=== PATIENT | female | born 1950 | race Caucasian/White ===

== ENCOUNTER 2016-12-04 11:53 | Emergency (ER) | payer MEDICARE ==
[2016-12-04 12:03] VITALS: TEMP 98.2; O2SAT 100
--- NOTE | 2016-12-04 12:20 | C.PDOC ---
History Of Present Illness 66 y/o female presents to Emergency Department for evaluation of area of swelling at dorsum of left wrist for the past month. Patient denies any pain, fall, injury, rash, or fever. Patient states that she has Hx of HTN, but has not taken her BP medications for the past 6 months. Patient states that she stopped taking the BP medications because her PMD, told her about the side effects of the medication is "stroke". Otherwise, patient denies chest pain, palpitations, shortness of breath, headache, dizziness, fever. Time Seen by Provider: 12/04/16 12:06 Chief Complaint (Nursing): Finger,Hand,&Wrist History Per: Patient History/Exam Limitations: no limitations Onset/Duration Of Symptoms: Days (1 month) Current Symptoms Are (Timing): Still Present Severity: Mild Pain Scale Rating Of: 0 Additional History Per: Patient Past Medical History Reviewed: Historical Data, Nursing Documentation, Vital Signs Vital Signs: Last Vital Signs Temp 98.2 F 12/04/16 11:59 Pulse 71 12/04/16 12:37 Resp 16 12/04/16 12:37 BP 240/127 H 12/04/16 12:37 Pulse Ox 100 12/04/16 13:42 - Medical History PMH: HTN Surgical History: No Surg Hx Family History: States: No Known Family Hx - Social History Hx Alcohol Use: No Hx Substance Use: No - Immunization History Hx Tetanus Toxoid Vaccination: No Hx Influenza Vaccination: No Hx Pneumococcal Vaccination: No Review Of Systems Except As Marked, All Systems Reviewed And Found Negative. Constitutional: Negative for: Fever, Chills Cardiovascular: Negative for: Chest Pain, Palpitations Respiratory: Negative for: Cough, Shortness of Breath Gastrointestinal: Negative for: Nausea, Vomiting Musculoskeletal: Negative for: Hand Pain Skin: Positive for: Other (swelling to left wrist) Neurological: Negative for: Weakness, Numbness, Headache, Dizziness Physical Exam - Physical Exam Appears: Well, Non-toxic, No Acute Distress, Other (mildly anxious) Skin: Warm, Dry, No Rash, Other (1cm palpable mild ganglion cyst at the dorsal aspect of left wrist, no erythema, non-tender) Head: Normacephalic Eye(s): bilateral: Normal Inspection Oral Mucosa: Moist Neck: Supple Cardiovascular: Rhythm Regular Respiratory: Normal Breath Sounds, No Rales, No Rhonchi, No Wheezing Extremity: Normal ROM (FROM of left wrist and digits), No Tenderness, Capillary Refill (< 2 seconds all digits), No Deformity, No Swelling Pulses: Left Radial: Normal, Right Radial: Normal Neurological/Psych: Oriented x3, Normal Motor, Normal Sensation ED Course And Treatment O2 Sat by Pulse Oximetry: 100 (on RA) Pulse Ox Interpretation: Normal Progress Note: Patient does not know what HTN meds she is supposed to be taking. Called [facility] pharmacy, patient was previously taking Lisinopril 40mg and amlodipine 10mg daily. Will give 1 dose in ED and Rxs for same. Patient instructed to follow up with PMD Dr. Brady in 1-2 days. Follow up info for hand surgery also given. Patient is well appearing, asymptomatic and comfortable being dfischarged home. She understands she should return to ED if symptoms worsen. Reevaluation Time: 12:30 Reassessment Condition: Improved Disposition Counseled Patient/Family Regarding: Studies Performed, Diagnosis, Need For Followup, Rx Given - Disposition Referrals: Libia Brady MD [Medical Doctor] - Gil Porter MD [Staff Provider] - Disposition: HOME/ ROUTINE Disposition Time: 12:30 Condition: STABLE Additional Instructions: FOLLOW UP WITH YOUR DOCTOR IN 1-2 DAYS IF GANGLION CYST GETS LARGER OR CAUSES YOU PAIN, FOLLOW UP WITH HAND SURGEON YOU NEED TO TAKE YOUR BLOOD PRESSURE MEDICATIONS EVERY DAY!!! RETURN TO ER IF YOU HAVE ANY CONCERNING SYMPTOMS Prescriptions: amLODIPine [Norvasc] 10 mg PO DAILY #30 tab Lisinopril [Zestril] 40 mg PO DAILY #30 tab Instructions: Ganglion Cysts (ED), Hypertension (ED) Forms: [employer] (Bulgarian) Print Language: MALIAN - POA Present On Arrival: None - Clinical Impression Clinical Impression: Ganglion cyst, Uncontrolled hypertension, Noncompliance with medication regimen - Scribe Statement The provider has reviewed the documentation as recorded by the Scribcollin Willis All medical record entries made by the Scribe were at my direction and personally dictated by me. I have reviewed the chart and agree that the record accurately reflects my personal performance of the history, physical exam, medical decision making, and the department course for this patient. I have also personally directed, reviewed, and agree with the discharge instructions and disposition.
[2016-12-04 12:57] VITALS: BP 240/127; PULSE 71; RESP 16
== END 2016-12-04 12:38 | disposition home or self-care (01) ==
LOC: C.ER 11:53
DX: M67.432 Ganglion, left wrist (principal); I10 Essential (primary) hypertension; Z91.19 Patient's noncompliance with other medical treatment and regimen

== ENCOUNTER 2018-03-25 20:46 | Inpatient (IN) | payer MEDICARE ==
--- NOTE | 2018-03-25 20:49 | C.PDOC ---
History Of Present Illness patient was brought in in acute respiratory distress. Unable to talk, just nods appropriately to questions. Pulse ox 85 on room air. Patient was placed on bipap. Saturation increasing to 94 Time Seen by Provider: 03/25/18 20:48 Past Medical History Reviewed: Historical Data, Nursing Documentation, Vital Signs - Medical History PMH: HTN Family History: States: No Known Family Hx - Social History Hx Alcohol Use: No Hx Substance Use: No - Immunization History Hx Tetanus Toxoid Vaccination: No Hx Influenza Vaccination: No Hx Pneumococcal Vaccination: No Review Of Systems Review Of Systems: ROS cannot be obtained secondary to pt's inabilty to answer questions. Physical Exam - Physical Exam Appears: In Acute Distress Skin: Dry, Pale Head: Normacephalic Eye(s): bilateral: Normal Inspection Nose: Flaring Oral Mucosa: Dry Teeth: Other (poor dentition) Neck: Supple Chest: Symmetrical Cardiovascular: Rhythm Regular Respiratory: Decreased Breath Sounds, Rales, Rhonchi, No Wheezing Gastrointestinal/Abdominal: Soft, No Tenderness, No Distention Back: No CVA Tenderness Extremity: Normal ROM Extremity: Bilateral: Atraumatic, Normal Color And Temperature, Normal ROM Pulses: Left Dorsalis Pedis: Normal, Right Dorsalis Pedis: Normal Neurological/Psych: Oriented x3 Gait: Unable To Assess ED Course And Treatment - Laboratory Results Result Diagrams: 03/25/18 21:03 03/25/18 21:03 ECG: Interpreted By Me, Viewed By Me ECG Rhythm: Sinus Tachycardia (126), R BBB, Nonspecific Changes Pulse Ox Interpretation: Abnormal (placed on bipap) - Radiology CXR: Interpreted by Me, Viewed By Me CXR Interpretation: Yes: COPD, Cardiomegaly, Other (mild vasc congestion). No: Infiltrates, Fracture Progress Note: 9:42 pm much improved. decreased oxygen to 50 % Critical Care Time - Critical Care Note Total Time (in mins): 30 Documented critical care: time excludes all time spent performing seperately billable procedures. Disposition Discussed With : Libia Brady Comment: accepted the pt on her service and took over the care at 9:48 PM Doctor Will See Patient In The: Hospital Counseled Patient/Family Regarding: Studies Performed, Diagnosis - Disposition Disposition: HOSPITALIZED Disposition Time: 20:49 Condition: FAIR - POA Present On Arrival: Poor Glycemic Control - Clinical Impression Clinical Impression: Dyspnea, Respiratory distress, acute Decision To Admit - Pt Status Changed To: Hospital Disposition Of: Inpatient - Admit Certification Admit to Inpatient:: After my assessment, the patient will require hospitalization for at least two midnights. This is because of the severity of symptoms shown, intensity of services needed, and/or the medical risk in this patient being treated as an outpatient. - InPatient: Physician Admission Certification: I certify that this patient requires 2 or more midnights of care for the following reason:: After my assessment, the patient will require hospitalization for at least two midnights. This is because of the severity of symptoms shown, intensity of services needed, and/or the medical risk in this patient being treated as an outpatient. - . Bed Request Type: Telemetry Admitting Physician: Libia Brady Patient Diagnosis: Dyspnea, Respiratory distress, acute
[2018-03-25 20:54] VITALS: BMI 19.4
[2018-03-25 21:08] LABS: BASO # 0.1 K/uL (0.0-0.2); BASO % 0.7 % (0.0-2.0); EOS # 0.9 K/uL (0.0-0.7); EOS % 7.2 % (0.0-4.0); HEMOGLOBIN 12.4 g/dL (11.0-16.0); LYMPH # 3.1 K/uL (1.0-4.3); LYMPH % 25.5 % (20.0-40.0); MEAN CELL VOLUME 95.4 fL (81.0-99.0); MEAN CORPUSCULAR HEMOGLOBIN 29.7 pg (27.0-31.0); MEAN CORPUSCULAR HGB CONC 31.1 g/dL (33.0-37.0); MEAN PLATELET VOLUME 7.7 fL (7.2-11.7); MONO # 1.2 K/uL (0.0-0.8); MONO % 9.6 % (0.0-10.0); NEUT # 6.9 K/uL (1.8-7.0); NRBC % 0.2 % (0.0-2.0); RBC 4.16 Mil/uL (3.80-5.20); WHITE BLOOD COUNT 12.1 K/uL (4.8-10.8)
[2018-03-25 21:17] LABS: PROTHROMBIN TIME 10.8 SECONDS (9.7-12.2)
[2018-03-25 21:19] LABS: ABG ALLEN TEST POS; ARTERIAL BLOOD GAS HCO3 23.4 mmol/L (21-28); ARTERIAL BLOOD GAS O2 SAT 99.2 % (95-98); ARTERIAL BLOOD GAS PCO2 40 mm/Hg (35-45); ARTERIAL BLOOD GAS PH 7.37 (7.35-7.45); ARTERIAL BLOOD GAS PO2 323 mm/Hg (80-100); ARTERIAL BLOOD GAS TCO2 24.3 mmol/L (22-28)
[2018-03-25 21:24] LABS: ALBUMIN 4.7 g/dL (3.5-5.0); AST/SGOT 23 U/L (14-36); BLOOD UREA NITROGEN 19 mg/dL (7-17); GFR NON-AFRICAN AMERICAN > 60
[2018-03-25] MEDS ORDERED: Albuterol-Ipratrop 3 mg / 0.5 (3 ml) UD ONE (21:26)
[2018-03-25 21:28] LABS: ALT/SGPT < 6 U/L (9-52)
[2018-03-25 21:36] LABS: B-TYPE NATRIURETIC PEPTIDE 178 pg/mL (0-900)
[2018-03-25] MEDS: Albuterol-Ipratrop 3 mg / 0.5 (3 ml) UD IH SCH (21:39)
[2018-03-25] MEDS ORDERED: Enoxaparin 40 mg Syringe SC STA (21:46)
[2018-03-25] MEDS ORDERED: Piperacillin/Tazobact 3.375 gm 100 ML IVPB STA (21:46)
[2018-03-25] MEDS ORDERED: Piperacillin/Tazobact 3.375 gm 100 ML IVPB ONE (22:24)
[2018-03-25] MEDS ORDERED: Enoxaparin 40 mg Syringe ONE (22:24)
[2018-03-25] MEDS: Piperacillin/Tazobact 3.375 GM in Sodium Chloride 100 ML IVPB SCH (22:38)
[2018-03-25] MEDS: Albuterol-Ipratrop 3 mg / 0.5 (3 ml) UD INH SCH (23:42)
--- NOTE | 2018-03-26 00:05 | CP.PCM.HP ---
History of Present Illness - History of Present Illness History of Present Illness: 67 y.o lady with PMH of Hypertension and Anxiety came to ER due difficulty breathing, Initially, patient had URI a week ago, with body aches and nasal symptoms,, patient then developw=ed cough that worsens, today, patient had difficulty breathing with wheezig hence ER Parient denies fever, syncope, chest pain, vomtinig diarhea, Patient was placed on Bipap, CXR showed hyperaeration . BP was uncontrolled, diastolic of more than 100. patient was admitted subsequently for further evaluation and mangement PMH as above Hypertension with white collar hypertension due to anxiety General anxiety Cholesterol Surgery denies Allergy NKDA Present on Admission - Present on Admission Any Indicators Present on Admission: No History of DVT/PE: No History of Uncontrolled Diabetes: No Urinary Catheter: No Decubitus Ulcer Present: No Review of Systems - Constitutional Constitutional: absent: Fever - EENT Eyes: absent: Other Visual Disturbances Ears: Decreased Hearing. absent: Dizziness Nose/Mouth/Throat: absent: Epistaxis, Nasal Congestion, Change in Voice, Dysphagia - Breasts Breasts: absent: Pain - Cardiovascular Cardiovascular: absent: Chest Pain, Diaphoresis, Dyspnea, Dyspnea on Exertion, Palpitations, Syncope - Respiratory Respiratory: Cough, Wheezing - Gastrointestinal Gastrointestinal: absent: Abdominal Pain, Cramping, Diarrhea, Vomiting - Genitourinary Genitourinary: absent: Dysuria - Reproductive: Female Reproductive:Female: Post Menopausal - Musculoskeletal Musculoskeletal: absent: Abnormal Gait, Deformity, Joint Swelling - Integumentary Integumentary: absent: Rash, Jaundice - Neurological Neurological: Abnormal Hearing. absent: Abnormal Gait, Abnormal Movements, Abnormal Speech, Behavioral Changes, Memory Loss, Sensory Deficit - Psychiatric Psychiatric: absent: Behavioral Changes, Confusion, Depression - Endocrine Endocrine: absent: Polydipsia, Polyphagia - Hematologic/Lymphatic Hematologic: absent: Easy Bleeding Past Patient History - Infectious Disease Hx of Infectious Diseases: None - Past Social History Smoking Status: Never Smoked - CARDIAC Hx Hypertension: Yes - PSYCHIATRIC Hx Substance Use: No - SURGICAL HISTORY Hx Surgeries: No - ANESTHESIA Hx Anesthesia: No Meds Allergies/Adverse Reactions: Allergies Allergy/AdvReac Type Severity Reaction Status Date / Time No Known Allergies Allergy Verified 03/25/18 20:59 Physical Exam - Constitutional Appears: Other (on BIPAP, comfortable now, conversant , ) - Head Exam Head Exam: ATRAUMATIC, NORMOCEPHALIC - Eye Exam Eye Exam: Normal appearance - ENT Exam ENT Exam: Mucous Membranes Moist - Respiratory Exam Respiratory Exam: Decreased Breath Sounds (but good air entry , ), NORMAL BREATHING PATTERN. absent: Wheezes (post treatment ) - Cardiovascular Exam Cardiovascular Exam: REGULAR RHYTHM - GI/Abdominal Exam GI & Abdominal Exam: Normal Bowel Sounds, Soft. absent: Distended, Tenderness - Back Exam Back exam: absent: rash noted - Neurological Exam Neurological exam: Alert, Normal Gait, Oriented x3 - Psychiatric Exam Psychiatric exam: Normal Affect, Normal Mood - Skin Skin Exam: Intact, Normal Color Results - Vital Signs Recent Vital Signs: Last Vital Signs Temp 97.7 F 03/25/18 22:50 Pulse 118 H 03/25/18 23:43 Resp 16 03/25/18 22:50 BP 147/105 H 03/25/18 22:50 Pulse Ox 100 03/25/18 22:50 - Labs Result Diagrams: 03/25/18 21:03 03/25/18 21:03 Labs: Laboratory Results - last 24 hr 03/25/18 03/25/18 03/25/18 21:03 21:03 21:03 WBC 12.1 H RBC 4.16 Hgb 12.4 Hct 39.7 MCV 95.4 MCH 29.7 MCHC 31.1 L RDW 13.0 Plt Count 386 MPV 7.7 Neut % (Auto) 57.0 Lymph % (Auto) 25.5 [place] % (Auto) 9.6 Eos % (Auto) 7.2 H Baso % (Auto) 0.7 Neut # (Auto) 6.9 Lymph # (Auto) 3.1 [place] # (Auto) 1.2 H Eos # (Auto) 0.9 H Baso # (Auto) 0.1 PT 10.8 INR 1.0 APTT 30 Puncture Site pCO2 pO2 HCO3 ABG pH ABG Total CO2 ABG O2 Saturation ABG Base Excess Caesar Test ABG Potassium A-a O2 Difference Respiratory Index Glucose Lactate FiO2 Inspiratory BiPAP Expiratory BiPAP Sodium 140 Potassium 3.5 L Chloride 100 Carbon Dioxide 29 Anion Gap 15 BUN 19 H Creatinine 0.8 Est GFR ( Amer) > 60 Est GFR (Non-Af Amer) > 60 Random Glucose 118 H Calcium 10.0 Magnesium 2.0 Total Bilirubin 0.6 AST 23 ALT < 6 L Alkaline Phosphatase 107 Troponin I < 0.0120 NT-Pro-B Natriuret Pep 178 Total Protein 9.4 H Albumin 4.7 Globulin 4.6 H Albumin/Globulin Ratio 1.0 Arterial Blood Potassium Influenza Typ A,B (EIA) 03/25/18 03/25/18 21:13 21:25 WBC RBC Hgb Hct MCV MCH MCHC RDW Plt Count MPV Neut % (Auto) Lymph % (Auto) [place] % (Auto) Eos % (Auto) Baso % (Auto) Neut # (Auto) Lymph # (Auto) [place] # (Auto) Eos # (Auto) Baso # (Auto) PT INR APTT Puncture Site Rb pCO2 40 pO2 323 H HCO3 23.4 ABG pH 7.37 ABG Total CO2 24.3 ABG O2 Saturation 99.2 H ABG Base Excess -2.0 Caesar Test Pos ABG Potassium 2.8 L A-a O2 Difference 340.0 Respiratory Index 1.1 Glucose 125 H Lactate 2.0 FiO2 100.0 Inspiratory BiPAP 12 Expiratory BiPAP 7 Sodium 140.0 Potassium Chloride 108.0 H Carbon Dioxide Anion Gap BUN Creatinine Est GFR ( Amer) Est GFR (Non-Af Amer) Random Glucose Calcium Magnesium Total Bilirubin AST ALT Alkaline Phosphatase Troponin I NT-Pro-B Natriuret Pep Total Protein Albumin Globulin Albumin/Globulin Ratio Arterial Blood Potassium 2.8 L Influenza Typ A,B (EIA) Negative for flu a/b Assessment & Plan - Assessment and Plan (Free Text) Assessment: Patient with PMH -Hypertension , General anxiety, Cholesterol, admitted for Respiratory Distress- Post URI a week ago, r/o Pneumonia, XCR -hyperarated- possible COPD -in exacerbation Respiratory Treatment, Inhalers Antibiotic Cultures. Pulmonary consult Telemetry GI prophylaxis DVT prophylaxis - Date & Time Date: 03/25/18 Time: 10:00
[2018-03-26] MEDS: Albuterol-Ipratrop 3 mg / 0.5 (3 ml) UD INH SCH ×5 (04:03→19:50)
[2018-03-26] MEDS: Piperacillin/Tazobact 3.375 GM in Sodium Chloride 100 ML IVPB SCH ×4 (05:00→22:11)
[2018-03-26] MEDS: Potassium Chloride 10 mEq ER Tab PO SCH (08:37)
--- NOTE | 2018-03-26 09:40 | RAD ---
Date of service: 03/25/2018 PROCEDURE: CHEST RADIOGRAPH, 1 VIEW HISTORY: SOB COMPARISON: None available. FINDINGS: LUNGS: Clear. Hyperinflated compatible with COPD/emphysema PLEURA: No pneumothorax or pleural fluid seen. CARDIOVASCULAR: No aortic atherosclerotic calcification present. Mild ectasia of the thoracic aorta. Mild cardiomegaly. OSSEOUS STRUCTURES: Thoracic spondylosis. Bilateral shoulder arthrosis. Benign-appearing sclerotic rimmed cystic foci projecting of the left humeral head either within the humerus and/or extrinsic loose bodies. VISUALIZED UPPER ABDOMEN: Normal. OTHER FINDINGS: Is tubing projecting over the right medial upper thorax correlate clinically. IMPRESSION: COPD. No consolidative infiltrate seen. No pneumothorax pleural effusion are gross CHF appreciated Other findings as above.
--- NOTE | 2018-03-26 10:13 | CP.PCM.PN ---
Subjective - Date & Time of Evaluation Date of Evaluation: 03/26/18 Time of Evaluation: 11:06 - Subjective Subjective: Chart Review BP- noted improving no Unusual events overnight CXR-noted COPD Emphysema no pneumonia patient seen in bed , off BIPAP- had solumedrol, respiratory treatment breathing better patient has no clear cut for smoking /second hand smoking Discussed CXR-COPD , no pneumonia and surprised with CXR finding Objective - Vital Signs/Intake and Output Vital Signs (last 24 hours): Temp Pulse Resp BP Pulse Ox 98.7 F 95 H 20 117/87 100 03/26/18 07:54 03/26/18 09:12 03/26/18 07:54 03/26/18 07:54 03/26/18 07:54 Intake and Output: 03/26/18 03/26/18 06:59 18:59 Intake Total 250 Output Total 300 Balance -50 - Medications Medications: Current Medications Albuterol/Ipratropium (Duoneb 3 Mg/0.5 Mg (3 Ml) Ud) 3 ml INH RQ4 [facility] Last Admin: 03/26/18 08:00 Dose: 3 ml Enoxaparin Sodium (Lovenox) 30 mg SC DAILY [facility] Piperacillin Sod/Tazobactam (Sod 3.375 gm/ Sodium Chloride) 100 mls @ 200 mls/hr IVPB Q6H [facility]; Protocol Last Admin: 03/26/18 05:00 Dose: 200 mls/hr Influenza Virus Vaccine (Flucelvax Quad 3700-4799 Syr) 60 mcg IM .ONCE ONE Stop: 03/27/18 10:01 Losartan Potassium (Cozaar) 100 mg PO DAILY [facility] Methylprednisolone (Solu-Medrol) 60 mg IV Q6 RODRIGO Last Admin: 03/26/18 05:09 Dose: 60 mg Pantoprazole Sodium (Protonix Ec Tab) 40 mg PO DAILY [facility] Pneumococcal Polyvalent Vaccine (Pneumovax 23 Vaccine) 0.5 ml IM .ONCE ONE Stop: 03/27/18 10:01 Potassium Chloride (Klor-Con 10) 10 meq PO BRK RODRIGO Stop: 03/28/18 23:59 Rosuvastatin Calcium (Crestor) 5 mg PO HS RODRIGO - Labs Labs: 03/25/18 21:03 03/25/18 21:03 PT 10.8 SECONDS (9.7-12.2) 03/25/18 21:03 INR 1.0 03/25/18 21:03 APTT 30 SECONDS (21-34) 03/25/18 21:03 - Constitutional Appears: Non-toxic, No Acute Distress - Head Exam Head Exam: ATRAUMATIC, NORMOCEPHALIC - Eye Exam Eye Exam: Normal appearance - ENT Exam ENT Exam: Mucous Membranes Moist - Neck Exam Neck Exam: Full ROM. absent: Tenderness - Respiratory Exam Respiratory Exam: Decreased Breath Sounds (with slight congestion), NORMAL BREATHING PATTERN. absent: Wheezes - Cardiovascular Exam Cardiovascular Exam: REGULAR RHYTHM - GI/Abdominal Exam GI & Abdominal Exam: Soft, Normal Bowel Sounds. absent: Tenderness - Extremities Exam Extremities Exam: Full ROM. absent: Joint Swelling, Pedal Edema, Tenderness - Back Exam Back Exam: Full ROM. absent: rash noted - Neurological Exam Neurological Exam: Alert, Awake, Normal Gait, Oriented x3 - Psychiatric Exam Psychiatric exam: Normal Affect, Normal Mood (but easiy gets excited ) - Skin Skin Exam: Intact, Normal Color Assessment and Plan - Assessment and Plan (Free Text) Assessment: Patient with history of Hypertension- improving, non smoker admitted for COPD in exacerbation- initially in respiratory distress- was on BIPap , placed on antibiotic, steroid, respiratory treatments currently with improvement , off BIPAP CXR no pneumonia will continue current treatments GI and DVT prophylaxis
[2018-03-26] MEDS: Enoxaparin 30 mg Syringe SC SCH (10:16)
[2018-03-26] MEDS: Pantoprazole 40 mg EC Tab PO SCH (10:16)
--- NOTE | 2018-03-26 11:14 | CARD ---
APPROVED REPORT Date of service: 03/25/2018 EKG Measurement Heart [id number] <Conclusion> sinus tach, Anteroseptal infarct, age undetermined ST & T wave abnormality,non specific.baseline artifacts. Abnormal ECG please repeat
[2018-03-26 16:19] LABS: SQUAMOUS EPITHIAL 2 /hpf (0-5); URINE BACTERIA RARE (<OCC); URINE BILIRUBIN NEGATIVE (NEGATIVE); URINE BLOOD NEGATIVE (NEGATIVE); URINE CLARITY Hazy (Clear); URINE COLOR Yellow (YELLOW); URINE GLUCOSE (UA) 3+ mg/dL (Normal); URINE LEUKOCYTE ESTERASE NEG Leu/uL (Negative); URINE PROTEIN 1+ mg/dL (NEGATIVE); URINE URIC ACID CRYSTALS OCC /hpf (<OCC); URINE UROBILINOGEN NORMAL mg/dL (0.2-1.0)
--- NOTE | 2018-03-26 17:46 | CP.PCM.CON ---
History of Present Illness - History of Present Illness History of Present Illness: Patient is a 67 year old female with hx of htn and anxiety who came to the hospital for worsening SOB. Patient had a viral URI a week ago and also had some trouble breathing with associated wheezes. CXR done suggested COPD so pulmonolo gy was consulted. Patient noted improvement in SOB with duonebs and BiPAP. She denies fever, syncope, chest pain, vomiting, or diarrhea. PMHx: Uncontrolled HTN and Anxiety PSHx: Denies Medications: amlodipine and lisinopril Social: nonsmoker Review of Systems - Review of Systems All systems: reviewed and no additional remarkable complaints except (Shortness of breath) Past Patient History - Infectious Disease Hx of Infectious Diseases: None - Past Medical History & Family History Past Medical History?: Yes - Past Social History Smoking Status: Never Smoked - CARDIAC Hx Hypertension: Yes - PULMONARY Hx Respiratory Disorders: No - NEUROLOGICAL Hx Neurological Disorder: No - HEENT Hx HEENT Problems: No - RENAL Hx Chronic Kidney Disease: No - ENDOCRINE/METABOLIC Hx Endocrine Disorders: No - HEMATOLOGICAL/ONCOLOGICAL Hx Blood Disorders: No - INTEGUMENTARY Hx Dermatological Problems: No - MUSCULOSKELETAL/RHEUMATOLOGICAL Hx Musculoskeletal Disorders: No Hx Falls: No - GASTROINTESTINAL Hx Gastrointestinal Disorders: No - GENITOURINARY/GYNECOLOGICAL Hx Genitourinary Disorders: No - PSYCHIATRIC Hx Substance Use: No - SURGICAL HISTORY Hx Surgeries: No - ANESTHESIA Hx Anesthesia: No Meds Allergies/Adverse Reactions: Allergies Allergy/AdvReac Type Severity Reaction Status Date / Time No Known Allergies Allergy Verified 03/25/18 20:59 - Medications Medications: Current Medications Albuterol/Ipratropium (Duoneb 3 Mg/0.5 Mg (3 Ml) Ud) 3 ml INH RQ4 [facility] Last Admin: 03/26/18 13:55 Dose: 3 ml Enoxaparin Sodium (Lovenox) 30 mg SC DAILY [facility] Last Admin: 03/26/18 10:16 Dose: 30 mg Piperacillin Sod/Tazobactam (Sod 3.375 gm/ Sodium Chloride) 100 mls @ 200 mls/hr IVPB Q6H [facility]; Protocol Last Admin: 03/26/18 10:16 Dose: 200 mls/hr Influenza Virus Vaccine (Flucelvax Quad [id number] Syr) 60 mcg IM .ONCE ONE Stop: 03/27/18 10:01 Losartan Potassium (Cozaar) 100 mg PO DAILY [facility] Last Admin: 03/26/18 10:15 Dose: 100 mg Methylprednisolone (Solu-Medrol) 60 mg IV Q6 [facility] Last Admin: 03/26/18 12:43 Dose: 60 mg Pantoprazole Sodium (Protonix Ec Tab) 40 mg PO DAILY [facility] Last Admin: 03/26/18 10:16 Dose: 40 mg Pneumococcal Polyvalent Vaccine (Pneumovax 23 Vaccine) 0.5 ml IM .ONCE ONE Stop: 03/27/18 10:01 Potassium Chloride (Klor-Con 10) 10 meq PO BRK [facility] Stop: 03/28/18 23:59 Last Admin: 03/26/18 08:37 Dose: 10 meq Rosuvastatin Calcium (Crestor) 5 mg PO [facility] Physical Exam - Head Exam Head Exam: ATRAUMATIC, NORMOCEPHALIC - ENT Exam ENT Exam: Mucous Membranes Moist - Neck Exam Neck exam: Positive for: Normal Inspection - Respiratory Exam Respiratory Exam: Rhonchi, Wheezes - Cardiovascular Exam Cardiovascular Exam: REGULAR RHYTHM - GI/Abdominal Exam GI & Abdominal Exam: Normal Bowel Sounds, Soft - Extremities Exam Extremities exam: Positive for: normal inspection - Neurological Exam Neurological exam: Alert, Oriented x3 Results - Vital Signs Recent Vital Signs: Last Vital Signs Temp 97.6 F 03/26/18 15:00 Pulse 105 H 03/26/18 15:00 Resp 18 03/26/18 15:00 BP 143/91 H 03/26/18 15:00 Pulse Ox 100 03/26/18 15:00 - Labs Result Diagrams: 03/25/18 21:03 03/25/18 21:03 Labs: Laboratory Results - last 24 hr 03/25/18 03/25/18 03/25/18 21:03 21:03 21:03 WBC 12.1 H RBC 4.16 Hgb 12.4 Hct 39.7 MCV 95.4 MCH 29.7 MCHC 31.1 L RDW 13.0 Plt Count 386 MPV 7.7 Neut % (Auto) 57.0 Lymph % (Auto) 25.5 [place] % (Auto) 9.6 Eos % (Auto) 7.2 H Baso % (Auto) 0.7 Neut # (Auto) 6.9 Lymph # (Auto) 3.1 [place] # (Auto) 1.2 H Eos # (Auto) 0.9 H Baso # (Auto) 0.1 PT 10.8 INR 1.0 APTT 30 Puncture Site pCO2 pO2 HCO3 ABG pH ABG Total CO2 ABG O2 Saturation ABG Base Excess Caesar Test ABG Potassium A-a O2 Difference Respiratory Index Glucose Lactate FiO2 Inspiratory BiPAP Expiratory BiPAP Sodium 140 Potassium 3.5 L Chloride 100 Carbon Dioxide 29 Anion Gap 15 BUN 19 H Creatinine 0.8 Est GFR ( Amer) > 60 Est GFR (Non-Af Amer) > 60 Random Glucose 118 H Calcium 10.0 Magnesium 2.0 Total Bilirubin 0.6 AST 23 ALT < 6 L Alkaline Phosphatase 107 Troponin I < 0.0120 NT-Pro-B Natriuret Pep 178 Total Protein 9.4 H Albumin 4.7 Globulin 4.6 H Albumin/Globulin Ratio 1.0 Arterial Blood Potassium Urine Color Urine Clarity Urine pH Ur Specific [place] Urine Protein Urine Glucose (UA) Urine Ketones Urine Blood Urine Nitrate Urine Bilirubin Urine Urobilinogen Ur Leukocyte Esterase Urine WBC (Auto) Urine RBC (Auto) Ur Squamous Epith Cells Uric Acid Crystals Urine Bacteria Influenza Typ A,B (EIA) 03/25/18 03/25/18 03/26/18 21:13 21:25 16:00 WBC RBC Hgb Hct MCV MCH MCHC RDW Plt Count MPV Neut % (Auto) Lymph % (Auto) [place] % (Auto) Eos % (Auto) Baso % (Auto) Neut # (Auto) Lymph # (Auto) [place] # (Auto) Eos # (Auto) Baso # (Auto) PT INR APTT Puncture Site Rb pCO2 40 pO2 323 H HCO3 23.4 ABG pH 7.37 ABG Total CO2 24.3 ABG O2 Saturation 99.2 H ABG Base Excess -2.0 Caesar Test Pos ABG Potassium 2.8 L A-a O2 Difference 340.0 Respiratory Index 1.1 Glucose 125 H Lactate 2.0 FiO2 100.0 Inspiratory BiPAP 12 Expiratory BiPAP 7 Sodium 140.0 Potassium Chloride 108.0 H Carbon Dioxide Anion Gap BUN Creatinine Est GFR ( Amer) Est GFR (Non-Af Amer) Random Glucose Calcium Magnesium Total Bilirubin AST ALT Alkaline Phosphatase Troponin I NT-Pro-B Natriuret Pep Total Protein Albumin Globulin Albumin/Globulin Ratio Arterial Blood Potassium 2.8 L Urine Color Yellow Urine Clarity Hazy Urine pH 5.0 Ur Specific [place] 1.024 Urine Protein 1+ H Urine Glucose (UA) 3+ H Urine Ketones Negative Urine Blood Negative Urine Nitrate Negative Urine Bilirubin Negative Urine Urobilinogen Normal Ur Leukocyte Esterase Neg Urine WBC (Auto) 1 Urine RBC (Auto) 1 Ur Squamous Epith Cells 2 Uric Acid Crystals Occ H Urine Bacteria Rare Influenza Typ A,B (EIA) Negative for flu a/b Assessment & Plan (1) COPD exacerbation Status: Acute Comment: continue IV steroids and nebulizer. IV antibiotics. Pulmonary function test as outpatient. Consider CAT scan of chest (2) Respiratory distress, acute Status: Acute
[2018-03-27] MEDS: Albuterol-Ipratrop 3 mg / 0.5 (3 ml) UD INH SCH ×6 (01:13→19:39)
[2018-03-27] MEDS: Piperacillin/Tazobact 3.375 GM in Sodium Chloride 100 ML IVPB SCH ×2 (04:04→10:25)
[2018-03-27] MEDS: Potassium Chloride 10 mEq ER Tab PO SCH (09:20)
[2018-03-27 09:30] LABS: HEMOGLOBIN 11.7 g/dL (11.0-16.0); MEAN CELL VOLUME 93.7 fL (81.0-99.0); MEAN CORPUSCULAR HEMOGLOBIN 31.1 pg (27.0-31.0); MEAN CORPUSCULAR HGB CONC 33.1 g/dL (33.0-37.0); MEAN PLATELET VOLUME 8.2 fL (7.2-11.7); RBC 3.76 Mil/uL (3.80-5.20); RED CELL DISTRIBUTION WIDTH 13.4 % (11.5-14.5)
[2018-03-27 09:39] LABS: WHITE BLOOD COUNT 19.8 K/uL (4.8-10.8)
[2018-03-27 09:49] LABS: ALB/GLOB RATIO 1.2 (1.0-2.1); ALBUMIN 4.3 g/dL (3.5-5.0); ALT/SGPT 7 U/L (9-52); AST/SGOT 33 U/L (14-36); BLOOD UREA NITROGEN 26 mg/dL (7-17); CALCIUM 9.8 mg/dl (8.6-10.4); GFR NON-AFRICAN AMERICAN 55
[2018-03-27] MEDS ORDERED: Influenza Vaccine 60 mcg/0.5 mL SYR (4YR UP) IM ONE (10:00)
[2018-03-27] MEDS ORDERED: Pneumococcal 23-Valent Vaccine IM ONE (10:00)
[2018-03-27] MEDS: Pantoprazole 40 mg EC Tab PO SCH (10:25)
[2018-03-27] MEDS: Enoxaparin 30 mg Syringe SC SCH (10:25)
--- NOTE | 2018-03-27 11:23 | CP.PCM.PN ---
<Rober Yañez - Last Filed: 03/27/18 11:20> Subjective - Date & Time of Evaluation Date of Evaluation: 03/27/18 Time of Evaluation: 11:20 - Subjective Subjective: call or contact centre operator resident documentation I was contacted regarding new EKG changes and positive troponins. Upon evaluating the patient she is resting comfortably without chest pain or any symptoms. However with T wave inversions in multiple contiguous precordial leads on EKG and elevated troponins, patient has NSTEMI. I spoke with Dr. Eldridge who recommended patient for ICU consult and also heparin bolus --> drip, ASA and Plavix STAT, O2 therapy which have been initiated. Spoke with Dr. Prasad who will have patient taken to ICU once a bed opens up, which should be soon as patients in ICU are being downgraded. Objective - Vital Signs/Intake and Output Vital Signs (last 24 hours): Temp Pulse Resp BP Pulse Ox 98.1 F 84 20 123/70 98 03/27/18 07:39 03/27/18 07:39 03/27/18 07:39 03/27/18 07:39 03/27/18 07:39 Intake and Output: 03/27/18 03/27/18 06:59 18:59 Intake Total 450 Balance 450 - Medications Medications: Current Medications Albuterol/Ipratropium (Duoneb 3 Mg/0.5 Mg (3 Ml) Ud) 3 ml INH RQ4 [facility] Last Admin: 03/27/18 07:25 Dose: Not Given Aspirin (Aspirin) 325 mg PO STAT [facility] Stop: 03/27/18 11:15 Clopidogrel Bisulfate (Plavix) 75 mg PO STAT [facility] Stop: 03/27/18 11:15 Piperacillin Sod/Tazobactam (Sod 3.375 gm/ Sodium Chloride) 100 mls @ 200 mls/hr IVPB Q6H [facility]; Protocol Last Admin: 03/27/18 04:04 Dose: 200 mls/hr Heparin Sodium/Sodium Chloride (Heparin 91219 Units/250ml 1/2 Normal Saline) 25,000 units in 250 mls @ 0 mls/hr IV .Q0M PRN; Protocol PRN Reason: PROTOCOL Losartan Potassium (Cozaar) 100 mg PO DAILY [facility] Last Admin: 03/27/18 10:26 Dose: 100 mg Methylprednisolone (Solu-Medrol) 60 mg IV Q6 [facility] Last Admin: 03/27/18 05:59 Dose: 60 mg Pantoprazole Sodium (Protonix Ec Tab) 40 mg PO DAILY [facility] Last Admin: 03/27/18 10:25 Dose: 40 mg Potassium Chloride (Klor-Con 10) 10 meq PO BRK [facility] Stop: 03/28/18 23:59 Last Admin: 03/27/18 09:20 Dose: 10 meq Rosuvastatin Calcium (Crestor) 5 mg PO HS [facility] Last Admin: 03/26/18 22:11 Dose: 5 mg - Labs Labs: 03/27/18 09:21 03/27/18 09:21 PT 10.8 SECONDS (9.7-12.2) 03/25/18 21:03 INR 1.0 03/25/18 21:03 APTT 30 SECONDS (21-34) 03/25/18 21:03 <Taiwo Willis - Last Filed: 04/02/18 08:58> Objective - Vital Signs/Intake and Output Vital Signs (last 24 hours): Temp Pulse Resp BP Pulse Ox 97.9 F 70 20 134/71 100 04/02/18 07:00 04/02/18 07:39 04/02/18 07:00 04/02/18 07:00 04/02/18 07:00 Intake and Output: 04/02/18 04/02/18 06:59 18:59 Intake Total 950 Output Total 900 Balance 50 - Medications Medications: Current Medications Albuterol/Ipratropium (Duoneb 3 Mg/0.5 Mg (3 Ml) Ud) 3 ml INH RQ4 [facility] Last Admin: 04/02/18 03:15 Dose: Not Given Amlodipine Besylate (Norvasc) 10 mg PO DAILY [facility] Last Admin: 04/01/18 10:48 Dose: 10 mg Aspirin (Ecotrin) 81 mg PO DAILY [facility] Last Admin: 04/01/18 10:48 Dose: 81 mg Clopidogrel Bisulfate (Plavix) 75 mg PO DAILY [facility] Last Admin: 04/01/18 10:48 Dose: 75 mg Furosemide (Lasix) 20 mg PO DAILY [facility] Last Admin: 04/01/18 10:48 Dose: 20 mg Guaifenesin (Robitussin) 200 mg PO Q4H PRN PRN Reason: Cough and congestion Last Admin: 04/01/18 13:08 Dose: 200 mg Guaifenesin (Mucinex La) 600 mg PO BID [facility] Last Admin: 04/01/18 17:34 Dose: 600 mg Heparin Sodium (Porcine) (Heparin) 5,000 units SC BID [facility] Last Admin: 04/01/18 17:34 Dose: 5,000 units Piperacillin Sod/Tazobactam Sod (Zosyn 2.25 Gm Iv Premix) 2.25 gm in 50 mls @ 100 mls/hr IVPB Q6H [facility]; Protocol Last Admin: 04/02/18 06:26 Dose: 100 mls/hr Influenza Virus Vaccine (Flucelvax Quad [id number] Syr) 60 mcg IM .ONCE ONE Stop: 04/02/18 10:01 Levothyroxine Sodium (Synthroid) 75 mcg PO DAILY@0630 [facility] Last Admin: 04/02/18 06:26 Dose: 75 mcg Losartan Potassium (Cozaar) 100 mg PO DAILY [facility] Last Admin: 04/01/18 10:48 Dose: 100 mg Methylprednisolone (Solu-Medrol) 40 mg IVP Q6 [facility] Last Admin: 04/02/18 06:26 Dose: 40 mg Metoprolol Tartrate (Lopressor) 12.5 mg PO BID [facility] Last Admin: 04/01/18 17:34 Dose: 12.5 mg Pantoprazole Sodium (Protonix Ec Tab) 40 mg PO DAILY [facility] Last Admin: 04/01/18 10:48 Dose: 40 mg Pneumococcal Polyvalent Vaccine (Pneumovax 23 Vaccine) 0.5 ml IM .ONCE ONE Stop: 04/02/18 10:01 Potassium Chloride (K-Dur 20 Meq Er Tab) 20 meq PO DAILY [facility] Stop: 04/02/18 10:46 Last Admin: 04/01/18 10:48 Dose: 20 meq Rosuvastatin Calcium (Crestor) 5 mg PO HS [facility] Last Admin: 04/01/18 21:34 Dose: 5 mg - Labs Labs: 03/31/18 08:28 04/01/18 11:34 PT 10.4 SECONDS (9.7-12.2) 03/31/18 08:28 INR 1.0 03/31/18 08:28 APTT 26 SECONDS (21-34) 03/31/18 08:28 Attending/Attestation - Attestation I have personally seen and examined this patient.: Yes I have fully participated in the care of the patient.: Yes I have reviewed all pertinent clinical information, including history, physical exam and plan: Yes Notes (Text): 04/02/18 08:58 This is a late entry. Care of this patient was discussed with resident Dr. Yañez. Taiwo Willis D.O.
--- NOTE | 2018-03-27 11:23 | CARD ---
APPROVED REPORT Date of service: 03/25/2018 EKG Measurement Heart [id number] <Conclusion> Sinus tachycardia with occasional premature ventricular complexes Septal infarct, age undetermined Abnormal ECG
[2018-03-27] MEDS ORDERED: Heparin25000 units/250ml 1/2NS 25,000 UNITS/250 ML BAG IV PRN (11:28)
[2018-03-27 12:37] LABS: PROTHROMBIN TIME 10.5 SECONDS (9.7-12.2)
[2018-03-27] MEDS: Heparin25000 units/250ml 1/2NS 25,000 UNITS/250 ML BAG IV PRN (12:44)
--- NOTE | 2018-03-27 14:33 | CP.PCM.CON ---
<Dionisio Zaragoza - Last Filed: 03/27/18 14:59> History of Present Illness - History of Present Illness History of Present Illness: PGY-1 ICU consult note for Dr Prasad Patient is a 67 year old female with pmhx of anxiety and HTN that was admitted on 03/26 for shortness of breath, difficulty breathing. Patient reported wheezing, and not being able to talk due to sobl. denies fever, chest pain, n/v/d/c, patient O2 in ED was 85, placed on bipap at that time, improved O2 to 94, with high blood pressure. Patient admitted for COPD exarcerbation. Patient's EKG showed T wave inversions in multiple precordial leads and elevated troponins, with no chest pain or symptoms this morning. As per Dr Chente vogt, patient started on heparin bolus, Plavix x 1 stat. Patient transferred to ICU for monitoring and possible cath. Patient denies chest pain, sob or any other complaints at this time. PMD: Ely Brady PMHX: HTN, anxiety, cholesterol Shx: denies All: NKDA sochx: denies smoking, alcohol or drug use Fhx: denies Review of Systems - Review of Systems All systems: reviewed and no additional remarkable complaints except Review of Systems: as per HPI Past Patient History - Infectious Disease Hx of Infectious Diseases: None - Past Medical History & Family History Past Medical History?: Yes - Past Social History Smoking Status: Never Smoked - CARDIAC Hx Hypertension: Yes - PULMONARY Hx Respiratory Disorders: No - NEUROLOGICAL Hx Neurological Disorder: No - HEENT Hx HEENT Problems: No - RENAL Hx Chronic Kidney Disease: No - ENDOCRINE/METABOLIC Hx Endocrine Disorders: No - HEMATOLOGICAL/ONCOLOGICAL Hx Blood Disorders: No - INTEGUMENTARY Hx Dermatological Problems: No - MUSCULOSKELETAL/RHEUMATOLOGICAL Hx Musculoskeletal Disorders: No Hx Falls: No - GASTROINTESTINAL Hx Gastrointestinal Disorders: No - GENITOURINARY/GYNECOLOGICAL Hx Genitourinary Disorders: No - PSYCHIATRIC Hx Substance Use: No - SURGICAL HISTORY Hx Surgeries: No - ANESTHESIA Hx Anesthesia: No Meds Allergies/Adverse Reactions: Allergies Allergy/AdvReac Type Severity Reaction Status Date / Time No Known Allergies Allergy Verified 03/25/18 20:59 - Medications Medications: Current Medications Albuterol/Ipratropium (Duoneb 3 Mg/0.5 Mg (3 Ml) Ud) 3 ml INH RQ4 [facility] Last Admin: 03/27/18 11:50 Dose: 3 ml Heparin Sodium/Sodium Chloride (Heparin 88124 Units/250ml 1/2 Normal Saline) 25,000 units in 250 mls @ 5.013 mls/hr IV .Q24H PRN; Protocol PRN Reason: PROTOCOL Last Admin: 03/27/18 12:44 Dose: 12 units/kg/hr, 5.013 mls/hr Piperacillin Sod/Tazobactam (Sod 3.375 gm/ Sodium Chloride) 100 mls @ 200 mls/hr IVPB Q6H [facility]; Protocol Influenza Virus Vaccine (Flucelvax Quad [id number] Syr) 60 mcg IM .ONCE ONE Stop: 03/30/18 10:01 Losartan Potassium (Cozaar) 100 mg PO DAILY [facility] Last Admin: 03/27/18 10:26 Dose: 100 mg Methylprednisolone (Solu-Medrol) 60 mg IV Q6 [facility] Last Admin: 03/27/18 05:59 Dose: 60 mg Pantoprazole Sodium (Protonix Ec Tab) 40 mg PO DAILY [facility] Last Admin: 03/27/18 10:25 Dose: 40 mg Pneumococcal Polyvalent Vaccine (Pneumovax 23 Vaccine) 0.5 ml IM .ONCE ONE Stop: 03/30/18 10:01 Potassium Chloride (Klor-Con 10) 10 meq PO BRK [facility] Stop: 03/28/18 23:59 Last Admin: 03/27/18 09:20 Dose: 10 meq Rosuvastatin Calcium (Crestor) 5 mg PO HS [facility] Last Admin: 03/26/18 22:11 Dose: 5 mg Physical Exam - Constitutional Appears: Non-toxic, No Acute Distress - Head Exam Head Exam: ATRAUMATIC, NORMAL INSPECTION, NORMOCEPHALIC - Eye Exam Eye Exam: EOMI, Normal appearance - ENT Exam ENT Exam: Mucous Membranes Moist, Normal Exam - Neck Exam Neck exam: Positive for: Normal Inspection - Respiratory Exam Respiratory Exam: Clear to Auscultation Bilateral, NORMAL BREATHING PATTERN. absent: Rales, Rhonchi, Wheezes - Cardiovascular Exam Cardiovascular Exam: Tachycardia, REGULAR RHYTHM, +S1, +S2 - GI/Abdominal Exam GI & Abdominal Exam: Normal Bowel Sounds, Soft. absent: Distended, Tenderness - Extremities Exam Extremities exam: Positive for: normal inspection - Back Exam Back exam: NORMAL INSPECTION - Neurological Exam Neurological exam: Alert, CN II-XII Intact, Oriented x3 - Psychiatric Exam Psychiatric exam: Normal Affect, Normal Mood - Skin Skin Exam: Dry, Intact, Normal Color, Warm Results - Vital Signs Recent Vital Signs: Last Vital Signs Temp 98.1 F 03/27/18 07:39 Pulse 84 03/27/18 07:39 Resp 20 03/27/18 07:39 BP 123/70 03/27/18 07:39 Pulse Ox 98 03/27/18 07:39 - Labs Result Diagrams: 03/27/18 09:21 03/27/18 09:21 Labs: Laboratory Results - last 24 hr 03/26/18 03/27/18 03/27/18 16:00 09:21 09:21 WBC 19.8 H D RBC 3.76 L Hgb 11.7 Hct 35.2 MCV 93.7 MCH 31.1 H MCHC 33.1 RDW 13.4 Plt Count 372 MPV 8.2 PT INR APTT Sodium 140 Potassium 3.5 L Chloride 105 Carbon Dioxide 27 Anion Gap 12 BUN 26 H Creatinine 1.0 Est GFR ( Amer) > 60 Est GFR (Non-Af Amer) 55 Random Glucose 151 H D Calcium 9.8 Phosphorus 3.3 Magnesium 2.2 Total Bilirubin 1.3 AST 33 ALT 7 L Alkaline Phosphatase 95 Troponin I 0.8660 H* Total Protein 7.8 Albumin 4.3 Globulin 3.5 Albumin/Globulin Ratio 1.2 Urine Color Yellow Urine Clarity Hazy Urine pH 5.0 Ur Specific [place] 1.024 Urine Protein 1+ H Urine Glucose (UA) 3+ H Urine Ketones Negative Urine Blood Negative Urine Nitrate Negative Urine Bilirubin Negative Urine Urobilinogen Normal Ur Leukocyte Esterase Neg Urine WBC (Auto) 1 Urine RBC (Auto) 1 Ur Squamous Epith Cells 2 Uric Acid Crystals Occ H Urine Bacteria Rare 03/27/18 12:26 WBC RBC Hgb Hct MCV MCH MCHC RDW Plt Count MPV PT 10.5 INR 1.0 APTT 36 H D Sodium Potassium Chloride Carbon Dioxide Anion Gap BUN Creatinine Est GFR ( Amer) Est GFR (Non-Af Amer) Random Glucose Calcium Phosphorus Magnesium Total Bilirubin AST ALT Alkaline Phosphatase Troponin I Total Protein Albumin Globulin Albumin/Globulin Ratio Urine Color Urine Clarity Urine pH Ur Specific [place] Urine Protein Urine Glucose (UA) Urine Ketones Urine Blood Urine Nitrate Urine Bilirubin Urine Urobilinogen Ur Leukocyte Esterase Urine WBC (Auto) Urine RBC (Auto) Ur Squamous Epith Cells Uric Acid Crystals Urine Bacteria Assessment & Plan - Assessment and Plan (Free Text) Plan: Patient is a 67 year old female with pmhx of HTN and anxiety admitted to hospital 01/24 for COPD exarcerbation, was found to have new EKG changes this morning and elevated toponin indicated STEMI diagnosis. Cardiology on case, Dr Eldridge, started on heparin drip, gave one dose of plavix and ASA, transferred to ICU for monitoring, possible cath Neuro no acute issues AAO x 3 Cardio am EKG shows t wave inversion precordial leads 1st troponin negative, second trops positive 0.88 NSTEMI Heparin ggt plavix x 1 dose ASA coozar Statin continue to monitor patient Pulm COPD exarcerbation continue duonebs solumedrool 60mg IV Zosyn GI Advise for NPO until knowing if cath today resume HHD if not procedure to be done today protonix Renal no acute issues ID Blood cultures Zosyn for possible resp infection PPX DVT - heparin drip GI - protonix Plan discussed with Dr Osmar Zaragoza, PGY-1 - Date & Time Date: 03/27/18 Time: 14:33 <Yong Prasad - Last Filed: 03/27/18 16:01> Meds - Medications Medications: Current Medications Albuterol/Ipratropium (Duoneb 3 Mg/0.5 Mg (3 Ml) Ud) 3 ml INH RQ4 [facility] Last Admin: 03/27/18 11:50 Dose: 3 ml Heparin Sodium/Sodium Chloride (Heparin 86307 Units/250ml 1/2 Normal Saline) 25,000 units in 250 mls @ 5.013 mls/hr IV .Q24H PRN; Protocol PRN Reason: PROTOCOL Last Admin: 03/27/18 12:44 Dose: 12 units/kg/hr, 5.013 mls/hr Piperacillin Sod/Tazobactam (Sod 3.375 gm/ Sodium Chloride) 100 mls @ 200 mls/hr IVPB Q6H [facility]; Protocol Influenza Virus Vaccine (Flucelvax Quad [id number] Syr) 60 mcg IM .ONCE ONE Stop: 03/30/18 10:01 Losartan Potassium (Cozaar) 100 mg PO DAILY [facility] Last Admin: 03/27/18 10:26 Dose: 100 mg Methylprednisolone (Solu-Medrol) 60 mg IV Q6 [facility] Last Admin: 03/27/18 05:59 Dose: 60 mg Pantoprazole Sodium (Protonix Ec Tab) 40 mg PO DAILY [facility] Last Admin: 03/27/18 10:25 Dose: 40 mg Pneumococcal Polyvalent Vaccine (Pneumovax 23 Vaccine) 0.5 ml IM .ONCE ONE Stop: 03/30/18 10:01 Potassium Chloride (Klor-Con 10) 10 meq PO BRK [facility] Stop: 03/28/18 23:59 Last Admin: 03/27/18 09:20 Dose: 10 meq Rosuvastatin Calcium (Crestor) 5 mg PO HS [facility] Last Admin: 03/26/18 22:11 Dose: 5 mg Results - Vital Signs Recent Vital Signs: Last Vital Signs Temp 98.1 F 03/27/18 07:39 Pulse 102 H 03/27/18 15:00 Resp 17 03/27/18 15:00 BP 144/90 03/27/18 14:10 Pulse Ox 100 03/27/18 15:00 - Labs Result Diagrams: 03/27/18 09:21 03/27/18 09:21 Labs: Laboratory Results - last 24 hr 03/26/18 03/27/18 03/27/18 16:00 09:21 09:21 WBC 19.8 H D RBC 3.76 L Hgb 11.7 Hct 35.2 MCV 93.7 MCH 31.1 H MCHC 33.1 RDW 13.4 Plt Count 372 MPV 8.2 PT INR APTT Sodium 140 Potassium 3.5 L Chloride 105 Carbon Dioxide 27 Anion Gap 12 BUN 26 H Creatinine 1.0 Est GFR ( Amer) > 60 Est GFR (Non-Af Amer) 55 Random Glucose 151 H D Calcium 9.8 Phosphorus 3.3 Magnesium 2.2 Total Bilirubin 1.3 AST 33 ALT 7 L Alkaline Phosphatase 95 Troponin I 0.8660 H* Total Protein 7.8 Albumin 4.3 Globulin 3.5 Albumin/Globulin Ratio 1.2 Urine Color Yellow Urine Clarity Hazy Urine pH 5.0 Ur Specific [place] 1.024 Urine Protein 1+ H Urine Glucose (UA) 3+ H Urine Ketones Negative Urine Blood Negative Urine Nitrate Negative Urine Bilirubin Negative Urine Urobilinogen Normal Ur Leukocyte Esterase Neg Urine WBC (Auto) 1 Urine RBC (Auto) 1 Ur Squamous Epith Cells 2 Uric Acid Crystals Occ H Urine Bacteria Rare 03/27/18 12:26 WBC RBC Hgb Hct MCV MCH MCHC RDW Plt Count MPV PT 10.5 INR 1.0 APTT 36 H D Sodium Potassium Chloride Carbon Dioxide Anion Gap BUN Creatinine Est GFR ( Amer) Est GFR (Non-Af Amer) Random Glucose Calcium Phosphorus Magnesium Total Bilirubin AST ALT Alkaline Phosphatase Troponin I Total Protein Albumin Globulin Albumin/Globulin Ratio Urine Color Urine Clarity Urine pH Ur Specific [place] Urine Protein Urine Glucose (UA) Urine Ketones Urine Blood Urine Nitrate Urine Bilirubin Urine Urobilinogen Ur Leukocyte Esterase Urine WBC (Auto) Urine RBC (Auto) Ur Squamous Epith Cells Uric Acid Crystals Urine Bacteria Attending/Attestation - Attestation I have personally seen and examined this patient.: Yes I have fully participated in the care of the patient.: Yes I have reviewed all pertinent clinical information: Yes Notes (Text): 03/27/18 15:56 I have seen and examined the patient. Medical records, lab studies, and imaging were reviewed by me and a management plan was formulated on multidisciplinary rounds with resident Dr. Zaragoza. I agree with their documented assessment and plan. Presents with NSTEMI with postive Troponins, EKG changes and SOB. She was started on heparin drip, ASA. Plan for eventual PCI. Critical Care Time 35 minutes. Multi-disciplinary rounds were performed with house staff, nursing, speech therapy, respiratory therapy, pharmacy and nutrition with integrated input from the primary team/attending and other consulting services. The documented time is cumulative and includes review of patient data/exams/labs/chart review and examination of the patient on rounds and throughout the day; time is exclusive of any procedures or teaching time.
--- NOTE | 2018-03-27 14:52 | CP.PCM.PN ---
Subjective - Date & Time of Evaluation Date of Evaluation: 03/27/18 Time of Evaluation: 09:00 - Subjective Subjective: patient seen and examined this morning lying comfortably in no distress Patient states shortness of breath much better Later patient transferred to intensive care unit for elevated troponins started on IV heparin Objective - Vital Signs/Intake and Output Vital Signs (last 24 hours): Temp Pulse Resp BP Pulse Ox 98.1 F 59 L 20 123/70 98 03/27/18 07:39 03/27/18 08:11 03/27/18 07:39 03/27/18 07:39 03/27/18 07:39 Intake and Output: 03/27/18 03/27/18 06:59 18:59 Intake Total 450 Balance 450 - Medications Medications: Current Medications Albuterol/Ipratropium (Duoneb 3 Mg/0.5 Mg (3 Ml) Ud) 3 ml INH RQ4 [facility] Last Admin: 03/27/18 11:50 Dose: 3 ml Heparin Sodium/Sodium Chloride (Heparin 49607 Units/250ml 1/2 Normal Saline) 25,000 units in 250 mls @ 5.013 mls/hr IV .Q24H PRN; Protocol PRN Reason: PROTOCOL Last Admin: 03/27/18 12:44 Dose: 12 units/kg/hr, 5.013 mls/hr Piperacillin Sod/Tazobactam (Sod 3.375 gm/ Sodium Chloride) 100 mls @ 200 mls/hr IVPB Q6H [facility]; Protocol Influenza Virus Vaccine (Flucelvax Quad 3181-4367 Syr) 60 mcg IM .ONCE ONE Stop: 03/30/18 10:01 Losartan Potassium (Cozaar) 100 mg PO DAILY [facility] Last Admin: 03/27/18 10:26 Dose: 100 mg Methylprednisolone (Solu-Medrol) 60 mg IV Q6 [facility] Last Admin: 03/27/18 05:59 Dose: 60 mg Pantoprazole Sodium (Protonix Ec Tab) 40 mg PO DAILY [facility] Last Admin: 03/27/18 10:25 Dose: 40 mg Pneumococcal Polyvalent Vaccine (Pneumovax 23 Vaccine) 0.5 ml IM .ONCE ONE Stop: 03/30/18 10:01 Potassium Chloride (Klor-Con 10) 10 meq PO BRK [facility] Stop: 03/28/18 23:59 Last Admin: 03/27/18 09:20 Dose: 10 meq Rosuvastatin Calcium (Crestor) 5 mg PO HS [facility] Last Admin: 03/26/18 22:11 Dose: 5 mg - Labs Labs: 03/27/18 09:21 03/27/18 09:21 PT 10.5 SECONDS (9.7-12.2) 03/27/18 12:26 INR 1.0 03/27/18 12:26 APTT 36 SECONDS (21-34) H D 03/27/18 12:26 - Head Exam Head Exam: ATRAUMATIC, NORMOCEPHALIC - ENT Exam ENT Exam: Mucous Membranes Moist - Neck Exam Neck Exam: Normal Inspection - Respiratory Exam Respiratory Exam: Clear to Ausculation Bilateral - Cardiovascular Exam Cardiovascular Exam: REGULAR RHYTHM - GI/Abdominal Exam GI & Abdominal Exam: Soft, Normal Bowel Sounds Assessment and Plan (1) COPD exacerbation Assessment & Plan: continue nebulizer treatment and steroids possible cardiac catheter tomorrow Status: Acute (2) Respiratory distress, acute Status: Acute
[2018-03-27 17:21] LABS: CK-MB 3.61 ng/mL (0.0-3.38); TROPONIN I 1.14 ng/mL (0.00-0.120)
--- NOTE | 2018-03-27 18:24 | CP.PCM.PN ---
Subjective - Date & Time of Evaluation Date of Evaluation: 03/27/18 Time of Evaluation: 09:00 - Subjective Subjective: patient seen- up in bed- eating , has no complaint, breathing good, EKG repprt with T wave inversion,stat EJ and cardio ordered patient denies chest pain, dyspnea wishes to go home , new condition discussed Objective - Vital Signs/Intake and Output Vital Signs (last 24 hours): Temp Pulse Resp BP Pulse Ox 98.2 F 88 21 133/81 99 03/27/18 15:00 03/27/18 16:10 03/27/18 16:10 03/27/18 16:10 03/27/18 16:10 Intake and Output: 03/27/18 03/27/18 06:59 18:59 Intake Total 450 240 Balance 450 240 - Medications Medications: Current Medications Albuterol/Ipratropium (Duoneb 3 Mg/0.5 Mg (3 Ml) Ud) 3 ml INH RQ4 [facility] Last Admin: 03/27/18 11:50 Dose: 3 ml Heparin Sodium/Sodium Chloride (Heparin 20447 Units/250ml 1/2 Normal Saline) 25,000 units in 250 mls @ 5.013 mls/hr IV .Q24H PRN; Protocol PRN Reason: PROTOCOL Last Admin: 03/27/18 12:44 Dose: 12 units/kg/hr, 5.013 mls/hr Piperacillin Sod/Tazobactam Sod (Zosyn 2.25 Gm Iv Premix) 2.25 gm in 50 mls @ 100 mls/hr IVPB Q6H [facility]; Protocol Influenza Virus Vaccine (Flucelvax Quad 2126-2725 Syr) 60 mcg IM .ONCE ONE Stop: 03/30/18 10:01 Losartan Potassium (Cozaar) 100 mg PO DAILY [facility] Last Admin: 03/27/18 10:26 Dose: 100 mg Methylprednisolone (Solu-Medrol) 60 mg IV Q12 [facility] Pantoprazole Sodium (Protonix Ec Tab) 40 mg PO DAILY [facility] Last Admin: 03/27/18 10:25 Dose: 40 mg Pneumococcal Polyvalent Vaccine (Pneumovax 23 Vaccine) 0.5 ml IM .ONCE ONE Stop: 03/30/18 10:01 Potassium Chloride (Klor-Con 10) 10 meq PO BRK [facility] Stop: 03/28/18 23:59 Last Admin: 03/27/18 09:20 Dose: 10 meq Rosuvastatin Calcium (Crestor) 5 mg PO HS [facility] Last Admin: 03/26/18 22:11 Dose: 5 mg - Labs Labs: 03/27/18 09:21 03/27/18 09:21 PT 10.5 SECONDS (9.7-12.2) 03/27/18 12:26 INR 1.0 03/27/18 12:26 APTT 36 SECONDS (21-34) H D 03/27/18 12:26 - Constitutional Appears: Non-toxic - Head Exam Head Exam: ATRAUMATIC, NORMOCEPHALIC - Eye Exam Eye Exam: Normal appearance. absent: Nystagmus - ENT Exam ENT Exam: Mucous Membranes Moist - Neck Exam Neck Exam: Full ROM. absent: Tenderness - Respiratory Exam Respiratory Exam: Decreased Breath Sounds, Clear to Ausculation Bilateral, NORMAL BREATHING PATTERN - Cardiovascular Exam Cardiovascular Exam: REGULAR RHYTHM - GI/Abdominal Exam GI & Abdominal Exam: Soft. absent: Tenderness - Extremities Exam Extremities Exam: Full ROM. absent: Calf Tenderness, Pedal Edema - Neurological Exam Neurological Exam: Alert, Awake, Normal Gait, Oriented x3 - Psychiatric Exam Psychiatric exam: Normal Affect, Normal Mood - Skin Skin Exam: Intact, Normal Color Assessment and Plan - Assessment and Plan (Free Text) Assessment: Patient admitted for COPD exacerbation , with good sign of improvement, EKG changes noted and and EJ turned postive-although asymptomatic patient aware-as discussed cardio management undergoing patient transferred to ICU for further management Hyertension- controlled f urther management
[2018-03-27] MEDS: Piperacill/Tazo 2.25gm in Dex 2.25 GM/50 ML BAG IVPB SCH (19:32)
--- NOTE | 2018-03-27 23:48 | CP.PCM.CON ---
History of Present Illness - History of Present Illness History of Present Illness: Patient seen and evaluated Non STEMI ECHO: EF 40-45%, anterior ischemia suggestive of LAD disease For Cath Friday Patient is a 67 year old female with pmhx of anxiety and HTN that was admitted on 03/26 for shortness of breath, difficulty breathing. Patient reported wheezing, and not being able to talk due to sobl. denies fever, chest pain, n/v/d/c, patient O2 in ED was 85, placed on bipap at that time, improved O2 to 94, with high blood pressure. Patient admitted for COPD exarcerbation. Patient's EKG showed T wave inversions in multiple precordial leads and elevated troponins, with no chest pain or symptoms this morning. As per Dr Chente vogt, patient started on heparin bolus, Plavix x 1 stat. Patient transferred to ICU for monitoring and possible cath. Patient denies chest pain, sob or any other complaints at this time. PMD: Ely Brady PMHX: HTN, anxiety, cholesterol Shx: denies All: NKDA sochx: denies smoking, alcohol or drug use Fhx: denies Review of Systems - Review of Systems All systems: reviewed and no additional remarkable complaints except Review of Systems: as per HPI Physical Exam - Constitutional Appears: Non-toxic, No Acute Distress - Head Exam Head Exam: ATRAUMATIC, NORMAL INSPECTION, NORMOCEPHALIC - Eye Exam Eye Exam: EOMI, Normal appearance - ENT Exam ENT Exam: Mucous Membranes Moist, Normal Exam - Neck Exam Neck exam: Positive for: Normal Inspection - Respiratory Exam Respiratory Exam: Clear to Auscultation Bilateral, NORMAL BREATHING PATTERN. absent: Rales, Rhonchi, Wheezes - Cardiovascular Exam Cardiovascular Exam: Tachycardia, REGULAR RHYTHM, +S1, +S2 - GI/Abdominal Exam GI & Abdominal Exam: Normal Bowel Sounds, Soft. absent: Distended, Tenderness - Extremities Exam Extremities exam: Positive for: normal inspection - Back Exam Back exam: NORMAL INSPECTION - Neurological Exam Neurological exam: Alert, CN II-XII Intact, Oriented x3 - Psychiatric Exam Psychiatric exam: Normal Affect, Normal Mood - Skin Skin Exam: Dry, Intact, Normal Color, Warm Past Patient History - Infectious Disease Hx of Infectious Diseases: None - Past Medical History & Family History Past Medical History?: Yes - Past Social History Smoking Status: Never Smoked - CARDIAC Hx Hypertension: Yes - PULMONARY Hx Respiratory Disorders: No - NEUROLOGICAL Hx Neurological Disorder: No - HEENT Hx HEENT Problems: No - RENAL Hx Chronic Kidney Disease: No - ENDOCRINE/METABOLIC Hx Endocrine Disorders: No - HEMATOLOGICAL/ONCOLOGICAL Hx Blood Disorders: No - INTEGUMENTARY Hx Dermatological Problems: No - MUSCULOSKELETAL/RHEUMATOLOGICAL Hx Musculoskeletal Disorders: No Hx Falls: No - GASTROINTESTINAL Hx Gastrointestinal Disorders: No - GENITOURINARY/GYNECOLOGICAL Hx Genitourinary Disorders: No - PSYCHIATRIC Hx Substance Use: No - SURGICAL HISTORY Hx Surgeries: No - ANESTHESIA Hx Anesthesia: No Meds Allergies/Adverse Reactions: Allergies Allergy/AdvReac Type Severity Reaction Status Date / Time No Known Allergies Allergy Verified 03/25/18 20:59 - Medications Medications: Current Medications Albuterol/Ipratropium (Duoneb 3 Mg/0.5 Mg (3 Ml) Ud) 3 ml INH RQ4 [facility] Last Admin: 03/27/18 19:39 Dose: 3 ml Heparin Sodium/Sodium Chloride (Heparin 59209 Units/250ml 1/2 Normal Saline) 25,000 units in 250 mls @ 5.013 mls/hr IV .Q24H PRN; Protocol PRN Reason: PROTOCOL Last Admin: 03/27/18 12:44 Dose: 12 units/kg/hr, 5.013 mls/hr Piperacillin Sod/Tazobactam Sod (Zosyn 2.25 Gm Iv Premix) 2.25 gm in 50 mls @ 100 mls/hr IVPB Q6H [facility]; Protocol Last Admin: 03/27/18 19:32 Dose: 100 mls/hr Influenza Virus Vaccine (Flucelvax Quad 0425-7518 Syr) 60 mcg IM .ONCE ONE Stop: 03/30/18 10:01 Losartan Potassium (Cozaar) 100 mg PO DAILY [facility] Last Admin: 03/27/18 10:26 Dose: 100 mg Methylprednisolone (Solu-Medrol) 60 mg IVP Q12H [facility] Pantoprazole Sodium (Protonix Ec Tab) 40 mg PO DAILY [facility] Last Admin: 03/27/18 10:25 Dose: 40 mg Pneumococcal Polyvalent Vaccine (Pneumovax 23 Vaccine) 0.5 ml IM .ONCE ONE Stop: 03/30/18 10:01 Potassium Chloride (Klor-Con 10) 10 meq PO BRK [facility] Stop: 03/28/18 23:59 Last Admin: 03/27/18 09:20 Dose: 10 meq Rosuvastatin Calcium (Crestor) 5 mg PO HS [facility] Last Admin: 03/27/18 23:06 Dose: 5 mg Results - Vital Signs Recent Vital Signs: Last Vital Signs Temp 98.2 F 03/27/18 19:00 Pulse 79 03/27/18 19:10 Resp 15 03/27/18 19:10 BP 144/90 03/27/18 19:10 Pulse Ox 100 03/27/18 19:10 - Labs Result Diagrams: 03/28/18 04:03 03/28/18 04:03 Labs: Laboratory Results - last 24 hr 03/27/18 03/27/18 03/27/18 09:21 09:21 12:26 WBC 19.8 H D RBC 3.76 L Hgb 11.7 Hct 35.2 MCV 93.7 MCH 31.1 H MCHC 33.1 RDW 13.4 Plt Count 372 MPV 8.2 PT 10.5 INR 1.0 APTT 36 H D Sodium 140 Potassium 3.5 L Chloride 105 Carbon Dioxide 27 Anion Gap 12 BUN 26 H Creatinine 1.0 Est GFR ( Amer) > 60 Est GFR (Non-Af Amer) 55 Random Glucose 151 H D Calcium 9.8 Phosphorus 3.3 Magnesium 2.2 Total Bilirubin 1.3 AST 33 ALT 7 L Alkaline Phosphatase 95 Total Creatine Kinase CK-MB (Mass) Troponin I 0.8660 H* Total Protein 7.8 Albumin 4.3 Globulin 3.5 Albumin/Globulin Ratio 1.2 03/27/18 03/27/18 16:46 19:17 WBC RBC Hgb Hct MCV MCH MCHC RDW Plt Count MPV PT INR APTT 51 H D Sodium Potassium Chloride Carbon Dioxide Anion Gap BUN Creatinine Est GFR ( Amer) Est GFR (Non-Af Amer) Random Glucose Calcium Phosphorus Magnesium Total Bilirubin AST ALT Alkaline Phosphatase Total Creatine Kinase 75 CK-MB (Mass) 3.61 H Troponin I 1.1400 H* Total Protein Albumin Globulin Albumin/Globulin Ratio Assessment & Plan - Assessment and Plan (Free Text) Assessment: Non STEMI ECHO: EF 40-45%, anterior ischemia suggestive of LAD disease For Cath Friday
[2018-03-28] MEDS: Albuterol-Ipratrop 3 mg / 0.5 (3 ml) UD INH SCH ×7 (00:32→23:35)
[2018-03-28] MEDS: Piperacill/Tazo 2.25gm in Dex 2.25 GM/50 ML BAG IVPB SCH ×4 (01:15→19:45)
[2018-03-28 04:08] LABS: BASO # 0.1 K/uL (0.0-0.2); BASO % 0.3 % (0.0-2.0); EOS # 0.1 K/uL (0.0-0.7); EOS % 0.5 % (0.0-4.0); HEMOGLOBIN 11.4 g/dL (11.0-16.0); LYMPH # 0.3 K/uL (1.0-4.3); LYMPH % 1.4 % (20.0-40.0); MEAN CELL VOLUME 96.1 fL (81.0-99.0); MEAN CORPUSCULAR HEMOGLOBIN 30.1 pg (27.0-31.0); MEAN CORPUSCULAR HGB CONC 31.3 g/dL (33.0-37.0); MEAN PLATELET VOLUME 8.7 fL (7.2-11.7); MONO # 0.9 K/uL (0.0-0.8); MONO % 4.7 % (0.0-10.0); NEUT # 18.5 K/uL (1.8-7.0); NEUT % 93.1 % (50.0-75.0); NRBC % 0.1 % (0.0-2.0); PLATELET COUNT 304 K/uL (130-400); RBC 3.78 Mil/uL (3.80-5.20); RED CELL DISTRIBUTION WIDTH 13.6 % (11.5-14.5); WHITE BLOOD COUNT 19.9 K/uL (4.8-10.8)
[2018-03-28 04:37] LABS: ALB/GLOB RATIO 1.1 (1.0-2.1); ALBUMIN 3.5 g/dL (3.5-5.0); ALT/SGPT 8 U/L (9-52); AST/SGOT 37 U/L (14-36); BLOOD UREA NITROGEN 32 mg/dL (7-17); CALCIUM 9.5 mg/dl (8.6-10.4); CK-MB 2.94 ng/mL (0.0-3.38); GFR NON-AFRICAN AMERICAN > 60; TROPONIN I 0.509 ng/mL (0.00-0.120)
[2018-03-28 07:15] LABS: BANDS 2 % (0-2); LYMPHOCYTE 3 % (20-40); MONOCYTE 3 % (0-10); NEUTROPHIL 92 % (50-75); PLATELET ESTIMATE NORMAL (NORMAL); TOTAL CELLS COUNTED 100
--- NOTE | 2018-03-28 13:17 | CARD ---
APPROVED REPORT Date of service: 03/27/2018 EXAM: Two-dimensional and M-mode echocardiogram with Doppler and color Doppler. INDICATION Dyspnea Syncope COPD RISK FACTORS Hypertension 2D DIMENSIONS IVSd1.0 (0.7-1.1cm)LVDd4.6 (3.9-5.9cm) PWd1.0 (0.7-1.1cm)LA Hgibtx05 (18-58mL) LVDs3.2 (2.5-4.0cm)FS (%) 32.0 % LVEF (%)60.2 (>50%)LVEF (Parada's)54.71 % M-Mode DIMENSIONS Left Atrium (MM)2.98 (2.5-4.0cm)IVSd0.76 (0.7-1.1cm) Aortic Root3.15 (2.2-3.7cm)LVDd5.22 (4.0-5.6cm) Aortic Cusp Exc.2.15 (1.5-2.0cm)PWd0.87 (0.7-1.1cm) FS (%) 38 %LVDs3.22 (2.0-3.8cm) LVEF (%)68 (>50%) Mitral Valve MV E Xlxlagtx903.1cm/sE/A ratio0.0 TDI Lateral E' Peak V7.38cm/sMedial E' Peak V8.93cm/sE/Lateral E'14.0 E/Medial E'11.5 Tricuspid Valve TR Peak Njuywwne729lx/sTR Peak Gr.[id number] LEFT VENTRICLE The left ventricle is normal size. There is normal left ventricular wall thickness. Left ventricle systolic function is normal. The Ejection Fraction is 65-70%. There is normal LV segmental wall motion. The left ventricular diastolic function is normal. RIGHT VENTRICLE The right ventricle is normal size. There is normal right ventricular wall thickness. The right ventricular systolic function is normal. ATRIA The left atrium size is normal. The right atrium size is normal. The interatrial septum is intact with no evidence for an atrial septal defect. AORTIC VALVE The aortic valve is normal in structure. No aortic regurgitation is present. There is no aortic valvular stenosis. There is no aortic valvular vegetation. MITRAL VALVE The mitral valve is normal in structure. There is no evidence of mitral valve prolapse. There is no mitral valve stenosis. Mitral regurgitation is mild. TRICUSPID VALVE The tricuspid valve is normal in structure. There is mild tricuspid regurgitation. Right ventricular systolic pressure is estimated at 30-40 mmHg. There is mild pulmonary hypertension. PULMONIC VALVE The pulmonic valve is not well visualized. There is no pulmonic valvular regurgitation. GREAT VESSELS The aortic root is normal in size. PERICARDIAL EFFUSION There is no sigificant pericardial effusion. <Conclusion> Left ventricle systolic function is normal. The Ejection Fraction is 65-70%. No aortic regurgitation is present. Mitral regurgitation is mild. There is mild tricuspid regurgitation. There is mild pulmonary hypertension. There is no pulmonic valvular regurgitation.
[2018-03-28] MEDS: MethylPREDNISolone 40 mg Vial IVP SCH (13:25)
[2018-03-28] MEDS: Potassium Chloride 10 mEq ER Tab PO SCH (13:26)
[2018-03-28] MEDS: Pantoprazole 40 mg EC Tab PO SCH (13:26)
--- NOTE | 2018-03-28 14:31 | CP.PCM.PN ---
Subjective - Date & Time of Evaluation Date of Evaluation: 03/28/18 Time of Evaluation: 09:00 - Subjective Subjective: chart review Vitals controlled afebrile in ICU EJ noted on anti platelets patient seen feeding self, no chest pain no other complaints episodically becomes panicky, supportive discussion EJ and further cardio evaluation discussed Breathing much better steroid tapering Objective - Vital Signs/Intake and Output Vital Signs (last 24 hours): Temp Pulse Resp BP Pulse Ox 98.3 F 94 H 18 157/98 H 100 03/28/18 12:00 03/28/18 13:10 03/28/18 12:10 03/28/18 13:10 03/28/18 13:10 Intake and Output: 03/28/18 03/28/18 06:59 18:59 Intake Total 55 1466.9 Output Total 400 1200 Balance -345 266.9 - Medications Medications: Current Medications Albuterol/Ipratropium (Duoneb 3 Mg/0.5 Mg (3 Ml) Ud) 3 ml INH RQ4 [facility] Last Admin: 03/28/18 12:17 Dose: 3 ml Heparin Sodium/Sodium Chloride (Heparin 88346 Units/250ml 1/2 Normal Saline) 25,000 units in 250 mls @ 5.013 mls/hr IV .Q24H PRN; Protocol PRN Reason: PROTOCOL Last Titration: 03/28/18 07:00 Dose: 16 units/kg/hr, 6.684 mls/hr Piperacillin Sod/Tazobactam Sod (Zosyn 2.25 Gm Iv Premix) 2.25 gm in 50 mls @ 1 00 mls/hr IVPB Q6H [facility]; Protocol Last Admin: 03/28/18 13:00 Dose: 100 mls/hr Influenza Virus Vaccine (Flucelvax Quad 0055-0175 Syr) 60 mcg IM .ONCE ONE Stop: 03/30/18 10:01 Losartan Potassium (Cozaar) 100 mg PO DAILY [facility] Last Admin: 03/28/18 13:26 Dose: 100 mg Methylprednisolone (Solu-Medrol) 40 mg IVP Q12H [facility] Last Admin: 03/28/18 13:25 Dose: 40 mg Pantoprazole Sodium (Protonix Ec Tab) 40 mg PO DAILY [facility] Last Admin: 03/28/18 13:26 Dose: 40 mg Pneumococcal Polyvalent Vaccine (Pneumovax 23 Vaccine) 0.5 ml IM .ONCE ONE Stop: 03/30/18 10:01 Potassium Chloride (Klor-Con 10) 10 meq PO BRK [facility] Stop: 03/28/18 23:59 Last Admin: 03/28/18 13:26 Dose: 10 meq Rosuvastatin Calcium (Crestor) 5 mg PO HS [facility] Last Admin: 03/27/18 23:06 Dose: 5 mg - Labs Labs: 03/28/18 04:03 03/28/18 04:03 PT 10.5 SECONDS (9.7-12.2) 03/27/18 12:26 INR 1.0 03/27/18 12:26 APTT 29 SECONDS (21-34) D 03/28/18 06:16 - Constitutional Appears: Non-toxic, No Acute Distress - Head Exam Head Exam: ATRAUMATIC, NORMOCEPHALIC - Eye Exam Eye Exam: Normal appearance. absent: Nystagmus - ENT Exam ENT Exam: Mucous Membranes Moist - Neck Exam Neck Exam: Full ROM. absent: Tenderness - Respiratory Exam Respiratory Exam: Decreased Breath Sounds, Clear to Ausculation Bilateral, NORMAL BREATHING PATTERN - Cardiovascular Exam Cardiovascular Exam: REGULAR RHYTHM - GI/Abdominal Exam GI & Abdominal Exam: Soft, Normal Bowel Sounds. absent: Tenderness - Extremities Exam Extremities Exam: Full ROM. absent: Pedal Edema - Neurological Exam Neurological Exam: Alert, Awake, Normal Gait, Oriented x3 - Psychiatric Exam Psychiatric exam: Normal Affect, Normal Mood - Skin Skin Exam: Intact, Normal Color Assessment and Plan - Assessment and Plan (Free Text) Assessment: Patient with History of hypertension and anxiety admitted for COPD exacerbation- improving steroid to taper on antibiotic respiratory treatments with NSTEMI -currently n ICU heparin drip/ antiplatelets, for further cardiac evaluation discussion with patient GI prophylaxis Debilty- for PT
--- NOTE | 2018-03-28 16:35 | CP.PCM.PN ---
Subjective - Date & Time of Evaluation Date of Evaluation: 03/28/18 Time of Evaluation: 15:00 - Subjective Subjective: Patient seen and examined Lying comfortably in no distress On IV heparin Denies any chest pain Breathing better Objective - Vital Signs/Intake and Output Vital Signs (last 24 hours): Temp Pulse Resp BP Pulse Ox 98.3 F 94 H 18 157/98 H 100 03/28/18 12:00 03/28/18 13:10 03/28/18 12:10 03/28/18 13:10 03/28/18 13:10 Intake and Output: 03/28/18 03/28/18 06:59 18:59 Intake Total 55 1466.9 Output Total 400 1200 Balance -345 266.9 - Medications Medications: Current Medications Albuterol/Ipratropium (Duoneb 3 Mg/0.5 Mg (3 Ml) Ud) 3 ml INH RQ4 [facility] Last Admin: 03/28/18 16:11 Dose: 3 ml Heparin Sodium/Sodium Chloride (Heparin 79652 Units/250ml 1/2 Normal Saline) 25,000 units in 250 mls @ 5.013 mls/hr IV .Q24H PRN; Protocol PRN Reason: PROTOCOL Last Titration: 03/28/18 07:00 Dose: 16 units/kg/hr, 6.684 mls/hr Piperacillin Sod/Tazobactam Sod (Zosyn 2.25 Gm Iv Premix) 2.25 gm in 50 mls @ 100 mls/hr IVPB Q6H [facility]; Protocol Last Admin: 03/28/18 13:00 Dose: 100 mls/hr Influenza Virus Vaccine (Flucelvax Quad 3647-2862 Syr) 60 mcg IM .ONCE ONE Stop: 03/30/18 10:01 Losartan Potassium (Cozaar) 100 mg PO DAILY [facility] Last Admin: 03/28/18 13:26 Dose: 100 mg Methylprednisolone (Solu-Medrol) 40 mg IVP Q12H [facility] Last Admin: 03/28/18 13:25 Dose: 40 mg Pantoprazole Sodium (Protonix Ec Tab) 40 mg PO DAILY [facility] Last Admin: 03/28/18 13:26 Dose: 40 mg Pneumococcal Polyvalent Vaccine (Pneumovax 23 Vaccine) 0.5 ml IM .ONCE ONE Stop: 03/30/18 10:01 Potassium Chloride (Klor-Con 10) 10 meq PO BRK [facility] Stop: 03/28/18 23:59 Last Admin: 03/28/18 13:26 Dose: 10 meq Rosuvastatin Calcium (Crestor) 5 mg PO HS [facility] Last Admin: 03/27/18 23:06 Dose: 5 mg - Labs Labs: 03/28/18 04:03 03/28/18 04:03 PT 10.5 SECONDS (9.7-12.2) 03/27/18 12:26 INR 1.0 03/27/18 12:26 APTT 29 SECONDS (21-34) D 03/28/18 06:16 - Head Exam Head Exam: ATRAUMATIC, NORMOCEPHALIC - ENT Exam ENT Exam: Mucous Membranes Moist - Neck Exam Neck Exam: Normal Inspection - Respiratory Exam Respiratory Exam: Decreased Breath Sounds - Cardiovascular Exam Cardiovascular Exam: REGULAR RHYTHM - GI/Abdominal Exam GI & Abdominal Exam: Soft, Normal Bowel Sounds Assessment and Plan (1) COPD exacerbation Assessment & Plan: Continue present treatment Continue antibiotics Cardiac cath on Friday Continue heparin Echocardiogram Status: Acute (2) Respiratory distress, acute Status: Acute
[2018-03-29] MEDS: Piperacill/Tazo 2.25gm in Dex 2.25 GM/50 ML BAG IVPB SCH ×4 (00:54→18:14)
[2018-03-29] MEDS: MethylPREDNISolone 40 mg Vial IVP SCH ×2 (00:57→12:37)
[2018-03-29] MEDS: Albuterol-Ipratrop 3 mg / 0.5 (3 ml) UD INH SCH ×6 (03:08→23:45)
[2018-03-29 05:58] LABS: BASO % 0.2 % (0.0-2.0); EOS % 0.1 % (0.0-4.0); HEMOGLOBIN 13.2 g/dL (11.0-16.0); LYMPH # 0.4 K/uL (1.0-4.3); LYMPH % 2.7 % (20.0-40.0); MEAN CELL VOLUME 94.4 fL (81.0-99.0); MEAN CORPUSCULAR HEMOGLOBIN 30.6 pg (27.0-31.0); MEAN CORPUSCULAR HGB CONC 32.4 g/dL (33.0-37.0); MEAN PLATELET VOLUME 8.6 fL (7.2-11.7); MONO # 0.4 K/uL (0.0-0.8); MONO % 3.1 % (0.0-10.0); NEUT # 13.2 K/uL (1.8-7.0); NEUT % 93.9 % (50.0-75.0); PLATELET COUNT 358 K/uL (130-400); RED CELL DISTRIBUTION WIDTH 13.5 % (11.5-14.5)
[2018-03-29 06:15] LABS: ALB/GLOB RATIO 1.1 (1.0-2.1); ALBUMIN 4.1 g/dL (3.5-5.0); ALT/SGPT 14 U/L (9-52); AST/SGOT 25 U/L (14-36); BLOOD UREA NITROGEN 24 mg/dL (7-17); CALCIUM 9.4 mg/dl (8.6-10.4); GFR NON-AFRICAN AMERICAN > 60
[2018-03-29] MEDS: Heparin25000 units/250ml 1/2NS 25,000 UNITS/250 ML BAG IV PRN ×2 (06:26→06:30)
[2018-03-29 09:23] LABS: BANDS 7 % (0-2); LYMPHOCYTE 3 % (20-40); MONOCYTE 4 % (0-10); NEUTROPHIL 86 % (50-75); PLATELET ESTIMATE NORMAL (NORMAL); TOTAL CELLS COUNTED 100
[2018-03-29 09:24] LABS: ANISOCYTOSIS SLIGHT
[2018-03-29 09:25] LABS: HYPOCHROMIC SLIGHT; LARGE PLATELETS PRESENT; POLYCHROMIC SLIGHT
[2018-03-29] MEDS: Pantoprazole 40 mg EC Tab PO SCH (10:18)
--- NOTE | 2018-03-29 11:07 | CP.PCM.PN ---
Subjective - Date & Time of Evaluation Date of Evaluation: 03/29/18 Time of Evaluation: 10:59 - Subjective Subjective: Pulmonary Follow up, Covering Dr Colon The Patient was seen and examined at the bedside, Medical records reviewed, and management issues were discussed and formulated with the house staff. Events reviewed Mrs Gonzalez is a 67 year old female with PMHx of HTN and anxiety Who presented to the ER on 03/25 with worsening SOB associated with wheezes. In the ER she was In Acute Distress, and CXR done suggested COPD Admitted with Pneumonia COPD exacerbation Patient noted improvement in SOB with, Antibiotics duonebs and BiPAP. Today she is resting comfortably in chair, in no apparent distress. Breathing comfortably Less SOB Denies fever/chills, cough, chest pain, palpitations, N/vomiting, or hemoptysis. Afebrile. Adequate saturations 100-96% on RA Objective - Vital Signs/Intake and Output Vital Signs (last 24 hours): Temp Pulse Resp BP Pulse Ox 98.3 F 98 H 14 154/103 H 100 03/29/18 08:00 03/29/18 08:04 03/29/18 08:04 03/29/18 08:04 03/29/18 08:04 Intake and Output: 03/29/18 03/29/18 06:59 18:59 Intake Total 810.4 13.4 Output Total 800 Balance 10.4 13.4 - Medications Medications: Current Medications Albuterol/Ipratropium (Duoneb 3 Mg/0.5 Mg (3 Ml) Ud) 3 ml INH RQ4 [facility] Last Admin: 03/29/18 07:55 Dose: 3 ml Amlodipine Besylate (Norvasc) 5 mg PO DAILY [facility] Aspirin (Ecotrin) 81 mg PO DAILY [facility] Last Admin: 03/29/18 10:18 Dose: 81 mg Clopidogrel Bisulfate (Plavix) 75 mg PO DAILY [facility] Last Admin: 03/29/18 10:18 Dose: 75 mg Heparin Sodium/Sodium Chloride (Heparin 40242 Units/250ml 1/2 Normal Saline) 25,000 units in 250 mls @ 5.013 mls/hr IV .Q24H PRN; Protocol PRN Reason: PROTOCOL Last Admin: 03/29/18 06:30 Dose: 16 units/kg/hr, 6.684 mls/hr Piperacillin Sod/Tazobactam Sod (Zosyn 2.25 Gm Iv Premix) 2.25 gm in 50 mls @ 100 mls/hr IVPB Q6H [facility]; Protocol Last Admin: 03/29/18 06:22 Dose: 100 mls/hr Influenza Virus Vaccine (Flucelvax Quad 2051-3133 Syr) 60 mcg IM .ONCE ONE Stop: 03/30/18 10:01 Losartan Potassium (Cozaar) 100 mg PO DAILY [facility] Last Admin: 03/29/18 10:18 Dose: 100 mg Methylprednisolone (Solu-Medrol) 40 mg IVP Q12H [facility] Last Admin: 03/29/18 00:57 Dose: 40 mg Pantoprazole Sodium (Protonix Ec Tab) 40 mg PO DAILY [facility] Last Admin: 03/29/18 10:18 Dose: 40 mg Pneumococcal Polyvalent Vaccine (Pneumovax 23 Vaccine) 0.5 ml IM .ONCE ONE Stop: 03/30/18 10:01 Rosuvastatin Calcium (Crestor) 5 mg PO HS [facility] Last Admin: 03/28/18 21:57 Dose: 5 mg - Labs Labs: 03/29/18 05:50 03/29/18 05:50 PT 10.5 SECONDS (9.7-12.2) 03/27/18 12:26 INR 1.0 03/27/18 12:26 APTT 56 SECONDS (21-34) H 03/29/18 10:27 - Constitutional Appears: Well, Non-toxic - Head Exam Head Exam: ATRAUMATIC, NORMAL INSPECTION - Eye Exam Eye Exam: absent: Conjunctival injection - Neck Exam Neck Exam: Full ROM - Respiratory Exam Respiratory Exam: Decreased Breath Sounds, Prolonged Expiratory Phase. absent: Accessory Muscle Use, Chest Wall Tenderness, Clear to Ausculation Bilateral, Rales, Rhonchi, Wheezes, Respiratory Distress - Cardiovascular Exam Cardiovascular Exam: REGULAR RHYTHM, RRR, +S1, +S2. absent: Bradycardia, Tachycardia, JVD - Back Exam Back Exam: absent: CVA tenderness (L), CVA tenderness (R) - Neurological Exam Neurological Exam: Alert, Awake, CN II-XII Intact, Normal Gait, Oriented x3. absent: Motor Sensory Deficit Assessment and Plan (1) COPD exacerbation Status: Acute (2) Dyspnea Status: Acute (3) Respiratory distress, acute Status: Acute - Assessment and Plan (Free Text) Plan: Continue present treatment Continue antibiotics x7 days Nebulizer treatments Continue steroid to taper, Currently on Solu-Medrol 40 mg IVP Q12H Cardiac cath on Friday Continue heparin OOB to chair BIPAP as needed
--- NOTE | 2018-03-29 14:43 | CP.PCM.PN ---
Subjective - Date & Time of Evaluation Date of Evaluation: 03/29/18 Time of Evaluation: 10:30 - Subjective Subjective: chart review Vitals =BP noted on the high side patient is in iCU on heparin drip no unusual event Patient seen out of bed, happy conversant , discussion of condition and plan denies any complaints discussion with nurse in charge Objective - Vital Signs/Intake and Output Vital Signs (last 24 hours): Temp Pulse Resp BP Pulse Ox 98 F 92 H 20 157/88 H 99 03/29/18 14:06 03/29/18 14:06 03/29/18 14:06 03/29/18 14:06 03/29/18 14:06 Intake and Output: 03/29/18 03/29/18 06:59 18:59 Intake Total 810.4 256.9 Output Total 800 210 Balance 10.4 46.9 - Medications Medications: Current Medications Albuterol/Ipratropium (Duoneb 3 Mg/0.5 Mg (3 Ml) Ud) 3 ml INH RQ4 [facility] Last Admin: 03/29/18 13:08 Dose: 3 ml Amlodipine Besylate (Norvasc) 5 mg PO DAILY [facility] Last Admin: 03/29/18 11:09 Dose: 5 mg Aspirin (Ecotrin) 81 mg PO DAILY [facility] Last Admin: 03/29/18 10:18 Dose: 81 mg Clopidogrel Bisulfate (Plavix) 75 mg PO DAILY [facility] Last Admin: 03/29/18 10:18 Dose: 75 mg Heparin Sodium/Sodium Chloride (Heparin 80449 Units/250ml 1/2 Normal Saline) 25,000 units in 250 mls @ 5.013 mls/hr IV .Q24H PRN; Protocol PRN Reason: PROTOCOL Last Admin: 03/29/18 06:30 Dose: 16 units/kg/hr, 6.684 mls/hr Piperacillin Sod/Tazobactam Sod (Zosyn 2.25 Gm Iv Premix) 2.25 gm in 50 mls @ 100 mls/hr IVPB Q6H [facility]; Protocol Last Admin: 03/29/18 12:37 Dose: 100 mls/hr Influenza Virus Vaccine (Flucelvax Quad 9131-8828 Syr) 60 mcg IM .ONCE ONE Stop: 03/30/18 10:01 Losartan Potassium (Cozaar) 100 mg PO DAILY [facility] Last Admin: 03/29/18 10:18 Dose: 100 mg Methylprednisolone (Solu-Medrol) 40 mg IVP Q12H [facility] Last Admin: 03/29/18 12:37 Dose: 40 mg Pantoprazole Sodium (Protonix Ec Tab) 40 mg PO DAILY [facility] Last Admin: 03/29/18 10:18 Dose: 40 mg Pneumococcal Polyvalent Vaccine (Pneumovax 23 Vaccine) 0.5 ml IM .ONCE ONE Stop: 03/30/18 10:01 Rosuvastatin Calcium (Crestor) 5 mg PO HS [facility] Last Admin: 03/28/18 21:57 Dose: 5 mg - Labs Labs: 03/29/18 05:50 03/29/18 05:50 PT 10.5 SECONDS (9.7-12.2) 03/27/18 12:26 INR 1.0 03/27/18 12:26 APTT 56 SECONDS (21-34) H 03/29/18 10:27 - Constitutional Appears: Non-toxic, No Acute Distress - Head Exam Head Exam: ATRAUMATIC, NORMOCEPHALIC - Eye Exam Eye Exam: Normal appearance - ENT Exam ENT Exam: Mucous Membranes Moist - Neck Exam Neck Exam: Full ROM. absent: Tenderness - Respiratory Exam Respiratory Exam: Decreased Breath Sounds (with slight congestion), NORMAL BREATHING PATTERN - Cardiovascular Exam Cardiovascular Exam: REGULAR RHYTHM - GI/Abdominal Exam GI & Abdominal Exam: Soft, Normal Bowel Sounds. absent: Tenderness - Extremities Exam Extremities Exam: Full ROM. absent: Pedal Edema - Neurological Exam Neurological Exam: Alert, Awake, Normal Gait, Oriented x3 - Psychiatric Exam Psychiatric exam: Normal Affect, Normal Mood - Skin Skin Exam: Intact, Normal Color Assessment and Plan - Assessment and Plan (Free Text) Assessment: Patient admitted for cOPD- improving- on tapering steroid Hypertension- uncontrolled, need to adjust meds /dosages NSTEMI- for cardiac cath tomorrow,is asymptomatic GI prophyaxis Patient aware of condition and further cardiac plan
--- NOTE | 2018-03-29 23:19 | CP.PCM.PN ---
Subjective - Date & Time of Evaluation Date of Evaluation: 03/29/18 Time of Evaluation: 08:15 - Subjective Subjective: Patient seen and evaluated Denies chest pain dyspnea For Cath in am PMHX: HTN, anxiety, cholesterol Shx: denies All: NKDA sochx: denies smoking, alcohol or drug use Fhx: denies Review of Systems - Review of Systems All systems: reviewed and no additional remarkable complaints except Review of Systems: as per HPI Physical Exam - Constitutional Appears: Non-toxic, No Acute Distress - Head Exam Head Exam: ATRAUMATIC, NORMAL INSPECTION, NORMOCEPHALIC - Eye Exam Eye Exam: EOMI, Normal appearance - ENT Exam ENT Exam: Mucous Membranes Moist, Normal Exam - Neck Exam Neck exam: Positive for: Normal Inspection - Respiratory Exam Respiratory Exam: Clear to Auscultation Bilateral, NORMAL BREATHING PATTERN. absent: Rales, Rhonchi, Wheezes - Cardiovascular Exam Cardiovascular Exam: Tachycardia, REGULAR RHYTHM, +S1, +S2 - GI/Abdominal Exam GI & Abdominal Exam: Normal Bowel Sounds, Soft. absent: Distended, Tenderness - Extremities Exam Extremities exam: Positive for: normal inspection - Back Exam Back exam: NORMAL INSPECTION - Neurological Exam Neurological exam: Alert, CN II-XII Intact, Oriented x3 - Psychiatric Exam Psychiatric exam: Normal Affect, Normal Mood - Skin Skin Exam: Dry, Intact, Normal Color, Warm Assessment and Plan Non STEMI For Cath in am Objective - Vital Signs/Intake and Output Vital Signs (last 24 hours): Temp Pulse Resp BP Pulse Ox 97.9 F 76 18 153/88 H 100 03/29/18 15:00 03/29/18 22:22 03/29/18 15:00 03/29/18 22:05 03/29/18 15:00 Intake and Output: 03/29/18 03/30/18 18:59 06:59 Intake Total 256.9 Output Total 210 Balance 46.9 - Medications Medications: Current Medications Albuterol/Ipratropium (Duoneb 3 Mg/0.5 Mg (3 Ml) Ud) 3 ml INH RQ4 [facility] Last Admin: 03/29/18 19:18 Dose: 3 ml Amlodipine Besylate (Norvasc) 5 mg PO DAILY [facility] Last Admin: 03/29/18 11:09 Dose: 5 mg Aspirin (Ecotrin) 81 mg PO DAILY [facility] Last Admin: 03/29/18 10:18 Dose: 81 mg Clopidogrel Bisulfate (Plavix) 75 mg PO DAILY [facility] Last Admin: 03/29/18 10:18 Dose: 75 mg Heparin Sodium/Sodium Chloride (Heparin 94884 Units/250ml 1/2 Normal Saline) 25,000 units in 250 mls @ 5.013 mls/hr IV .Q24H PRN; Protocol PRN Reason: PROTOCOL Last Admin: 03/29/18 06:30 Dose: 16 units/kg/hr, 6.684 mls/hr Piperacillin Sod/Tazobactam Sod (Zosyn 2.25 Gm Iv Premix) 2.25 gm in 50 mls @ 100 mls/hr IVPB Q6H [facility]; Protocol Last Admin: 03/29/18 18:14 Dose: 100 mls/hr Influenza Virus Vaccine (Flucelvax Quad 2175-0700 Syr) 60 mcg IM .ONCE ONE Stop: 03/30/18 10:01 Losartan Potassium (Cozaar) 100 mg PO DAILY [facility] Last Admin: 03/29/18 10:18 Dose: 100 mg Methylprednisolone (Solu-Medrol) 40 mg IVP Q12H [facility] Last Admin: 03/29/18 12:37 Dose: 40 mg Pantoprazole Sodium (Protonix Ec Tab) 40 mg PO DAILY [facility] Last Admin: 03/29/18 10:18 Dose: 40 mg Pneumococcal Polyvalent Vaccine (Pneumovax 23 Vaccine) 0.5 ml IM .ONCE ONE Stop: 03/30/18 10:01 Rosuvastatin Calcium (Crestor) 5 mg PO HS [facility] Last Admin: 03/29/18 21:05 Dose: 5 mg - Labs Labs: 03/29/18 05:50 03/29/18 05:50 PT 10.5 SECONDS (9.7-12.2) 03/27/18 12:26 INR 1.0 03/27/18 12:26 APTT 56 SECONDS (21-34) H 03/29/18 10:27
[2018-03-30] MEDS: MethylPREDNISolone 40 mg Vial IVP SCH ×2 (00:30→11:45)
[2018-03-30] MEDS: Piperacill/Tazo 2.25gm in Dex 2.25 GM/50 ML BAG IVPB SCH ×4 (01:05→18:00)
[2018-03-30] MEDS: Albuterol-Ipratrop 3 mg / 0.5 (3 ml) UD INH SCH ×5 (03:20→19:40)
[2018-03-30 07:33] LABS: BASO % 0.1 % (0.0-2.0); EOS # 0.1 K/uL (0.0-0.7); EOS % 0.6 % (0.0-4.0); HEMOGLOBIN 11.6 g/dL (11.0-16.0); LYMPH # 0.4 K/uL (1.0-4.3); LYMPH % 2.9 % (20.0-40.0); MEAN CELL VOLUME 94.3 fL (81.0-99.0); MEAN CORPUSCULAR HEMOGLOBIN 30.7 pg (27.0-31.0); MEAN CORPUSCULAR HGB CONC 32.5 g/dL (33.0-37.0); MEAN PLATELET VOLUME 8.8 fL (7.2-11.7); MONO # 0.3 K/uL (0.0-0.8); MONO % 2.7 % (0.0-10.0); NEUT # 11.8 K/uL (1.8-7.0); NEUT % 93.7 % (50.0-75.0); NRBC % 0.1 % (0.0-2.0); PLATELET COUNT 343 K/uL (130-400); RBC 3.78 Mil/uL (3.80-5.20); RED CELL DISTRIBUTION WIDTH 13.1 % (11.5-14.5); WHITE BLOOD COUNT 12.6 K/uL (4.8-10.8)
[2018-03-30 07:46] LABS: PROTHROMBIN TIME 10.5 SECONDS (9.7-12.2)
[2018-03-30 07:58] LABS: ALB/GLOB RATIO 1.2 (1.0-2.1); ALBUMIN 3.9 g/dL (3.5-5.0); ALT/SGPT 24 U/L (9-52); AST/SGOT 26 U/L (14-36); BLOOD UREA NITROGEN 22 mg/dL (7-17); CALCIUM 9.1 mg/dl (8.6-10.4); GFR NON-AFRICAN AMERICAN > 60
[2018-03-30] MEDS ORDERED: Iodixanol 320 MG/ML 100 ML BOTTLE IV ONE (08:49)
--- NOTE | 2018-03-30 08:54 | CP.PCM.PN ---
Subjective - Date & Time of Evaluation Date of Evaluation: 03/30/18 Time of Evaluation: 11:50 - Subjective Subjective: chart review BP- still on high side no unusual events overnight transferred to floor in cardiac Cath this AM Patient seen after the cardiac cath in bed , no complaint, hsband by bedside already aware of cath result and plan of PCI in [place] tomorrow no other complaints Objective - Vital Signs/Intake and Output Vital Signs (last 24 hours): Temp Pulse Resp BP Pulse Ox 98.4 F 73 20 160/88 H 100 03/30/18 06:30 03/30/18 06:30 03/30/18 06:30 03/30/18 06:30 03/30/18 00:55 - Medications Medications: Current Medications Albuterol/Ipratropium (Duoneb 3 Mg/0.5 Mg (3 Ml) Ud) 3 ml INH RQ4 [facility] Last Admin: 03/30/18 03:20 Dose: Not Given Amlodipine Besylate (Norvasc) 10 mg PO DAILY [facility] Aspirin (Ecotrin) 81 mg PO DAILY [facility] Last Admin: 03/29/18 10:18 Dose: 81 mg Clopidogrel Bisulfate (Plavix) 75 mg PO DAILY [facility] Last Admin: 03/29/18 10:18 Dose: 75 mg Piperacillin Sod/Tazobactam Sod (Zosyn 2.25 Gm Iv Premix) 2.25 gm in 50 mls @ 100 mls/hr IVPB Q6H [facility]; Protocol Last Admin: 03/30/18 06:30 Dose: 100 mls/hr Influenza Virus Vaccine (Flucelvax Quad 5792-8431 Syr) 60 mcg IM .ONCE ONE Stop: 03/30/18 10:01 Losartan Potassium (Cozaar) 100 mg PO DAILY [facility] Last Admin: 03/29/18 10:18 Dose: 100 mg Methylprednisolone (Solu-Medrol) 40 mg IVP Q12H [facility] Last Admin: 03/30/18 00:30 Dose: 40 mg Pantoprazole Sodium (Protonix Ec Tab) 40 mg PO DAILY [facility] Last Admin: 03/29/18 10:18 Dose: 40 mg Pneumococcal Polyvalent Vaccine (Pneumovax 23 Vaccine) 0.5 ml IM .ONCE ONE Stop: 03/30/18 10:01 Rosuvastatin Calcium (Crestor) 5 mg PO [facility] Last Admin: 03/29/18 21:05 Dose: 5 mg - Labs Labs: 03/30/18 07:12 03/30/18 07:12 PT 10.5 SECONDS (9.7-12.2) 03/30/18 07:12 INR 1.0 03/30/18 07:12 APTT 26 SECONDS (21-34) D 03/30/18 07:12 - Constitutional Appears: Non-toxic, No Acute Distress - Head Exam Head Exam: ATRAUMATIC, NORMOCEPHALIC - Eye Exam Eye Exam: Normal appearance - ENT Exam ENT Exam: Mucous Membranes Moist - Neck Exam Neck Exam: Full ROM - Respiratory Exam Respiratory Exam: Clear to Ausculation Bilateral, NORMAL BREATHING PATTERN - Cardiovascular Exam Cardiovascular Exam: REGULAR RHYTHM - GI/Abdominal Exam GI & Abdominal Exam: Soft, Normal Bowel Sounds. absent: Tenderness (post cath inguinal bandaged ) - Extremities Exam Extremities Exam: Full ROM, Normal Inspection. absent: Pedal Edema - Back Exam Back Exam: absent: Full ROM - Neurological Exam Neurological Exam: Alert, Awake, Normal Gait, Oriented x3 - Psychiatric Exam Psychiatric exam: Normal Affect, Normal Mood - Skin Skin Exam: Intact, Normal Color Assessment and Plan - Assessment and Plan (Free Text) Assessment: Patiient with CAD_ post cardiac cath today- further cardiac plan for PCI as per cardio notes on statin on Plavix Hypokalemia- resolved COPD Exacerbation- improving tapering steroid Hypertension- not on goal with adjusting BP meds continue GI prophylaxis High WBC , secondary to steroid- - improving with steroid tapering patient aware of further plan
[2018-03-30] MEDS ORDERED: Midazolam 2 MG/2 ML VIAL ONE (09:08)
[2018-03-30 09:18] LABS: ANISOCYTOSIS SLIGHT; BANDS 1 % (0-2); GIANT PLATELETS PRESENT; HYPOCHROMIC SLIGHT; LYMPHOCYTE 3 % (20-40); MONOCYTE 3 % (0-10); NEUTROPHIL 93 % (50-75); PLATELET ESTIMATE NORMAL (NORMAL); POIKILOCYTOSIS SLIGHT; TARGET CELLS SLIGHT; TOTAL CELLS COUNTED 100
[2018-03-30] MEDS ORDERED: Influenza Vaccine 60 mcg/0.5 mL SYR (4YR UP) IM ONE (10:00)
[2018-03-30] MEDS ORDERED: Pneumococcal 23-Valent Vaccine IM ONE (10:00)
--- NOTE | 2018-03-30 10:13 | CP.PCM.PN ---
Subjective - Date & Time of Evaluation Date of Evaluation: 03/30/18 Time of Evaluation: 10:11 - Subjective Subjective: Patient s/p Cardiac cath 1. L Main: patent 2. LAD/Diags: Calcific artery, Distal 40% non obstructive lesion 3. L Cx/OM: Proximal l Cx 30% stenosis 4. RCA: Dominant and proximal 80% stenosis 5. LV: Anterior and apical hypokinesis, EF 30% For PCI of RCA in [place] tomorrow Objective - Vital Signs/Intake and Output Vital Signs (last 24 hours): Temp Pulse Resp BP Pulse Ox 98.4 F 73 20 160/88 H 100 03/30/18 06:30 03/30/18 06:30 03/30/18 06:30 03/30/18 06:30 03/30/18 00:55 - Medications Medications: Current Medications Albuterol/Ipratropium (Duoneb 3 Mg/0.5 Mg (3 Ml) Ud) 3 ml INH RQ4 [facility] Last Admin: 03/30/18 07:25 Dose: Not Given Amlodipine Besylate (Norvasc) 10 mg PO DAILY [facility] Aspirin (Ecotrin) 81 mg PO DAILY [facility] Last Admin: 03/29/18 10:18 Dose: 81 mg Clopidogrel Bisulfate (Plavix) 75 mg PO DAILY [facility] Last Admin: 03/29/18 10:18 Dose: 75 mg Heparin Sodium (Porcine) (Heparin) 5,000 units SC BID [facility] Piperacillin Sod/Tazobactam Sod (Zosyn 2.25 Gm Iv Premix) 2.25 gm in 50 mls @ 100 mls/hr IVPB Q6H [facility]; Protocol Last Admin: 03/30/18 06:30 Dose: 100 mls/hr Losartan Potassium (Cozaar) 100 mg PO DAILY [facility] Last Admin: 03/29/18 10:18 Dose: 100 mg Methylprednisolone (Solu-Medrol) 40 mg IVP Q12H [facility] Last Admin: 03/30/18 00:30 Dose: 40 mg Pantoprazole Sodium (Protonix Ec Tab) 40 mg PO DAILY [facility] Last Admin: 03/29/18 10:18 Dose: 40 mg Rosuvastatin Calcium (Crestor) 5 mg PO HS [facility] Last Admin: 03/29/18 21:05 Dose: 5 mg - Labs Labs: 03/30/18 07:12 03/30/18 07:12 PT 10.5 SECONDS (9.7-12.2) 03/30/18 07:12 INR 1.0 03/30/18 07:12 APTT 26 SECONDS (21-34) D 03/30/18 07:12
[2018-03-30] MEDS: Pantoprazole 40 mg EC Tab PO SCH (11:40)
--- NOTE | 2018-03-30 12:08 | CARD ---
APPROVED REPORT Date of service: 03/27/2018 EKG Measurement Heart [id number] <Conclusion> Normal sinus rhythm Septal infarct, age undetermined ST & T wave abnormality, consider inferior ischemia ST & T wave abnormality, consider anterolateral ischemia Prolonged QT Abnormal ECG
--- NOTE | 2018-03-30 17:23 | CP.PCM.PN ---
Subjective - Date & Time of Evaluation Date of Evaluation: 03/30/18 Time of Evaluation: 10:00 - Subjective Subjective: Patient seen and examined at bedside. Is s/p cardiac cath with Dr. Eldridge. Tolerated procedure well and has no complaints. Tolerating steroid taper. Denies and chest pain, SOB, dizziness, lightheadedness. Exam: General: No acute distress Heart: RRR, S1, S2 Lungs: CTA b/l Abdomen: soft nontender nondistended A&P 1) CAD: 80% RCA occlusion found on diagnostic heart cath. Likely etiology of patient's episodic SOB. Plan is for PCI of RCA tomorrow at [place]. Will reevaluate s/p procedure. Objective - Vital Signs/Intake and Output Vital Signs (last 24 hours): Temp Pulse Resp BP Pulse Ox 98.2 F 70 20 143/71 98 03/30/18 16:52 03/30/18 16:52 03/30/18 16:52 03/30/18 16:52 03/30/18 11:46 - Medications Medications: Current Medications Albuterol/Ipratropium (Duoneb 3 Mg/0.5 Mg (3 Ml) Ud) 3 ml INH RQ4 [facility] Last Admin: 03/30/18 15:16 Dose: Not Given Amlodipine Besylate (Norvasc) 10 mg PO DAILY [facility] Last Admin: 03/30/18 11:40 Dose: 10 mg Aspirin (Ecotrin) 81 mg PO DAILY [facility] Last Admin: 03/30/18 11:41 Dose: 81 mg Clopidogrel Bisulfate (Plavix) 75 mg PO DAILY [facility] Last Admin: 03/30/18 11:41 Dose: 75 mg Heparin Sodium (Porcine) (Heparin) 5,000 units SC BID [facility] Piperacillin Sod/Tazobactam Sod (Zosyn 2.25 Gm Iv Premix) 2.25 gm in 50 mls @ 100 mls/hr IVPB Q6H [facility]; Protocol Last Admin: 03/30/18 13:06 Dose: 100 mls/hr Influenza Virus Vaccine (Flucelvax Quad 0171-7602 Syr) 60 mcg IM .ONCE ONE Stop: 04/02/18 10:01 Losartan Potassium (Cozaar) 100 mg PO DAILY [facility] Last Admin: 03/30/18 11:41 Dose: 100 mg Pantoprazole Sodium (Protonix Ec Tab) 40 mg PO DAILY [facility] Last Admin: 03/30/18 11:40 Dose: 40 mg Pneumococcal Polyvalent Vaccine (Pneumovax 23 Vaccine) 0.5 ml IM .ONCE ONE Stop: 04/02/18 10:01 Prednisone (Prednisone Tab) 10 mg PO DAILY [facility] Stop: 04/01/18 23:59 Rosuvastatin Calcium (Crestor) 5 mg PO HS [facility] Last Admin: 03/29/18 21:05 Dose: 5 mg - Labs Labs: 03/30/18 07:12 03/30/18 07:12 PT 10.5 SECONDS (9.7-12.2) 03/30/18 07:12 INR 1.0 03/30/18 07:12 APTT 26 SECONDS (21-34) D 03/30/18 07:12 Assessment and Plan (1) COPD exacerbation Status: Acute (2) Respiratory distress, acute Status: Acute
[2018-03-31] MEDS: Albuterol-Ipratrop 3 mg / 0.5 (3 ml) UD INH SCH ×2 (00:56→22:56)
[2018-03-31] MEDS: Piperacill/Tazo 2.25gm in Dex 2.25 GM/50 ML BAG IVPB SCH ×4 (05:52→19:22)
[2018-03-31 08:36] LABS: EOS # 1.3 K/uL (0.0-0.7); EOS % 8.3 % (0.0-4.0); HEMOGLOBIN 12.1 g/dL (11.0-16.0); LYMPH # 1.6 K/uL (1.0-4.3); LYMPH % 9.7 % (20.0-40.0); MEAN CELL VOLUME 94.4 fL (81.0-99.0); MEAN CORPUSCULAR HEMOGLOBIN 30.6 pg (27.0-31.0); MEAN CORPUSCULAR HGB CONC 32.4 g/dL (33.0-37.0); MEAN PLATELET VOLUME 8.9 fL (7.2-11.7); MONO # 1.6 K/uL (0.0-0.8); MONO % 9.9 % (0.0-10.0); NEUT # 11.6 K/uL (1.8-7.0); NEUT % 72.1 % (50.0-75.0); PLATELET COUNT 335 K/uL (130-400); RBC 3.97 Mil/uL (3.80-5.20); RED CELL DISTRIBUTION WIDTH 13.5 % (11.5-14.5)
[2018-03-31 08:53] LABS: PROTHROMBIN TIME 10.4 SECONDS (9.7-12.2)
[2018-03-31 09:00] LABS: ALB/GLOB RATIO 1.2 (1.0-2.1); ALBUMIN 3.7 g/dL (3.5-5.0); CALCIUM 9.3 mg/dl (8.6-10.4)
[2018-03-31] MEDS: Pantoprazole 40 mg EC Tab PO SCH (09:10)
[2018-03-31 09:26] LABS: BANDS 1 % (0-2); EOSINOPHIL 8 % (0-4); LYMPHOCYTE 10 % (20-40); MONOCYTE 6 % (0-10); NEUTROPHIL 75 % (50-75); PLATELET ESTIMATE NORMAL (NORMAL); TOTAL CELLS COUNTED 100
--- NOTE | 2018-03-31 10:13 | CP.PCM.PN ---
Subjective - Date & Time of Evaluation Date of Evaluation: 03/31/18 Time of Evaluation: 22:17 - Subjective Subjective: chart review Vitals= BP- good level Plan of PCI this morning as per notes Labs-low potassium no unusual event overnight patient seen , in bed , came back from [place] had cardiac stent patient was calm and again- became excited but is somewhat disoriented she is pointing to her heart , no coughing Objective - Vital Signs/Intake and Output Vital Signs (last 24 hours): Temp Pulse Resp BP Pulse Ox 97.7 F 72 20 116/74 98 03/30/18 23:15 03/31/18 08:21 03/30/18 23:15 03/30/18 23:15 03/30/18 23:15 Intake and Output: 03/31/18 03/31/18 06:59 18:59 Intake Total 450 Balance 450 - Medications Medications: Current Medications Amlodipine Besylate (Norvasc) 10 mg PO DAILY [facility] Last Admin: 03/31/18 09:10 Dose: Not Given Aspirin (Ecotrin) 81 mg PO DAILY [facility] Last Admin: 03/31/18 09:06 Dose: 81 mg Clopidogrel Bisulfate (Plavix) 75 mg PO DAILY [facility] Last Admin: 03/31/18 09:06 Dose: 75 mg Heparin Sodium (Porcine) (Heparin) 5,000 units SC BID [facility]S [facility] Last Admin: 03/31/18 09:10 Dose: Not Given Piperacillin Sod/Tazobactam Sod (Zosyn 2.25 Gm Iv Premix) 2.25 gm in 50 mls @ 100 mls/hr IVPB Q6H [facility]; Protocol Last Admin: 03/31/18 09:54 Dose: 100 mls/hr Influenza Virus Vaccine (Flucelvax Quad 7158-2726 Syr) 60 mcg IM .ONCE ONE Stop: 04/02/18 10:01 Losartan Potassium (Cozaar) 100 mg PO DAILY [facility] Last Admin: 03/31/18 09:09 Dose: Not Given Pantoprazole Sodium (Protonix Ec Tab) 40 mg PO DAILY [facility] Last Admin: 03/31/18 09:10 Dose: Not Given Pneumococcal Polyvalent Vaccine (Pneumovax 23 Vaccine) 0.5 ml IM .ONCE ONE Stop: 04/02/18 10:01 Prednisone (Prednisone Tab) 10 mg PO DAILY [facility] B[facility]S [facility] Stop: 01/30/19 23:59 Last Admin: 03/31/18 09:10 Dose: Not Given Rosuvastatin Calcium (Crestor) 5 mg PO HS [facility] Last Admin: 03/30/18 21:25 Dose: Not Given - Labs Labs: 03/31/18 08:28 03/31/18 08:28 PT 10.4 SECONDS (9.7-12.2) 03/31/18 08:28 INR 1.0 03/31/18 08:28 APTT 26 SECONDS (21-34) 03/31/18 08:28 - Constitutional Appears: Non-toxic, No Acute Distress - Head Exam Head Exam: ATRAUMATIC, NORMOCEPHALIC - Eye Exam Eye Exam: Normal appearance - ENT Exam ENT Exam: Mucous Membranes Moist - Neck Exam Neck Exam: Full ROM - Respiratory Exam Respiratory Exam: NORMAL BREATHING PATTERN ( but sounds congested, no wheezing ) - Cardiovascular Exam Cardiovascular Exam: REGULAR RHYTHM - GI/Abdominal Exam GI & Abdominal Exam: Soft, Normal Bowel Sounds. absent: Tenderness - Extremities Exam Extremities Exam: absent: Pedal Edema, Tenderness - Back Exam Back Exam: absent: CVA tenderness (R) - Neurological Exam Neurological Exam: Alert, Awake, Oriented x3 (in bed ) - Psychiatric Exam Psychiatric exam: Normal Affect, Normal Mood - Skin Skin Exam: Intact, Normal Color Assessment and Plan - Assessment and Plan (Free Text) Assessment: Patient with Multivessel disease, s/p stent in [place] today, with COPD exacerbation- that has improved with tapering steroid Lungs now congested - will call for stat nebulizer, lasix and CXR and monitor Discussed with cardio and staff Hypertension- currently controlled Hypokalemia- supplementation GI prophylaxis
[2018-03-31] MEDS: Potassium Chloride 20 mEq ER Tab PO SCH (11:20)
--- NOTE | 2018-03-31 17:02 | CP.PCM.PN ---
Subjective - Date & Time of Evaluation Date of Evaluation: 03/31/18 - Subjective Subjective: Patient seen and examined at bedside. Is s/p PCI of the RCA. Patient tolerated procedure well and has no complaints at this time. States that SOB feels mildly improved. Denies any chest pain, dizziness, or palpitations. Exam: General: No acute distress Heart: RRR, S1, S2 Lungs: CTA b/l Abdomen: soft, nontender, nondistended A&P: Dyspnea: likely related to CAD. Patient stable in terms of pulmonary status. Continue current management. Objective - Vital Signs/Intake and Output Vital Signs (last 24 hours): Temp Pulse Resp BP Pulse Ox 98.1 F 76 18 137/84 98 03/31/18 07:00 03/31/18 11:37 03/31/18 07:00 03/31/18 07:00 03/31/18 11:37 Intake and Output: 03/31/18 03/31/18 06:59 18:59 Intake Total 450 Balance 450 - Medications Medications: Current Medications Amlodipine Besylate (Norvasc) 10 mg PO DAILY [facility] Last Admin: 03/31/18 09:10 Dose: Not Given Aspirin (Ecotrin) 81 mg PO DAILY [facility] Last Admin: 03/31/18 09:06 Dose: 81 mg Clopidogrel Bisulfate (Plavix) 75 mg PO DAILY [facility] Last Admin: 03/31/18 09:06 Dose: 75 mg Heparin Sodium (Porcine) (Heparin) 5,000 units SC BID [facility] Last Admin: 03/31/18 09:10 Dose: Not Given Piperacillin Sod/Tazobactam Sod (Zosyn 2.25 Gm Iv Premix) 2.25 gm in 50 mls @ 100 mls/hr IVPB Q6H [facility]; Protocol Last Admin: 03/31/18 13:36 Dose: Not Given Influenza Virus Vaccine (Flucelvax Quad 9877-8996 Syr) 60 mcg IM .ONCE ONE Stop: 04/02/18 10:01 Losartan Potassium (Cozaar) 100 mg PO DAILY [facility] Last Admin: 03/31/18 09:09 Dose: Not Given Pantoprazole Sodium (Protonix Ec Tab) 40 mg PO DAILY [facility] Last Admin: 03/31/18 09:10 Dose: Not Given Pneumococcal Polyvalent Vaccine (Pneumovax 23 Vaccine) 0.5 ml IM .ONCE ONE Stop: 04/02/18 10:01 Potassium Chloride (K-Dur 20 Meq Er Tab) 20 meq PO DAILY [facility] Stop: 04/02/18 10:46 Last Admin: 03/31/18 11:20 Dose: 20 meq Prednisone (Prednisone Tab) 10 mg PO DAILY [facility] Stop: 04/01/18 23:59 Last Admin: 03/31/18 09:10 Dose: Not Given Rosuvastatin Calcium (Crestor) 5 mg PO HS [facility] Last Admin: 03/30/18 21:25 Dose: Not Given - Labs Labs: 03/31/18 08:28 03/31/18 08:28 PT 10.4 SECONDS (9.7-12.2) 03/31/18 08:28 INR 1.0 03/31/18 08:28 APTT 26 SECONDS (21-34) 03/31/18 08:28 Assessment and Plan (1) COPD exacerbation Status: Acute (2) Respiratory distress, acute Status: Acute
[2018-04-01] MEDS: Piperacill/Tazo 2.25gm in Dex 2.25 GM/50 ML BAG IVPB SCH ×4 (02:00→19:30)
[2018-04-01] MEDS: Albuterol-Ipratrop 3 mg / 0.5 (3 ml) UD INH SCH ×5 (08:14→23:43)
--- NOTE | 2018-04-01 09:37 | CP.PCM.PN ---
Subjective - Date & Time of Evaluation Date of Evaluation: 04/01/18 Time of Evaluation: 11:00 - Subjective Subjective: chart review afebrile vitals stable had stent in [place] came back lastnight -patient got disoriented is on one on one Neuro work up ordered labs pending patient seen awake, alert conversant , oriented x3 nurse by bedside condition discussed no cough no breathing problem Objective - Vital Signs/Intake and Output Vital Signs (last 24 hours): Temp Pulse Resp BP Pulse Ox 97.7 F 84 20 115/77 96 04/01/18 00:00 04/01/18 08:00 04/01/18 00:00 04/01/18 00:00 04/01/18 00:00 Intake and Output: 04/01/18 04/01/18 06:59 18:59 Output Total 750 Balance -750 - Medications Medications: Current Medications Albuterol/Ipratropium (Duoneb 3 Mg/0.5 Mg (3 Ml) Ud) 3 ml INH RQ4 [facility] Last Admin: 04/01/18 08:14 Dose: 3 ml Amlodipine Besylate (Norvasc) 10 mg PO DAILY [facility] Last Admin: 03/31/18 09:10 Dose: Not Given Aspirin (Ecotrin) 81 mg PO DAILY [facility] Last Admin: 03/31/18 09:06 Dose: 81 mg Clopidogrel Bisulfate (Plavix) 75 mg PO DAILY [facility] Last Admin: 03/31/18 09:06 Dose: 75 mg Furosemide (Lasix) 20 mg PO DAILY [facility] Heparin Sodium (Porcine) (Heparin) 5,000 units SC BID [facility] Last Admin: 03/31/18 18:40 Dose: Not Given Piperacillin Sod/Tazobactam Sod (Zosyn 2.25 Gm Iv Premix) 2.25 gm in 50 mls @ 100 mls/hr IVPB Q6H [facility]; Protocol Last Admin: 04/01/18 06:00 Dose: 100 mls/hr Influenza Virus Vaccine (Flucelvax Quad 4211-5606 Syr) 60 mcg IM .ONCE ONE Stop: 04/02/18 10:01 Losartan Potassium (Cozaar) 100 mg PO DAILY [facility] Last Admin: 03/31/18 09:09 Dose: Not Given Metoprolol Tartrate (Lopressor) 12.5 mg PO BID [facility] Last Admin: 03/31/18 18:40 Dose: Not Given Pantoprazole Sodium (Protonix Ec Tab) 40 mg PO DAILY [facility] Last Admin: 03/31/18 09:10 Dose: Not Given Pneumococcal Polyvalent Vaccine (Pneumovax 23 Vaccine) 0.5 ml IM .ONCE ONE Stop: 04/02/18 10:01 Potassium Chloride (K-Dur 20 Meq Er Tab) 20 meq PO DAILY [facility] Stop: 04/02/18 10:46 Last Admin: 03/31/18 11:20 Dose: 20 meq Prednisone (Prednisone Tab) 10 mg PO DAILY [facility] Stop: 04/01/18 23:59 Last Admin: 03/31/18 09:10 Dose: Not Given Rosuvastatin Calcium (Crestor) 5 mg PO HS [facility] Last Admin: 03/31/18 22:58 Dose: 5 mg - Labs Labs: 03/31/18 08:28 03/31/18 08:28 PT 10.4 SECONDS (9.7-12.2) 03/31/18 08:28 INR 1.0 03/31/18 08:28 APTT 26 SECONDS (21-34) 03/31/18 08:28 - Constitutional Appears: Non-toxic, No Acute Distress - Head Exam Head Exam: ATRAUMATIC, NORMOCEPHALIC - Eye Exam Eye Exam: Normal appearance. absent: Nystagmus - ENT Exam ENT Exam: Mucous Membranes Moist - Neck Exam Neck Exam: Full ROM. absent: Tenderness - Respiratory Exam Respiratory Exam: absent: Wheezes (but congested) - Cardiovascular Exam Cardiovascular Exam: REGULAR RHYTHM - GI/Abdominal Exam GI & Abdominal Exam: Soft, Normal Bowel Sounds. absent: Tenderness - Extremities Exam Extremities Exam: Full ROM, Normal Capillary Refill, Normal Inspection. absent: Pedal Edema - Neurological Exam Neurological Exam: Alert, Awake, Normal Gait, Oriented x3 - Psychiatric Exam Psychiatric exam: Normal Affect, Normal Mood - Skin Skin Exam: Intact, Normal Color Assessment and Plan - Assessment and Plan (Free Text) Assessment: Patient with multivessel disease post Stent in [place] day i episode of Disorientation post surgery and post transfer- resolved increasing Pulmonary congestion-/COPD = CXR- lasix, respiratory treatment- will resume IV solumedrol Hypertension- stable Hypokalemia- on supplementation follow up labs pending Debility- for PT case discussion
[2018-04-01] MEDS: Potassium Chloride 20 mEq ER Tab PO SCH (10:48)
[2018-04-01] MEDS: Pantoprazole 40 mg EC Tab PO SCH (10:48)
[2018-04-01] MEDS ORDERED: guaiFENesin 200 mg/10 ml Syrup UD PO PRN (11:00)
--- NOTE | 2018-04-01 11:03 | CT ---
Date of service: 04/01/2018 PROCEDURE: CT HEAD WITHOUT CONTRAST. HISTORY: confusion COMPARISON: History TECHNIQUE: Axial computed tomography images were obtained through the head/brain without intravenous contrast. Radiation dose: Total exam DLP = 964.68 mGy-cm. This CT exam was performed using one or more of the following dose reduction techniques: Automated exposure control, adjustment of the mA and/or kV according to patient size, and/or use of iterative reconstruction technique. FINDINGS: HEMORRHAGE: No intracranial hemorrhage. BRAIN: No mass effect or edema. Minimal age-appropriate atrophy. There is mild patchy and confluent periventricular and deep/subcortical white matter lucency consistent with microvascular white matter ischemic change. No evidence of acute infarct. There is a nini small white matter lacune in the right frontal deep white matter. Incidentally noted is flattening of the pituitary along the floor of the sella turcica. VENTRICLES: Unremarkable. No hydrocephalus. CALVARIUM: Unremarkable. PARANASAL SINUSES: Unremarkable as visualized. No significant inflammatory changes. MASTOID AIR CELLS: Unremarkable as visualized. No inflammatory changes. OTHER FINDINGS: None. IMPRESSION: No intracranial mass, hemorrhage or evidence of acute infarct. Mild chronic white matter ischemic change. Minimal age-appropriate atrophy. No other significant abnormality.
[2018-04-01 11:58] LABS: ALB/GLOB RATIO 1.3 (1.0-2.1); ALT/SGPT 55 U/L (9-52); AST/SGOT 42 U/L (14-36); BLOOD UREA NITROGEN 31 mg/dL (7-17); CALCIUM 9.8 mg/dl (8.6-10.4); GFR NON-AFRICAN AMERICAN 55
[2018-04-01 12:10] LABS: FREE T4 0.57 ng/dL (0.78-2.19)
[2018-04-01] MEDS ORDERED: Potassium Chloride 20 mEq ER Tab PO SCH (12:45)
[2018-04-01 13:00] LABS: FOLATE 16.9 ng/mL
[2018-04-01] MEDS: guaiFENesin 600 mg ER Tab PO SCH ×2 (13:08→17:34)
--- NOTE | 2018-04-01 15:28 | CP.PCM.PN ---
Subjective - Date & Time of Evaluation Date of Evaluation: 04/01/18 Time of Evaluation: 14:30 - Subjective Subjective: Patient seen and examined at bedside. At this time has no complaints and is resting comfortably. Per primary patient has an episode of acute shortness of breath last night, but feels better now. She denies any chest pain, dizziness, nausea, vomiting, or shortness of breath at this time. Physical exam General: no acute distress. Heart: regular rate and rhythm, S1, S2. Lungs: CTA bilaterally. Abdomen: soft, nontender, nondistended Assessment and plan. 1. Dyspnea: patient experienced an acute episode of dyspnea last night per prima ry team. At this time, vital signs are normal. Will continue to monitor for any additional episodes for the time being. Objective - Vital Signs/Intake and Output Vital Signs (last 24 hours): Temp Pulse Resp BP Pulse Ox 97 F L 102 H 18 147/79 99 04/01/18 08:00 04/01/18 08:00 04/01/18 08:00 04/01/18 10:48 04/01/18 08:00 Intake and Output: 04/01/18 04/01/18 06:59 18:59 Output Total 750 Balance -750 - Medications Medications: Current Medications Albuterol/Ipratropium (Duoneb 3 Mg/0.5 Mg (3 Ml) Ud) 3 ml INH RQ4 [facility] Last Admin: 04/01/18 11:08 Dose: 3 ml Amlodipine Besylate (Norvasc) 10 mg PO DAILY [facility] Last Admin: 04/01/18 10:48 Dose: 10 mg Aspirin (Ecotrin) 81 mg PO DAILY [facility] Last Admin: 04/01/18 10:48 Dose: 81 mg Clopidogrel Bisulfate (Plavix) 75 mg PO DAILY [facility] Last Admin: 04/01/18 10:48 Dose: 75 mg Furosemide (Lasix) 20 mg PO DAILY [facility] Last Admin: 04/01/18 10:48 Dose: 20 mg Guaifenesin (Robitussin) 200 mg PO Q4H PRN PRN Reason: Cough and congestion Last Admin: 04/01/18 13:08 Dose: 200 mg Guaifenesin (Mucinex La) 600 mg PO BID [facility] Last Admin: 04/01/18 13:08 Dose: 600 mg Heparin Sodium (Porcine) (Heparin) 5,000 units SC BID [facility] Last Admin: 04/01/18 13:26 Dose: 5,000 units Piperacillin Sod/Tazobactam Sod (Zosyn 2.25 Gm Iv Premix) 2.25 gm in 50 mls @ 100 mls/hr IVPB Q6H [facility]; Protocol Last Admin: 04/01/18 13:10 Dose: 100 mls/hr Influenza Virus Vaccine (Flucelvax Quad 6399-8100 Syr) 60 mcg IM .ONCE ONE Stop: 04/02/18 10:01 Losartan Potassium (Cozaar) 100 mg PO DAILY [facility] Last Admin: 04/01/18 10:48 Dose: 100 mg Methylprednisolone (Solu-Medrol) 40 mg IVP Q6 [facility] Metoprolol Tartrate (Lopressor) 12.5 mg PO BID [facility] Last Admin: 04/01/18 10:48 Dose: 12.5 mg Pantoprazole Sodium (Protonix Ec Tab) 40 mg PO DAILY [facility] Last Admin: 04/01/18 10:48 Dose: 40 mg Pneumococcal Polyvalent Vaccine (Pneumovax 23 Vaccine) 0.5 ml IM .ONCE ONE Stop: 04/02/18 10:01 Potassium Chloride (K-Dur 20 Meq Er Tab) 20 meq PO DAILY [facility] Stop: 04/02/18 10:46 Last Admin: 04/01/18 10:48 Dose: 20 meq Rosuvastatin Calcium (Crestor) 5 mg PO HS [facility] Last Admin: 03/31/18 22:58 Dose: 5 mg - Labs Labs: 03/31/18 08:28 04/01/18 11:34 PT 10.4 SECONDS (9.7-12.2) 03/31/18 08:28 INR 1.0 03/31/18 08:28 APTT 26 SECONDS (21-34) 03/31/18 08:28 Assessment and Plan (1) COPD exacerbation Status: Acute (2) Respiratory distress, acute Status: Acute
--- NOTE | 2018-04-01 16:26 | RAD ---
Date of service: 03/31/2018 HISTORY: congestion COMPARISON: 03/25/2018 FINDINGS: LUNGS: Confluent infiltrates, perihilar and upper lobe distribution, acute findings. PLEURA: No significant pleural effusion identified, no pneumothorax apparent. CARDIOVASCULAR: No atherosclerotic calcification present Normal. OSSEOUS STRUCTURES: No significant abnormalities. VISUALIZED UPPER ABDOMEN: Normal. OTHER FINDINGS: None. IMPRESSION: Acute, atypical infiltrates including reticular nodular changes with a perihilar and upper lobe distribution.
[2018-04-01] MEDS: MethylPREDNISolone 40 mg Vial IVP SCH (17:35)
[2018-04-01 18:20] LABS: PROLACTIN 15.6 ng/mL (3.0-18.9)
--- NOTE | 2018-04-01 23:13 | CP.PCM.PN ---
Subjective - Date & Time of Evaluation Date of Evaluation: 04/01/18 Time of Evaluation: 14:10 - Subjective Subjective: Patient seen and evaluated Denies chest pain dyspnea S/P RCA stent PMHX: HTN, anxiety, cholesterol Shx: denies All: NKDA sochx: denies smoking, alcohol or drug use Fhx: denies Review of Systems - Review of Systems All systems: reviewed and no additional remarkable complaints except Review of Systems: as per HPI Physical Exam - Constitutional Appears: Non-toxic, No Acute Distress - Head Exam Head Exam: ATRAUMATIC, NORMAL INSPECTION, NORMOCEPHALIC - Eye Exam Eye Exam: EOMI, Normal appearance - ENT Exam ENT Exam: Mucous Membranes Moist, Normal Exam - Neck Exam Neck exam: Positive for: Normal Inspection - Respiratory Exam Respiratory Exam: Clear to Auscultation Bilateral, NORMAL BREATHING PATTERN. absent: Rales, Rhonchi, Wheezes - Cardiovascular Exam Cardiovascular Exam: Tachycardia, REGULAR RHYTHM, +S1, +S2 - GI/Abdominal Exam GI & Abdominal Exam: Normal Bowel Sounds, Soft. absent: Distended, Tenderness - Extremities Exam Extremities exam: Positive for: normal inspection - Back Exam Back exam: NORMAL INSPECTION - Neurological Exam Neurological exam: Alert, CN II-XII Intact, Oriented x3 - Psychiatric Exam Psychiatric exam: Normal Affect, Normal Mood - Skin Skin Exam: Dry, Intact, Normal Color, Warm Assessment and Plan Non STEMI S/P RCA stent Cardiac point of view cleared for discharge Objective - Vital Signs/Intake and Output Vital Signs (last 24 hours): Temp Pulse Resp BP Pulse Ox 98.0 F 57 L 18 111/70 98 04/01/18 17:14 04/01/18 19:45 04/01/18 17:14 04/01/18 17:14 04/01/18 17:14 Intake and Output: 04/01/18 04/02/18 18:59 06:59 Intake Total 20 650 Output Total 250 400 Balance -230 250 - Medications Medications: Current Medications Albuterol/Ipratropium (Duoneb 3 Mg/0.5 Mg (3 Ml) Ud) 3 ml INH RQ4 [facility] Last Admin: 04/01/18 15:46 Dose: Not Given Amlodipine Besylate (Norvasc) 10 mg PO DAILY [facility] Last Admin: 04/01/18 10:48 Dose: 10 mg Aspirin (Ecotrin) 81 mg PO DAILY [facility] Last Admin: 04/01/18 10:48 Dose: 81 mg Clopidogrel Bisulfate (Plavix) 75 mg PO DAILY [facility] Last Admin: 04/01/18 10:48 Dose: 75 mg Furosemide (Lasix) 20 mg PO DAILY [facility] Last Admin: 04/01/18 10:48 Dose: 20 mg Guaifenesin (Robitussin) 200 mg PO Q4H PRN PRN Reason: Cough and congestion Last Admin: 04/01/18 13:08 Dose: 200 mg Guaifenesin (Mucinex La) 600 mg PO BID [facility] Last Admin: 04/01/18 17:34 Dose: 600 mg Heparin Sodium (Porcine) (Heparin) 5,000 units SC BID [facility] Last Admin: 04/01/18 17:34 Dose: 5,000 units Piperacillin Sod/Tazobactam Sod (Zosyn 2.25 Gm Iv Premix) 2.25 gm in 50 mls @ 100 mls/hr IVPB Q6H [facility]; Protocol Last Admin: 04/01/18 19:30 Dose: 100 mls/hr Influenza Virus Vaccine (Flucelvax Quad 5138-5821 Syr) 60 mcg IM .ONCE ONE Stop: 04/02/18 10:01 Levothyroxine Sodium (Synthroid) 75 mcg PO DAILY@0630 [facility] Losartan Potassium (Cozaar) 100 mg PO DAILY [facility] Last Admin: 04/01/18 10:48 Dose: 100 mg Methylprednisolone (Solu-Medrol) 40 mg IVP Q6 [facility] Last Admin: 04/01/18 17:35 Dose: 40 mg Metoprolol Tartrate (Lopressor) 12.5 mg PO BID [facility] Last Admin: 04/01/18 17:34 Dose: 12.5 mg Pantoprazole Sodium (Protonix Ec Tab) 40 mg PO DAILY [facility] Last Admin: 04/01/18 10:48 Dose: 40 mg Pneumococcal Polyvalent Vaccine (Pneumovax 23 Vaccine) 0.5 ml IM .ONCE ONE Stop: 04/02/18 10:01 Potassium Chloride (K-Dur 20 Meq Er Tab) 20 meq PO DAILY [facility] Stop: 04/02/18 10:46 Last Admin: 04/01/18 10:48 Dose: 20 meq Rosuvastatin Calcium (Crestor) 5 mg PO HS [facility] Last Admin: 04/01/18 21:34 Dose: 5 mg - Labs Labs: 03/31/18 08:28 04/01/18 11:34 PT 10.4 SECONDS (9.7-12.2) 03/31/18 08:28 INR 1.0 03/31/18 08:28 APTT 26 SECONDS (21-34) 03/31/18 08:28
[2018-04-02] MEDS: Piperacill/Tazo 2.25gm in Dex 2.25 GM/50 ML BAG IVPB SCH ×4 (00:32→19:49)
[2018-04-02] MEDS: MethylPREDNISolone 40 mg Vial IVP SCH ×4 (00:32→21:32)
[2018-04-02] MEDS: Albuterol-Ipratrop 3 mg / 0.5 (3 ml) UD INH SCH ×6 (03:15→23:43)
[2018-04-02] MEDS: Levothyroxine 75 MCG TAB PO SCH (06:26)
--- NOTE | 2018-04-02 07:07 | CP.PCM.CON ---
History of Present Illness - History of Present Illness History of Present Illness: CONSULTATION DICTATED METABOLIC ENCEPHALOPATHY RIGHT HEMIPARESIS NEW Vs OLD CONTINUE STROKE PROPHYLAXIS OOB PT THYROID SUPPLEMENTS OTHER WORK UP ON PROGRESS Past Patient History - Infectious Disease Hx of Infectious Diseases: None - Past Medical History & Family History Past Medical History?: Yes - Past Social History Smoking Status: Never Smoked - CARDIAC Hx Hypertension: Yes - PULMONARY Hx Respiratory Disorders: No - NEUROLOGICAL Hx Neurological Disorder: No - HEENT Hx HEENT Problems: No - RENAL Hx Chronic Kidney Disease: No - ENDOCRINE/METABOLIC Hx Endocrine Disorders: No - HEMATOLOGICAL/ONCOLOGICAL Hx Blood Disorders: No - INTEGUMENTARY Hx Dermatological Problems: No - MUSCULOSKELETAL/RHEUMATOLOGICAL Hx Musculoskeletal Disorders: No Hx Falls: No - GASTROINTESTINAL Hx Gastrointestinal Disorders: No - GENITOURINARY/GYNECOLOGICAL Hx Genitourinary Disorders: No - PSYCHIATRIC Hx Substance Use: No - SURGICAL HISTORY Hx Surgeries: No - ANESTHESIA Hx Anesthesia: No Meds Allergies/Adverse Reactions: Allergies Allergy/AdvReac Type Severity Reaction Status Date / Time No Known Allergies Allergy Verified 03/25/18 20:59 - Medications Medications: Current Medications Albuterol/Ipratropium (Duoneb 3 Mg/0.5 Mg (3 Ml) Ud) 3 ml INH RQ4 [facility] Last Admin: 04/02/18 03:15 Dose: Not Given Amlodipine Besylate (Norvasc) 10 mg PO DAILY [facility] Last Admin: 04/01/18 10:48 Dose: 10 mg Aspirin (Ecotrin) 81 mg PO DAILY [facility] Last Admin: 04/01/18 10:48 Dose: 81 mg Clopidogrel Bisulfate (Plavix) 75 mg PO DAILY [facility] Last Admin: 04/01/18 10:48 Dose: 75 mg Furosemide (Lasix) 20 mg PO DAILY [facility] Last Admin: 04/01/18 10:48 Dose: 20 mg Guaifenesin (Robitussin) 200 mg PO Q4H PRN PRN Reason: Cough and congestion Last Admin: 04/01/18 13:08 Dose: 200 mg Guaifenesin (Mucinex La) 600 mg PO BID [facility] Last Admin: 04/01/18 17:34 Dose: 600 mg Heparin Sodium (Porcine) (Heparin) 5,000 units SC BID [facility] Last Admin: 04/01/18 17:34 Dose: 5,000 units Piperacillin Sod/Tazobactam Sod (Zosyn 2.25 Gm Iv Premix) 2.25 gm in 50 mls @ 100 mls/hr IVPB Q6H [facility]; Protocol Last Admin: 04/02/18 06:26 Dose: 100 mls/hr Influenza Virus Vaccine (Flucelvax Quad 3289-7531 Syr) 60 mcg IM .ONCE ONE Stop: 04/02/18 10:01 Levothyroxine Sodium (Synthroid) 75 mcg PO DAILY@0630 [facility] Last Admin: 04/02/18 06:26 Dose: 75 mcg Losartan Potassium (Cozaar) 100 mg PO DAILY [facility] Last Admin: 04/01/18 10:48 Dose: 100 mg Methylprednisolone (Solu-Medrol) 40 mg IVP Q6 [facility] Last Admin: 04/02/18 06:26 Dose: 40 mg Metoprolol Tartrate (Lopressor) 12.5 mg PO BID [facility] Last Admin: 04/01/18 17:34 Dose: 12.5 mg Pantoprazole Sodium (Protonix Ec Tab) 40 mg PO DAILY [facility] Last Admin: 04/01/18 10:48 Dose: 40 mg Pneumococcal Polyvalent Vaccine (Pneumovax 23 Vaccine) 0.5 ml IM .ONCE ONE Stop: 04/02/18 10:01 Potassium Chloride (K-Dur 20 Meq Er Tab) 20 meq PO DAILY [facility] Stop: 04/02/18 10:46 Last Admin: 04/01/18 10:48 Dose: 20 meq Rosuvastatin Calcium (Crestor) 5 mg PO HS [facility] Last Admin: 04/01/18 21:34 Dose: 5 mg Results - Vital Signs Recent Vital Signs: Last Vital Signs Temp 97.7 F 04/01/18 23:40 Pulse 54 L 04/02/18 00:00 Resp 20 04/01/18 23:40 BP 127/77 04/01/18 23:40 Pulse Ox 100 04/01/18 23:40 - Labs Result Diagrams: 03/31/18 08:28 04/01/18 11:34 Labs: Laboratory Results - last 24 hr 04/01/18 04/01/18 04/01/18 11:34 11:34 11:34 Sodium 136 Potassium 3.4 L Chloride 97 L Carbon Dioxide 32 H Anion Gap 10 BUN 31 H Creatinine 1.0 Est GFR ( Amer) > 60 Est GFR (Non-Af Amer) 55 Random Glucose 105 Calcium 9.8 Total Bilirubin 0.6 AST 42 H D ALT 55 H D Alkaline Phosphatase 88 Total Protein 7.1 Albumin 4.0 Globulin 3.1 Albumin/Globulin Ratio 1.3 Vitamin B12 920 Folate 16.9 Free T4 0.57 L TSH 3rd Generation 29.40 H Prolactin 15.6
[2018-04-02] MEDS: Pantoprazole 40 mg EC Tab PO SCH (09:38)
[2018-04-02] MEDS: guaiFENesin 600 mg ER Tab PO SCH ×2 (09:38→18:19)
[2018-04-02] MEDS: Potassium Chloride 20 mEq ER Tab PO SCH (09:38)
[2018-04-02] MEDS ORDERED: Influenza Vaccine 60 mcg/0.5 mL SYR (4YR UP) IM ONE (10:00)
[2018-04-02] MEDS ORDERED: Pneumococcal 23-Valent Vaccine IM ONE (10:00)
--- NOTE | 2018-04-02 10:17 | CP.PCM.PN ---
Subjective - Date & Time of Evaluation Date of Evaluation: 04/02/18 Time of Evaluation: 00:45 - Subjective Subjective: chart review CXR result noted- infiltrates Vitas stable afebrile repeat potassium still low Medications reviewed started on synthorid for hypothyroidism post stent on Plavix patient seen in bed patient alert, move all extremetes. Oriented x3 follows command the same baseline-apnicky- anxios excoited- then cannot utter words, when calmed down- will speak normally, this time, noted speech problem came discussed condition undergoing Stroke evaluation on Plavix Objective - Vital Signs/Intake and Output Vital Signs (last 24 hours): Temp Pulse Resp BP Pulse Ox 97.9 F 70 20 132/68 100 04/02/18 07:00 04/02/18 07:39 04/02/18 07:00 04/02/18 09:40 04/02/18 07:00 Intake and Output: 04/02/18 04/02/18 06:59 18:59 Intake Total 950 Output Total 900 Balance 50 - Medications Medications: Current Medications Albuterol/Ipratropium (Duoneb 3 Mg/0.5 Mg (3 Ml) Ud) 3 ml INH RQ4 [facility] Last Admin: 04/02/18 09:25 Dose: 3 ml Amlodipine Besylate (Norvasc) 10 mg PO DAILY [facility] Last Admin: 04/02/18 09:38 Dose: 10 mg Aspirin (Ecotrin) 81 mg PO DAILY [facility] Last Admin: 04/02/18 09:38 Dose: 81 mg Azithromycin (Zithromax) 250 mg PO DAILY [facility]; Protocol Stop: 04/07/18 10:01 Clopidogrel Bisulfate (Plavix) 75 mg PO DAILY [facility] Last Admin: 04/02/18 09:38 Dose: 75 mg Furosemide (Lasix) 20 mg PO DAILY [facility] Last Admin: 04/02/18 09:40 Dose: 20 mg Guaifenesin (Robitussin) 200 mg PO Q4H PRN PRN Reason: Cough and congestion Last Admin: 04/01/18 13:08 Dose: 200 mg Guaifenesin (Mucinex La) 600 mg PO BID [facility] Last Admin: 04/02/18 09:38 Dose: 600 mg Heparin Sodium (Porcine) (Heparin) 5,000 units SC BID [facility] Last Admin: 04/02/18 09:38 Dose: 5,000 units Piperacillin Sod/Tazobactam Sod (Zosyn 2.25 Gm Iv Premix) 2.25 gm in 50 mls @ 100 mls/hr IVPB Q6H [facility]; Protocol Last Admin: 04/02/18 06:26 Dose: 100 mls/hr Azithromycin 500 mg/ Sodium (Chloride) 250 mls @ 250 mls/hr IVPB ONCE [facility]; Protocol Stop: 04/02/18 11:59 Levothyroxine Sodium (Synthroid) 75 mcg PO DAILY@0630 [facility] Last Admin: 04/02/18 06:26 Dose: 75 mcg Losartan Potassium (Cozaar) 100 mg PO DAILY [facility] Last Admin: 04/02/18 09:37 Dose: 100 mg Methylprednisolone (Solu-Medrol) 40 mg IVP Q6 [facility] Last Admin: 04/02/18 06:26 Dose: 40 mg Metoprolol Tartrate (Lopressor) 12.5 mg PO BID [facility] Last Admin: 04/02/18 09:38 Dose: 12.5 mg Pantoprazole Sodium (Protonix Ec Tab) 40 mg PO DAILY [facility] Last Admin: 04/02/18 09:38 Dose: 40 mg Potassium Chloride (K-Dur 20 Meq Er Tab) 20 meq PO DAILY [facility] Stop: 04/02/18 10:46 Last Admin: 04/02/18 09:38 Dose: 20 meq Rosuvastatin Calcium (Crestor) 5 mg PO HS [facility] Last Admin: 04/01/18 21:34 Dose: 5 mg - Labs Labs: 03/31/18 08:28 04/01/18 11:34 PT 10.4 SECONDS (9.7-12.2) 03/31/18 08:28 INR 1.0 03/31/18 08:28 APTT 26 SECONDS (21-34) 03/31/18 08:28 - Constitutional Appears: Non-toxic, No Acute Distress - Head Exam Head Exam: ATRAUMATIC, NORMOCEPHALIC - Eye Exam Eye Exam: Normal appearance. absent: Nystagmus - ENT Exam ENT Exam: Mucous Membranes Moist - Neck Exam Neck Exam: Full ROM. absent: Tenderness - Respiratory Exam Respiratory Exam: Decreased Breath Sounds (but better- less congestion ), NORMAL BREATHING PATTERN. absent: Wheezes - Cardiovascular Exam Cardiovascular Exam: REGULAR RHYTHM - GI/Abdominal Exam GI & Abdominal Exam: Soft, Normal Bowel Sounds. absent: Tenderness - Extremities Exam Extremities Exam: Full ROM. absent: Joint Swelling, Pedal Edema - Neurological Exam Neurological Exam: Alert, Awake, Oriented x3 (baseline- ambulatory- she moves all extremeties ) - Skin Skin Exam: Intact, Normal Color. absent: Rash Assessment and Plan - Assessment and Plan (Free Text) Assessment: Patient with COPD-improved Pneumonia- possibly hospital acquired-r/o aspiration- adjust antibiotic, continue respiratory treatment CVA- for swallow speech eval, and therapy , ongoing evlauation MRI pending Debility- for PT - CAD -post stent on plavis=x and aspirin placed on Lasix with improvement - will continue for now Hypokalemia- on supplementation Hypothyroidism-started meds Hypertension- controlled continue meds High WBC- secondary to sterods High sugar -secondary to steroids- will do sliding scale for now
--- NOTE | 2018-04-02 10:22 | CON ---
DATE: 04/02/2018 NEUROLOGICAL PROBLEM: Change in mental status. CHIEF COMPLAINT: The patient was admitted on 03/25/2018 with history of respiratory distress. Patient was found to have a coronary artery disease status post stent at [facility]. Following this, the patient was found to be in change in mental status. From neurologic point of view, I was called in to evaluate her for further management. HISTORY OF PRESENT ILLNESS: Ms. Gricel Gonzalez is a 67-year-old thinly built, cachectic a right-handed female admitted with respiratory distress with coronary artery disease status post stent, found to be in change in mental status. No history of fall. No history of trauma. No history of involuntary movements during this hospitalization. No history of bowel or bladder incontinence or bitten tongue. The patient's baseline mental status is not known at present. PAST MEDICAL HISTORY: Hypertension, dyslipidemia, COPD. PERSONAL HISTORY: Denies smoking or alcohol use. ALLERGIES: NO KNOWN ALLERGIES. REVIEW OF SYSTEMS: 12-point system being reviewed from neuro, change in mental status. MEDICATIONS: Cozaar, Crestor, DuoNeb, Ecotrin, heparin subcu, potassium supplement, Lasix, Lopressor, Mucinex, Norvasc, Plavix, Robitussin, Synthroid. OBJECTIVE: VITAL SIGNS: Blood pressure 127/77, mean artery pressure of 93, respiratory rate 18, temperature 97.7 with a pulse rate 54. NECK: Supple. No carotid bruits. HEART: Sounds regular. EXTREMITIES: Distal as well as proximal muscle atrophy noted. NEUROLOGICAL: The patient's mental status examination, she is awake. She is in the hospital and she knows the year. She can able to do simple calculations. Significant right and left confusion. She could not able to follow three-step commands. She cannot cross the midline. She could not able to stabilize the position, could not able to keep her arms straight. Mild upper extremity pronator drift noted. Cranial nerve examination, responds to visual threat. Pupils reactive to light. Extraocular movement markedly decreased in all direction. No facial sensory deficit. Facial asymmetry manifesting with right nasolabial fold flattening. Tongue is moist. Good gag. Motor examination, on outstretched hand with eyes closed, slightly drift noted on the right side. Deep tendon reflexes right upper extremity is 3+, left upper extremity is 1+, left knee 3+, right knee 1+. Both ankles are absent. Plantars are upgoing on the right side, left side was downgoing. Sensory examination, responds to pain symmetrically on both sides. No cortical sensory loss. Coordination, she could try to reach the target and nose back and forth with mild discomfort. Gait is deferred at this time. CONCLUSION: As per my neurological examination and on reviewing her history, Ms. Monsalve Lisa being presenting with metabolic encephalopathy superimposed with right hemiparesis, probably secondary to her left subcortical dysfunction. This is probably new following stent placement procedure. However, it could be old which cannot be identifiable at present. The patient also presenting with bilateral distal symmetric sensory motor neuropathy. At workup CT of the head being reviewed, has bilateral periventricular ischemic changes, no acute process of ischemic process noted. Blood workup, WBC 16, hemoglobin 12.1, hematocrit 37.5, platelet 335. PT 10.4, INR 1, PTT 26. Sodium 136, potassium 3.4, chloride 97, bicarbonate 32, BUN 31, creatinine 1 with GFR more than 60. AST 42, ALT 55, TSH 29.40. Prolactin 15.6. B12 is 930. EKG normal sinus rhythm with lolis. RECOMMENDATIONS: 1. When medically stable, the patient should have MRI of the brain. 2. Carotid Doppler to assess the stenosis. 3. Cardiology followup of her cardiac status to rule out any thromboembolic phenomenon. 4. Continue antiplatelets with statin and angiotensin receptor blockers. 4. Agree with the thyroid supplements. 5. Electroencephalogram is recommended to rule out any paroxysmal activities. 6. The patient also to be checked for ammonia level to rule out any hepatic pathology. The patient should be kept fall precaution and physical therapy should be instituted as early as possible. Andrew Castro MD
[2018-04-02] MEDS ORDERED: Azithromycin 500 MG in Sodium Chloride 0.9% 250 ML IVPB ONE (11:00)
[2018-04-02] MEDS: (Novolog) Insulin Aspart, Recombinant 100 u/ml 10 ml vial SC SCH ×2 (17:10→21:31)
--- NOTE | 2018-04-02 23:43 | CP.PCM.PN ---
Subjective - Date & Time of Evaluation Date of Evaluation: 04/02/18 Time of Evaluation: 17:20 - Subjective Subjective: Patient with altered mental status Neuro eval in progress Patient seen and evaluated Patient is confused S/P RCA stent PMHX: HTN, anxiety, cholesterol Shx: denies All: NKDA sochx: denies smoking, alcohol or drug use Fhx: denies Review of Systems - Review of Systems All systems: reviewed and no additional remarkable complaints except Review of Systems: as per HPI Physical Exam - Constitutional Appears: Non-toxic, No Acute Distress - Head Exam Head Exam: ATRAUMATIC, NORMAL INSPECTION, NORMOCEPHALIC - Eye Exam Eye Exam: EOMI, Normal appearance - ENT Exam ENT Exam: Mucous Membranes Moist, Normal Exam - Neck Exam Neck exam: Positive for: Normal Inspection - Respiratory Exam Respiratory Exam: Clear to Auscultation Bilateral, NORMAL BREATHING PATTERN. absent: Rales, Rhonchi, Wheezes - Cardiovascular Exam Cardiovascular Exam: Tachycardia, REGULAR RHYTHM, +S1, +S2 - GI/Abdominal Exam GI & Abdominal Exam: Normal Bowel Sounds, Soft. absent: Distended, Tenderness - Extremities Exam Extremities exam: Positive for: normal inspection - Back Exam Back exam: NORMAL INSPECTION - Neurological Exam Neurological exam: Alert, CN II-XII Intact, Oriented x3 - Psychiatric Exam Psychiatric exam: Normal Affect, Normal Mood - Skin Skin Exam: Dry, Intact, Normal Color, Warm Assessment and Plan Non STEMI S/P RCA stent Altered mental status Objective - Vital Signs/Intake and Output Vital Signs (last 24 hours): Temp Pulse Resp BP Pulse Ox 98 F 86 20 145/90 99 04/02/18 15:00 04/02/18 16:44 04/02/18 15:00 04/02/18 15:00 04/02/18 15:00 Intake and Output: 04/02/18 04/03/18 18:59 06:59 Intake Total 1100 500 Output Total 400 250 Balance 700 250 - Medications Medications: Current Medications Albuterol/Ipratropium (Duoneb 3 Mg/0.5 Mg (3 Ml) Ud) 3 ml INH RQ4 [facility] Last Admin: 04/02/18 19:17 Dose: 3 ml Amlodipine Besylate (Norvasc) 10 mg PO DAILY [facility] Last Admin: 04/02/18 09:38 Dose: 10 mg Aspirin (Ecotrin) 81 mg PO DAILY [facility] Last Admin: 04/02/18 09:38 Dose: 81 mg Azithromycin (Zithromax) 250 mg PO DAILY [facility]; Protocol Stop: 04/07/18 10:01 Clopidogrel Bisulfate (Plavix) 75 mg PO DAILY [facility] Last Admin: 04/02/18 09:38 Dose: 75 mg Furosemide (Lasix) 20 mg PO DAILY [facility] Last Admin: 04/02/18 09:40 Dose: 20 mg Guaifenesin (Robitussin) 200 mg PO Q4H PRN PRN Reason: Cough and congestion Last Admin: 04/01/18 13:08 Dose: 200 mg Guaifenesin (Mucinex La) 600 mg PO BID [facility] Last Admin: 04/02/18 18:19 Dose: 600 mg Heparin Sodium (Porcine) (Heparin) 5,000 units SC BID [facility] Last Admin: 04/02/18 18:06 Dose: 5,000 units Piperacillin Sod/Tazobactam Sod (Zosyn 2.25 Gm Iv Premix) 2.25 gm in 50 mls @ 100 mls/hr IVPB Q6H [facility]; Protocol Last Admin: 04/02/18 19:49 Dose: 100 mls/hr Insulin Aspart (Novolog) 0 unit SC ACHS [facility]; Protocol Last Admin: 04/02/18 21:31 Dose: Not Given Levothyroxine Sodium (Synthroid) 75 mcg PO DAILY@0630 [facility] Last Admin: 04/02/18 06:26 Dose: 75 mcg Losartan Potassium (Cozaar) 100 mg PO DAILY [facility] Last Admin: 04/02/18 09:37 Dose: 100 mg Methylprednisolone (Solu-Medrol) 40 mg IVP Q8 [facility] Last Admin: 04/02/18 21:32 Dose: 40 mg Metoprolol Tartrate (Lopressor) 12.5 mg PO BID [facility] Last Admin: 04/02/18 18:06 Dose: 12.5 mg Pantoprazole Sodium (Protonix Ec Tab) 40 mg PO DAILY [facility] Last Admin: 04/02/18 09:38 Dose: 40 mg Potassium Chloride (K-Dur 20 Meq Er Tab) 20 meq PO DAILY [facility] Rosuvastatin Calcium (Crestor) 5 mg PO HS [facility] Last Admin: 04/02/18 21:31 Dose: 5 mg - Labs Labs: 03/31/18 08:28 04/01/18 11:34 PT 10.4 SECONDS (9.7-12.2) 03/31/18 08:28 INR 1.0 03/31/18 08:28 APTT 26 SECONDS (21-34) 03/31/18 08:28
[2018-04-03] MEDS: Piperacill/Tazo 2.25gm in Dex 2.25 GM/50 ML BAG IVPB SCH ×4 (01:02→18:34)
[2018-04-03] MEDS: Albuterol-Ipratrop 3 mg / 0.5 (3 ml) UD INH SCH ×5 (03:15→20:43)
[2018-04-03] MEDS: MethylPREDNISolone 40 mg Vial IVP SCH ×2 (06:12→22:13)
[2018-04-03] MEDS: Levothyroxine 75 MCG TAB PO SCH (06:12)
[2018-04-03 07:21] LABS: BASO # 0.1 K/uL (0.0-0.2); BASO % 0.4 % (0.0-2.0); EOS % 0.1 % (0.0-4.0); HEMOGLOBIN 10.6 g/dL (11.0-16.0); LYMPH # 0.4 K/uL (1.0-4.3); LYMPH % 2.3 % (20.0-40.0); MEAN CORPUSCULAR HEMOGLOBIN 31.4 pg (27.0-31.0); MEAN CORPUSCULAR HGB CONC 33.4 g/dL (33.0-37.0); MEAN PLATELET VOLUME 8.8 fL (7.2-11.7); MONO # 0.8 K/uL (0.0-0.8); MONO % 4.6 % (0.0-10.0); NEUT # 16.8 K/uL (1.8-7.0); NEUT % 92.6 % (50.0-75.0); PLATELET COUNT 362 K/uL (130-400); RBC 3.37 Mil/uL (3.80-5.20); RED CELL DISTRIBUTION WIDTH 13.6 % (11.5-14.5); WHITE BLOOD COUNT 18.1 K/uL (4.8-10.8)
[2018-04-03] MEDS: (Novolog) Insulin Aspart, Recombinant 100 u/ml 10 ml vial SC SCH ×6 (07:40→21:50)
[2018-04-03 07:49] LABS: ALB/GLOB RATIO 1.3 (1.0-2.1); ALBUMIN 3.6 g/dL (3.5-5.0); ALT/SGPT 57 U/L (9-52); AST/SGOT 38 U/L (14-36); BLOOD UREA NITROGEN 43 mg/dL (7-17); CALCIUM 9.6 mg/dl (8.6-10.4); GFR NON-AFRICAN AMERICAN 55
[2018-04-03 08:50] LABS: LYMPHOCYTE 2 % (20-40); MONOCYTE 4 % (0-10); NEUTROPHIL 94 % (50-75); TOTAL CELLS COUNTED 100
[2018-04-03 08:51] LABS: PLATELET ESTIMATE NORMAL (NORMAL)
--- NOTE | 2018-04-03 09:17 | PN ---
DATE: 04/03/2018 TIME OF EVALUATION: 07:05 a.m. NEUROLOGICAL PROBLEM: Right hemiparesis, status post stent placement. PHYSICAL EXAMINATION: VITAL SIGNS: Blood pressure 144/74, mean artery pressure of 97, respiratory rate 18, temperature 97.8, and pulse rate is 61. GENERAL: The patient is more awake, alert, more comprehended today. Moves all four extremities. However, some uncontrollable movement, could not able to position her arm, both arms left more than her right side. Mild hemiparesis is still noted. NEURO: Deep tendon reflexes are unchanged. Plantars are upgoing. The patient's condition has been discussed with the home office claims examiner that the stent what she got can be MRI compatible. It had been discussed with nurse. The patient is going to have MRI of the brain which is supposed to have it done yesterday. Probably, it will be done today for further localizing her [employer] N[employer]SE insult. Continue antiplatelets, statin, and angiotensin receptor blockers as she has been getting. The patient should be get out of the bed and physical therapy should be initiated. Andrew Castro MD [facility]
[2018-04-03] MEDS ORDERED: Potassium Chloride 20 mEq ER Tab PO SCH (10:00)
[2018-04-03] MEDS: guaiFENesin 600 mg ER Tab PO SCH ×2 (10:29→18:31)
[2018-04-03] MEDS: Pantoprazole 40 mg EC Tab PO SCH (10:29)
--- NOTE | 2018-04-03 10:40 | MRI ---
Date of service: 04/03/2018 PROCEDURE: MRI BRAIN WITHOUT CONTRAST HISTORY: CONFUSION COMPARISON: None available. TECHNIQUE: Multiplanar, multisequence MR images of the brain were obtained without intravenous contrast enhancement. FINDINGS: HEMORRHAGE: None DWI: The study demonstrate diffusion restriction in body of corpus callosum extending slightly to the splenium with corresponding hypointense signal in the ADC map. Findings suspicious for acute/subacute infarction. This focal diffusion restriction demonstrate hyperintense T2 FLAIR signal. BRAIN PARENCHYMA: No mass effect or edema. [id number] atrophy and moderate chronic microvascular white matter ischemic disease are noted. VENTRICLES: Unremarkable. No hydrocephalus. CRANIUM: Unremarkable. ORBITS: Grossly unremarkable. PARANASAL SINUSES/MASTOIDS: Mild mucosal thickening seen in the sinuses. VASCULAR SYSTEM: Skull base flow voids intact. OTHER FINDINGS: None. IMPRESSION: Focal diffusion restriction in the body of the corpus callosum with corresponding hypointense signal in the ADC map suggestive of acute/subacute infarct. Moderate atrophy and moderate chronic microvascular white matter ischemic disease.
[2018-04-03] MEDS ORDERED: Potassium Chloride 20 mEq/15 ml LIQ UD PO ONE (11:00)
--- NOTE | 2018-04-03 13:11 | CP.PCM.PN ---
Subjective - Date & Time of Evaluation Date of Evaluation: 04/03/18 Time of Evaluation: 07:20 - Subjective Subjective: Patient seen and examined Shortness of breath and cough much improved For MRI of head Status post RCA stent placement Afebrile Objective - Vital Signs/Intake and Output Vital Signs (last 24 hours): Temp Pulse Resp BP Pulse Ox 97.8 F 69 18 135/77 99 04/03/18 08:03 04/03/18 12:00 04/03/18 08:03 04/03/18 10:30 04/03/18 08:03 Intake and Output: 04/03/18 04/03/18 06:59 18:59 Intake Total 500 Output Total 250 Balance 250 - Medications Medications: Current Medications Albuterol/Ipratropium (Duoneb 3 Mg/0.5 Mg (3 Ml) Ud) 3 ml INH RQ4 [facility] Last Admin: 04/03/18 12:07 Dose: 3 ml Amlodipine Besylate (Norvasc) 10 mg PO DAILY [facility] Last Admin: 04/03/18 10:33 Dose: 10 mg Aspirin (Ecotrin) 81 mg PO DAILY [facility] Last Admin: 04/03/18 10:29 Dose: 81 mg Azithromycin (Zithromax) 250 mg PO DAILY [facility]; Protocol Stop: 04/07/18 10:01 Last Admin: 04/03/18 10:29 Dose: 250 mg Clopidogrel Bisulfate (Plavix) 75 mg PO DAILY [facility] Last Admin: 04/03/18 10:30 Dose: 75 mg Furosemide (Lasix) 20 mg PO DAILY [facility] Last Admin: 04/03/18 10:30 Dose: 20 mg Guaifenesin (Robitussin) 200 mg PO Q4H PRN PRN Reason: Cough and congestion Last Admin: 04/01/18 13:08 Dose: 200 mg Guaifenesin (Mucinex La) 600 mg PO BID [facility] Last Admin: 04/03/18 10:29 Dose: 600 mg Heparin Sodium (Porcine) (Heparin) 5,000 units SC BID [facility] Last Admin: 04/03/18 10:30 Dose: 5,000 units Piperacillin Sod/Tazobactam Sod (Zosyn 2.25 Gm Iv Premix) 2.25 gm in 50 mls @ 100 mls/hr IVPB Q6H [facility]; Protocol Last Admin: 04/03/18 07:58 Dose: 100 mls/hr Insulin Aspart (Novolog) 0 unit SC ACHS [facility]; Protocol Last Admin: 04/03/18 07:40 Dose: Not Given Levothyroxine Sodium (Synthroid) 75 mcg PO DAILY@0630 [facility] Last Admin: 04/03/18 06:12 Dose: 75 mcg Losartan Potassium (Cozaar) 100 mg PO DAILY [facility] Last Admin: 04/03/18 10:29 Dose: 100 mg Methylprednisolone (Solu-Medrol) 40 mg IVP Q8 [facility] Last Admin: 04/03/18 06:12 Dose: 40 mg Metoprolol Tartrate (Lopressor) 12.5 mg PO BID [facility] Last Admin: 04/03/18 10:29 Dose: 12.5 mg Pantoprazole Sodium (Protonix Ec Tab) 40 mg PO DAILY [facility] Last Admin: 04/03/18 10:29 Dose: 40 mg Rosuvastatin Calcium (Crestor) 5 mg PO HS [facility] Last Admin: 04/02/18 21:31 Dose: 5 mg - Labs Labs: 04/03/18 07:04 04/03/18 07:04 PT 10.4 SECONDS (9.7-12.2) 03/31/18 08:28 INR 1.0 03/31/18 08:28 APTT 26 SECONDS (21-34) 03/31/18 08:28 - Head Exam Head Exam: ATRAUMATIC, NORMOCEPHALIC - ENT Exam ENT Exam: Mucous Membranes Moist - Neck Exam Neck Exam: Normal Inspection - Respiratory Exam Respiratory Exam: Clear to Ausculation Bilateral - Cardiovascular Exam Cardiovascular Exam: REGULAR RHYTHM - GI/Abdominal Exam GI & Abdominal Exam: Soft, Normal Bowel Sounds - Extremities Exam Extremities Exam: Full ROM Assessment and Plan (1) COPD exacerbation Assessment & Plan: Discontinue IV antibiotics Switch to p.o. prednisone Continue nebulizer treatment Neurology workup Status: Acute (2) Respiratory distress, acute Status: Acute
--- NOTE | 2018-04-03 13:35 | VASCLAB ---
Date of service: 04/03/2018 PROCEDURE: Carotid Duplex Exam. HISTORY: stroke COMPARISON: None available. TECHNIQUE: Grayscale and duplex Doppler evaluation of the cervical carotid and vertebral arteries were performed. The common carotid, carotid bifurcations and cervical Internal Carotid Artery (ICA) and proximal External Carotid Artery (ECA) were evaluated. The vertebral arteries were evaluated for gross patency and flow direction. Report prepared by Rangel Jimenez, BS, RVT FINDINGS: RIGHT CAROTID ARTERIES: 1. Common Carotid Artery: No significant focal plaque formation of the right common carotid artery. Maximum Peak Systolic velocity: 52 cm/sec: End-diastolic velocity 14 cm/sec. 2. Carotid Bifurcation: plaque formation. Maximum Peak Systolic velocity: 61 cm/sec: End-diastolic velocity 14 cm/sec. 3. Internal Carotid Artery: Plaque description: 3.1. Proximal Segment: Peak systolic velocity 67 cm/sec: End-diastolic velocity 18 cm/sec - % stenosis 0-15% 3.2. Middle Segment: Peak systolic velocity 84 cm/sec: End-diastolic velocity 21 cm/sec - % stenosis 0-15% 3.3. Distal Segment: Peak systolic velocity 60 cm/sec: End-diastolic velocity 17 cm/sec - % stenosis 0-15% 4. External Carotid Artery: No significant focal plaque formation. Peak systolic velocity 103 cm/sec 5. ICA/CCA Ratio: 1.6 LEFT CAROTID ARTERIES: 1. Common Carotid Artery: No significant focal plaque formation of the left common carotid artery. Maximum Peak Systolic velocity: 43 cm/sec: End-diastolic velocity 11 cm/sec. 2. Carotid Bifurcation: plaque formation. Maximum Peak Systolic velocity: 40 cm/sec: End-diastolic velocity 8 cm/sec. 3. Internal Carotid Artery: Plaque description: 3.1. Proximal Segment: Peak systolic velocity 75 cm/sec: End-diastolic velocity 27 cm/sec - % stenosis 0-15% 3.2. Middle Segment: Peak systolic velocity 85 cm/sec: End-diastolic velocity 25 cm/sec - % stenosis 0-15% 3.3. Distal Segment: Peak systolic velocity 91 cm/sec: End-diastolic velocity 28 cm/sec - % stenosis 0-15% 4. External Carotid Artery: No significant focal plaque formation. Peak systolic velocity 73 cm/sec 5. ICA/CCA Ratio: 2.1 VERTEBRAL ARTERIES: 1. Right Vertebral Artery: The right vertebral artery flow direction is antegrade. 2. Left Vertebral Artery: The left vertebral artery flow direction is antegrade. OTHER FINDINGS: 1. Right Brachial Blood pressure: mmHg. 2. Left Brachial Blood pressure: mmHg. 3. No atherosclerotic calcification present IMPRESSION: RIGHT: Duplex scan does not suggest hemodynamically significant stenosis of the right extracranial carotid arteries. LEFT: Duplex scan does not suggest hemodynamically significant stenosis of the left extracranial carotid arteries.
--- NOTE | 2018-04-03 16:43 | CP.PCM.PN ---
Subjective - Date & Time of Evaluation Date of Evaluation: 04/03/18 Time of Evaluation: 08:45 - Subjective Subjective: chart review-afebrile no unusual event labs reviewed patient seen in bed- explanined to staff baseline of patient explained that her speech has changed, un clear words spoken presley reports no problem inswallowing no choking she remains oriented Objective - Vital Signs/Intake and Output Vital Signs (last 24 hours): Temp Pulse Resp BP Pulse Ox 97.8 F 69 18 135/77 99 04/03/18 08:03 04/03/18 12:00 04/03/18 08:03 04/03/18 10:30 04/03/18 08:03 Intake and Output: 04/03/18 04/03/18 06:59 18:59 Intake Total 500 Output Total 250 Balance 250 - Medications Medications: Current Medications Albuterol/Ipratropium (Duoneb 3 Mg/0.5 Mg (3 Ml) Ud) 3 ml INH RQ4 [facility] Last Admin: 04/03/18 15:51 Dose: 3 ml Amlodipine Besylate (Norvasc) 10 mg PO DAILY [facility] Last Admin: 04/03/18 10:33 Dose: 10 mg Aspirin (Ecotrin) 81 mg PO DAILY [facility] Last Admin: 04/03/18 10:29 Dose: 81 mg Azithromycin (Zithromax) 250 mg PO DAILY [facility]; Protocol Stop: 04/07/18 10:01 Last Admin: 04/03/18 10:29 Dose: 250 mg Clopidogrel Bisulfate (Plavix) 75 mg PO DAILY [facility] Last Admin: 04/03/18 10:30 Dose: 75 mg Furosemide (Lasix) 20 mg PO DAILY [facility] Last Admin: 04/03/18 10:30 Dose: 20 mg Guaifenesin (Robitussin) 200 mg PO Q4H PRN PRN Reason: Cough and congestion Last Admin: 04/01/18 13:08 Dose: 200 mg Guaifenesin (Mucinex La) 600 mg PO BID [facility] Last Admin: 04/03/18 10:29 Dose: 600 mg Heparin Sodium (Porcine) (Heparin) 5,000 units SC BID [facility] Last Admin: 04/03/18 10:30 Dose: 5,000 units Piperacillin Sod/Tazobactam Sod (Zosyn 2.25 Gm Iv Premix) 2.25 gm in 50 mls @ 100 mls/hr IVPB Q6H [facility]; Protocol Last Admin: 04/03/18 13:19 Dose: 100 mls/hr Insulin Aspart (Novolog) 0 unit SC ACHS [facility]; Protocol Last Admin: 04/03/18 12:45 Dose: 3 unit Levothyroxine Sodium (Synthroid) 75 mcg PO DAILY@0630 [facility] Last Admin: 04/03/18 06:12 Dose: 75 mcg Losartan Potassium (Cozaar) 100 mg PO DAILY [facility] Last Admin: 04/03/18 10:29 Dose: 100 mg Metoprolol Tartrate (Lopressor) 12.5 mg PO BID [facility] Last Admin: 04/03/18 10:29 Dose: 12.5 mg Pantoprazole Sodium (Protonix Ec Tab) 40 mg PO DAILY [facility] Last Admin: 04/03/18 10:29 Dose: 40 mg Rosuvastatin Calcium (Crestor) 5 mg PO HS [facility] Last Admin: 04/02/18 21:31 Dose: 5 mg - Labs Labs: 04/03/18 07:04 04/03/18 07:04 PT 10.4 SECONDS (9.7-12.2) 03/31/18 08:28 INR 1.0 03/31/18 08:28 APTT 26 SECONDS (21-34) 03/31/18 08:28 - Constitutional Appears: Non-toxic, No Acute Distress - Head Exam Head Exam: ATRAUMATIC, NORMOCEPHALIC (right side abgle of mouth slightly weak ) - Eye Exam Eye Exam: Normal appearance - ENT Exam ENT Exam: Mucous Membranes Moist - Respiratory Exam Respiratory Exam: Decreased Breath Sounds (congestion improving ), NORMAL BREATHING PATTERN - Cardiovascular Exam Cardiovascular Exam: REGULAR RHYTHM - GI/Abdominal Exam GI & Abdominal Exam: Soft, Normal Bowel Sounds. absent: Tenderness - Back Exam Back Exam: Full ROM. absent: rash noted - Neurological Exam Neurological Exam: Alert, Awake, Oriented x3 - Psychiatric Exam Psychiatric exam: Normal Affect, Normal Mood - Skin Skin Exam: Intact, Normal Color Assessment and Plan - Assessment and Plan (Free Text) Assessment: Patient with Pneumonia- improving - on antibiotic COPD- tapering steroid high sugar high WBC- from steroid remained afebrile CAD -post stent - asymptomatic Infarction/CVA- currently on Plavix, aspirin Swallow eval speech therapy, PT Subacute eval hypokalemia-improved
[2018-04-04] MEDS: Piperacill/Tazo 2.25gm in Dex 2.25 GM/50 ML BAG IVPB SCH ×4 (00:30→18:26)
[2018-04-04] MEDS: Levothyroxine 75 MCG TAB PO SCH (06:20)
[2018-04-04] MEDS: (Novolog) Insulin Aspart, Recombinant 100 u/ml 10 ml vial SC SCH ×4 (07:14→22:04)
[2018-04-04] MEDS: Albuterol-Ipratrop 3 mg / 0.5 (3 ml) UD INH SCH ×4 (08:11→19:20)
--- NOTE | 2018-04-04 08:20 | CP.PCM.PN ---
Subjective - Date & Time of Evaluation Date of Evaluation: 04/04/18 Time of Evaluation: 08:40 - Subjective Subjective: chart review Vitals noted BP- afebrile notes noted-no unusual event labs yesterday- potassium better, mild anemia no bleeding patient seenmostly in bed , =cannot without support seen by PT discussed subacute currently no chestpain no cough on tapering steroid no fever BP noted to be on high side Objective - Vital Signs/Intake and Output Vital Signs (last 24 hours): Temp Pulse Resp BP Pulse Ox 97.5 F L 58 L 20 151/66 H 100 04/03/18 21:15 04/03/18 21:15 04/03/18 21:15 04/03/18 21:15 04/03/18 21:15 Intake and Output: 04/04/18 04/04/18 06:59 18:59 Intake Total 550 Output Total 700 Balance -150 - Medications Medications: Current Medications Albuterol/Ipratropium (Duoneb 3 Mg/0.5 Mg (3 Ml) Ud) 3 ml INH RQ4 [facility] Last Admin: 04/04/18 08:11 Dose: 3 ml Amlodipine Besylate (Norvasc) 10 mg PO DAILY [facility] Last Admin: 04/03/18 10:33 Dose: 10 mg Aspirin (Ecotrin) 81 mg PO DAILY [facility] Last Admin: 04/03/18 10:29 Dose: 81 mg Azithromycin (Zithromax) 250 mg PO DAILY [facility]; Protocol Stop: 04/07/18 10:01 Last Admin: 04/03/18 10:29 Dose: 250 mg Clopidogrel Bisulfate (Plavix) 75 mg PO DAILY [facility] Last Admin: 04/03/18 10:30 Dose: 75 mg Furosemide (Lasix) 20 mg PO DAILY [facility] Last Admin: 04/03/18 10:30 Dose: 20 mg Guaifenesin (Robitussin) 200 mg PO Q4H PRN PRN Reason: Cough and congestion Last Admin: 04/01/18 13:08 Dose: 200 mg Guaifenesin (Mucinex La) 600 mg PO BID [facility] Last Admin: 04/03/18 18:31 Dose: 600 mg Heparin Sodium (Porcine) (Heparin) 5,000 units SC BID [facility] Last Admin: 04/03/18 18:25 Dose: 5,000 units Piperacillin Sod/Tazobactam Sod (Zosyn 2.25 Gm Iv Premix) 2.25 gm in 50 mls @ 100 mls/hr IVPB Q6H [facility]; Protocol Last Admin: 04/04/18 06:20 Dose: 100 mls/hr Insulin Aspart (Novolog) 0 unit SC ACHS [facility]; Protocol Last Admin: 04/04/18 07:14 Dose: Not Given Levothyroxine Sodium (Synthroid) 75 mcg PO DAILY@0630 [facility] Last Admin: 04/04/18 06:20 Dose: 75 mcg Losartan Potassium (Cozaar) 100 mg PO DAILY [facility] Last Admin: 04/03/18 10:29 Dose: 100 mg Methylprednisolone (Solu-Medrol) 40 mg IVP Q12 [facility] Last Admin: 04/03/18 22:13 Dose: 40 mg Metoprolol Tartrate (Lopressor) 12.5 mg PO BID [facility] Last Admin: 04/03/18 18:31 Dose: 12.5 mg Pantoprazole Sodium (Protonix Ec Tab) 40 mg PO DAILY [facility] Last Admin: 04/03/18 10:29 Dose: 40 mg Potassium Chloride (Klor-Con 10) 10 meq PO BRK [facility] Rosuvastatin Calcium (Crestor) 5 mg PO HS [facility] Last Admin: 04/03/18 22:16 Dose: 5 mg - Labs Labs: 04/03/18 07:04 04/03/18 07:04 PT 10.4 SECONDS (9.7-12.2) 03/31/18 08:28 INR 1.0 03/31/18 08:28 APTT 26 SECONDS (21-34) 03/31/18 08:28 - Constitutional Appears: Well, Non-toxic, No Acute Distress - Head Exam Head Exam: ATRAUMATIC, NORMOCEPHALIC - Eye Exam Eye Exam: Normal appearance - ENT Exam ENT Exam: Mucous Membranes Moist - Respiratory Exam Respiratory Exam: Decreased Breath Sounds (some congestion but better ), NORMAL BREATHING PATTERN - Cardiovascular Exam Cardiovascular Exam: REGULAR RHYTHM - GI/Abdominal Exam GI & Abdominal Exam: Soft, Normal Bowel Sounds. absent: Tenderness - Extremities Exam Extremities Exam: Full ROM, Joint Swelling. absent: Pedal Edema, Tenderness (with spontaneous movement of all extremeitis ) - Neurological Exam Neurological Exam: Alert, Awake, Oriented x3 (gait assessment by PT ) - Psychiatric Exam Psychiatric exam: Normal Affect, Normal Mood - Skin Skin Exam: Intact, Normal Color Assessment and Plan - Assessment and Plan (Free Text) Assessment: Patient with CVA- with right sided weakness slurred speech on PT- subacute discussion CAD post stent with congestion- Lasix added Pneumonia/COPD- on antibiotic, respiratory treatment, tapering steroid Hypokalemia- resolved but will continue, patient is on lasix high sugar high WBC from steroid , will monitor
[2018-04-04] MEDS: Potassium Chloride 10 mEq ER Tab PO SCH (09:22)
[2018-04-04] MEDS: guaiFENesin 600 mg ER Tab PO SCH ×2 (10:06→18:24)
[2018-04-04] MEDS: Pantoprazole 40 mg EC Tab PO SCH (10:06)
[2018-04-04] MEDS: MethylPREDNISolone 40 mg Vial IVP SCH (10:07)
--- NOTE | 2018-04-04 12:20 | CP.PCM.PN ---
Subjective - Date & Time of Evaluation Date of Evaluation: 04/04/18 Time of Evaluation: 10:40 - Subjective Subjective: Patient seen and examined Denies cough, denies fever chills, denies chest pain Lying comfortably in no distress Good appetite Objective - Vital Signs/Intake and Output Vital Signs (last 24 hours): Temp Pulse Resp BP Pulse Ox 97.9 F 75 18 166/70 H 95 04/04/18 09:00 04/04/18 09:00 04/04/18 09:00 04/04/18 10:28 04/04/18 09:00 Intake and Output: 04/04/18 04/04/18 06:59 18:59 Intake Total 550 Output Total 700 Balance -150 - Medications Medications: Current Medications Albuterol/Ipratropium (Duoneb 3 Mg/0.5 Mg (3 Ml) Ud) 3 ml INH RQ4 [facility] Last Admin: 04/04/18 11:50 Dose: 3 ml Amlodipine Besylate (Norvasc) 10 mg PO DAILY [facility] Last Admin: 04/04/18 10:06 Dose: 10 mg Aspirin (Ecotrin) 81 mg PO DAILY [facility] Last Admin: 04/04/18 10:06 Dose: 81 mg Azithromycin (Zithromax) 250 mg PO DAILY [facility]; Protocol Stop: 04/07/18 10:01 Last Admin: 04/04/18 10:06 Dose: 250 mg Clopidogrel Bisulfate (Plavix) 75 mg PO DAILY [facility] Last Admin: 04/04/18 10:06 Dose: 75 mg Enoxaparin Sodium (Lovenox) 30 mg SC DAILY [facility] Furosemide (Lasix) 20 mg PO DAILY [facility] Last Admin: 04/04/18 10:28 Dose: 20 mg Guaifenesin (Robitussin) 200 mg PO Q4H PRN PRN Reason: Cough and congestion Last Admin: 04/01/18 13:08 Dose: 200 mg Guaifenesin (Mucinex La) 600 mg PO BID [facility] Last Admin: 04/04/18 10:06 Dose: 600 mg Piperacillin Sod/Tazobactam Sod (Zosyn 2.25 Gm Iv Premix) 2.25 gm in 50 mls @ 100 mls/hr IVPB Q6H [facility]; Protocol Last Admin: 04/04/18 06:20 Dose: 100 mls/hr Insulin Aspart (Novolog) 0 unit SC ACHS [facility]; Protocol Last Admin: 04/04/18 07:14 Dose: Not Given Levothyroxine Sodium (Synthroid) 75 mcg PO DAILY@0630 [facility] Last Admin: 04/04/18 06:20 Dose: 75 mcg Losartan Potassium (Cozaar) 100 mg PO DAILY [facility] Last Admin: 04/04/18 10:06 Dose: 100 mg Methylprednisolone (Solu-Medrol) 40 mg IVP Q12 [facility] Last Admin: 04/04/18 10:07 Dose: 40 mg Metoprolol Tartrate (Lopressor) 12.5 mg PO BID [facility] Last Admin: 04/04/18 10:21 Dose: 12.5 mg Pantoprazole Sodium (Protonix Ec Tab) 40 mg PO DAILY [facility] Last Admin: 04/04/18 10:06 Dose: 40 mg Potassium Chloride (Klor-Con 10) 10 meq PO BRK [facility] Last Admin: 04/04/18 09:22 Dose: 10 meq Rosuvastatin Calcium (Crestor) 5 mg PO HS [facility] Last Admin: 04/03/18 22:16 Dose: 5 mg - Labs Labs: 04/03/18 07:04 04/03/18 07:04 PT 10.4 SECONDS (9.7-12.2) 03/31/18 08:28 INR 1.0 03/31/18 08:28 APTT 26 SECONDS (21-34) 03/31/18 08:28 - Head Exam Head Exam: ATRAUMATIC, NORMOCEPHALIC - ENT Exam ENT Exam: Mucous Membranes Moist - Neck Exam Neck Exam: Normal Inspection - Respiratory Exam Respiratory Exam: Clear to Ausculation Bilateral - Cardiovascular Exam Cardiovascular Exam: REGULAR RHYTHM - GI/Abdominal Exam GI & Abdominal Exam: Soft, Normal Bowel Sounds Assessment and Plan (1) COPD exacerbation Assessment & Plan: Continue nebulizer treatment Start tapering steroids Elevated white count secondary to steroids Switch to p.o. antibiotics for now Follow-up chest x-ray Pro-calcitonin level Status: Acute (2) Respiratory distress, acute Status: Acute
--- NOTE | 2018-04-04 15:34 | CP.PCM.PN ---
Subjective - Date & Time of Evaluation Date of Evaluation: 04/03/18 Time of Evaluation: 15:10 - Subjective Subjective: Patient seen and evaluated Patient is confused S/P RCA stent PMHX: HTN, anxiety, cholesterol Shx: denies All: NKDA sochx: denies smoking, alcohol or drug use Fhx: denies Review of Systems - Review of Systems All systems: reviewed and no additional remarkable complaints except Review of Systems: as per HPI Physical Exam - Constitutional Appears: Non-toxic, No Acute Distress - Head Exam Head Exam: ATRAUMATIC, NORMAL INSPECTION, NORMOCEPHALIC - Eye Exam Eye Exam: EOMI, Normal appearance - ENT Exam ENT Exam: Mucous Membranes Moist, Normal Exam - Neck Exam Neck exam: Positive for: Normal Inspection - Respiratory Exam Respiratory Exam: Clear to Auscultation Bilateral, NORMAL BREATHING PATTERN. absent: Rales, Rhonchi, Wheezes - Cardiovascular Exam Cardiovascular Exam: Tachycardia, REGULAR RHYTHM, +S1, +S2 - GI/Abdominal Exam GI & Abdominal Exam: Normal Bowel Sounds, Soft. absent: Distended, Tenderness - Extremities Exam Extremities exam: Positive for: normal inspection - Back Exam Back exam: NORMAL INSPECTION - Neurological Exam Neurological exam: Alert, CN II-XII Intact, Oriented x3 - Psychiatric Exam Psychiatric exam: Normal Affect, Normal Mood - Skin Skin Exam: Dry, Intact, Normal Color, Warm Assessment and Plan Non STEMI S/P RCA stent Altered mental status Objective - Vital Signs/Intake and Output Vital Signs (last 24 hours): Temp Pulse Resp BP Pulse Ox 97.9 F 75 18 166/70 H 95 04/04/18 09:00 04/04/18 09:00 04/04/18 09:00 04/04/18 10:28 04/04/18 09:00 Intake and Output: 04/04/18 04/04/18 06:59 18:59 Intake Total 550 530 Output Total 700 600 Balance -150 -70 - Medications Medications: Current Medications Albuterol/Ipratropium (Duoneb 3 Mg/0.5 Mg (3 Ml) Ud) 3 ml INH RQ4 [facility] Last Admin: 04/04/18 11:50 Dose: 3 ml Amlodipine Besylate (Norvasc) 10 mg PO DAILY [facility] Last Admin: 04/04/18 10:06 Dose: 10 mg Aspirin (Ecotrin) 81 mg PO DAILY [facility] Last Admin: 04/04/18 10:06 Dose: 81 mg Azithromycin (Zithromax) 250 mg PO DAILY [facility]; Protocol Stop: 04/07/18 10:01 Last Admin: 04/04/18 10:06 Dose: 250 mg Clopidogrel Bisulfate (Plavix) 75 mg PO DAILY [facility] Last Admin: 04/04/18 10:06 Dose: 75 mg Enoxaparin Sodium (Lovenox) 30 mg SC DAILY [facility] Furosemide (Lasix) 20 mg PO DAILY [facility] Last Admin: 04/04/18 10:28 Dose: 20 mg Guaifenesin (Robitussin) 200 mg PO Q4H PRN PRN Reason: Cough and congestion Last Admin: 04/01/18 13:08 Dose: 200 mg Guaifenesin (Mucinex La) 600 mg PO BID [facility] Last Admin: 04/04/18 10:06 Dose: 600 mg Piperacillin Sod/Tazobactam Sod (Zosyn 2.25 Gm Iv Premix) 2.25 gm in 50 mls @ 100 mls/hr IVPB Q6H [facility]; Protocol Last Admin: 04/04/18 13:15 Dose: 100 mls/hr Insulin Aspart (Novolog) 0 unit SC ACHS [facility]; Protocol Last Admin: 04/04/18 13:14 Dose: 3 unit Levothyroxine Sodium (Synthroid) 75 mcg PO DAILY@0630 [facility] Last Admin: 04/04/18 06:20 Dose: 75 mcg Losartan Potassium (Cozaar) 100 mg PO DAILY [facility] Last Admin: 04/04/18 10:06 Dose: 100 mg Methylprednisolone (Solu-Medrol) 40 mg IVP DAILY [facility] Metoprolol Tartrate (Lopressor) 12.5 mg PO BID [facility] Last Admin: 04/04/18 10:21 Dose: 12.5 mg Pantoprazole Sodium (Protonix Ec Tab) 40 mg PO DAILY [facility] Last Admin: 04/04/18 10:06 Dose: 40 mg Potassium Chloride (Klor-Con 10) 10 meq PO BRK [facility] Last Admin: 04/04/18 09:22 Dose: 10 meq Rosuvastatin Calcium (Crestor) 5 mg PO HS [facility] Last Admin: 04/03/18 22:16 Dose: 5 mg - Labs Labs: 04/03/18 07:04 04/03/18 07:04 PT 10.4 SECONDS (9.7-12.2) 03/31/18 08:28 INR 1.0 03/31/18 08:28 APTT 26 SECONDS (21-34) 03/31/18 08:28
[2018-04-05] MEDS: Albuterol-Ipratrop 3 mg / 0.5 (3 ml) UD INH SCH
[2018-04-05] MEDS: Piperacill/Tazo 2.25gm in Dex 2.25 GM/50 ML BAG IVPB SCH ×2 (00:08→06:09)
[2018-04-05 01:33] VITALS: RESP 20
[2018-04-05] MEDS: Levothyroxine 75 MCG TAB PO SCH (06:09)
[2018-04-05] MEDS: (Novolog) Insulin Aspart, Recombinant 100 u/ml 10 ml vial SC SCH ×3 (08:57→20:06)
[2018-04-05] MEDS: Potassium Chloride 10 mEq ER Tab PO SCH (09:21)
[2018-04-05] MEDS: guaiFENesin 600 mg ER Tab PO SCH ×2 (09:21→20:06)
[2018-04-05] MEDS: Pantoprazole 40 mg EC Tab PO SCH (09:21)
[2018-04-05] MEDS ORDERED: Enoxaparin 30 mg Syringe SC SCH (10:00)
[2018-04-05] MEDS ORDERED: MethylPREDNISolone 40 mg Vial IVP SCH (10:00)
--- NOTE | 2018-04-05 10:09 | CP.PCM.PN ---
Subjective - Date & Time of Evaluation Date of Evaluation: 04/05/18 Time of Evaluation: 10:00 - Subjective Subjective: chart review BP om high side no new labs yet no unusual event patient accepted to subacute Patient seen calm, seated on chair, daughter with her no chest pain no cough oriented awake unsteady gait still with slurred speech no other complaints discussed plan of discharge daughter aware Objective - Vital Signs/Intake and Output Vital Signs (last 24 hours): Temp Pulse Resp BP Pulse Ox 97.4 F L 76 20 170/84 H 98 04/05/18 08:06 04/05/18 08:14 04/05/18 08:06 04/05/18 08:06 04/05/18 08:06 - Medications Medications: Current Medications Amlodipine Besylate (Norvasc) [address] [facility] Last Admin: 04/05/18 09:21 Dose: 10 mg Aspirin (Ecotrin) [address] [facility] Last Admin: 04/05/18 09:21 Dose: 81 mg Azithromycin (Zithromax) [address] [facility]; Protocol Stop: 04/07/18 10:01 Last Admin: 04/05/18 09:20 Dose: 250 mg Clopidogrel Bisulfate (Plavix) [address] [facility] Last Admin: 04/05/18 09:21 Dose: 75 mg Enoxaparin Sodium (Lovenox) [address] [facility] Last Admin: 04/05/18 09:21 Dose: 30 mg Furosemide (Lasix) [address] [facility] Last Admin: 04/04/18 10:28 Dose: 20 mg Guaifenesin (Robitussin) 200 mg PO Q4H PRN PRN Reason: Cough and congestion Last Admin: 04/01/18 13:08 Dose: 200 mg Guaifenesin (Mucinex La) [address] [facility] Last Admin: 04/05/18 09:21 Dose: 600 mg Piperacillin Sod/Tazobactam Sod (Zosyn 2.25 Gm Iv Premix) 2.25 gm in 50 mls @ 100 mls/hr IVPB Q6H [facility]; Protocol Last Admin: 04/05/18 06:09 Dose: 100 mls/hr Insulin Aspart (Novolog) [address] [facility]; Protocol Last Admin: 04/05/18 08:57 Dose: Not Given Levothyroxine Sodium (Synthroid) 75 mcg PO DAILY@0630 [facility] Last Admin: 04/05/18 06:09 Dose: 75 mcg Losartan Potassium (Cozaar) [address] [facility] Last Admin: 04/05/18 09:21 Dose: 100 mg Methylprednisolone (Solu-Medrol) [address] [facility] Last Admin: 04/05/18 09:21 Dose: 40 mg Metoprolol Tartrate (Lopressor) 12.[address] [facility] Last Admin: 04/05/18 09:21 Dose: 12.5 mg Pantoprazole Sodium (Protonix Ec Tab) [address] [facility] Last Admin: 04/05/18 09:21 Dose: 40 mg Potassium Chloride (Klor-Con 10) [address] [facility] Last Admin: 04/05/18 09:21 Dose: 10 meq Rosuvastatin Calcium (Crestor) [address] [facility] Last Admin: 04/04/18 22:10 Dose: 5 mg - Labs Labs: 04/03/18 07:04 04/03/18 07:04 PT 10.4 SECONDS (9.7-12.2) 03/31/18 08:28 INR 1.0 03/31/18 08:28 APTT 26 SECONDS (21-34) 03/31/18 08:28 - Constitutional Appears: Non-toxic, No Acute Distress - Head Exam Head Exam: ATRAUMATIC, NORMOCEPHALIC - Eye Exam Eye Exam: Normal appearance - ENT Exam ENT Exam: Mucous Membranes Moist - Respiratory Exam Respiratory Exam: Clear to Ausculation Bilateral, NORMAL BREATHING PATTERN - Cardiovascular Exam Cardiovascular Exam: REGULAR RHYTHM - GI/Abdominal Exam GI & Abdominal Exam: Soft, Normal Bowel Sounds. absent: Tenderness - Extremities Exam Extremities Exam: Full ROM, Normal Capillary Refill. absent: Joint Swelling, Pedal Edema, Tenderness - Neurological Exam Neurological Exam: Alert, Awake, Oriented x3 - Psychiatric Exam Psychiatric exam: Normal Affect, Normal Mood - Skin Skin Exam: Intact, Normal Color Assessment and Plan - Assessment and Plan (Free Text) Assessment: patient with CVA= with right sided weakness for subacute therapy hypertension controll CAD post stent on plavix aspirin Pneumonia- improving to complete antibiotic high sugar high wbc -on steroid taper and stop debility for suba cute
--- NOTE | 2018-04-05 15:00 | CP.PCM.PN ---
Subjective - Date & Time of Evaluation Date of Evaluation: 04/05/18 Time of Evaluation: 13:00 - Subjective Subjective: Patient seen and examined. Lying comfortably in no acute distress Afebrile Denies shortness of breath, denies cough, denies fever chills Stable from pulmonary standpoint Possible transfer to rehab Follow-up chest x-ray Taper steroids Objective - Vital Signs/Intake and Output Vital Signs (last 24 hours): Temp Pulse Resp BP Pulse Ox 97.4 F L 76 20 147/68 98 04/05/18 08:06 04/05/18 08:14 04/05/18 08:06 04/05/18 12:09 04/05/18 08:06 - Medications Medications: Current Medications Amlodipine Besylate (Norvasc) 10 mg PO DAILY [facility] Last Admin: 04/05/18 09:21 Dose: 10 mg Aspirin (Ecotrin) 81 mg PO DAILY [facility] Last Admin: 04/05/18 09:21 Dose: 81 mg Azithromycin (Zithromax) 250 mg PO DAILY [facility]; Protocol Stop: 04/07/18 10:01 Last Admin: 04/05/18 09:20 Dose: 250 mg Clopidogrel Bisulfate (Plavix) 75 mg PO DAILY [facility] Last Admin: 04/05/18 09:21 Dose: 75 mg Enoxaparin Sodium (Lovenox) 30 mg SC DAILY [facility] Last Admin: 04/05/18 09:21 Dose: 30 mg Furosemide (Lasix) 20 mg PO DAILY [facility] Last Admin: 04/05/18 10:49 Dose: 20 mg Guaifenesin (Robitussin) 200 mg PO Q4H PRN PRN Reason: Cough and congestion Last Admin: 04/01/18 13:08 Dose: 200 mg Guaifenesin (Mucinex La) 600 mg PO BID [facility] Last Admin: 04/05/18 09:21 Dose: 600 mg Insulin Aspart (Novolog) 0 unit SC [facility]; Protocol Last Admin: 04/05/18 12:32 Dose: Not Given Levothyroxine Sodium (Synthroid) 75 mcg PO DAILY@0630 [facility] Last Admin: 04/05/18 06:09 Dose: 75 mcg Losartan Potassium (Cozaar) 100 mg PO DAILY [facility] Last Admin: 04/05/18 09:21 Dose: 100 mg Metoprolol Tartrate (Lopressor) 12.5 mg PO BID [facility] Last Admin: 04/05/18 09:21 Dose: 12.5 mg Pantoprazole Sodium (Protonix Ec Tab) 40 mg PO DAILY [facility] Last Admin: 04/05/18 09:21 Dose: 40 mg Potassium Chloride (Klor-Con 10) 10 meq PO BRK [facility] Last Admin: 04/05/18 09:21 Dose: 10 meq Rosuvastatin Calcium (Crestor) 5 mg PO HS [facility] Last Admin: 04/04/18 22:10 Dose: 5 mg - Labs Labs: 04/03/18 07:04 04/03/18 07:04 PT 10.4 SECONDS (9.7-12.2) 03/31/18 08:28 INR 1.0 03/31/18 08:28 APTT 26 SECONDS (21-34) 03/31/18 08:28 Assessment and Plan (1) COPD exacerbation Status: Acute (2) Respiratory distress, acute Status: Acute
[2018-04-05 18:11] VITALS: BP 132/77; PULSE 68; TEMP 98.2; O2SAT 97
--- NOTE | 2018-04-05 22:21 | CARDCATH ---
PROCEDURE DATE: 03/30/2018 PROCEDURES: 1. Left heart catheterization. 2. Coronary angiogram. REFERRING PHYSICIAN: . PERFORMING PHYSICIAN: Cristobal Eldridge MD CLINICAL INDICATIONS: 1. Chest pain. 2. Non-ST elevation myocardial infarction. 3. Hypertension. 4. Coronary artery disease. 5. Hyperlipidemia. DESCRIPTION OF PROCEDURE: After informed consent, the patient was prepped and draped in the usual sterile fashion. A 2% lidocaine was given in the right groin for local anesthesia. Using micropuncture technique, 6-Angolan sheath was introduced into right common femoral artery. A JR4 6-Angolan diagnostic catheter was inserted into the left ventricle across the aortic valve. LV end-diastolic pressure measured. Contrast was injected and LV angiogram was done. Then, the catheter was pulled back across the aortic valve. The gradient across the aortic valve was measured. Then, the catheter was engaged into the right coronary artery. Contrast was injected and right coronary angiogram was done. Then, the catheter was exchanged to 6-Angolan [place] catheter. [place] catheter was engaged into left main coronary artery. Contrast injected and left coronary angiogram was done. The patient tolerated the procedure very well. Postprocedure radiological supervision and radiological interpretation of the coronary imaging was done. FINDINGS: 1. Left main coronary artery is patent. 2. Proximal LAD and mid LAD are patent. Distal LAD has a 50% nonobstructive stenosis. Diagonal branches are patent. 3. Left circumflex has proximal 40% stenosis. Obtuse marginal branches are patent. 4. Right coronary artery is dominant. Right coronary artery has a proximal 85% long stenosis. Mid and distal right coronary artery and PDA are patent. 5. LV ejection fractions are approximately 30%. Anterior and apical wall hypokinesis. EDP is 17. No gradient across the aortic valve. IMPRESSION: 1. Significant right coronary artery disease as described above. 2. Decreased left ventricular function with ejection fraction of 30%. RECOMMENDATIONS: Recommend coronary intervention of the right coronary artery. Cristobal Eldridge MD
--- NOTE | 2018-04-05 23:20 | CP.PCM.PN ---
Subjective - Date & Time of Evaluation Date of Evaluation: 04/05/18 Time of Evaluation: 14:05 - Subjective Subjective: Patient seen and evaluated Patient is confused S/P RCA stent PMHX: HTN, anxiety, cholesterol Shx: denies All: NKDA sochx: denies smoking, alcohol or drug use Fhx: denies Review of Systems - Review of Systems All systems: reviewed and no additional remarkable complaints except Review of Systems: as per HPI Physical Exam - Constitutional Appears: Non-toxic, No Acute Distress - Head Exam Head Exam: ATRAUMATIC, NORMAL INSPECTION, NORMOCEPHALIC - Eye Exam Eye Exam: EOMI, Normal appearance - ENT Exam ENT Exam: Mucous Membranes Moist, Normal Exam - Neck Exam Neck exam: Positive for: Normal Inspection - Respiratory Exam Respiratory Exam: Clear to Auscultation Bilateral, NORMAL BREATHING PATTERN. absent: Rales, Rhonchi, Wheezes - Cardiovascular Exam Cardiovascular Exam: Tachycardia, REGULAR RHYTHM, +S1, +S2 - GI/Abdominal Exam GI & Abdominal Exam: Normal Bowel Sounds, Soft. absent: Distended, Tenderness - Extremities Exam Extremities exam: Positive for: normal inspection - Back Exam Back exam: NORMAL INSPECTION - Neurological Exam Neurological exam: Alert, CN II-XII Intact, Oriented x3 - Psychiatric Exam Psychiatric exam: Normal Affect, Normal Mood - Skin Skin Exam: Dry, Intact, Normal Color, Warm Assessment and Plan Non STEMI S/P RCA stent Altered mental status Objective - Vital Signs/Intake and Output Vital Signs (last 24 hours): Temp Pulse Resp BP Pulse Ox 98.2 F 68 20 132/77 97 04/05/18 16:00 04/05/18 16:00 04/05/18 16:00 04/05/18 16:00 04/05/18 16:00 - Labs Labs: 04/03/18 07:04 04/03/18 07:04 PT 10.4 SECONDS (9.7-12.2) 03/31/18 08:28 INR 1.0 03/31/18 08:28 APTT 26 SECONDS (21-34) 03/31/18 08:28
--- NOTE | 2018-04-06 13:10 | CP.PCM.DIS ---
Provider - Provider Date of Admission: 03/25/18 21:47 Attending physician: Libia Brady MD Consults: 03/25/18 22:01 Pulmonology Consult Routine Comment: Consulting Provider: Jeffrey Colon Consulting Physician: Jeffrey Colon Reason for Consult: copd 03/26/18 08:00 Inpatient [employer] Referral Routine Comment: has exertional dyspnea Physician Instructions: Reason For Exam: Dx. acute respiratory distress 03/27/18 08:58 Cardiology Consult Routine Comment: inverted t wave Consulting Provider: Cristobal Eldridge Consulting Physician: Cristobal Eldridge Reason for Consult: inverted t wave 03/27/18 11:17 Critical Care Consult Stat Comment: Consulting Provider: Yong Prasad Consulting Physician: Yong Prasad Reason for Consult: NSTEMI, per Dr. 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 Spent in preparation of Discharge (in minutes): 30 Hospital Course - Lab Results Lab Results: Micro Results 03/25/18 21:31 Blood Blood Culture - Final NO GROWTH AFTER 5 DAYS 03/25/18 21:31 Blood Gram Stain - Final TEST NOT PERFORMED 03/25/18 21:19 Blood Blood Culture - Final NO GROWTH AFTER 5 DAYS 03/25/18 21:19 Blood Gram Stain - Final TEST NOT PERFORMED 03/29/18 16:55 Naris MRSA Culture - Final MRSA NOT DETECTED 03/26/18 06:07 Nose MRSA Culture - Final MRSA NOT DETECTED 03/26/18 05:31 Naris MRSA Culture (Admit) - Final MRSA NOT DETECTED Most Recent Lab Values WBC 18.1 K/uL (4.8-10.8) H 04/03/18 07:04 RBC 3.37 Mil/uL (3.80-5.20) L 04/03/18 07:04 Hgb 10.6 g/dL (11.0-16.0) L 04/03/18 07:04 Hct 31.6 % (34.0-47.0) L 04/03/18 07:04 MCV 94.0 fL (81.0-99.0) 04/03/18 07:04 MCH 31.4 pg (27.0-31.0) H 04/03/18 07:04 MCHC 33.4 g/dL (33.0-37.0) 04/03/18 07:04 RDW 13.6 % (11.5-14.5) 04/03/18 07:04 Plt Count 362 K/uL (130-400) 04/03/18 07:04 MPV 8.8 fL (7.2-11.7) 04/03/18 07:04 Neut % (Auto) 92.6 % (50.0-75.0) H 04/03/18 07:04 Lymph % (Auto) 2.3 % (20.0-40.0) L 04/03/18 07:04 Amelia % (Auto) 4.6 % (0.0-10.0) 04/03/18 07:04 Eos % (Auto) 0.1 % (0.0-4.0) 04/03/18 07:04 Baso % (Auto) 0.4 % (0.0-2.0) 04/03/18 07:04 Neut # (Auto) 16.8 K/uL (1.8-7.0) H 04/03/18 07:04 Lymph # (Auto) 0.4 K/uL (1.0-4.3) L 04/03/18 07:04 Amelia # (Auto) 0.8 K/uL (0.0-0.8) 04/03/18 07:04 Eos # (Auto) 0.0 K/uL (0.0-0.7) 04/03/18 07:04 Baso # (Auto) 0.1 K/uL (0.0-0.2) 04/03/18 07:04 Neutrophils % (Manual) 94 % (50-75) H 04/03/18 07:04 Band Neutrophils % 1 % (0-2) 03/31/18 08:28 Lymphocytes % (Manual) 2 % (20-40) L 04/03/18 07:04 Monocytes % (Manual) 4 % (0-10) 04/03/18 07:04 Eosinophils % (Manual) 8 % (0-4) H 03/31/18 08:28 Platelet Estimate Normal (NORMAL) 04/03/18 07:04 Large Platelets Present 03/29/18 05:50 Giant Platelets Present 03/30/18 07:12 RBC Morphology Normal 04/03/18 07:04 Polychromasia Slight 03/29/18 05:50 Hypochromasia (manual) Slight 03/30/18 07:12 Poikilocytosis (manual Slight 03/30/18 07:12 Anisocytosis (manual) Slight 03/30/18 07:12 Target Cells Slight 03/30/18 07:12 PT 10.4 SECONDS (9.7-12.2) 03/31/18 08:28 INR 1.0 03/31/18 08:28 APTT 26 SECONDS (21-34) 03/31/18 08:28 Puncture Site Rb 03/25/18 21:13 pCO2 40 mm/Hg (35-45) 03/25/18 21:13 pO2 323 mm/Hg (80-100) H 03/25/18 21:13 HCO3 23.4 mmol/L (21-28) 03/25/18 21:13 ABG pH 7.37 (7.35-7.45) 03/25/18 21:13 ABG Total CO2 24.3 mmol/L (22-28) 03/25/18 21:13 ABG O2 Saturation 99.2 % (95-98) H 03/25/18 21:13 ABG Base Excess -2.0 mmol/L (-2.0-3.0) 03/25/18 21:13 Caesar Test Pos 03/25/18 21:13 ABG Potassium 2.8 mmol/L (3.6-5.2) L 03/25/18 21:13 A-a O2 Difference 340.0 mm/Hg 03/25/18 21:13 Respiratory Index 1.1 03/25/18 21:13 Sodium 140.0 mmol/l (132-148) 03/25/18 21:13 Chloride 108.0 mmol/L (98-107) H 03/25/18 21:13 Glucose 125 mg/dl (65-105) H 03/25/18 21:13 Lactate 2.0 mmol/L (0.7-2.1) 03/25/18 21:13 FiO2 100.0 % 03/25/18 21:13 Inspiratory BiPAP 12 03/25/18 21:13 Expiratory BiPAP 7 03/25/18 21:13 Sodium 140 mmol/L (132-148) 04/03/18 07:04 Potassium 3.6 mmol/L (3.6-5.2) 04/03/18 07:04 Chloride 106 mmol/L (98-107) 04/03/18 07:04 Carbon Dioxide 28 mmol/L (22-30) 04/03/18 07:04 Anion Gap 10 (10-20) 04/03/18 07:04 BUN 43 mg/dL (7-17) H 04/03/18 07:04 Creatinine 1.0 mg/dL (0.7-1.2) 04/03/18 07:04 Est GFR ( Amer) > 60 04/03/18 07:04 Est GFR (Non-Af Amer) 55 04/03/18 07:04 POC Glucose (mg/dL) 114 mg/dL (65-110) H 04/05/18 21:43 Random Glucose 155 mg/dL (65-105) H D 04/03/18 07:04 Hemoglobin A1c 5.4 % (4.2-6.5) 04/03/18 07:04 Calcium 9.6 mg/dl (8.6-10.4) 04/03/18 07:04 Phosphorus 3.5 mg/dL (2.5-4.5) 03/31/18 08:28 Magnesium 2.3 mg/dL (1.6-2.3) 04/03/18 07:04 Total Bilirubin 0.7 mg/dL (0.2-1.3) 04/03/18 07:04 AST 38 U/L (14-36) H 04/03/18 07:04 ALT 57 U/L (9-52) H 04/03/18 07:04 Alkaline Phosphatase 71 U/L (38-126) 04/03/18 07:04 Total Creatine Kinase 53 U/L (30-135) 03/28/18 04:03 CK-MB (Mass) 2.94 ng/mL (0.0-3.38) 03/28/18 04:03 Troponin I 0.5090 ng/mL (0.00-0.120) H* 03/28/18 04:03 NT-Pro-B Natriuret Pep 178 pg/mL (0-900) 03/25/18 21:03 Total Protein 6.3 g/dL (6.3-8.3) 04/03/18 07:04 Albumin 3.6 g/dL (3.5-5.0) 04/03/18 07:04 Globulin 2.8 gm/dL (2.2-3.9) 04/03/18 07:04 Albumin/Globulin Ratio 1.3 (1.0-2.1) 04/03/18 07:04 Vitamin B12 920 pg/mL (239-931) 04/01/18 11:34 Folate 16.9 ng/mL 04/01/18 11:34 Free T4 0.57 ng/dL (0.78-2.19) L 04/01/18 11:34 TSH 3rd Generation 29.40 mIU/L (0.46-4.68) H 04/01/18 11:34 Prolactin 15.6 ng/mL (3.0-18.9) 04/01/18 11:34 Arterial Blood Potassium 2.8 mmol/L (3.6-5.2) L 03/25/18 21:13 Urine Color Yellow (YELLOW) 03/26/18 16:00 Urine Clarity Hazy (Clear) 03/26/18 16:00 Urine pH 5.0 (5.0-8.0) 03/26/18 16:00 Ur Specific Street[place] 1.024 (1.003-1.030) 03/26/18 16:00 Urine Protein 1+ mg/dL (NEGATIVE) H 03/26/18 16:00 Urine Glucose (UA) 3+ mg/dL (Normal) H 03/26/18 16:00 Urine Ketones Negative mg/dL (NEGATIVE) 03/26/18 16:00 Urine Blood Negative (NEGATIVE) 03/26/18 16:00 Urine Nitrate Negative (NEGATIVE) 03/26/18 16:00 Urine Bilirubin Negative (NEGATIVE) 03/26/18 16:00 Urine Urobilinogen Normal mg/dL (0.2-1.0) 03/26/18 16:00 Ur Leukocyte Esterase Neg Haley/uL (Negative) 03/26/18 16:00 Urine WBC (Auto) 1 /hpf (0-5) 03/26/18 16:00 Urine RBC (Auto) 1 /hpf (0-3) 03/26/18 16:00 Ur Squamous Epith Cells 2 /hpf (0-5) 03/26/18 16:00 Uric Acid Crystals Occ /hpf (<OCC) H 03/26/18 16:00 Urine Bacteria Rare (<OCC) 03/26/18 16:00 Influenza Typ A,B (EIA) Negative for flu a/b (NEGATIVE) 03/25/18 21:25 - Hospital Course Hospital Course: admitted for respiratory distress CXR -emphysema- treated for copd exacerbation- with antibiotic, respiratory treatment, steroid - got better, found to have NSTEMI-had stent , plavix and aspirin, and then had CVA- with right sided weaknessa and slurring of speech, had pneumonia , treated and improved- discharged to subacute Discharge Exam - Head Exam Head Exam: ATRAUMATIC, NORMOCEPHALIC - Eye Exam Eye Exam: Normal appearance - ENT Exam ENT Exam: Mucous Membranes Moist - Respiratory Exam Respiratory Exam: Clear to PA & Lateral, NORMAL BREATHING PATTERN - Cardiovascular Exam Cardiovascular Exam: REGULAR RHYTHM - GI/Abdominal Exam GI & Abdominal Exam: Normal Bowel Sounds, Soft. absent: Tenderness - Extremities Exam Extremities exam: full ROM - Neurological Exam Neurological exam: Alert, Oriented x3, Reflexes Normal (with mild weakness right face , with slurring of speech ) Discharge Plan - Follow Up Plan Condition: FAIR Disposition: REHAB FACILITY/REHAB UNIT Instructions: Exacerbation of COPD (DC), Medicines for Chronic Obstructive Pulmonary Disease (COPD) Referrals: Jeffrey Colon MD [Staff Provider] - Cristobal Eldridge MD [Staff Provider] - Libia Brady MD [Medical Doctor] - Andrew Castro MD [Staff Provider] -
--- NOTE | 2018-04-07 08:40 | EEG ---
DATE: ELECTROENCEPHALOGRAM REPORT This is a 16-channel electroencephalogram of awake and confused adult. During the study, photic stimulation was performed. Hyperventilation was not performed. The resting electroencephalogram consists of 20 to 30 microvolt diffuse theta mixed with low alpha activity seen at parietal and occipital leads. Anterior fast activities are composed with a 2 to 3 Hz delta activity seen at frontal and central leads. Intermittent movement artifact contaminated the background rhythm. The photic stimulation did not evoke driving response noted at 2 to 20 Hz. IMPRESSION: This is a normal electroencephalogram for awake and drowsy adult. During the study, neither electroencephalographic paroxysmal activities nor focal slowing noted. Andrew Castro MD
== END 2018-04-05 22:26 | DRG 981 ==
LOC: C.ER 20:46 → C.9E 21:47 → C.9I 22:32 → C.5S 03-26 06:51 → C.9I 03-27 12:56 → C.5S 03-29 13:31
PROVIDERS: ADMIT Internal Medicine; ATTEND Internal Medicine
PROC: 4A023N7 Measurement of Cardiac Sampling and Pressure, Left Heart, Percutaneous Approach (ICD-10-PCS; principal; 2018-03-30)
PROC: B2151ZZ Fluoroscopy of Left Heart using Low Osmolar Contrast (ICD-10-PCS; 2018-03-30)
PROC: B2111ZZ Fluoroscopy of Multiple Coronary Arteries using Low Osmolar Contrast (ICD-10-PCS; 2018-03-30)
PROC: 027044Z Dilation of Coronary Artery, One Artery with Drug-eluting Intraluminal Device, Percutaneous Endoscopic Approach (ICD-10-PCS; 2018-03-31)
DX: J44.1 Chronic obstructive pulmonary disease with (acute) exacerbation (principal); I21.4 Non-ST elevation (NSTEMI) myocardial infarction; I63.9 Cerebral infarction, unspecified; J18.9 Pneumonia, unspecified organism; I50.21 Acute systolic (congestive) heart failure; R64 Cachexia; Z68.1 Body mass index [BMI] 19.9 or less, adult; G81.91 Hemiplegia, unspecified affecting right dominant side; E78.5 Hyperlipidemia, unspecified; E87.6 Hypokalemia; F41.1 Generalized anxiety disorder; D64.9 Anemia, unspecified; I25.10 Atherosclerotic heart disease of native coronary artery without angina pectoris; I69.328 Other speech and language deficits following cerebral infarction; T38.0X5A Adverse effect of glucocorticoids and synthetic analogues, initial encounter; I11.0 Hypertensive heart disease with heart failure

== ENCOUNTER 2018-04-09 18:54 | Inpatient (IN) | payer MEDICARE ==
[2018-04-09 18:55] VITALS: BMI 19.4
[2018-04-09] MEDS ORDERED: Iodixanol 320 MG/ML 100 ML BOTTLE IV ONE (19:08)
[2018-04-09 19:09] LABS: BASO # 0.1 K/uL (0.0-0.2); EOS # 0.7 K/uL (0.0-0.7)
[2018-04-09 19:12] LABS: BASO % 0.6 % (0.0-2.0); EOS % 4.4 % (0.0-4.0); HEMOGLOBIN 9.7 g/dL (11.0-16.0); LYMPH % 5.8 % (20.0-40.0); MEAN CORPUSCULAR HEMOGLOBIN 31.3 pg (27.0-31.0); MEAN CORPUSCULAR HGB CONC 32.1 g/dL (33.0-37.0); MEAN PLATELET VOLUME 7.9 fL (7.2-11.7); MONO # 0.8 K/uL (0.0-0.8); NEUT # 14.2 K/uL (1.8-7.0); NEUT % 84.2 % (50.0-75.0); RBC 3.11 Mil/uL (3.80-5.20); RED CELL DISTRIBUTION WIDTH 14.1 % (11.5-14.5); WHITE BLOOD COUNT 16.9 K/uL (4.8-10.8)
[2018-04-09 19:13] LABS: MEAN CELL VOLUME 97.3 fL (81.0-99.0); PLATELET COUNT 260 K/uL (130-400)
[2018-04-09 19:19] LABS: INR 1.1; PROTHROMBIN TIME 12.2 SECONDS (9.7-12.2)
[2018-04-09 19:30] LABS: ALB/GLOB RATIO 1.1 (1.0-2.1); ALBUMIN 2.8 g/dL (3.5-5.0); ALT/SGPT 31 U/L (9-52); AST/SGOT 38 U/L (14-36); BLOOD UREA NITROGEN 24 mg/dL (7-17); CALCIUM 8.3 mg/dl (8.6-10.4); GFR NON-AFRICAN AMERICAN > 60; HDL CHOLESTEROL 63 mg/dL (30-70)
[2018-04-09 19:33] LABS: LDL CHOLESTEROL 86 mg/dL (0-129)
--- NOTE | 2018-04-09 19:34 | C.PDOC ---
History Of Present Illness 67 year old female sent from [facility] and recently admitted for minor CVA with slurred speech. Patient suffered acute change of mental status and respiratory arrest. She was sitting normally with her family, stated that she felt hot, and then lost consciousness. Patient was intubated in the field and had an initial CO2 of 70. From April 01 to April 06 she admitted for respiratory distress and COPD exasperation. Patient had a non-STEMI elevation PR , had a stent placed, and was started on plavex and aspirin. Patient than had a CVA with right side weakness and had pneumonia that was treated with antibiotics. Time Seen by Provider: 04/09/18 19:01 Chief Complaint (Nursing): Respiratory Distress History Per: EMS, Family History/Exam Limitations: clinical condition (acute change in mental status) Onset/Duration Of Symptoms: Hrs Current Symptoms Are (Timing): Still Present Reports Recently: Hospitalized (for CVA and pneumonia) Additional History Per: EMS, Family, Prior Records Past Medical History Reviewed: Historical Data, Nursing Documentation, Vital Signs Vital Signs: Last Vital Signs Temp Pulse 108 H 04/09/18 18:58 Resp BP 141/102 H 04/09/18 18:58 Pulse Ox 100 04/09/18 18:58 - Medical History PMH: HTN Denies: Chronic Kidney Disease Surgical History: Coronary Stent - [facility] Procedures DILATE OF 1 COR ART WITH DRUG-ELUT INTRA, PERC ENDO APPROACH (03/25/18) FLUOROSCOPY OF LEFT HEART USING LOW OSMOLAR CONTRAST (03/25/18) FLUOROSCOPY OF MULT COR ART USING L OSM CONTRAST (03/25/18) MEASURE OF CARDIAC SAMPL & PRESSURE, L HEART, PERC APPROACH (03/25/18) Family History: States: Unknown Family Hx - Social History Hx Alcohol Use: No Hx Substance Use: No - Immunization History Hx Tetanus Toxoid Vaccination: No Hx Influenza Vaccination: No Hx Pneumococcal Vaccination: No Review Of Systems Review Of Systems: ROS cannot be obtained secondary to pt's inabilty to answer questions. Physical Exam - Physical Exam Appears: Other (unresponsive, flaccid) Skin: Normal Color, Warm, Dry Head: Atraumatic, Normacephalic Eye(s): bilateral: Other (mid-sized pupils, fixed, unresponsive) Chest: Symmetrical, No Deformity Respiratory: Other (Intubated with 7.5 ET tube 22cm to the lip, good air entry bilaterally) Gastrointestinal/Abdominal: Soft, No Tenderness Extremity: Other (lower extremities with c/c/e) Neurological/Psych: Other (unresponsive, flaccid) ED Course And Treatment - Laboratory Results Result Diagrams: 04/09/18 19:06 04/09/18 19:06 Lab Results: PT 12.2 SECONDS (9.7-12.2) 04/09/18 19:06 INR 1.1 04/09/18 19:06 APTT 36 SECONDS (21-34) H 04/09/18 19:06 Lab Interpretation: Abnormal ECG: Interpreted By Me ECG Rhythm: Sinus Tachycardia ECG Interpretation: Abnormal Rate From EC (lateral lead depressions c/w strain) O2 Sat by Pulse Oximetry: 100 Pulse Ox Interpretation: Normal - Radiology CXR: Interpreted by Me CXR Interpretation: Yes: Infiltrates, Other (+ diffuse patchy infiltrates vs metastesis) Progress Note: Labs ordered with UA for pateint. CTA of head and neck, Head CT, EKG, and chest portable ordered for patient. Reevaluation Time: 20:47 Reassessment Condition: Unchanged (remains unconscious, unresponsive pupils, flacid) - Physician Consult Information Outcome Of Conversation: 1854: Arrived ED- [facility] called. 1929: CT (non- contrast) no acute stroke. 2029: CTA shows no acute stroke. 2044: d/w Dr. Leo Willis- ICU, ok to icu. 2049: d/w Dr Fuentes- Neuro [employer]- NIHSS Stroke Scale 2 - Date/Time Evaluation Performed Date Performed: 04/09/18 When Was NIHSS Performed: Code Stroke - How Severe is the Stroke Level of Consciousness: 3=Unresponsive LOC to Questions: 2=Neither correct LOC to commands: 2=Neither correct Best Gaze: 0=Normal Visual: 0=No visual loss Facial: 0=Normal Motor Arm - Left: NA - Amputation, joint fusion Motor Arm - Right: NA - Amputation, joint fusion Motor Leg - Left: NA - Amputation, joint fusion Motor Leg - Right: NA - Amputation, joint fusion Limb Ataxia: 0=Absent Sensory: 0=Normal Best Language: 3=Mute Dysarthia: 0=Normal articulation Extinction & Inattention (Neglect): 0=Normal, no object Score: 10 rTPA Inclusion/Exclusion - Refusal of Treatment Patient Refused Treatment: No - Inclusion Criteria for Altepase Patient is 18 years or Older: Yes The Clinical Diagnosis of Ischemic Stroke That is Causing a Potentially Disabling Neurological Deficit: Yes Time of Onset is Well Established to be Less Than 270 Minute Before Treatment Would Begin: No Risk/Benefit Discussed With Patient/Family Member Present: No - Exclusion Criteria for Altepase Uncontrolled Hypertension at Time of Treatment (Systolic BP above 185 or Diastolic BP above 110 mmHg): Yes Less Than 3 Months Had a Recent: Stroke Active Internal Bleeding: No Known Bleeding Diathesis Including but Not Limited to: Platelets Below 100,000/mm,PTT Above 40 sec After Heparin Use, Current Use of Oral Anitcoagulant With INR Greater Than 1.7 or PT Greater Than 15 secs: No Evidence of an Intracranial Hemorrhage: No Evidence of Major Acute Infarct With Signs Greater Than 1/3 MCA Territory: Yes Suspicion of Subarachnoid Hemorrhage on Pretreatment Evaluation Even if CT Head Negative For Hemorrhage: No - Warning to TPA With Conditions Condition: Stroke Severity Too Severe (NIHSS greater than 22) Additional Condition (For 3-4.5 Hour Window): Any anticoagulant use prior to admission (Even if INR less than 1.7) (on plavix due to recent cardiac stent ) Medical Decision Making Medical Decision Making: Adm from 04/01-04/06 copd exacerbation, pna, CVA with subacute MRI findings and mild L body weakness and slurred speech residual, now acute loss of mental status, Code Stroke Head CT/CTA without acute findings besides lytic lesion L temporal/occipital area progressed from last week, and Mass in neck and upper chest CT suggesting metastatic dz. 2100: improved status- moving arms and legs, more reactive pupils, ? related to paralytics for intubation. Disposition Doctor Will See Patient In The: Hospital Counseled Patient/Family Regarding: Studies Performed, Diagnosis - Disposition Disposition: HOSPITALIZED Disposition Time: 20:54 Condition: GOOD Forms: [employer] (Pashto) - POA Core Measure Indicators: Code Stroke - Clinical Impression Clinical Impression: Change in mental status, Metastatic cancer - Scribe Statement The provider has reviewed the documentation as recorded by the Scribe (Aleena Pate) All medical record entries made by the Scribe were at my direction and personally dictated by me. I have reviewed the chart and agree that the record accurately reflects my personal performance of the history, physical exam, medical decision making, and the department course for this patient. I have also personally directed, reviewed, and agree with the discharge instructions and disposition.
[2018-04-09 19:49] LABS: ABG ALLEN TEST POS; ARTERIAL BLOOD GAS HCO3 24.3 mmol/L (21-28); ARTERIAL BLOOD GAS HEMOGLOBIN 9.3 g/dL (11.7-17.4); ARTERIAL BLOOD GAS O2 SAT 99.8 % (95-98); ARTERIAL BLOOD GAS PCO2 58 mm/Hg (35-45); ARTERIAL BLOOD GAS PH 7.27 (7.35-7.45); ARTERIAL BLOOD GAS PO2 319 mm/Hg (80-100); ARTERIAL BLOOD GAS TCO2 28.4 mmol/L (22-28)
[2018-04-09 19:53] LABS: BANDS 6 % (0-2); BASOPHIL 1 % (0-2); EOSINOPHIL 4 % (0-4); LYMPHOCYTE 11 % (20-40); MONOCYTE 2 % (0-10); NEUTROPHIL 76 % (50-75); PLATELET ESTIMATE NORMAL (NORMAL); TOTAL CELLS COUNTED 100
[2018-04-09] MEDS ORDERED: Labetalol 25mg/5ml Syringe IV STA (19:55)
[2018-04-09] MEDS ORDERED: Labetalol 300 MG in Dextrose 5% In Water 240 ML IV SCH (20:00)
[2018-04-09] MEDS ORDERED: Labetalol 5mg/ml (4ml) ONE (20:14)
[2018-04-09 20:42] LABS: BARBITURATES, UR NEGATIVE (NEGATIVE); BENZODIAZEPINES, UR NEGATIVE (NEGATIVE); OPIATES, UR NEGATIVE (NEGATIVE); PHENCYCLIDINE, UR NEGATIVE (NEGATIVE)
[2018-04-09] MEDS: Sodium Chloride 0.9% 1,000 ML IV SCH (20:45)
--- NOTE | 2018-04-09 21:10 | CP.PCM.CON ---
History of Present Illness - History of Present Illness History of Present Illness: 67 y/o female intubated by EMS. PAtient recently discharged from [facility]. ROS not avaialble as patient is intubated. per daughter, patient was doing well in rehab. While patient was eating, she was noted to have a hot flash like feeling and then difficulty breathing. NUrsing brought oxygen and called EMS. Patient was intuabted by EMS using paralytic. -Since patient was flacid, ER worked up for stroke. -Patient recevied labetalol for SBP near 150s -ICU consulted for evaluation. -neuro exam limited as patient still under the influence of paralytic -CT head reviewed Review of Systems - Review of Systems Systems not reviewed;Unavailable: Intubated Past Patient History - Infectious Disease Hx of Infectious Diseases: None - Past Medical History & Family History Past Medical History?: Yes - Past Social History Smoking Status: Never Smoked - CARDIAC Hx Hypertension: Yes - PULMONARY Hx Respiratory Disorders: No - NEUROLOGICAL Hx Neurological Disorder: No - HEENT Hx HEENT Problems: No - RENAL Hx Chronic Kidney Disease: No - ENDOCRINE/METABOLIC Hx Endocrine Disorders: No - HEMATOLOGICAL/ONCOLOGICAL Hx Blood Disorders: No - INTEGUMENTARY Hx Dermatological Problems: No - MUSCULOSKELETAL/RHEUMATOLOGICAL Hx Musculoskeletal Disorders: No Hx Falls: No - GASTROINTESTINAL Hx Gastrointestinal Disorders: No - GENITOURINARY/GYNECOLOGICAL Hx Genitourinary Disorders: No - PSYCHIATRIC Hx Substance Use: No - SURGICAL HISTORY Hx Coronary Stent: Yes - ANESTHESIA Hx Anesthesia: No Meds Allergies/Adverse Reactions: Allergies Allergy/AdvReac Type Severity Reaction Status Date / Time No Known Allergies Allergy Verified 03/25/18 20:59 - Medications Medications: Current Medications Labetalol HCl 300 mg/ Dextrose 300 mls @ 120 mls/hr IV .Q2H30M [facility]; Protocol Sodium Chloride (Sodium Chloride 0.9%) 1,000 mls @ 75 mls/hr IV .[id number] [facility] Physical Exam - Head Exam Head Exam: ATRAUMATIC - Eye Exam Pupil Exam: PERRL - ENT Exam ENT Exam: Mucous Membranes Moist - Neck Exam Neck exam: Negative for: Tenderness - Respiratory Exam Respiratory Exam: Clear to Auscultation Bilateral, NORMAL BREATHING PATTERN - Cardiovascular Exam Cardiovascular Exam: REGULAR RHYTHM, +S1, +S2, Systolic Murmur - GI/Abdominal Exam GI & Abdominal Exam: Normal Bowel Sounds, Soft. absent: Tenderness - Extremities Exam Extremities exam: Positive for: normal inspection. Negative for: pedal edema - Neurological Exam Neurological exam: Altered Results - Vital Signs Recent Vital Signs: Last Vital Signs Temp 98.0 F 04/09/18 19:35 Pulse 72 04/09/18 20:40 Resp 20 04/09/18 20:40 BP 136/85 04/09/18 20:40 Pulse Ox 100 04/09/18 20:57 - Labs Result Diagrams: 04/09/18 19:06 04/09/18 19:06 Labs: Laboratory Results - last 24 hr 04/09/18 04/09/18 04/09/18 18:58 19:06 19:06 WBC 16.9 H RBC 3.11 L Hgb 9.7 L Hct 30.3 L MCV 97.3 D MCH 31.3 H MCHC 32.1 L RDW 14.1 Plt Count 260 D MPV 7.9 Neut % (Auto) 84.2 H Lymph % (Auto) 5.8 L Darke % (Auto) 5.0 Eos % (Auto) 4.4 H Baso % (Auto) 0.6 Neut # (Auto) 14.2 H Lymph # (Auto) 1.0 Darke # (Auto) 0.8 Eos # (Auto) 0.7 Baso # (Auto) 0.1 Neutrophils % (Manual) 76 H Band Neutrophils % 6 H Lymphocytes % (Manual) 11 L Monocytes % (Manual) 2 Eosinophils % (Manual) 4 Basophils % (Manual) 1 Platelet Estimate Normal PT 12.2 INR 1.1 APTT 36 H Puncture Site pCO2 pO2 HCO3 ABG pH ABG Total CO2 ABG O2 Saturation ABG Base Excess ABG Hemoglobin ABG Carboxyhemoglobin POC ABG HHb (Measured) ABG Methemoglobin Caesar Test A-a O2 Difference Respiratory Index Hgb O2 Saturation Vent Mode Mechanical Rate FiO2 Tidal Volume PEEP Sodium Potassium Chloride Carbon Dioxide Anion Gap BUN Creatinine Est GFR ( Amer) Est GFR (Non-Af Amer) POC Glucose (mg/dL) 242 H Random Glucose Hemoglobin A1c Calcium Total Bilirubin AST ALT Alkaline Phosphatase Troponin I Total Protein Albumin Globulin Albumin/Globulin Ratio Triglycerides Cholesterol LDL Cholesterol Direct HDL Cholesterol Urine Opiates Screen Urine Methadone Screen Ur Barbiturates Screen Ur Phencyclidine Scrn Ur Amphetamines Screen U Benzodiazepines Scrn U Oth Cocaine Metabols U Cannabinoids Screen Blood Type Antibody Screen 04/09/18 04/09/18 04/09/18 19:06 19:06 19:06 WBC RBC Hgb Hct MCV MCH MCHC RDW Plt Count MPV Neut % (Auto) Lymph % (Auto) Darke % (Auto) Eos % (Auto) Baso % (Auto) Neut # (Auto) Lymph # (Auto) Darke # (Auto) Eos # (Auto) Baso # (Auto) Neutrophils % (Manual) Band Neutrophils % Lymphocytes % (Manual) Monocytes % (Manual) Eosinophils % (Manual) Basophils % (Manual) Platelet Estimate PT INR APTT Puncture Site pCO2 pO2 HCO3 ABG pH ABG Total CO2 ABG O2 Saturation ABG Base Excess ABG Hemoglobin ABG Carboxyhemoglobin POC ABG HHb (Measured) ABG Methemoglobin Caesar Test A-a O2 Difference Respiratory Index Hgb O2 Saturation Vent Mode Mechanical Rate FiO2 Tidal Volume PEEP Sodium 140 Potassium 3.5 L Chloride 108 H Carbon Dioxide 24 Anion Gap 12 BUN 24 H Creatinine 0.9 Est GFR ( Amer) > 60 Est GFR (Non-Af Amer) > 60 POC Glucose (mg/dL) Random Glucose 222 H D Hemoglobin A1c 5.4 Calcium 8.3 L Total Bilirubin 0.3 AST 38 H ALT 31 Alkaline Phosphatase 75 Troponin I 0.0880 Total Protein 5.4 L Albumin 2.8 L D Globulin 2.6 Albumin/Globulin Ratio 1.1 Triglycerides 75 Cholesterol 164 LDL Cholesterol Direct 86 HDL Cholesterol 63 Urine Opiates Screen Urine Methadone Screen Ur Barbiturates Screen Ur Phencyclidine Scrn Ur Amphetamines Screen U Benzodiazepines Scrn U Oth Cocaine Metabols U Cannabinoids Screen Blood Type O POSITIVE Antibody Screen Negative 04/09/18 04/09/18 19:45 20:02 WBC RBC Hgb Hct MCV MCH MCHC RDW Plt Count MPV Neut % (Auto) Lymph % (Auto) Darke % (Auto) Eos % (Auto) Baso % (Auto) Neut # (Auto) Lymph # (Auto) Darke # (Auto) Eos # (Auto) Baso # (Auto) Neutrophils % (Manual) Band Neutrophils % Lymphocytes % (Manual) Monocytes % (Manual) Eosinophils % (Manual) Basophils % (Manual) Platelet Estimate PT INR APTT Puncture Site Rba pCO2 58 H pO2 319 H HCO3 24.3 ABG pH 7.27 L ABG Total CO2 28.4 H ABG O2 Saturation 99.8 H ABG Base Excess -0.8 ABG Hemoglobin 9.3 L ABG Carboxyhemoglobin 2.1 H POC ABG HHb (Measured) 0.2 ABG Methemoglobin 1.6 Caesar Test Pos A-a O2 Difference 250.0 Respiratory Index 0.8 Hgb O2 Saturation 96.1 Vent Mode Prvc Mechanical Rate 16 FiO2 90.0 Tidal Volume 450 PEEP 5 Sodium Potassium Chloride Carbon Dioxide Anion Gap BUN Creatinine Est GFR ( Amer) Est GFR (Non-Af Amer) POC Glucose (mg/dL) Random Glucose Hemoglobin A1c Calcium Total Bilirubin AST ALT Alkaline Phosphatase Troponin I Total Protein Albumin Globulin Albumin/Globulin Ratio Triglycerides Cholesterol LDL Cholesterol Direct HDL Cholesterol Urine Opiates Screen Negative Urine Methadone Screen Negative Ur Barbiturates Screen Negative Ur Phencyclidine Scrn Negative Ur Amphetamines Screen Negative U Benzodiazepines Scrn Negative U Oth Cocaine Metabols Negative U Cannabinoids Screen Negative Blood Type Antibody Screen Assessment & Plan - Assessment and Plan (Free Text) Assessment: AMS: suspect 2nd paralytic, obtain MRI brain, obtain neurology input, CT head non-diagnostic -acute hypoxic respiratory failure([facility] check d-dimer, obtain CT chest, cannot rule out PE/DVT, continue ventilation to keep spo2 >92 and pH b/w 7.35-7.45, continue bronchodilaotrs and solumedrol -aspiration PNA: canseco cultuer, serial lactic, empiricial abx -lytic lesions on CT neck: obtain CT chest, suspect metastatic cancer, origination unknown, heme/onc consult -place NG tube -BGM q6hrs, ISS lispro -dvt ppx heparin SQ -PUD ppx pepcid There are multiple confounding variables affecting the diagnosis. -f/u pending CT chest, d-dimer, TSH - Date & Time Date: 04/09/18 Time: 21:16
[2018-04-09] MEDS ORDERED: Propofol 10 mg/ml 1,000 MG/100 ML VIAL IV PRN (22:13)
--- NOTE | 2018-04-09 23:19 | CP.PCM.HP ---
History of Present Illness - History of Present Illness History of Present Illness: 67.y.o. female with PMH Hypertension Anxiety CVA with mild weakness left side and slurred speech COPD with exacerbation admission last 2 weeks CAD with Stent last 2 weeks was discharged last week to subacute reports patient was doing good, ambulation and speech improving -no cough no fever no diarrhea no vomiting no chest pain - then suddenly patient had difficulty breathing , / respiratory distress and was intubated in the field. In ER - CXR CT head MRI doneshowed= labs showed high wbc with 6 bands Patient is subsequently admitted for further mangement PMH as above Surgery cardiac Stent last admission 2 weeks ago Present on Admission - Present on Admission Any Indicators Present on Admission: Yes History of DVT/PE: No History of Uncontrolled Diabetes: No Urinary Catheter: No Decubitus Ulcer Present: No - Notes: Notes:: CVA with right sided weakness and slurred speech, CAD Review of Systems - Review of Systems Systems not reviewed;Unavailable: Respiratory Distress (intubated sedated) - Constitutional Constitutional: Other (as per no fever, no chills no falls, no headache , no cough no chest pain, no abdominal pain /diarrhe, no other complaints, other than she is in subacute for rehab ) - EENT Eyes: Other (baseline no visual disturbances) Nose/Mouth/Throat: Other (as per , no colds no cough no sore throat no neck pain ) - Cardiovascular Cardiovascular: Other (as per - patient was not complaining of anything ) Past Patient History - Infectious Disease Hx of Infectious Diseases: None - Past Medical History & Family History Past Medical History?: Yes - Past Social History Smoking Status: Never Smoked Chewing Tobacco Use: No Cigar Use: No Alcohol: None Home Situation {Lives}: With Family - CARDIAC Hx Cardiac Disorders: Yes (CAD post stent 2 weeks ago) Hx Hypertension: Yes - PULMONARY Hx Respiratory Disorders: No Hx Chronic Obstructive Pulmonary Disease (COPD): Yes Hx Emphysema: Yes - NEUROLOGICAL Hx Neurological Disorder: No HX Cerebrovascular Accident: Yes - HEENT Hx HEENT Problems: No - RENAL Hx Chronic Kidney Disease: No - ENDOCRINE/METABOLIC Hx Endocrine Disorders: No - HEMATOLOGICAL/ONCOLOGICAL Hx Blood Disorders: No - INTEGUMENTARY Hx Dermatological Problems: No - MUSCULOSKELETAL/RHEUMATOLOGICAL Hx Musculoskeletal Disorders: No Hx Falls: No - GASTROINTESTINAL Hx Gastrointestinal Disorders: No - GENITOURINARY/GYNECOLOGICAL Hx Genitourinary Disorders: No - PSYCHIATRIC Hx Substance Use: No - SURGICAL HISTORY Hx Coronary Stent: Yes - ANESTHESIA Hx Anesthesia: No Meds Allergies/Adverse Reactions: Allergies Allergy/AdvReac Type Severity Reaction Status Date / Time No Known Allergies Allergy Verified 03/25/18 20:59 Physical Exam - Constitutional Appears: Other (patient is sedated intubated- , reports that sedation seems going away, patient is trying to move all her extremeties , with eye movements, ) - Head Exam Head Exam: ATRAUMATIC, NORMOCEPHALIC - GI/Abdominal Exam GI & Abdominal Exam: absent: Distended - Extremities Exam Extremities exam: Negative for: joint swelling, pedal edema - Back Exam Back exam: absent: rash noted - Skin Skin Exam: Normal Color Results - Vital Signs Recent Vital Signs: Last Vital Signs Temp 97.9 F 04/09/18 21:15 Pulse 76 04/09/18 22:20 Resp 19 04/09/18 22:20 BP 146/88 04/09/18 22:20 Pulse Ox 100 04/09/18 22:20 - Labs Result Diagrams: 04/10/18 06:11 04/10/18 06:11 Labs: Laboratory Results - last 24 hr 04/09/18 04/09/18 04/09/18 18:58 19:06 19:06 WBC 16.9 H RBC 3.11 L Hgb 9.7 L Hct 30.3 L MCV 97.3 D MCH 31.3 H MCHC 32.1 L RDW 14.1 Plt Count 260 D MPV 7.9 Neut % (Auto) 84.2 H Lymph % (Auto) 5.8 L Garrett % (Auto) 5.0 Eos % (Auto) 4.4 H Baso % (Auto) 0.6 Neut # (Auto) 14.2 H Lymph # (Auto) 1.0 Garrett # (Auto) 0.8 Eos # (Auto) 0.7 Baso # (Auto) 0.1 Neutrophils % (Manual) 76 H Band Neutrophils % 6 H Lymphocytes % (Manual) 11 L Monocytes % (Manual) 2 Eosinophils % (Manual) 4 Basophils % (Manual) 1 Platelet Estimate Normal PT 12.2 INR 1.1 APTT 36 H Puncture Site pCO2 pO2 HCO3 ABG pH ABG Total CO2 ABG O2 Saturation ABG Base Excess ABG Hemoglobin ABG Carboxyhemoglobin POC ABG HHb (Measured) ABG Methemoglobin Caesar Test A-a O2 Difference Respiratory Index Hgb O2 Saturation Vent Mode Mechanical Rate FiO2 Tidal Volume PEEP Sodium Potassium Chloride Carbon Dioxide Anion Gap BUN Creatinine Est GFR ( Amer) Est GFR (Non-Af Amer) POC Glucose (mg/dL) 242 H Random Glucose Hemoglobin A1c Calcium Total Bilirubin AST ALT Alkaline Phosphatase Troponin I Total Protein Albumin Globulin Albumin/Globulin Ratio Triglycerides Cholesterol LDL Cholesterol Direct HDL Cholesterol Urine Opiates Screen Urine Methadone Screen Ur Barbiturates Screen Ur Phencyclidine Scrn Ur Amphetamines Screen U Benzodiazepines Scrn U Oth Cocaine Metabols U Cannabinoids Screen Blood Type Antibody Screen 04/09/18 04/09/18 04/09/18 19:06 19:06 19:06 WBC RBC Hgb Hct MCV MCH MCHC RDW Plt Count MPV Neut % (Auto) Lymph % (Auto) Garrett % (Auto) Eos % (Auto) Baso % (Auto) Neut # (Auto) Lymph # (Auto) Garrett # (Auto) Eos # (Auto) Baso # (Auto) Neutrophils % (Manual) Band Neutrophils % Lymphocytes % (Manual) Monocytes % (Manual) Eosinophils % (Manual) Basophils % (Manual) Platelet Estimate PT INR APTT Puncture Site pCO2 pO2 HCO3 ABG pH ABG Total CO2 ABG O2 Saturation ABG Base Excess ABG Hemoglobin ABG Carboxyhemoglobin POC ABG HHb (Measured) ABG Methemoglobin Caesar Test A-a O2 Difference Respiratory Index Hgb O2 Saturation Vent Mode Mechanical Rate FiO2 Tidal Volume PEEP Sodium 140 Potassium 3.5 L Chloride 108 H Carbon Dioxide 24 Anion Gap 12 BUN 24 H Creatinine 0.9 Est GFR ( Amer) > 60 Est GFR (Non-Af Amer) > 60 POC Glucose (mg/dL) Random Glucose 222 H D Hemoglobin A1c 5.4 Calcium 8.3 L Total Bilirubin 0.3 AST 38 H ALT 31 Alkaline Phosphatase 75 Troponin I 0.0880 Total Protein 5.4 L Albumin 2.8 L D Globulin 2.6 Albumin/Globulin Ratio 1.1 Triglycerides 75 Cholesterol 164 LDL Cholesterol Direct 86 HDL Cholesterol 63 Urine Opiates Screen Urine Methadone Screen Ur Barbiturates Screen Ur Phencyclidine Scrn Ur Amphetamines Screen U Benzodiazepines Scrn U Oth Cocaine Metabols U Cannabinoids Screen Blood Type O POSITIVE Antibody Screen Negative 04/09/18 04/09/18 19:45 20:02 WBC RBC Hgb Hct MCV MCH MCHC RDW Plt Count MPV Neut % (Auto) Lymph % (Auto) Garrett % (Auto) Eos % (Auto) Baso % (Auto) Neut # (Auto) Lymph # (Auto) Garrett # (Auto) Eos # (Auto) Baso # (Auto) Neutrophils % (Manual) Band Neutrophils % Lymphocytes % (Manual) Monocytes % (Manual) Eosinophils % (Manual) Basophils % (Manual) Platelet Estimate PT INR APTT Puncture Site Rba pCO2 58 H pO2 319 H HCO3 24.3 ABG pH 7.27 L ABG Total CO2 28.4 H ABG O2 Saturation 99.8 H ABG Base Excess -0.8 ABG Hemoglobin 9.3 L ABG Carboxyhemoglobin 2.1 H POC ABG HHb (Measured) 0.2 ABG Methemoglobin 1.6 Caesar Test Pos A-a O2 Difference 250.0 Respiratory Index 0.8 Hgb O2 Saturation 96.1 Vent Mode Prvc Mechanical Rate 16 FiO2 90.0 Tidal Volume 450 PEEP 5 Sodium Potassium Chloride Carbon Dioxide Anion Gap BUN Creatinine Est GFR ( Amer) Est GFR (Non-Af Amer) POC Glucose (mg/dL) Random Glucose Hemoglobin A1c Calcium Total Bilirubin AST ALT Alkaline Phosphatase Troponin I Total Protein Albumin Globulin Albumin/Globulin Ratio Triglycerides Cholesterol LDL Cholesterol Direct HDL Cholesterol Urine Opiates Screen Negative Urine Methadone Screen Negative Ur Barbiturates Screen Negative Ur Phencyclidine Scrn Negative Ur Amphetamines Screen Negative U Benzodiazepines Scrn Negative U Oth Cocaine Metabols Negative U Cannabinoids Screen Negative Blood Type Antibody Screen Assessment & Plan - Assessment and Plan (Free Text) Assessment: Patient with CAD CVA COPD admitted for acute Respiratory distress, intubated admitted to ICU with elevated White count CXRay-congestion , possible pneumonia Antibiotics closer monitoring history -CVA with right sided weakness, slurring of speech CAD plavix aspirin Hypertension -monitoring- on meds Incidental finding =thyroid mass- further evaluation when stable discussion with family - Date & Time Date: 04/09/18 Time: 10:00
[2018-04-09] MEDS ORDERED: Dextrose 50% SYRINGE Inj (50 ml) IV PRN (23:39)
[2018-04-09] MEDS ORDERED: Glucagon Recombinant 1 mg Inj IM PRN (23:39)
[2018-04-10] MEDS: MethylPREDNISolone 40 mg Vial IVP SCH ×5 (01:10→22:30)
[2018-04-10] MEDS: Piperacillin/Tazobact 3.375 GM in Sodium Chloride 100 ML IVPB SCH ×5 (01:15→23:46)
[2018-04-10] MEDS: (Novolog) Insulin Aspart, Recombinant 100 u/ml 10 ml vial SC SCH ×4 (01:40→18:12)
[2018-04-10] MEDS: Albuterol-Ipratrop 3 mg / 0.5 (3 ml) UD INH SCH ×4 (02:01→19:18)
[2018-04-10 05:12] LABS: SQUAMOUS EPITHIAL < 1 /hpf (0-5); URINE BILIRUBIN NEGATIVE (NEGATIVE); URINE BLOOD 1+ (NEGATIVE); URINE CLARITY Hazy (Clear); URINE COLOR Yellow (YELLOW); URINE GLUCOSE (UA) 1+ mg/dL (Normal); URINE LEUKOCYTE ESTERASE TRACE Leu/uL (Negative); URINE PROTEIN NEGATIVE (NEGATIVE); URINE UROBILINOGEN NORMAL mg/dL (0.2-1.0)
[2018-04-10 05:38] LABS: ARTERIAL BLOOD GAS HCO3 26.3 mmol/L (21-28); ARTERIAL BLOOD GAS HEMOGLOBIN 9.3 g/dL (11.7-17.4); ARTERIAL BLOOD GAS O2 SAT 99.1 % (95-98); ARTERIAL BLOOD GAS PCO2 36 mm/Hg (35-45); ARTERIAL BLOOD GAS PH 7.46 (7.35-7.45); ARTERIAL BLOOD GAS PO2 167 mm/Hg (80-100); ARTERIAL BLOOD GAS TCO2 26.7 mmol/L (22-28)
[2018-04-10 06:23] LABS: BASO # 0.2 K/uL (0.0-0.2); LYMPH # 0.2 K/uL (1.0-4.3); LYMPH % 1.2 % (20.0-40.0); MEAN CELL VOLUME 94.4 fL (81.0-99.0); MEAN CORPUSCULAR HEMOGLOBIN 37.3 pg (27.0-31.0); MEAN PLATELET VOLUME 8.4 fL (7.2-11.7); MONO # 0.6 K/uL (0.0-0.8); NEUT % 94.8 % (50.0-75.0); PLATELET COUNT 185 K/uL (130-400); RBC 2.46 Mil/uL (3.80-5.20); RED CELL DISTRIBUTION WIDTH 14.5 % (11.5-14.5); WHITE BLOOD COUNT 20.1 K/uL (4.8-10.8)
[2018-04-10 06:37] LABS: ALB/GLOB RATIO 1.1 (1.0-2.1); ALT/SGPT 32 U/L (9-52); AST/SGOT 24 U/L (14-36); BLOOD UREA NITROGEN 22 mg/dL (7-17); GFR NON-AFRICAN AMERICAN > 60
--- NOTE | 2018-04-10 07:20 | CP.PCM.CON ---
History of Present Illness - History of Present Illness History of Present Illness: CONSULTATION DICTATED NEW SLURRED SPEECH /RF RIGHT HEMIPARESIS - OLD ? NEW LEFT HEMIPARESIS REPEAT CAT CONTINUE STROKE PROPHYLAXIS FOLLOWING EXTUBATION -NEEDS MRI EEG Past Patient History - Infectious Disease Hx of Infectious Diseases: None - Past Medical History & Family History Past Medical History?: Yes - Past Social History Smoking Status: Never Smoked Chewing Tobacco Use: No Cigar Use: No Alcohol: None Home Situation {Lives}: With Family - CARDIAC Hx Cardiac Disorders: Yes (CAD post stent 2 weeks ago) Hx Hypertension: Yes - PULMONARY Hx Respiratory Disorders: No Hx Chronic Obstructive Pulmonary Disease (COPD): Yes Hx Emphysema: Yes - NEUROLOGICAL Hx Neurological Disorder: No HX Cerebrovascular Accident: Yes - HEENT Hx HEENT Problems: No - RENAL Hx Chronic Kidney Disease: No - ENDOCRINE/METABOLIC Hx Endocrine Disorders: No - HEMATOLOGICAL/ONCOLOGICAL Hx Blood Disorders: No - INTEGUMENTARY Hx Dermatological Problems: No - MUSCULOSKELETAL/RHEUMATOLOGICAL Hx Musculoskeletal Disorders: No Hx Falls: No - GASTROINTESTINAL Hx Gastrointestinal Disorders: No - GENITOURINARY/GYNECOLOGICAL Hx Genitourinary Disorders: No - PSYCHIATRIC Hx Substance Use: No - SURGICAL HISTORY Hx Coronary Stent: Yes - ANESTHESIA Hx Anesthesia: No Meds Allergies/Adverse Reactions: Allergies Allergy/AdvReac Type Severity Reaction Status Date / Time No Known Allergies Allergy Verified 03/25/18 20:59 - Medications Medications: Current Medications Albuterol/Ipratropium (Duoneb 3 Mg/0.5 Mg (3 Ml) Ud) 3 ml INH RQ6 [facility] Last Admin: 04/10/18 02:01 Dose: 3 ml Dextrose (Dextrose 50% Inj) 0 ml IV STAT PRN; Protocol PRN Reason: Hypoglycemia Protocol Dextrose (Glutose 15) 0 gm PO ONCE PRN; Protocol PRN Reason: Hypoglycemia Protocol Glucagon (Glucagen Diagnostic Kit) 0 mg IM STAT PRN; Protocol PRN Reason: Hypoglycemia Protocol Heparin Sodium (Porcine) (Heparin) 5,000 units SC Q8 [facility] Last Admin: 04/10/18 05:29 Dose: 5,000 units Sodium Chloride (Sodium Chloride 0.9%) 1,000 mls @ 75 mls/hr IV .[id number] [facility] Last Admin: 04/09/18 20:45 Dose: 75 mls/hr Propofol (Diprivan) 1,000 mg in 100 mls @ 1.769 mls/hr IV .Q24H PRN; Protocol PRN Reason: TITRATE PER MD ORDER Last Titration: 04/10/18 01:40 Dose: 20 mcg/kg/min, 7.076 mls/hr Piperacillin Sod/Tazobactam (Sod 3.375 gm/ Sodium Chloride) 100 mls @ 200 mls/hr IVPB Q6H [facility]; Protocol Last Admin: 04/10/18 05:53 Dose: 200 mls/hr Vancomycin HCl 1 gm/ Sodium (Chloride) 250 mls @ 166.7 mls/hr IVPB Q24H [facility]; Protocol Last Admin: 04/10/18 01:55 Dose: 166.7 mls/hr Dextrose (Dextrose 5% In Water 1000 Ml) 1,000 mls @ 0 mls/hr IV .Q0M PRN; Protocol PRN Reason: Hypoglycemia Protocol Insulin Aspart (Novolog) 0 unit SC Q6H [facility]; Protocol Last Admin: 04/10/18 05:56 Dose: Not Given Methylprednisolone (Solu-Medrol) 40 mg IVP Q8H [facility] Last Admin: 04/10/18 01:10 Dose: 40 mg Pantoprazole Sodium (Protonix Inj) 40 mg IVP DAILY [facility] Results - Vital Signs Recent Vital Signs: Last Vital Signs Temp 98 F 04/10/18 04:00 Pulse 61 04/10/18 06:03 Resp 20 04/10/18 06:03 BP 100/60 04/10/18 06:03 Pulse Ox 100 04/10/18 06:03 - Labs Result Diagrams: 04/10/18 06:11 04/10/18 06:11 Labs: Laboratory Results - last 24 hr 04/09/18 04/09/18 04/09/18 18:58 19:06 19:06 WBC 16.9 H RBC 3.11 L Hgb 9.7 L Hct 30.3 L MCV 97.3 D MCH 31.3 H MCHC 32.1 L RDW 14.1 Plt Count 260 D MPV 7.9 Neut % (Auto) 84.2 H Lymph % (Auto) 5.8 L Randolph % (Auto) 5.0 Eos % (Auto) 4.4 H Baso % (Auto) 0.6 Neut # (Auto) 14.2 H Lymph # (Auto) 1.0 Randolph # (Auto) 0.8 Eos # (Auto) 0.7 Baso # (Auto) 0.1 Neutrophils % (Manual) 76 H Band Neutrophils % 6 H Lymphocytes % (Manual) 11 L Monocytes % (Manual) 2 Eosinophils % (Manual) 4 Basophils % (Manual) 1 Platelet Estimate Normal PT 12.2 INR 1.1 APTT 36 H Puncture Site pCO2 pO2 HCO3 ABG pH ABG Total CO2 ABG O2 Saturation ABG Base Excess ABG Hemoglobin ABG Carboxyhemoglobin POC ABG HHb (Measured) ABG Methemoglobin Caesar Test A-a O2 Difference Respiratory Index Hgb O2 Saturation Vent Mode Mechanical Rate FiO2 Tidal Volume PEEP Sodium Potassium Chloride Carbon Dioxide Anion Gap BUN Creatinine Est GFR ( Amer) Est GFR (Non-Af Amer) POC Glucose (mg/dL) 242 H Random Glucose Hemoglobin A1c Lactic Acid Calcium Phosphorus Magnesium Total Bilirubin AST ALT Alkaline Phosphatase Troponin I Total Protein Albumin Globulin Albumin/Globulin Ratio Triglycerides Cholesterol LDL Cholesterol Direct HDL Cholesterol Urine Color Urine Clarity Urine pH Ur Specific Shelby Urine Protein Urine Glucose (UA) Urine Ketones Urine Blood Urine Nitrate Urine Bilirubin Urine Urobilinogen Ur Leukocyte Esterase Urine WBC (Auto) Urine RBC (Auto) Ur Squamous Epith Cells Urine Yeast (Budding) Urine Opiates Screen Urine Methadone Screen Ur Barbiturates Screen Ur Phencyclidine Scrn Ur Amphetamines Screen U Benzodiazepines Scrn U Oth Cocaine Metabols U Cannabinoids Screen Blood Type Antibody Screen 04/09/18 04/09/18 04/09/18 19:06 19:06 19:06 WBC RBC Hgb Hct MCV MCH MCHC RDW Plt Count MPV Neut % (Auto) Lymph % (Auto) Randolph % (Auto) Eos % (Auto) Baso % (Auto) Neut # (Auto) Lymph # (Auto) Randolph # (Auto) Eos # (Auto) Baso # (Auto) Neutrophils % (Manual) Band Neutrophils % Lymphocytes % (Manual) Monocytes % (Manual) Eosinophils % (Manual) Basophils % (Manual) Platelet Estimate PT INR APTT Puncture Site pCO2 pO2 HCO3 ABG pH ABG Total CO2 ABG O2 Saturation ABG Base Excess ABG Hemoglobin ABG Carboxyhemoglobin POC ABG HHb (Measured) ABG Methemoglobin Caesar Test A-a O2 Difference Respiratory Index Hgb O2 Saturation Vent Mode Mechanical Rate FiO2 Tidal Volume PEEP Sodium 140 Potassium 3.5 L Chloride 108 H Carbon Dioxide 24 Anion Gap 12 BUN 24 H Creatinine 0.9 Est GFR ( Amer) > 60 Est GFR (Non-Af Amer) > 60 POC Glucose (mg/dL) Random Glucose 222 H D Hemoglobin A1c 5.4 Lactic Acid Calcium 8.3 L Phosphorus Magnesium Total Bilirubin 0.3 AST 38 H ALT 31 Alkaline Phosphatase 75 Troponin I 0.0880 Total Protein 5.4 L Albumin 2.8 L D Globulin 2.6 Albumin/Globulin Ratio 1.1 Triglycerides 75 Cholesterol 164 LDL Cholesterol Direct 86 HDL Cholesterol 63 Urine Color Urine Clarity Urine pH Ur Specific Shelby Urine Protein Urine Glucose (UA) Urine Ketones Urine Blood Urine Nitrate Urine Bilirubin Urine Urobilinogen Ur Leukocyte Esterase Urine WBC (Auto) Urine RBC (Auto) Ur Squamous Epith Cells Urine Yeast (Budding) Urine Opiates Screen Urine Methadone Screen Ur Barbiturates Screen Ur Phencyclidine Scrn Ur Amphetamines Screen U Benzodiazepines Scrn U Oth Cocaine Metabols U Cannabinoids Screen Blood Type O POSITIVE Antibody Screen Negative 04/09/18 04/09/18 04/10/18 19:45 20:02 01:06 WBC RBC Hgb Hct MCV MCH MCHC RDW Plt Count MPV Neut % (Auto) Lymph % (Auto) Randolph % (Auto) Eos % (Auto) Baso % (Auto) Neut # (Auto) Lymph # (Auto) Randolph # (Auto) Eos # (Auto) Baso # (Auto) Neutrophils % (Manual) Band Neutrophils % Lymphocytes % (Manual) Monocytes % (Manual) Eosinophils % (Manual) Basophils % (Manual) Platelet Estimate PT INR APTT Puncture Site Rba pCO2 58 H pO2 319 H HCO3 24.3 ABG pH 7.27 L ABG Total CO2 28.4 H ABG O2 Saturation 99.8 H ABG Base Excess -0.8 ABG Hemoglobin 9.3 L ABG Carboxyhemoglobin 2.1 H POC ABG HHb (Measured) 0.2 ABG Methemoglobin 1.6 Caesar Test Pos A-a O2 Difference 250.0 Respiratory Index 0.8 Hgb O2 Saturation 96.1 Vent Mode Prvc Mechanical Rate 16 FiO2 90.0 Tidal Volume 450 PEEP 5 Sodium Potassium Chloride Carbon Dioxide Anion Gap BUN Creatinine Est GFR ( Amer) Est GFR (Non-Af Amer) POC Glucose (mg/dL) 170 H Random Glucose Hemoglobin A1c Lactic Acid Calcium Phosphorus Magnesium Total Bilirubin AST ALT Alkaline Phosphatase Troponin I Total Protein Albumin Globulin Albumin/Globulin Ratio Triglycerides Cholesterol LDL Cholesterol Direct HDL Cholesterol Urine Color Urine Clarity Urine pH Ur Specific Shelby Urine Protein Urine Glucose (UA) Urine Ketones Urine Blood Urine Nitrate Urine Bilirubin Urine Urobilinogen Ur Leukocyte Esterase Urine WBC (Auto) Urine RBC (Auto) Ur Squamous Epith Cells Urine Yeast (Budding) Urine Opiates Screen Negative Urine Methadone Screen Negative Ur Barbiturates Screen Negative Ur Phencyclidine Scrn Negative Ur Amphetamines Screen Negative U Benzodiazepines Scrn Negative U Oth Cocaine Metabols Negative U Cannabinoids Screen Negative Blood Type Antibody Screen 04/10/18 04/10/18 04/10/18 01:23 01:27 05:02 WBC RBC Hgb Hct MCV MCH MCHC RDW Plt Count MPV Neut % (Auto) Lymph % (Auto) Randolph % (Auto) Eos % (Auto) Baso % (Auto) Neut # (Auto) Lymph # (Auto) Randolph # (Auto) Eos # (Auto) Baso # (Auto) Neutrophils % (Manual) Band Neutrophils % Lymphocytes % (Manual) Monocytes % (Manual) Eosinophils % (Manual) Basophils % (Manual) Platelet Estimate PT INR APTT 28 D Puncture Site pCO2 pO2 HCO3 ABG pH ABG Total CO2 ABG O2 Saturation ABG Base Excess ABG Hemoglobin ABG Carboxyhemoglobin POC ABG HHb (Measured) ABG Methemoglobin Caesar Test A-a O2 Difference Respiratory Index Hgb O2 Saturation Vent Mode Mechanical Rate FiO2 Tidal Volume PEEP Sodium Potassium Chloride Carbon Dioxide Anion Gap BUN Creatinine Est GFR ( Amer) Est GFR (Non-Af Amer) POC Glucose (mg/dL) Random Glucose Hemoglobin A1c Lactic Acid 1.6 Calcium Phosphorus Magnesium Total Bilirubin AST ALT Alkaline Phosphatase Troponin I Total Protein Albumin Globulin Albumin/Globulin Ratio Triglycerides Cholesterol LDL Cholesterol Direct HDL Cholesterol Urine Color Yellow Urine Clarity Hazy Urine pH 7.0 Ur Specific Shelby 1.018 Urine Protein Negative Urine Glucose (UA) 1+ Urine Ketones Negative Urine Blood 1+ H Urine Nitrate Negative Urine Bilirubin Negative Urine Urobilinogen Normal Ur Leukocyte Esterase Trace Urine WBC (Auto) 6 H Urine RBC (Auto) 6 H Ur Squamous Epith Cells < 1 Urine Yeast (Budding) Mod H Urine Opiates Screen Urine Methadone Screen Ur Barbiturates Screen Ur Phencyclidine Scrn Ur Amphetamines Screen U Benzodiazepines Scrn U Oth Cocaine Metabols U Cannabinoids Screen Blood Type Antibody Screen 04/10/18 04/10/18 04/10/18 05:13 05:38 06:11 WBC 20.1 H RBC 2.46 L Hgb 9.1 L Hct 23.2 L MCV 94.4 D MCH 37.3 H MCHC 39.5 H RDW 14.5 Plt Count 185 MPV 8.4 Neut % (Auto) 94.8 H Lymph % (Auto) 1.2 L Randolph % (Auto) 3.0 Eos % (Auto) 0.0 Baso % (Auto) 1.0 Neut # (Auto) 19.0 H Lymph # (Auto) 0.2 L Randolph # (Auto) 0.6 Eos # (Auto) 0.0 Baso # (Auto) 0.2 Neutrophils % (Manual) Band Neutrophils % Lymphocytes % (Manual) Monocytes % (Manual) Eosinophils % (Manual) Basophils % (Manual) Platelet Estimate PT INR APTT Puncture Site Rb pCO2 36 pO2 167 H HCO3 26.3 ABG pH 7.46 H ABG Total CO2 26.7 ABG O2 Saturation 99.1 H ABG Base Excess 1.8 ABG Hemoglobin 9.3 L ABG Carboxyhemoglobin 1.3 POC ABG HHb (Measured) 0.9 ABG Methemoglobin 1.0 Caesar Test Na A-a O2 Difference 73.0 Respiratory Index 0.4 Hgb O2 Saturation 96.7 Vent Mode Prvc Mechanical Rate 20 FiO2 40.0 Tidal Volume 450 PEEP 5 Sodium Potassium Chloride Carbon Dioxide Anion Gap BUN Creatinine Est GFR ( Amer) Est GFR (Non-Af Amer) POC Glucose (mg/dL) 153 H Random Glucose Hemoglobin A1c Lactic Acid Calcium Phosphorus Magnesium Total Bilirubin AST ALT Alkaline Phosphatase Troponin I Total Protein Albumin Globulin Albumin/Globulin Ratio Triglycerides Cholesterol LDL Cholesterol Direct HDL Cholesterol Urine Color Urine Clarity Urine pH Ur Specific Shelby Urine Protein Urine Glucose (UA) Urine Ketones Urine Blood Urine Nitrate Urine Bilirubin Urine Urobilinogen Ur Leukocyte Esterase Urine WBC (Auto) Urine RBC (Auto) Ur Squamous Epith Cells Urine Yeast (Budding) Urine Opiates Screen Urine Methadone Screen Ur Barbiturates Screen Ur Phencyclidine Scrn Ur Amphetamines Screen U Benzodiazepines Scrn U Oth Cocaine Metabols U Cannabinoids Screen Blood Type Antibody Screen 04/10/18 06:11 WBC RBC Hgb Hct MCV MCH MCHC RDW Plt Count MPV Neut % (Auto) Lymph % (Auto) Randolph % (Auto) Eos % (Auto) Baso % (Auto) Neut # (Auto) Lymph # (Auto) Randolph # (Auto) Eos # (Auto) Baso # (Auto) Neutrophils % (Manual) Band Neutrophils % Lymphocytes % (Manual) Monocytes % (Manual) Eosinophils % (Manual) Basophils % (Manual) Platelet Estimate PT INR APTT Puncture Site pCO2 pO2 HCO3 ABG pH ABG Total CO2 ABG O2 Saturation ABG Base Excess ABG Hemoglobin ABG Carboxyhemoglobin POC ABG HHb (Measured) ABG Methemoglobin Caesar Test A-a O2 Difference Respiratory Index Hgb O2 Saturation Vent Mode Mechanical Rate FiO2 Tidal Volume PEEP Sodium 140 Potassium 3.5 L Chloride 108 H Carbon Dioxide 24 Anion Gap 12 BUN 22 H Creatinine 0.7 Est GFR ( Amer) > 60 Est GFR (Non-Af Amer) > 60 POC Glucose (mg/dL) Random Glucose 153 H D Hemoglobin A1c Lactic Acid Calcium 9.0 Phosphorus 3.5 Magnesium 1.9 Total Bilirubin 0.7 AST 24 ALT 32 Alkaline Phosphatase 87 Troponin I Total Protein 5.6 L Albumin 3.0 L Globulin 2.6 Albumin/Globulin Ratio 1.1 Triglycerides Cholesterol LDL Cholesterol Direct HDL Cholesterol Urine Color Urine Clarity Urine pH Ur Specific [place] Urine Protein Urine Glucose (UA) Urine Ketones Urine Blood Urine Nitrate Urine Bilirubin Urine Urobilinogen Ur Leukocyte Esterase Urine WBC (Auto) Urine RBC (Auto) Ur Squamous Epith Cells Urine Yeast (Budding) Urine Opiates Screen Urine Methadone Screen Ur Barbiturates Screen Ur Phencyclidine Scrn Ur Amphetamines Screen U Benzodiazepines Scrn U Oth Cocaine Metabols U Cannabinoids Screen Blood Type Antibody Screen
[2018-04-10 07:22] LABS: HEMOGLOBIN 9.2 g/dL (11.0-16.0); MEAN CORPUSCULAR HGB CONC 32.7 g/dL (33.0-37.0)
--- NOTE | 2018-04-10 08:00 | CON ---
DATE: 04/10/2018 ATTENDING PHYSICIAN: LOCATION: The patient's room number is ICU 14, bed A. REASON FOR THE CONSULTATION: New slurred speech and respiratory arrest. CHIEF COMPLAINT: The patient was brought in from jail with a history of new slurred speech and respiratory arrest with loss of consciousness. From neurological point of view, I was called in to evaluate her for further management. HISTORY OF PRESENT ILLNESS: Ms. Doreen Gonzalez is a 67-year-old right-handed [place] female who was known to me from her previous hospitalization, who was seen for her change in mental status, had been presenting with right-sided weakness which was worked up, found that she did have a left [employer]IST[employer] territory ischemic process. The patient did undergo a stent placement during her previous hospitalization as well. The patient was discharged following her workup, had been on aspirin and Plavix. She did have a witnessed shortness of breath, slurred speech, change in mental status, probable loss of consciousness, all happened in front of the nursing attendees. No witnessed tonic-clonic activities or bowel and bladder incontinence during the scene. The patient was intubated, and she was hospitalized for further workup. PAST MEDICAL HISTORY: Coronary artery disease, hypertension, stroke. PERSONAL HISTORY: Denies smoking or alcohol use. ALLERGIES: NO KNOWN ALLERGIES. REVIEW OF SYSTEMS: Twelve-point system being reviewed. From neuro, new change in mental status, loss of consciousness, and weakness. MEDICATIONS: Diprivan drip, DuoNeb, NovoLog, piperacillin, methylprednisolone, and vancomycin. PHYSICAL EXAMINATION: VITAL SIGNS: Blood pressure 100/60, mean artery pressure of 74, respiratory rate 18, temperature afebrile, pulse rate is 61 and regular. GENERAL: The patient is on vent, awake. The patient is examined in the presence of the family members. HEART: Heart sounds regular with systolic murmur. EXTREMITIES: Left leg externally rotated. NEUROLOGIC EXAMINATION: Mental status examination: Seems to be awake, alert, following commands. No right and left confusion. Cranial nerve examination: Respond to visual threat. Pupils reactive to light. Facial asymmetry again noted. Motor examination: Right-sided hemiparesis noted. Left side, left leg is externally rotated which is new. She has some spontaneous movements noted only on the left than the right side. Deep tendon reflexes: Biceps, brachialis, triceps 3+ on both sides. Both knees are 3+. Both ankles are 2+. Plantars are upgoing on both sides. Coordination: [id number] dysmetria noted on both sides. CONCLUSION: As per neurological examination, Ms. Doreen Gonzalez is presenting with status post slurred speech, respiratory distress, loss of consciousness, all raised the possibility of brainstem ischemic process. The current examination shows a new left-sided weakness which is probably secondary to right cerebral dysfunction versus brainstem dysfunction. Because of loss of consciousness, other possible causes such as nonconvulsive seizures should be ruled out. LABORATORY DATA: Her workup, a CT of the head is being reviewed, no acute pathology is noted. CT of the chest is being reported as metastatic lesion. Blood workup: WBC 20.1, hemoglobin 9.2, hematocrit 28.1, platelet 185. PT 12.2, INR 1.1, PTT 28. Sodium 140, potassium 3.5, chloride 108, bicarbonate is 24, BUN 22, creatinine 0.7, GFR more than 60, and glucose 153. RECOMMENDATIONS: 1. Repeat CT of the head to follow up stroke process. 2. EEG to rule out any paroxysmal activities. 3. The patient should be on NG tube placed. Continue aspirin and Plavix for stroke prophylaxis. DVT prophylaxis should be continued. The patient should be followed up with Pulmonary as well as Cardiology for her existing problem and a new metastatic process. The patient will be followed closely with you. Andrew Castro MD
[2018-04-10] MEDS ORDERED: Potassium Chloride 20 mEq/15 ml LIQ UD PO ONE ×3 (08:30→11:00)
--- NOTE | 2018-04-10 08:32 | CT ---
Date of service: 04/09/2018 PROCEDURE: CT HEAD WITHOUT CONTRAST. HISTORY: Code Stroke COMPARISON: 04/01/2018. TECHNIQUE: Axial computed tomography images were obtained through the head/brain without intravenous contrast. Radiation dose: Total exam DLP = 948.93 mGy-cm. This CT exam was performed using one or more of the following dose reduction techniques: Automated exposure control, adjustment of the mA and/or kV according to patient size, and/or use of iterative reconstruction technique. FINDINGS: HEMORRHAGE: No intracranial hemorrhage. BRAIN: There are moderate chronic microangiopathic changes. There is no mass, mass effect or abnormal extra-axial fluid collection. There is no territorial infarction. The midline sagittal structures are normal. VENTRICLES: There is mild age-related global parenchymal volume loss and proportionate enlargement of the ventricles and cortical sulci. CALVARIUM: There is a well-circumscribed ovoid osteolytic lesion in the left parietal calvarium. PARANASAL SINUSES: Predominantly clear. MASTOID AIR CELLS: Predominantly clear. OTHER FINDINGS: None. IMPRESSION: 1. No acute intracranial abnormality. If there is a persistent focal neurologic deficit and an ongoing clinical concern for acute infarction, an MRI of the brain without intravenous contrast would be a more sensitive modality for evaluation of hyperacute/acute ischemic infarction. 2. Moderate chronic microangiopathic changes and mild age-related global parenchymal volume loss. 3. Well-circumscribed ovoid osteolytic lesion in the left parietal calvarium nonspecific, the differential considerations include benign and malignant etiologies. Correlation with MRI brain with intravenous contrast and radionuclide bone scan may be helpful for further characterization. A preliminary report was provided by [facility].
[2018-04-10 09:01] LABS: B-TYPE NATRIURETIC PEPTIDE 6150 pg/mL (0-900)
--- NOTE | 2018-04-10 09:03 | RAD ---
Date of service: 04/10/2018 HISTORY: pt intubated COMPARISON: 04/09/2018 FINDINGS: Endotracheal tube is high in position and terminates in the proximal trachea. The nasogastric tube terminates in the stomach. LUNGS: There is multifocal patchy airspace disease in both lungs. PLEURA: No pleural effusions or pneumothorax. CARDIOVASCULAR: Mild cardiomegaly. No aortic atherosclerotic calcifications present. OSSEOUS STRUCTURES: Within normal limits for the patient's age. VISUALIZED UPPER ABDOMEN: Normal. OTHER FINDINGS: None. IMPRESSION: Multifocal pneumonia. Endotracheal tube terminates in the proximal trachea.
[2018-04-10 09:04] LABS: ANISOCYTOSIS SLIGHT; BANDS 6 % (0-2); HYPOCHROMIC SLIGHT; LYMPHOCYTE 2 % (20-40); MONOCYTE 2 % (0-10); NEUTROPHIL 90 % (50-75); PLATELET ESTIMATE NORMAL (NORMAL); POIKILOCYTOSIS SLIGHT; TOTAL CELLS COUNTED 100
[2018-04-10 09:05] LABS: TARGET CELLS SLIGHT
--- NOTE | 2018-04-10 09:24 | RAD ---
Date of service: 04/09/2018 HISTORY: Code Stroke COMPARISON: 03/25/2018. FINDINGS: Endotracheal tube is high in position and terminates in the proximal trachea. LUNGS: The lungs are well inflated. There is diffuse patchy nodular airspace disease in both lungs. PLEURA: No pleural effusions or pneumothorax. CARDIOVASCULAR: The heart is normal in size. No aortic atherosclerotic calcifications present. OSSEOUS STRUCTURES: Within normal limits for the patient's age. VISUALIZED UPPER ABDOMEN: Normal. OTHER FINDINGS: None. IMPRESSION: Patchy nodular multifocal pneumonia. Endotracheal tube is high in position and terminates in the proximal trachea. Repositioning is recommended.
[2018-04-10] MEDS: Sodium Chloride 0.9% 1,000 ML IV SCH (10:50)
--- NOTE | 2018-04-10 12:06 | CT ---
Date of service: 04/09/2018 PROCEDURE: CTA HEAD AND NECK WITH CONTRAST HISTORY: Stroke COMPARISON: None available. TECHNIQUE: Initial noncontrast head CT was performed. Subsequently, CT angiogram of the head and neck were performed after the intravenous administration of 80 mL of Omnipaque 350. Contiguous 1.5mm thick images were obtained in the axial plane of the neck. 2-D coronal and sagittal MPR images were obtained. Imaging postprocessing was performed with 3-D images also obtained. A delayed contrast head CT was also obtained. This CT exam was performed using one or more of the following dose reduction techniques: Automated exposure control, adjustment of the mA and/or kV according to patient size, and/or use of iterative reconstruction technique. Contrast dose: 100 mL Visipaque 320 Radiation dose: Total exam DLP = 428.06 mGy-cm. FINDINGS: HEAD: Right: The intracranial internal carotid artery, and anterior and middle cerebral arteries are widely patent. Left: The intracranial internal carotid artery, and anterior and middle cerebral arteries are widely patent. Posterior circulation: The visualized intracranial vertebral arteries, basilar artery and posterior cerebral arteries are widely patent. There is origin of the right posterior cerebral artery, an anatomic variant. There is no endoluminal filling defect to suggest thrombus. There is no intracranial saccular aneurysm. NECK: There is a three vessel aortic arch. There is no stenosis at the origins of the great vessels at the level of the aortic arch. There is mild coarse atherosclerotic calcification in the right proximal internal carotid artery. Right Carotid: On the right, the common carotid, internal carotid and external carotid arteries are widely patent. There is no hemodynamically significant stenosis in the internal carotid artery by NASCET criteria. Left Carotid: On the left, the common carotid, internal carotid and external carotid arteries are widely patent. There is no hemodynamically significant stenosis in the internal carotid artery by NASCET criteria. The vertebral arteries are widely patent. 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 Endotracheal tube is seen in the proximal trachea. Multifocal nodular lesions in the visualized lungs. There are multiple osteolytic lesions in the C5, C6, C7, T1 and T2 vertebral bodies, C2 spinous process with pathological fracture in the C7 vertebral body. There also large osteolytic lesion in the manubrium of the sternum. IMPRESSION: 1. No evidence of endoluminal thrombus,occlusion or definite significant stenosis in the intracranial arteries. 2. No evidence of hemodynamically significant stenosis in the internal carotid arteries. 3. Patent bilateral vertebral arteries. 4. 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 5. 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 Dedicated thyroid ultrasound is recommended for further evaluation. 6. Multifocal pneumonia versus metastasis in the visualized lungs. A preliminary report was provided by [employer].
--- NOTE | 2018-04-10 12:24 | CT ---
Date of service: 04/09/2018 PROCEDURE: CT Chest without contrast HISTORY: Evaluate lungs COMPARISON: Comparison made with chest radiograph 04/09/18 at 19:45 hours. TECHNIQUE: Contiguous axial images were obtained through the chest without intravenous contrast enhancement. Sagittal and coronal reconstructions were performed. Radiation dose: Total exam DLP = 149.13 mGy-cm. This CT exam was performed using one or more of the following dose reduction techniques: Automated exposure control, adjustment of the mA and/or kV according to patient size, and/or use of iterative reconstruction technique. FINDINGS: There is an in situ endotracheal tube, the tip of which lies approximately 5.9 cm above gomez.. LUNGS: Multifocal patchy nodular interstitial and alveolar opacities seen in the upper and lower lobes with more confluent changes seen in the superior margins of both lower lobes. MEDIASTINUM: Unremarkable thoracic aorta. No aneurysm. Ascending thoracic aorta measures approximately 3.65 cm and descending thoracic aorta measures approximately 2.7 cm. Mild partially calcified atherosclerotic plaque seen along the aortic arch. Pulmonary trunk measures approximately 2.8 cm. Large amount of air seen within the anterior aspect of the pulmonary trunk. There is also small amount of air seen within the right jugular vein and probably the right subclavian vein as well. Findings likely due to recent intravenous injection Heart is enlarged. No significant pericardial effusion. There is a mass lesion which appears to involve the right lobe of the thyroid gland. Associated the eggshell like calcifications and possibly hypodense central nodules are present in the superior aspect of the right lobe of the thyroid gland. Thyroid ultrasound follow-up recommended to exclude malignancy. Small calcifications seen in the left parasagittal thyroid isthmus. This lesion does exert mass effect with compression and anterolateral displacement of the right brachiocephalic vein and right proximal subclavian vein. There also appears to be anterolateral compression of the proximal aspect right common carotid artery as well.. There is compression and mild left lateral displacement of the upper trachea. Debris is also felt to be present within the right posterolateral of lumen of the trachea just below the level of the endotracheal tube. Air is present throughout most of the esophagus. There is a small hiatal hernia with wall thickening of the distal esophagus likely due to protrusion of gastric mucosa. Possibility of esophagitis not excluded. No significant mediastinal adenopathy. Evaluation for hilar adenopathy is limited due to the lack of circulating intravenous contrast material.. PLEURA: There appear to be small bilateral effusions and mild bibasilar atelectasis left greater than right. No evidence of pneumothorax. BONES: Destructive changes of the sternum and manubrium.. There are also destructive changes seen involving the C7, T1 and T2 vertebral body segments.. Findings are consistent with metastatic disease note that there appears to be a mottled appearance of many of the remaining thoracic segments which could be due to diffuse osteopenia however early metastatic deposits should be excluded. . There is also a sclerotic lesion seen within the right posterolateral margin of the T2 segment extending into the pedicle. Sclerotic lesion also present in the T2 spinous process. UPPER ABDOMEN: Enlarged left adrenal gland. Rule out on metastatic deposit. OTHER FINDINGS: None. IMPRESSION: There is a large mass which appears to arise from the right lobe of the thyroid gland which exerts surrounding mass effect and results in compression of the trachea as well as the right brachiocephalic artery, subclavian and common carotid arteries.. This lesion is suspicious for a thyroid malignancy. Thyroid biopsy recommended for further evaluation. Destructive changes of the sternum and manubrium.. There are also destructive changes seen involving the C7, T1 and T2 vertebral body segments.. Findings are consistent with metastatic disease note that there appears to be a mottled appearance of many of the remaining thoracic segments which could be due to diffuse osteopenia however early metastatic deposits should be excluded. . There is also a sclerotic lesion seen within the right posterolateral margin of the T2 segment extending into the pedicle. Sclerotic lesion also present in the T2 spinous process. Bilateral multifocal patchy interstitial and nodular opacities most confluent in the upper lobes bilaterally. Air is present within the anterior aspect of the pulmonary trunk and probably within the right subclavian vein likely due to recent intravenous injection.
--- NOTE | 2018-04-10 13:18 | CP.PCM.CON ---
History of Present Illness - History of Present Illness History of Present Illness: Reason for consultation: Respiratory failure on ventilatory support 67-year-old female who was recently admitted at [facility] status post cardiac cath and RCA drug eluting stent placement, [facility] after she lost consciousness and was intubated in the field. In the emergency room patient was found to have elevated PCO2. Now patient on ventilatory support and is awake and tolerating CPAP. 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 CAT scan of the head and neck No secretions from the ET tube. And patient is afebrile Review of Systems - Review of Systems Systems not reviewed;Unavailable: Intubated Past Patient History - Infectious Disease Hx of Infectious Diseases: None - Past Medical History & Family History Past Medical History?: Yes - Past Social History Smoking Status: Never Smoked Chewing Tobacco Use: No Cigar Use: No Alcohol: None Home Situation {Lives}: With Family - CARDIAC Hx Cardiac Disorders: Yes (CAD post stent 2 weeks ago) Hx Hypertension: Yes - PULMONARY Hx Respiratory Disorders: No Hx Chronic Obstructive Pulmonary Disease (COPD): Yes Hx Emphysema: Yes - NEUROLOGICAL Hx Neurological Disorder: No HX Cerebrovascular Accident: Yes - HEENT Hx HEENT Problems: No - RENAL Hx Chronic Kidney Disease: No - ENDOCRINE/METABOLIC Hx Endocrine Disorders: No - HEMATOLOGICAL/ONCOLOGICAL Hx Blood Disorders: No - INTEGUMENTARY Hx Dermatological Problems: No - MUSCULOSKELETAL/RHEUMATOLOGICAL Hx Musculoskeletal Disorders: No Hx Falls: No - GASTROINTESTINAL Hx Gastrointestinal Disorders: No - GENITOURINARY/GYNECOLOGICAL Hx Genitourinary Disorders: No - PSYCHIATRIC Hx Substance Use: No - SURGICAL HISTORY Hx Coronary Stent: Yes - ANESTHESIA Hx Anesthesia: No Meds Allergies/Adverse Reactions: Allergies Allergy/AdvReac Type Severity Reaction Status Date / Time No Known Allergies Allergy Verified 03/25/18 20:59 - Medications Medications: Current Medications Albuterol/Ipratropium (Duoneb 3 Mg/0.5 Mg (3 Ml) Ud) 3 ml INH RQ6 [facility] Last Admin: 04/10/18 07:40 Dose: 3 ml Amlodipine Besylate (Norvasc) 10 mg PO DAILY [facility] Aspirin (Aspirin Chewable) 81 mg PO DAILY [facility] Clopidogrel Bisulfate (Plavix) 75 mg PO DAILY [facility] Dextrose (Dextrose 50% Inj) 0 ml IV STAT PRN; Protocol PRN Reason: Hypoglycemia Protocol Dextrose (Glutose 15) 0 gm PO ONCE PRN; Protocol PRN Reason: Hypoglycemia Protocol Enoxaparin Sodium (Lovenox) 30 mg SC DAILY [facility] Furosemide (Lasix) 40 mg IVP DAILY [facility] Last Admin: 04/10/18 09:48 Dose: 40 mg Glucagon (Glucagen Diagnostic Kit) 0 mg IM STAT PRN; Protocol PRN Reason: Hypoglycemia Protocol Heparin Sodium (Porcine) (Heparin) 5,000 units SC Q8 [facility] Last Admin: 04/10/18 05:29 Dose: 5,000 units Piperacillin Sod/Tazobactam (Sod 3.375 gm/ Sodium Chloride) 100 mls @ 200 mls/hr IVPB Q6H [facility]; Protocol Last Admin: 04/10/18 11:34 Dose: 200 mls/hr Vancomycin HCl 1 gm/ Sodium (Chloride) 250 mls @ 166.7 mls/hr IVPB Q24H [facility]; Protocol Last Admin: 04/10/18 01:55 Dose: 166.7 mls/hr Dextrose (Dextrose 5% In Water 1000 Ml) 1,000 mls @ 0 mls/hr IV .Q0M PRN; Protocol PRN Reason: Hypoglycemia Protocol Insulin Aspart (Novolog) 0 unit SC Q6H [facility]; Protocol Last Admin: 04/10/18 11:37 Dose: Not Given Lisinopril (Zestril) 40 mg PO DAILY [facility] Methylprednisolone (Solu-Medrol) 40 mg IVP Q12H [facility] Last Admin: 04/10/18 10:52 Dose: Not Given Pantoprazole Sodium (Protonix Inj) 40 mg IVP DAILY [facility] Last Admin: 04/10/18 11:00 Dose: 40 mg Potassium Chloride (K-Dur 20 Meq Er Tab) 20 meq PO DAILY [facility] Rosuvastatin Calcium (Crestor) 5 mg PO HS [facility] Physical Exam - Head Exam Head Exam: ATRAUMATIC, NORMOCEPHALIC - Eye Exam Eye Exam: Normal appearance - ENT Exam ENT Exam: Mucous Membranes Moist - Neck Exam Neck exam: Positive for: Normal Inspection - Respiratory Exam Respiratory Exam: Rales, Rhonchi - Cardiovascular Exam Cardiovascular Exam: REGULAR RHYTHM - GI/Abdominal Exam GI & Abdominal Exam: Normal Bowel Sounds - Extremities Exam Extremities exam: Positive for: normal inspection Results - Vital Signs Recent Vital Signs: Last Vital Signs Temp 98 F 04/10/18 04:00 Pulse 59 L 04/10/18 07:03 Resp 19 04/10/18 07:03 BP 104/77 04/10/18 09:48 Pulse Ox 100 04/10/18 07:03 - Labs Result Diagrams: 04/10/18 06:11 04/10/18 06:11 Labs: Laboratory Results - last 24 hr 04/09/18 04/09/18 04/09/18 18:58 19:06 19:06 WBC 16.9 H RBC 3.11 L Hgb 9.7 L Hct 30.3 L MCV 97.3 D MCH 31.3 H MCHC 32.1 L RDW 14.1 Plt Count 260 D MPV 7.9 Neut % (Auto) 84.2 H Lymph % (Auto) 5.8 L [place] % (Auto) 5.0 Eos % (Auto) 4.4 H Baso % (Auto) 0.6 Neut # (Auto) 14.2 H Lymph # (Auto) 1.0 [place] # (Auto) 0.8 Eos # (Auto) 0.7 Baso # (Auto) 0.1 Neutrophils % (Manual) 76 H Band Neutrophils % 6 H Lymphocytes % (Manual) 11 L Monocytes % (Manual) 2 Eosinophils % (Manual) 4 Basophils % (Manual) 1 Platelet Estimate Normal Hypochromasia (manual) Poikilocytosis (manual Anisocytosis (manual) Target Cells PT 12.2 INR 1.1 APTT 36 H Puncture Site pCO2 pO2 HCO3 ABG pH ABG Total CO2 ABG O2 Saturation ABG Base Excess ABG Hemoglobin ABG Carboxyhemoglobin POC ABG HHb (Measured) ABG Methemoglobin Caesar Test A-a O2 Difference Respiratory Index Hgb O2 Saturation Vent Mode Mechanical Rate FiO2 Tidal Volume PEEP Sodium Potassium Chloride Carbon Dioxide Anion Gap BUN Creatinine Est GFR ( Amer) Est GFR (Non-Af Amer) POC Glucose (mg/dL) 242 H Random Glucose Hemoglobin A1c Lactic Acid Calcium Phosphorus Magnesium Total Bilirubin AST ALT Alkaline Phosphatase Troponin I NT-Pro-B Natriuret Pep Total Protein Albumin Globulin Albumin/Globulin Ratio Triglycerides Cholesterol LDL Cholesterol Direct HDL Cholesterol Urine Color Urine Clarity Urine pH Ur Specific [place] Urine Protein Urine Glucose (UA) Urine Ketones Urine Blood Urine Nitrate Urine Bilirubin Urine Urobilinogen Ur Leukocyte Esterase Urine WBC (Auto) Urine RBC (Auto) Ur Squamous Epith Cells Urine Yeast (Budding) Urine Opiates Screen Urine Methadone Screen Ur Barbiturates Screen Ur Phencyclidine Scrn Ur Amphetamines Screen U Benzodiazepines Scrn U Oth Cocaine Metabols U Cannabinoids Screen Blood Type Antibody Screen 04/09/18 04/09/18 04/09/18 19:06 19:06 19:06 WBC RBC Hgb Hct MCV MCH MCHC RDW Plt Count MPV Neut % (Auto) Lymph % (Auto) [place] % (Auto) Eos % (Auto) Baso % (Auto) Neut # (Auto) Lymph # (Auto) [place] # (Auto) Eos # (Auto) Baso # (Auto) Neutrophils % (Manual) Band Neutrophils % Lymphocytes % (Manual) Monocytes % (Manual) Eosinophils % (Manual) Basophils % (Manual) Platelet Estimate Hypochromasia (manual) Poikilocytosis (manual Anisocytosis (manual) Target Cells PT INR APTT Puncture Site pCO2 pO2 HCO3 ABG pH ABG Total CO2 ABG O2 Saturation ABG Base Excess ABG Hemoglobin ABG Carboxyhemoglobin POC ABG HHb (Measured) ABG Methemoglobin Caesar Test A-a O2 Difference Respiratory Index Hgb O2 Saturation Vent Mode Mechanical Rate FiO2 Tidal Volume PEEP Sodium 140 Potassium 3.5 L Chloride 108 H Carbon Dioxide 24 Anion Gap 12 BUN 24 H Creatinine 0.9 Est GFR ( Amer) > 60 Est GFR (Non-Af Amer) > 60 POC Glucose (mg/dL) Random Glucose 222 H D Hemoglobin A1c 5.4 Lactic Acid Calcium 8.3 L Phosphorus Magnesium Total Bilirubin 0.3 AST 38 H ALT 31 Alkaline Phosphatase 75 Troponin I 0.0880 NT-Pro-B Natriuret Pep Total Protein 5.4 L Albumin 2.8 L D Globulin 2.6 Albumin/Globulin Ratio 1.1 Triglycerides 75 Cholesterol 164 LDL Cholesterol Direct 86 HDL Cholesterol 63 Urine Color Urine Clarity Urine pH Ur Specific [place] Urine Protein Urine Glucose (UA) Urine Ketones Urine Blood Urine Nitrate Urine Bilirubin Urine Urobilinogen Ur Leukocyte Esterase Urine WBC (Auto) Urine RBC (Auto) Ur Squamous Epith Cells Urine Yeast (Budding) Urine Opiates Screen Urine Methadone Screen Ur Barbiturates Screen Ur Phencyclidine Scrn Ur Amphetamines Screen U Benzodiazepines Scrn U Oth Cocaine Metabols U Cannabinoids Screen Blood Type O POSITIVE Antibody Screen Negative 04/09/18 04/09/18 04/10/18 19:45 20:02 01:06 WBC RBC Hgb Hct MCV MCH MCHC RDW Plt Count MPV Neut % (Auto) Lymph % (Auto) [place] % (Auto) Eos % (Auto) Baso % (Auto) Neut # (Auto) Lymph # (Auto) [place] # (Auto) Eos # (Auto) Baso # (Auto) Neutrophils % (Manual) Band Neutrophils % Lymphocytes % (Manual) Monocytes % (Manual) Eosinophils % (Manual) Basophils % (Manual) Platelet Estimate Hypochromasia (manual) Poikilocytosis (manual Anisocytosis (manual) Target Cells PT INR APTT Puncture Site Rba pCO2 58 H pO2 319 H HCO3 24.3 ABG pH 7.27 L ABG Total CO2 28.4 H ABG O2 Saturation 99.8 H ABG Base Excess -0.8 ABG Hemoglobin 9.3 L ABG Carboxyhemoglobin 2.1 H POC ABG HHb (Measured) 0.2 ABG Methemoglobin 1.6 Caesar Test Pos A-a O2 Difference 250.0 Respiratory Index 0.8 Hgb O2 Saturation 96.1 Vent Mode Prvc Mechanical Rate 16 FiO2 90.0 Tidal Volume 450 PEEP 5 Sodium Potassium Chloride Carbon Dioxide Anion Gap BUN Creatinine Est GFR ( Amer) Est GFR (Non-Af Amer) POC Glucose (mg/dL) 170 H Random Glucose Hemoglobin A1c Lactic Acid Calcium Phosphorus Magnesium Total Bilirubin AST ALT Alkaline Phosphatase Troponin I NT-Pro-B Natriuret Pep Total Protein Albumin Globulin Albumin/Globulin Ratio Triglycerides Cholesterol LDL Cholesterol Direct HDL Cholesterol Urine Color Urine Clarity Urine pH Ur Specific [place] Urine Protein Urine Glucose (UA) Urine Ketones Urine Blood Urine Nitrate Urine Bilirubin Urine Urobilinogen Ur Leukocyte Esterase Urine WBC (Auto) Urine RBC (Auto) Ur Squamous Epith Cells Urine Yeast (Budding) Urine Opiates Screen Negative Urine Methadone Screen Negative Ur Barbiturates Screen Negative Ur Phencyclidine Scrn Negative Ur Amphetamines Screen Negative U Benzodiazepines Scrn Negative U Oth Cocaine Metabols Negative U Cannabinoids Screen Negative Blood Type Antibody Screen 04/10/18 04/10/18 04/10/18 01:23 01:27 05:02 WBC RBC Hgb Hct MCV MCH MCHC RDW Plt Count MPV Neut % (Auto) Lymph % (Auto) [place] % (Auto) Eos % (Auto) Baso % (Auto) Neut # (Auto) Lymph # (Auto) [place] # (Auto) Eos # (Auto) Baso # (Auto) Neutrophils % (Manual) Band Neutrophils % Lymphocytes % (Manual) Monocytes % (Manual) Eosinophils % (Manual) Basophils % (Manual) Platelet Estimate Hypochromasia (manual) Poikilocytosis (manual Anisocytosis (manual) Target Cells PT INR APTT 28 D Puncture Site pCO2 pO2 HCO3 ABG pH ABG Total CO2 ABG O2 Saturation ABG Base Excess ABG Hemoglobin ABG Carboxyhemoglobin POC ABG HHb (Measured) ABG Methemoglobin Caesar Test A-a O2 Difference Respiratory Index Hgb O2 Saturation Vent Mode Mechanical Rate FiO2 Tidal Volume PEEP Sodium Potassium Chloride Carbon Dioxide Anion Gap BUN Creatinine Est GFR ( Amer) Est GFR (Non-Af Amer) POC Glucose (mg/dL) Random Glucose Hemoglobin A1c Lactic Acid 1.6 Calcium Phosphorus Magnesium Total Bilirubin AST ALT Alkaline Phosphatase Troponin I NT-Pro-B Natriuret Pep Total Protein Albumin Globulin Albumin/Globulin Ratio Triglycerides Cholesterol LDL Cholesterol Direct HDL Cholesterol Urine Color Yellow Urine Clarity Hazy Urine pH 7.0 Ur Specific [place] 1.018 Urine Protein Negative Urine Glucose (UA) 1+ Urine Ketones Negative Urine Blood 1+ H Urine Nitrate Negative Urine Bilirubin Negative Urine Urobilinogen Normal Ur Leukocyte Esterase Trace Urine WBC (Auto) 6 H Urine RBC (Auto) 6 H Ur Squamous Epith Cells < 1 Urine Yeast (Budding) Mod H Urine Opiates Screen Urine Methadone Screen Ur Barbiturates Screen Ur Phencyclidine Scrn Ur Amphetamines Screen U Benzodiazepines Scrn U Oth Cocaine Metabols U Cannabinoids Screen Blood Type Antibody Screen 04/10/18 04/10/18 04/10/18 05:13 05:38 06:11 WBC 20.1 H RBC 2.46 L Hgb 9.2 L Hct 28.1 L MCV 94.4 D MCH 37.3 H MCHC 32.7 L RDW 14.5 Plt Count 185 MPV 8.4 Neut % (Auto) 94.8 H Lymph % (Auto) 1.2 L [place] % (Auto) 3.0 Eos % (Auto) 0.0 Baso % (Auto) 1.0 Neut # (Auto) 19.0 H Lymph # (Auto) 0.2 L [place] # (Auto) 0.6 Eos # (Auto) 0.0 Baso # (Auto) 0.2 Neutrophils % (Manual) 90 H Band Neutrophils % 6 H Lymphocytes % (Manual) 2 L Monocytes % (Manual) 2 Eosinophils % (Manual) Basophils % (Manual) Platelet Estimate Normal Hypochromasia (manual) Slight Poikilocytosis (manual Slight Anisocytosis (manual) Slight Target Cells Slight PT INR APTT Puncture Site Rb pCO2 36 pO2 167 H HCO3 26.3 ABG pH 7.46 H ABG Total CO2 26.7 ABG O2 Saturation 99.1 H ABG Base Excess 1.8 ABG Hemoglobin 9.3 L ABG Carboxyhemoglobin 1.3 POC ABG HHb (Measured) 0.9 ABG Methemoglobin 1.0 Caesar Test Na A-a O2 Difference 73.0 Respiratory Index 0.4 Hgb O2 Saturation 96.7 Vent Mode Prvc Mechanical Rate 20 FiO2 40.0 Tidal Volume 450 PEEP 5 Sodium Potassium Chloride Carbon Dioxide Anion Gap BUN Creatinine Est GFR ( Amer) Est GFR (Non-Af Amer) POC Glucose (mg/dL) 153 H Random Glucose Hemoglobin A1c Lactic Acid Calcium Phosphorus Magnesium Total Bilirubin AST ALT Alkaline Phosphatase Troponin I NT-Pro-B Natriuret Pep Total Protein Albumin Globulin Albumin/Globulin Ratio Triglycerides Cholesterol LDL Cholesterol Direct HDL Cholesterol Urine Color Urine Clarity Urine pH Ur Specific [place] Urine Protein Urine Glucose (UA) Urine Ketones Urine Blood Urine Nitrate Urine Bilirubin Urine Urobilinogen Ur Leukocyte Esterase Urine WBC (Auto) Urine RBC (Auto) Ur Squamous Epith Cells Urine Yeast (Budding) Urine Opiates Screen Urine Methadone Screen Ur Barbiturates Screen Ur Phencyclidine Scrn Ur Amphetamines Screen U Benzodiazepines Scrn U Oth Cocaine Metabols U Cannabinoids Screen Blood Type Antibody Screen 04/10/18 04/10/18 06:11 11:35 WBC RBC Hgb Hct MCV MCH MCHC RDW Plt Count MPV Neut % (Auto) Lymph % (Auto) [place] % (Auto) Eos % (Auto) Baso % (Auto) Neut # (Auto) Lymph # (Auto) [place] # (Auto) Eos # (Auto) Baso # (Auto) Neutrophils % (Manual) Band Neutrophils % Lymphocytes % (Manual) Monocytes % (Manual) Eosinophils % (Manual) Basophils % (Manual) Platelet Estimate Hypochromasia (manual) Poikilocytosis (manual Anisocytosis (manual) Target Cells PT INR APTT Puncture Site pCO2 pO2 HCO3 ABG pH ABG Total CO2 ABG O2 Saturation ABG Base Excess ABG Hemoglobin ABG Carboxyhemoglobin POC ABG HHb (Measured) ABG Methemoglobin Caesar Test A-a O2 Difference Respiratory Index Hgb O2 Saturation Vent Mode Mechanical Rate FiO2 Tidal Volume PEEP Sodium 140 Potassium 3.5 L Chloride 108 H Carbon Dioxide 24 Anion Gap 12 BUN 22 H Creatinine 0.7 Est GFR ( Amer) > 60 Est GFR (Non-Af Amer) > 60 POC Glucose (mg/dL) 181 H Random Glucose 153 H D Hemoglobin A1c Lactic Acid Calcium 9.0 Phosphorus 3.5 Magnesium 1.9 Total Bilirubin 0.7 AST 24 ALT 32 Alkaline Phosphatase 87 Troponin I NT-Pro-B Natriuret Pep 6150 H Total Protein 5.6 L Albumin 3.0 L Globulin 2.6 Albumin/Globulin Ratio 1.1 Triglycerides Cholesterol LDL Cholesterol Direct HDL Cholesterol Urine Color Urine Clarity Urine pH Ur Specific [place] Urine Protein Urine Glucose (UA) Urine Ketones Urine Blood Urine Nitrate Urine Bilirubin Urine Urobilinogen Ur Leukocyte Esterase Urine WBC (Auto) Urine RBC (Auto) Ur Squamous Epith Cells Urine Yeast (Budding) Urine Opiates Screen Urine Methadone Screen Ur Barbiturates Screen Ur Phencyclidine Scrn Ur Amphetamines Screen U Benzodiazepines Scrn U Oth Cocaine Metabols U Cannabinoids Screen Blood Type Antibody Screen Assessment & Plan (1) Acute respiratory failure with hypoxia and hypercapnia Assessment and Plan: Acute respiratory failure with bilateral infiltrate and elevated white count/pleural BNP. thyroid mass with metastases to the bones and possible lung CHF/pneumonia Start IV Lasix and IV antibiotics Follow-up culture and sensitivity Cardiology follow-up wean as tolerated Status: Acute
--- NOTE | 2018-04-10 13:20 | CP.CCUPN ---
<Dionisio Zaragoza - Last Filed: 04/10/18 17:18> CCU Subjective - Physician Review Subjective (Free Text): ICU PGY-[address] Lafleur service Patient is seen and examined at bedside. Patient is intubated and OGT in place, is awake, requesting tube to be removed. Family at bedside. Patient extubated later in the day, on nonrebreather, toleraring well, able to speak. Chest xray today remarkable for right distal clavicular fracture, not seen on chest xray. Critical Care Time Spent (in minutes): 45 CCU Objective - Vital Signs / Intake & Output Vital Signs (Last 4 hours): Vital Signs BP 04/10/18 09:48 104/77 Intake and Output (Last 8hrs): Intake & Output 04/09/18 04/10/18 04/10/18 22:59 06:59 14:59 Intake Total 75 703.1 252.6 Output Total 350 625 895 Balance -275 78.1 -642.4 Weight 93 lb 1.6 oz 88 lb Intake: IV 32 0 Intake, IV Amount 75 670.1 162.6 Left Antecubital 75 626 150 Right Antecubital 44.1 12.6 TPN/PPN 1 Other 90 Output: Urine 350 625 895 Urethral ([place]) 350 625 895 Other: Voiding Method Indwelling Catheter - Physical Exam Head: Positive for: Atraumatic, Normocephalic Pupils: Positive for: PERRL Extroacular Muscles: Positive for: EOMI Conjunctiva: Positive for: Normal Mouth: Positive for: Moist Mucous Membranes Neck: Positive for: Normal Range of Motion Respiratory/Chest: Positive for: Good Air Exchange, Decreased Breath Sounds Abdomen: Positive for: Normal Bowel Sounds Upper Extremity: Positive for: Other (limited movement left upper extremity) Lower Extremity: Positive for: Edema Skin: Positive for: Warm, Normal Color Psychiatric: Positive for: Alert, Oriented x 3 - Medications Active Medications: Active Medications Generic Name Dose Route Start Last Admin Trade Name Freq PRN Reason Stop Dose Admin Albuterol/Ipratropium 3 ml 04/10/18 02:00 04/10/18 13:17 Duoneb 3 Mg/0.5 Mg (3 Ml) Ud INH 3 ml RQ6 RODRIGO Administration Amlodipine Besylate 10 mg 04/11/18 10:00 Norvasc PO DAILY [facility] Aspirin 81 mg 04/11/18 10:00 Aspirin Chewable PO DAILY [facility] Clopidogrel Bisulfate 75 mg 04/11/18 10:00 Plavix PO DAILY [facility] Dextrose 0 ml 04/09/18 23:39 Dextrose 50% Inj IV STAT PRN Hypoglycemia Protocol Protocol Dextrose 0 gm 04/09/18 23:39 Glutose 15 PO ONCE PRN Hypoglycemia Protocol Protocol Enoxaparin Sodium 30 mg 04/11/18 10:00 Lovenox SC DAILY [facility] Furosemide 40 mg 04/10/18 10:00 04/10/18 09:48 Lasix IVP 40 mg DAILY [facility] Administration Glucagon 0 mg 04/09/18 23:39 Glucagen Diagnostic Kit IM STAT PRN Hypoglycemia Protocol Protocol Heparin Sodium (Porcine) 5,000 units 04/09/18 23:45 04/10/18 05:29 Heparin SC 5,000 units Q8 RODRIGO Administration Piperacillin Sod/Tazobactam 100 mls @ 200 mls/hr 04/09/18 23:45 04/10/18 11:34 Sod 3.375 gm/ Sodium Chloride IVPB 200 mls/hr Q6H RODRIGO Administration Protocol Vancomycin HCl 1 gm/ Sodium 250 mls @ 166.7 mls/hr 04/09/18 23:45 04/10/18 01:55 Chloride IVPB 166.7 mls/hr Q24H RODRIGO Administration Protocol Dextrose 1,000 mls @ 0 mls/hr 04/09/18 23:39 Dextrose 5% In Water 1000 Ml IV .Q0M PRN Hypoglycemia Protocol Protocol Per Protocol Insulin Aspart 0 unit 04/09/18 23:45 04/10/18 11:37 Novolog SC Not Given Q6H [facility] Protocol Lisinopril 40 mg 04/11/18 10:00 Zestril PO DAILY [facility] Methylprednisolone 40 mg 04/10/18 10:31 04/10/18 10:52 Solu-Medrol IVP Not Given Q12H [facility] Pantoprazole Sodium 40 mg 04/10/18 10:00 04/10/18 11:00 Protonix Inj IVP 40 mg DAILY [facility] Administration Potassium Chloride 20 meq 04/11/18 10:00 K-Dur 20 Meq Er Tab PO DAILY [facility] Rosuvastatin Calcium 5 mg 04/10/18 22:00 Crestor PO RODRIGO - Patient Studies Lab Studies: Lab Studies 04/10/18 04/10/18 04/10/18 Range/Units 11:35 06:11 06:11 WBC 20.1 H (4.8-10.8) K/uL RBC 2.46 L (3.80-5.20) Mil/uL Hgb 9.2 L (11.0-16.0) g/dL Hct 28.1 L (34.0-47.0) % MCV 94.4 D (81.0-99.0) fL MCH 37.3 H (27.0-31.0) pg MCHC 32.7 L (33.0-37.0) g/dL RDW 14.5 (11.5-14.5) % Plt Count 185 (130-400) K/uL MPV 8.4 (7.2-11.7) fL Neut % (Auto) 94.8 H (50.0-75.0) % Lymph % (Auto) 1.2 L (20.0-40.0) % [place] % (Auto) 3.0 (0.0-10.0) % Eos % (Auto) 0.0 (0.0-4.0) % Baso % (Auto) 1.0 (0.0-2.0) % Neut # (Auto) 19.0 H (1.8-7.0) K/uL Lymph # (Auto) 0.2 L (1.0-4.3) K/uL [place] # (Auto) 0.6 (0.0-0.8) K/uL Eos # (Auto) 0.0 (0.0-0.7) K/uL Baso # (Auto) 0.2 (0.0-0.2) K/uL Neutrophils % (Manual) 90 H (50-75) % Band Neutrophils % 6 H (0-2) % Lymphocytes % (Manual) 2 L (20-40) % Monocytes % (Manual) 2 (0-10) % Eosinophils % (Manual) (0-4) % Basophils % (Manual) (0-2) % Platelet Estimate Normal (NORMAL) Hypochromasia (manual) Slight Poikilocytosis (manual Slight Anisocytosis (manual) Slight Target Cells Slight PT (9.7-12.2) SECONDS INR APTT (21-34) SECONDS Puncture Site pCO2 (35-45) mm/Hg pO2 (80-100) mm/Hg HCO3 (21-28) mmol/L ABG pH (7.35-7.45) ABG Total CO2 (22-28) mmol/L ABG O2 Saturation (95-98) % ABG Base Excess (-2.0-3.0) mmol/L ABG Hemoglobin (11.7-17.4) g/dL ABG Carboxyhemoglobin (0.5-1.5) % POC ABG HHb (Measured) (0.0-5.0) % ABG Methemoglobin (0.0-3.0) % Caesar Test A-a O2 Difference mm/Hg Respiratory Index Hgb O2 Saturation (95.0-98.0) % Vent Mode Mechanical Rate FiO2 % Tidal Volume PEEP Sodium 140 (132-148) mmol/L Potassium 3.5 L (3.6-5.2) mmol/L Chloride 108 H (98-107) mmol/L Carbon Dioxide 24 (22-30) mmol/L Anion Gap 12 (10-20) BUN 22 H (7-17) mg/dL Creatinine 0.7 (0.7-1.2) mg/dL Est GFR ( Amer) > 60 Est GFR (Non-Af Amer) > 60 POC Glucose (mg/dL) 181 H (65-110) mg/dL Random Glucose 153 H D (65-105) mg/dL Hemoglobin A1c (4.2-6.5) % Lactic Acid (0.7-2.1) mmol/L Calcium 9.0 (8.6-10.4) mg/dl Phosphorus 3.5 (2.5-4.5) mg/dL Magnesium 1.9 (1.6-2.3) mg/dL Total Bilirubin 0.7 (0.2-1.3) mg/dL AST 24 (14-36) U/L ALT 32 (9-52) U/L Alkaline Phosphatase 87 (38-126) U/L Troponin I (0.00-0.120) ng/mL NT-Pro-B Natriuret Pep 6150 H (0-900) pg/mL Total Protein 5.6 L (6.3-8.3) g/dL Albumin 3.0 L (3.5-5.0) g/dL Globulin 2.6 (2.2-3.9) gm/dL Albumin/Globulin Ratio 1.1 (1.0-2.1) Triglycerides (0-149) mg/dL Cholesterol (0-199) mg/dL LDL Cholesterol Direct (0-129) mg/dL HDL Cholesterol (30-70) mg/dL Urine Color (YELLOW) Urine Clarity (Clear) Urine pH (5.0-8.0) Ur Specific [place] (1.003-1.030) Urine Protein (NEGATIVE) mg/dL Urine Glucose (UA) (Normal) mg/dL Urine Ketones (NEGATIVE) mg/dL Urine Blood (NEGATIVE) Urine Nitrate (NEGATIVE) Urine Bilirubin (NEGATIVE) Urine Urobilinogen (0.2-1.0) mg/dL Ur Leukocyte Esterase (Negative) Haley/uL Urine WBC (Auto) (0-5) /hpf Urine RBC (Auto) (0-3) /hpf Ur Squamous Epith Cells (0-5) /hpf Urine Yeast (Budding) (NEGATIVE) /hpf Urine Opiates Screen (NEGATIVE) Urine Methadone Screen (NEGATIVE) Ur Barbiturates Screen (NEGATIVE) Ur Phencyclidine Scrn (NEGATIVE) Ur Amphetamines Screen (NEGATIVE) U Benzodiazepines Scrn (NEGATIVE) U Oth Cocaine Metabols (NEGATIVE) U Cannabinoids Screen (NEGATIVE) Blood Type Antibody Screen 04/10/18 04/10/18 04/10/18 Range/Units 05:38 05:13 05:02 WBC (4.8-10.8) K/uL RBC (3.80-5.20) Mil/uL Hgb (11.0-16.0) g/dL Hct (34.0-47.0) % MCV (81.0-99.0) fL MCH (27.0-31.0) pg MCHC (33.0-37.0) g/dL RDW (11.5-14.5) % Plt Count (130-400) K/uL MPV (7.2-11.7) fL Neut % (Auto) (50.0-75.0) % Lymph % (Auto) (20.0-40.0) % [place] % (Auto) (0.0-10.0) % Eos % (Auto) (0.0-4.0) % Baso % (Auto) (0.0-2.0) % Neut # (Auto) (1.8-7.0) K/uL Lymph # (Auto) (1.0-4.3) K/uL [place] # (Auto) (0.0-0.8) K/uL Eos # (Auto) (0.0-0.7) K/uL Baso # (Auto) (0.0-0.2) K/uL Neutrophils % (Manual) (50-75) % Band Neutrophils % (0-2) % Lymphocytes % (Manual) (20-40) % Monocytes % (Manual) (0-10) % Eosinophils % (Manual) (0-4) % Basophils % (Manual) (0-2) % Platelet Estimate (NORMAL) Hypochromasia (manual) Poikilocytosis (manual Anisocytosis (manual) Target Cells PT (9.7-12.2) SECONDS INR APTT (21-34) SECONDS Puncture Site Rb pCO2 36 (35-45) mm/Hg pO2 167 H (80-100) mm/Hg HCO3 26.3 (21-28) mmol/L ABG pH 7.46 H (7.35-7.45) ABG Total CO2 26.7 (22-28) mmol/L ABG O2 Saturation 99.1 H (95-98) % ABG Base Excess 1.8 (-2.0-3.0) mmol/L ABG Hemoglobin 9.3 L (11.7-17.4) g/dL ABG Carboxyhemoglobin 1.3 (0.5-1.5) % POC ABG HHb (Measured) 0.9 (0.0-5.0) % ABG Methemoglobin 1.0 (0.0-3.0) % Caesar Test Na A-a O2 Difference 73.0 mm/Hg Respiratory Index 0.4 Hgb O2 Saturation 96.7 (95.0-98.0) % Vent Mode Prvc Mechanical Rate 20 FiO2 40.0 % Tidal Volume 450 PEEP 5 Sodium (132-148) mmol/L Potassium (3.6-5.2) mmol/L Chloride (98-107) mmol/L Carbon Dioxide (22-30) mmol/L Anion Gap (10-20) BUN (7-17) mg/dL Creatinine (0.7-1.2) mg/dL Est GFR ( Amer) Est GFR (Non-Af Amer) POC Glucose (mg/dL) 153 H (65-110) mg/dL Random Glucose (65-105) mg/dL Hemoglobin A1c (4.2-6.5) % Lactic Acid (0.7-2.1) mmol/L Calcium (8.6-10.4) mg/dl Phosphorus (2.5-4.5) mg/dL Magnesium (1.6-2.3) mg/dL Total Bilirubin (0.2-1.3) mg/dL AST (14-36) U/L ALT (9-52) U/L Alkaline Phosphatase (38-126) U/L Troponin I (0.00-0.120) ng/mL NT-Pro-B Natriuret Pep (0-900) pg/mL Total Protein (6.3-8.3) g/dL Albumin (3.5-5.0) g/dL Globulin (2.2-3.9) gm/dL Albumin/Globulin Ratio (1.0-2.1) Triglycerides (0-149) mg/dL Cholesterol (0-199) mg/dL LDL Cholesterol Direct (0-129) mg/dL HDL Cholesterol (30-70) mg/dL Urine Color Yellow (YELLOW) Urine Clarity Hazy (Clear) Urine pH 7.0 (5.0-8.0) Ur Specific [place] 1.018 (1.003-1.030) Urine Protein Negative (NEGATIVE) mg/dL Urine Glucose (UA) 1+ (Normal) mg/dL Urine Ketones Negative (NEGATIVE) mg/dL Urine Blood 1+ H (NEGATIVE) Urine Nitrate Negative (NEGATIVE) Urine Bilirubin Negative (NEGATIVE) Urine Urobilinogen Normal (0.2-1.0) mg/dL Ur Leukocyte Esterase Trace (Negative) Haley/uL Urine WBC (Auto) 6 H (0-5) /hpf Urine RBC (Auto) 6 H (0-3) /hpf Ur Squamous Epith Cells < 1 (0-5) /hpf Urine Yeast (Budding) Mod H (NEGATIVE) /hpf Urine Opiates Screen (NEGATIVE) Urine Methadone Screen (NEGATIVE) Ur Barbiturates Screen (NEGATIVE) Ur Phencyclidine Scrn (NEGATIVE) Ur Amphetamines Screen (NEGATIVE) U Benzodiazepines Scrn (NEGATIVE) U Oth Cocaine Metabols (NEGATIVE) U Cannabinoids Screen (NEGATIVE) Blood Type Antibody Screen 04/10/18 04/10/18 04/10/18 Range/Units 01:27 01:23 01:06 WBC (4.8-10.8) K/uL RBC (3.80-5.20) Mil/uL Hgb (11.0-16.0) g/dL Hct (34.0-47.0) % MCV (81.0-99.0) fL MCH (27.0-31.0) pg MCHC (33.0-37.0) g/dL RDW (11.5-14.5) % Plt Count (130-400) K/uL MPV (7.2-11.7) fL Neut % (Auto) (50.0-75.0) % Lymph % (Auto) (20.0-40.0) % [place] % (Auto) (0.0-10.0) % Eos % (Auto) (0.0-4.0) % Baso % (Auto) (0.0-2.0) % Neut # (Auto) (1.8-7.0) K/uL Lymph # (Auto) (1.0-4.3) K/uL [place] # (Auto) (0.0-0.8) K/uL Eos # (Auto) (0.0-0.7) K/uL Baso # (Auto) (0.0-0.2) K/uL Neutrophils % (Manual) (50-75) % Band Neutrophils % (0-2) % Lymphocytes % (Manual) (20-40) % Monocytes % (Manual) (0-10) % Eosinophils % (Manual) (0-4) % Basophils % (Manual) (0-2) % Platelet Estimate (NORMAL) Hypochromasia (manual) Poikilocytosis (manual Anisocytosis (manual) Target Cells PT (9.7-12.2) SECONDS INR APTT 28 D (21-34) SECONDS Puncture Site pCO2 (35-45) mm/Hg pO2 (80-100) mm/Hg HCO3 (21-28) mmol/L ABG pH (7.35-7.45) ABG Total CO2 (22-28) mmol/L ABG O2 Saturation (95-98) % ABG Base Excess (-2.0-3.0) mmol/L ABG Hemoglobin (11.7-17.4) g/dL ABG Carboxyhemoglobin (0.5-1.5) % POC ABG HHb (Measured) (0.0-5.0) % ABG Methemoglobin (0.0-3.0) % Caesar Test A-a O2 Difference mm/Hg Respiratory Index Hgb O2 Saturation (95.0-98.0) % Vent Mode Mechanical Rate FiO2 % Tidal Volume PEEP Sodium (132-148) mmol/L Potassium (3.6-5.2) mmol/L Chloride (98-107) mmol/L Carbon Dioxide (22-30) mmol/L Anion Gap (10-20) BUN (7-17) mg/dL Creatinine (0.7-1.2) mg/dL Est GFR ( Amer) Est GFR (Non-Af Amer) POC Glucose (mg/dL) 170 H (65-110) mg/dL Random Glucose (65-105) mg/dL Hemoglobin A1c (4.2-6.5) % Lactic Acid 1.6 (0.7-2.1) mmol/L Calcium (8.6-10.4) mg/dl Phosphorus (2.5-4.5) mg/dL Magnesium (1.6-2.3) mg/dL Total Bilirubin (0.2-1.3) mg/dL AST (14-36) U/L ALT (9-52) U/L Alkaline Phosphatase (38-126) U/L Troponin I (0.00-0.120) ng/mL NT-Pro-B Natriuret Pep (0-900) pg/mL Total Protein (6.3-8.3) g/dL Albumin (3.5-5.0) g/dL Globulin (2.2-3.9) gm/dL Albumin/Globulin Ratio (1.0-2.1) Triglycerides (0-149) mg/dL Cholesterol (0-199) mg/dL LDL Cholesterol Direct (0-129) mg/dL HDL Cholesterol (30-70) mg/dL Urine Color (YELLOW) Urine Clarity (Clear) Urine pH (5.0-8.0) Ur Specific [place] (1.003-1.030) Urine Protein (NEGATIVE) mg/dL Urine Glucose (UA) (Normal) mg/dL Urine Ketones (NEGATIVE) mg/dL Urine Blood (NEGATIVE) Urine Nitrate (NEGATIVE) Urine Bilirubin (NEGATIVE) Urine Urobilinogen (0.2-1.0) mg/dL Ur Leukocyte Esterase (Negative) Haley/uL Urine WBC (Auto) (0-5) /hpf Urine RBC (Auto) (0-3) /hpf Ur Squamous Epith Cells (0-5) /hpf Urine Yeast (Budding) (NEGATIVE) /hpf Urine Opiates Screen (NEGATIVE) Urine Methadone Screen (NEGATIVE) Ur Barbiturates Screen (NEGATIVE) Ur Phencyclidine Scrn (NEGATIVE) Ur Amphetamines Screen (NEGATIVE) U Benzodiazepines Scrn (NEGATIVE) U Oth Cocaine Metabols (NEGATIVE) U Cannabinoids Screen (NEGATIVE) Blood Type Antibody Screen 04/09/18 04/09/18 04/09/18 Range/Units 20:02 19:45 19:06 WBC (4.8-10.8) K/uL RBC (3.80-5.20) Mil/uL Hgb (11.0-16.0) g/dL Hct (34.0-47.0) % MCV (81.0-99.0) fL MCH (27.0-31.0) pg MCHC (33.0-37.0) g/dL RDW (11.5-14.5) % Plt Count (130-400) K/uL MPV (7.2-11.7) fL Neut % (Auto) (50.0-75.0) % Lymph % (Auto) (20.0-40.0) % [place] % (Auto) (0.0-10.0) % Eos % (Auto) (0.0-4.0) % Baso % (Auto) (0.0-2.0) % Neut # (Auto) (1.8-7.0) K/uL Lymph # (Auto) (1.0-4.3) K/uL [place] # (Auto) (0.0-0.8) K/uL Eos # (Auto) (0.0-0.7) K/uL Baso # (Auto) (0.0-0.2) K/uL Neutrophils % (Manual) (50-75) % Band Neutrophils % (0-2) % Lymphocytes % (Manual) (20-40) % Monocytes % (Manual) (0-10) % Eosinophils % (Manual) (0-4) % Basophils % (Manual) (0-2) % Platelet Estimate (NORMAL) Hypochromasia (manual) Poikilocytosis (manual Anisocytosis (manual) Target Cells PT (9.7-12.2) SECONDS INR APTT (21-34) SECONDS Puncture Site Rba pCO2 58 H (35-45) mm/Hg pO2 319 H (80-100) mm/Hg HCO3 24.3 (21-28) mmol/L ABG pH 7.27 L (7.35-7.45) ABG Total CO2 28.4 H (22-28) mmol/L ABG O2 Saturation 99.8 H (95-98) % ABG Base Excess -0.8 (-2.0-3.0) mmol/L ABG Hemoglobin 9.3 L (11.7-17.4) g/dL ABG Carboxyhemoglobin 2.1 H (0.5-1.5) % POC ABG HHb (Measured) 0.2 (0.0-5.0) % ABG Methemoglobin 1.6 (0.0-3.0) % Caesar Test Pos A-a O2 Difference 250.0 mm/Hg Respiratory Index 0.8 Hgb O2 Saturation 96.1 (95.0-98.0) % Vent Mode Prvc Mechanical Rate 16 FiO2 90.0 % Tidal Volume 450 PEEP 5 Sodium (132-148) mmol/L Potassium (3.6-5.2) mmol/L Chloride (98-107) mmol/L Carbon Dioxide (22-30) mmol/L Anion Gap (10-20) BUN (7-17) mg/dL Creatinine (0.7-1.2) mg/dL Est GFR ( Amer) Est GFR (Non-Af Amer) POC Glucose (mg/dL) (65-110) mg/dL Random Glucose (65-105) mg/dL Hemoglobin A1c (4.2-6.5) % Lactic Acid (0.7-2.1) mmol/L Calcium (8.6-10.4) mg/dl Phosphorus (2.5-4.5) mg/dL Magnesium (1.6-2.3) mg/dL Total Bilirubin (0.2-1.3) mg/dL AST (14-36) U/L ALT (9-52) U/L Alkaline Phosphatase (38-126) U/L Troponin I (0.00-0.120) ng/mL NT-Pro-B Natriuret Pep (0-900) pg/mL Total Protein (6.3-8.3) g/dL Albumin (3.5-5.0) g/dL Globulin (2.2-3.9) gm/dL Albumin/Globulin Ratio (1.0-2.1) Triglycerides (0-149) mg/dL Cholesterol (0-199) mg/dL LDL Cholesterol Direct (0-129) mg/dL HDL Cholesterol (30-70) mg/dL Urine Color (YELLOW) Urine Clarity (Clear) Urine pH (5.0-8.0) Ur Specific [place] (1.003-1.030) Urine Protein (NEGATIVE) mg/dL Urine Glucose (UA) (Normal) mg/dL Urine Ketones (NEGATIVE) mg/dL Urine Blood (NEGATIVE) Urine Nitrate (NEGATIVE) Urine Bilirubin (NEGATIVE) Urine Urobilinogen (0.2-1.0) mg/dL Ur Leukocyte Esterase (Negative) Haley/uL Urine WBC (Auto) (0-5) /hpf Urine RBC (Auto) (0-3) /hpf Ur Squamous Epith Cells (0-5) /hpf Urine Yeast (Budding) (NEGATIVE) /hpf Urine Opiates Screen Negative (NEGATIVE) Urine Methadone Screen Negative (NEGATIVE) Ur Barbiturates Screen Negative (NEGATIVE) Ur Phencyclidine Scrn Negative (NEGATIVE) Ur Amphetamines Screen Negative (NEGATIVE) U Benzodiazepines Scrn Negative (NEGATIVE) U Oth Cocaine Metabols Negative (NEGATIVE) U Cannabinoids Screen Negative (NEGATIVE) Blood Type O POSITIVE Antibody Screen Negative 04/09/18 04/09/18 04/09/18 Range/Units 19:06 19:06 19:06 WBC (4.8-10.8) K/uL RBC (3.80-5.20) Mil/uL Hgb (11.0-16.0) g/dL Hct (34.0-47.0) % MCV (81.0-99.0) fL MCH (27.0-31.0) pg MCHC (33.0-37.0) g/dL RDW (11.5-14.5) % Plt Count (130-400) K/uL MPV (7.2-11.7) fL Neut % (Auto) (50.0-75.0) % Lymph % (Auto) (20.0-40.0) % [place] % (Auto) (0.0-10.0) % Eos % (Auto) (0.0-4.0) % Baso % (Auto) (0.0-2.0) % Neut # (Auto) (1.8-7.0) K/uL Lymph # (Auto) (1.0-4.3) K/uL [place] # (Auto) (0.0-0.8) K/uL Eos # (Auto) (0.0-0.7) K/uL Baso # (Auto) (0.0-0.2) K/uL Neutrophils % (Manual) (50-75) % Band Neutrophils % (0-2) % Lymphocytes % (Manual) (20-40) % Monocytes % (Manual) (0-10) % Eosinophils % (Manual) (0-4) % Basophils % (Manual) (0-2) % Platelet Estimate (NORMAL) Hypochromasia (manual) Poikilocytosis (manual Anisocytosis (manual) Target Cells PT 12.2 (9.7-12.2) SECONDS INR 1.1 APTT 36 H (21-34) SECONDS Puncture Site pCO2 (35-45) mm/Hg pO2 (80-100) mm/Hg HCO3 (21-28) mmol/L ABG pH (7.35-7.45) ABG Total CO2 (22-28) mmol/L ABG O2 Saturation (95-98) % ABG Base Excess (-2.0-3.0) mmol/L ABG Hemoglobin (11.7-17.4) g/dL ABG Carboxyhemoglobin (0.5-1.5) % POC ABG HHb (Measured) (0.0-5.0) % ABG Methemoglobin (0.0-3.0) % Caesar Test A-a O2 Difference mm/Hg Respiratory Index Hgb O2 Saturation (95.0-98.0) % Vent Mode Mechanical Rate FiO2 % Tidal Volume PEEP Sodium 140 (132-148) mmol/L Potassium 3.5 L (3.6-5.2) mmol/L Chloride 108 H (98-107) mmol/L Carbon Dioxide 24 (22-30) mmol/L Anion Gap 12 (10-20) BUN 24 H (7-17) mg/dL Creatinine 0.9 (0.7-1.2) mg/dL Est GFR ( Amer) > 60 Est GFR (Non-Af Amer) > 60 POC Glucose (mg/dL) (65-110) mg/dL Random Glucose 222 H D (65-105) mg/dL Hemoglobin A1c 5.4 (4.2-6.5) % Lactic Acid (0.7-2.1) mmol/L Calcium 8.3 L (8.6-10.4) mg/dl Phosphorus (2.5-4.5) mg/dL Magnesium (1.6-2.3) mg/dL Total Bilirubin 0.3 (0.2-1.3) mg/dL AST 38 H (14-36) U/L ALT 31 (9-52) U/L Alkaline Phosphatase 75 (38-126) U/L Troponin I 0.0880 (0.00-0.120) ng/mL NT-Pro-B Natriuret Pep (0-900) pg/mL Total Protein 5.4 L (6.3-8.3) g/dL Albumin 2.8 L D (3.5-5.0) g/dL Globulin 2.6 (2.2-3.9) gm/dL Albumin/Globulin Ratio 1.1 (1.0-2.1) Triglycerides 75 (0-149) mg/dL Cholesterol 164 (0-199) mg/dL LDL Cholesterol Direct 86 (0-129) mg/dL HDL Cholesterol 63 (30-70) mg/dL Urine Color (YELLOW) Urine Clarity (Clear) Urine pH (5.0-8.0) Ur Specific [place] (1.003-1.030) Urine Protein (NEGATIVE) mg/dL Urine Glucose (UA) (Normal) mg/dL Urine Ketones (NEGATIVE) mg/dL Urine Blood (NEGATIVE) Urine Nitrate (NEGATIVE) Urine Bilirubin (NEGATIVE) Urine Urobilinogen (0.2-1.0) mg/dL Ur Leukocyte Esterase (Negative) Haley/uL Urine WBC (Auto) (0-5) /hpf Urine RBC (Auto) (0-3) /hpf Ur Squamous Epith Cells (0-5) /hpf Urine Yeast (Budding) (NEGATIVE) /hpf Urine Opiates Screen (NEGATIVE) Urine Methadone Screen (NEGATIVE) Ur Barbiturates Screen (NEGATIVE) Ur Phencyclidine Scrn (NEGATIVE) Ur Amphetamines Screen (NEGATIVE) U Benzodiazepines Scrn (NEGATIVE) U Oth Cocaine Metabols (NEGATIVE) U Cannabinoids Screen (NEGATIVE) Blood Type Antibody Screen 04/09/18 04/09/18 Range/Units 19:06 18:58 WBC 16.9 H (4.8-10.8) K/uL RBC 3.11 L (3.80-5.20) Mil/uL Hgb 9.7 L (11.0-16.0) g/dL Hct 30.3 L (34.0-47.0) % MCV 97.3 D (81.0-99.0) fL MCH 31.3 H (27.0-31.0) pg MCHC 32.1 L (33.0-37.0) g/dL RDW 14.1 (11.5-14.5) % Plt Count 260 D (130-400) K/uL MPV 7.9 (7.2-11.7) fL Neut % (Auto) 84.2 H (50.0-75.0) % Lymph % (Auto) 5.8 L (20.0-40.0) % [place] % (Auto) 5.0 (0.0-10.0) % Eos % (Auto) 4.4 H (0.0-4.0) % Baso % (Auto) 0.6 (0.0-2.0) % Neut # (Auto) 14.2 H (1.8-7.0) K/uL Lymph # (Auto) 1.0 (1.0-4.3) K/uL [place] # (Auto) 0.8 (0.0-0.8) K/uL Eos # (Auto) 0.7 (0.0-0.7) K/uL Baso # (Auto) 0.1 (0.0-0.2) K/uL Neutrophils % (Manual) 76 H (50-75) % Band Neutrophils % 6 H (0-2) % Lymphocytes % (Manual) 11 L (20-40) % Monocytes % (Manual) 2 (0-10) % Eosinophils % (Manual) 4 (0-4) % Basophils % (Manual) 1 (0-2) % Platelet Estimate Normal (NORMAL) Hypochromasia (manual) Poikilocytosis (manual Anisocytosis (manual) Target Cells PT (9.7-12.2) SECONDS INR APTT (21-34) SECONDS Puncture Site pCO2 (35-45) mm/Hg pO2 (80-100) mm/Hg HCO3 (21-28) mmol/L ABG pH (7.35-7.45) ABG Total CO2 (22-28) mmol/L ABG O2 Saturation (95-98) % ABG Base Excess (-2.0-3.0) mmol/L ABG Hemoglobin (11.7-17.4) g/dL ABG Carboxyhemoglobin (0.5-1.5) % POC ABG HHb (Measured) (0.0-5.0) % ABG Methemoglobin (0.0-3.0) % Caesar Test A-a O2 Difference mm/Hg Respiratory Index Hgb O2 Saturation (95.0-98.0) % Vent Mode Mechanical Rate FiO2 % Tidal Volume PEEP Sodium (132-148) mmol/L Potassium (3.6-5.2) mmol/L Chloride (98-107) mmol/L Carbon Dioxide (22-30) mmol/L Anion Gap (10-20) BUN (7-17) mg/dL Creatinine (0.7-1.2) mg/dL Est GFR ( Amer) Est GFR (Non-Af Amer) POC Glucose (mg/dL) 242 H (65-110) mg/dL Random Glucose (65-105) mg/dL Hemoglobin A1c (4.2-6.5) % Lactic Acid (0.7-2.1) mmol/L Calcium (8.6-10.4) mg/dl Phosphorus (2.5-4.5) mg/dL Magnesium (1.6-2.3) mg/dL Total Bilirubin (0.2-1.3) mg/dL AST (14-36) U/L ALT (9-52) U/L Alkaline Phosphatase (38-126) U/L Troponin I (0.00-0.120) ng/mL NT-Pro-B Natriuret Pep (0-900) pg/mL Total Protein (6.3-8.3) g/dL Albumin (3.5-5.0) g/dL Globulin (2.2-3.9) gm/dL Albumin/Globulin Ratio (1.0-2.1) Triglycerides (0-149) mg/dL Cholesterol (0-199) mg/dL LDL Cholesterol Direct (0-129) mg/dL HDL Cholesterol (30-70) mg/dL Urine Color (YELLOW) Urine Clarity (Clear) Urine pH (5.0-8.0) Ur Specific [place] (1.003-1.030) Urine Protein (NEGATIVE) mg/dL Urine Glucose (UA) (Normal) mg/dL Urine Ketones (NEGATIVE) mg/dL Urine Blood (NEGATIVE) Urine Nitrate (NEGATIVE) Urine Bilirubin (NEGATIVE) Urine Urobilinogen (0.2-1.0) mg/dL Ur Leukocyte Esterase (Negative) Haley/uL Urine WBC (Auto) (0-5) /hpf Urine RBC (Auto) (0-3) /hpf Ur Squamous Epith Cells (0-5) /hpf Urine Yeast (Budding) (NEGATIVE) /hpf Urine Opiates Screen (NEGATIVE) Urine Methadone Screen (NEGATIVE) Ur Barbiturates Screen (NEGATIVE) Ur Phencyclidine Scrn (NEGATIVE) Ur Amphetamines Screen (NEGATIVE) U Benzodiazepines Scrn (NEGATIVE) U Oth Cocaine Metabols (NEGATIVE) U Cannabinoids Screen (NEGATIVE) Blood Type Antibody Screen Laboratory Results - last 24 hr 04/09/18 04/09/18 04/09/18 18:58 19:06 19:06 WBC 16.9 H RBC 3.11 L Hgb 9.7 L Hct 30.3 L MCV 97.3 D MCH 31.3 H MCHC 32.1 L RDW 14.1 Plt Count 260 D MPV 7.9 Neut % (Auto) 84.2 H Lymph % (Auto) 5.8 L [place] % (Auto) 5.0 Eos % (Auto) 4.4 H Baso % (Auto) 0.6 Neut # (Auto) 14.2 H Lymph # (Auto) 1.0 [place] # (Auto) 0.8 Eos # (Auto) 0.7 Baso # (Auto) 0.1 Neutrophils % (Manual) 76 H Band Neutrophils % 6 H Lymphocytes % (Manual) 11 L Monocytes % (Manual) 2 Eosinophils % (Manual) 4 Basophils % (Manual) 1 Platelet Estimate Normal Hypochromasia (manual) Poikilocytosis (manual Anisocytosis (manual) Target Cells PT 12.2 INR 1.1 APTT 36 H Puncture Site pCO2 pO2 HCO3 ABG pH ABG Total CO2 ABG O2 Saturation ABG Base Excess ABG Hemoglobin ABG Carboxyhemoglobin POC ABG HHb (Measured) ABG Methemoglobin Caesar Test A-a O2 Difference Respiratory Index Hgb O2 Saturation Vent Mode Mechanical Rate FiO2 Tidal Volume PEEP Sodium Potassium Chloride Carbon Dioxide Anion Gap BUN Creatinine Est GFR ( Amer) Est GFR (Non-Af Amer) POC Glucose (mg/dL) 242 H Random Glucose Hemoglobin A1c Lactic Acid Calcium Phosphorus Magnesium Total Bilirubin AST ALT Alkaline Phosphatase Troponin I NT-Pro-B Natriuret Pep Total Protein Albumin Globulin Albumin/Globulin Ratio Triglycerides Cholesterol LDL Cholesterol Direct HDL Cholesterol Urine Color Urine Clarity Urine pH Ur Specific [place] Urine Protein Urine Glucose (UA) Urine Ketones Urine Blood Urine Nitrate Urine Bilirubin Urine Urobilinogen Ur Leukocyte Esterase Urine WBC (Auto) Urine RBC (Auto) Ur Squamous Epith Cells Urine Yeast (Budding) Urine Opiates Screen Urine Methadone Screen Ur Barbiturates Screen Ur Phencyclidine Scrn Ur Amphetamines Screen U Benzodiazepines Scrn U Oth Cocaine Metabols U Cannabinoids Screen Blood Type Antibody Screen 04/09/18 04/09/18 04/09/18 19:06 19:06 19:06 WBC RBC Hgb Hct MCV MCH MCHC RDW Plt Count MPV Neut % (Auto) Lymph % (Auto) [place] % (Auto) Eos % (Auto) Baso % (Auto) Neut # (Auto) Lymph # (Auto) [place] # (Auto) Eos # (Auto) Baso # (Auto) Neutrophils % (Manual) Band Neutrophils % Lymphocytes % (Manual) Monocytes % (Manual) Eosinophils % (Manual) Basophils % (Manual) Platelet Estimate Hypochromasia (manual) Poikilocytosis (manual Anisocytosis (manual) Target Cells PT INR APTT Puncture Site pCO2 pO2 HCO3 ABG pH ABG Total CO2 ABG O2 Saturation ABG Base Excess ABG Hemoglobin ABG Carboxyhemoglobin POC ABG HHb (Measured) ABG Methemoglobin Caesar Test A-a O2 Difference Respiratory Index Hgb O2 Saturation Vent Mode Mechanical Rate FiO2 Tidal Volume PEEP Sodium 140 Potassium 3.5 L Chloride 108 H Carbon Dioxide 24 Anion Gap 12 BUN 24 H Creatinine 0.9 Est GFR ( Amer) > 60 Est GFR (Non-Af Amer) > 60 POC Glucose (mg/dL) Random Glucose 222 H D Hemoglobin A1c 5.4 Lactic Acid Calcium 8.3 L Phosphorus Magnesium Total Bilirubin 0.3 AST 38 H ALT 31 Alkaline Phosphatase 75 Troponin I 0.0880 NT-Pro-B Natriuret Pep Total Protein 5.4 L Albumin 2.8 L D Globulin 2.6 Albumin/Globulin Ratio 1.1 Triglycerides 75 Cholesterol 164 LDL Cholesterol Direct 86 HDL Cholesterol 63 Urine Color Urine Clarity Urine pH Ur Specific [place] Urine Protein Urine Glucose (UA) Urine Ketones Urine Blood Urine Nitrate Urine Bilirubin Urine Urobilinogen Ur Leukocyte Esterase Urine WBC (Auto) Urine RBC (Auto) Ur Squamous Epith Cells Urine Yeast (Budding) Urine Opiates Screen Urine Methadone Screen Ur Barbiturates Screen Ur Phencyclidine Scrn Ur Amphetamines Screen U Benzodiazepines Scrn U Oth Cocaine Metabols U Cannabinoids Screen Blood Type O POSITIVE Antibody Screen Negative 04/09/18 04/09/18 04/10/18 19:45 20:02 01:06 WBC RBC Hgb Hct MCV MCH MCHC RDW Plt Count MPV Neut % (Auto) Lymph % (Auto) [place] % (Auto) Eos % (Auto) Baso % (Auto) Neut # (Auto) Lymph # (Auto) [place] # (Auto) Eos # (Auto) Baso # (Auto) Neutrophils % (Manual) Band Neutrophils % Lymphocytes % (Manual) Monocytes % (Manual) Eosinophils % (Manual) Basophils % (Manual) Platelet Estimate Hypochromasia (manual) Poikilocytosis (manual Anisocytosis (manual) Target Cells PT INR APTT Puncture Site Rba pCO2 58 H pO2 319 H HCO3 24.3 ABG pH 7.27 L ABG Total CO2 28.4 H ABG O2 Saturation 99.8 H ABG Base Excess -0.8 ABG Hemoglobin 9.3 L ABG Carboxyhemoglobin 2.1 H POC ABG HHb (Measured) 0.2 ABG Methemoglobin 1.6 Caesar Test Pos A-a O2 Difference 250.0 Respiratory Index 0.8 Hgb O2 Saturation 96.1 Vent Mode Prvc Mechanical Rate 16 FiO2 90.0 Tidal Volume 450 PEEP 5 Sodium Potassium Chloride Carbon Dioxide Anion Gap BUN Creatinine Est GFR ( Amer) Est GFR (Non-Af Amer) POC Glucose (mg/dL) 170 H Random Glucose Hemoglobin A1c Lactic Acid Calcium Phosphorus Magnesium Total Bilirubin AST ALT Alkaline Phosphatase Troponin I NT-Pro-B Natriuret Pep Total Protein Albumin Globulin Albumin/Globulin Ratio Triglycerides Cholesterol LDL Cholesterol Direct HDL Cholesterol Urine Color Urine Clarity Urine pH Ur Specific [place] Urine Protein Urine Glucose (UA) Urine Ketones Urine Blood Urine Nitrate Urine Bilirubin Urine Urobilinogen Ur Leukocyte Esterase Urine WBC (Auto) Urine RBC (Auto) Ur Squamous Epith Cells Urine Yeast (Budding) Urine Opiates Screen Negative Urine Methadone Screen Negative Ur Barbiturates Screen Negative Ur Phencyclidine Scrn Negative Ur Amphetamines Screen Negative U Benzodiazepines Scrn Negative U Oth Cocaine Metabols Negative U Cannabinoids Screen Negative Blood Type Antibody Screen 04/10/18 04/10/18 04/10/18 01:23 01:27 05:02 WBC RBC Hgb Hct MCV MCH MCHC RDW Plt Count MPV Neut % (Auto) Lymph % (Auto) [place] % (Auto) Eos % (Auto) Baso % (Auto) Neut # (Auto) Lymph # (Auto) [place] # (Auto) Eos # (Auto) Baso # (Auto) Neutrophils % (Manual) Band Neutrophils % Lymphocytes % (Manual) Monocytes % (Manual) Eosinophils % (Manual) Basophils % (Manual) Platelet Estimate Hypochromasia (manual) Poikilocytosis (manual Anisocytosis (manual) Target Cells PT INR APTT 28 D Puncture Site pCO2 pO2 HCO3 ABG pH ABG Total CO2 ABG O2 Saturation ABG Base Excess ABG Hemoglobin ABG Carboxyhemoglobin POC ABG HHb (Measured) ABG Methemoglobin Caesar Test A-a O2 Difference Respiratory Index Hgb O2 Saturation Vent Mode Mechanical Rate FiO2 Tidal Volume PEEP Sodium Potassium Chloride Carbon Dioxide Anion Gap BUN Creatinine Est GFR ( Amer) Est GFR (Non-Af Amer) POC Glucose (mg/dL) Random Glucose Hemoglobin A1c Lactic Acid 1.6 Calcium Phosphorus Magnesium Total Bilirubin AST ALT Alkaline Phosphatase Troponin I NT-Pro-B Natriuret Pep Total Protein Albumin Globulin Albumin/Globulin Ratio Triglycerides Cholesterol LDL Cholesterol Direct HDL Cholesterol Urine Color Yellow Urine Clarity Hazy Urine pH 7.0 Ur Specific [place] 1.018 Urine Protein Negative Urine Glucose (UA) 1+ Urine Ketones Negative Urine Blood 1+ H Urine Nitrate Negative Urine Bilirubin Negative Urine Urobilinogen Normal Ur Leukocyte Esterase Trace Urine WBC (Auto) 6 H Urine RBC (Auto) 6 H Ur Squamous Epith Cells < 1 Urine Yeast (Budding) Mod H Urine Opiates Screen Urine Methadone Screen Ur Barbiturates Screen Ur Phencyclidine Scrn Ur Amphetamines Screen U Benzodiazepines Scrn U Oth Cocaine Metabols U Cannabinoids Screen Blood Type Antibody Screen 04/10/18 04/10/18 04/10/18 05:13 05:38 06:11 WBC 20.1 H RBC 2.46 L Hgb 9.2 L Hct 28.1 L MCV 94.4 D MCH 37.3 H MCHC 32.7 L RDW 14.5 Plt Count 185 MPV 8.4 Neut % (Auto) 94.8 H Lymph % (Auto) 1.2 L [place] % (Auto) 3.0 Eos % (Auto) 0.0 Baso % (Auto) 1.0 Neut # (Auto) 19.0 H Lymph # (Auto) 0.2 L [place] # (Auto) 0.6 Eos # (Auto) 0.0 Baso # (Auto) 0.2 Neutrophils % (Manual) 90 H Band Neutrophils % 6 H Lymphocytes % (Manual) 2 L Monocytes % (Manual) 2 Eosinophils % (Manual) Basophils % (Manual) Platelet Estimate Normal Hypochromasia (manual) Slight Poikilocytosis (manual Slight Anisocytosis (manual) Slight Target Cells Slight PT INR APTT Puncture Site Rb pCO2 36 pO2 167 H HCO3 26.3 ABG pH 7.46 H ABG Total CO2 26.7 ABG O2 Saturation 99.1 H ABG Base Excess 1.8 ABG Hemoglobin 9.3 L ABG Carboxyhemoglobin 1.3 POC ABG HHb (Measured) 0.9 ABG Methemoglobin 1.0 Caesar Test Na A-a O2 Difference 73.0 Respiratory Index 0.4 Hgb O2 Saturation 96.7 Vent Mode Prvc Mechanical Rate 20 FiO2 40.0 Tidal Volume 450 PEEP 5 Sodium Potassium Chloride Carbon Dioxide Anion Gap BUN Creatinine Est GFR ( Amer) Est GFR (Non-Af Amer) POC Glucose (mg/dL) 153 H Random Glucose Hemoglobin A1c Lactic Acid Calcium Phosphorus Magnesium Total Bilirubin AST ALT Alkaline Phosphatase Troponin I NT-Pro-B Natriuret Pep Total Protein Albumin Globulin Albumin/Globulin Ratio Triglycerides Cholesterol LDL Cholesterol Direct HDL Cholesterol Urine Color Urine Clarity Urine pH Ur Specific [place] Urine Protein Urine Glucose (UA) Urine Ketones Urine Blood Urine Nitrate Urine Bilirubin Urine Urobilinogen Ur Leukocyte Esterase Urine WBC (Auto) Urine RBC (Auto) Ur Squamous Epith Cells Urine Yeast (Budding) Urine Opiates Screen Urine Methadone Screen Ur Barbiturates Screen Ur Phencyclidine Scrn Ur Amphetamines Screen U Benzodiazepines Scrn U Oth Cocaine Metabols U Cannabinoids Screen Blood Type Antibody Screen 04/10/18 04/10/18 06:11 11:35 WBC RBC Hgb Hct MCV MCH MCHC RDW Plt Count MPV Neut % (Auto) Lymph % (Auto) [place] % (Auto) Eos % (Auto) Baso % (Auto) Neut # (Auto) Lymph # (Auto) [place] # (Auto) Eos # (Auto) Baso # (Auto) Neutrophils % (Manual) Band Neutrophils % Lymphocytes % (Manual) Monocytes % (Manual) Eosinophils % (Manual) Basophils % (Manual) Platelet Estimate Hypochromasia (manual) Poikilocytosis (manual Anisocytosis (manual) Target Cells PT INR APTT Puncture Site pCO2 pO2 HCO3 ABG pH ABG Total CO2 ABG O2 Saturation ABG Base Excess ABG Hemoglobin ABG Carboxyhemoglobin POC ABG HHb (Measured) ABG Methemoglobin Caesar Test A-a O2 Difference Respiratory Index Hgb O2 Saturation Vent Mode Mechanical Rate FiO2 Tidal Volume PEEP Sodium 140 Potassium 3.5 L Chloride 108 H Carbon Dioxide 24 Anion Gap 12 BUN 22 H Creatinine 0.7 Est GFR ( Amer) > 60 Est GFR (Non-Af Amer) > 60 POC Glucose (mg/dL) 181 H Random Glucose 153 H D Hemoglobin A1c Lactic Acid Calcium 9.0 Phosphorus 3.5 Magnesium 1.9 Total Bilirubin 0.7 AST 24 ALT 32 Alkaline Phosphatase 87 Troponin I NT-Pro-B Natriuret Pep 6150 H Total Protein 5.6 L Albumin 3.0 L Globulin 2.6 Albumin/Globulin Ratio 1.1 Triglycerides Cholesterol LDL Cholesterol Direct HDL Cholesterol Urine Color Urine Clarity Urine pH Ur Specific [place] Urine Protein Urine Glucose (UA) Urine Ketones Urine Blood Urine Nitrate Urine Bilirubin Urine Urobilinogen Ur Leukocyte Esterase Urine WBC (Auto) Urine RBC (Auto) Ur Squamous Epith Cells Urine Yeast (Budding) Urine Opiates Screen Urine Methadone Screen Ur Barbiturates Screen Ur Phencyclidine Scrn Ur Amphetamines Screen U Benzodiazepines Scrn U Oth Cocaine Metabols U Cannabinoids Screen Blood Type Antibody Screen Radiology Impressions: Radiology Impressions Head/Neck CTA 04/09/18 18:58 IMPRESSION: 1. No evidence of endoluminal thrombus,occlusion or definite significant stenosis in the intracranial arteries. 2. No evidence of hemodynamically significant stenosis in the internal carotid arteries. 3. Patent bilateral vertebral arteries. 4. 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 5. 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 Dedicated thyroid ultrasound is recommended for further evaluation. 6. Multifocal pneumonia versus metastasis in the visualized lungs. A preliminary report was provided by [facility]. Chest X-Ray 04/09/18 18:59 IMPRESSION: Patchy nodular multifocal pneumonia. Endotracheal tube is high in position and terminates in the proximal trachea. Repositioning is recommended. Head CT 04/09/18 18:59 IMPRESSION: 1. No acute intracranial abnormality. If there is a persistent focal neurologic deficit and an ongoing clinical concern for acute infarction, an MRI of the brain without intravenous contrast would be a more sensitive modality for evaluation of hyperacute/acute ischemic infarction. 2. Moderate chronic microangiopathic changes and mild age-related global parenchymal volume loss. 3. Well-circumscribed ovoid osteolytic lesion in the left parietal calvarium nonspecific, the differential considerations include benign and malignant etiologies. Correlation with MRI brain with intravenous contrast and radionuclide bone scan may be helpful for further characterization. A preliminary report was provided by [facility]. Chest CT 04/09/18 20:54 IMPRESSION: There is a large mass which appears to arise from the right lobe of the thyroid gland which exerts surrounding mass effect and results in compression of the trachea as well as the right brachiocephalic artery, subclavian and common carotid arteries.. This lesion is suspicious for a thyroid malignancy. Thyroid biopsy recommended for further evaluation. Destructive changes of the sternum and manubrium.. There are also destructive changes seen involving the C7, T1 and T2 vertebral body segments.. Findings are consistent with metastatic disease note that there appears to be a mottled appearance of many of the remaining thoracic segments which could be due to diffuse osteopenia however early metastatic deposits should be excluded. . There is also a sclerotic lesion seen within the right posterolateral margin of the T2 segment extending into the pedicle. Sclerotic lesion also present in the T2 spinous process. Bilateral multifocal patchy interstitial and nodular opacities most confluent in the upper lobes bilaterally. Air is present within the anterior aspect of the pulmonary trunk and probably within the right subclavian vein likely due to recent intravenous injection. Chest X-Ray 04/10/18 07:00 IMPRESSION: Multifocal pneumonia. Endotracheal tube terminates in the proximal trachea. EKG/Cardiology Studies: Cardiology / EKG Studies 04/09/18 18:59 ELECTROCARDIOGRAM Stat Comment: Mode Of Transportation: BED Reason For Exam: stroke Fingerstick Blood Sugar Results: 181 Assessment/Plan - Assessment and Plan (Free Text) Plan: Patient is 67 year old female pmhx of HTN, CAD s/p stent, recent admission for minor CVA, brought to ED from rehab with difficulty breathing, hot flashes, acute mental status change, LOC and resp arrest, intubated in the field. SBP near 150s in ER, given labetalol, CT head for AMS, nondiagnostic. Patient responding and assessed for possible extuubation. Extubated in the afternoon today, doing well. Chest xray new findings of distal right clavicular fracture. Ortho consult placed for further eval. Neuro AMS on admission Alert and awake after extubation No longer AMS CT head -developing infarct left cerebellar hemisphere, probale old median right frontal infart Neuro recs - Dr Castro Cardio hx of CAD s/p stent, CHF home meds restarted Plavix loading dose, and 75 mg PO daily Norvasc, Lisinopril Statin ASA loading dose and 81 PO daily Resp acute hypoxic respiratory failure d- dimer extubated today place on NC - sat well continue to monitor O2 sat continue bronchodilator and solumedrol Lasix Pulm consult - Dr Colon Heme/Onc Thyroid mass - CT chest - Lytic lesions on neck, suspect metastatic disease - CT head- Calvarial lytic lesion - mets disease - consider onc consult GI NG tube swallow eval dietary consult Endo ISS Q6hrs accuchecks TSH Nephro potassium low repleted this am continue to follow am labs ID PNA on abx -Zosyn , Vanco Ortho acute Fracture distal right clavicle seen on todays chest xray Ortho consult- Dr Paulac - recs are appreciated PPX heparin SQ Pepcid PT/OT Plan discussed with Dr Ciarra Zaragoza - Date & Time Date: 04/10/18 Time: 09:00 <Paulo Lafleur M - Last Filed: 04/10/18 18:34> CCU Objective - Vital Signs / Intake & Output Vital Signs (Last 4 hours): Vital Signs Temp Pulse Resp BP Pulse Ox 04/10/18 18:00 85 22 100 04/10/18 17:41 85 21 150/84 100 04/10/18 16:55 82 15 143/81 100 04/10/18 16:00 97.8 F 18 100 04/10/18 15:41 65 21 135/74 100 04/10/18 14:41 74 26 H 130/79 97 Intake and Output (Last 8hrs): Intake & Output 04/10/18 04/10/18 04/10/18 06:59 14:59 22:59 Intake Total 703.1 252.6 Output Total 625 1120 370 Balance 78.1 -867.4 -370 Weight 88 lb Intake: IV 32 0 Intake, IV Amount 670.1 162.6 Left Antecubital 626 150 Right Antecubital 44.1 12.6 TPN/PPN 1 Other 90 Output: Urine 625 1120 370 Urethral (Walsh) 625 1120 370 - Medications Active Medications: Active Medications Generic Name Dose Route Start Last Admin Trade Name Freq PRN Reason Stop Dose Admin Albuterol/Ipratropium 3 ml 04/10/18 02:00 04/10/18 13:17 Duoneb 3 Mg/0.5 Mg (3 Ml) Ud INH 3 ml RQ6 RODRIGO Administration Amlodipine Besylate 10 mg 04/11/18 10:00 Norvasc PO DAILY [facility] Aspirin 81 mg 04/11/18 10:00 Aspirin Chewable PO DAILY [facility] Clopidogrel Bisulfate 75 mg 04/11/18 10:00 Plavix PO DAILY [facility] Dextrose 0 ml 04/09/18 23:39 Dextrose 50% Inj IV STAT PRN Hypoglycemia Protocol Protocol Dextrose 0 gm 04/09/18 23:39 Glutose 15 PO ONCE PRN Hypoglycemia Protocol Protocol Furosemide 40 mg 04/10/18 10:00 04/10/18 09:48 Lasix IVP 40 mg DAILY RODRIGO Administration Glucagon 0 mg 04/09/18 23:39 Glucagen Diagnostic Kit IM STAT PRN Hypoglycemia Protocol Protocol Heparin Sodium (Porcine) 5,000 units 04/09/18 23:45 04/10/18 16:27 Heparin SC 5,000 units Q8 RODRIGO Administration Piperacillin Sod/Tazobactam 100 mls @ 200 mls/hr 04/09/18 23:45 04/10/18 11:34 Sod 3.375 gm/ Sodium Chloride IVPB 200 mls/hr Q6H RODRIGO Administration Protocol Vancomycin HCl 1 gm/ Sodium 250 mls @ 166.7 mls/hr 04/09/18 23:45 04/10/18 01:55 Chloride IVPB 166.7 mls/hr Q24H RODRIGO Administration Protocol Dextrose 1,000 mls @ 0 mls/hr 04/09/18 23:39 Dextrose 5% In Water 1000 Ml IV .Q0M PRN Hypoglycemia Protocol Protocol Per Protocol Insulin Aspart 0 unit 04/09/18 23:45 04/10/18 18:12 Novolog SC Not Given Q6H [facility] Protocol Lisinopril 40 mg 04/11/18 10:00 Zestril PO DAILY [facility] Methylprednisolone 40 mg 04/10/18 10:31 04/10/18 10:52 Solu-Medrol IVP Not Given Q12H [facility] Pantoprazole Sodium 40 mg 04/10/18 10:00 04/10/18 11:00 Protonix Inj IVP 40 mg DAILY [facility] Administration Potassium Chloride 20 meq 04/11/18 10:00 K-Dur 20 Meq Er Tab PO DAILY [facility] Rosuvastatin Calcium 5 mg 04/10/18 22:00 Crestor PO HS [facility] Vitamin A 0.5 ea 04/10/18 14:21 04/10/18 16:28 Vitamin A & D Oint Ud Foilpak TOP 0.5 ea Q4 PRN Administration Dry mouth - Patient Studies Lab Studies: Microbiology Studies 04/10/18 00:59 Gram Stain - Final Trachasp Lab Studies 04/10/18 04/10/18 04/10/18 Range/Units 16:15 11:35 06:11 WBC (4.8-10.8) K/uL RBC (3.80-5.20) Mil/uL Hgb (11.0-16.0) g/dL Hct (34.0-47.0) % MCV (81.0-99.0) fL MCH (27.0-31.0) pg MCHC (33.0-37.0) g/dL RDW (11.5-14.5) % Plt Count (130-400) K/uL MPV (7.2-11.7) fL Neut % (Auto) (50.0-75.0) % Lymph % (Auto) (20.0-40.0) % [place] % (Auto) (0.0-10.0) % Eos % (Auto) (0.0-4.0) % Baso % (Auto) (0.0-2.0) % Neut # (Auto) (1.8-7.0) K/uL Lymph # (Auto) (1.0-4.3) K/uL [place] # (Auto) (0.0-0.8) K/uL Eos # (Auto) (0.0-0.7) K/uL Baso # (Auto) (0.0-0.2) K/uL Neutrophils % (Manual) (50-75) % Band Neutrophils % (0-2) % Lymphocytes % (Manual) (20-40) % Monocytes % (Manual) (0-10) % Eosinophils % (Manual) (0-4) % Basophils % (Manual) (0-2) % Platelet Estimate (NORMAL) Hypochromasia (manual) Poikilocytosis (manual Anisocytosis (manual) Target Cells PT (9.7-12.2) SECONDS INR APTT (21-34) SECONDS Puncture Site pCO2 (35-45) mm/Hg pO2 (80-100) mm/Hg HCO3 (21-28) mmol/L ABG pH (7.35-7.45) ABG Total CO2 (22-28) mmol/L ABG O2 Saturation (95-98) % ABG Base Excess (-2.0-3.0) mmol/L ABG Hemoglobin (11.7-17.4) g/dL ABG Carboxyhemoglobin (0.5-1.5) % POC ABG HHb (Measured) (0.0-5.0) % ABG Methemoglobin (0.0-3.0) % Caesar Test A-a O2 Difference mm/Hg Respiratory Index Hgb O2 Saturation (95.0-98.0) % Vent Mode Mechanical Rate FiO2 % Tidal Volume PEEP Sodium 140 (132-148) mmol/L Potassium 3.5 L (3.6-5.2) mmol/L Chloride 108 H (98-107) mmol/L Carbon Dioxide 24 (22-30) mmol/L Anion Gap 12 (10-20) BUN 22 H (7-17) mg/dL Creatinine 0.7 (0.7-1.2) mg/dL Est GFR ( Amer) > 60 Est GFR (Non-Af Amer) > 60 POC Glucose (mg/dL) 169 H 181 H (65-110) mg/dL Random Glucose 153 H D (65-105) mg/dL Hemoglobin A1c (4.2-6.5) % Lactic Acid (0.7-2.1) mmol/L Calcium 9.0 (8.6-10.4) mg/dl Phosphorus 3.5 (2.5-4.5) mg/dL Magnesium 1.9 (1.6-2.3) mg/dL Total Bilirubin 0.7 (0.2-1.3) mg/dL AST 24 (14-36) U/L ALT 32 (9-52) U/L Alkaline Phosphatase 87 (38-126) U/L Troponin I (0.00-0.120) ng/mL NT-Pro-B Natriuret Pep 6150 H (0-900) pg/mL Total Protein 5.6 L (6.3-8.3) g/dL Albumin 3.0 L (3.5-5.0) g/dL Globulin 2.6 (2.2-3.9) gm/dL Albumin/Globulin Ratio 1.1 (1.0-2.1) Triglycerides (0-149) mg/dL Cholesterol (0-199) mg/dL LDL Cholesterol Direct (0-129) mg/dL HDL Cholesterol (30-70) mg/dL Urine Color (YELLOW) Urine Clarity (Clear) Urine pH (5.0-8.0) Ur Specific [place] (1.003-1.030) Urine Protein (NEGATIVE) mg/dL Urine Glucose (UA) (Normal) mg/dL Urine Ketones (NEGATIVE) mg/dL Urine Blood (NEGATIVE) Urine Nitrate (NEGATIVE) Urine Bilirubin (NEGATIVE) Urine Urobilinogen (0.2-1.0) mg/dL Ur Leukocyte Esterase (Negative) [place]aley/uL Urine WBC (Auto) (0-5) /hpf Urine RBC (Auto) (0-3) /hpf Ur Squamous Epith Cells (0-5) /hpf Urine Yeast (Budding) (NEGATIVE) /hpf Urine Opiates Screen (NEGATIVE) Urine Methadone Screen (NEGATIVE) Ur Barbiturates Screen (NEGATIVE) Ur Phencyclidine Scrn (NEGATIVE) Ur Amphetamines Screen (NEGATIVE) U Benzodiazepines Scrn (NEGATIVE) U Oth Cocaine Metabols (NEGATIVE) U Cannabinoids Screen (NEGATIVE) Blood Type Antibody Screen 04/10/18 04/10/18 04/10/18 Range/Units 06:11 05:38 05:13 WBC 20.1 H (4.8-10.8) K/uL RBC 2.46 L (3.80-5.20) Mil/uL Hgb 9.2 L (11.0-16.0) g/dL Hct 28.1 L (34.0-47.0) % MCV 94.4 D (81.0-99.0) fL MCH 37.3 H (27.0-31.0) pg MCHC 32.7 L (33.0-37.0) g/dL RDW 14.5 (11.5-14.5) % Plt Count 185 (130-400) K/uL MPV 8.4 (7.2-11.7) fL Neut % (Auto) 94.8 H (50.0-75.0) % Lymph % (Auto) 1.2 L (20.0-40.0) % [place] % (Auto) 3.0 (0.0-10.0) % Eos % (Auto) 0.0 (0.0-4.0) % Baso % (Auto) 1.0 (0.0-2.0) % Neut # (Auto) 19.0 H (1.8-7.0) K/uL Lymph # (Auto) 0.2 L (1.0-4.3) K/uL [place] # (Auto) 0.6 (0.0-0.8) K/uL Eos # (Auto) 0.0 (0.0-0.7) K/uL Baso # (Auto) 0.2 (0.0-0.2) K/uL Neutrophils % (Manual) 90 H (50-75) % Band Neutrophils % 6 H (0-2) % Lymphocytes % (Manual) 2 L (20-40) % Monocytes % (Manual) 2 (0-10) % Eosinophils % (Manual) (0-4) % Basophils % (Manual) (0-2) % Platelet Estimate Normal (NORMAL) Hypochromasia (manual) Slight Poikilocytosis (manual Slight Anisocytosis (manual) Slight Target Cells Slight PT (9.7-12.2) SECONDS INR APTT (21-34) SECONDS Puncture Site Rb pCO2 36 (35-45) mm/Hg pO2 167 H (80-100) mm/Hg HCO3 26.3 (21-28) mmol/L ABG pH 7.46 H (7.35-7.45) ABG Total CO2 26.7 (22-28) mmol/L ABG O2 Saturation 99.1 H (95-98) % ABG Base Excess 1.8 (-2.0-3.0) mmol/L ABG Hemoglobin 9.3 L (11.7-17.4) g/dL ABG Carboxyhemoglobin 1.3 (0.5-1.5) % POC ABG HHb (Measured) 0.9 (0.0-5.0) % ABG Methemoglobin 1.0 (0.0-3.0) % Caesar Test Na A-a O2 Difference 73.0 mm/Hg Respiratory Index 0.4 Hgb O2 Saturation 96.7 (95.0-98.0) % Vent Mode Prvc Mechanical Rate 20 FiO2 40.0 % Tidal Volume 450 PEEP 5 Sodium (132-148) mmol/L Potassium (3.6-5.2) mmol/L Chloride (98-107) mmol/L Carbon Dioxide (22-30) mmol/L Anion Gap (10-20) BUN (7-17) mg/dL Creatinine (0.7-1.2) mg/dL Est GFR ( Amer) Est GFR (Non-Af Amer) POC Glucose (mg/dL) 153 H (65-110) mg/dL Random Glucose (65-105) mg/dL Hemoglobin A1c (4.2-6.5) % Lactic Acid (0.7-2.1) mmol/L Calcium (8.6-10.4) mg/dl Phosphorus (2.5-4.5) mg/dL Magnesium (1.6-2.3) mg/dL Total Bilirubin (0.2-1.3) mg/dL AST (14-36) U/L ALT (9-52) U/L Alkaline Phosphatase (38-126) U/L Troponin I (0.00-0.120) ng/mL NT-Pro-B Natriuret Pep (0-900) pg/mL Total Protein (6.3-8.3) g/dL Albumin (3.5-5.0) g/dL Globulin (2.2-3.9) gm/dL Albumin/Globulin Ratio (1.0-2.1) Triglycerides (0-149) mg/dL Cholesterol (0-199) mg/dL LDL Cholesterol Direct (0-129) mg/dL HDL Cholesterol (30-70) mg/dL Urine Color (YELLOW) Urine Clarity (Clear) Urine pH (5.0-8.0) Ur Specific [place] (1.003-1.030) Urine Protein (NEGATIVE) mg/dL Urine Glucose (UA) (Normal) mg/dL Urine Ketones (NEGATIVE) mg/dL Urine Blood (NEGATIVE) Urine Nitrate (NEGATIVE) Urine Bilirubin (NEGATIVE) Urine Urobilinogen (0.2-1.0) mg/dL Ur Leukocyte Esterase (Negative) Haley/uL Urine WBC (Auto) (0-5) /hpf Urine RBC (Auto) (0-3) /hpf Ur Squamous Epith Cells (0-5) /hpf Urine Yeast (Budding) (NEGATIVE) /hpf Urine Opiates Screen (NEGATIVE) Urine Methadone Screen (NEGATIVE) Ur Barbiturates Screen (NEGATIVE) Ur Phencyclidine Scrn (NEGATIVE) Ur Amphetamines Screen (NEGATIVE) U Benzodiazepines Scrn (NEGATIVE) U Oth Cocaine Metabols (NEGATIVE) U Cannabinoids Screen (NEGATIVE) Blood Type Antibody Screen 04/10/18 04/10/18 04/10/18 Range/Units 05:02 01:27 01:23 WBC (4.8-10.8) K/uL RBC (3.80-5.20) Mil/uL Hgb (11.0-16.0) g/dL Hct (34.0-47.0) % MCV (81.0-99.0) fL MCH (27.0-31.0) pg MCHC (33.0-37.0) g/dL RDW (11.5-14.5) % Plt Count (130-400) K/uL MPV (7.2-11.7) fL Neut % (Auto) (50.0-75.0) % Lymph % (Auto) (20.0-40.0) % [place] % (Auto) (0.0-10.0) % Eos % (Auto) (0.0-4.0) % Baso % (Auto) (0.0-2.0) % Neut # (Auto) (1.8-7.0) K/uL Lymph # (Auto) (1.0-4.3) K/uL [place] # (Auto) (0.0-0.8) K/uL Eos # (Auto) (0.0-0.7) K/uL Baso # (Auto) (0.0-0.2) K/uL Neutrophils % (Manual) (50-75) % Band Neutrophils % (0-2) % Lymphocytes % (Manual) (20-40) % Monocytes % (Manual) (0-10) % Eosinophils % (Manual) (0-4) % Basophils % (Manual) (0-2) % Platelet Estimate (NORMAL) Hypochromasia (manual) Poikilocytosis (manual Anisocytosis (manual) Target Cells PT (9.7-12.2) SECONDS INR APTT 28 D (21-34) SECONDS Puncture Site pCO2 (35-45) mm/Hg pO2 (80-100) mm/Hg HCO3 (21-28) mmol/L ABG pH (7.35-7.45) ABG Total CO2 (22-28) mmol/L ABG O2 Saturation (95-98) % ABG Base Excess (-2.0-3.0) mmol/L ABG Hemoglobin (11.7-17.4) g/dL ABG Carboxyhemoglobin (0.5-1.5) % POC ABG HHb (Measured) (0.0-5.0) % ABG Methemoglobin (0.0-3.0) % Caesar Test A-a O2 Difference mm/Hg Respiratory Index Hgb O2 Saturation (95.0-98.0) % Vent Mode Mechanical Rate FiO2 % Tidal Volume PEEP Sodium (132-148) mmol/L Potassium (3.6-5.2) mmol/L Chloride (98-107) mmol/L Carbon Dioxide (22-30) mmol/L Anion Gap (10-20) BUN (7-17) mg/dL Creatinine (0.7-1.2) mg/dL Est GFR ( Amer) Est GFR (Non-Af Amer) POC Glucose (mg/dL) (65-110) mg/dL Random Glucose (65-105) mg/dL Hemoglobin A1c (4.2-6.5) % Lactic Acid 1.6 (0.7-2.1) mmol/L Calcium (8.6-10.4) mg/dl Phosphorus (2.5-4.5) mg/dL Magnesium (1.6-2.3) mg/dL Total Bilirubin (0.2-1.3) mg/dL AST (14-36) U/L ALT (9-52) U/L Alkaline Phosphatase (38-126) U/L Troponin I (0.00-0.120) ng/mL NT-Pro-B Natriuret Pep (0-900) pg/mL Total Protein (6.3-8.3) g/dL Albumin (3.5-5.0) g/dL Globulin (2.2-3.9) gm/dL Albumin/Globulin Ratio (1.0-2.1) Triglycerides (0-149) mg/dL Cholesterol (0-199) mg/dL LDL Cholesterol Direct (0-129) mg/dL HDL Cholesterol (30-70) mg/dL Urine Color Yellow (YELLOW) Urine Clarity Hazy (Clear) Urine pH 7.0 (5.0-8.0) Ur Specific [place] 1.018 (1.003-1.030) Urine Protein Negative (NEGATIVE) mg/dL Urine Glucose (UA) 1+ (Normal) mg/dL Urine Ketones Negative (NEGATIVE) mg/dL Urine Blood 1+ H (NEGATIVE) Urine Nitrate Negative (NEGATIVE) Urine Bilirubin Negative (NEGATIVE) Urine Urobilinogen Normal (0.2-1.0) mg/dL Ur Leukocyte Esterase Trace (Negative) Haley/uL Urine WBC (Auto) 6 H (0-5) /hpf Urine RBC (Auto) 6 H (0-3) /hpf Ur Squamous Epith Cells < 1 (0-5) /hpf Urine Yeast (Budding) Mod H (NEGATIVE) /hpf Urine Opiates Screen (NEGATIVE) Urine Methadone Screen (NEGATIVE) Ur Barbiturates Screen (NEGATIVE) Ur Phencyclidine Scrn (NEGATIVE) Ur Amphetamines Screen (NEGATIVE) U Benzodiazepines Scrn (NEGATIVE) U Oth Cocaine Metabols (NEGATIVE) U Cannabinoids Screen (NEGATIVE) Blood Type Antibody Screen 04/10/18 04/09/18 04/09/18 Range/Units 01:06 20:02 19:45 WBC (4.8-10.8) K/uL RBC (3.80-5.20) Mil/uL Hgb (11.0-16.0) g/dL Hct (34.0-47.0) % MCV (81.0-99.0) fL MCH (27.0-31.0) pg MCHC (33.0-37.0) g/dL RDW (11.5-14.5) % Plt Count (130-400) K/uL MPV (7.2-11.7) fL Neut % (Auto) (50.0-75.0) % Lymph % (Auto) (20.0-40.0) % [place] % (Auto) (0.0-10.0) % Eos % (Auto) (0.0-4.0) % Baso % (Auto) (0.0-2.0) % Neut # (Auto) (1.8-7.0) K/uL Lymph # (Auto) (1.0-4.3) K/uL [place] # (Auto) (0.0-0.8) K/uL Eos # (Auto) (0.0-0.7) K/uL Baso # (Auto) (0.0-0.2) K/uL Neutrophils % (Manual) (50-75) % Band Neutrophils % (0-2) % Lymphocytes % (Manual) (20-40) % Monocytes % (Manual) (0-10) % Eosinophils % (Manual) (0-4) % Basophils % (Manual) (0-2) % Platelet Estimate (NORMAL) Hypochromasia (manual) Poikilocytosis (manual Anisocytosis (manual) Target Cells PT (9.7-12.2) SECONDS INR APTT (21-34) SECONDS Puncture Site Rba pCO2 58 H (35-45) mm/Hg pO2 319 H (80-100) mm/Hg HCO3 24.3 (21-28) mmol/L ABG pH 7.27 L (7.35-7.45) ABG Total CO2 28.4 H (22-28) mmol/L ABG O2 Saturation 99.8 H (95-98) % ABG Base Excess -0.8 (-2.0-3.0) mmol/L ABG Hemoglobin 9.3 L (11.7-17.4) g/dL ABG Carboxyhemoglobin 2.1 H (0.5-1.5) % POC ABG HHb (Measured) 0.2 (0.0-5.0) % ABG Methemoglobin 1.6 (0.0-3.0) % Caesar Test Pos A-a O2 Difference 250.0 mm/Hg Respiratory Index 0.8 Hgb O2 Saturation 96.1 (95.0-98.0) % Vent Mode Prvc Mechanical Rate 16 FiO2 90.0 % Tidal Volume 450 PEEP 5 Sodium (132-148) mmol/L Potassium (3.6-5.2) mmol/L Chloride (98-107) mmol/L Carbon Dioxide (22-30) mmol/L Anion Gap (10-20) BUN (7-17) mg/dL Creatinine (0.7-1.2) mg/dL Est GFR ( Amer) Est GFR (Non-Af Amer) POC Glucose (mg/dL) 170 H (65-110) mg/dL Random Glucose (65-105) mg/dL Hemoglobin A1c (4.2-6.5) % Lactic Acid (0.7-2.1) mmol/L Calcium (8.6-10.4) mg/dl Phosphorus (2.5-4.5) mg/dL Magnesium (1.6-2.3) mg/dL Total Bilirubin (0.2-1.3) mg/dL AST (14-36) U/L ALT (9-52) U/L Alkaline Phosphatase (38-126) U/L Troponin I (0.00-0.120) ng/mL NT-Pro-B Natriuret Pep (0-900) pg/mL Total Protein (6.3-8.3) g/dL Albumin (3.5-5.0) g/dL Globulin (2.2-3.9) gm/dL Albumin/Globulin Ratio (1.0-2.1) Triglycerides (0-149) mg/dL Cholesterol (0-199) mg/dL LDL Cholesterol Direct (0-129) mg/dL HDL Cholesterol (30-70) mg/dL Urine Color (YELLOW) Urine Clarity (Clear) Urine pH (5.0-8.0) Ur Specific [place] (1.003-1.030) Urine Protein (NEGATIVE) mg/dL Urine Glucose (UA) (Normal) mg/dL Urine Ketones (NEGATIVE) mg/dL Urine Blood (NEGATIVE) Urine Nitrate (NEGATIVE) Urine Bilirubin (NEGATIVE) Urine Urobilinogen (0.2-1.0) mg/dL Ur Leukocyte Esterase (Negative) Haley/uL Urine WBC (Auto) (0-5) /hpf Urine RBC (Auto) (0-3) /hpf Ur Squamous Epith Cells (0-5) /hpf Urine Yeast (Budding) (NEGATIVE) /hpf Urine Opiates Screen Negative (NEGATIVE) Urine Methadone Screen Negative (NEGATIVE) Ur Barbiturates Screen Negative (NEGATIVE) Ur Phencyclidine Scrn Negative (NEGATIVE) Ur Amphetamines Screen Negative (NEGATIVE) U Benzodiazepines Scrn Negative (NEGATIVE) U Oth Cocaine Metabols Negative (NEGATIVE) U Cannabinoids Screen Negative (NEGATIVE) Blood Type Antibody Screen 04/09/18 04/09/18 04/09/18 Range/Units 19:06 19:06 19:06 WBC (4.8-10.8) K/uL RBC (3.80-5.20) Mil/uL Hgb (11.0-16.0) g/dL Hct (34.0-47.0) % MCV (81.0-99.0) fL MCH (27.0-31.0) pg MCHC (33.0-37.0) g/dL RDW (11.5-14.5) % Plt Count (130-400) K/uL MPV (7.2-11.7) fL Neut % (Auto) (50.0-75.0) % Lymph % (Auto) (20.0-40.0) % [place] % (Auto) (0.0-10.0) % Eos % (Auto) (0.0-4.0) % Baso % (Auto) (0.0-2.0) % Neut # (Auto) (1.8-7.0) K/uL Lymph # (Auto) (1.0-4.3) K/uL [place] # (Auto) (0.0-0.8) K/uL Eos # (Auto) (0.0-0.7) K/uL Baso # (Auto) (0.0-0.2) K/uL Neutrophils % (Manual) (50-75) % Band Neutrophils % (0-2) % Lymphocytes % (Manual) (20-40) % Monocytes % (Manual) (0-10) % Eosinophils % (Manual) (0-4) % Basophils % (Manual) (0-2) % Platelet Estimate (NORMAL) Hypochromasia (manual) Poikilocytosis (manual Anisocytosis (manual) Target Cells PT (9.7-12.2) SECONDS INR APTT (21-34) SECONDS Puncture Site pCO2 (35-45) mm/Hg pO2 (80-100) mm/Hg HCO3 (21-28) mmol/L ABG pH (7.35-7.45) ABG Total CO2 (22-28) mmol/L ABG O2 Saturation (95-98) % ABG Base Excess (-2.0-3.0) mmol/L ABG Hemoglobin (11.7-17.4) g/dL ABG Carboxyhemoglobin (0.5-1.5) % POC ABG HHb (Measured) (0.0-5.0) % ABG Methemoglobin (0.0-3.0) % Caesar Test A-a O2 Difference mm/Hg Respiratory Index Hgb O2 Saturation (95.0-98.0) % Vent Mode Mechanical Rate FiO2 % Tidal Volume PEEP Sodium 140 (132-148) mmol/L Potassium 3.5 L (3.6-5.2) mmol/L Chloride 108 H (98-107) mmol/L Carbon Dioxide 24 (22-30) mmol/L Anion Gap 12 (10-20) BUN 24 H (7-17) mg/dL Creatinine 0.9 (0.7-1.2) mg/dL Est GFR ( Amer) > 60 Est GFR (Non-Af Amer) > 60 POC Glucose (mg/dL) (65-110) mg/dL Random Glucose 222 H D (65-105) mg/dL Hemoglobin A1c 5.4 (4.2-6.5) % Lactic Acid (0.7-2.1) mmol/L Calcium 8.3 L (8.6-10.4) mg/dl Phosphorus (2.5-4.5) mg/dL Magnesium (1.6-2.3) mg/dL Total Bilirubin 0.3 (0.2-1.3) mg/dL AST 38 H (14-36) U/L ALT 31 (9-52) U/L Alkaline Phosphatase 75 (38-126) U/L Troponin I 0.0880 (0.00-0.120) ng/mL NT-Pro-B Natriuret Pep (0-900) pg/mL Total Protein 5.4 L (6.3-8.3) g/dL Albumin 2.8 L D (3.5-5.0) g/dL Globulin 2.6 (2.2-3.9) gm/dL Albumin/Globulin Ratio 1.1 (1.0-2.1) Triglycerides 75 (0-149) mg/dL Cholesterol 164 (0-199) mg/dL LDL Cholesterol Direct 86 (0-129) mg/dL HDL Cholesterol 63 (30-70) mg/dL Urine Color (YELLOW) Urine Clarity (Clear) Urine pH (5.0-8.0) Ur Specific [place] (1.003-1.030) Urine Protein (NEGATIVE) mg/dL Urine Glucose (UA) (Normal) mg/dL Urine Ketones (NEGATIVE) mg/dL Urine Blood (NEGATIVE) Urine Nitrate (NEGATIVE) Urine Bilirubin (NEGATIVE) Urine Urobilinogen (0.2-1.0) mg/dL Ur Leukocyte Esterase (Negative) Haley/uL Urine WBC (Auto) (0-5) /hpf Urine RBC (Auto) (0-3) /hpf Ur Squamous Epith Cells (0-5) /hpf Urine Yeast (Budding) (NEGATIVE) /hpf Urine Opiates Screen (NEGATIVE) Urine Methadone Screen (NEGATIVE) Ur Barbiturates Screen (NEGATIVE) Ur Phencyclidine Scrn (NEGATIVE) Ur Amphetamines Screen (NEGATIVE) U Benzodiazepines Scrn (NEGATIVE) U Oth Cocaine Metabols (NEGATIVE) U Cannabinoids Screen (NEGATIVE) Blood Type O POSITIVE Antibody Screen Negative 04/09/18 04/09/18 04/09/18 Range/Units 19:06 19:06 18:58 WBC 16.9 H (4.8-10.8) K/uL RBC 3.11 L (3.80-5.20) Mil/uL Hgb 9.7 L (11.0-16.0) g/dL Hct 30.3 L (34.0-47.0) % MCV 97.3 D (81.0-99.0) fL MCH 31.3 H (27.0-31.0) pg MCHC 32.1 L (33.0-37.0) g/dL RDW 14.1 (11.5-14.5) % Plt Count 260 D (130-400) K/uL MPV 7.9 (7.2-11.7) fL Neut % (Auto) 84.2 H (50.0-75.0) % Lymph % (Auto) 5.8 L (20.0-40.0) % [place] % (Auto) 5.0 (0.0-10.0) % Eos % (Auto) 4.4 H (0.0-4.0) % Baso % (Auto) 0.6 (0.0-2.0) % Neut # (Auto) 14.2 H (1.8-7.0) K/uL Lymph # (Auto) 1.0 (1.0-4.3) K/uL [place] # (Auto) 0.8 (0.0-0.8) K/uL Eos # (Auto) 0.7 (0.0-0.7) K/uL Baso # (Auto) 0.1 (0.0-0.2) K/uL Neutrophils % (Manual) 76 H (50-75) % Band Neutrophils % 6 H (0-2) % Lymphocytes % (Manual) 11 L (20-40) % Monocytes % (Manual) 2 (0-10) % Eosinophils % (Manual) 4 (0-4) % Basophils % (Manual) 1 (0-2) % Platelet Estimate Normal (NORMAL) Hypochromasia (manual) Poikilocytosis (manual Anisocytosis (manual) Target Cells PT 12.2 (9.7-12.2) SECONDS INR 1.1 APTT 36 H (21-34) SECONDS Puncture Site pCO2 (35-45) mm/Hg pO2 (80-100) mm/Hg HCO3 (21-28) mmol/L ABG pH (7.35-7.45) ABG Total CO2 (22-28) mmol/L ABG O2 Saturation (95-98) % ABG Base Excess (-2.0-3.0) mmol/L ABG Hemoglobin (11.7-17.4) g/dL ABG Carboxyhemoglobin (0.5-1.5) % POC ABG HHb (Measured) (0.0-5.0) % ABG Methemoglobin (0.0-3.0) % Caesar Test A-a O2 Difference mm/Hg Respiratory Index Hgb O2 Saturation (95.0-98.0) % Vent Mode Mechanical Rate FiO2 % Tidal Volume PEEP Sodium (132-148) mmol/L Potassium (3.6-5.2) mmol/L Chloride (98-107) mmol/L Carbon Dioxide (22-30) mmol/L Anion Gap (10-20) BUN (7-17) mg/dL Creatinine (0.7-1.2) mg/dL Est GFR ( Amer) Est GFR (Non-Af Amer) POC Glucose (mg/dL) 242 H (65-110) mg/dL Random Glucose (65-105) mg/dL Hemoglobin A1c (4.2-6.5) % Lactic Acid (0.7-2.1) mmol/L Calcium (8.6-10.4) mg/dl Phosphorus (2.5-4.5) mg/dL Magnesium (1.6-2.3) mg/dL Total Bilirubin (0.2-1.3) mg/dL AST (14-36) U/L ALT (9-52) U/L Alkaline Phosphatase (38-126) U/L Troponin I (0.00-0.120) ng/mL NT-Pro-B Natriuret Pep (0-900) pg/mL Total Protein (6.3-8.3) g/dL Albumin (3.5-5.0) g/dL Globulin (2.2-3.9) gm/dL Albumin/Globulin Ratio (1.0-2.1) Triglycerides (0-149) mg/dL Cholesterol (0-199) mg/dL LDL Cholesterol Direct (0-129) mg/dL HDL Cholesterol (30-70) mg/dL Urine Color (YELLOW) Urine Clarity (Clear) Urine pH (5.0-8.0) Ur Specific [place] (1.003-1.030) Urine Protein (NEGATIVE) mg/dL Urine Glucose (UA) (Normal) mg/dL Urine Ketones (NEGATIVE) mg/dL Urine Blood (NEGATIVE) Urine Nitrate (NEGATIVE) Urine Bilirubin (NEGATIVE) Urine Urobilinogen (0.2-1.0) mg/dL Ur Leukocyte Esterase (Negative) Haley/uL Urine WBC (Auto) (0-5) /hpf Urine RBC (Auto) (0-3) /hpf Ur Squamous Epith Cells (0-5) /hpf Urine Yeast (Budding) (NEGATIVE) /hpf Urine Opiates Screen (NEGATIVE) Urine Methadone Screen (NEGATIVE) Ur Barbiturates Screen (NEGATIVE) Ur Phencyclidine Scrn (NEGATIVE) Ur Amphetamines Screen (NEGATIVE) U Benzodiazepines Scrn (NEGATIVE) U Oth Cocaine Metabols (NEGATIVE) U Cannabinoids Screen (NEGATIVE) Blood Type Antibody Screen Laboratory Results - last 24 hr 04/09/18 04/09/18 04/09/18 18:58 19:06 19:06 WBC 16.9 H RBC 3.11 L Hgb 9.7 L Hct 30.3 L MCV 97.3 D MCH 31.3 H MCHC 32.1 L RDW 14.1 Plt Count 260 D MPV 7.9 Neut % (Auto) 84.2 H Lymph % (Auto) 5.8 L [place] % (Auto) 5.0 Eos % (Auto) 4.4 H Baso % (Auto) 0.6 Neut # (Auto) 14.2 H Lymph # (Auto) 1.0 [place] # (Auto) 0.8 Eos # (Auto) 0.7 Baso # (Auto) 0.1 Neutrophils % (Manual) 76 H Band Neutrophils % 6 H Lymphocytes % (Manual) 11 L Monocytes % (Manual) 2 Eosinophils % (Manual) 4 Basophils % (Manual) 1 Platelet Estimate Normal Hypochromasia (manual) Poikilocytosis (manual Anisocytosis (manual) Target Cells PT 12.2 INR 1.1 APTT 36 H Puncture Site pCO2 pO2 HCO3 ABG pH ABG Total CO2 ABG O2 Saturation ABG Base Excess ABG Hemoglobin ABG Carboxyhemoglobin POC ABG HHb (Measured) ABG Methemoglobin Caesar Test A-a O2 Difference Respiratory Index Hgb O2 Saturation Vent Mode Mechanical Rate FiO2 Tidal Volume PEEP Sodium Potassium Chloride Carbon Dioxide Anion Gap BUN Creatinine Est GFR ( Amer) Est GFR (Non-Af Amer) POC Glucose (mg/dL) 242 H Random Glucose Hemoglobin A1c Lactic Acid Calcium Phosphorus Magnesium Total Bilirubin AST ALT Alkaline Phosphatase Troponin I NT-Pro-B Natriuret Pep Total Protein Albumin Globulin Albumin/Globulin Ratio Triglycerides Cholesterol LDL Cholesterol Direct HDL Cholesterol Urine Color Urine Clarity Urine pH Ur Specific [place] Urine Protein Urine Glucose (UA) Urine Ketones Urine Blood Urine Nitrate Urine Bilirubin Urine Urobilinogen Ur Leukocyte Esterase Urine WBC (Auto) Urine RBC (Auto) Ur Squamous Epith Cells Urine Yeast (Budding) Urine Opiates Screen Urine Methadone Screen Ur Barbiturates Screen Ur Phencyclidine Scrn Ur Amphetamines Screen U Benzodiazepines Scrn U Oth Cocaine Metabols U Cannabinoids Screen Blood Type Antibody Screen 04/09/18 04/09/18 04/09/18 19:06 19:06 19:06 WBC RBC Hgb Hct MCV MCH MCHC RDW Plt Count MPV Neut % (Auto) Lymph % (Auto) [place] % (Auto) Eos % (Auto) Baso % (Auto) Neut # (Auto) Lymph # (Auto) [place] # (Auto) Eos # (Auto) Baso # (Auto) Neutrophils % (Manual) Band Neutrophils % Lymphocytes % (Manual) Monocytes % (Manual) Eosinophils % (Manual) Basophils % (Manual) Platelet Estimate Hypochromasia (manual) Poikilocytosis (manual Anisocytosis (manual) Target Cells PT INR APTT Puncture Site pCO2 pO2 HCO3 ABG pH ABG Total CO2 ABG O2 Saturation ABG Base Excess ABG Hemoglobin ABG Carboxyhemoglobin POC ABG HHb (Measured) ABG Methemoglobin Caesar Test A-a O2 Difference Respiratory Index Hgb O2 Saturation Vent Mode Mechanical Rate FiO2 Tidal Volume PEEP Sodium 140 Potassium 3.5 L Chloride 108 H Carbon Dioxide 24 Anion Gap 12 BUN 24 H Creatinine 0.9 Est GFR ( Amer) > 60 Est GFR (Non-Af Amer) > 60 POC Glucose (mg/dL) Random Glucose 222 H D Hemoglobin A1c 5.4 Lactic Acid Calcium 8.3 L Phosphorus Magnesium Total Bilirubin 0.3 AST 38 H ALT 31 Alkaline Phosphatase 75 Troponin I 0.0880 NT-Pro-B Natriuret Pep Total Protein 5.4 L Albumin 2.8 L D Globulin 2.6 Albumin/Globulin Ratio 1.1 Triglycerides 75 Cholesterol 164 LDL Cholesterol Direct 86 HDL Cholesterol 63 Urine Color Urine Clarity Urine pH Ur Specific [place] Urine Protein Urine Glucose (UA) Urine Ketones Urine Blood Urine Nitrate Urine Bilirubin Urine Urobilinogen Ur Leukocyte Esterase Urine WBC (Auto) Urine RBC (Auto) Ur Squamous Epith Cells Urine Yeast (Budding) Urine Opiates Screen Urine Methadone Screen Ur Barbiturates Screen Ur Phencyclidine Scrn Ur Amphetamines Screen U Benzodiazepines Scrn U Oth Cocaine Metabols U Cannabinoids Screen Blood Type O POSITIVE Antibody Screen Negative 04/09/18 04/09/18 04/10/18 19:45 20:02 01:06 WBC RBC Hgb Hct MCV MCH MCHC RDW Plt Count MPV Neut % (Auto) Lymph % (Auto) [place] % (Auto) Eos % (Auto) Baso % (Auto) Neut # (Auto) Lymph # (Auto) [place] # (Auto) Eos # (Auto) Baso # (Auto) Neutrophils % (Manual) Band Neutrophils % Lymphocytes % (Manual) Monocytes % (Manual) Eosinophils % (Manual) Basophils % (Manual) Platelet Estimate Hypochromasia (manual) Poikilocytosis (manual Anisocytosis (manual) Target Cells PT INR APTT Puncture Site Rba pCO2 58 H pO2 319 H HCO3 24.3 ABG pH 7.27 L ABG Total CO2 28.4 H ABG O2 Saturation 99.8 H ABG Base Excess -0.8 ABG Hemoglobin 9.3 L ABG Carboxyhemoglobin 2.1 H POC ABG HHb (Measured) 0.2 ABG Methemoglobin 1.6 Caesar Test Pos A-a O2 Difference 250.0 Respiratory Index 0.8 Hgb O2 Saturation 96.1 Vent Mode Prvc Mechanical Rate 16 FiO2 90.0 Tidal Volume 450 PEEP 5 Sodium Potassium Chloride Carbon Dioxide Anion Gap BUN Creatinine Est GFR ( Amer) Est GFR (Non-Af Amer) POC Glucose (mg/dL) 170 H Random Glucose Hemoglobin A1c Lactic Acid Calcium Phosphorus Magnesium Total Bilirubin AST ALT Alkaline Phosphatase Troponin I NT-Pro-B Natriuret Pep Total Protein Albumin Globulin Albumin/Globulin Ratio Triglycerides Cholesterol LDL Cholesterol Direct HDL Cholesterol Urine Color Urine Clarity Urine pH Ur Specific [place] Urine Protein Urine Glucose (UA) Urine Ketones Urine Blood Urine Nitrate Urine Bilirubin Urine Urobilinogen Ur Leukocyte Esterase Urine WBC (Auto) Urine RBC (Auto) Ur Squamous Epith Cells Urine Yeast (Budding) Urine Opiates Screen Negative Urine Methadone Screen Negative Ur Barbiturates Screen Negative Ur Phencyclidine Scrn Negative Ur Amphetamines Screen Negative U Benzodiazepines Scrn Negative U Oth Cocaine Metabols Negative U Cannabinoids Screen Negative Blood Type Antibody Screen 04/10/18 04/10/18 04/10/18 01:23 01:27 05:02 WBC RBC Hgb Hct MCV MCH MCHC RDW Plt Count MPV Neut % (Auto) Lymph % (Auto) [place] % (Auto) Eos % (Auto) Baso % (Auto) Neut # (Auto) Lymph # (Auto) [place] # (Auto) Eos # (Auto) Baso # (Auto) Neutrophils % (Manual) Band Neutrophils % Lymphocytes % (Manual) Monocytes % (Manual) Eosinophils % (Manual) Basophils % (Manual) Platelet Estimate Hypochromasia (manual) Poikilocytosis (manual Anisocytosis (manual) Target Cells PT INR APTT 28 D Puncture Site pCO2 pO2 HCO3 ABG pH ABG Total CO2 ABG O2 Saturation ABG Base Excess ABG Hemoglobin ABG Carboxyhemoglobin POC ABG HHb (Measured) ABG Methemoglobin Caesar Test A-a O2 Difference Respiratory Index Hgb O2 Saturation Vent Mode Mechanical Rate FiO2 Tidal Volume PEEP Sodium Potassium Chloride Carbon Dioxide Anion Gap BUN Creatinine Est GFR ( Amer) Est GFR (Non-Af Amer) POC Glucose (mg/dL) Random Glucose Hemoglobin A1c Lactic Acid 1.6 Calcium Phosphorus Magnesium Total Bilirubin AST ALT Alkaline Phosphatase Troponin I NT-Pro-B Natriuret Pep Total Protein Albumin Globulin Albumin/Globulin Ratio Triglycerides Cholesterol LDL Cholesterol Direct HDL Cholesterol Urine Color Yellow Urine Clarity Hazy Urine pH 7.0 Ur Specific [place] 1.018 Urine Protein Negative Urine Glucose (UA) 1+ Urine Ketones Negative Urine Blood 1+ H Urine Nitrate Negative Urine Bilirubin Negative Urine Urobilinogen Normal Ur Leukocyte Esterase Trace Urine WBC (Auto) 6 H Urine RBC (Auto) 6 H Ur Squamous Epith Cells < 1 Urine Yeast (Budding) Mod H Urine Opiates Screen Urine Methadone Screen Ur Barbiturates Screen Ur Phencyclidine Scrn Ur Amphetamines Screen U Benzodiazepines Scrn U Oth Cocaine Metabols U Cannabinoids Screen Blood Type Antibody Screen 04/10/18 04/10/18 04/10/18 05:13 05:38 06:11 WBC 20.1 H RBC 2.46 L Hgb 9.2 L Hct 28.1 L MCV 94.4 D MCH 37.3 H MCHC 32.7 L RDW 14.5 Plt Count 185 MPV 8.4 Neut % (Auto) 94.8 H Lymph % (Auto) 1.2 L [place] % (Auto) 3.0 Eos % (Auto) 0.0 Baso % (Auto) 1.0 Neut # (Auto) 19.0 H Lymph # (Auto) 0.2 L [place] # (Auto) 0.6 Eos # (Auto) 0.0 Baso # (Auto) 0.2 Neutrophils % (Manual) 90 H Band Neutrophils % 6 H Lymphocytes % (Manual) 2 L Monocytes % (Manual) 2 Eosinophils % (Manual) Basophils % (Manual) Platelet Estimate Normal Hypochromasia (manual) Slight Poikilocytosis (manual Slight Anisocytosis (manual) Slight Target Cells Slight PT INR APTT Puncture Site Rb pCO2 36 pO2 167 H HCO3 26.3 ABG pH 7.46 H ABG Total CO2 26.7 ABG O2 Saturation 99.1 H ABG Base Excess 1.8 ABG Hemoglobin 9.3 L ABG Carboxyhemoglobin 1.3 POC ABG HHb (Measured) 0.9 ABG Methemoglobin 1.0 Caesar Test Na A-a O2 Difference 73.0 Respiratory Index 0.4 Hgb O2 Saturation 96.7 Vent Mode Prvc Mechanical Rate 20 FiO2 40.0 Tidal Volume 450 PEEP 5 Sodium Potassium Chloride Carbon Dioxide Anion Gap BUN Creatinine Est GFR ( Amer) Est GFR (Non-Af Amer) POC Glucose (mg/dL) 153 H Random Glucose Hemoglobin A1c Lactic Acid Calcium Phosphorus Magnesium Total Bilirubin AST ALT Alkaline Phosphatase Troponin I NT-Pro-B Natriuret Pep Total Protein Albumin Globulin Albumin/Globulin Ratio Triglycerides Cholesterol LDL Cholesterol Direct HDL Cholesterol Urine Color Urine Clarity Urine pH Ur Specific [place] Urine Protein Urine Glucose (UA) Urine Ketones Urine Blood Urine Nitrate Urine Bilirubin Urine Urobilinogen Ur Leukocyte Esterase Urine WBC (Auto) Urine RBC (Auto) Ur Squamous Epith Cells Urine Yeast (Budding) Urine Opiates Screen Urine Methadone Screen Ur Barbiturates Screen Ur Phencyclidine Scrn Ur Amphetamines Screen U Benzodiazepines Scrn U Oth Cocaine Metabols U Cannabinoids Screen Blood Type Antibody Screen 04/10/18 04/10/18 04/10/18 06:11 11:35 16:15 WBC RBC Hgb Hct MCV MCH MCHC RDW Plt Count MPV Neut % (Auto) Lymph % (Auto) [place] % (Auto) Eos % (Auto) Baso % (Auto) Neut # (Auto) Lymph # (Auto) [place] # (Auto) Eos # (Auto) Baso # (Auto) Neutrophils % (Manual) Band Neutrophils % Lymphocytes % (Manual) Monocytes % (Manual) Eosinophils % (Manual) Basophils % (Manual) Platelet Estimate Hypochromasia (manual) Poikilocytosis (manual Anisocytosis (manual) Target Cells PT INR APTT Puncture Site pCO2 pO2 HCO3 ABG pH ABG Total CO2 ABG O2 Saturation ABG Base Excess ABG Hemoglobin ABG Carboxyhemoglobin POC ABG HHb (Measured) ABG Methemoglobin Caesar Test A-a O2 Difference Respiratory Index Hgb O2 Saturation Vent Mode Mechanical Rate FiO2 Tidal Volume PEEP Sodium 140 Potassium 3.5 L Chloride 108 H Carbon Dioxide 24 Anion Gap 12 BUN 22 H Creatinine 0.7 Est GFR ( Amer) > 60 Est GFR (Non-Af Amer) > 60 POC Glucose (mg/dL) 181 H 169 H Random Glucose 153 H D Hemoglobin A1c Lactic Acid Calcium 9.0 Phosphorus 3.5 Magnesium 1.9 Total Bilirubin 0.7 AST 24 ALT 32 Alkaline Phosphatase 87 Troponin I NT-Pro-B Natriuret Pep 6150 H Total Protein 5.6 L Albumin 3.0 L Globulin 2.6 Albumin/Globulin Ratio 1.1 Triglycerides Cholesterol LDL Cholesterol Direct HDL Cholesterol Urine Color Urine Clarity Urine pH Ur Specific [place] Urine Protein Urine Glucose (UA) Urine Ketones Urine Blood Urine Nitrate Urine Bilirubin Urine Urobilinogen Ur Leukocyte Esterase Urine WBC (Auto) Urine RBC (Auto) Ur Squamous Epith Cells Urine Yeast (Budding) Urine Opiates Screen Urine Methadone Screen Ur Barbiturates Screen Ur Phencyclidine Scrn Ur Amphetamines Screen U Benzodiazepines Scrn U Oth Cocaine Metabols U Cannabinoids Screen Blood Type Antibody Screen Radiology Impressions: Radiology Impressions Head/Neck CTA 04/09/18 18:58 IMPRESSION: 1. No evidence of endoluminal thrombus,occlusion or definite significant stenosis in the intracranial arteries. 2. No evidence of hemodynamically significant stenosis in the internal carotid arteries. 3. Patent bilateral vertebral arteries. 4. 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 5. 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 Dedicated thyroid ultrasound is recommended for further evaluation. 6. Multifocal pneumonia versus metastasis in the visualized lungs. A preliminary report was provided by [facility]. Chest X-Ray 04/09/18 18:59 IMPRESSION: Patchy nodular multifocal pneumonia. Endotracheal tube is high in position and terminates in the proximal trachea. Repositioning is recommended. Head CT 04/09/18 18:59 IMPRESSION: 1. No acute intracranial abnormality. If there is a persistent focal neurologic deficit and an ongoing clinical concern for acute infarction, an MRI of the brain without intravenous contrast would be a more sensitive modality for evaluation of hyperacute/acute ischemic infarction. 2. Moderate chronic microangiopathic changes and mild age-related global parenchymal volume loss. 3. Well-circumscribed ovoid osteolytic lesion in the left parietal calvarium nonspecific, the differential considerations include benign and malignant etiologies. Correlation with MRI brain with intravenous contrast and radionuclide bone scan may be helpful for further characterization. A preliminary report was provided by [facility]. Chest CT 04/09/18 20:54 IMPRESSION: There is a large mass which appears to arise from the right lobe of the thyroid gland which exerts surrounding mass effect and results in compression of the trachea as well as the right brachiocephalic artery, subclavian and common carotid arteries.. This lesion is suspicious for a thyroid malignancy. Thyroid biopsy recommended for further evaluation. Destructive changes of the sternum and manubrium.. There are also destructive changes seen involving the C7, T1 and T2 vertebral body segments.. Findings are consistent with metastatic disease note that there appears to be a mottled appearance of many of the remaining thoracic segments which could be due to diffuse osteopenia however early metastatic deposits should be excluded. . There is also a sclerotic lesion seen within the right posterolateral margin of the T2 segment extending into the pedicle. Sclerotic lesion also present in the T2 spinous process. Bilateral multifocal patchy interstitial and nodular opacities most confluent in the upper lobes bilaterally. Air is present within the anterior aspect of the pulmonary trunk and probably within the right subclavian vein likely due to recent intravenous injection. Chest X-Ray 04/10/18 07:00 IMPRESSION: Multifocal pneumonia. Endotracheal tube terminates in the proximal trachea. Head CT 04/10/18 07:20 IMPRESSION: Developing infarct left cerebellar hemisphere. Probable old median right frontal infarct. Multiple calvarial lytic lesions suspicious for metastatic disease. EKG/Cardiology Studies: Cardiology / EKG Studies 04/09/18 18:59 ELECTROCARDIOGRAM Stat Comment: Mode Of Transportation: BED Reason For Exam: stroke Attending/Attestation - Attestation I have personally seen and examined this patient.: Yes I have fully participated in the care of the patient.: Yes I have reviewed all pertinent clinical information: Yes Notes (Text): 04/10/18 18:26 Today: March The Patient was seen and examined at the bedside, Medical records reviewed, and management issues were discussed and formulated with the house staff. I have reviewed all the relevant clinical, laboratory, hemodynamic, radiographic data and medications Events reviewed Pain issues, skin care, head of the bed elevation, glycemic control were addressed. Agree with above resident's assessment and treatment plans of care as transcribed in Dr. Zaragoza's note. Patient was admitted with acute respiratory failure from acute pulmonary edema and possible pneumonia this morning taken off sedation and successfully extubated after tolerating CPAP trial for 3 hours she is currently awake and comfortable underwent head CT scan that shows possible stroke neurology consulted and also on her chest x-ray there we found possible right clavicular fracture orthopedic also will be consulted # HOB maintained at 30 degrees. Encouraged use of IS # GI/DVT PPX # Code Status: Full code Total critical care time 42 minutes
--- NOTE | 2018-04-10 13:40 | CP.PCM.PN ---
Subjective - Date & Time of Evaluation Date of Evaluation: 04/10/18 Time of Evaluation: 03:00 - Subjective Subjective: chart review labs WBC rising radiology noted -rib fracture , thyroid finding Patient seen and daughter by bedside patient extubated recognizes me right away smiling Radiology findings discussed Rib fracture discussed-etiology? Objective - Vital Signs/Intake and Output Vital Signs (last 24 hours): Temp Pulse Resp BP Pulse Ox 98 F 59 L 19 104/77 100 04/10/18 04:00 04/10/18 07:03 04/10/18 07:03 04/10/18 09:48 04/10/18 07:03 Intake and Output: 04/10/18 04/10/18 06:59 18:59 Intake Total 778.1 252.6 Output Total 975 895 Balance -196.9 -642.4 - Medications Medications: Current Medications Albuterol/Ipratropium (Duoneb 3 Mg/0.5 Mg (3 Ml) Ud) 3 ml INH RQ6 [facility] Last Admin: 04/10/18 13:17 Dose: 3 ml Amlodipine Besylate (Norvasc) 10 mg PO DAILY [facility] Aspirin (Aspirin Chewable) 81 mg PO DAILY [facility] Clopidogrel Bisulfate (Plavix) 75 mg PO DAILY [facility] Dextrose (Dextrose 50% Inj) 0 ml IV STAT PRN; Protocol PRN Reason: Hypoglycemia Protocol Dextrose (Glutose 15) 0 gm PO ONCE PRN; Protocol PRN Reason: Hypoglycemia Protocol Enoxaparin Sodium (Lovenox) 30 mg SC DAILY [facility] Furosemide (Lasix) 40 mg IVP DAILY [facility] Last Admin: 04/10/18 09:48 Dose: 40 mg Glucagon (Glucagen Diagnostic Kit) 0 mg IM STAT PRN; Protocol PRN Reason: Hypoglycemia Protocol Heparin Sodium (Porcine) (Heparin) 5,000 units SC Q8 [facility] Last Admin: 04/10/18 05:29 Dose: 5,000 units Piperacillin Sod/Tazobactam (Sod 3.375 gm/ Sodium Chloride) 100 mls @ 200 mls/hr IVPB Q6H [facility]; Protocol Last Admin: 04/10/18 11:34 Dose: 200 mls/hr Vancomycin HCl 1 gm/ Sodium (Chloride) 250 mls @ 166.7 mls/hr IVPB Q24H [facility]; Protocol Last Admin: 04/10/18 01:55 Dose: 166.7 mls/hr Dextrose (Dextrose 5% In Water 1000 Ml) 1,000 mls @ 0 mls/hr IV .Q0M PRN; Protocol PRN Reason: Hypoglycemia Protocol Insulin Aspart (Novolog) 0 unit SC Q6H R[facility]; Protocol Last Admin: 04/10/18 11:37 Dose: Not Given Lisinopril (Zestril) 40 mg PO DAILY [facility] Methylprednisolone (Solu-Medrol) 40 mg IVP Q12H [facility] Last Admin: 04/10/18 10:52 Dose: Not Given Pantoprazole Sodium (Protonix Inj) 40 mg IVP DAILY [facility] Last Admin: 04/10/18 11:00 Dose: 40 mg Potassium Chloride (K-Dur 20 Meq Er Tab) 20 meq PO DAILY [facility]ODRIG[facility] Rosuvastatin Calcium (Crestor) 5 mg PO HS RODRIGO - Labs Labs: 04/10/18 06:11 04/10/18 06:11 PT 12.2 SECONDS (9.7-12.2) 04/09/18 19:06 INR 1.1 04/09/18 19:06 APTT 28 SECONDS (21-34) D 04/10/18 01:23 - Constitutional Appears: Other (patient seen, extubated, smiling , conversant with slurred speech, moves LUE, weak right right collarbone higher than left , ) - Head Exam Head Exam: ATRAUMATIC, NORMOCEPHALIC - Eye Exam Eye Exam: Normal appearance - ENT Exam ENT Exam: Mucous Membranes Dry - Neck Exam Neck Exam: Full ROM. absent: Tenderness (no gross mass appreciated) - Respiratory Exam Respiratory Exam: Decreased Breath Sounds (with congestion), NORMAL BREATHING PATTERN - Cardiovascular Exam Cardiovascular Exam: REGULAR RHYTHM - GI/Abdominal Exam GI & Abdominal Exam: Soft, Normal Bowel Sounds. absent: Distended, Tenderness - Extremities Exam Extremities Exam: Pedal Edema (with sponatneous movement , no deformity) - Back Exam Back Exam: absent: tenderness - Neurological Exam Neurological Exam: Alert, Awake, Oriented x3 - Psychiatric Exam Psychiatric exam: Normal Affect, Normal Mood - Skin Skin Exam: Intact, Normal Color Assessment and Plan - Assessment and Plan (Free Text) Assessment: Patient with recent CVA CAD with stent, Hypertension,COPD, readmitted from [place] after an episode of Respiratory Failure, intubated in the field cadmitted to ICU- currently extubated CHF exacebation-diuresis, cardio on case Hypertension- monitoring CVA/Debility-PT COPD- Right Clavicular fracture-etiology?- discussed with patient and family- ICU discussion-ortho referral ongoing Pneumonia-on antibiotic Thyroid mass- further evaluation when stable
[2018-04-10] MEDS: Vitamins A & D Oint UD Foilpak TOP PRN (16:28)
--- NOTE | 2018-04-10 17:26 | CT ---
Date of service: 04/10/2018 PROCEDURE: CT HEAD WITHOUT CONTRAST. HISTORY: NEW RIGHT CEREBRAL ISCHEMIC EVENT COMPARISON: 04/09/2018 TECHNIQUE: Axial computed tomography images were obtained through the head/brain without intravenous contrast. Radiation dose: Total exam DLP = 1064.26 mGy-cm. This CT exam was performed using one or more of the following dose reduction techniques: Automated exposure control, adjustment of the mA and/or kV according to patient size, and/or use of iterative reconstruction technique. FINDINGS: HEMORRHAGE: No intracranial hemorrhage. BRAIN: No intracranial mass. Developing infarct, likely subacute, left cerebellar hemisphere, not appreciated on prior examination. Encephalomalacia left paramedian frontal lobe, above the left lateral ventricle, unchanged from previous likely reflecting old infarct. Several old left basal ganglia lacunar infarcts. Old left thalamic lacunar infarct. VENTRICLES: Unremarkable. No hydrocephalus. CALVARIUM: Lytic lesion left parietal calvarium. Lytic lesion left temporal bone, petrous portion. Lytic lesion right sphenoid wing. Suspect metastatic disease. Correlate with radionuclide bone scan. PARANASAL SINUSES: Unremarkable as visualized. No significant inflammatory changes. MASTOID AIR CELLS: Unremarkable as visualized. No inflammatory changes. OTHER FINDINGS: None. IMPRESSION: Developing infarct left cerebellar hemisphere. Probable old median right frontal infarct. Multiple calvarial lytic lesions suspicious for metastatic disease.
--- NOTE | 2018-04-10 17:39 | CARD ---
APPROVED REPORT Date of service: 04/09/2018 EKG Measurement Heart [id number] <Conclusion> Sinus tachycardia Septal infarct, age undetermined ST & T wave abnormality, consider anterolateral ischemia Prolonged QT Abnormal ECG
--- NOTE | 2018-04-10 19:36 | CP.PCM.CON ---
History of Present Illness - History of Present Illness History of Present Illness: Reason for consultation: CHF 67-year-old female who was recently admitted at [facility] status post cardiac cath and RCA drug eluting stent placement, transferred from custodial after she lost consciousness and was intubated in the field. In the emergency room patient was found to have elevated PCO2. Now patient on ventilatory support and is awake and tolerating CPAP. 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 CAT scan of the head and neck No secretions from the ET tube. And patient is afebrile Review of Systems - Review of Systems Systems not reviewed;Unavailable: Intubated Physical Exam - Head Exam Head Exam: ATRAUMATIC, NORMOCEPHALIC - Eye Exam Eye Exam: Normal appearance - ENT Exam ENT Exam: Mucous Membranes Moist - Neck Exam Neck exam: Positive for: Normal Inspection - Respiratory Exam Respiratory Exam: Rales, Rhonchi - Cardiovascular Exam Cardiovascular Exam: REGULAR RHYTHM - GI/Abdominal Exam GI & Abdominal Exam: Normal Bowel Sounds - Extremities Exam Extremities exam: Positive for: normal inspection Past Patient History - Infectious Disease Hx of Infectious Diseases: None - Past Medical History & Family History Past Medical History?: Yes - Past Social History Smoking Status: Never Smoked Chewing Tobacco Use: No Cigar Use: No Alcohol: None Home Situation {Lives}: With Family - CARDIAC Hx Cardiac Disorders: Yes (CAD post stent 2 weeks ago) Hx Hypertension: Yes - PULMONARY Hx Respiratory Disorders: No Hx Chronic Obstructive Pulmonary Disease (COPD): Yes Hx Emphysema: Yes - NEUROLOGICAL Hx Neurological Disorder: No HX Cerebrovascular Accident: Yes - HEENT Hx HEENT Problems: No - RENAL Hx Chronic Kidney Disease: No - ENDOCRINE/METABOLIC Hx Endocrine Disorders: No - HEMATOLOGICAL/ONCOLOGICAL Hx Blood Disorders: No - INTEGUMENTARY Hx Dermatological Problems: No - MUSCULOSKELETAL/RHEUMATOLOGICAL Hx Musculoskeletal Disorders: No Hx Falls: No - GASTROINTESTINAL Hx Gastrointestinal Disorders: No - GENITOURINARY/GYNECOLOGICAL Hx Genitourinary Disorders: No - PSYCHIATRIC Hx Substance Use: No - SURGICAL HISTORY Hx Coronary Stent: Yes - ANESTHESIA Hx Anesthesia: No Meds Allergies/Adverse Reactions: Allergies Allergy/AdvReac Type Severity Reaction Status Date / Time No Known Allergies Allergy Verified 03/25/18 20:59 - Medications Medications: Current Medications Albuterol/Ipratropium (Duoneb 3 Mg/0.5 Mg (3 Ml) Ud) 3 ml INH RQ6 RODRIGO Last Admin: 04/10/18 19:18 Dose: 3 ml Amlodipine Besylate (Norvasc) 10 mg PO DAILY [facility] Aspirin (Aspirin Chewable) 81 mg PO DAILY [facility] Clopidogrel Bisulfate (Plavix) 75 mg PO DAILY [facility] Dextrose (Dextrose 50% Inj) 0 ml IV STAT PRN; Protocol PRN Reason: Hypoglycemia Protocol Dextrose (Glutose 15) 0 gm PO ONCE PRN; Protocol PRN Reason: Hypoglycemia Protocol Furosemide (Lasix) 40 mg IVP DAILY [facility] Last Admin: 04/10/18 09:48 Dose: 40 mg Glucagon (Glucagen Diagnostic Kit) 0 mg IM STAT PRN; Protocol PRN Reason: Hypoglycemia Protocol Heparin Sodium (Porcine) (Heparin) 5,000 units SC Q8 RODRIGO Last Admin: 04/10/18 16:27 Dose: 5,000 units Piperacillin Sod/Tazobactam (Sod 3.375 gm/ Sodium Chloride) 100 mls @ 200 mls/hr IVPB Q6H RODRIGO; Protocol Last Admin: 04/10/18 19:21 Dose: 200 mls/hr Vancomycin HCl 1 gm/ Sodium (Chloride) 250 mls @ 166.7 mls/hr IVPB Q24H RODRIGO; Protocol Last Admin: 04/10/18 01:55 Dose: 166.7 mls/hr Dextrose (Dextrose 5% In Water 1000 Ml) 1,000 mls @ 0 mls/hr IV .Q0M PRN; Protocol PRN Reason: Hypoglycemia Protocol Insulin Aspart (Novolog) 0 unit SC Q6H RODRIGO; Protocol Last Admin: 04/10/18 18:12 Dose: Not Given Lisinopril (Zestril) 40 mg PO DAILY [facility] Methylprednisolone (Solu-Medrol) 40 mg IVP Q12H [facility] Last Admin: 04/10/18 10:52 Dose: Not Given Pantoprazole Sodium (Protonix Inj) 40 mg IVP DAILY [facility] Last Admin: 04/10/18 11:00 Dose: 40 mg Potassium Chloride (K-Dur 20 Meq Er Tab) 20 meq PO DAILY [facility] Rosuvastatin Calcium (Crestor) 5 mg PO HS [facility] Vitamin A (Vitamin A & D Oint Ud Foilpak) 0.5 ea TOP Q4 PRN PRN Reason: Dry mouth Last Admin: 04/10/18 16:28 Dose: 0.5 ea Results - Vital Signs Recent Vital Signs: Last Vital Signs Temp 97.8 F 04/10/18 16:00 Pulse 85 04/10/18 18:00 Resp 22 04/10/18 18:00 BP 150/84 04/10/18 17:41 Pulse Ox 100 04/10/18 18:00 - Labs Result Diagrams: 04/10/18 06:11 04/10/18 06:11 Labs: Laboratory Results - last 24 hr 04/09/18 04/09/18 04/09/18 18:58 19:06 19:06 WBC RBC Hgb Hct MCV MCH MCHC RDW Plt Count MPV Neut % (Auto) Lymph % (Auto) [place] % (Auto) Eos % (Auto) Baso % (Auto) Neut # (Auto) Lymph # (Auto) [place] # (Auto) Eos # (Auto) Baso # (Auto) Neutrophils % (Manual) 76 H Band Neutrophils % 6 H Lymphocytes % (Manual) 11 L Monocytes % (Manual) 2 Eosinophils % (Manual) 4 Basophils % (Manual) 1 Platelet Estimate Normal Hypochromasia (manual) Poikilocytosis (manual Anisocytosis (manual) Target Cells APTT Puncture Site pCO2 pO2 HCO3 ABG pH ABG Total CO2 ABG O2 Saturation ABG Base Excess ABG Hemoglobin ABG Carboxyhemoglobin POC ABG HHb (Measured) ABG Methemoglobin Caesar Test A-a O2 Difference Respiratory Index Hgb O2 Saturation Vent Mode Mechanical Rate FiO2 Tidal Volume PEEP Sodium Potassium Chloride Carbon Dioxide Anion Gap BUN Creatinine Est GFR ( Amer) Est GFR (Non-Af Amer) POC Glucose (mg/dL) 242 H Random Glucose Lactic Acid Calcium Phosphorus Magnesium Total Bilirubin AST ALT Alkaline Phosphatase NT-Pro-B Natriuret Pep Total Protein Albumin Globulin Albumin/Globulin Ratio Urine Color Urine Clarity Urine pH Ur Specific [place] Urine Protein Urine Glucose (UA) Urine Ketones Urine Blood Urine Nitrate Urine Bilirubin Urine Urobilinogen Ur Leukocyte Esterase Urine WBC (Auto) Urine RBC (Auto) Ur Squamous Epith Cells Urine Yeast (Budding) Urine Opiates Screen Urine Methadone Screen Ur Barbiturates Screen Ur Phencyclidine Scrn Ur Amphetamines Screen U Benzodiazepines Scrn U Oth Cocaine Metabols U Cannabinoids Screen Blood Type O POSITIVE Antibody Screen Negative 04/09/18 04/09/18 04/10/18 19:45 20:02 01:06 WBC RBC Hgb Hct MCV MCH MCHC RDW Plt Count MPV Neut % (Auto) Lymph % (Auto) [place] % (Auto) Eos % (Auto) Baso % (Auto) Neut # (Auto) Lymph # (Auto) [place] # (Auto) Eos # (Auto) Baso # (Auto) Neutrophils % (Manual) Band Neutrophils % Lymphocytes % (Manual) Monocytes % (Manual) Eosinophils % (Manual) Basophils % (Manual) Platelet Estimate Hypochromasia (manual) Poikilocytosis (manual Anisocytosis (manual) Target Cells APTT Puncture Site Rba pCO2 58 H pO2 319 H HCO3 24.3 ABG pH 7.27 L ABG Total CO2 28.4 H ABG O2 Saturation 99.8 H ABG Base Excess -0.8 ABG Hemoglobin 9.3 L ABG Carboxyhemoglobin 2.1 H POC ABG HHb (Measured) 0.2 ABG Methemoglobin 1.6 Caesar Test Pos A-a O2 Difference 250.0 Respiratory Index 0.8 Hgb O2 Saturation 96.1 Vent Mode Prvc Mechanical Rate 16 FiO2 90.0 Tidal Volume 450 PEEP 5 Sodium Potassium Chloride Carbon Dioxide Anion Gap BUN Creatinine Est GFR ( Amer) Est GFR (Non-Af Amer) POC Glucose (mg/dL) 170 H Random Glucose Lactic Acid Calcium Phosphorus Magnesium Total Bilirubin AST ALT Alkaline Phosphatase NT-Pro-B Natriuret Pep Total Protein Albumin Globulin Albumin/Globulin Ratio Urine Color Urine Clarity Urine pH Ur Specific [place] Urine Protein Urine Glucose (UA) Urine Ketones Urine Blood Urine Nitrate Urine Bilirubin Urine Urobilinogen Ur Leukocyte Esterase Urine WBC (Auto) Urine RBC (Auto) Ur Squamous Epith Cells Urine Yeast (Budding) Urine Opiates Screen Negative Urine Methadone Screen Negative Ur Barbiturates Screen Negative Ur Phencyclidine Scrn Negative Ur Amphetamines Screen Negative U Benzodiazepines Scrn Negative U Oth Cocaine Metabols Negative U Cannabinoids Screen Negative Blood Type Antibody Screen 04/10/18 04/10/18 04/10/18 01:23 01:27 05:02 WBC RBC Hgb Hct MCV MCH MCHC RDW Plt Count MPV Neut % (Auto) Lymph % (Auto) [place] % (Auto) Eos % (Auto) Baso % (Auto) Neut # (Auto) Lymph # (Auto) [place] # (Auto) Eos # (Auto) Baso # (Auto) Neutrophils % (Manual) Band Neutrophils % Lymphocytes % (Manual) Monocytes % (Manual) Eosinophils % (Manual) Basophils % (Manual) Platelet Estimate Hypochromasia (manual) Poikilocytosis (manual Anisocytosis (manual) Target Cells APTT 28 D Puncture Site pCO2 pO2 HCO3 ABG pH ABG Total CO2 ABG O2 Saturation ABG Base Excess ABG Hemoglobin ABG Carboxyhemoglobin POC ABG HHb (Measured) ABG Methemoglobin Caesar Test A-a O2 Difference Respiratory Index Hgb O2 Saturation Vent Mode Mechanical Rate FiO2 Tidal Volume PEEP Sodium Potassium Chloride Carbon Dioxide Anion Gap BUN Creatinine Est GFR ( Amer) Est GFR (Non-Af Amer) POC Glucose (mg/dL) Random Glucose Lactic Acid 1.6 Calcium Phosphorus Magnesium Total Bilirubin AST ALT Alkaline Phosphatase NT-Pro-B Natriuret Pep Total Protein Albumin Globulin Albumin/Globulin Ratio Urine Color Yellow Urine Clarity Hazy Urine pH 7.0 Ur Specific [place] 1.018 Urine Protein Negative Urine Glucose (UA) 1+ Urine Ketones Negative Urine Blood 1+ H Urine Nitrate Negative Urine Bilirubin Negative Urine Urobilinogen Normal Ur Leukocyte Esterase Trace Urine WBC (Auto) 6 H Urine RBC (Auto) 6 H Ur Squamous Epith Cells < 1 Urine Yeast (Budding) Mod H Urine Opiates Screen Urine Methadone Screen Ur Barbiturates Screen Ur Phencyclidine Scrn Ur Amphetamines Screen U Benzodiazepines Scrn U Oth Cocaine Metabols U Cannabinoids Screen Blood Type Antibody Screen 04/10/18 04/10/18 04/10/18 05:13 05:38 06:11 WBC 20.1 H RBC 2.46 L Hgb 9.2 L Hct 28.1 L MCV 94.4 D MCH 37.3 H MCHC 32.7 L RDW 14.5 Plt Count 185 MPV 8.4 Neut % (Auto) 94.8 H Lymph % (Auto) 1.2 L [place] % (Auto) 3.0 Eos % (Auto) 0.0 Baso % (Auto) 1.0 Neut # (Auto) 19.0 H Lymph # (Auto) 0.2 L [place] # (Auto) 0.6 Eos # (Auto) 0.0 Baso # (Auto) 0.2 Neutrophils % (Manual) 90 H Band Neutrophils % 6 H Lymphocytes % (Manual) 2 L Monocytes % (Manual) 2 Eosinophils % (Manual) Basophils % (Manual) Platelet Estimate Normal Hypochromasia (manual) Slight Poikilocytosis (manual Slight Anisocytosis (manual) Slight Target Cells Slight APTT Puncture Site Rb pCO2 36 pO2 167 H HCO3 26.3 ABG pH 7.46 H ABG Total CO2 26.7 ABG O2 Saturation 99.1 H ABG Base Excess 1.8 ABG Hemoglobin 9.3 L ABG Carboxyhemoglobin 1.3 POC ABG HHb (Measured) 0.9 ABG Methemoglobin 1.0 Caesar Test Na A-a O2 Difference 73.0 Respiratory Index 0.4 Hgb O2 Saturation 96.7 Vent Mode Prvc Mechanical Rate 20 FiO2 40.0 Tidal Volume 450 PEEP 5 Sodium Potassium Chloride Carbon Dioxide Anion Gap BUN Creatinine Est GFR ( Amer) Est GFR (Non-Af Amer) POC Glucose (mg/dL) 153 H Random Glucose Lactic Acid Calcium Phosphorus Magnesium Total Bilirubin AST ALT Alkaline Phosphatase NT-Pro-B Natriuret Pep Total Protein Albumin Globulin Albumin/Globulin Ratio Urine Color Urine Clarity Urine pH Ur Specific [place] Urine Protein Urine Glucose (UA) Urine Ketones Urine Blood Urine Nitrate Urine Bilirubin Urine Urobilinogen Ur Leukocyte Esterase Urine WBC (Auto) Urine RBC (Auto) Ur Squamous Epith Cells Urine Yeast (Budding) Urine Opiates Screen Urine Methadone Screen Ur Barbiturates Screen Ur Phencyclidine Scrn Ur Amphetamines Screen U Benzodiazepines Scrn U Oth Cocaine Metabols U Cannabinoids Screen Blood Type Antibody Screen 04/10/18 04/10/18 04/10/18 06:11 11:35 16:15 WBC RBC Hgb Hct MCV MCH MCHC RDW Plt Count MPV Neut % (Auto) Lymph % (Auto) [place] % (Auto) Eos % (Auto) Baso % (Auto) Neut # (Auto) Lymph # (Auto) [place] # (Auto) Eos # (Auto) Baso # (Auto) Neutrophils % (Manual) Band Neutrophils % Lymphocytes % (Manual) Monocytes % (Manual) Eosinophils % (Manual) Basophils % (Manual) Platelet Estimate Hypochromasia (manual) Poikilocytosis (manual Anisocytosis (manual) Target Cells APTT Puncture Site pCO2 pO2 HCO3 ABG pH ABG Total CO2 ABG O2 Saturation ABG Base Excess ABG Hemoglobin ABG Carboxyhemoglobin POC ABG HHb (Measured) ABG Methemoglobin Caesar Test A-a O2 Difference Respiratory Index Hgb O2 Saturation Vent Mode Mechanical Rate FiO2 Tidal Volume PEEP Sodium 140 Potassium 3.5 L Chloride 108 H Carbon Dioxide 24 Anion Gap 12 BUN 22 H Creatinine 0.7 Est GFR ( Amer) > 60 Est GFR (Non-Af Amer) > 60 POC Glucose (mg/dL) 181 H 169 H Random Glucose 153 H D Lactic Acid Calcium 9.0 Phosphorus 3.5 Magnesium 1.9 Total Bilirubin 0.7 AST 24 ALT 32 Alkaline Phosphatase 87 NT-Pro-B Natriuret Pep 6150 H Total Protein 5.6 L Albumin 3.0 L Globulin 2.6 Albumin/Globulin Ratio 1.1 Urine Color Urine Clarity Urine pH Ur Specific [place] Urine Protein Urine Glucose (UA) Urine Ketones Urine Blood Urine Nitrate Urine Bilirubin Urine Urobilinogen Ur Leukocyte Esterase Urine WBC (Auto) Urine RBC (Auto) Ur Squamous Epith Cells Urine Yeast (Budding) Urine Opiates Screen Urine Methadone Screen Ur Barbiturates Screen Ur Phencyclidine Scrn Ur Amphetamines Screen U Benzodiazepines Scrn U Oth Cocaine Metabols U Cannabinoids Screen Blood Type Antibody Screen Assessment & Plan - Assessment and Plan (Free Text) Assessment: 1. Acute on Chronic diastolic CHF 2. Resp Failure 3. Sepsis/? UTI-Pneumonia Lasix IV as needed Continue antiplatelets
[2018-04-11] MEDS: (Novolog) Insulin Aspart, Recombinant 100 u/ml 10 ml vial SC SCH ×4 (00:28→19:12)
[2018-04-11] MEDS: Albuterol-Ipratrop 3 mg / 0.5 (3 ml) UD INH SCH ×4 (01:24→19:49)
[2018-04-11] MEDS: Piperacillin/Tazobact 3.375 GM in Sodium Chloride 100 ML IVPB SCH ×4 (05:14→22:45)
[2018-04-11 06:45] LABS: BASO # 0.1 K/uL (0.0-0.2); BASO % 0.5 % (0.0-2.0); EOS % 0.1 % (0.0-4.0); HEMOGLOBIN 10.5 g/dL (11.0-16.0); LYMPH # 0.2 K/uL (1.0-4.3); LYMPH % 1.2 % (20.0-40.0); MEAN CELL VOLUME 95.1 fL (81.0-99.0); MEAN CORPUSCULAR HEMOGLOBIN 30.9 pg (27.0-31.0); MEAN CORPUSCULAR HGB CONC 32.5 g/dL (33.0-37.0); MEAN PLATELET VOLUME 8.7 fL (7.2-11.7); MONO # 0.6 K/uL (0.0-0.8); NEUT # 17.6 K/uL (1.8-7.0); NEUT % 95.2 % (50.0-75.0); PLATELET COUNT 243 K/uL (130-400); RED CELL DISTRIBUTION WIDTH 14.2 % (11.5-14.5); WHITE BLOOD COUNT 18.5 K/uL (4.8-10.8)
[2018-04-11 07:00] LABS: ALB/GLOB RATIO 1.2 (1.0-2.1); ALBUMIN 3.8 g/dL (3.5-5.0); CALCIUM 10.1 mg/dl (8.6-10.4)
--- NOTE | 2018-04-11 08:33 | CP.PCM.PN ---
Subjective - Date & Time of Evaluation Date of Evaluation: 04/11/18 Time of Evaluation: 09:00 - Subjective Subjective: chart review vitals noted BP -going up ortho evaluation pending urine culture positove for yeast patient seen awake alert, conversant with slurred speech wanted to eat- but has pending tests fusther discussion by bedside does not complain of pain Objective - Vital Signs/Intake and Output Vital Signs (last 24 hours): Temp Pulse Resp BP Pulse Ox 98 F 67 16 146/81 100 04/11/18 04:00 04/11/18 07:04 04/11/18 07:04 04/11/18 07:04 04/11/18 07:04 Intake and Output: 04/11/18 04/11/18 06:59 18:59 Intake Total 450 0 Output Total 1550 125 Balance -1100 -125 - Medications Medications: Current Medications Albuterol/Ipratropium (Duoneb 3 Mg/0.5 Mg (3 Ml) Ud) 3 ml INH RQ6 [facility] Last Admin: 04/11/18 07:41 Dose: 3 ml Amlodipine Besylate (Norvasc) 10 mg PO DAILY [facility] Aspirin (Aspirin Chewable) 81 mg PO DAILY [facility] Clopidogrel Bisulfate (Plavix) 75 mg PO DAILY [facility] Dextrose (Dextrose 50% Inj) 0 ml IV STAT PRN; Protocol PRN Reason: Hypoglycemia Protocol Dextrose (Glutose 15) 0 gm PO ONCE PRN; Protocol PRN Reason: Hypoglycemia Protocol Glucagon (Glucagen Diagnostic Kit) 0 mg IM STAT PRN; Protocol PRN Reason: Hypoglycemia Protocol Heparin Sodium (Porcine) (Heparin) 5,000 units SC Q8 [facility] Last Admin: 04/11/18 05:13 Dose: 5,000 units Piperacillin Sod/Tazobactam (Sod 3.375 gm/ Sodium Chloride) 100 mls @ 200 mls/hr IVPB Q6H [facility]; Protocol Last Admin: 04/11/18 05:14 Dose: 200 mls/hr Vancomycin HCl 1 gm/ Sodium (Chloride) 250 mls @ 166.7 mls/hr IVPB Q24H [facility]; Protocol Last Admin: 04/11/18 00:22 Dose: 166.7 mls/hr Dextrose (Dextrose 5% In Water 1000 Ml) 1,000 mls @ 0 mls/hr IV .Q0M PRN; Protocol PRN Reason: Hypoglycemia Protocol Insulin Aspart (Novolog) 0 unit SC Q6H [facility]; Protocol Last Admin: 04/11/18 08:03 Dose: Not Given Lisinopril (Zestril) 40 mg PO DAILY [facility] Methylprednisolone (Solu-Medrol) 40 mg IVP Q12H [facility] Last Admin: 04/10/18 22:30 Dose: Not Given Pantoprazole Sodium (Protonix Inj) 40 mg IVP DAILY [facility] Last Admin: 04/10/18 11:00 Dose: 40 mg Potassium Chloride (K-Dur 20 Meq Er Tab) 20 meq PO DAILY [facility] Rosuvastatin Calcium (Crestor) 5 mg PO HS [facility] Last Admin: 04/10/18 23:37 Dose: Not Given Vitamin A (Vitamin A & D Oint Ud Foilpak) 0.5 ea TOP Q4 PRN PRN Reason: Dry mouth Last Admin: 04/10/18 16:28 Dose: 0.5 ea - Labs Labs: 04/11/18 06:40 04/11/18 06:40 PT 12.2 SECONDS (9.7-12.2) 04/09/18 19:06 INR 1.1 04/09/18 19:06 APTT 28 SECONDS (21-34) D 04/10/18 01:23 - Constitutional Appears: No Acute Distress - Head Exam Head Exam: ATRAUMATIC, NORMOCEPHALIC - ENT Exam ENT Exam: Mucous Membranes Dry - Neck Exam Neck Exam: Full ROM. absent: Tenderness - Respiratory Exam Respiratory Exam: Decreased Breath Sounds (with slight congestion but improving sounds ), NORMAL BREATHING PATTERN - Cardiovascular Exam Cardiovascular Exam: REGULAR RHYTHM - GI/Abdominal Exam GI & Abdominal Exam: Soft, Normal Bowel Sounds. absent: Distended, Tenderness - Back Exam Back Exam: Full ROM - Neurological Exam Neurological Exam: Alert, Awake, Oriented x3 (weak righ side, slurred speech weak right corner mouth,) - Psychiatric Exam Psychiatric exam: Normal Affect, Normal Mood - Skin Skin Exam: Intact, Normal Color Assessment and Plan - Assessment and Plan (Free Text) Assessment: Patient with history of Hypertension with recent CVA-with right sided weakness CAD post stent on plavix aspirin PT Hypertension and Anxiety -adjust meds accordingly COPD/Emphysema admitted for Respiratory failure- with CXR_CHF, intubated in the field right clavicular fracture -follow up ortho extubated newCVA- further Neuro/cardio evaluation ongoing
[2018-04-11 08:51] LABS: ANISOCYTOSIS SLIGHT; BANDS 6 % (0-2); LYMPHOCYTE 1 % (20-40); MONOCYTE 3 % (0-10); NEUTROPHIL 90 % (50-75); PLATELET ESTIMATE NORMAL (NORMAL); TOTAL CELLS COUNTED 100
[2018-04-11 08:52] LABS: HYPOCHROMIC SLIGHT; POLYCHROMIC SLIGHT
[2018-04-11 08:53] LABS: TOXIC GRANULATION PRESENT
[2018-04-11] MEDS ORDERED: Enoxaparin 30 mg Syringe SC SCH (10:00)
--- NOTE | 2018-04-11 11:03 | CP.PCM.PN ---
Subjective - Date & Time of Evaluation Date of Evaluation: 04/11/18 Time of Evaluation: 08:00 - Subjective Subjective: Patient seen and examined Patient is awake and responsive patient extubated and in no respiratory distress Wants to eat and waiting for swallowing evaluation Afebrile Short of breath overnight and received Lasix Objective - Vital Signs/Intake and Output Vital Signs (last 24 hours): Temp Pulse Resp BP Pulse Ox 98 F 67 16 159/102 H 100 04/11/18 04:00 04/11/18 07:04 04/11/18 07:04 04/11/18 10:01 04/11/18 07:04 Intake and Output: 04/11/18 04/11/18 06:59 18:59 Intake Total 450 0 Output Total 1550 125 Balance -1100 -125 - Medications Medications: Current Medications Albuterol/Ipratropium (Duoneb 3 Mg/0.5 Mg (3 Ml) Ud) 3 ml INH RQ6 [facility] Last Admin: 04/11/18 07:41 Dose: 3 ml Amlodipine Besylate (Norvasc) 10 mg PO DAILY [facility] Aspirin (Aspirin Chewable) 81 mg PO DAILY [facility] Clopidogrel Bisulfate (Plavix) 75 mg PO DAILY [facility] Dextrose (Dextrose 50% Inj) 0 ml IV STAT PRN; Protocol PRN Reason: Hypoglycemia Protocol Dextrose (Glutose 15) 0 gm PO ONCE PRN; Protocol PRN Reason: Hypoglycemia Protocol Furosemide (Lasix) 20 mg IVP DAILY [facility] Last Admin: 04/11/18 10:01 Dose: 20 mg Glucagon (Glucagen Diagnostic Kit) 0 mg IM STAT PRN; Protocol PRN Reason: Hypoglycemia Protocol Heparin Sodium (Porcine) (Heparin) 5,000 units SC Q8 [facility] Last Admin: 04/11/18 05:13 Dose: 5,000 units Piperacillin Sod/Tazobactam (Sod 3.375 gm/ Sodium Chloride) 100 mls @ 200 mls/hr IVPB Q6H [facility]; Protocol Last Admin: 04/11/18 05:14 Dose: 200 mls/hr Vancomycin HCl 1 gm/ Sodium (Chloride) 250 mls @ 166.7 mls/hr IVPB Q24H [facility]; Protocol Last Admin: 04/11/18 00:22 Dose: 166.7 mls/hr Dextrose (Dextrose 5% In Water 1000 Ml) 1,000 mls @ 0 mls/hr IV .Q0M PRN; Protocol PRN Reason: Hypoglycemia Protocol Insulin Aspart (Novolog) 0 unit SC Q6H [facility]; Protocol Last Admin: 04/11/18 08:03 Dose: Not Given Lisinopril (Zestril) 40 mg PO DAILY [facility] Methylprednisolone (Solu-Medrol) 40 mg IVP Q12H [facility] Last Admin: 04/10/18 22:30 Dose: Not Given Pantoprazole Sodium (Protonix Inj) 40 mg IVP DAILY [facility] Last Admin: 04/11/18 09:56 Dose: 40 mg Potassium Chloride (K-Dur 20 Meq Er Tab) 20 meq PO DAILY [facility] Rosuvastatin Calcium (Crestor) 5 mg PO HS [facility] Last Admin: 04/10/18 23:37 Dose: Not Given Vitamin A (Vitamin A & D Oint Ud Foilpak) 0.5 ea TOP Q4 PRN PRN Reason: Dry mouth Last Admin: 04/10/18 16:28 Dose: 0.5 ea - Labs Labs: 04/11/18 06:40 04/11/18 06:40 PT 12.2 SECONDS (9.7-12.2) 04/09/18 19:06 INR 1.1 04/09/18 19:06 APTT 28 SECONDS (21-34) D 04/10/18 01:23 - Head Exam Head Exam: ATRAUMATIC, NORMOCEPHALIC - ENT Exam ENT Exam: Mucous Membranes Moist - Neck Exam Neck Exam: Normal Inspection - Respiratory Exam Respiratory Exam: Decreased Breath Sounds - Cardiovascular Exam Cardiovascular Exam: REGULAR RHYTHM - GI/Abdominal Exam GI & Abdominal Exam: Soft, Normal Bowel Sounds Assessment and Plan (1) Acute respiratory failure with hypoxia and hypercapnia Assessment & Plan: Patient extubated yesterday and in no respiratory distress Chest x-ray noted with improving congestion/infiltrate Continue nebulizer treatment, Lasix and antibiotics For MRI of head Status: Acute
--- NOTE | 2018-04-11 11:04 | RAD ---
Date of service: 04/11/2018 HISTORY: pna vs chf COMPARISON: Portable chest 04/10/2018. FINDINGS: LUNGS: Patient appears to been extubated with nasogastric tube also not identified. Left basilar atelectasis favored over infiltrate. Trace scattered patchy density bilaterally again evident, but diminished overall. PLEURA: No significant pleural effusion identified, no pneumothorax apparent. CARDIOVASCULAR: Calcific atherosclerotic changes are seen related to the thoracic aorta. Stable mild cardiomegaly. No pulmonary vascular congestion. OSSEOUS STRUCTURES: No significant abnormalities. VISUALIZED UPPER ABDOMEN: Normal. OTHER FINDINGS: None. IMPRESSION: Interval medial left basilar atelectasis. Diminishing scattered patchy density identified bilaterally. Remaining lung bond clear. Stable cardiomegaly. No pulmonary vascular congestion.
--- NOTE | 2018-04-11 11:32 | CP.CCUPN ---
CCU Subjective - Physician Review Events Since Last Encounter (Free Text): 04/11/18 11:32 Patient is a 67-year-old female admitted with acute respiratory failure intubated, extubated. Patient is currently using nasal cannula. She has a pathological right clavicular fracture. 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 Patient is also having some hoarseness otherwise. CAT scan of the chest showing evidence of right thyroid gland enlargement, and masslike lesion. On examination: Currently vital signs: Afebrile Hoarseness otherwise present. Chest good air entry Regular heart sounds Nontender abdomen 92/min 96% 168/97 Labs reviewed Chest x-ray is clear looking patient is currently on vancomycin, Zosyn and also methylprednisolone. MRI of the brain is pending. But recent MRI was negative for any metastatic disease which was done a week ago Assessment and recommendation: 67-year-old female with a history of hypertension CVA admitted recently, admitted now with acute respiratory failure likely secondary to stridor, possible thyroid mass, pathological clavicular fracture. MRI pending Continue the current treatment. Overall prognosis is poor. DVT and GI prophylaxis. Patient may need biopsy of the thyroid gland, also may need nuclear scan pending and will follow the patient CCU Objective - Vital Signs / Intake & Output Vital Signs (Last 4 hours): Vital Signs BP 04/11/18 10:01 159/102 H Intake and Output (Last 8hrs): Intake & Output 04/10/18 04/11/18 04/11/18 22:59 06:59 14:59 Intake Total 450 0 Output Total 870 1050 125 Balance -870 -600 -125 Weight 85 lb 9.6 oz Intake: Intake, IV Amount 450 Right Antecubital 450 Oral 0 0 Output: Urine 870 1050 125 Urethral (Walsh) 870 1050 125 - Physical Exam Head: Positive for: Atraumatic, Normocephalic Pupils: Positive for: PERRL Extroacular Muscles: Positive for: EOMI Conjunctiva: Positive for: Normal Mouth: Positive for: Moist Mucous Membranes Neck: Positive for: Normal Range of Motion Respiratory/Chest: Positive for: Good Air Exchange, Decreased Breath Sounds Abdomen: Positive for: Normal Bowel Sounds Upper Extremity: Positive for: Other (limited movement left upper extremity) Lower Extremity: Positive for: Edema Skin: Positive for: Warm, Normal Color Psychiatric: Positive for: Alert, Oriented x 3 - Medications Active Medications: Active Medications Generic Name Dose Route Start Last Admin Trade Name Freq PRN Reason Stop Dose Admin Albuterol/Ipratropium 3 ml 04/10/18 02:00 04/11/18 07:41 Duoneb 3 Mg/0.5 Mg (3 Ml) Ud INH 3 ml RQ6 [facility] Administration Amlodipine Besylate 10 mg 04/11/18 10:00 Norvasc PO DAILY [facility] Aspirin 81 mg 04/11/18 10:00 Aspirin Chewable PO DAILY [facility] Clopidogrel Bisulfate 75 mg 04/11/18 10:00 Plavix PO DAILY [facility] Dextrose 0 ml 04/09/18 23:39 Dextrose 50% Inj IV STAT PRN Hypoglycemia Protocol Protocol Dextrose 0 gm 04/09/18 23:39 Glutose 15 PO ONCE PRN Hypoglycemia Protocol Protocol Furosemide 20 mg 04/11/18 10:00 04/11/18 10:01 Lasix IVP 20 mg DAILY [facility] Administration Glucagon 0 mg 04/09/18 23:39 Glucagen Diagnostic Kit IM STAT PRN Hypoglycemia Protocol Protocol Heparin Sodium (Porcine) 5,000 units 04/09/18 23:45 04/11/18 05:13 Heparin SC 5,000 units Q8 [facility] Administration Piperacillin Sod/Tazobactam 100 mls @ 200 mls/hr 04/09/18 23:45 04/11/18 05:14 Sod 3.375 gm/ Sodium Chloride IVPB 200 mls/hr Q6H [facility] Administration Protocol Vancomycin HCl 1 gm/ Sodium 250 mls @ 166.7 mls/hr 04/09/18 23:45 04/11/18 00:22 Chloride IVPB 166.7 mls/hr Q24H [facility] Administration Protocol Dextrose 1,000 mls @ 0 mls/hr 04/09/18 23:39 Dextrose 5% In Water 1000 Ml IV .Q0M PRN Hypoglycemia Protocol Protocol Per Protocol Insulin Aspart 0 unit 04/09/18 23:45 04/11/18 08:03 Novolog SC Not Given Q6H [facility] Protocol Lisinopril 40 mg 04/11/18 10:00 Zestril PO DAILY [facility] Methylprednisolone 40 mg 04/10/18 10:31 04/10/18 22:30 Solu-Medrol IVP Not Given Q12H [facility] Pantoprazole Sodium 40 mg 04/10/18 10:00 04/11/18 09:56 Protonix Inj IVP 40 mg DAILY [facility] Administration Potassium Chloride 20 meq 04/11/18 10:00 K-Dur 20 Meq Er Tab PO DAILY [facility] Rosuvastatin Calcium 5 mg 04/10/18 22:00 04/10/18 23:37 Crestor PO Not Given HS [facility] Vitamin A 0.5 ea 04/10/18 14:21 04/10/18 16:28 Vitamin A & D Oint Ud Foilpak TOP 0.5 ea Q4 PRN Administration Dry mouth - Patient Studies Lab Studies: Microbiology Studies 04/10/18 00:59 MRSA Culture (Admit) - Final Nose MRSA NOT DETECTED 04/10/18 01:31 Blood Culture - Preliminary Blood-Venous NO GROWTH AFTER 24 HOURS 04/10/18 01:31 Blood Culture - Preliminary Blood-Venous NO GROWTH AFTER 24 HOURS 04/10/18 00:59 Gram Stain - Final Trachasp Lab Studies 04/11/18 04/11/18 04/11/18 Range/Units 11:20 06:40 06:40 WBC 18.5 H (4.8-10.8) K/uL RBC 3.40 L (3.80-5.20) Mil/uL Hgb 10.5 L (11.0-16.0) g/dL Hct 32.3 L (34.0-47.0) % MCV 95.1 (81.0-99.0) fL MCH 30.9 (27.0-31.0) pg MCHC 32.5 L (33.0-37.0) g/dL RDW 14.2 (11.5-14.5) % Plt Count 243 (130-400) K/uL MPV 8.7 (7.2-11.7) fL Neut % (Auto) 95.2 H (50.0-75.0) % Lymph % (Auto) 1.2 L (20.0-40.0) % Christian % (Auto) 3.0 (0.0-10.0) % Eos % (Auto) 0.1 (0.0-4.0) % Baso % (Auto) 0.5 (0.0-2.0) % Neut # (Auto) 17.6 H (1.8-7.0) K/uL Lymph # (Auto) 0.2 L (1.0-4.3) K/uL Christian # (Auto) 0.6 (0.0-0.8) K/uL Eos # (Auto) 0.0 (0.0-0.7) K/uL Baso # (Auto) 0.1 (0.0-0.2) K/uL Neutrophils % (Manual) 90 H (50-75) % Band Neutrophils % 6 H (0-2) % Lymphocytes % (Manual) 1 L (20-40) % Monocytes % (Manual) 3 (0-10) % Toxic Granulation Present Platelet Estimate Normal (NORMAL) Polychromasia Slight Hypochromasia (manual) Slight Anisocytosis (manual) Slight Macrocytosis (manual) Slight Sodium 147 (132-148) mmol/L Potassium 3.7 (3.6-5.2) mmol/L Chloride 108 H (98-107) mmol/L Carbon Dioxide 31 H (22-30) mmol/L Anion Gap 11 (10-20) BUN 35 H (7-17) mg/dL Creatinine 1.3 H (0.7-1.2) mg/dL Est GFR ( Amer) 49 Est GFR (Non-Af Amer) 41 POC Glucose (mg/dL) 146 H (65-110) mg/dL Random Glucose 152 H (65-105) mg/dL Calcium 10.1 (8.6-10.4) mg/dl Phosphorus 4.2 (2.5-4.5) mg/dL Magnesium 2.3 (1.6-2.3) mg/dL Total Bilirubin 0.8 (0.2-1.3) mg/dL AST 37 H D (14-36) U/L ALT 25 (9-52) U/L Alkaline Phosphatase 109 (38-126) U/L Total Protein 7.1 (6.3-8.3) g/dL Albumin 3.8 (3.5-5.0) g/dL Globulin 3.3 (2.2-3.9) gm/dL Albumin/Globulin Ratio 1.2 (1.0-2.1) Triglycerides 105 D (0-149) mg/dL Cholesterol 219 H (0-199) mg/dL LDL Cholesterol Direct 115 (0-129) mg/dL HDL Cholesterol 80 H (30-70) mg/dL 04/10/18 04/10/18 04/10/18 Range/Units 21:03 16:15 11:35 WBC (4.8-10.8) K/uL RBC (3.80-5.20) Mil/uL Hgb (11.0-16.0) g/dL Hct (34.0-47.0) % MCV (81.0-99.0) fL MCH (27.0-31.0) pg MCHC (33.0-37.0) g/dL RDW (11.5-14.5) % Plt Count (130-400) K/uL MPV (7.2-11.7) fL Neut % (Auto) (50.0-75.0) % Lymph % (Auto) (20.0-40.0) % Christian % (Auto) (0.0-10.0) % Eos % (Auto) (0.0-4.0) % Baso % (Auto) (0.0-2.0) % Neut # (Auto) (1.8-7.0) K/uL Lymph # (Auto) (1.0-4.3) K/uL Christian # (Auto) (0.0-0.8) K/uL Eos # (Auto) (0.0-0.7) K/uL Baso # (Auto) (0.0-0.2) K/uL Neutrophils % (Manual) (50-75) % Band Neutrophils % (0-2) % Lymphocytes % (Manual) (20-40) % Monocytes % (Manual) (0-10) % Toxic Granulation Platelet Estimate (NORMAL) Polychromasia Hypochromasia (manual) Anisocytosis (manual) Macrocytosis (manual) Sodium (132-148) mmol/L Potassium (3.6-5.2) mmol/L Chloride (98-107) mmol/L Carbon Dioxide (22-30) mmol/L Anion Gap (10-20) BUN (7-17) mg/dL Creatinine (0.7-1.2) mg/dL Est GFR ( Amer) Est GFR (Non-Af Amer) POC Glucose (mg/dL) 164 H 169 H 181 H (65-110) mg/dL Random Glucose (65-105) mg/dL Calcium (8.6-10.4) mg/dl Phosphorus (2.5-4.5) mg/dL Magnesium (1.6-2.3) mg/dL Total Bilirubin (0.2-1.3) mg/dL AST (14-36) U/L ALT (9-52) U/L Alkaline Phosphatase (38-126) U/L Total Protein (6.3-8.3) g/dL Albumin (3.5-5.0) g/dL Globulin (2.2-3.9) gm/dL Albumin/Globulin Ratio (1.0-2.1) Triglycerides (0-149) mg/dL Cholesterol (0-199) mg/dL LDL Cholesterol Direct (0-129) mg/dL HDL Cholesterol (30-70) mg/dL Laboratory Results - last 24 hr 04/10/18 04/10/18 04/10/18 11:35 16:15 21:03 WBC RBC Hgb Hct MCV MCH MCHC RDW Plt Count MPV Neut % (Auto) Lymph % (Auto) Christian % (Auto) Eos % (Auto) Baso % (Auto) Neut # (Auto) Lymph # (Auto) Christian # (Auto) Eos # (Auto) Baso # (Auto) Neutrophils % (Manual) Band Neutrophils % Lymphocytes % (Manual) Monocytes % (Manual) Toxic Granulation Platelet Estimate Polychromasia Hypochromasia (manual) Anisocytosis (manual) Macrocytosis (manual) Sodium Potassium Chloride Carbon Dioxide Anion Gap BUN Creatinine Est GFR ( Amer) Est GFR (Non-Af Amer) POC Glucose (mg/dL) 181 H 169 H 164 H Random Glucose Calcium Phosphorus Magnesium Total Bilirubin AST ALT Alkaline Phosphatase Total Protein Albumin Globulin Albumin/Globulin Ratio Triglycerides Cholesterol LDL Cholesterol Direct HDL Cholesterol 04/11/18 04/11/18 04/11/18 06:40 06:40 11:20 WBC 18.5 H RBC 3.40 L Hgb 10.5 L Hct 32.3 L MCV 95.1 MCH 30.9 MCHC 32.5 L RDW 14.2 Plt Count 243 MPV 8.7 Neut % (Auto) 95.2 H Lymph % (Auto) 1.2 L Christian % (Auto) 3.0 Eos % (Auto) 0.1 Baso % (Auto) 0.5 Neut # (Auto) 17.6 H Lymph # (Auto) 0.2 L Christian # (Auto) 0.6 Eos # (Auto) 0.0 Baso # (Auto) 0.1 Neutrophils % (Manual) 90 H Band Neutrophils % 6 H Lymphocytes % (Manual) 1 L Monocytes % (Manual) 3 Toxic Granulation Present Platelet Estimate Normal Polychromasia Slight Hypochromasia (manual) Slight Anisocytosis (manual) Slight Macrocytosis (manual) Slight Sodium 147 Potassium 3.7 Chloride 108 H Carbon Dioxide 31 H Anion Gap 11 BUN 35 H Creatinine 1.3 H Est GFR ( Amer) 49 Est GFR (Non-Af Amer) 41 POC Glucose (mg/dL) 146 H Random Glucose 152 H Calcium 10.1 Phosphorus 4.2 Magnesium 2.3 Total Bilirubin 0.8 AST 37 H D ALT 25 Alkaline Phosphatase 109 Total Protein 7.1 Albumin 3.8 Globulin 3.3 Albumin/Globulin Ratio 1.2 Triglycerides 105 D Cholesterol 219 H LDL Cholesterol Direct 115 HDL Cholesterol 80 H Radiology Impressions: Radiology Impressions Head/Neck CTA 04/09/18 18:58 IMPRESSION: 1. No evidence of endoluminal thrombus,occlusion or definite significant stenosis in the intracranial arteries. 2. No evidence of hemodynamically significant stenosis in the internal carotid arteries. 3. Patent bilateral vertebral arteries. 4. 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 5. 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 Dedicated thyroid ultrasound is recommended for further evaluation. 6. Multifocal pneumonia versus metastasis in the visualized lungs. A preliminary report was provided by [facility]. Chest CT 04/09/18 20:54 IMPRESSION: There is a large mass which appears to arise from the right lobe of the thyroid gland which exerts surrounding mass effect and results in compression of the trachea as well as the right brachiocephalic artery, subclavian and common carotid arteries.. This lesion is suspicious for a thyroid malignancy. Thyroid biopsy recommended for further evaluation. Destructive changes of the sternum and manubrium.. There are also destructive changes seen involving the C7, T1 and T2 vertebral body segments.. Findings are consistent with metastatic disease note that there appears to be a mottled appearance of many of the remaining thoracic segments which could be due to diffuse osteopenia however early metastatic deposits should be excluded. . There is also a sclerotic lesion seen within the right posterolateral margin of the T2 segment extending into the pedicle. Sclerotic lesion also present in the T2 spinous process. Bilateral multifocal patchy interstitial and nodular opacities most confluent in the upper lobes bilaterally. Air is present within the anterior aspect of the pulmonary trunk and probably within the right subclavian vein likely due to recent intravenous injection. Chest X-Ray 04/10/18 07:00 IMPRESSION: Multifocal pneumonia. Endotracheal tube terminates in the proximal trachea. Head CT 04/10/18 07:20 IMPRESSION: Developing infarct left cerebellar hemisphere. Probable old median right frontal infarct. Multiple calvarial lytic lesions suspicious for metastatic disease. Chest X-Ray 04/11/18 10:23 IMPRESSION: Interval medial left basilar atelectasis. Diminishing scattered patchy density identified bilaterally. Remaining lung bond clear. Stable cardiomegaly. No pulmonary vascular congestion. Fingerstick Blood Sugar Results: 152
[2018-04-11] MEDS: MethylPREDNISolone 40 mg Vial IVP SCH ×2 (12:07→21:36)
[2018-04-11] MEDS: Potassium Chloride 20 mEq ER Tab PO SCH (14:02)
[2018-04-12] MEDS: Albuterol-Ipratrop 3 mg / 0.5 (3 ml) UD INH SCH ×4 (01:32→20:05)
[2018-04-12] MEDS: Piperacillin/Tazobact 3.375 GM in Sodium Chloride 100 ML IVPB SCH ×4 (04:57→22:51)
[2018-04-12] MEDS: (Novolog) Insulin Aspart, Recombinant 100 u/ml 10 ml vial SC SCH ×4 (06:16→17:48)
[2018-04-12 06:40] LABS: BASO # 0.1 K/uL (0.0-0.2); BASO % 0.4 % (0.0-2.0); HEMOGLOBIN 9.4 g/dL (11.0-16.0); LYMPH # 0.3 K/uL (1.0-4.3); LYMPH % 2.3 % (20.0-40.0); MEAN CELL VOLUME 96.3 fL (81.0-99.0); MEAN CORPUSCULAR HEMOGLOBIN 31.2 pg (27.0-31.0); MEAN CORPUSCULAR HGB CONC 32.4 g/dL (33.0-37.0); MEAN PLATELET VOLUME 9.1 fL (7.2-11.7); MONO # 0.3 K/uL (0.0-0.8); MONO % 2.3 % (0.0-10.0); NEUT # 13.9 K/uL (1.8-7.0); PLATELET COUNT 227 K/uL (130-400); RED CELL DISTRIBUTION WIDTH 14.6 % (11.5-14.5); WHITE BLOOD COUNT 14.7 K/uL (4.8-10.8)
[2018-04-12 06:52] LABS: CALCIUM 10.1 mg/dl (8.6-10.4)
[2018-04-12 09:13] LABS: LYMPHOCYTE 3 % (20-40); MONOCYTE 4 % (0-10); NEUTROPHIL 93 % (50-75); TOTAL CELLS COUNTED 100
[2018-04-12 09:14] LABS: PLATELET ESTIMATE NORMAL (NORMAL)
[2018-04-12 09:15] LABS: ANISOCYTOSIS SLIGHT; LARGE PLATELETS PRESENT; TOXIC GRANULATION PRESENT
[2018-04-12 09:16] LABS: POLYCHROMIC SLIGHT
--- NOTE | 2018-04-12 09:39 | CP.PCM.PN ---
Subjective - Date & Time of Evaluation Date of Evaluation: 04/12/18 Time of Evaluation: 09:10 - Subjective Subjective: chart review BP running high afebrile no unusual event still in ICU Patient seen conversant but slurred speech, moves arms trying to communicate with actions daughter by bedsisde further discussion Objective - Vital Signs/Intake and Output Vital Signs (last 24 hours): Temp Pulse Resp BP Pulse Ox 98.5 F 101 H 15 134/80 94 L 04/12/18 08:00 04/12/18 08:02 04/12/18 08:02 04/12/18 08:02 04/12/18 08:02 Intake and Output: 04/12/18 04/12/18 06:59 18:59 Intake Total 460 0 Output Total 525 145 Balance -65 -145 - Medications Medications: Current Medications Albuterol/Ipratropium (Duoneb 3 Mg/0.5 Mg (3 Ml) Ud) 3 ml INH RQ6 [facility] Last Admin: 04/12/18 07:20 Dose: 3 ml Amlodipine Besylate (Norvasc) 10 mg PO DAILY [facility] Last Admin: 04/11/18 14:05 Dose: 10 mg Aspirin (Aspirin Chewable) 81 mg PO DAILY [facility] Last Admin: 04/11/18 14:02 Dose: 81 mg Clopidogrel Bisulfate (Plavix) 75 mg PO DAILY [facility] Last Admin: 04/11/18 14:02 Dose: 75 mg Dextrose (Dextrose 50% Inj) 0 ml IV STAT PRN; Protocol PRN Reason: Hypoglycemia Protocol Dextrose (Glutose 15) 0 gm PO ONCE PRN; Protocol PRN Reason: Hypoglycemia Protocol Fluconazole (Diflucan) 100 mg PO DAILY [facility]; Protocol Stop: 04/18/18 23:59 Furosemide (Lasix) 20 mg IVP DAILY [facility] Last Admin: 04/11/18 10:01 Dose: 20 mg Glucagon (Glucagen Diagnostic Kit) 0 mg IM STAT PRN; Protocol PRN Reason: Hypoglycemia Protocol Heparin Sodium (Porcine) (Heparin) 5,000 units SC Q8 [facility] Last Admin: 04/12/18 05:00 Dose: 5,000 units Piperacillin Sod/Tazobactam (Sod 3.375 gm/ Sodium Chloride) 100 mls @ 200 mls/hr IVPB Q6H [facility]; Protocol Last Admin: 04/12/18 04:57 Dose: 200 mls/hr Vancomycin HCl 1 gm/ Sodium (Chloride) 250 mls @ 166.7 mls/hr IVPB Q24H [facility]; Protocol Last Admin: 04/12/18 00:02 Dose: 166.7 mls/hr Dextrose (Dextrose 5% In Water 1000 Ml) 1,000 mls @ 0 mls/hr IV .Q0M PRN; Protocol PRN Reason: Hypoglycemia Protocol Insulin Aspart (Novolog) 0 unit SC Q6H [facility]; Protocol Last Admin: 04/12/18 06:16 Dose: Not Given Lisinopril (Zestril) 40 mg PO DAILY [facility] Last Admin: 04/11/18 14:05 Dose: 40 mg Methylprednisolone (Solu-Medrol) 40 mg IVP Q12H [facility] Pantoprazole Sodium (Protonix Inj) 40 mg IVP DAILY [facility] Last Admin: 04/11/18 09:56 Dose: 40 mg Potassium Chloride (K-Dur 20 Meq Er Tab) 20 meq PO DAILY [facility] Last Admin: 04/11/18 14:02 Dose: 20 meq Rosuvastatin Calcium (Crestor) 5 mg PO HS [facility] Last Admin: 04/11/18 21:36 Dose: 5 mg Vitamin A (Vitamin A & D Oint Ud Foilpak) 0.5 ea TOP Q4 PRN PRN Reason: Dry mouth Last Admin: 04/10/18 16:28 Dose: 0.5 ea - Labs Labs: 04/12/18 06:25 04/12/18 06:25 PT 12.2 SECONDS (9.7-12.2) 04/09/18 19:06 INR 1.1 04/09/18 19:06 APTT 28 SECONDS (21-34) D 04/10/18 01:23 - Constitutional Appears: No Acute Distress (w) - Head Exam Head Exam: ATRAUMATIC (neck cannot appreciate mass ), NORMOCEPHALIC - Eye Exam Eye Exam: absent: Nystagmus - ENT Exam ENT Exam: Mucous Membranes Dry - Neck Exam Neck Exam: Full ROM. absent: Tenderness - Respiratory Exam Respiratory Exam: Decreased Breath Sounds, NORMAL BREATHING PATTERN - Cardiovascular Exam Cardiovascular Exam: REGULAR RHYTHM - GI/Abdominal Exam GI & Abdominal Exam: Soft, Normal Bowel Sounds. absent: Distended - Neurological Exam Neurological Exam: Alert, Awake, Oriented x3 (bed ridden, extremeties with spontaneous movement , right lower leg weak ) - Psychiatric Exam Psychiatric exam: Normal Affect, Normal Mood - Skin Skin Exam: Intact, Normal Color Assessment and Plan - Assessment and Plan (Free Text) Assessment: Patient with acute multiple medical problems Respiratory distress- post intubation- improving CHF- on meds CAD post stent CVA with right sided weakness Thyroid mass possible malignancy-with metastasis discussed with Onco, family- need further evaluation and treatment condition not stable Hypertension- adjustment in meds Debility-PT Hypokalemia- on supplementation Gi prophylaxis closer monitoring guarded
[2018-04-12] MEDS ORDERED: MethylPREDNISolone 40 mg Vial IVP SCH (10:00)
[2018-04-12] MEDS: Potassium Chloride 20 mEq ER Tab PO SCH (10:02)
--- NOTE | 2018-04-12 12:06 | CP.PCM.PN ---
Subjective - Date & Time of Evaluation Date of Evaluation: 04/12/18 Time of Evaluation: 12:04 - Subjective Subjective: Pulmonary follow up, Covering Dr Colon The Patient was seen and examined at the bedside, Medical records reviewed, and management issues were discussed and formulated with the house staff. Events reviewed Patient sitting comfortable in bed in no apparent distress Successfully extubated He still complaining of shortness of breath but improved No chest pain, cough Afebrile Adequate saturation 98-100% on 2L nasal cannula Objective - Vital Signs/Intake and Output Vital Signs (last 24 hours): Temp Pulse Resp BP Pulse Ox 98.5 F 94 H 23 153/106 H 100 04/12/18 08:00 04/12/18 11:00 04/12/18 11:00 04/12/18 11:00 04/12/18 11:00 Intake and Output: 04/12/18 04/12/18 06:59 18:59 Intake Total 460 160 Output Total 525 665 Balance -65 -505 - Medications Medications: Current Medications Albuterol/Ipratropium (Duoneb 3 Mg/0.5 Mg (3 Ml) Ud) 3 ml INH RQ6 [facility] Last Admin: 04/12/18 07:20 Dose: 3 ml Amlodipine Besylate (Norvasc) 10 mg PO DAILY [facility] Last Admin: 04/12/18 10:06 Dose: 10 mg Aspirin (Aspirin Chewable) 81 mg PO DAILY [facility] Last Admin: 04/12/18 10:02 Dose: 81 mg Clopidogrel Bisulfate (Plavix) 75 mg PO DAILY [facility] Last Admin: 04/12/18 10:03 Dose: 75 mg Dextrose (Dextrose 50% Inj) 0 ml IV STAT PRN; Protocol PRN Reason: Hypoglycemia Protocol Dextrose (Glutose 15) 0 gm PO ONCE PRN; Protocol PRN Reason: Hypoglycemia Protocol Fluconazole (Diflucan) 100 mg PO DAILY [facility]; Protocol Stop: 04/18/18 23:59 Last Admin: 04/12/18 10:02 Dose: 100 mg Furosemide (Lasix) 20 mg IVP DAILY [facility] Last Admin: 04/12/18 10:01 Dose: 20 mg Glucagon (Glucagen Diagnostic Kit) 0 mg IM STAT PRN; Protocol PRN Reason: Hypoglycemia Protocol Heparin Sodium (Porcine) (Heparin) 5,000 units SC Q8 [facility] Last Admin: 04/12/18 05:00 Dose: 5,000 units Piperacillin Sod/Tazobactam (Sod 3.375 gm/ Sodium Chloride) 100 mls @ 200 mls/hr IVPB Q6H [facility]; Protocol Last Admin: 04/12/18 10:57 Dose: 200 mls/hr Vancomycin HCl 1 gm/ Sodium (Chloride) 250 mls @ 166.7 mls/hr IVPB Q24H [facility]; Protocol Last Admin: 04/12/18 00:02 Dose: 166.7 mls/hr Dextrose (Dextrose 5% In Water 1000 Ml) 1,000 mls @ 0 mls/hr IV .Q0M PRN; Protocol PRN Reason: Hypoglycemia Protocol Potassium Chloride 20 meq/ (Sodium Chloride) 1,010 mls @ 60 mls/hr IV .[id number] [facility] Stop: 04/13/18 02:34 Last Admin: 04/12/18 10:18 Dose: 60 mls/hr Insulin Aspart (Novolog) 0 unit SC Q6H [facility]; Protocol Last Admin: 04/12/18 06:16 Dose: Not Given Lisinopril (Zestril) 40 mg PO DAILY [facility] Last Admin: 04/12/18 10:05 Dose: 40 mg Methylprednisolone (Solu-Medrol) 40 mg IVP Q12H [facility] Last Admin: 04/12/18 10:05 Dose: 40 mg Pantoprazole Sodium (Protonix Inj) 40 mg IVP DAILY [facility] Last Admin: 04/12/18 10:01 Dose: 40 mg Potassium Chloride (K-Dur 20 Meq Er Tab) 20 meq PO DAILY [facility] Last Admin: 04/12/18 10:02 Dose: 20 meq Rosuvastatin Calcium (Crestor) 5 mg PO HS [facility] Last Admin: 04/11/18 21:36 Dose: 5 mg Triamterene/HCTZ (Dyazide 25 Mg-37.5 Mg) 1 cap PO DAILY [facility] Vitamin A (Vitamin A & D Oint Ud Foilpak) 0.5 ea TOP Q4 PRN PRN Reason: Dry mouth Last Admin: 04/10/18 16:28 Dose: 0.5 ea - Labs Labs: 04/12/18 06:25 04/12/18 06:25 PT 12.2 SECONDS (9.7-12.2) 04/09/18 19:06 INR 1.1 04/09/18 19:06 APTT 28 SECONDS (21-34) D 04/10/18 01:23
--- NOTE | 2018-04-12 12:53 | CP.CCUPN ---
CCU Subjective - Physician Review Events Since Last Encounter (Free Text): 04/12/18 12:52 Patient is a 67-year-old female admitted with acute respiratory failure intubated, extubated. Patient is currently using nasal cannula. She has a pathological right clavicular fracture. 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 Patient is also having some hoarseness otherwise. CAT scan of the chest showing evidence of right thyroid gland enlargement, and masslike lesion. On examination: Currently vital signs: AFIB WITH RVR NOTED Afebrile Hoarseness otherwise present. Chest good air entry Regular heart sounds Nontender abdomen 115/min 96% 168/97 Labs reviewed Chest x-ray is clear looking patient is currently on vancomycin, Zosyn and also methylprednisolone. But recent MRI was negative for any metastatic disease which was done a week ago ATRIAL FIB NOTED NOW STARTED ON CARDIZEM DRIP Assessment and recommendation: 67-year-old female with a history of hypertension CVA admitted recently, admitted now with acute respiratory failure likely secondary to stridor, possible thyroid mass, pathological clavicular fracture. Continue the current treatment. Overall prognosis is poor. DVT and GI prophylaxis. Patient may need biopsy of the thyroid gland, also may need nuclear scan pending and will follow the patient CONTROL HR WITH RATE CONTROL MEDS MAY NEED ANTICOAGULATION CCU Objective - Vital Signs / Intake & Output Vital Signs (Last 4 hours): Vital Signs Pulse Resp BP Pulse Ox 04/12/18 12:01 131 H 18 138/80 100 04/12/18 12:00 135 H 26 H 100 04/12/18 11:00 94 H 23 153/106 H 100 04/12/18 10:01 101 H 16 152/96 H 95 04/12/18 10:00 102 H 23 94 L 04/12/18 09:00 100 H 17 153/104 H 98 Intake and Output (Last 8hrs): Intake & Output 04/11/18 04/12/18 04/12/18 22:59 06:59 14:59 Intake Total 10 450 220 Output Total 375 350 865 Balance -365 100 -645 Weight 82 lb 1.6 oz Intake: Intake, IV Amount 450 220 Right Antecubital 450 220 Oral 10 0 0 Output: Urine 375 350 865 Urethral (Walsh) 375 350 865 Other: # Bowel Movements 0 - Physical Exam Head: Positive for: Atraumatic, Normocephalic Pupils: Positive for: PERRL Extroacular Muscles: Positive for: EOMI Conjunctiva: Positive for: Normal Mouth: Positive for: Moist Mucous Membranes Neck: Positive for: Normal Range of Motion Respiratory/Chest: Positive for: Good Air Exchange, Decreased Breath Sounds Abdomen: Positive for: Normal Bowel Sounds Upper Extremity: Positive for: Other (limited movement left upper extremity) Lower Extremity: Positive for: Edema Skin: Positive for: Warm, Normal Color Psychiatric: Positive for: Alert, Oriented x 3 - Medications Active Medications: Active Medications Generic Name Dose Route Start Last Admin Trade Name Freq PRN Reason Stop Dose Admin Albuterol/Ipratropium 3 ml 04/10/18 02:00 04/12/18 07:20 Duoneb 3 Mg/0.5 Mg (3 Ml) Ud INH 3 ml RQ6 [facility] Administration Aspirin 81 mg 04/11/18 10:00 04/12/18 10:02 Aspirin Chewable PO 81 mg DAILY [facility] Administration Clopidogrel Bisulfate 75 mg 04/11/18 10:00 04/12/18 10:03 Plavix PO 75 mg DAILY [facility] Administration Fluconazole 100 mg 04/12/18 10:00 04/12/18 10:02 Diflucan PO 04/18/18 23:59 100 mg DAILY [facility] Administration Protocol Furosemide 20 mg 04/12/18 22:00 Lasix IVP Q12H [facility] Heparin Sodium (Porcine) 5,000 units 04/09/18 23:45 04/12/18 05:00 Heparin SC 5,000 units Q8 [facility] Administration Piperacillin Sod/Tazobactam 100 mls @ 200 mls/hr 04/09/18 23:45 04/12/18 10:57 Sod 3.375 gm/ Sodium Chloride IVPB 200 mls/hr Q6H [facility] Administration Protocol Vancomycin HCl 1 gm/ Sodium 250 mls @ 166.7 mls/hr 04/09/18 23:45 04/12/18 00:02 Chloride IVPB 166.7 mls/hr Q24H [facility] Administration Protocol Potassium Chloride 20 meq/ 1,010 mls @ 60 mls/hr 04/12/18 09:45 04/12/18 10:18 Sodium Chloride IV 04/13/18 02:34 60 mls/hr .[id number] [facility] Administration Diltiazem HCl 125 mg/ Dextrose 125 mls @ 5 mls/hr 04/12/18 12:30 04/12/18 12:50 IV 5 mg/hr .Q24H [facility] 5 mls/hr Administration Protocol 5 MG/HR Insulin Aspart 0 unit 04/12/18 06:00 04/12/18 12:26 Novolog SC Not Given Q6H [facility] Protocol Lisinopril 40 mg 04/11/18 10:00 04/12/18 10:05 Zestril PO 40 mg DAILY [facility] Administration Pantoprazole Sodium 40 mg 04/10/18 10:00 04/12/18 10:01 Protonix Inj IVP 40 mg DAILY [facility] Administration Potassium Chloride 20 meq 04/11/18 10:00 04/12/18 10:02 K-Dur 20 Meq Er Tab PO 20 meq DAILY [facility] Administration Rosuvastatin Calcium 5 mg 04/10/18 22:00 04/11/18 21:36 Crestor PO 5 mg HS [facility] Administration Triamterene/HCTZ 1 cap 04/12/18 10:00 Dyazide 25 Mg-37.5 Mg PO DAILY [facility] Vitamin A 0.5 ea 04/10/18 14:21 04/10/18 16:28 Vitamin A & D Oint Ud Foilpak TOP 0.5 ea Q4 PRN Administration Dry mouth - Patient Studies Lab Studies: Microbiology Studies 04/10/18 01:31 Blood Culture - Preliminary Blood-Venous NO GROWTH AFTER 48 HOURS 04/10/18 01:31 Blood Culture - Preliminary Blood-Venous NO GROWTH AFTER 48 HOURS 04/10/18 00:59 Urine Culture - Final Urine,Catheterized Yeast Species 04/10/18 00:59 MRSA Culture (Admit) - Final Nose MRSA NOT DETECTED Lab Studies 04/12/18 04/12/18 04/12/18 Range/Units 12:12 06:25 06:25 WBC 14.7 H (4.8-10.8) K/uL RBC 3.00 L (3.80-5.20) Mil/uL Hgb 9.4 L (11.0-16.0) g/dL Hct 28.9 L (34.0-47.0) % MCV 96.3 (81.0-99.0) fL MCH 31.2 H (27.0-31.0) pg MCHC 32.4 L (33.0-37.0) g/dL RDW 14.6 H (11.5-14.5) % Plt Count 227 (130-400) K/uL MPV 9.1 (7.2-11.7) fL Neut % (Auto) 95.0 H (50.0-75.0) % Lymph % (Auto) 2.3 L (20.0-40.0) % [place] % (Auto) 2.3 (0.0-10.0) % Eos % (Auto) 0.0 (0.0-4.0) % Baso % (Auto) 0.4 (0.0-2.0) % Neut # (Auto) 13.9 H (1.8-7.0) K/uL Lymph # (Auto) 0.3 L (1.0-4.3) K/uL [place] # (Auto) 0.3 (0.0-0.8) K/uL Eos # (Auto) 0.0 (0.0-0.7) K/uL Baso # (Auto) 0.1 (0.0-0.2) K/uL Neutrophils % (Manual) 93 H (50-75) % Lymphocytes % (Manual) 3 L (20-40) % Monocytes % (Manual) 4 (0-10) % Toxic Granulation Present Platelet Estimate Normal (NORMAL) Large Platelets Present Polychromasia Slight Anisocytosis (manual) Slight Sodium 149 H (132-148) mmol/L Potassium 3.2 L (3.6-5.2) mmol/L Chloride 114 H (98-107) mmol/L Carbon Dioxide 29 (22-30) mmol/L Anion Gap 9 L (10-20) BUN 48 H (7-17) mg/dL Creatinine 1.1 (0.7-1.2) mg/dL Est GFR ( Amer) 60 Est GFR (Non-Af Amer) 49 POC Glucose (mg/dL) 167 H (65-110) mg/dL Random Glucose 146 H (65-105) mg/dL Calcium 10.1 (8.6-10.4) mg/dl 04/12/18 04/12/18 04/11/18 Range/Units 05:33 05:29 21:29 WBC (4.8-10.8) K/uL RBC (3.80-5.20) Mil/uL Hgb (11.0-16.0) g/dL Hct (34.0-47.0) % MCV (81.0-99.0) fL MCH (27.0-31.0) pg MCHC (33.0-37.0) g/dL RDW (11.5-14.5) % Plt Count (130-400) K/uL MPV (7.2-11.7) fL Neut % (Auto) (50.0-75.0) % Lymph % (Auto) (20.0-40.0) % [place] % (Auto) (0.0-10.0) % Eos % (Auto) (0.0-4.0) % Baso % (Auto) (0.0-2.0) % Neut # (Auto) (1.8-7.0) K/uL Lymph # (Auto) (1.0-4.3) K/uL [place] # (Auto) (0.0-0.8) K/uL Eos # (Auto) (0.0-0.7) K/uL Baso # (Auto) (0.0-0.2) K/uL Neutrophils % (Manual) (50-75) % Lymphocytes % (Manual) (20-40) % Monocytes % (Manual) (0-10) % Toxic Granulation Platelet Estimate (NORMAL) Large Platelets Polychromasia Anisocytosis (manual) Sodium (132-148) mmol/L Potassium (3.6-5.2) mmol/L Chloride (98-107) mmol/L Carbon Dioxide (22-30) mmol/L Anion Gap (10-20) BUN (7-17) mg/dL Creatinine (0.7-1.2) mg/dL Est GFR ( Amer) Est GFR (Non-Af Amer) POC Glucose (mg/dL) 138 H 29 L* 132 H (65-110) mg/dL Random Glucose (65-105) mg/dL Calcium (8.6-10.4) mg/dl 04/11/18 Range/Units 16:03 WBC (4.8-10.8) K/uL RBC (3.80-5.20) Mil/uL Hgb (11.0-16.0) g/dL Hct (34.0-47.0) % MCV (81.0-99.0) fL MCH (27.0-31.0) pg MCHC (33.0-37.0) g/dL RDW (11.5-14.5) % Plt Count (130-400) K/uL MPV (7.2-11.7) fL Neut % (Auto) (50.0-75.0) % Lymph % (Auto) (20.0-40.0) % [place] % (Auto) (0.0-10.0) % Eos % (Auto) (0.0-4.0) % Baso % (Auto) (0.0-2.0) % Neut # (Auto) (1.8-7.0) K/uL Lymph # (Auto) (1.0-4.3) K/uL [place] # (Auto) (0.0-0.8) K/uL Eos # (Auto) (0.0-0.7) K/uL Baso # (Auto) (0.0-0.2) K/uL Neutrophils % (Manual) (50-75) % Lymphocytes % (Manual) (20-40) % Monocytes % (Manual) (0-10) % Toxic Granulation Platelet Estimate (NORMAL) Large Platelets Polychromasia Anisocytosis (manual) Sodium (132-148) mmol/L Potassium (3.6-5.2) mmol/L Chloride (98-107) mmol/L Carbon Dioxide (22-30) mmol/L Anion Gap (10-20) BUN (7-17) mg/dL Creatinine (0.7-1.2) mg/dL Est GFR ( Amer) Est GFR (Non-Af Amer) POC Glucose (mg/dL) 194 H (65-110) mg/dL Random Glucose (65-105) mg/dL Calcium (8.6-10.4) mg/dl Laboratory Results - last 24 hr 04/11/18 04/11/18 04/12/18 16:03 21:29 05:29 WBC RBC Hgb Hct MCV MCH MCHC RDW Plt Count MPV Neut % (Auto) Lymph % (Auto) [place] % (Auto) Eos % (Auto) Baso % (Auto) Neut # (Auto) Lymph # (Auto) [place] # (Auto) Eos # (Auto) Baso # (Auto) Neutrophils % (Manual) Lymphocytes % (Manual) Monocytes % (Manual) Toxic Granulation Platelet Estimate Large Platelets Polychromasia Anisocytosis (manual) Sodium Potassium Chloride Carbon Dioxide Anion Gap BUN Creatinine Est GFR ( Amer) Est GFR (Non-Af Amer) POC Glucose (mg/dL) 194 H 132 H 29 L* Random Glucose Calcium 04/12/18 04/12/18 04/12/18 05:33 06:25 06:25 WBC 14.7 H RBC 3.00 L Hgb 9.4 L Hct 28.9 L MCV 96.3 MCH 31.2 H MCHC 32.4 L RDW 14.6 H Plt Count 227 MPV 9.1 Neut % (Auto) 95.0 H Lymph % (Auto) 2.3 L [place] % (Auto) 2.3 Eos % (Auto) 0.0 Baso % (Auto) 0.4 Neut # (Auto) 13.9 H Lymph # (Auto) 0.3 L [place] # (Auto) 0.3 Eos # (Auto) 0.0 Baso # (Auto) 0.1 Neutrophils % (Manual) 93 H Lymphocytes % (Manual) 3 L Monocytes % (Manual) 4 Toxic Granulation Present Platelet Estimate Normal Large Platelets Present Polychromasia Slight Anisocytosis (manual) Slight Sodium 149 H Potassium 3.2 L Chloride 114 H Carbon Dioxide 29 Anion Gap 9 L BUN 48 H Creatinine 1.1 Est GFR ( Amer) 60 Est GFR (Non-Af Amer) 49 POC Glucose (mg/dL) 138 H Random Glucose 146 H Calcium 10.1 04/12/18 12:12 WBC RBC Hgb Hct MCV MCH MCHC RDW Plt Count MPV Neut % (Auto) Lymph % (Auto) [place] % (Auto) Eos % (Auto) Baso % (Auto) Neut # (Auto) Lymph # (Auto) [place] # (Auto) Eos # (Auto) Baso # (Auto) Neutrophils % (Manual) Lymphocytes % (Manual) Monocytes % (Manual) Toxic Granulation Platelet Estimate Large Platelets Polychromasia Anisocytosis (manual) Sodium Potassium Chloride Carbon Dioxide Anion Gap BUN Creatinine Est GFR ( Amer) Est GFR (Non-Af Amer) POC Glucose (mg/dL) 167 H Random Glucose Calcium Fingerstick Blood Sugar Results: 138
[2018-04-12] MEDS ORDERED: Magnesium Sulfate 1 gm in D5W 1 GM/100 ML BAG IVPB ONE (12:54)
[2018-04-12] MEDS: hydroCHLOROthiazide-Triamterene 25 mg-37.5 mg Cap UD PO SCH (13:36)
--- NOTE | 2018-04-12 14:56 | CP.PCM.PN ---
Subjective - Date & Time of Evaluation Date of Evaluation: 04/11/18 Time of Evaluation: 20:25 - Subjective Subjective: Patient seen and evaluated Extubated Objective - Vital Signs/Intake and Output Vital Signs (last 24 hours): Temp Pulse Resp BP Pulse Ox 98 F 67 16 146/81 100 04/11/18 04:00 04/11/18 07:04 04/11/18 07:04 04/11/18 07:04 04/11/18 07:04 Intake and Output: 04/11/18 04/11/18 06:59 18:59 Intake Total 450 0 Output Total 1550 125 Balance -1100 -125 - Medications Medications: Current Medications Albuterol/Ipratropium (Duoneb 3 Mg/0.5 Mg (3 Ml) Ud) 3 ml INH RQ6 [facility] Last Admin: 04/11/18 07:41 Dose: 3 ml Amlodipine Besylate (Norvasc) 10 mg PO DAILY [facility] Aspirin (Aspirin Chewable) 81 mg PO DAILY [facility] Clopidogrel Bisulfate (Plavix) 75 mg PO DAILY [facility] Dextrose (Dextrose 50% Inj) 0 ml IV STAT PRN; Protocol PRN Reason: Hypoglycemia Protocol Dextrose (Glutose 15) 0 gm PO ONCE PRN; Protocol PRN Reason: Hypoglycemia Protocol Glucagon (Glucagen Diagnostic Kit) 0 mg IM STAT PRN; Protocol PRN Reason: Hypoglycemia Protocol Heparin Sodium (Porcine) (Heparin) 5,000 units SC Q8 [facility] Last Admin: 04/11/18 05:13 Dose: 5,000 units Piperacillin Sod/Tazobactam (Sod 3.375 gm/ Sodium Chloride) 100 mls @ 200 mls/hr IVPB Q6H [facility]; Protocol Last Admin: 04/11/18 05:14 Dose: 200 mls/hr Vancomycin HCl 1 gm/ Sodium (Chloride) 250 mls @ 166.7 mls/hr IVPB Q24H [facility]; Protocol Last Admin: 04/11/18 00:22 Dose: 166.7 mls/hr Dextrose (Dextrose 5% In Water 1000 Ml) 1,000 mls @ 0 mls/hr IV .Q0M PRN; Protocol PRN Reason: Hypoglycemia Protocol Insulin Aspart (Novolog) 0 unit SC Q6H [facility]; Protocol Last Admin: 04/11/18 08:03 Dose: Not Given Lisinopril (Zestril) 40 mg PO DAILY [facility] Methylprednisolone (Solu-Medrol) 40 mg IVP Q12H [facility] Last Admin: 04/10/18 22:30 Dose: Not Given Pantoprazole Sodium (Protonix Inj) 40 mg IVP DAILY [facility] Last Admin: 04/10/18 11:00 Dose: 40 mg Potassium Chloride (K-Dur 20 Meq Er Tab) 20 meq PO DAILY [facility] Rosuvastatin Calcium (Crestor) 5 mg PO HS [facility] Last Admin: 04/10/18 23:37 Dose: Not Given Vitamin A (Vitamin A & D Oint Ud Foilpak) 0.5 ea TOP Q4 PRN PRN Reason: Dry mouth Last Admin: 04/10/18 16:28 Dose: 0.5 ea - Labs Labs: 04/11/18 06:40 04/11/18 06:40 PT 12.2 SECONDS (9.7-12.2) 04/09/18 19:06 INR 1.1 04/09/18 19:06 APTT 28 SECONDS (21-34) D 04/10/18 01:23 - Constitutional Appears: No Acute Distress - Head Exam Head Exam: ATRAUMATIC, NORMOCEPHALIC - ENT Exam ENT Exam: Mucous Membranes Dry - Neck Exam Neck Exam: Full ROM. absent: Tenderness - Respiratory Exam Respiratory Exam: Decreased Breath Sounds (with slight congestion but improving sounds ), NORMAL BREATHING PATTERN - Cardiovascular Exam Cardiovascular Exam: REGULAR RHYTHM - GI/Abdominal Exam GI & Abdominal Exam: Soft, Normal Bowel Sounds. absent: Distended, Tenderness - Back Exam Back Exam: Full ROM - Neurological Exam Neurological Exam: Alert, Awake, Oriented x3 (weak righ side, slurred speech weak right corner mouth,) - Psychiatric Exam Psychiatric exam: Normal Affect, Normal Mood - Skin Skin Exam: Intact, Normal Color Assessment and Plan - Assessment and Plan (Free Text) Assessment: Patient with history of Hypertension with recent CVA-with right sided weakness CAD post stent on plavix aspirin PT Hypertension and Anxiety -adjust meds accordingly COPD/Emphysema admitted for Respiratory failure- with CXR_CHF, intubated in the field right clavicular fracture -follow up ortho extubated newCVA- further Neuro/cardio evaluation ongoing PETER to evaluate the cause of CVA Objective - Vital Signs/Intake and Output Vital Signs (last 24 hours): Temp Pulse Resp BP Pulse Ox 98.1 F 99 H 25 H 134/91 H 98 04/12/18 12:00 04/12/18 14:01 04/12/18 14:01 04/12/18 14:01 04/12/18 14:01 Intake and Output: 04/12/18 04/12/18 06:59 18:59 Intake Total 460 390 Output Total 525 1765 Balance -65 -1375 - Medications Medications: Current Medications Albuterol/Ipratropium (Duoneb 3 Mg/0.5 Mg (3 Ml) Ud) 3 ml INH RQ6 RODRIGO Last Admin: 04/12/18 13:52 Dose: 3 ml Apixaban (Eliquis) 2.5 mg PO BID RODRIGO Aspirin (Aspirin Chewable) 81 mg PO DAILY RODRIGO Last Admin: 04/12/18 10:02 Dose: 81 mg Fluconazole (Diflucan) 100 mg PO DAILY RODRIGO; Protocol Stop: 04/18/18 23:59 Last Admin: 04/12/18 10:02 Dose: 100 mg Furosemide (Lasix) 20 mg IVP Q12H RODRIGO Piperacillin Sod/Tazobactam (Sod 3.375 gm/ Sodium Chloride) 100 mls @ 200 mls/hr IVPB Q6H RODRIGO; Protocol Last Admin: 04/12/18 10:57 Dose: 200 mls/hr Vancomycin HCl 1 gm/ Sodium (Chloride) 250 mls @ 166.7 mls/hr IVPB Q24H RODRIGO; Protocol Last Admin: 04/12/18 00:02 Dose: 166.7 mls/hr Diltiazem HCl 125 mg/ Dextrose 125 mls @ 5 mls/hr IV .Q24H RODRIGO; Protocol Last Admin: 04/12/18 12:50 Dose: 5 mg/hr, 5 mls/hr Insulin Aspart (Novolog) 0 unit SC Q6H RODRIGO; Protocol Lisinopril (Zestril) 40 mg PO DAILY RODRIGO Last Admin: 04/12/18 10:05 Dose: 40 mg Methylprednisolone (Solu-Medrol) 40 mg IVP DAILY RODRIGO Pantoprazole Sodium (Protonix Inj) 40 mg IVP DAILY [facility] Last Admin: 04/12/18 10:01 Dose: 40 mg Potassium Chloride (K-Dur 20 Meq Er Tab) 20 meq PO DAILY RODRIGO Last Admin: 04/12/18 10:02 Dose: 20 meq Rosuvastatin Calcium (Crestor) 5 mg PO HS [facility] Last Admin: 04/11/18 21:36 Dose: 5 mg Triamterene/HCTZ (Dyazide 25 Mg-37.5 Mg) 1 cap PO DAILY RODRIGO Last Admin: 04/12/18 13:36 Dose: 1 cap Vitamin A (Vitamin A & D Oint Ud Foilpak) 0.5 ea TOP Q4 PRN PRN Reason: Dry mouth Last Admin: 04/10/18 16:28 Dose: 0.5 ea - Labs Labs: 04/12/18 06:25 04/12/18 06:25 PT 12.2 SECONDS (9.7-12.2) 04/09/18 19:06 INR 1.1 04/09/18 19:06 APTT 28 SECONDS (21-34) D 04/10/18 01:23
--- NOTE | 2018-04-12 14:58 | CP.PCM.PN ---
Subjective - Date & Time of Evaluation Date of Evaluation: 04/12/18 Time of Evaluation: 14:56 - Subjective Subjective: Patient seen and evaluated Went into Rapid a Fib Cardizem drip started Physical Examination - Constitutional Appears: No Acute Distress - Head Exam Head Exam: ATRAUMATIC, NORMOCEPHALIC - ENT Exam ENT Exam: Mucous Membranes Dry - Neck Exam Neck Exam: Full ROM. absent: Tenderness - Respiratory Exam Respiratory Exam: Decreased Breath Sounds (with slight congestion but improving sounds ), NORMAL BREATHING PATTERN - Cardiovascular Exam Cardiovascular Exam: REGULAR RHYTHM - GI/Abdominal Exam GI & Abdominal Exam: Soft, Normal Bowel Sounds. absent: Distended, Tenderness - Back Exam Back Exam: Full ROM - Neurological Exam Neurological Exam: Alert, Awake, Oriented x3 (weak righ side, slurred speech weak right corner mouth,) - Psychiatric Exam Psychiatric exam: Normal Affect, Normal Mood - Skin Skin Exam: Intact, Normal Color Assessment and Plan - Assessment and Plan (Free Text) Assessment: Patient with history of Hypertension with recent CVA-with right sided weakness CAD post stent on plavix aspirin PT Hypertension and Anxiety -adjust meds accordingly COPD/Emphysema admitted for Respiratory failure- with CXR_CHF, intubated in the field right clavicular fracture -follow up ortho extubated newCVA- further Neuro/cardio evaluation ongoing Patient with A Fib On cardizem drip Will start Eliquis 2.5 mg po bid Continue ASA 81 daily Stop Plavix Since etiology for CVA found ( A Fib) will cancel the PETER Objective - Vital Signs/Intake and Output Vital Signs (last 24 hours): Temp Pulse Resp BP Pulse Ox 98.1 F 99 H 25 H 134/91 H 98 04/12/18 12:00 04/12/18 14:01 04/12/18 14:01 04/12/18 14:01 04/12/18 14:01 Intake and Output: 04/12/18 04/12/18 06:59 18:59 Intake Total 460 390 Output Total 155 1005 Balance -65 -1375 - Medications Medications: Current Medications Albuterol/Ipratropium (Duoneb 3 Mg/0.5 Mg (3 Ml) Ud) 3 ml INH RQ6 [facility] Last Admin: 04/12/18 13:52 Dose: 3 ml Apixaban (Eliquis) 2.5 mg PO BID [facility] Aspirin (Aspirin Chewable) 81 mg PO DAILY [facility] Last Admin: 04/12/18 10:02 Dose: 81 mg Fluconazole (Diflucan) 100 mg PO DAILY [facility]; Protocol Stop: 04/18/18 23:59 Last Admin: 04/12/18 10:02 Dose: 100 mg Furosemide (Lasix) 20 mg IVP Q12H [facility] Piperacillin Sod/Tazobactam (Sod 3.375 gm/ Sodium Chloride) 100 mls @ 200 mls/hr IVPB Q6H [facility]; Protocol Last Admin: 04/12/18 10:57 Dose: 200 mls/hr Vancomycin HCl 1 gm/ Sodium (Chloride) 250 mls @ 166.7 mls/hr IVPB Q24H [facility]; Protocol Last Admin: 04/12/18 00:02 Dose: 166.7 mls/hr Diltiazem HCl 125 mg/ Dextrose 125 mls @ 5 mls/hr IV .Q24H [facility]; Protocol Last Admin: 04/12/18 12:50 Dose: 5 mg/hr, 5 mls/hr Insulin Aspart (Novolog) 0 unit SC Q6H [facility]; Protocol Lisinopril (Zestril) 40 mg PO DAILY [facility] Last Admin: 04/12/18 10:05 Dose: 40 mg Methylprednisolone (Solu-Medrol) 40 mg IVP DAILY [facility] Pantoprazole Sodium (Protonix Inj) 40 mg IVP DAILY [facility] Last Admin: 04/12/18 10:01 Dose: 40 mg Potassium Chloride (K-Dur 20 Meq Er Tab) 20 meq PO DAILY [facility] Last Admin: 04/12/18 10:02 Dose: 20 meq Rosuvastatin Calcium (Crestor) 5 mg PO HS [facility] Last Admin: 04/11/18 21:36 Dose: 5 mg Triamterene/HCTZ (Dyazide 25 Mg-37.5 Mg) 1 cap PO DAILY [facility] Last Admin: 04/12/18 13:36 Dose: 1 cap Vitamin A (Vitamin A & D Oint Ud Foilpak) 0.5 ea TOP Q4 PRN PRN Reason: Dry mouth Last Admin: 04/10/18 16:28 Dose: 0.5 ea - Labs Labs: 04/12/18 06:25 04/12/18 06:25 PT 12.2 SECONDS (9.7-12.2) 04/09/18 19:06 INR 1.1 04/09/18 19:06 APTT 28 SECONDS (21-34) D 04/10/18 01:23
[2018-04-12] MEDS ORDERED: Potassium Chloride 20 mEq ER Tab PO ONE (16:12)
--- NOTE | 2018-04-12 18:49 | PN ---
DATE: 04/12/2018 TIME OF EVALUATION: 12:10 p.m. The patient is examined in the presence of her daughter. NEUROLOGICAL PROBLEM: Multiple artificial ischemic changes, probably a cardiogenic source. PHYSICAL EXAMINATION: VITAL SIGNS: On monitoring, the patient shows atrial flutter with paroxysmal atrial fibrillation. Blood pressure 115/75, mean artery pressure of 90, respiratory rate 18, temperature afebrile with pulse rate 123. GENERAL: The patient is awake, arousable, follows one-step command. Significant right and left confusion. Right homonymous hemianopsia. Moves her right arm. There is a truncal ataxia with [id number] dysmetria and leg ataxia also noted. Her condition has had a clinical neurological examination consistent with the lower brainstem dysfunction consistent with CT finding of cerebellar infarct. Her artificial ischemic changes are probably related to her cardiac source as well. The patient's condition has been discussed with Dr. Amaya also. PLAN OF TREATMENT: We would like to switch aspirin and Plavix to Eliquis 5 mg twice a day. The patient does not need a transesophageal echocardiogram for now. The patient needed a DVT prophylaxis and continue the present management. Andrew Casrto MD
[2018-04-13] MEDS: Albuterol-Ipratrop 3 mg / 0.5 (3 ml) UD INH SCH ×5 (01:10→19:09)
--- NOTE | 2018-04-13 01:22 | CON ---
DATE: 04/12/2018 ENDOCRINOLOGY CONSULT LOCATION: ICU, room 14A. HISTORY OF PRESENT ILLNESS: This is a 67-year-old female with recent acute CVA, transferred here from the rehab facility because of altered mental status and supervening acute respiratory failure, and also admitted twice here for closer hemodynamic monitoring and is also being referred now for endocrine evaluation of an incidental finding of a thyroid nodule by CAT scan of the chest as noted. PAST MEDICAL HISTORY: History of an acute CVA with residual left hemiparesis and slurred speech, and was transferred to the rehab facility for physical therapy as noted. History of hypertension and dyslipidemia, history of chronic obstructive lung disease with recent exacerbation of the same, history of coronary artery disease with previous coronary stent placement, history of an acute CVA as noted with residual left hemiparesis and slurred speech as noted. FAMILY HISTORY: Positive for hypertension and heart disease. SOCIAL HISTORY: The patient has supportive family. No known substance use. REVIEW OF SYSTEMS: Not possible at this time as the patient has expressive aphasia, but the chart has been reviewed in detail, and the consultants notes are managed and reviewed in detail. No recent visual changes. No any complaints of headaches, but admits to generalized body weakness with easy fatigability and tiredness with sudden onset of some lightheadedness, worse on the day of admission. No chest pains or palpitations. Her oral intake has been variable with nausea and dyspepsia. No recent aspirations of bowel or urinary patterns. She is currently n.p.o. at this time with failed swallowing evaluation. PHYSICAL EXAMINATION: GENERAL: This is an average-built female, in no apparent distress. VITAL SIGNS: Blood pressure of 140/80, pulse of 70 beats per minute and regular, temperature 98, respirations 20. Height is 5 feet 3 inches, weight is 82 pounds. HEENT: Head is normocephalic. Eyes anicteric with pink conjunctivae. Funduscopy not possible at this time. Ears, nose, and throat otherwise normal. NECK: Supple. Thyroid gland is normal in size. No carotid bruits or cervical adenopathy. CARDIOPULMONARY: Some adynamic precordium. S1 and S2 are rapid and regular. LUNGS: Clear to auscultation. ABDOMEN: Flat and soft with positive bowel sounds. EXTREMITIES: No peripheral edema. Pulses are +2 bilaterally. LABORATORY DATA: Chemistry showed a BUN of 48, sodium 149, potassium 3.2, chloride 114, CO2 of 29, glucose 146, and creatinine 1.1. Her A1c is 5.4%. The CAT scan of the chest showed a large mass in the right thyroid lobe with calcifications noted otherwise. There is also evidence of tracheal compression. Moreover, there is also evidence of possible metastatic disease in the brain, and the cervical and thoracic spine as noted. CAT scan of the head showed an infarct in the left cerebellar hemisphere with an old right frontal infarction and multiple calvarial lytic lesions suspicious for metastatic disease. ASSESSMENT: This is a 67-year-old female with acute cerebrovascular disease with expressive aphasia, presenting here with acute respiratory failure and has since been extubated and closely is followed in the intensive care unit for hemodynamic monitoring. She also has an incidental finding of a multinodular goiter with a dominant right thyroid nodule with calcifications as noticed. Thyroid malignancy has to be excluded at this time. PLAN OF MANAGEMENT: We will obtain a thyroid ultrasound to fully delineate the thyroid lobe dimensions and would also highly recommend a fine needle aspiration biopsy of dominant right thyroid nodule as noted. We also obtained a thyroglobulin panel and a thyroid peroxidase antibody to confirm and immunity. A comprehensive thyroid function study has been ordered for tomorrow to ascertain the biochemical thyroid status accordingly. We will follow and advise accordingly. Akiko Erazo MD
--- NOTE | 2018-04-13 04:35 | CON ---
DATE: 04/12/2018 REASON FOR CONSULTATION: Right clavicle fracture. HISTORY OF PRESENT ILLNESS: A 67-year-old female who was admitted to [facility] ICU for altered mental status. The patient had an unwitnessed fall, underwent a chest x-ray which confirmed right clavicle fracture. I was consulted for further recommendations. PHYSICAL EXAMINATION: RIGHT CLAVICLE: There is no skin tenting. Skin is intact. The patient is tender to palpation over the mid shaft clavicle. Right shoulder forward flexion is 90 degrees, reduction 90 degrees, limited due to pain. Neurovascularly intact. Good capillary refills. Good distal pulses. Muscle strength of the biceps, triceps, wrist extensors, wrist flexors, and hamstrings. LEFT SHOULDER: Normal shoulder range of motion. No stability. No bony tenderness. LABORATORY DATA: X-rays of the clavicle were seen and viewed showed minimally displaced midshaft clavicle fracture. ASSESSMENT: Right clavicle fracture. PLAN: I discussed the above findings with the patient and her . I recommended conservative nonoperative treatment with a sling for comfort. I expected clavicle fracture to heal nonoperatively. The patient will follow up and remain in four weeks for re-evaluation and x-rays. Eduardo Vogel MD MTDD
[2018-04-13 06:20] LABS: BASO % 0.2 % (0.0-2.0); HEMOGLOBIN 10.8 g/dL (11.0-16.0); LYMPH # 0.5 K/uL (1.0-4.3); LYMPH % 2.7 % (20.0-40.0); MEAN CORPUSCULAR HEMOGLOBIN 31.5 pg (27.0-31.0); MEAN CORPUSCULAR HGB CONC 32.8 g/dL (33.0-37.0); MEAN PLATELET VOLUME 9.4 fL (7.2-11.7); MONO # 1.1 K/uL (0.0-0.8); MONO % 6.2 % (0.0-10.0); NEUT # 16.1 K/uL (1.8-7.0); NEUT % 90.9 % (50.0-75.0); NRBC % 0.1 % (0.0-2.0); PLATELET COUNT 264 K/uL (130-400); RBC 3.44 Mil/uL (3.80-5.20); RED CELL DISTRIBUTION WIDTH 14.1 % (11.5-14.5); WHITE BLOOD COUNT 17.7 K/uL (4.8-10.8)
[2018-04-13] MEDS: Piperacillin/Tazobact 3.375 GM in Sodium Chloride 100 ML IVPB SCH (06:27)
[2018-04-13] MEDS: (Novolog) Insulin Aspart, Recombinant 100 u/ml 10 ml vial SC SCH ×4 (06:28→17:55)
[2018-04-13 06:36] LABS: CALCIUM 11.1 mg/dl (8.6-10.4)
[2018-04-13 08:17] LABS: BANDS 4 % (0-2); LYMPHOCYTE 4 % (20-40); MONOCYTE 11 % (0-10); NEUTROPHIL 80 % (50-75); REACTIVE LYMPHOCYTES 1 % (0-0); TOTAL CELLS COUNTED 100
[2018-04-13 08:18] LABS: PLATELET ESTIMATE NORMAL (NORMAL)
--- NOTE | 2018-04-13 08:22 | CP.PCM.PN ---
Subjective - Date & Time of Evaluation Date of Evaluation: 04/13/18 Time of Evaluation: 08:15 - Subjective Subjective: chart review notes reviewed- episode of patient's restessnes episode of very high BP placed on cardizem drip new onset Afib laboratory-still low Potassium-on supplementation patient seen, in bed, and nephew by yoel further discussionof condition is going for further test is conversant trying to say something- but incomprehensible currently no complaints Objective - Vital Signs/Intake and Output Vital Signs (last 24 hours): Temp Pulse Resp BP Pulse Ox 98.9 F 95 H 23 120/101 H 98 04/13/18 04:00 04/13/18 08:00 04/13/18 08:00 04/13/18 07:01 04/13/18 07:01 Intake and Output: 04/13/18 04/13/18 06:59 18:59 Intake Total 339 3 Output Total 795 0 Balance -456 3 - Medications Medications: Current Medications Albuterol/Ipratropium (Duoneb 3 Mg/0.5 Mg (3 Ml) Ud) 3 ml INH RQ6 [facility] Last Admin: 04/13/18 07:20 Dose: 3 ml Apixaban (Eliquis) 2.5 mg PO BID [facility] Last Admin: 04/12/18 17:07 Dose: 2.5 mg Aspirin (Aspirin Chewable) 81 mg PO DAILY [facility] Last Admin: 04/12/18 10:02 Dose: 81 mg Fluconazole (Diflucan) 100 mg PO DAILY [facility]; Protocol Stop: 04/18/18 23:59 Last Admin: 04/12/18 10:02 Dose: 100 mg Furosemide (Lasix) 20 mg IVP Q12H [facility] Last Admin: 04/12/18 22:51 Dose: 20 mg Piperacillin Sod/Tazobactam (Sod 3.375 gm/ Sodium Chloride) 100 mls @ 200 mls/hr IVPB Q6H [facility]; Protocol Last Admin: 04/13/18 06:27 Dose: 200 mls/hr Vancomycin HCl 1 gm/ Sodium (Chloride) 250 mls @ 166.7 mls/hr IVPB Q24H [facility]; Protocol Last Admin: 04/13/18 00:09 Dose: 166.7 mls/hr Diltiazem HCl 125 mg/ Dextrose 125 mls @ 5 mls/hr IV .Q24H [facility]; Protocol Last Titration: 04/13/18 05:15 Dose: 3 mg/hr, 3 mls/hr Insulin Aspart (Novolog) 0 unit SC Q6H [facility]; Protocol Last Admin: 04/13/18 06:28 Dose: Not Given Lisinopril (Zestril) 40 mg PO DAILY [facility] Last Admin: 04/12/18 10:05 Dose: 40 mg Methylprednisolone (Solu-Medrol) 40 mg IVP DAILY [facility] Pantoprazole Sodium (Protonix Inj) 40 mg IVP DAILY [facility] Last Admin: 04/12/18 10:01 Dose: 40 mg Potassium Chloride (K-Dur 20 Meq Er Tab) 20 meq PO DAILY [facility] Last Admin: 04/12/18 10:02 Dose: 20 meq Rosuvastatin Calcium (Crestor) 5 mg PO HS [facility] Last Admin: 04/12/18 22:50 Dose: 5 mg Triamterene/HCTZ (Dyazide 25 Mg-37.5 Mg) 1 cap PO DAILY [facility] Last Admin: 04/12/18 13:36 Dose: 1 cap Vitamin A (Vitamin A & D Oint Ud Foilpak) 0.5 ea TOP Q4 PRN PRN Reason: Dry mouth Last Admin: 04/10/18 16:28 Dose: 0.5 ea - Labs Labs: 04/13/18 06:11 04/13/18 06:09 PT 12.2 SECONDS (9.7-12.2) 04/09/18 19:06 INR 1.1 04/09/18 19:06 APTT 28 SECONDS (21-34) D 04/10/18 01:23 - Constitutional Appears: No Acute Distress - Head Exam Head Exam: ATRAUMATIC, NORMOCEPHALIC - Eye Exam Eye Exam: absent: Nystagmus - ENT Exam ENT Exam: Mucous Membranes Dry - Neck Exam Neck Exam: Full ROM. absent: Tenderness - Respiratory Exam Respiratory Exam: Decreased Breath Sounds (mild congestion no wheezing), NORMAL BREATHING PATTERN - Cardiovascular Exam Cardiovascular Exam: REGULAR RHYTHM - GI/Abdominal Exam GI & Abdominal Exam: Soft, Normal Bowel Sounds. absent: Tenderness - Extremities Exam Extremities Exam: Full ROM. absent: Joint Swelling, Pedal Edema, Tenderness - Neurological Exam Neurological Exam: Alert, Awake, Oriented x3 (right sided weakness) - Psychiatric Exam Psychiatric exam: Normal Affect, Normal Mood - Skin Skin Exam: Intact, Normal Color Assessment and Plan - Assessment and Plan (Free Text) Assessment: Patient with PMH hypertension being treated for acute debelopment of new onset medical problems Afib- as per cardio/ICU CHF- post respiratory failure-currently improving Hypertension- up and down- meds adjustment CVA- with right sided weakness CAD post stent Thyroid nodule Metastaic lesion to the bones Oncology consultation PT accordingly on Eliquis, aspirin GI prophylaxis under ICU care
[2018-04-13] MEDS: Potassium Chloride 20 mEq ER Tab PO SCH (09:21)
[2018-04-13] MEDS: MethylPREDNISolone 40 mg Vial IVP SCH (09:22)
--- NOTE | 2018-04-13 11:02 | US ---
Thyroid ultrasound HISTORY: Multinodular goiter. Comparison: None available. Technique: Real-time sonography was performed through the thyroid. Findings: Right lobe: Enlarged heterogeneous thyroid gland measuring 6.9 x 3.9 x 2.8 centimeters. Increased flow. Complex heterogeneous upper pole nodule measuring 1.6 x 1.5 x 1.4 centimeters containing internal echogenic calcifications. Mid to lower pole heterogeneous complex nodule measuring 4.1 x 4.0 x 4.0 centimeters. Thyroid isthmus measures 3 millimeters. Heterogeneous echotexture. Normal flow. Left lobe: 3.7 x 1.8 x 1.4 centimeters. Nodular and heterogeneous echotexture of the gland. Increased flow. Impression: 1. Nodular heterogeneous bilateral thyroid gland with increased flow. Clinical correlation. 2. Complex nodules seen within the right lobe of the thyroid as described. 3. Overall nodular echotexture of the left thyroid gland. Correlation with thyroid biopsy may be helpful if clinically indicated.
--- NOTE | 2018-04-13 11:07 | PN ---
DATE: 04/13/2018 TIME OF EVALUATION: 7:15 a.m. NEUROLOGICAL PROBLEM: Multiple embolic strokes with possible paroxysmal atrial fibrillation. PHYSICAL EXAMINATION: GENERAL: The patient is awake, speech is slurred, seems to be confused. Right hemiparesis with dysmetria on the left side consistent with CAT scan findings. VITAL SIGNS: Blood pressure 126/84, mean artery pressure of 98, respiratory rate 18, temperature afebrile with pulse rate of 95 on the monitor. The patient was started on Eliquis yesterday with aspirin. The patient will be followed closely with you. Andrew Castro MD
[2018-04-13] MEDS: hydroCHLOROthiazide-Triamterene 25 mg-37.5 mg Cap UD PO SCH (11:24)
[2018-04-13] MEDS: Piperacillin/Tazobact 2.25 GM in Sodium Chloride 100 ML IVPB SCH ×3 (13:21→22:57)
--- NOTE | 2018-04-13 13:28 | NM ---
Date of service: 04/13/2018 PROCEDURE: Whole Body Bone Scan HISTORY: bony mets COMPARISON: None available. TECHNIQUE: Following administration of 22.1 miCu of Tc MDP multiplanar whole body images were obtained. FINDINGS: Evidence for bony metastatic disease: Left shoulder, left humerus, right humerus, bilateral femurs, right proximal tibia/tibial plateau region. Additional abnormalities in the sternum and ribs. Possible additional abnormalities lower cervical spine. Calvarial abnormalities noted involving both the high parietal regions and base of skull. Degenerative uptake: None. Physiologic uptake: Normal physiologic activity in the kidneys. Other findings: None. 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
--- NOTE | 2018-04-13 13:48 | RAD ---
Date of service: 04/13/2018 HISTORY: leukocytosis COMPARISON: 04/11/2018 FINDINGS: LUNGS: No active pulmonary disease. PLEURA: No significant pleural effusion identified, no pneumothorax apparent. CARDIOVASCULAR: No aortic atherosclerotic calcification present. Normal heart size. Coronary arterial calcification noted. No congestive change. OSSEOUS STRUCTURES: No significant abnormalities. VISUALIZED UPPER ABDOMEN: Normal. OTHER FINDINGS: None. IMPRESSION: No active disease.
--- NOTE | 2018-04-13 14:14 | CP.PCM.PN ---
Subjective - Date & Time of Evaluation Date of Evaluation: 04/13/18 Time of Evaluation: 14:10 - Subjective Subjective: Gini Montano DO, PGY-2: ICU Progress Note for Dr. Millan Patient was seen and examined at bedside. Patient had no complaints. She is off of any oxygen support. Patient was observed to be in atrial fibrillation with RVR this morning. She was switched to PO diltiazem. Objective - Vital Signs/Intake and Output Vital Signs (last 24 hours): Temp Pulse Resp BP Pulse Ox 98.0 F 100 H 26 H 123/76 97 04/13/18 08:00 04/13/18 12:01 04/13/18 12:01 04/13/18 12:01 04/13/18 12:01 Intake and Output: 04/13/18 04/13/18 06:59 18:59 Intake Total 589 18 Output Total 795 195 Balance -206 -177 - Medications Medications: Current Medications Albuterol/Ipratropium (Duoneb 3 Mg/0.5 Mg (3 Ml) Ud) 3 ml INH RQ6 [facility] Last Admin: 04/13/18 13:50 Dose: 3 ml Apixaban (Eliquis) 2.5 mg PO BID [facility] Last Admin: 04/13/18 09:20 Dose: 2.5 mg Aspirin (Aspirin Chewable) 81 mg PO DAILY [facility] Last Admin: 04/13/18 09:20 Dose: 81 mg Diltiazem HCl (Cardizem) 30 mg PO QID [facility] Last Admin: 04/13/18 13:21 Dose: 30 mg Fluconazole (Diflucan) 100 mg PO DAILY [facility]; Protocol Stop: 04/18/18 23:59 Last Admin: 04/13/18 09:20 Dose: 100 mg Piperacillin Sod/Tazobactam (Sod 2.25 gm/ Sodium Chloride) 100 mls @ 200 mls/hr IVPB Q6H [facility]; Protocol Last Admin: 04/13/18 13:21 Dose: 200 mls/hr Insulin Aspart (Novolog) 0 unit SC Q6H [facility]; Protocol Last Admin: 04/13/18 11:57 Dose: Not Given Levothyroxine Sodium (Synthroid) 75 mcg PO DAILY@0630 [facility] Lisinopril (Zestril) 40 mg PO DAILY [facility] Last Admin: 04/13/18 09:21 Dose: 40 mg Methylprednisolone (Solu-Medrol) 40 mg IVP DAILY [facility] Last Admin: 04/13/18 09:22 Dose: 40 mg Pantoprazole Sodium (Protonix Inj) 40 mg IVP DAILY [facility] Last Admin: 04/13/18 09:21 Dose: 40 mg Rosuvastatin Calcium (Crestor) 5 mg PO HS [facility] Last Admin: 04/12/18 22:50 Dose: 5 mg Vitamin A (Vitamin A & D Oint Ud Foilpak) 0.5 ea TOP Q4 PRN PRN Reason: Dry mouth Last Admin: 04/10/18 16:28 Dose: 0.5 ea - Labs Labs: 04/13/18 06:11 04/13/18 06:09 PT 12.2 SECONDS (9.7-12.2) 04/09/18 19:06 INR 1.1 04/09/18 19:06 APTT 28 SECONDS (21-34) D 04/10/18 01:23 - Constitutional Appears: Well, Non-toxic - Head Exam Head Exam: ATRAUMATIC, NORMOCEPHALIC - Eye Exam Eye Exam: EOMI, Normal appearance - ENT Exam ENT Exam: Mucous Membranes Moist, Normal Oropharynx - Neck Exam Neck Exam: Normal Inspection - Respiratory Exam Respiratory Exam: Clear to Ausculation Bilateral, NORMAL BREATHING PATTERN. absent: Accessory Muscle Use - Cardiovascular Exam Cardiovascular Exam: RRR, +S1, +S2 - GI/Abdominal Exam GI & Abdominal Exam: Soft, Normal Bowel Sounds - Extremities Exam Extremities Exam: Normal Inspection. absent: Calf Tenderness - Neurological Exam Neurological Exam: Alert, Awake, Oriented x3 - Psychiatric Exam Psychiatric exam: Normal Affect, Normal Mood - Skin Skin Exam: Dry, Intact, Normal Color, Warm Assessment and Plan - Assessment and Plan (Free Text) Assessment: 67 year old female with past medical history of hypertension anxiety, CVA with mild left sided weakness and slurred speech, s/p coronary stent placement two weks ago who presented with acute respiratory failure and was intubated in the field. Currently she is off any ventilator support. Bone scan demonstrated w idely disseminated osseous metastatic disease axial and appendicular skeleton. Patient has developed an DEVIN; in light of this, her vancomycin was discontinued and her Zosyn was changed to 2.25 gram q6h [facility]. She is on Dilitiazem 30 QID for her atrial fibrillation and Eliquis 2.5 BID. She is also on Fluconazole for oropharyngeal dysphagia. We will keep her on IV steroids for the next two days. Speech language pathologist recommended ENT consult to assess vocal chord function/airway patency, NPO for now, and Video fluoroscopy, all of which we shall obtain. Lisinopril, we will hold for DEVIN. Levothyroxine 75 mcg for multinodular goiter and hypothyroidism. Endocrinology is following. Labs show hypercalcemia, hyperphostaphatemia, hypermagnesemia, and hypernatremia. These lab abnormalities are likely consequent of her DEVIN. We will consult Nephrology. Case was reviewed and discussed with attending physician, Dr. Millan
[2018-04-13 15:01] LABS: ALB/GLOB RATIO 1.2 (1.0-2.1); CALCIUM 10.9 mg/dl (8.6-10.4)
--- NOTE | 2018-04-13 18:01 | CP.PCM.PN ---
Subjective - Date & Time of Evaluation Date of Evaluation: 04/13/18 Time of Evaluation: 10:00 - Subjective Subjective: Patient seen and examined in the intensive care unit Patient is awake but unable to talk Started on Cardizem drip for atrial fibrillation No shortness of breath noted Afebrile Objective - Vital Signs/Intake and Output Vital Signs (last 24 hours): Temp Pulse Resp BP Pulse Ox 97.8 F 88 19 120/80 95 04/13/18 12:00 04/13/18 16:01 04/13/18 16:01 04/13/18 16:01 04/13/18 16:01 Intake and Output: 04/13/18 04/13/18 06:59 18:59 Intake Total 589 121 Output Total 795 315 Balance -206 -194 - Medications Medications: Current Medications Albuterol/Ipratropium (Duoneb 3 Mg/0.5 Mg (3 Ml) Ud) 3 ml INH RQ6 [facility] Last Admin: 04/13/18 13:50 Dose: 3 ml Apixaban (Eliquis) 2.5 mg PO BID [facility] Last Admin: 04/13/18 17:41 Dose: 2.5 mg Aspirin (Aspirin Chewable) 81 mg PO DAILY [facility] Last Admin: 04/13/18 09:20 Dose: 81 mg Diltiazem HCl (Cardizem) 30 mg PO QID [facility] Last Admin: 04/13/18 17:41 Dose: 30 mg Fluconazole (Diflucan) 100 mg PO DAILY [facility]; Protocol Stop: 04/18/18 23:59 Last Admin: 04/13/18 09:20 Dose: 100 mg Piperacillin Sod/Tazobactam (Sod 2.25 gm/ Sodium Chloride) 100 mls @ 200 mls/hr IVPB Q6H [facility]; Protocol Last Admin: 04/13/18 17:41 Dose: 200 mls/hr Insulin Aspart (Novolog) 0 unit SC Q6H [facility]; Protocol Last Admin: 04/13/18 17:55 Dose: Not Given Levothyroxine Sodium (Synthroid) 75 mcg PO DAILY@0630 [facility] Lisinopril (Zestril) 40 mg PO DAILY [facility] Last Admin: 04/13/18 09:21 Dose: 40 mg Methylprednisolone (Solu-Medrol) 40 mg IVP DAILY [facility] Last Admin: 04/13/18 09:22 Dose: 40 mg Pantoprazole Sodium (Protonix Inj) 40 mg IVP DAILY [facility] Last Admin: 04/13/18 09:21 Dose: 40 mg Rosuvastatin Calcium (Crestor) 5 mg PO HS [facility] Last Admin: 04/12/18 22:50 Dose: 5 mg Vitamin A (Vitamin A & D Oint Ud Foilpak) 0.5 ea TOP Q4 PRN PRN Reason: Dry mouth Last Admin: 04/10/18 16:28 Dose: 0.5 ea - Labs Labs: 04/13/18 06:11 04/13/18 14:34 PT 12.2 SECONDS (9.7-12.2) 04/09/18 19:06 INR 1.1 04/09/18 19:06 APTT 28 SECONDS (21-34) D 04/10/18 01:23 - Head Exam Head Exam: ATRAUMATIC, NORMOCEPHALIC - ENT Exam ENT Exam: Mucous Membranes Moist - Neck Exam Neck Exam: Normal Inspection - Respiratory Exam Respiratory Exam: Decreased Breath Sounds - Cardiovascular Exam Cardiovascular Exam: REGULAR RHYTHM - GI/Abdominal Exam GI & Abdominal Exam: Soft, Normal Bowel Sounds Assessment and Plan (1) Acute respiratory failure with hypoxia and hypercapnia Assessment & Plan: Status post extubation and in no respiratory distress On Cardizem drip for atrial fibrillation and Eliquis Status: Acute
--- NOTE | 2018-04-13 18:02 | CP.PCM.CON ---
History of Present Illness - History of Present Illness History of Present Illness: pt is seen and examined, full consult is dictated #[id number] 1. hypernatremia 2. DEVIN 3. Metastatic disease 4. CAD 5. CVA 6. thyroid mass , r/o malignency 7. hypercalemia sec to dehyration , ? malignency check urine lytes, osm, pth, pth -rp, cea, ca19-9, ca125, afp, consider endo consult to r/o thyroid malignency start ivf d5w at 70 m l/hr prognosis is poor Past Patient History - Infectious Disease Hx of Infectious Diseases: None - Past Medical History & Family History Past Medical History?: Yes - Past Social History Smoking Status: Never Smoked Chewing Tobacco Use: No Cigar Use: No Alcohol: None Home Situation {Lives}: With Family - CARDIAC Hx Hypertension: Yes - PULMONARY Hx Chronic Obstructive Pulmonary Disease (COPD): Yes - NEUROLOGICAL Hx Neurological Disorder: No HX Cerebrovascular Accident: Yes - HEENT Hx HEENT Problems: No - RENAL Hx Chronic Kidney Disease: No - ENDOCRINE/METABOLIC Hx Endocrine Disorders: No - HEMATOLOGICAL/ONCOLOGICAL Hx Blood Disorders: No - INTEGUMENTARY Hx Dermatological Problems: No - MUSCULOSKELETAL/RHEUMATOLOGICAL Hx Musculoskeletal Disorders: No Hx Falls: No - GASTROINTESTINAL Hx Gastrointestinal Disorders: No - GENITOURINARY/GYNECOLOGICAL Hx Genitourinary Disorders: No - PSYCHIATRIC Hx Substance Use: No - SURGICAL HISTORY Hx Coronary Stent: Yes - ANESTHESIA Hx Anesthesia: No Meds Allergies/Adverse Reactions: Allergies Allergy/AdvReac Type Severity Reaction Status Date / Time No Known Allergies Allergy Verified 03/25/18 20:59 - Medications Medications: Current Medications Albuterol/Ipratropium (Duoneb 3 Mg/0.5 Mg (3 Ml) Ud) 3 ml INH RQ6 [facility] Last Admin: 04/13/18 13:50 Dose: 3 ml Apixaban (Eliquis) 2.5 mg PO BID [facility] Last Admin: 04/13/18 17:41 Dose: 2.5 mg Aspirin (Aspirin Chewable) 81 mg PO DAILY [facility] Last Admin: 04/13/18 09:20 Dose: 81 mg Diltiazem HCl (Cardizem) 30 mg PO QID [facility] Last Admin: 04/13/18 17:41 Dose: 30 mg Fluconazole (Diflucan) 100 mg PO DAILY [facility]; Protocol Stop: 04/18/18 23:59 Last Admin: 04/13/18 09:20 Dose: 100 mg Piperacillin Sod/Tazobactam (Sod 2.25 gm/ Sodium Chloride) 100 mls @ 200 mls/hr IVPB Q6H [facility]; Protocol Last Admin: 04/13/18 17:41 Dose: 200 mls/hr Insulin Aspart (Novolog) 0 unit SC Q6H [facility]; Protocol Last Admin: 04/13/18 17:55 Dose: Not Given Levothyroxine Sodium (Synthroid) 75 mcg PO DAILY@0630 [facility] Lisinopril (Zestril) 40 mg PO DAILY [facility] Last Admin: 04/13/18 09:21 Dose: 40 mg Methylprednisolone (Solu-Medrol) 40 mg IVP DAILY [facility] Last Admin: 04/13/18 09:22 Dose: 40 mg Pantoprazole Sodium (Protonix Inj) 40 mg IVP DAILY [facility] Last Admin: 04/13/18 09:21 Dose: 40 mg Rosuvastatin Calcium (Crestor) 5 mg PO HS [facility] Last Admin: 04/12/18 22:50 Dose: 5 mg Vitamin A (Vitamin A & D Oint Ud Foilpak) 0.5 ea TOP Q4 PRN PRN Reason: Dry mouth Last Admin: 04/10/18 16:28 Dose: 0.5 ea Results - Vital Signs Recent Vital Signs: Last Vital Signs Temp 97.8 F 04/13/18 12:00 Pulse 88 04/13/18 16:01 Resp 19 04/13/18 16:01 BP 120/80 04/13/18 16:01 Pulse Ox 95 04/13/18 16:01 - Labs Result Diagrams: 04/13/18 06:11 04/13/18 14:34 Labs: Laboratory Results - last 24 hr 04/12/18 04/13/18 04/13/18 23:32 04:44 06:09 WBC RBC Hgb Hct MCV MCH MCHC RDW Plt Count MPV Neut % (Auto) Lymph % (Auto) [place] % (Auto) Eos % (Auto) Baso % (Auto) Neut # (Auto) Lymph # (Auto) [place] # (Auto) Eos # (Auto) Baso # (Auto) Neutrophils % (Manual) Band Neutrophils % Lymphocytes % (Manual) Reactive Lymphs % Monocytes % (Manual) Platelet Estimate RBC Morphology Sodium Potassium Chloride Carbon Dioxide Anion Gap BUN Creatinine Est GFR ( Amer) Est GFR (Non-Af Amer) POC Glucose (mg/dL) 156 H 156 H Random Glucose Calcium Phosphorus Magnesium Total Bilirubin AST ALT Alkaline Phosphatase Total Protein Albumin Globulin Albumin/Globulin Ratio Free T4 Thyroxine (T4) TSH 3rd Generation Cortisol AM Sample 74.7 H 04/13/18 04/13/18 04/13/18 06:09 06:09 06:11 WBC 17.7 H RBC 3.44 L Hgb 10.8 L Hct 33.0 L MCV 96.0 MCH 31.5 H MCHC 32.8 L RDW 14.1 Plt Count 264 MPV 9.4 Neut % (Auto) 90.9 H Lymph % (Auto) 2.7 L [place] % (Auto) 6.2 Eos % (Auto) 0.0 Baso % (Auto) 0.2 Neut # (Auto) 16.1 H Lymph # (Auto) 0.5 L [place] # (Auto) 1.1 H Eos # (Auto) 0.0 Baso # (Auto) 0.0 Neutrophils % (Manual) 80 H Band Neutrophils % 4 H Lymphocytes % (Manual) 4 L Reactive Lymphs % 1 H Monocytes % (Manual) 11 H Platelet Estimate Normal RBC Morphology Normal Sodium 155 H Potassium 3.5 L Chloride 113 H Carbon Dioxide 32 H Anion Gap 13 BUN 60 H Creatinine 2.1 H Est GFR ( Amer) 28 Est GFR (Non-Af Amer) 23 POC Glucose (mg/dL) Random Glucose 162 H Calcium 11.1 H Phosphorus Magnesium 3.2 H Total Bilirubin AST ALT Alkaline Phosphatase Total Protein Albumin Globulin Albumin/Globulin Ratio Free T4 0.59 L Thyroxine (T4) 3.83 L TSH 3rd Generation 10.20 H Cortisol AM Sample 04/13/18 04/13/18 04/13/18 11:10 14:34 17:50 WBC RBC Hgb Hct MCV MCH MCHC RDW Plt Count MPV Neut % (Auto) Lymph % (Auto) [place] % (Auto) Eos % (Auto) Baso % (Auto) Neut # (Auto) Lymph # (Auto) [place] # (Auto) Eos # (Auto) Baso # (Auto) Neutrophils % (Manual) Band Neutrophils % Lymphocytes % (Manual) Reactive Lymphs % Monocytes % (Manual) Platelet Estimate RBC Morphology Sodium 155 H Potassium 3.7 Chloride 117 H Carbon Dioxide 28 Anion Gap 14 BUN 77 H Creatinine 2.4 H Est GFR ( Amer) 24 Est GFR (Non-Af Amer) 20 POC Glucose (mg/dL) 206 H 174 H Random Glucose 194 H Calcium 10.9 H Phosphorus 4.1 Magnesium 3.1 H Total Bilirubin 1.1 AST 17 ALT 28 Alkaline Phosphatase 111 Total Protein 7.2 Albumin 4.0 Globulin 3.2 Albumin/Globulin Ratio 1.2 Free T4 Thyroxine (T4) TSH 3rd Generation Cortisol AM Sample
--- NOTE | 2018-04-13 19:05 | PN ---
DATE: 04/13/2018 ENDOCRINOLOGY FOLLOWUP NOTE LOCATION: Room 14 A, ICU. SUBJECTIVE: This is a 67-year-old female with recent acute respiratory failure and has since then been extubated and is improving clinically and hemodynamically as noted thereof. She continues to have episodic bouts of confusion with persistent expressive aphasias noted. LABORATORY DATA: Her latest chemistry showed a BUN of 60, sodium 155, potassium 3.5, chloride 113, CO2 32, glucose 162, and creatinine 2.1. Her glucose levels have ranged from 156 to 206 mg/dL. Her thyroid study showed a total T4 or thyroxine of 3.83 with a free T4 of 0.59 and a TSH of 10.20, which is elevated as noted. ASSESSMENT: This is a 67-year-old female with overt hypothyroidism, most likely related to underlying autoimmune thyroiditis. She also has a concomitant multinodular goiter with a dominant right thyroid nodule as noted. The CAT scan of the chest showed also tracheal compression from the underlying nodular thyromegaly as expected. PLAN OF MANAGEMENT: We will initiate levothyroxine replacement therapy at a low dose initially of 75 mcg once daily to start tomorrow morning as ordered. We will titrate slowly as indicated to optimize metabolic control. We will obtain serial chemistries and supplement accordingly as needed. We will also obtain thyroid antibodies to include a thyroglobulin panel and a thyroid peroxidase antibody which will confirm and/or indicate the presence of underlying thyroid autoimmunity. We are awaiting the results of the thyroid ultrasound obtained today to fully delineate the thyroid lobe dimensions and also will give us further implications as to the need for fine-needle aspiration biopsy of the dominant thyroid nodule in the right lobe as noted. We will follow. Akiko Erazo MD
--- NOTE | 2018-04-13 21:41 | CP.PCM.PN ---
Subjective - Date & Time of Evaluation Date of Evaluation: 04/13/18 Time of Evaluation: 09:30 - Subjective Subjective: Patient seen and evaluated Paraxysmal A Fib Physical Examination - Constitutional Appears: No Acute Distress - Head Exam Head Exam: ATRAUMATIC, NORMOCEPHALIC - ENT Exam ENT Exam: Mucous Membranes Dry - Neck Exam Neck Exam: Full ROM. absent: Tenderness - Respiratory Exam Respiratory Exam: Decreased Breath Sounds (with slight congestion but improving sounds ), NORMAL BREATHING PATTERN - Cardiovascular Exam Cardiovascular Exam: REGULAR RHYTHM - GI/Abdominal Exam GI & Abdominal Exam: Soft, Normal Bowel Sounds. absent: Distended, Tenderness - Back Exam Back Exam: Full ROM - Neurological Exam Neurological Exam: Alert, Awake, Oriented x3 (weak righ side, slurred speech weak right corner mouth,) - Psychiatric Exam Psychiatric exam: Normal Affect, Normal Mood - Skin Skin Exam: Intact, Normal Color Assessment and Plan - Assessment and Plan (Free Text) Assessment: Patient with history of Hypertension with recent CVA-with right sided weakness CAD post stent on plavix aspirin PT Hypertension and Anxiety -adjust meds accordingly COPD/Emphysema admitted for Respiratory failure- with CXR_CHF, intubated in the field right clavicular fracture -follow up ortho extubated newCVA- further Neuro/cardio evaluation ongoing Metastatic Ca Patient with A Fib On cardizem drip On Eliquis 2.5 mg po bid Continue ASA 81 daily Plavix Stopped Objective - Vital Signs/Intake and Output Vital Signs (last 24 hours): Temp Pulse Resp BP Pulse Ox 98.0 F 91 H 21 134/91 H 95 04/13/18 16:00 04/13/18 18:00 04/13/18 18:00 04/13/18 18:00 04/13/18 18:00 Intake and Output: 04/13/18 04/14/18 18:59 06:59 Intake Total 221 Output Total 375 Balance -154 - Medications Medications: Current Medications Albuterol/Ipratropium (Duoneb 3 Mg/0.5 Mg (3 Ml) Ud) 3 ml INH RQ6 [facility] Last Admin: 04/13/18 19:09 Dose: 3 ml Apixaban (Eliquis) 2.5 mg PO BID [facility] Last Admin: 04/13/18 17:41 Dose: 2.5 mg Aspirin (Aspirin Chewable) 81 mg PO DAILY [facility] Last Admin: 04/13/18 09:20 Dose: 81 mg Diltiazem HCl (Cardizem) 30 mg PO QID [facility] Last Admin: 04/13/18 17:41 Dose: 30 mg Fluconazole (Diflucan) 100 mg PO DAILY [facility]; Protocol Stop: 04/18/18 23:59 Last Admin: 04/13/18 09:20 Dose: 100 mg Piperacillin Sod/Tazobactam (Sod 2.25 gm/ Sodium Chloride) 100 mls @ 200 mls/hr IVPB Q6H [facility]; Protocol Last Admin: 04/13/18 17:41 Dose: 200 mls/hr Dextrose (Dextrose 5% In Water 1000 Ml) 1,000 mls @ 70 mls/hr IV .[id number] [facility] Last Admin: 04/13/18 18:19 Dose: 70 mls/hr Insulin Aspart (Novolog) 0 unit SC Q6H [facility]; Protocol Last Admin: 04/13/18 17:55 Dose: Not Given Levothyroxine Sodium (Synthroid) 75 mcg PO DAILY@0630 [facility] Methylprednisolone (Solu-Medrol) 40 mg IVP DAILY [facility] Last Admin: 04/13/18 09:22 Dose: 40 mg Pantoprazole Sodium (Protonix Inj) 40 mg IVP DAILY [facility] Last Admin: 04/13/18 09:21 Dose: 40 mg Rosuvastatin Calcium (Crestor) 5 mg PO HS [facility] Last Admin: 04/12/18 22:50 Dose: 5 mg Vitamin A (Vitamin A & D Oint Ud Foilpak) 0.5 ea TOP Q4 PRN PRN Reason: Dry mouth Last Admin: 04/10/18 16:28 Dose: 0.5 ea - Labs Labs: 04/13/18 06:11 04/13/18 14:34 PT 12.2 SECONDS (9.7-12.2) 04/09/18 19:06 INR 1.1 04/09/18 19:06 APTT 28 SECONDS (21-34) D 04/10/18 01:23
--- NOTE | 2018-04-13 22:27 | CP.PCM.CON ---
History of Present Illness - History of Present Illness History of Present Illness: 67 yo woman with history of recent CVA, s/p coronary stents , was in rehab when she c/o chest and sternal pain, EMS called in by rehab, intubated in the field. The patient is currently extubated, follows simple commands, nonverbal(?dys arthria versus hoarseness), unable to swallow. The work up for the recent course of events, revealing a large right thyroid mass, with mass effect on the trachea and the esophagus, bone scan with diffuse lytic lesions throughout the skeleton, including calvarium, sternum, ribs, spine, femurs. As per the patient has no history of recent weight loss or c/o pain other than the sternum and chest area. PMHx- As per the the patient was in very good health until 3-4 weeks ago Past Patient History - Infectious Disease Hx of Infectious Diseases: None - Past Medical History & Family History Past Medical History?: Yes - Past Social History Smoking Status: Never Smoked Chewing Tobacco Use: No Cigar Use: No Alcohol: None Home Situation {Lives}: With Family - CARDIAC Hx Hypertension: Yes - PULMONARY Hx Chronic Obstructive Pulmonary Disease (COPD): Yes - NEUROLOGICAL Hx Neurological Disorder: No HX Cerebrovascular Accident: Yes - HEENT Hx HEENT Problems: No - RENAL Hx Chronic Kidney Disease: No - ENDOCRINE/METABOLIC Hx Endocrine Disorders: No - HEMATOLOGICAL/ONCOLOGICAL Hx Blood Disorders: No - INTEGUMENTARY Hx Dermatological Problems: No - MUSCULOSKELETAL/RHEUMATOLOGICAL Hx Musculoskeletal Disorders: No Hx Falls: No - GASTROINTESTINAL Hx Gastrointestinal Disorders: No - GENITOURINARY/GYNECOLOGICAL Hx Genitourinary Disorders: No - PSYCHIATRIC Hx Substance Use: No - SURGICAL HISTORY Hx Coronary Stent: Yes - ANESTHESIA Hx Anesthesia: No Meds Allergies/Adverse Reactions: Allergies Allergy/AdvReac Type Severity Reaction Status Date / Time No Known Allergies Allergy Verified 03/25/18 20:59 - Medications Medications: Current Medications Albuterol/Ipratropium (Duoneb 3 Mg/0.5 Mg (3 Ml) Ud) 3 ml INH RQ6 [facility] Last Admin: 04/13/18 19:09 Dose: 3 ml Apixaban (Eliquis) 2.5 mg PO BID [facility] Last Admin: 04/13/18 17:41 Dose: 2.5 mg Aspirin (Aspirin Chewable) 81 mg PO DAILY [facility] Last Admin: 04/13/18 09:20 Dose: 81 mg Diltiazem HCl (Cardizem) 30 mg PO QID [facility] Last Admin: 04/13/18 22:13 Dose: 30 mg Fluconazole (Diflucan) 100 mg PO DAILY [facility]; Protocol Stop: 04/18/18 23:59 Last Admin: 04/13/18 09:20 Dose: 100 mg Piperacillin Sod/Tazobactam (Sod 2.25 gm/ Sodium Chloride) 100 mls @ 200 mls/hr IVPB Q6H [facility]; Protocol Last Admin: 04/13/18 17:41 Dose: 200 mls/hr Dextrose (Dextrose 5% In Water 1000 Ml) 1,000 mls @ 70 mls/hr IV .[id number] [facility] Last Admin: 04/13/18 18:19 Dose: 70 mls/hr Insulin Aspart (Novolog) 0 unit SC Q6H [facility]; Protocol Last Admin: 04/13/18 17:55 Dose: Not Given Levothyroxine Sodium (Synthroid) 75 mcg PO DAILY@0630 [facility] Methylprednisolone (Solu-Medrol) 40 mg IVP DAILY [facility] Last Admin: 04/13/18 09:22 Dose: 40 mg Pantoprazole Sodium (Protonix Inj) 40 mg IVP DAILY [facility] Last Admin: 04/13/18 09:21 Dose: 40 mg Rosuvastatin Calcium (Crestor) 5 mg PO HS [facility] Last Admin: 04/13/18 22:13 Dose: 5 mg Vitamin A (Vitamin A & D Oint Ud Foilpak) 0.5 ea TOP Q4 PRN PRN Reason: Dry mouth Last Admin: 04/10/18 16:28 Dose: 0.5 ea Results - Vital Signs Recent Vital Signs: Last Vital Signs Temp 98.0 F 04/13/18 16:00 Pulse 91 H 04/13/18 18:00 Resp 21 04/13/18 18:00 BP 134/91 H 04/13/18 18:00 Pulse Ox 95 04/13/18 18:00 - Labs Result Diagrams: 04/13/18 06:11 04/13/18 14:34 Labs: Laboratory Results - last 24 hr 04/12/18 04/13/18 04/13/18 23:32 04:44 06:09 WBC RBC Hgb Hct MCV MCH MCHC RDW Plt Count MPV Neut % (Auto) Lymph % (Auto) [place] % (Auto) Eos % (Auto) Baso % (Auto) Neut # (Auto) Lymph # (Auto) [place] # (Auto) Eos # (Auto) Baso # (Auto) Neutrophils % (Manual) Band Neutrophils % Lymphocytes % (Manual) Reactive Lymphs % Monocytes % (Manual) Platelet Estimate RBC Morphology Sodium Potassium Chloride Carbon Dioxide Anion Gap BUN Creatinine Est GFR ( Amer) Est GFR (Non-Af Amer) POC Glucose (mg/dL) 156 H 156 H Random Glucose Calcium Phosphorus Magnesium Total Bilirubin AST ALT Alkaline Phosphatase Total Protein Albumin Globulin Albumin/Globulin Ratio Free T4 Thyroxine (T4) TSH 3rd Generation Cortisol AM Sample 74.7 H 04/13/18 04/13/18 04/13/18 06:09 06:09 06:11 WBC 17.7 H RBC 3.44 L Hgb 10.8 L Hct 33.0 L MCV 96.0 MCH 31.5 H MCHC 32.8 L RDW 14.1 Plt Count 264 MPV 9.4 Neut % (Auto) 90.9 H Lymph % (Auto) 2.7 L [place] % (Auto) 6.2 Eos % (Auto) 0.0 Baso % (Auto) 0.2 Neut # (Auto) 16.1 H Lymph # (Auto) 0.5 L [place] # (Auto) 1.1 H Eos # (Auto) 0.0 Baso # (Auto) 0.0 Neutrophils % (Manual) 80 H Band Neutrophils % 4 H Lymphocytes % (Manual) 4 L Reactive Lymphs % 1 H Monocytes % (Manual) 11 H Platelet Estimate Normal RBC Morphology Normal Sodium 155 H Potassium 3.5 L Chloride 113 H Carbon Dioxide 32 H Anion Gap 13 BUN 60 H Creatinine 2.1 H Est GFR ( Amer) 28 Est GFR (Non-Af Amer) 23 POC Glucose (mg/dL) Random Glucose 162 H Calcium 11.1 H Phosphorus Magnesium 3.2 H Total Bilirubin AST ALT Alkaline Phosphatase Total Protein Albumin Globulin Albumin/Globulin Ratio Free T4 0.59 L Thyroxine (T4) 3.83 L TSH 3rd Generation 10.20 H Cortisol AM Sample 04/13/18 04/13/18 04/13/18 11:10 14:34 17:50 WBC RBC Hgb Hct MCV MCH MCHC RDW Plt Count MPV Neut % (Auto) Lymph % (Auto) [place] % (Auto) Eos % (Auto) Baso % (Auto) Neut # (Auto) Lymph # (Auto) [place] # (Auto) Eos # (Auto) Baso # (Auto) Neutrophils % (Manual) Band Neutrophils % Lymphocytes % (Manual) Reactive Lymphs % Monocytes % (Manual) Platelet Estimate RBC Morphology Sodium 155 H Potassium 3.7 Chloride 117 H Carbon Dioxide 28 Anion Gap 14 BUN 77 H Creatinine 2.4 H Est GFR ( Amer) 24 Est GFR (Non-Af Amer) 20 POC Glucose (mg/dL) 206 H 174 H Random Glucose 194 H Calcium 10.9 H Phosphorus 4.1 Magnesium 3.1 H Total Bilirubin 1.1 AST 17 ALT 28 Alkaline Phosphatase 111 Total Protein 7.2 Albumin 4.0 Globulin 3.2 Albumin/Globulin Ratio 1.2 Free T4 Thyroxine (T4) TSH 3rd Generation Cortisol AM Sample Assessment & Plan (1) Metastatic cancer Assessment and Plan: 67yo woman with recent CVA, coronary stents, new finding of large thyroid mass with several diffuse lytic lesions in the bones. Have had a lengthy discussion with the about the strong possibility of cancer that has spread to the bones, most likely thyroid primary though other primaries are possible. Differentiated thyroid primaries are less likely to present this way and Anaplastic thyroid cancer is a concern, in which case metastatic disease is rapidly fatal with very limited treatment options. The patient's is aware of this and have informed him that the next step would be to do a biopsy, if cleared by ICU and cardiology to be transferred to IR for the procedure. Will order a thyroglobulin level and antibodies, CEA and TSH. Status: Acute
[2018-04-14] MEDS ORDERED: Sodium Chloride 0.9% 500 ML IV ONE (00:40)
[2018-04-14] MEDS: Albuterol-Ipratrop 3 mg / 0.5 (3 ml) UD INH SCH ×4 (01:12→19:37)
[2018-04-14] MEDS: Piperacillin/Tazobact 2.25 GM in Sodium Chloride 100 ML IVPB SCH (05:25)
[2018-04-14] MEDS: Levothyroxine 75 MCG TAB PO SCH ×2 (05:35→07:19)
[2018-04-14 07:46] LABS: BASO % 0.2 % (0.0-2.0); EOS % 0.1 % (0.0-4.0); HEMOGLOBIN 9.9 g/dL (11.0-16.0); LYMPH # 0.6 K/uL (1.0-4.3); LYMPH % 3.6 % (20.0-40.0); MEAN CELL VOLUME 95.8 fL (81.0-99.0); MEAN CORPUSCULAR HEMOGLOBIN 31.7 pg (27.0-31.0); MEAN CORPUSCULAR HGB CONC 33.2 g/dL (33.0-37.0); MEAN PLATELET VOLUME 9.8 fL (7.2-11.7); MONO % 6.1 % (0.0-10.0); NEUT # 14.8 K/uL (1.8-7.0); NRBC % 0.2 % (0.0-2.0); PLATELET COUNT 243 K/uL (130-400); RBC 3.11 Mil/uL (3.80-5.20); RED CELL DISTRIBUTION WIDTH 14.3 % (11.5-14.5); WHITE BLOOD COUNT 16.5 K/uL (4.8-10.8)
[2018-04-14 07:52] LABS: ALB/GLOB RATIO 1.2 (1.0-2.1); ALBUMIN 3.4 g/dL (3.5-5.0); CALCIUM 10.3 mg/dl (8.6-10.4)
[2018-04-14] MEDS: (Novolog) Insulin Aspart, Recombinant 100 u/ml 10 ml vial SC SCH ×4 (08:13→18:23)
--- NOTE | 2018-04-14 08:15 | CON ---
DATE: 04/13/2018 LOCATION: The patient is located in ICU, bed 14A. REQUESTED BY: Libia Brady MD REASON FOR RENAL CONSULTATION: Hypernatremia, acute renal failure, status post extubation. HISTORY OF PRESENT ILLNESS: Mrs. Gonzalez is a 67-year-old elderly very thin-built, cachectic [place] female, with history of coronary artery disease, history of CVA recently, who was admitted with chief complaints of acute mental status change and respiratory arrest. The patient was apparently sitting normally with her family and stated that she felt hot and then lost consciousness, and the patient was intubated in the field and had initial CO2 of 70. The patient was also admitted from 04/01/2018 through 04/06/2018 with respiratory distress and COPD, status post NSTEMI, status post stent placement, placed on Plavix and aspirin, and had a CVA with right-sided weakness and also had a pneumonia that was treated with antibiotics during her last admission. The patient was extubated. The patient has hoarseness of voice. Renal consult requested for evaluation of hypernatremia and acute renal failure. Unable to get much history from the patient and the patient's is at the bedside. Chart reviewed and history obtained from the review of the chart. The patient is not in acute distress. No chest pain. No palpitation. No nausea, vomiting, diarrhea. No fever, no cough at this time. PAST MEDICAL HISTORY: Significant for hypertension, CVA, CAD and COPD. PAST SURGICAL HISTORY: Status post stent placement. ALLERGIES: NO KNOWN DRUG ALLERGIES. SOCIAL HISTORY: No smoking. No alcohol. No drugs. PERSONAL HISTORY: She is and she has a very supportive . CURRENT MEDICATIONS: Include as follows: Aspirin 81 mg p.o. daily, diltiazem 30 mg p.o. q.i.d., Crestor 5 mg at bedtime, Diflucan 100 mg p.o. daily, DuoNeb inhaler 3 mL every 6 hours, Eliquis 2.5 mg p.o. b.i.d., Zosyn 2.25 g every 6 hours, Protonix 40 mg IV daily, Solu-Medrol 40 mg IV daily, Synthroid 75 mcg p.o. daily, vitamin A and D ointment topical every 4 hours p.r.n. REVIEW OF SYSTEMS: Significant for altered mental status and respiratory arrest, status post intubation and extubation now. All other review of systems is reviewed, as per HPI. PHYSICAL EXAMINATION: VITAL SIGNS: As follows: Blood pressure of 134/91, pulse 91, respirations 21, saturation 95%, and temperature 98. Height 5 feet 3 inches and weight is 78 pounds. BMI is 14 kg/m2. GENERAL: Mrs. Gonzalez is a 67-year-old very thin-built, cachectic [place] female status post extubation, not in distress. HEENT: Pupils normal, reactive to light and accommodation. Conjunctivae pink. Sclerae anicteric. Tongue is dry. Trachea is midline. LUNGS: Symmetric on both sides. Bilateral breath sounds present. No crackles. CVS: [place] at the fifth intercostal space, midclavicular line. S1 and S2 audible. No murmur or gallop. ABDOMEN: Scaphoid, soft, nontender. Bowel sounds present. No hepatosplenomegaly. SUPERINTENDENT GENERAL: The patient is awake, sometimes restless, following simple commands. Sensory system is within normal limits. Motor system, moving all extremities. EXTREMITIES: No cyanosis, no clubbing, no edema. INTAKE AND OUTPUT: As of 04/11/2018: Intake is a 702 mL and output is 3040 mL, negative 2.3 liters; as of 04/12/2018, intake is 660 mL and output is 1675 mL, negative 1 liters; as of 04/13/2018, intake is 1159 and output is 3.4 liters, negative 2251. The patient is negative about 5.5 liters in the last 72 hours. LABORATORY DATA: Lab data include as follows as of 04/13/2018, WBC 17.7, hemoglobin 10.8, hematocrit is 33, platelets 264, neutrophils 80, bands 4, lymph 4, reactive lymph 1, monocytes 11. Sodium is 155, potassium 3.5, chloride 113, CO2 of 32, BUN 60, creatinine 2.1, glucose 162, calcium 11.1, magnesium 3.2. Free thyroxine is 0.59, thyroxine is 3.83, TSH is 10.2, and serum cortisol level is 74.7. As of 04/13/2018, repeat BMP, sodium 155, potassium 3.7, chloride 117, CO2 of 28, BUN 77, creatinine 2.4, glucose 194, calcium 10.9, phosphorus 4.1, magnesium 3.1. Total bili 1.1, AST 17, ALT 28, alkaline phosphatase 111, total protein 7.2, albumin is 4. As of 04/09/2018, WBC 16.9, hemoglobin is 9.7, hematocrit is 30.3, platelets 260, neutrophils 76, bands 6, lymph 11, monos 2. PT 12.2, INR 1.1, PTT 36. ABG; pH of 7.27, pCO2 of 58, and pO2 of 319, bicarb is 24.3 and saturation 99.8. Sodium 140, potassium 3.5, chloride 108, CO2 of 24, BUN 24, creatinine 0.9, glucose 242, hemoglobin A1c 5.4, calcium is 8.3. Total bili 0.3, AST 38, ALT 31, alkaline phosphatase 75, troponin 0.088, total protein 5.4, albumin is 2.8. Urine tox screen is negative. As of 04/10/2018, urine yellow, hazy, pH 7, specific gravity 1.018, protein negative, glucose 1+, protein negative, ketones negative, blood 1+, nitrites negative, bilirubin negative, urobilinogen negative, leukocyte esterase is trace, wbc 6, rbc 6, yeast moderate. As of 04/11/2018, sodium 147. As of 04/12/2018, sodium is 149. As of 04/13/2018, sodium is 155. Chest x-ray as of 04/13/2018, no active disease. Ultrasound of the thyroid as of 04/13/2018, nodular heterogeneous bilateral thyroid gland with increased flow and complex nodules seen within the right lobe of the thyroid as described above, nodular echotexture of the left thyroid gland, correlation with a thyroid biopsy may be helpful if clinically indicated. Bone scan as of 04/13/2018, widely disseminated osseous metastatic disease, axial and appendicular skeleton. CT of the chest as of 04/09/2018, impression, there is a large mass which appears to raise from the right lobe of the thyroid gland which exerts surrounding mass effect and results in compression of the trachea as well as right brachiocephalic artery, subclavian and common carotid arteries. This lesion is suspicious for thyroid malignancy; thyroid biopsy recommended for further evaluation. Destructive changes of the sternum and manubrium, there are also destructive changes seen involving the C7, T1, T2 vertebra body segments. Findings are consistent with metastatic disease; note that there appears to be mottled appearance of many of the remaining thoracic segments which could be due to diffuse osteopenia; however, early metastatic deposits should be excluded. There is also a sclerotic lesion seen within the right posterolateral margin of the T2 segment extending into the pedicles. A sclerotic lesion also present in the T2 spinous process. Bilateral multifocal patchy interstitial and nodular opacities most confluent in the upper lobe bilaterally. CT of the head as of 04/10/2018, impression, developing infarct left cerebellar hemisphere, probably old median right frontal infarct, multiple calvarial lytic lesions suspicious for metastatic disease. ASSESSMENT AND PLAN: In summary, Mrs. Gonzalez is a 67-year-old very thin-built, elderly, very cachectic [place] female with a history of cerebrovascular accident, coronary artery disease, chronic obstructive pulmonary disease, who was admitted with altered mental altered mental and respiratory arrest, status post intubation and extubation, status post diuresis about 5.5 liters in 3 days with increased serum sodium and increased BUN and creatinine. 1. Hypernatremia secondary to intravascular depletion secondary to vigorous diuresis. 2. Acute renal failure secondary to vigorous diuresis and most likely prerenal picture. 3. Metastatic disease with bones and possibly to the lungs and skull. 4. Rule out thyroid cancer. PLAN: We will start IV fluids D5W at 70 cc/hour. Check urine electrolytes, osmolality, and also PTH intact level and PTH related peptide. Check CEA, CA19-9, alpha-fetoprotein, CA-125, and also consider endocrinology evaluation for possible thyroid malignancy and consider CT-guided biopsy of the thyroid mass. Overall prognosis is very poor. We will follow with you. Thank you for allowing me to participate in your patient's care. Jose Angel Adams MD
[2018-04-14 08:25] LABS: BANDS 3 % (0-2); LYMPHOCYTE 3 % (20-40); MONOCYTE 8 % (0-10); NEUTROPHIL 86 % (50-75); NUCLEATED RED BLOOD CELL 1 % (0-0); PLATELET ESTIMATE NORMAL (NORMAL); TOTAL CELLS COUNTED 100
[2018-04-14 08:26] LABS: LARGE PLATELETS PRESENT; TARGET CELLS SLIGHT
--- NOTE | 2018-04-14 09:24 | CP.PCM.PN ---
Subjective - Date & Time of Evaluation Date of Evaluation: 04/14/18 Time of Evaluation: 09:20 - Subjective Subjective: chart review in ICU creatinine going up notes from Oncologist, Renal noted and appreciated vitals noted- stable BP patient seen, lethargic, discussion with ICU, plan for feeding for IR thyroid biopsy Objective - Vital Signs/Intake and Output Vital Signs (last 24 hours): Temp Pulse Resp BP Pulse Ox 98.0 F 89 20 118/85 100 04/14/18 08:00 04/14/18 09:00 04/14/18 09:00 04/14/18 09:00 04/14/18 09:00 Intake and Output: 04/14/18 04/14/18 06:59 18:59 Intake Total 1370 140 Balance 1370 140 - Medications Medications: Current Medications Albuterol/Ipratropium (Duoneb 3 Mg/0.5 Mg (3 Ml) Ud) 3 ml INH RQ6 [facility] Last Admin: 04/14/18 07:30 Dose: 3 ml Apixaban (Eliquis) 2.5 mg PO BID [facility] Last Admin: 04/13/18 17:41 Dose: 2.5 mg Aspirin (Aspirin Chewable) 81 mg PO DAILY [facility] Last Admin: 04/13/18 09:20 Dose: 81 mg Diltiazem HCl (Cardizem) 30 mg PO QID [facility] Last Admin: 04/13/18 22:13 Dose: 30 mg Fluconazole (Diflucan) 100 mg PO DAILY [facility]; Protocol Stop: 04/18/18 23:59 Last Admin: 04/13/18 09:20 Dose: 100 mg Piperacillin Sod/Tazobactam (Sod 2.25 gm/ Sodium Chloride) 100 mls @ 200 mls/hr IVPB Q6H [facility]; Protocol Last Admin: 04/14/18 05:25 Dose: 200 mls/hr Dextrose (Dextrose 5% In Water 1000 Ml) 1,000 mls @ 70 mls/hr IV .[id number] [facility] Last Admin: 04/13/18 18:19 Dose: 70 mls/hr Insulin Aspart (Novolog) 0 unit SC Q6H [facility]; Protocol Last Admin: 04/14/18 08:13 Dose: Not Given Levothyroxine Sodium (Synthroid) 75 mcg PO DAILY@0630 [facility] Last Admin: 04/14/18 07:19 Dose: Not Given Methylprednisolone (Solu-Medrol) 40 mg IVP DAILY [facility] Last Admin: 04/13/18 09:22 Dose: 40 mg Pantoprazole Sodium (Protonix Inj) 40 mg IVP DAILY [facility] Last Admin: 04/13/18 09:21 Dose: 40 mg Rosuvastatin Calcium (Crestor) 5 mg PO HS [facility] Last Admin: 04/13/18 22:13 Dose: 5 mg Vitamin A (Vitamin A & D Oint Ud Foilpak) 0.5 ea TOP Q4 PRN PRN Reason: Dry mouth Last Admin: 04/10/18 16:28 Dose: 0.5 ea - Labs Labs: 04/14/18 07:28 04/14/18 07:28 PT 12.2 SECONDS (9.7-12.2) 04/09/18 19:06 INR 1.1 04/09/18 19:06 APTT 28 SECONDS (21-34) D 04/10/18 01:23 - Constitutional Appears: Other (lethargic) - Head Exam Head Exam: ATRAUMATIC, NORMOCEPHALIC - ENT Exam ENT Exam: Mucous Membranes Dry - Respiratory Exam Respiratory Exam: Decreased Breath Sounds (mild congestion), NORMAL BREATHING PATTERN - Cardiovascular Exam Cardiovascular Exam: REGULAR RHYTHM - GI/Abdominal Exam GI & Abdominal Exam: Soft. absent: Distended - Extremities Exam Extremities Exam: absent: Pedal Edema - Neurological Exam Neurological Exam: Altered (lethargic, with minimal sponataneous movement of left extremeties) - Skin Skin Exam: Intact, Normal Color Assessment and Plan - Assessment and Plan (Free Text) Assessment: Patient with multiple medical problems CVA- acute -with right sided weakness- CAD on meds new onset A FIB- started on meds Thyroid mass for IR biopsy Metastatic lesion to the bones Hypertension NGT Feeding to start/poor swallow ANNA-renal consulted Debility oncloser monitoring
[2018-04-14] MEDS: MethylPREDNISolone 40 mg Vial IVP SCH (09:29)
[2018-04-14] MEDS ORDERED: Potassium Chloride 20 mEq ER Tab PO SCH ×3 (10:21→18:00)
--- NOTE | 2018-04-14 11:33 | CP.PCM.PN ---
Subjective - Date & Time of Evaluation Date of Evaluation: 04/14/18 Time of Evaluation: 11:32 - Subjective Subjective: pt is seen and examined, follow up consult is dictated # metastatic ca, source is not clear r/o pancreatic ca , r/o colon ca c/w ivf d5w at 70 ml/hr Objective - Vital Signs/Intake and Output Vital Signs (last 24 hours): Temp Pulse Resp BP Pulse Ox 98.0 F 89 20 118/85 100 04/14/18 08:00 04/14/18 09:00 04/14/18 09:00 04/14/18 09:00 04/14/18 09:00 Intake and Output: 04/14/18 04/14/18 06:59 18:59 Intake Total 1370 140 Balance 1370 140 - Medications Medications: Current Medications Albuterol/Ipratropium (Duoneb 3 Mg/0.5 Mg (3 Ml) Ud) 3 ml INH RQ6 [facility] Last Admin: 04/14/18 07:30 Dose: 3 ml Apixaban (Eliquis) 2.5 mg PO BID [facility] Last Admin: 04/14/18 09:31 Dose: 2.5 mg Aspirin (Aspirin Chewable) 81 mg PO DAILY [facility] Last Admin: 04/14/18 09:30 Dose: 81 mg Diltiazem HCl (Cardizem) 30 mg PO QID [facility] Last Admin: 04/14/18 09:30 Dose: 30 mg Fluconazole (Diflucan) 100 mg PO DAILY [facility]; Protocol Stop: 04/18/18 23:59 Last Admin: 04/14/18 09:30 Dose: 100 mg Dextrose (Dextrose 5% In Water 1000 Ml) 1,000 mls @ 70 mls/hr IV .[id number] [facility] Last Admin: 04/14/18 10:50 Dose: 70 mls/hr Insulin Aspart (Novolog) 0 unit SC Q6H [facility]; Protocol Last Admin: 04/14/18 08:13 Dose: Not Given Levothyroxine Sodium (Synthroid) 75 mcg PO DAILY@0630 [facility] Last Admin: 04/14/18 07:19 Dose: Not Given Methylprednisolone (Solu-Medrol) 40 mg IVP DAILY [facility] Last Admin: 04/14/18 09:29 Dose: 40 mg Pantoprazole Sodium (Protonix Inj) 20 mg IVP DAILY [facility] Potassium Chloride (K-Dur 20 Meq Er Tab) 40 meq PO BID [facility] Stop: 04/14/18 18:01 Last Admin: 04/14/18 10:51 Dose: 40 meq Rosuvastatin Calcium (Crestor) 5 mg PO HS [facility] Last Admin: 04/13/18 22:13 Dose: 5 mg Vitamin A (Vitamin A & D Oint Ud Foilpak) 0.5 ea TOP Q4 PRN PRN Reason: Dry mouth Last Admin: 04/10/18 16:28 Dose: 0.5 ea - Labs Labs: 04/14/18 07:28 04/14/18 07:28 PT 12.2 SECONDS (9.7-12.2) 04/09/18 19:06 INR 1.1 04/09/18 19:06 APTT 28 SECONDS (21-34) D 04/10/18 01:23
--- NOTE | 2018-04-14 13:02 | CP.PCM.PN ---
Subjective - Date & Time of Evaluation Date of Evaluation: 04/14/18 Time of Evaluation: 07:10 - Subjective Subjective: Progress Note for Dr. Erazo (Endocrine) Service Herbert Rogers DO, IM PGY-3 Patient seen and examined at bedside this AM in the ICU. Overnight, given Ativan x1 for restlessness, but was then found to be hypotensive, resolved with IV Fluid admission. Drowsy/somnolent this AM, not interactive with examiner. Not in apparent distress, lungs clear, and vitals stable on bedside monitor and as per nursing. Objective - Vital Signs/Intake and Output Vital Signs (last 24 hours): Temp Pulse Resp BP Pulse Ox 98 F 63 19 106/65 99 04/14/18 12:00 04/14/18 12:00 04/14/18 12:00 04/14/18 12:00 04/14/18 12:00 Intake and Output: 04/14/18 04/14/18 06:59 18:59 Intake Total 1370 280 Balance 1370 280 - Medications Medications: Current Medications Albuterol/Ipratropium (Duoneb 3 Mg/0.5 Mg (3 Ml) Ud) 3 ml INH RQ6 [facility] Last Admin: 04/14/18 07:30 Dose: 3 ml Apixaban (Eliquis) 2.5 mg PO BID [facility] Last Admin: 04/14/18 09:31 Dose: 2.5 mg Aspirin (Aspirin Chewable) 81 mg PO DAILY [facility] Last Admin: 04/14/18 09:30 Dose: 81 mg Diltiazem HCl (Cardizem) 30 mg PO QID [facility] Last Admin: 04/14/18 09:30 Dose: 30 mg Fluconazole (Diflucan) 100 mg PO DAILY [facility]; Protocol Stop: 04/18/18 23:59 Last Admin: 04/14/18 09:30 Dose: 100 mg Dextrose (Dextrose 5% In Water 1000 Ml) 1,000 mls @ 70 mls/hr IV .[id number] [facility] Last Admin: 04/14/18 10:50 Dose: 70 mls/hr Insulin Aspart (Novolog) 0 unit SC Q6H [facility]; Protocol Last Admin: 04/14/18 12:40 Dose: Not Given Levothyroxine Sodium (Synthroid) 75 mcg PO DAILY@0630 [facility] Last Admin: 04/14/18 07:19 Dose: Not Given Methylprednisolone (Solu-Medrol) 40 mg IVP DAILY [facility] Last Admin: 04/14/18 09:29 Dose: 40 mg Pantoprazole Sodium (Protonix Inj) 20 mg IVP DAILY [facility] Potassium Chloride (K-Dur 20 Meq Er Tab) 40 meq PO BID [facility] Stop: 04/14/18 18:01 Last Admin: 04/14/18 10:51 Dose: 40 meq Rosuvastatin Calcium (Crestor) 5 mg PO HS [facility] Last Admin: 04/13/18 22:13 Dose: 5 mg Vitamin A (Vitamin A & D Oint Ud Foilpak) 0.5 ea TOP Q4 PRN PRN Reason: Dry mouth Last Admin: 04/10/18 16:28 Dose: 0.5 ea - Labs Labs: 04/14/18 07:28 04/14/18 07:28 PT 12.2 SECONDS (9.7-12.2) 04/09/18 19:06 INR 1.1 04/09/18 19:06 APTT 28 SECONDS (21-34) D 04/10/18 01:23 - Constitutional Appears: Other (lethargic/somnolent) - Head Exam Head Exam: ATRAUMATIC, NORMAL INSPECTION, NORMOCEPHALIC - Eye Exam Eye Exam: Normal appearance. absent: Conjunctival injection, Scleral icterus - ENT Exam ENT Exam: Mucous Membranes Moist Additional comments: receiving breathing treatment at time of exam - Neck Exam Neck Exam: Thyromegaly (R>L, bulge from neck appreciated) - Respiratory Exam Respiratory Exam: Clear to Ausculation Bilateral, NORMAL BREATHING PATTERN. absent: Accessory Muscle Use, Chest Wall Tenderness, Decreased Breath Sounds, Rales, Rhonchi, Wheezes Additional comments: receiving breathing tx at time of exam - Cardiovascular Exam Cardiovascular Exam: REGULAR RHYTHM, RRR, +S1, +S2. absent: Bradycardia, Tachycardia, Irregular Rhythm, JVD, +S4 - GI/Abdominal Exam GI & Abdominal Exam: Soft, Normal Bowel Sounds. absent: Tenderness - Extremities Exam Extremities Exam: absent: Calf Tenderness, Pedal Edema - Neurological Exam Additional comments: somnolent/lethargic, not engaging with examiner, not following most commands, few spontaneous movements appreciated - Psychiatric Exam Additional comments: somnolent/lethargic - Skin Skin Exam: Dry, Intact, Normal Color, Warm Assessment and Plan - Assessment and Plan (Free Text) Assessment: This is a 67 yo F with PMH of HTN, Anxiety, HLD, and recently diagnosed CVA with residual L sided weakness, COPD, and CAD s/p stenting who presented in respiratory distress, now extubated, but found to have extensive nodules in the thyroid and extensive lytic bone lesions on imaging, highly concerning for cancer. Endocrine was consulted for the multinodular thyroid gland. Plan: 1) Respiratory distress: resolved, extubated, now on room air 2) Multinodular thyroid gland with extensive bone lytic lesions, concerning for likely metastatic disease 3) COPD 4) CAD s/p stenting 2 weeks prior 5) Recent CVA with residual expressive aphasia/left-sided weakness 6) DEVIN 7) Hypothyroidism -TSH elevated at 10.2 T4 low at 3.83, and Free T4 low at 0.59; continue synthroid 75mcg daily -thyroid antibody panel ordered, pending -Onc consulted by primary, appreciate their insights; agree with them that pt will likely need IR biopsy of the thyroid nodules, IR consulted Case reviewed and discussed with attending, Dr. Erazo.
--- NOTE | 2018-04-14 13:39 | MRI ---
Date of service: 04/14/2018 PROCEDURE: MRI BRAIN WITHOUT CONTRAST HISTORY: r/o metastasis COMPARISON: Noncontrast head CT from 04/10/2018 TECHNIQUE: Multiplanar, multisequence MR images of the brain were obtained without intravenous contrast enhancement. FINDINGS: HEMORRHAGE: None DWI: There are multifocal areas of restricted diffusion in the left centrum semiovale, paramedian corpus callosum, left paramedian splenium of the corpus callosum and left cerebellar hemisphere. BRAIN PARENCHYMA: There is T2/FLAIR hyperintense signal corresponding to the areas of restricted diffusion in the left paramedian corpus callosum and splenium as well as left cerebellar hemisphere. There are old lacunar infarctions in the left basal ganglia and left thalamus. There are severe chronic microangiopathic changes. There is no mass, mass effect or abnormal extra-axial fluid collection. VENTRICLES: There is moderate age-related global parenchymal volume loss and proportionate enlargement of the ventricles and cortical sulci. CRANIUM: There is normal bone marrow signal pattern. ORBITS: Grossly unremarkable. PARANASAL SINUSES/MASTOIDS: The paranasal sinuses are predominantly clear. The mastoid air cells are underdeveloped. There is a small left mastoid effusion VASCULAR SYSTEM: There are normal signal voids in the larger intracranial arteries. OTHER FINDINGS: None. IMPRESSION: 1. Late acute/subacute infarctions in the left centrum semiovale, left paramedian corpus callosum, left paramedian splenium of the corpus callosum and left cerebellar hemisphere. 2. Old lacunar infarctions in the left basal ganglia and left thalamus. 3. Severe chronic microangiopathic changes and moderate age-related global parenchymal volume loss. Important findings were discussed with resident Dr. iVolette Montano on 04/14/2018 at 1:33 p.m.
--- NOTE | 2018-04-14 14:13 | CP.PCM.PN ---
<Gini Montano - Last Filed: 04/14/18 17:29> Subjective - Date & Time of Evaluation Date of Evaluation: 04/14/18 Time of Evaluation: 08:00 - Subjective Subjective: Gini Montano DO, PGY-2: ICU Progress Note for Dr. Colon Patient was seen and examined at bedside. Patient has expressive aphasia. She endorsed no complaints. No adverse events noted overnight. Objective - Vital Signs/Intake and Output Vital Signs (last 24 hours): Temp Pulse Resp BP Pulse Ox 98 F 71 18 106/71 99 04/14/18 12:00 04/14/18 13:00 04/14/18 13:00 04/14/18 13:00 04/14/18 12:00 Intake and Output: 04/14/18 04/14/18 06:59 18:59 Intake Total 1370 350 Balance 1370 350 - Medications Medications: Current Medications Albuterol/Ipratropium (Duoneb 3 Mg/0.5 Mg (3 Ml) Ud) 3 ml INH RQ6 [facility] Last Admin: 04/14/18 13:26 Dose: 3 ml Apixaban (Eliquis) 2.5 mg PO BID [facility] Last Admin: 04/14/18 09:31 Dose: 2.5 mg Aspirin (Aspirin Chewable) 81 mg PO DAILY [facility] Last Admin: 04/14/18 09:30 Dose: 81 mg Diltiazem HCl (Cardizem) 30 mg PO QID [facility] Last Admin: 04/14/18 09:30 Dose: 30 mg Fluconazole (Diflucan) 100 mg PO DAILY [facility]; Protocol Stop: 04/18/18 23:59 Last Admin: 04/14/18 09:30 Dose: 100 mg Dextrose (Dextrose 5% In Water 1000 Ml) 1,000 mls @ 70 mls/hr IV .[id number] [facility] Last Admin: 04/14/18 10:50 Dose: 70 mls/hr Insulin Aspart (Novolog) 0 unit SC Q6H [facility]; Protocol Last Admin: 04/14/18 12:40 Dose: Not Given Levothyroxine Sodium (Synthroid) 75 mcg PO DAILY@0630 [facility] Last Admin: 04/14/18 07:19 Dose: Not Given Methylprednisolone (Solu-Medrol) 40 mg IVP DAILY [facility] Last Admin: 04/14/18 09:29 Dose: 40 mg Pantoprazole Sodium (Protonix Inj) 20 mg IVP DAILY [facility] Potassium Chloride (K-Dur 20 Meq Er Tab) 40 meq PO BID [facility] Stop: 04/14/18 18:01 Last Admin: 04/14/18 10:51 Dose: 40 meq Rosuvastatin Calcium (Crestor) 5 mg PO HS [facility] Last Admin: 04/13/18 22:13 Dose: 5 mg Vitamin A (Vitamin A & D Oint Ud Foilpak) 0.5 ea TOP Q4 PRN PRN Reason: Dry mouth Last Admin: 04/10/18 16:28 Dose: 0.5 ea - Labs Labs: 04/14/18 07:28 04/14/18 07:28 PT 12.2 SECONDS (9.7-12.2) 04/09/18 19:06 INR 1.1 04/09/18 19:06 APTT 28 SECONDS (21-34) D 04/10/18 01:23 - Constitutional Appears: Non-toxic - Head Exam Head Exam: ATRAUMATIC, NORMOCEPHALIC - Eye Exam Eye Exam: EOMI, Normal appearance - ENT Exam ENT Exam: Mucous Membranes Moist - Neck Exam Neck Exam: Normal Inspection - Respiratory Exam Respiratory Exam: Clear to Ausculation Bilateral, NORMAL BREATHING PATTERN. absent: Accessory Muscle Use - Cardiovascular Exam Cardiovascular Exam: RRR, +S1, +S2 - GI/Abdominal Exam GI & Abdominal Exam: Soft, Normal Bowel Sounds - Extremities Exam Extremities Exam: Normal Inspection. absent: Calf Tenderness - Neurological Exam Neurological Exam: Awake - Psychiatric Exam Psychiatric exam: Flat Affect - Skin Skin Exam: Dry, Intact, Normal Color, Warm Assessment and Plan - Assessment and Plan (Free Text) Assessment: 67 year old female with past medical history of hypertension anxiety, CVA with mild left sided weakness and slurred speech, s/p coronary stent placement two weks ago who presented with acute respiratory failure and was intubated in the field. Currently she is off any ventilator support. 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 Patient has developed an DEVIN; in light of this, her vancomycin was discontinued and her Zosyn was changed to 2.25 gram q6h [facility]. She is on Dilitiazem 30 QID for her atrial fibrillation and Eliquis 2.5 BID. She is also on Fluconazole for oropharyngeal dysphagia. She was found to have fungus growing from two sterile sites- urine and sputum. We will taper her IV steroids for the next two days. Speech language pathologist recommended ENT consult to assess vocal chord function/airway patency, NPO for now, and video fluoroscopy. Today, patient was to Lisinopril, we will hold for DEVIN. Levothyroxine 75 mcg for multinodular goiter and hypothyroidism. Endocrinology is following. Labs show hypercalcemia, hyperphostaphatemia, hypermagnesemia, and hypernatremia. These lab abnormalities are likely consequent of her DEVIN. Nephrology is following and started the patient on D5W at a rate of 75 mls/hr. Hematology and Oncology recommend biopsy of the thyroid gland and in doing so holding Eliquis fpor 24-48 hours before the procedure. The patient had a NGT placed and will be getting continous tube feeds of glucerna with a goal rate of 40 mls/hr; starting at 20 mls/hr. MRI of the brain showed 1) Late acute/subacute infarctions in the left centrum semiovale, left paramedian corpus callosum, left paramedian splenium of the corpus callosum and left cerebellar hemisphere. 2) Old lacunar infarctions in the left basal ganglia and left thalamus. 3) Severe chronic microangiopathic changes and moderate age-related global parenchymal volume loss. Dr. Morales, neurology, is following. The case was discussed with Dr. Reyez who recommended IR biopsy of the thyroid mass and holding Eliquis 2.5 mg BID for 24-48 hours priopr to the biopsy. We have held the Eliquis as of now with the intent that the patient be scheduled for the biopsy . Case was reviewed and discussed with attending physician, Dr. Colon <Jeffrey Colon - Last Filed: 04/14/18 17:50> Objective - Vital Signs/Intake and Output Vital Signs (last 24 hours): Temp Pulse Resp BP Pulse Ox 98 F 76 22 122/78 99 04/14/18 12:00 04/14/18 15:01 04/14/18 15:01 04/14/18 15:01 04/14/18 15:01 Intake and Output: 04/14/18 04/14/18 06:59 18:59 Intake Total 1370 510 Balance 1370 510 - Medications Medications: Current Medications Albuterol/Ipratropium (Duoneb 3 Mg/0.5 Mg (3 Ml) Ud) 3 ml INH RQ6 [facility] Last Admin: 04/14/18 13:26 Dose: 3 ml Apixaban (Eliquis) 2.5 mg PO BID [facility] Last Admin: 04/14/18 09:31 Dose: 2.5 mg Aspirin (Aspirin Chewable) 81 mg PO DAILY [facility] Last Admin: 04/14/18 09:30 Dose: 81 mg Diltiazem HCl (Cardizem) 30 mg PO QID [facility] Last Admin: 04/14/18 17:39 Dose: 30 mg Fluconazole (Diflucan) 100 mg PO DAILY [facility]; Protocol Stop: 04/18/18 23:59 Last Admin: 04/14/18 09:30 Dose: 100 mg Dextrose (Dextrose 5% In Water 1000 Ml) 1,000 mls @ 70 mls/hr IV .[id number] [facility] Last Admin: 04/14/18 10:50 Dose: 70 mls/hr Insulin Aspart (Novolog) 0 unit SC Q6H [facility]; Protocol Last Admin: 04/14/18 12:40 Dose: Not Given Levothyroxine Sodium (Synthroid) 75 mcg PO DAILY@0630 [facility] Last Admin: 04/14/18 07:19 Dose: Not Given Methylprednisolone (Solu-Medrol) 20 mg IVP DAILY [facility] Pantoprazole Sodium (Protonix Inj) 20 mg IVP DAILY [facility] Potassium Chloride (Potassium Chloride Oral Soln) 40 meq PO ONCE ONE Stop: 04/14/18 18:01 Last Admin: 04/14/18 17:38 Dose: 40 meq Rosuvastatin Calcium (Crestor) 5 mg PO HS [facility] Last Admin: 04/13/18 22:13 Dose: 5 mg Vitamin A (Vitamin A & D Oint Ud Foilpak) 0.5 ea TOP Q4 PRN PRN Reason: Dry mouth Last Admin: 04/10/18 16:28 Dose: 0.5 ea - Labs Labs: 04/14/18 07:28 04/14/18 07:28 PT 12.2 SECONDS (9.7-12.2) 04/09/18 19:06 INR 1.1 04/09/18 19:06 APTT 28 SECONDS (21-34) D 04/10/18 01:23 Assessment and Plan (1) Acute respiratory failure with hypoxia and hypercapnia Status: Acute Attending/Attestation - Attestation I have personally seen and examined this patient.: Yes I have fully participated in the care of the patient.: Yes I have reviewed all pertinent clinical information, including history, physical exam and plan: Yes Notes (Text): 04/14/18 17:49 Patient seen and examined intensive care unit. Patient remained a phasic MRI of the brain noted Neurology follow-up Biopsy of thyroid mass and Eliquis on hold Continue diuretics Discontinue antibiotics
--- NOTE | 2018-04-14 17:49 | CP.PCM.CON ---
History of Present Illness - History of Present Illness History of Present Illness: 67 yo woman with history of recent CVA with right sided weakness , recent ACS requiring coronary stents , transferred from rehab when she c/o chest and sternal pain, EMS called in by rehab, intubated in the field She is now cu rrently extubated, follows simple commands, nonverbal and unable to swallow. Work up revealed large right thyroid mass, with mass effect on the trachea and the esophagus, bone scan with diffuse lytic lesions throughout the skeleton, including calvarium, sternum, ribs, spine, femurs. Patient is severely cachectic ( BMI 13 ) aphasic and unable to provide hx at this time ID consulted for yeast in sputum and urine started on Diflucan Review of Systems - Review of Systems Systems not reviewed;Unavailable: Acuity of Condition All systems: reviewed and no additional remarkable complaints except - Constitutional Constitutional: As Per HPI, Anorexia - EENT Eyes: absent: As Per HPI, Blind Spots, Blurred Vision, Change in Vision, Decreased Night Vision, Diplopia, Discharge, Dry Eye, Exophthalmos, Floaters, Irritation, Itchy Eyes, Loss of Peripheral Vision, Pain, Photophobia, Requires Corrective Lenses, Sees Flashes, Spots in Vision, Tunnel Vision, Other Visual Disturbances, Loss of Vision, Other Ears: absent: As Per HPI, Decreased Hearing, Ear Discharge, Ear Pain, Tinnitus, Abnormal Hearing, Disequilibrium, Dizziness, Other Nose/Mouth/Throat: absent: As Per HPI, Epistaxis, Nasal Congestion, Nasal Discharge, Nasal Obstruction, Nasal Trauma, Nose Pain, Post Nasal Drip, Sinus Pain, Sinus Pressure, Bleeding Gums, Change in Voice, Dental Pain, Dry Mouth, Dysphagia, Halitosis, Hoarsness, Lip Swelling, Mouth Lesions, Mouth Pain, Odynophagia, Sore Throat, Throat Swelling, Tongue Swelling, Facial Pain, Neck Pain, Neck Mass, Other - Breasts Breasts: absent: As Per HPI, Change in Shape, Mass, Pain, Nipple Discharge, Nipple Inversion, Skin Changes, Swelling, Other - Cardiovascular Cardiovascular: absent: As Per HPI, Acrocyanosis, Chest Pain, Chest Pain at Rest, Chest Pain with Activity, Claudication, Diaphoresis, Dyspnea, Dyspnea on Exertion, Edema, Irregular Heart Rhythm, Pain Radiating to Arm/Neck/Jaw, Leg Edema, Leg Ulcers, Lightheadedness, Orthopnea, Palpitations, Paroxysmal No cturnal Dyspnea, Pedal Edema, Radiating Pain, Rapid Heart Rate, Slow Heart Rate, Syncope, Other - Respiratory Respiratory: As Per HPI - Gastrointestinal Gastrointestinal: As Per HPI - Genitourinary Genitourinary: absent: As Per HPI, Change in Urinary Stream, Difficulty Urinating, Dysuria, Flank Pain, Hematuria, Pyuria, Nocturia, Urinary Incontinence, Urinary Frequency, Urinary Hesitance, Urinary Urgency, Voiding Freq/Small Amts, Freq UTI, Hx Renal/Bladder Calculi, Hx /Renal Surgery, Bladder Distension, Other - Reproductive: Female Reproductive:Female: absent: As Per HPI, Amenorrhea, Amenorrhea/ Control, Currently Menstual, Cycle <21 Days, Cycle >35 Days, Cycle Variable, Menses 1-7 Days, Menses >/= 8 Days, Menses Variable, Cycle > 4 Weeks Between, No Menses for 6 Months, Heavy Menses, Light Menses, Normal Menses, Spotting Between Cycles, S/P Hysterectomy, Menopausal, Post Menopausal, Premenarche, Abnormal Vaginal Bleeding, Dysmenorrhea, Dyspareunia, Genital Lesions, Genital Pruritis, Pelvic Pain, Prolapse Symptoms, Sexual Dysfunction, Vaginal Discharge, Vaginal Dryness, Vaginal Odor, Vaginal Pruritis, Other - Menstruation Menstruation: absent: As Per HPI, Amenorrhea, Amenorrhea/ Control, Currently Menstual, Cycle <21 Days, Cycle >35 Days, Cycle Variable, Menses 1-7 Days, Menses >/= 8 Days, Menses Variable, Cycle > 4 Weeks Between, No Menses for 6 Months, Heavy Menses, Light Menses, Normal Menses, Spotting Between Cycles, S/P Hysterectomy, Menopausal, Post Menopausal, Premenarche, Abnormal Vaginal Bleeding, Dysmenorrhea, Other - Musculoskeletal Musculoskeletal: absent: As Per HPI, Abnormal Gait, Arthralgias, Atrophy, Back Pain, Deformity, Joint Swelling, Limited Range of Motion, Loss of Height, Muscle Cramps, Muscle Weakness, Myalgias, Neck Pain, Numbness, Radiating Pain into Limb, Stiffness, Tingling, Other - Integumentary Integumentary: absent: As Per HPI, Acne, Alopecia, Bleeding Lesions, Change in Hair, Change in Nails, Change in Pigmentation, Changing Lesions, Dry Skin, Erythema, Furuncle, Hirsutism, Lesions, New Lesions, Non-Healing Lesions, Photosensitivity, Pruritus, Rash, Skin Pain, Skin Ulcer, Sores, Striae, Swelling, Unusual Bruising, Wounds, Jaundice, Other - Neurological Neurological: As Per HPI - Psychiatric Psychiatric: absent: As Per HPI, Abnormal Sleep Pattern, Anhedonia, Anxiety, Auditory Hallucinations, Behavioral Changes, Change in Appetite, Change in Libido, Confusion, Depression, Difficulty Concentrating, Hallucinations, Homicidal Ideation, Hopelessness, Irritability, Memory Loss, Mood Swings, Panic Attacks, Paranoia, Suicidal Ideation, Visual Hallucinations, Tactile Ramu lucinations, Other - Endocrine Endocrine: As Per HPI - Hematologic/Lymphatic Hematologic: As Per HPI Past Patient History - Infectious Disease Hx of Infectious Diseases: None - Past Medical History & Family History Past Medical History?: Yes - Past Social History Smoking Status: Never Smoked Chewing Tobacco Use: No Cigar Use: No Alcohol: None Home Situation {Lives}: With Family - CARDIAC Hx Hypertension: Yes - PULMONARY Hx Chronic Obstructive Pulmonary Disease (COPD): Yes - NEUROLOGICAL Hx Neurological Disorder: No HX Cerebrovascular Accident: Yes - HEENT Hx HEENT Problems: No - RENAL Hx Chronic Kidney Disease: No - ENDOCRINE/METABOLIC Hx Endocrine Disorders: No - HEMATOLOGICAL/ONCOLOGICAL Hx Blood Disorders: No - INTEGUMENTARY Hx Dermatological Problems: No - MUSCULOSKELETAL/RHEUMATOLOGICAL Hx Musculoskeletal Disorders: No Hx Falls: No - GASTROINTESTINAL Hx Gastrointestinal Disorders: No - GENITOURINARY/GYNECOLOGICAL Hx Genitourinary Disorders: No - PSYCHIATRIC Hx Substance Use: No - SURGICAL HISTORY Hx Coronary Stent: Yes - ANESTHESIA Hx Anesthesia: No Meds Allergies/Adverse Reactions: Allergies Allergy/AdvReac Type Severity Reaction Status Date / Time No Known Allergies Allergy Verified 03/25/18 20:59 - Medications Medications: Current Medications Albuterol/Ipratropium (Duoneb 3 Mg/0.5 Mg (3 Ml) Ud) 3 ml INH RQ6 [facility] Last Admin: 04/14/18 13:26 Dose: 3 ml Apixaban (Eliquis) 2.5 mg PO BID [facility] Last Admin: 04/14/18 09:31 Dose: 2.5 mg Aspirin (Aspirin Chewable) 81 mg PO DAILY [facility] Last Admin: 04/14/18 09:30 Dose: 81 mg Diltiazem HCl (Cardizem) 30 mg PO QID [facility] Last Admin: 04/14/18 17:39 Dose: 30 mg Fluconazole (Diflucan) 100 mg PO DAILY [facility]; Protocol Stop: 04/18/18 23:59 Last Admin: 04/14/18 09:30 Dose: 100 mg Dextrose (Dextrose 5% In Water 1000 Ml) 1,000 mls @ 70 mls/hr IV .[id number] [facility] Last Admin: 04/14/18 10:50 Dose: 70 mls/hr Insulin Aspart (Novolog) 0 unit SC Q6H [facility]; Protocol Last Admin: 04/14/18 12:40 Dose: Not Given Levothyroxine Sodium (Synthroid) 75 mcg PO DAILY@0630 [facility] Last Admin: 04/14/18 07:19 Dose: Not Given Methylprednisolone (Solu-Medrol) 20 mg IVP DAILY [facility] Pantoprazole Sodium (Protonix Inj) 20 mg IVP DAILY [facility] Potassium Chloride (Potassium Chloride Oral Soln) 40 meq PO ONCE ONE Stop: 04/14/18 18:01 Last Admin: 04/14/18 17:38 Dose: 40 meq Rosuvastatin Calcium (Crestor) 5 mg PO HS [facility] Last Admin: 04/13/18 22:13 Dose: 5 mg Vitamin A (Vitamin A & D Oint Ud Foilpak) 0.5 ea TOP Q4 PRN PRN Reason: Dry mouth Last Admin: 04/10/18 16:28 Dose: 0.5 ea Physical Exam - Constitutional Appears: No Acute Distress, Confused, Cachectic, Chronically Ill - Head Exam Head Exam: ATRAUMATIC, NORMAL INSPECTION, NORMOCEPHALIC - Eye Exam Eye Exam: EOMI, PERRL. absent: Nystagmus, Scleral icterus - ENT Exam ENT Exam: Mucous Membranes Dry, Normal External Ear Exam, Normal Oropharynx - Neck Exam Neck exam: Negative for: Lymphadenopathy - Respiratory Exam Respiratory Exam: Decreased Breath Sounds, Prolonged Expiratory Phase, Rhonchi - Cardiovascular Exam Cardiovascular Exam: REGULAR RHYTHM, +S1, +S2 - GI/Abdominal Exam GI & Abdominal Exam: Diminished Bowel Sounds, Soft. absent: Distended, Pulsatile Mass, Tenderness - Rectal Exam Rectal Exam: Deferred - Exam Exam: NORMAL INSPECTION - Extremities Exam Extremities exam: Negative for: pedal edema - Back Exam Back exam: absent: CVA tenderness (L), CVA tenderness (R), paraspinal tenderness - Neurological Exam Neurological exam: Altered - Psychiatric Exam Psychiatric exam: Depressed - Skin Skin Exam: Dry Results - Vital Signs Recent Vital Signs: Last Vital Signs Temp 98 F 04/14/18 12:00 Pulse 76 04/14/18 15:01 Resp 22 04/14/18 15:01 BP 122/78 04/14/18 15:01 Pulse Ox 99 04/14/18 15:01 - Labs Result Diagrams: 04/14/18 07:28 04/14/18 07:28 Labs: Laboratory Results - last 24 hr 04/13/18 04/14/18 04/14/18 17:50 00:15 06:07 WBC RBC Hgb Hct MCV MCH MCHC RDW Plt Count MPV Neut % (Auto) Lymph % (Auto) [place] % (Auto) Eos % (Auto) Baso % (Auto) Neut # (Auto) Lymph # (Auto) [place] # (Auto) Eos # (Auto) Baso # (Auto) Neutrophils % (Manual) Band Neutrophils % Lymphocytes % (Manual) Monocytes % (Manual) Nucleated RBC % Platelet Estimate Large Platelets Target Cells Sodium Potassium Chloride Carbon Dioxide Anion Gap BUN Creatinine Est GFR ( Amer) Est GFR (Non-Af Amer) POC Glucose (mg/dL) 174 H 206 H 183 H Random Glucose Calcium Phosphorus Magnesium Total Bilirubin AST ALT Alkaline Phosphatase Total Protein Albumin Globulin Albumin/Globulin Ratio Alpha Fetoprotein Carcinoembryonic Ag CA 19-9 Antigen CA 125 Antigen 04/14/18 04/14/18 04/14/18 07:28 07:28 07:28 WBC 16.5 H RBC 3.11 L Hgb 9.9 L Hct 29.8 L MCV 95.8 MCH 31.7 H MCHC 33.2 RDW 14.3 Plt Count 243 MPV 9.8 Neut % (Auto) 90.0 H Lymph % (Auto) 3.6 L [place] % (Auto) 6.1 Eos % (Auto) 0.1 Baso % (Auto) 0.2 Neut # (Auto) 14.8 H Lymph # (Auto) 0.6 L [place] # (Auto) 1.0 H Eos # (Auto) 0.0 Baso # (Auto) 0.0 Neutrophils % (Manual) 86 H Band Neutrophils % 3 H Lymphocytes % (Manual) 3 L Monocytes % (Manual) 8 Nucleated RBC % 1 H Platelet Estimate Normal Large Platelets Present Target Cells Slight Sodium 152 H Potassium 3.0 L Chloride 119 H Carbon Dioxide 29 Anion Gap 7 L BUN 91 H Creatinine 2.7 H Est GFR ( Amer) 21 Est GFR (Non-Af Amer) 17 POC Glucose (mg/dL) Random Glucose 175 H Calcium 10.3 Phosphorus 3.2 Magnesium 3.0 H Total Bilirubin 0.9 AST 23 ALT 27 Alkaline Phosphatase 94 Total Protein 6.3 Albumin 3.4 L Globulin 2.9 Albumin/Globulin Ratio 1.2 Alpha Fetoprotein 2.8 Carcinoembryonic Ag 1.7 CA 19-9 Antigen 77399 H CA 125 Antigen 2130 H 04/14/18 11:31 WBC RBC Hgb Hct MCV MCH MCHC RDW Plt Count MPV Neut % (Auto) Lymph % (Auto) [place] % (Auto) Eos % (Auto) Baso % (Auto) Neut # (Auto) Lymph # (Auto) [place] # (Auto) Eos # (Auto) Baso # (Auto) Neutrophils % (Manual) Band Neutrophils % Lymphocytes % (Manual) Monocytes % (Manual) Nucleated RBC % Platelet Estimate Large Platelets Target Cells Sodium Potassium Chloride Carbon Dioxide Anion Gap BUN Creatinine Est GFR ( Amer) Est GFR (Non-Af Amer) POC Glucose (mg/dL) 177 H Random Glucose Calcium Phosphorus Magnesium Total Bilirubin AST ALT Alkaline Phosphatase Total Protein Albumin Globulin Albumin/Globulin Ratio Alpha Fetoprotein Carcinoembryonic Ag CA 19-9 Antigen CA 125 Antigen Assessment & Plan (1) Acute respiratory failure with hypoxia and hypercapnia Status: Acute (2) Metastatic cancer Status: Acute (3) COPD exacerbation Status: Acute (4) Cachexia Status: Acute (5) CVA (cerebral vascular accident) Status: Acute - Assessment and Plan (Free Text) Assessment: cultures reviewed antibiotics ordered severe immunocompromised state likely due to malignancy/ malnutrition poor prognosis
[2018-04-14] MEDS ORDERED: Potassium Chloride 20 mEq/15 ml LIQ UD PO ONE ×2 (18:00)
--- NOTE | 2018-04-14 18:14 | PN ---
DATE: 04/14/2018 ENDOCRINOLOGY FOLLOWUP NOTE LOCATION: In ICU, room 14 A. SUBJECTIVE: This is a 67-year-old female with recent acute CVA and remains somnolent with confusion and slurred speech and is now being followed closely also for metabolic management. She remains clinically euthyroid, but biochemically has early hypothyroidism and has been started on levothyroxine replacement therapy starting this morning as ordered. Her glucose values are fluctuating with glucose levels ranging from 183 to 206 mg/dL. Her chemistry showed a BUN of 91, sodium 152, potassium 3, chloride 119, CO2 of 29, glucose 175, and creatinine 2.7. Her thyroid ultrasound showed the presence of dominant nodule in the right lobe measuring 4.1 x 4 cm with two other smaller nodules with calcifications as noted. Her right lobe measured 6.9 x 3.9 cm which is extremely enlarged and her left lobe measured 3.7 x 1.8 cm. ASSESSMENT: This is a 67-year-old female with acute cerebrovascular accident and expressive aphasia with concomitant clinical and radiologic evidence of a multinodular goiter with a dominant right thyroid nodule as noted. However, the biggest concern is the patient also has diffuse bony metastasis as noted and is being followed closely by Hematology/Oncology at this time. However, the most common differentiated thyroid carcinomas such as papillary and follicular cancers do not have diffuse bone metastasis as the ultimate presentation as noted, unless we are dealing with a very rare anaplastic thyroid carcinoma. PLAN OF MANAGEMENT: We will highly recommend a fine needle aspiration biopsy of the dominant right thyroid nodule with this inpatient hospital stay and this fine needle aspiration biopsy results will confirm and/or indicate the presence of any thyroid related malignancies at this time. In the meantime, we will continue the levothyroxine given as 75 mcg once daily in the morning as ordered. We will obtain serial chemistries and supplement accordingly as needed. We will follow. Akiko Erazo MD
[2018-04-14] MEDS: Fluconazole IV 200mg/100 ml NS 100 ML IVPB SCH (18:24)
[2018-04-14 19:16] LABS: THYROGLOBULIN 0.1 ng/mL (2.8-40.9)
[2018-04-15] MEDS: (Novolog) Insulin Aspart, Recombinant 100 u/ml 10 ml vial SC SCH ×5 (00:15→23:49)
[2018-04-15] MEDS: Albuterol-Ipratrop 3 mg / 0.5 (3 ml) UD INH SCH (01:21)
--- NOTE | 2018-04-15 03:07 | PN ---
DATE: 04/14/2018 LOCATION: The patient is located in ICU 14A. REQUESTED BY: Dr. Libia Brady. REASON FOR RENAL CONSULTATION: Acute renal failure, hypernatremia, for further evaluation. SUBJECTIVE: Mrs. Gonzalez is about 67-year-old elderly [place]ian female with a past medical history significant for COPD, CAD, status post stent placement, CVA, who was recently admitted on 04/09/2018 after discharged from the hospital on 04/06/2018 for COPD exacerbation and now the patient was admitted with sudden onset of altered mental status and respiratory arrest requiring intubation in the field and admitted to ICU, status post extubation 2 days ago; with vigorous diuresis, serum sodium increased to 155 and also the patient went into acute renal failure, status post extubation. The patient is not in acute distress, awake, following simple commands. No chest pain, no palpitation. No fever. No cough. No abdominal pain. No nausea, vomiting, diarrhea. PHYSICAL EXAMINATION: VITAL SIGNS: This morning, blood pressure 124/79, pulse 75, respirations 16, saturation 100% and temperature 97.4. GENERAL: Mrs. Gonzalez is a 67-year-old elderly, very thin-built, cachectic female not in distress. HEENT: Pupils normal, react to light and accommodation. Conjunctivae pink. Sclerae anicteric. Tongue is dry. Trachea is midline. LUNGS: Symmetric on both sides. Bilateral breath sounds present. No crackles. CARDIOVASCULAR SYSTEM: [place] at the fifth intercostal space, midclavicular line. S1, S2 audible. No murmur or gallop. ABDOMEN: Normal in appearance. Soft, tympanitic. No guarding. No rigidity. No hepatosplenomegaly. CENTRAL NERVOUS SYSTEM: The patient is awake, following simple commands. Sensory system is grossly within normal limits. Motor system, moving all extremities. EXTREMITIES: No cyanosis, no clubbing, no edema. SKIN: Turgor is very poor. CURRENT MEDICATIONS: Include as follows: Aspirin 81 mg daily, Cardizem 30 mg p.o. 4 times daily, Crestor 5 mg at bedtime, D5W at 70 mL/hour, fluconazole 200 mg IV every 24 hours, DuoNeb inhaler, Eliquis on hold, Protonix 20 mg IV daily, Solu-Medrol 20 mg IV daily, levothyroxine 75 mcg daily, vitamin E and D ointment. LABORATORY DATA: Includes as follows: WBC 16.5, hemoglobin 9.9, hematocrit is 29.8, platelets 243, sodium 152, potassium is 3, chloride 119, CO2 of 29, BUN 91, creatinine 2.7, glucose 175, calcium 10.3, phosphorus 3.2 and magnesium 3.0. Total bili 0.9, AST 23, ALT 27, alkaline phosphatase 94, total protein 6.3, albumin is 3.4 and alpha-fetoprotein is 2.8 and CEA is 1.7. CA19-9 is 13,200 and CA-125 is 2130. ASSESSMENT AND PLAN: In summary, Mrs. Gonzalez is a 67-year-old elderly, very thin-built, cachectic [place] female with history of hypertension, cerebrovascular accident, coronary artery disease, chronic obstructive pulmonary disease, was admitted with respiratory failure, status post extubation with increased blood urea nitrogen and creatinine, increased serum sodium and also metastatic lesions on the bones of her vertebrae and possible in the lungs with elevated CA19-9 and CA-125. 1. Hypernatremia secondary to intravascular volume depletion secondary to vigorous diuresis. 2. Acute renal failure secondary to vigorous diuresis and dehydration and intravascular volume depletion. 3. Metastatic disease, source is not clear, rule out pancreatic carcinoma, rule out thyroid malignancy, rule out ovarian carcinoma. We will continue intravenous fluids D5W at 70 mL/hour and serum sodium is improving and supplement potassium as needed as per Intensive Care Unit. Continue to monitor basic metabolic profile. We will follow up with you. Thank you for allowing me to participate in your patient's care. Overall prognosis is very poor and follow up with Hematology-Oncology, Dr. Reyez. Jose Angel Adams MD
[2018-04-15 06:10] LABS: BASO % 0.2 % (0.0-2.0); EOS % 0.1 % (0.0-4.0); HEMOGLOBIN 8.9 g/dL (11.0-16.0); LYMPH # 0.8 K/uL (1.0-4.3); MEAN CELL VOLUME 96.5 fL (81.0-99.0); MEAN CORPUSCULAR HEMOGLOBIN 30.4 pg (27.0-31.0); MEAN CORPUSCULAR HGB CONC 31.5 g/dL (33.0-37.0); MEAN PLATELET VOLUME 10.2 fL (7.2-11.7); MONO # 0.9 K/uL (0.0-0.8); MONO % 4.7 % (0.0-10.0); NRBC % 0.2 % (0.0-2.0); PLATELET COUNT 235 K/uL (130-400); RBC 2.91 Mil/uL (3.80-5.20); RED CELL DISTRIBUTION WIDTH 14.2 % (11.5-14.5); WHITE BLOOD COUNT 19.8 K/uL (4.8-10.8)
[2018-04-15 06:31] LABS: ALB/GLOB RATIO 1.1 (1.0-2.1); ALBUMIN 3.2 g/dL (3.5-5.0)
--- NOTE | 2018-04-15 06:55 | CP.PCM.PN ---
Subjective - Date & Time of Evaluation Date of Evaluation: 04/14/18 Time of Evaluation: 17:10 - Subjective Subjective: Patient seen and evaluated More comfortable Paraxysmal A Fib S/P CVA with expresiive aphasia Physical Examination - Constitutional Appears: No Acute Distress - Head Exam Head Exam: ATRAUMATIC, NORMOCEPHALIC - ENT Exam ENT Exam: Mucous Membranes Dry - Neck Exam Neck Exam: Full ROM. absent: Tenderness - Respiratory Exam Respiratory Exam: Decreased Breath Sounds (with slight congestion but improving sounds ), NORMAL BREATHING PATTERN - Cardiovascular Exam Cardiovascular Exam: REGULAR RHYTHM - GI/Abdominal Exam GI & Abdominal Exam: Soft, Normal Bowel Sounds. absent: Distended, Tenderness - Back Exam Back Exam: Full ROM - Neurological Exam Neurological Exam: Alert, Awake, Oriented x3 (weak righ side, slurred speech weak right corner mouth,) - Psychiatric Exam Psychiatric exam: Normal Affect, Normal Mood - Skin Skin Exam: Intact, Normal Color Assessment and Plan - Assessment and Plan (Free Text) Assessment: Patient with history of Hypertension with recent CVA-with right sided weakness CAD post stent on plavix aspirin PT Hypertension and Anxiety -adjust meds accordingly COPD/Emphysema admitted for Respiratory failure- with CXR_CHF, intubated in the field right clavicular fracture -follow up ortho extubated newCVA- further Neuro/cardio evaluation ongoing Metastatic Thyroid Ca Patient with paraxysmal A Fib On Eliquis 2.5 mg po bid Continue ASA 81 daily Plavix Stopped Objective - Vital Signs/Intake and Output Vital Signs (last 24 hours): Temp Pulse Resp BP Pulse Ox 97.8 F 74 22 126/82 98 04/15/18 04:00 04/15/18 04:01 04/15/18 04:01 04/15/18 04:01 04/15/18 04:01 Intake and Output: 04/14/18 04/15/18 18:59 06:59 Intake Total 790 1000 Balance 790 1000 - Medications Medications: Current Medications Apixaban (Eliquis) 2.5 mg PO BID [facility] Last Admin: 04/14/18 09:31 Dose: 2.5 mg Aspirin (Aspirin Chewable) 81 mg PO DAILY [facility] Last Admin: 04/14/18 09:30 Dose: 81 mg Diltiazem HCl (Cardizem) 30 mg PO QID [facility] Last Admin: 04/14/18 21:16 Dose: 30 mg Dextrose (Dextrose 5% In Water 1000 Ml) 1,000 mls @ 70 mls/hr IV .[id number] [facility] Last Admin: 04/15/18 03:01 Dose: 70 mls/hr Fluconazole (Diflucan Iv 200 Mg/100 Ml Ns) 100 mls @ 100 mls/hr IVPB Q24H [facility]; Protocol Last Admin: 04/14/18 18:24 Dose: 100 mls/hr Insulin Aspart (Novolog) 0 unit SC Q6H [facility]; Protocol Last Admin: 04/15/18 00:15 Dose: Not Given Levothyroxine Sodium (Synthroid) 75 mcg PO DAILY@0630 [facility] Last Admin: 04/14/18 07:19 Dose: Not Given Methylprednisolone (Solu-Medrol) 20 mg IVP DAILY [facility] Pantoprazole Sodium (Protonix Inj) 20 mg IVP DAILY [facility] Rosuvastatin Calcium (Crestor) 5 mg PO HS [facility] Last Admin: 04/14/18 21:16 Dose: 5 mg Vitamin A (Vitamin A & D Oint Ud Foilpak) 0.5 ea TOP Q4 PRN PRN Reason: Dry mouth Last Admin: 04/10/18 16:28 Dose: 0.5 ea - Labs Labs: 04/15/18 06:00 04/15/18 06:00 PT 12.2 SECONDS (9.7-12.2) 04/09/18 19:06 INR 1.1 04/09/18 19:06 APTT 28 SECONDS (21-34) D 04/10/18 01:23
[2018-04-15] MEDS: Levothyroxine 75 MCG TAB PO SCH (07:00)
--- NOTE | 2018-04-15 07:30 | CP.PCM.PN ---
Subjective - Date & Time of Evaluation Date of Evaluation: 04/15/18 Time of Evaluation: 07:10 - Subjective Subjective: Progress Note for Dr. Erazo (Endocrine) Service Herbert Rogers DO, IM PGY-3 Patient seen and examined at bedside this AM in the ICU. Restless and mildly confused overnight, required re-orienting by staff, and given 1mg Morphine this AM. Sleeping comfortably at time of exam, but wearing mitts. Failed swallow eval again yesterday, so NGT placed for oral access and feeds. Eliquis held by ICU yesterday, pending IR biopsy of thyroid today. Of note, Brain MRI yesterday obtained, concerning for new acute/subacute L-sided infarcts. Objective - Vital Signs/Intake and Output Vital Signs (last 24 hours): Temp Pulse Resp BP Pulse Ox 97.8 F 74 22 126/82 98 04/15/18 04:00 04/15/18 04:01 04/15/18 04:01 04/15/18 04:01 04/15/18 04:01 Intake and Output: 04/15/18 04/15/18 06:59 18:59 Intake Total 1000 Balance 1000 - Medications Medications: Current Medications Apixaban (Eliquis) 2.5 mg PO BID [facility] Last Admin: 04/14/18 09:31 Dose: 2.5 mg Aspirin (Aspirin Chewable) 81 mg PO DAILY [facility] Last Admin: 04/14/18 09:30 Dose: 81 mg Diltiazem HCl (Cardizem) 30 mg PO QID [facility] Last Admin: 04/14/18 21:16 Dose: 30 mg Dextrose (Dextrose 5% In Water 1000 Ml) 1,000 mls @ 70 mls/hr IV .[id number] [facility] Last Admin: 04/15/18 03:01 Dose: 70 mls/hr Fluconazole (Diflucan Iv 200 Mg/100 Ml Ns) 100 mls @ 100 mls/hr IVPB Q24H [facility]; Protocol Last Admin: 04/14/18 18:24 Dose: 100 mls/hr Insulin Aspart (Novolog) 0 unit SC Q6H [facility]; Protocol Last Admin: 04/15/18 06:55 Dose: Not Given Levothyroxine Sodium (Synthroid) 75 mcg PO DAILY@0630 [facility] Last Admin: 04/15/18 07:00 Dose: 75 mcg Methylprednisolone (Solu-Medrol) 20 mg IVP DAILY [facility] Pantoprazole Sodium (Protonix Inj) 20 mg IVP DAILY [facility] Rosuvastatin Calcium (Crestor) 5 mg PO HS [facility] Last Admin: 04/14/18 21:16 Dose: 5 mg Vitamin A (Vitamin A & D Oint Ud Foilpak) 0.5 ea TOP Q4 PRN PRN Reason: Dry mouth Last Admin: 04/10/18 16:28 Dose: 0.5 ea - Labs Labs: 04/15/18 06:00 04/15/18 06:00 PT 12.2 SECONDS (9.7-12.2) 04/09/18 19:06 INR 1.1 04/09/18 19:06 APTT 28 SECONDS (21-34) D 04/10/18 01:23 - Additional Findings Additional findings: - Constitutional Appears: lethargic/somnolent - Head Exam Head Exam: ATRAUMATIC, NORMAL INSPECTION, NORMOCEPHALIC - Eye Exam Eye Exam: Normal appearance. absent: Conjunctival injection, Scleral icterus - ENT Exam ENT Exam: Mucous Membranes Moist, Dried blood noted on lower lip - Neck Exam Neck Exam: Thyromegaly (R>L, bulge from neck appreciated) - Respiratory Exam Respiratory Exam: Clear to Ausculation Bilateral, NORMAL BREATHING PATTERN. absent: Accessory Muscle Use, Chest Wall Tenderness, Decreased Breath Sounds, Rales, Rhonchi, Wheezes - Cardiovascular Exam Cardiovascular Exam: REGULAR RHYTHM, RRR, +S1, +S2. absent: Bradycardia, Tachycardia, Irregular Rhythm, JVD, +S4 - GI/Abdominal Exam GI & Abdominal Exam: Soft, Normal Bowel Sounds. absent: Tenderness - Extremities Exam Extremities Exam: absent: Calf Tenderness, Pedal Edema - Neurological Exam Additional comments: somnolent/lethargic, some spontaneous movements appreciated - Psychiatric Exam Additional comments: somnolent/lethargic - Skin Skin Exam: Dry, Intact, Normal Color, Warm Assessment and Plan - Assessment and Plan (Free Text) Assessment: This is a 67 yo F with PMH of HTN, Anxiety, HLD, and recently diagnosed CVA with residual L sided weakness, COPD, and CAD s/p stenting who presented in respiratory distress, now extubated, but found to have extensive nodules in the thyroid and extensive lytic bone lesions on imaging, highly concerning for cancer. Endocrine was consulted for the multinodular thyroid gland. Plan: 1) Respiratory distress: resolved, extubated, now on room air 2) Multinodular thyroid gland with extensive bone lytic lesions, concerning for likely metastatic disease 3) COPD 4) CAD s/p stenting 2 weeks prior 5) New CVA overlying recent CVA, residual expressive aphasia/left-sided weakness form prior CVA 6) DEVIN 7) Hypothyroidism -TSH elevated at 10.2 T4 low at 3.83, and Free T4 low at 0.59; continue synthroid 75mcg daily -thyroid antibody panel obtained, notable for positive thyroglobulin antibody, consistent with suspected thyroid cancer -Onc consulted by primary, appreciate their insights; agree with them that pt w ill likely need IR biopsy of the thyroid nodules, IR consulted -pending IR biopsy today, as per ICU team -prognosis is poor given likely metastatic disease, new infarcts Will discuss with attending, Dr. Erazo. Further recs as per attending.
[2018-04-15 08:36] LABS: LYMPHOCYTE 1 % (20-40); MONOCYTE 5 % (0-10); NEUTROPHIL 94 % (50-75); PLATELET ESTIMATE NORMAL (NORMAL); TOTAL CELLS COUNTED 100
[2018-04-15] MEDS: MethylPREDNISolone 40 mg Vial IVP SCH (09:14)
[2018-04-15] MEDS: Vitamins A & D Oint UD Foilpak TOP PRN (09:27)
--- NOTE | 2018-04-15 10:05 | PCM.IRP ---
History of Present Illness - History of Present Illness History of Present Illness: IR requested to perform FNA of thyroid nodule. US reviewed. Pt with complex thyroid nodule. Pt will be scheduled for FNA once discharged from the ICU. Objective - Vital Signs/Intake and Output Vital Signs (last 24 hours): Vital Signs - 24 hr 04/14/18 04/14/18 04/14/18 11:00 11:52 12:00 Temperature 98 F Pulse Rate 67 69 63 Respiratory 17 20 19 Rate Blood Pressure 127/79 133/74 106/65 O2 Sat by Pulse 99 95 99 Oximetry 04/14/18 04/14/18 04/14/18 13:00 14:00 14:01 Temperature Pulse Rate 71 71 71 Respiratory 18 20 21 Rate Blood Pressure 106/71 92/61 L O2 Sat by Pulse 99 100 Oximetry 04/14/18 04/14/18 04/14/18 14:02 14:04 14:37 Temperature Pulse Rate 71 64 77 Respiratory 20 19 12 Rate Blood Pressure 89/59 L 91/60 L 121/77 O2 Sat by Pulse 99 99 100 Oximetry 04/14/18 04/14/18 04/14/18 15:00 15:01 16:00 Temperature 97.4 F L Pulse Rate 79 76 67 Respiratory 21 22 17 Rate Blood Pressure 122/78 108/70 O2 Sat by Pulse 99 99 100 Oximetry 04/14/18 04/14/18 04/14/18 17:00 17:39 18:00 Temperature Pulse Rate 88 75 88 Respiratory 21 16 21 Rate Blood Pressure 141/84 124/79 O2 Sat by Pulse 100 100 99 Oximetry 04/14/18 04/14/18 04/14/18 18:04 19:00 19:02 Temperature Pulse Rate 94 H 88 87 Respiratory 20 22 25 H Rate Blood Pressure 134/106 H 115/88 O2 Sat by Pulse 98 98 100 Oximetry 04/14/18 04/14/18 04/14/18 20:00 20:01 21:00 Temperature 98 F Pulse Rate 83 82 81 Respiratory 20 15 17 Rate Blood Pressure 127/73 O2 Sat by Pulse 99 100 100 Oximetry 04/14/18 04/14/18 04/14/18 21:01 22:00 22:02 Temperature Pulse Rate 80 81 80 Respiratory 20 25 H 22 Rate Blood Pressure 123/79 122/101 H O2 Sat by Pulse 100 98 99 Oximetry 04/14/18 04/14/18 04/15/18 23:00 23:01 00:00 Temperature 97.4 F L Pulse Rate 64 64 75 Respiratory 22 22 16 Rate Blood Pressure 84/51 L 127/76 O2 Sat by Pulse 96 92 L 93 L Oximetry 04/15/18 04/15/18 04/15/18 00:29 01:00 01:02 Temperature Pulse Rate 82 80 85 Respiratory 25 H 26 H 29 H Rate Blood Pressure 133/79 O2 Sat by Pulse 99 98 93 L Oximetry 04/15/18 04/15/18 04/15/18 02:00 02:01 03:00 Temperature Pulse Rate 63 65 76 Respiratory 20 20 20 Rate Blood Pressure 92/58 L O2 Sat by Pulse 96 96 92 L Oximetry 04/15/18 04/15/18 04/15/18 03:01 04:00 04:01 Temperature 97.8 F Pulse Rate 71 61 74 Respiratory 19 19 22 Rate Blood Pressure 119/72 126/82 O2 Sat by Pulse 94 L 98 98 Oximetry 04/15/18 04/15/18 04/15/18 05:00 05:01 06:00 Temperature Pulse Rate 77 77 69 Respiratory 14 16 19 Rate Blood Pressure 134/81 O2 Sat by Pulse 100 100 100 Oximetry 04/15/18 04/15/18 04/15/18 06:01 07:00 07:01 Temperature Pulse Rate 78 76 75 Respiratory 15 18 21 Rate Blood Pressure 139/82 120/73 O2 Sat by Pulse 100 96 92 L Oximetry 04/15/18 04/15/18 08:00 09:04 Temperature 97.4 F L Pulse Rate 77 83 Respiratory 18 16 Rate Blood Pressure 112/65 127/81 O2 Sat by Pulse 100 Oximetry Intake and Output (last 12 hours): Intake & Output 04/14/18 04/15/18 04/15/18 18:59 06:59 18:59 Intake Total 790 1200 500 Output Total 0 Balance 790 1200 500 Weight 78 lb Intake: Intake, IV Amount 700 840 210 Right Antecubital 700 840 210 Tube Feeding 90 360 110 Other 180 Output: Emesis 0 Other: # Voids Urethral ([place]) 1 1 0 # Bowel Movements 0 0 0 - Medications Medications: Current Medications Apixaban (Eliquis) 2.5 mg PO BID [facility] Last Admin: 04/14/18 09:31 Dose: 2.5 mg Aspirin (Aspirin Chewable) 81 mg PO DAILY [facility] Last Admin: 04/15/18 09:13 Dose: 81 mg Diltiazem HCl (Cardizem) 30 mg PO QID [facility] Last Admin: 04/15/18 09:13 Dose: 30 mg Dextrose (Dextrose 5% In Water 1000 Ml) 1,000 mls @ 70 mls/hr IV .[id number] [facility] Last Admin: 04/15/18 03:01 Dose: 70 mls/hr Fluconazole (Diflucan Iv 200 Mg/100 Ml Ns) 100 mls @ 100 mls/hr IVPB Q24H [facility]; Protocol Last Admin: 04/14/18 18:24 Dose: 100 mls/hr Insulin Aspart (Novolog) 0 unit SC Q6H [facility]; Protocol Last Admin: 04/15/18 06:55 Dose: Not Given Levothyroxine Sodium (Synthroid) 75 mcg PO DAILY@0630 [facility] Last Admin: 04/15/18 07:00 Dose: 75 mcg Methylprednisolone (Solu-Medrol) 20 mg IVP DAILY [facility] Last Admin: 04/15/18 09:14 Dose: 20 mg Pantoprazole Sodium (Protonix Inj) 20 mg IVP DAILY [facility] Last Admin: 04/15/18 09:14 Dose: 20 mg Rosuvastatin Calcium (Crestor) 5 mg PO HS [facility] Last Admin: 04/14/18 21:16 Dose: 5 mg Vitamin A (Vitamin A & D Oint Ud Foilpak) 0.5 ea TOP Q4 PRN PRN Reason: Dry mouth Last Admin: 04/15/18 09:27 Dose: 0.5 ea - Labs Labs (last 24 hours): Laboratory Results - last 24 hr 04/13/18 04/14/18 04/14/18 06:09 07:28 11:31 WBC RBC Hgb Hct MCV MCH MCHC RDW Plt Count MPV Neut % (Auto) Lymph % (Auto) [place] % (Auto) Eos % (Auto) Baso % (Auto) Neut # (Auto) Lymph # (Auto) [place] # (Auto) Eos # (Auto) Baso # (Auto) Neutrophils % (Manual) Lymphocytes % (Manual) Monocytes % (Manual) Platelet Estimate RBC Morphology Sodium Potassium Chloride Carbon Dioxide Anion Gap BUN Creatinine Est GFR ( Amer) Est GFR (Non-Af Amer) POC Glucose (mg/dL) 177 H Random Glucose Calcium Phosphorus Magnesium Total Bilirubin AST ALT Alkaline Phosphatase Total Protein Albumin Globulin Albumin/Globulin Ratio CA 19-9 Antigen 09151 H Thyroglobulin, Quant 0.1 L Thyroperoxidase Ab <1 Thyroglobulin Antibody >1000 H HIV 1&2 Antibody Screen 04/14/18 04/14/18 04/15/18 18:22 23:58 06:00 WBC 19.8 H RBC 2.91 L Hgb 8.9 L Hct 28.1 L MCV 96.5 MCH 30.4 MCHC 31.5 L RDW 14.2 Plt Count 235 MPV 10.2 Neut % (Auto) 91.0 H Lymph % (Auto) 4.0 L [place] % (Auto) 4.7 Eos % (Auto) 0.1 Baso % (Auto) 0.2 Neut # (Auto) 18.0 H Lymph # (Auto) 0.8 L [place] # (Auto) 0.9 H Eos # (Auto) 0.0 Baso # (Auto) 0.0 Neutrophils % (Manual) 94 H Lymphocytes % (Manual) 1 L Monocytes % (Manual) 5 Platelet Estimate Normal RBC Morphology Normal Sodium Potassium Chloride Carbon Dioxide Anion Gap BUN Creatinine Est GFR ( Amer) Est GFR (Non-Af Amer) POC Glucose (mg/dL) 231 H 200 H Random Glucose Calcium Phosphorus Magnesium Total Bilirubin AST ALT Alkaline Phosphatase Total Protein Albumin Globulin Albumin/Globulin Ratio CA 19-9 Antigen Thyroglobulin, Quant Thyroperoxidase Ab Thyroglobulin Antibody HIV 1&2 Antibody Screen 04/15/18 04/15/18 04/15/18 06:00 06:00 06:56 WBC RBC Hgb Hct MCV MCH MCHC RDW Plt Count MPV Neut % (Auto) Lymph % (Auto) [place] % (Auto) Eos % (Auto) Baso % (Auto) Neut # (Auto) Lymph # (Auto) [place] # (Auto) Eos # (Auto) Baso # (Auto) Neutrophils % (Manual) Lymphocytes % (Manual) Monocytes % (Manual) Platelet Estimate RBC Morphology Sodium 149 H Potassium 4.1 Chloride 119 H Carbon Dioxide 24 Anion Gap 10 BUN 81 H Creatinine 1.6 H Est GFR ( Amer) 39 Est GFR (Non-Af Amer) 32 POC Glucose (mg/dL) 158 H Random Glucose 150 H Calcium 10.0 Phosphorus 2.6 Magnesium 2.7 H Total Bilirubin 0.5 AST 26 ALT 30 Alkaline Phosphatase 88 Total Protein 5.9 L Albumin 3.2 L Globulin 2.8 Albumin/Globulin Ratio 1.1 CA 19-9 Antigen Thyroglobulin, Quant Thyroperoxidase Ab Thyroglobulin Antibody HIV 1&2 Antibody Screen Negative
--- NOTE | 2018-04-15 10:05 | PN ---
DATE: 04/15/2018 TIME OF EVALUATION: 07:20 a.m. NEUROLOGICAL PROBLEM: Large vessel ischemic process mostly on left posterior cerebral artery distribution from cardioembolic phenomena (paroxysmal atrial fibrillation). PHYSICAL EXAMINATION: VITAL SIGNS: Blood pressure 126/82, mean arterial pressure of 97, respiratory rate 22, pulse rate is 74, temperature 97.8. The patient is awake, confused, and moving her left side more than right side. Examination, significant appendicular dysmetria noted on her left side. Her MRI been reviewed showed [employer] territory ischemic process over medial occipital lobe, splenium of the corpus callosum, and symptoms of semiovale and left cerebellum. The patient was placed on Eliquis, been onhold. The patient is scheduled to have biopsy of the thyroid gland to rule out any primary cancer, could be the metastatic process on the bone. The Eliquis should be resumed following biopsy procedure. The patient's condition been discussed with the nurses. Andrew Castro MD
--- NOTE | 2018-04-15 10:20 | CP.PCM.PN ---
Subjective - Date & Time of Evaluation Date of Evaluation: 04/15/18 Time of Evaluation: 10:20 - Subjective Subjective: pt is seen and examined, follow up consult is dictated #[id number] consider ct scan of abd/pelvis r/o pancreatic ca/ ovarian ca Objective - Vital Signs/Intake and Output Vital Signs (last 24 hours): Temp Pulse Resp BP Pulse Ox 97.4 F L 83 16 127/81 100 04/15/18 08:00 04/15/18 09:04 04/15/18 09:04 04/15/18 09:04 04/15/18 08:00 Intake and Output: 04/15/18 04/15/18 06:59 18:59 Intake Total 1200 500 Output Total 0 Balance 1200 500 - Medications Medications: Current Medications Apixaban (Eliquis) 2.5 mg PO BID [facility] Last Admin: 04/14/18 09:31 Dose: 2.5 mg Aspirin (Aspirin Chewable) 81 mg PO DAILY [facility] Last Admin: 04/15/18 09:13 Dose: 81 mg Diltiazem HCl (Cardizem) 30 mg PO QID [facility] Last Admin: 04/15/18 09:13 Dose: 30 mg Dextrose (Dextrose 5% In Water 1000 Ml) 1,000 mls @ 70 mls/hr IV .[id number] [facility] Last Admin: 04/15/18 03:01 Dose: 70 mls/hr Fluconazole (Diflucan Iv 200 Mg/100 Ml Ns) 100 mls @ 100 mls/hr IVPB Q24H [facility]; Protocol Last Admin: 04/14/18 18:24 Dose: 100 mls/hr Insulin Aspart (Novolog) 0 unit SC Q6H [facility]; Protocol Last Admin: 04/15/18 06:55 Dose: Not Given Levothyroxine Sodium (Synthroid) 75 mcg PO DAILY@0630 [facility] Last Admin: 04/15/18 07:00 Dose: 75 mcg Methylprednisolone (Solu-Medrol) 20 mg IVP DAILY [facility] Last Admin: 04/15/18 09:14 Dose: 20 mg Pantoprazole Sodium (Protonix Inj) 20 mg IVP DAILY [facility] Last Admin: 04/15/18 09:14 Dose: 20 mg Rosuvastatin Calcium (Crestor) 5 mg PO HS [facility] Last Admin: 04/14/18 21:16 Dose: 5 mg Vitamin A (Vitamin A & D Oint Ud Foilpak) 0.5 ea TOP Q4 PRN PRN Reason: Dry mouth Last Admin: 04/15/18 09:27 Dose: 0.5 ea - Labs Labs: 04/15/18 06:00 04/15/18 06:00 PT 12.2 SECONDS (9.7-12.2) 04/09/18 19:06 INR 1.1 04/09/18 19:06 APTT 28 SECONDS (21-34) D 04/10/18 01:23
--- NOTE | 2018-04-15 11:26 | CP.PCM.PN ---
Subjective - Date & Time of Evaluation Date of Evaluation: 04/15/18 Time of Evaluation: 12:00 - Subjective Subjective: chart review vitals stable MRI done- notes on restlessness noted patient seen awake alert oriented out of bed- reclined in chair- weak, conversant ,noted words sounds better on NGT feeding discussion with Nurse- for Thyroid US guided biopsy patients discussion for further plan Objective - Vital Signs/Intake and Output Vital Signs (last 24 hours): Temp Pulse Resp BP Pulse Ox 97.4 F L 73 15 122/71 96 04/15/18 08:00 04/15/18 11:00 04/15/18 11:00 04/15/18 11:00 04/15/18 11:00 Intake and Output: 04/15/18 04/15/18 06:59 18:59 Intake Total 1200 720 Output Total 0 Balance 1200 720 - Medications Medications: Current Medications Apixaban (Eliquis) 2.5 mg PO BID [facility] Last Admin: 04/14/18 09:31 Dose: 2.5 mg Aspirin (Aspirin Chewable) 81 mg PO DAILY [facility] Last Admin: 04/15/18 09:13 Dose: 81 mg Diltiazem HCl (Cardizem) 30 mg PO QID [facility] Last Admin: 04/15/18 09:13 Dose: 30 mg Dextrose (Dextrose 5% In Water 1000 Ml) 1,000 mls @ 70 mls/hr IV .[id number] [facility] Last Admin: 04/15/18 03:01 Dose: 70 mls/hr Fluconazole (Diflucan Iv 200 Mg/100 Ml Ns) 100 mls @ 100 mls/hr IVPB Q24H [facility]; Protocol Last Admin: 04/14/18 18:24 Dose: 100 mls/hr Insulin Aspart (Novolog) 0 unit SC Q6H [facility]; Protocol Last Admin: 04/15/18 06:55 Dose: Not Given Levothyroxine Sodium (Synthroid) 75 mcg PO DAILY@0630 [facility] Last Admin: 04/15/18 07:00 Dose: 75 mcg Methylprednisolone (Solu-Medrol) 20 mg IVP DAILY [facility] Last Admin: 04/15/18 09:14 Dose: 20 mg Pantoprazole Sodium (Protonix Inj) 20 mg IVP DAILY [facility] Last Admin: 04/15/18 09:14 Dose: 20 mg Rosuvastatin Calcium (Crestor) 5 mg PO HS [facility] Last Admin: 04/14/18 21:16 Dose: 5 mg Vitamin A (Vitamin A & D Oint Ud Foilpak) 0.5 ea TOP Q4 PRN PRN Reason: Dry mouth Last Admin: 04/15/18 09:27 Dose: 0.5 ea - Labs Labs: 04/15/18 06:00 04/15/18 06:00 PT 12.2 SECONDS (9.7-12.2) 04/09/18 19:06 INR 1.1 04/09/18 19:06 APTT 28 SECONDS (21-34) D 04/10/18 01:23 - Constitutional Appears: Non-toxic (panicky at times same as baseline ), No Acute Distress - Head Exam Head Exam: ATRAUMATIC, NORMOCEPHALIC - Eye Exam Eye Exam: absent: Nystagmus, Periorbital swelling - ENT Exam ENT Exam: Mucous Membranes Dry (with NGT feeding ) - Neck Exam Neck Exam: Full ROM. absent: Tenderness - Respiratory Exam Respiratory Exam: Decreased Breath Sounds - Cardiovascular Exam Cardiovascular Exam: REGULAR RHYTHM - GI/Abdominal Exam GI & Abdominal Exam: Soft, Normal Bowel Sounds. absent: Distended, Tenderness - Extremities Exam Extremities Exam: Full ROM (except foe right weakness). absent: Pedal Edema - Back Exam Back Exam: absent: rash noted - Neurological Exam Neurological Exam: Alert, Awake, Oriented x3 (bed ridden ) - Psychiatric Exam Psychiatric exam: Normal Affect, Normal Mood (becomes anxious panicky at times ) - Skin Skin Exam: Intact, Normal Color Assessment and Plan - Assessment and Plan (Free Text) Assessment: Patient with multiple medical problems CVA with rifght sided weakness-for PT Slurred speech, poor swallow-ngt feeding , speech therapy CHF Atrial FIB Hypertension on meds, ICU care Thyroid mass- for US guided biopsy Metastaic lesions to the bones Oncology on case ANNA- monitoring Debility-PT Nutriotional support FYI- patient baseline weight is always low 100 pounds, her maximum weight since high school was 104. as per
--- NOTE | 2018-04-15 11:26 | CP.PCM.CON ---
History of Present Illness - History of Present Illness History of Present Illness: Palliative consult requested by Doctor Colon for goals of care discussion Patient is a 67 yo female admitted from [place] S/P CVA and respiratory distress. Patient was intubated on the field and transferred to hospital. In March of this year, patient was treated for non STEMI and is S/P cardiac stents, than discharged to [facility]. Upon this admission as per CT studies, large right lobe thyroid mass was diagnosed with mets to thoracic spine and pneumonia. Patient was treated with Diflucan IV and Solu Medrol and was successfully extubated during the ICU care. Patient breathing well on room air. WBC remains high at 19.8. Patient is left with aphasia, dysphasia and right sided weakness post CVA. The biopsy of Thyroid mass is proposed. PMH: CVA, anxiety, CAD, COPD Soc. Hx: , lives at home Fam. Hx: Unknown Review of Systems - Review of Systems All systems: reviewed and no additional remarkable complaints except Review of Systems: ROS unobtainable for patient due to aphasia. ROS obtained from nursing. per nursing patient has been agitated and often picking on NGT. Past Patient History - Infectious Disease Hx of Infectious Diseases: None - Past Medical History & Family History Past Medical History?: Yes - Past Social History Smoking Status: Never Smoked Chewing Tobacco Use: No Cigar Use: No Alcohol: None Home Situation {Lives}: With Family - CARDIAC Hx Hypertension: Yes - PULMONARY Hx Chronic Obstructive Pulmonary Disease (COPD): Yes - NEUROLOGICAL Hx Neurological Disorder: No HX Cerebrovascular Accident: Yes - HEENT Hx HEENT Problems: No - RENAL Hx Chronic Kidney Disease: No - ENDOCRINE/METABOLIC Hx Endocrine Disorders: No - HEMATOLOGICAL/ONCOLOGICAL Hx Blood Disorders: No - INTEGUMENTARY Hx Dermatological Problems: No - MUSCULOSKELETAL/RHEUMATOLOGICAL Hx Musculoskeletal Disorders: No Hx Falls: No - GASTROINTESTINAL Hx Gastrointestinal Disorders: No - GENITOURINARY/GYNECOLOGICAL Hx Genitourinary Disorders: No - PSYCHIATRIC Hx Substance Use: No - SURGICAL HISTORY Hx Coronary Stent: Yes - ANESTHESIA Hx Anesthesia: No Meds Allergies/Adverse Reactions: Allergies Allergy/AdvReac Type Severity Reaction Status Date / Time No Known Allergies Allergy Verified 03/25/18 20:59 - Medications Medications: Current Medications Apixaban (Eliquis) 2.5 mg PO BID [facility] Last Admin: 04/14/18 09:31 Dose: 2.5 mg Aspirin (Aspirin Chewable) 81 mg PO DAILY [facility] Last Admin: 04/15/18 09:13 Dose: 81 mg Diltiazem HCl (Cardizem) 30 mg PO QID [facility] Last Admin: 04/15/18 09:13 Dose: 30 mg Dextrose (Dextrose 5% In Water 1000 Ml) 1,000 mls @ 70 mls/hr IV .[id number] [facility] Last Admin: 04/15/18 03:01 Dose: 70 mls/hr Fluconazole (Diflucan Iv 200 Mg/100 Ml Ns) 100 mls @ 100 mls/hr IVPB Q24H [facility]; Protocol Last Admin: 04/14/18 18:24 Dose: 100 mls/hr Insulin Aspart (Novolog) 0 unit SC Q6H [facility]; Protocol Last Admin: 04/15/18 06:55 Dose: Not Given Levothyroxine Sodium (Synthroid) 75 mcg PO DAILY@0630 [facility] Last Admin: 04/15/18 07:00 Dose: 75 mcg Methylprednisolone (Solu-Medrol) 20 mg IVP DAILY [facility] Last Admin: 04/15/18 09:14 Dose: 20 mg Pantoprazole Sodium (Protonix Inj) 20 mg IVP DAILY [facility] Last Admin: 04/15/18 09:14 Dose: 20 mg Rosuvastatin Calcium (Crestor) 5 mg PO HS [facility] Last Admin: 04/14/18 21:16 Dose: 5 mg Vitamin A (Vitamin A & D Oint Ud Foilpak) 0.5 ea TOP Q4 PRN PRN Reason: Dry mouth Last Admin: 04/15/18 09:27 Dose: 0.5 ea Physical Exam - Constitutional Appears: Chronically Ill - Head Exam Head Exam: ATRAUMATIC, NORMAL INSPECTION, NORMOCEPHALIC - Eye Exam Eye Exam: EOMI, Normal appearance, PERRL Pupil Exam: NORMAL ACCOMODATION, PERRL - ENT Exam Additional comments: NGT - Neck Exam Neck exam: Positive for: Normal Inspection - Respiratory Exam Respiratory Exam: Decreased Breath Sounds, NORMAL BREATHING PATTERN - Cardiovascular Exam Cardiovascular Exam: Tachycardia, Irregular Rhythm - GI/Abdominal Exam GI & Abdominal Exam: Normal Bowel Sounds, Soft - Rectal Exam Rectal Exam: Deferred - Extremities Exam Additional comments: right sided weakness - Back Exam Back exam: NORMAL INSPECTION - Neurological Exam Neurological exam: Alert, Altered - Psychiatric Exam Psychiatric exam: Anxious - Skin Skin Exam: Dry, Intact, Normal Color, Warm Results - Vital Signs Recent Vital Signs: Last Vital Signs Temp 97.4 F L 04/15/18 08:00 Pulse 73 04/15/18 11:00 Resp 15 04/15/18 11:00 BP 122/71 04/15/18 11:00 Pulse Ox 96 04/15/18 11:00 - Labs Result Diagrams: 04/15/18 06:00 04/15/18 06:00 Labs: Laboratory Results - last 24 hr 04/13/18 04/14/18 04/14/18 06:09 11:31 18:22 WBC RBC Hgb Hct MCV MCH MCHC RDW Plt Count MPV Neut % (Auto) Lymph % (Auto) [place] % (Auto) Eos % (Auto) Baso % (Auto) Neut # (Auto) Lymph # (Auto) [place] # (Auto) Eos # (Auto) Baso # (Auto) Neutrophils % (Manual) Lymphocytes % (Manual) Monocytes % (Manual) Platelet Estimate RBC Morphology Sodium Potassium Chloride Carbon Dioxide Anion Gap BUN Creatinine Est GFR ( Amer) Est GFR (Non-Af Amer) POC Glucose (mg/dL) 177 H 231 H Random Glucose Calcium Phosphorus Magnesium Total Bilirubin AST ALT Alkaline Phosphatase Total Protein Albumin Globulin Albumin/Globulin Ratio Thyroglobulin, Quant 0.1 L Thyroperoxidase Ab <1 Thyroglobulin Antibody >1000 H HIV 1&2 Antibody Screen 04/14/18 04/15/18 04/15/18 23:58 06:00 06:00 WBC 19.8 H RBC 2.91 L Hgb 8.9 L Hct 28.1 L MCV 96.5 MCH 30.4 MCHC 31.5 L RDW 14.2 Plt Count 235 MPV 10.2 Neut % (Auto) 91.0 H Lymph % (Auto) 4.0 L [place] % (Auto) 4.7 Eos % (Auto) 0.1 Baso % (Auto) 0.2 Neut # (Auto) 18.0 H Lymph # (Auto) 0.8 L [place] # (Auto) 0.9 H Eos # (Auto) 0.0 Baso # (Auto) 0.0 Neutrophils % (Manual) 94 H Lymphocytes % (Manual) 1 L Monocytes % (Manual) 5 Platelet Estimate Normal RBC Morphology Normal Sodium 149 H Potassium 4.1 Chloride 119 H Carbon Dioxide 24 Anion Gap 10 BUN 81 H Creatinine 1.6 H Est GFR ( Amer) 39 Est GFR (Non-Af Amer) 32 POC Glucose (mg/dL) 200 H Random Glucose 150 H Calcium 10.0 Phosphorus 2.6 Magnesium 2.7 H Total Bilirubin 0.5 AST 26 ALT 30 Alkaline Phosphatase 88 Total Protein 5.9 L Albumin 3.2 L Globulin 2.8 Albumin/Globulin Ratio 1.1 Thyroglobulin, Quant Thyroperoxidase Ab Thyroglobulin Antibody HIV 1&2 Antibody Screen 04/15/18 04/15/18 06:00 06:56 WBC RBC Hgb Hct MCV MCH MCHC RDW Plt Count MPV Neut % (Auto) Lymph % (Auto) [place] % (Auto) Eos % (Auto) Baso % (Auto) Neut # (Auto) Lymph # (Auto) [place] # (Auto) Eos # (Auto) Baso # (Auto) Neutrophils % (Manual) Lymphocytes % (Manual) Monocytes % (Manual) Platelet Estimate RBC Morphology Sodium Potassium Chloride Carbon Dioxide Anion Gap BUN Creatinine Est GFR ( Amer) Est GFR (Non-Af Amer) POC Glucose (mg/dL) 158 H Random Glucose Calcium Phosphorus Magnesium Total Bilirubin AST ALT Alkaline Phosphatase Total Protein Albumin Globulin Albumin/Globulin Ratio Thyroglobulin, Quant Thyroperoxidase Ab Thyroglobulin Antibody HIV 1&2 Antibody Screen Negative Assessment & Plan - Assessment and Plan (Free Text) Assessment: Palliative consult Full Code, there is no Advance directive on chart, PPS 20% I reviewed all Medical records and diagnostic studies, examined patient in the bed. Patient is alert, aphasic, agitated and unable to fallow up simple commends. Patient is making attempt to communicate but the words are slurred. She makes eye contacts, affect is anxious. NGT in place for feedings and meds. Oral mucosa is dry. patient seems to be irritated by the NGT and is trying to pull it out. The left mitten is on. Breathing is normal, o2 Sat 97 % RA. Abdomen soft, active bowel sounds, patient is incontinent. There is right sided weakness with right arm and right leg flaccid. Patient is assisted OOB. BP 127/81, HR 83, afebrile. WBC 19.8, Hb 8.9, BUN 81, [employer] 1.6. Difflucan IV on board and IVF of D5. Recent Nuclear bone scan i significant for widely spread mets to B/L femurs, B/L humerus and shoulders. Patient's is still to decide on Thyroid Bx. I called the but could not get hold of him and there was not an option for me to leave voice mail. Impression * Metastatic disease including extensive mets to bones * This is a debilitated lady after the CVA with significant deficits * Aphasia * Dysphasia * Anxiety and agitation * Right hemiparesis * Limited mobility * Bedridden Suggestions * Promote safety * Aspiration precautions * Oral care * OOB to chair daily * PT, OT I will try to contact patient's and to discuss his expectations of care. I will talk to him about pending Thyroid Bx .
--- NOTE | 2018-04-15 16:11 | CP.PCM.PN ---
Subjective - Date & Time of Evaluation Date of Evaluation: 04/15/18 Time of Evaluation: 08:00 - Subjective Subjective: 67 yo woman with history of recent CVA with right sided weakness , recent ACS requiring coronary stents , transferred from rehab when she c/o chest and sternal pain, EMS called in by rehab, intubated in the field She is now cur rently extubated, follows simple commands, nonverbal and unable to swallow. Work up revealed large right thyroid mass, with mass effect on the trachea and the esophagus, bone scan with diffuse lytic lesions throughout the skeleton, including calvarium, sternum, ribs, spine, femurs. Patient is severely cachectic ( BMI 13 ) aphasic Objective - Vital Signs/Intake and Output Vital Signs (last 24 hours): Temp Pulse Resp BP Pulse Ox 97.3 F L 75 17 128/86 98 04/15/18 16:00 04/15/18 16:00 04/15/18 16:00 04/15/18 15:15 04/15/18 16:00 Intake and Output: 04/15/18 04/15/18 06:59 18:59 Intake Total 1200 1270 Output Total 0 Balance 1200 1270 - Medications Medications: Current Medications Apixaban (Eliquis) 2.5 mg PO BID [facility] Last Admin: 04/14/18 09:31 Dose: 2.5 mg Aspirin (Aspirin Chewable) 81 mg PO DAILY [facility] Last Admin: 04/15/18 09:13 Dose: 81 mg Diltiazem HCl (Cardizem) 30 mg PO QID [facility] Last Admin: 04/15/18 13:12 Dose: 30 mg Dextrose (Dextrose 5% In Water 1000 Ml) 1,000 mls @ 70 mls/hr IV .[id number] [facility] Last Admin: 04/15/18 13:57 Dose: Not Given Fluconazole (Diflucan Iv 200 Mg/100 Ml Ns) 100 mls @ 100 mls/hr IVPB Q24H [facility]; Protocol Last Admin: 04/14/18 18:24 Dose: 100 mls/hr Insulin Aspart (Novolog) 0 unit SC Q6H [facility]; Protocol Last Admin: 04/15/18 11:43 Dose: Not Given Levothyroxine Sodium (Synthroid) 75 mcg PO DAILY@0630 [facility] Last Admin: 04/15/18 07:00 Dose: 75 mcg Methylprednisolone (Solu-Medrol) 20 mg IVP DAILY [facility] Last Admin: 04/15/18 09:14 Dose: 20 mg Pantoprazole Sodium (Protonix Inj) 20 mg IVP DAILY [facility] Last Admin: 04/15/18 09:14 Dose: 20 mg Rosuvastatin Calcium (Crestor) 5 mg PO HS [facility] Last Admin: 04/14/18 21:16 Dose: 5 mg Vitamin A (Vitamin A & D Oint Ud Foilpak) 0.5 ea TOP Q4 PRN PRN Reason: Dry mouth Last Admin: 04/15/18 09:27 Dose: 0.5 ea - Labs Labs: 04/15/18 06:00 04/15/18 06:00 PT 12.2 SECONDS (9.7-12.2) 04/09/18 19:06 INR 1.1 04/09/18 19:06 APTT 28 SECONDS (21-34) D 04/10/18 01:23 - Constitutional Appears: Confused, Cachectic, Chronically Ill - Head Exam Head Exam: NORMOCEPHALIC - Eye Exam Eye Exam: absent: Scleral icterus - ENT Exam ENT Exam: Mucous Membranes Dry - Neck Exam Neck Exam: absent: Lymphadenopathy - Respiratory Exam Respiratory Exam: Decreased Breath Sounds - Cardiovascular Exam Cardiovascular Exam: REGULAR RHYTHM, +S1, +S2 - GI/Abdominal Exam GI & Abdominal Exam: Distended, Soft. absent: Tenderness - Rectal Exam Rectal Exam: Deferred - Exam Exam: NORMAL INSPECTION - Extremities Exam Extremities Exam: absent: Pedal Edema - Back Exam Back Exam: absent: CVA tenderness (L), CVA tenderness (R) - Neurological Exam Neurological Exam: Altered - Psychiatric Exam Psychiatric exam: Depressed - Skin Skin Exam: Dry Assessment and Plan (1) Acute respiratory failure with hypoxia and hypercapnia Status: Acute (2) Metastatic cancer Status: Acute (3) COPD exacerbation Status: Acute (4) Cachexia Status: Acute (5) CVA (cerebral vascular accident) Status: Acute - Assessment and Plan (Free Text) Assessment: 67 yo woman with history of recent CVA with right sided weakness , recent ACS requiring coronary stents , transferred from rehab when she c/o chest and sternal pain, EMS called in by rehab, intubated in the field She is now currently extubated, follows simple commands, nonverbal and unable to swallow. Work up revealed large right thyroid mass, with mass effect on the trachea and the esophagus, bone scan with diffuse lytic lesions throughout the skeleton, including calvarium, sternum, ribs, spine, femurs. Patient is severely cachectic ( BMI 13 ) aphasic grave prognosius cont rx
[2018-04-15] MEDS: Fluconazole IV 200mg/100 ml NS 100 ML IVPB SCH (17:39)
--- NOTE | 2018-04-15 18:29 | PN ---
DATE: 04/15/2018 ENDOCRINOLOGY FOLLOWUP NOTE LOCATION: Room 14A, ICU. SUBJECTIVE: This is a 67-year-old female with recent acute CVA and ongoing clinical and neurologic changes and persistent agitation and is now being followed closely for metabolic management. Her glucose values are fluctuating but improved, but have ranged by 158 to 183 mg/dL. LABORATORY DATA: Her chemistry showed a BUN of 81, sodium 149, potassium 4.1, chloride 119, CO2 of 24, glucose 150, and creatinine 1.6. Her latest cancer markers are extremely elevated with the CA 19-9 of 13,200 and a CA 125 of 2130. Her alpha fetoprotein is 2.8 with a CEA of 1.7. Her thyroid studies showed a total T4 of 3.83 with the free T4 of 0.50 and a TSH of 10.20. ASSESSMENT AND PLAN: This is a 67-year-old female with recent acute cerebrovascular accident and currently being followed closely by multiple specialists with a complicated hospital course at this time. She also remains clinically euthyroid but biochemically has evidence of early hypothyroidism and started on levothyroxine replacement therapy as given. She also has an underlying multinodular goiter with a prominent right thyroid nodule measuring 4.1 x 4 cm as noted. Moreover, she also has diffuse bony metastasis of multiple small and long bones as noted. The etiology of which has to be ascertained at this time. We will obtain serial chemistries and supplement accordingly as needed. We will continue the levothyroxine given at 75 mcg once daily in the morning as ordered. We will obtain serial chemistries and supplement accordingly as needed. We will follow. Akiko Erazo MD
--- NOTE | 2018-04-16 00:19 | PN ---
DATE: 04/15/2018 FOLLOWUP RENAL CONSULTATION LOCATION: The patient is located in ICU 14A. REQUESTED BY: Libia Brady MD REASON FOR FOLLOWUP: Acute renal failure and also hypernatremia. SUBJECTIVE: Mrs. Gonzalez is a 67-year-old very cachectic, thin-built [place] female with a past medical history significant for CHF, CVA, status post stent placement and COPD, who was recently discharged from the hospital on 04/06/2018 after being treated for pneumonia, and now, the patient was admitted on 04/09/2018 with altered mental status and respiratory failure, intubated, and admitted to ICU. Status post vigorous diuresis with IV Lasix and status post extubation. The patient was subsequently found to have a worsening renal function and also hypernatremia. The patient is not in acute distress. The patient is on IV fluids D5W at 70 mL per hour. The patient is out of bed to chair. The patient is confused, not in distress. PHYSICAL EXAMINATION: VITAL SIGNS: As follows, blood pressure 132/80, pulse 70, respirations 19, and temperature is 97.7. Height 5 feet 3 inches, weight is 78 pounds. GENERAL: Mrs. Gonzalez is a 67-year-old elderly [place] female, thin built, not in distress. HEENT: Pupils normal, reactive to light and accommodation. Conjunctivae pink. Sclerae anicteric. Tongue is dry. Trachea is midline. LUNGS: Symmetric on both sides. Bilateral breath sounds present. No crackles. CARDIOVASCULAR SYSTEM: [place] at the fifth intercostal space and midclavicular line. S1, S2 audible. No murmur or gallop. ABDOMEN: Normal in appearance, soft, tympanitic. No guarding. No rigidity. No hepatosplenomegaly. CENTRAL NERVOUS SYSTEM: The patient is awake, confused. EXTREMITIES: No cyanosis, no clubbing, no edema. SKIN: Turgor is poor. MEDICATIONS: Her current medications include as follows: Aspirin 81 mg p.o. daily, Cardizem 30 mg p.o. t.i.d., Crestor 5 mg at bedtime, IV fluids of D5W at 70 mL per hour, Diflucan 200 mg every 24 hours, Eliquis on hold, Protonix 20 mg IV daily, Solu-Medrol 20 mg IV daily, Synthroid 75 mcg p.o. daily, and vitamin A and D ointment. LABORATORY DATA: Include as follows: As of 04/15/2018, WBC 19.8, hemoglobin 8.9, hematocrit is 28.1, and platelets 235. Sodium 149, potassium 4.1, chloride 119, CO 24, BUN 81, creatinine 1.6, glucose 150, calcium is 10, and phosphorus is 2.6, magnesium 2.7. Total bili 0.5, AST 26, ALT 30, alkaline phosphatase 88, total protein 5.9, albumin is 3.2. HIV one and two antibody screening is negative, and MRI of the brain as of 04/14/2018, there are multifocal areas of restricted diffusion in the left centrum semiovale, paramedian corpus callosum and left paramedian splenium of the corpus callosum and left cerebellar hemisphere. ASSESSMENT AND PLAN: In summary, Mrs. Gonzalez is a 67-year-old elderly [place] female with a history of coronary artery disease, cerebrovascular accident, and chronic obstructive pulmonary disease, was admitted with altered mental status and respiratory failure, status post extubation, status post diuresis, respiratory failure and with increased BUN and creatinine, and hypernatremia. 1. Hypernatremia, most likely secondary to vigorous diuresis and intravascular volume depletion and dehydration. 2. Acute renal failure secondary to intravascular volume depletion again and dehydration, picture consistent with prerenal. 3. Metastatic bone disease. Its primary source is not clear. 4. Thyroid mass. Rule out malignancy. 5. Elevated CA19-9 and CA-125. Rule out pancreatic carcinoma. Continue gentle intravenous hydration, D5W at 70 mL per hour. Serum sodium is improving, and renal function is improving. Continue to monitor basic metabolic profile. We will follow with you. Thank you for allowing me to participate in your patient's care. Overall prognosis is very poor. Jose Angel Adams MD
[2018-04-16] MEDS: Levothyroxine 75 MCG TAB PO SCH (05:46)
[2018-04-16 06:22] LABS: BASO % 0.2 % (0.0-2.0); EOS # 0.3 K/uL (0.0-0.7); HEMOGLOBIN 10.7 g/dL (11.0-16.0); LYMPH # 0.7 K/uL (1.0-4.3); LYMPH % 4.5 % (20.0-40.0); MEAN CORPUSCULAR HEMOGLOBIN 30.9 pg (27.0-31.0); MEAN CORPUSCULAR HGB CONC 31.8 g/dL (33.0-37.0); MONO # 0.5 K/uL (0.0-0.8); MONO % 3.2 % (0.0-10.0); NEUT # 14.3 K/uL (1.8-7.0); NEUT % 90.1 % (50.0-75.0); NRBC % 0.4 % (0.0-2.0); PLATELET COUNT 258 K/uL (130-400); RBC 3.48 Mil/uL (3.80-5.20); RED CELL DISTRIBUTION WIDTH 14.7 % (11.5-14.5); WHITE BLOOD COUNT 15.8 K/uL (4.8-10.8)
[2018-04-16 06:30] LABS: ALB/GLOB RATIO 1.2 (1.0-2.1); ALBUMIN 3.6 g/dL (3.5-5.0); CALCIUM 10.2 mg/dl (8.6-10.4)
[2018-04-16] MEDS: (Novolog) Insulin Aspart, Recombinant 100 u/ml 10 ml vial SC SCH ×4 (07:21→23:50)
[2018-04-16 07:47] LABS: PROTHROMBIN TIME 11.1 SECONDS (9.7-12.2)
--- NOTE | 2018-04-16 07:55 | CP.PCM.PN ---
Subjective - Date & Time of Evaluation Date of Evaluation: 04/16/18 Time of Evaluation: 07:30 - Subjective Subjective: Progress Note for Dr. Erazo (Endocrine) Service Herbert Rogers DO, IM PGY-3 Patient seen and examined at bedside this AM in the ICU. Awake and alert this AM, still limited speech due to aphasia from prior stroke, but able to answer yes/no questions with clear speech. Denies pain, nausea, emesis, shortness of breath, or sensation of choking. Still with NGT in place for feeds and meds due to failing PO access. Still pending IR biopsy of thyroid, IR to do after patient transferred out of ICU. Objective - Vital Signs/Intake and Output Vital Signs (last 24 hours): Temp Pulse Resp BP Pulse Ox 97.1 F L 77 25 H 104/70 97 04/16/18 00:00 04/16/18 01:00 04/16/18 01:00 04/16/18 00:08 04/16/18 01:00 Intake and Output: 04/16/18 04/16/18 06:59 18:59 Intake Total 770 Output Total 0 Balance 770 - Medications Medications: Current Medications Apixaban (Eliquis) 2.5 mg PO BID [facility] Last Admin: 04/14/18 09:31 Dose: 2.5 mg Aspirin (Aspirin Chewable) 81 mg PO DAILY [facility] Last Admin: 04/15/18 09:13 Dose: 81 mg Diltiazem HCl (Cardizem) 30 mg PO QID [facility] Last Admin: 04/15/18 23:47 Dose: Not Given Dextrose (Dextrose 5% In Water 1000 Ml) 1,000 mls @ 70 mls/hr IV .[id number] [facility] Last Admin: 04/16/18 04:00 Dose: Not Given Fluconazole (Diflucan Iv 200 Mg/100 Ml Ns) 100 mls @ 100 mls/hr IVPB Q24H [facility]; Protocol Last Admin: 04/15/18 17:39 Dose: 100 mls/hr Insulin Aspart (Novolog) 0 unit SC Q6H [facility]; Protocol Last Admin: 04/16/18 07:21 Dose: Not Given Levothyroxine Sodium (Synthroid) 75 mcg PO DAILY@0630 [facility] Last Admin: 04/16/18 05:46 Dose: 75 mcg Methylprednisolone (Solu-Medrol) 20 mg IVP DAILY [facility] Last Admin: 04/15/18 09:14 Dose: 20 mg Pantoprazole Sodium (Protonix Inj) 20 mg IVP DAILY [facility] Last Admin: 04/15/18 09:14 Dose: 20 mg Rosuvastatin Calcium (Crestor) 5 mg PO HS [facility] Last Admin: 04/15/18 21:25 Dose: 5 mg Vitamin A (Vitamin A & D Oint Ud Foilpak) 0.5 ea TOP Q4 PRN PRN Reason: Dry mouth Last Admin: 04/15/18 09:27 Dose: 0.5 ea - Labs Labs: 04/16/18 06:12 04/16/18 06:12 PT 11.1 SECONDS (9.7-12.2) 04/16/18 07:34 INR 1.0 04/16/18 07:34 APTT 24 SECONDS (21-34) 04/16/18 07:34 - Constitutional Appears: Other (Ill-appearing, frail/cachetic) - Head Exam Head Exam: ATRAUMATIC, NORMOCEPHALIC - Eye Exam Eye Exam: EOMI, Normal appearance. absent: Conjunctival injection, Scleral icterus Pupil Exam: absent: Irregular, Unequal - ENT Exam ENT Exam: Mucous Membranes Moist - Neck Exam Neck Exam: Thyromegaly (R>L, visual bulge out from neck appreciated) - Respiratory Exam Respiratory Exam: Clear to Ausculation Bilateral, NORMAL BREATHING PATTERN. absent: Accessory Muscle Use, Chest Wall Tenderness, Decreased Breath Sounds, Rales, Rhonchi, Wheezes - Cardiovascular Exam Cardiovascular Exam: REGULAR RHYTHM, RRR, +S1, +S2. absent: Bradycardia, Tachycardia, Irregular Rhythm, JVD, +S4 - GI/Abdominal Exam GI & Abdominal Exam: Soft, Normal Bowel Sounds. absent: Distended, Guarding, Rigid, Tenderness - Extremities Exam Extremities Exam: Normal Inspection. 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 Endocrine was consulted for the multinodular thyroid gland. Plan: 1) Respiratory distress: resolved, extubated, now on room air 2) Multinodular thyroid gland with extensive bone lytic lesions, concerning for likely metastatic disease 3) COPD 4) CAD s/p stenting 2 weeks prior 5) New CVA overlying recent CVA, residual expressive aphasia/left-sided weakness form prior CVA 6) DEVIN 7) Hypothyroidism -TSH elevated at 10.2 T4 low at 3.83, and Free T4 low at 0.59; continue synthroid 75mcg daily -thyroid antibody panel obtained, notable for positive thyroglobulin antibody, consistent with suspected thyroid cancer -Ca 19-9 and Ca 125 elevated, would benefit from CT abd to rule out pancreatic Ca If pancreatic cancer present, then possibly 2 primaries (pancreas and thyroid)? -Onc consulted by primary, appreciate their insights; agree with them that pt will likely need IR biopsy of the thyroid nodules, IR consulted -IR planning for biopsy after patient transferred out of ICU -prognosis is poor given likely metastatic disease, new infarcts, agree with Palliative consult Will discuss with attending, Dr. Erazo. Further recs as per attending.
[2018-04-16] MEDS: Vitamins A & D Oint UD Foilpak TOP PRN (08:18)
[2018-04-16 08:27] LABS: BANDS 8 % (0-2); EOSINOPHIL 2 % (0-4); LYMPHOCYTE 4 % (20-40); MONOCYTE 3 % (0-10); NEUTROPHIL 83 % (50-75); PLATELET ESTIMATE NORMAL (NORMAL); TOTAL CELLS COUNTED 100
[2018-04-16 08:29] LABS: LARGE PLATELETS PRESENT; POIKILOCYTOSIS SLIGHT
[2018-04-16] MEDS: MethylPREDNISolone 40 mg Vial IVP SCH (09:26)
--- NOTE | 2018-04-16 09:51 | EEG ---
This is a 16-channel electroencephalogram of confused adult. This study was performed at the bedside. The resting electroencephalogram consists of low-amplitude fast beta activities superimposed with 2 to 3 Hz delta activities seen. Left cortical activities showed slow activities to compare with right side. There is movement artifact contaminated the background rhythm. The photic stimulation did not evoke driving response noted at 2 to 20 Hz. IMPRESSION: This is an abnormal electroencephalogram because of persistent slowing throughout the record superimposed with asymmetric slowing noted on the left cortical lead with some polyphasic sharp waves also noted. Please correlate the findings with the neurological and radiological studies. Andrew Castro MD
--- NOTE | 2018-04-16 10:14 | CP.PCM.PCO ---
Physician Communication Note - Physician Communication Note Physician Communication Note: Family meeting today at 12 pm
--- NOTE | 2018-04-16 10:49 | CP.PCM.PN ---
Subjective - Date & Time of Evaluation Date of Evaluation: 04/16/18 Time of Evaluation: 10:00 - Subjective Subjective: Chart Review vitals noted stable no unusual event overnight Patient seen in ICU- with NGT feeding awake conversant, slurred but more comprhensible this time for transfer to the floor stable Objective - Vital Signs/Intake and Output Vital Signs (last 24 hours): Temp Pulse Resp BP Pulse Ox 97.8 F 71 19 126/75 98 04/16/18 08:00 04/16/18 10:00 04/16/18 10:00 04/16/18 09:26 04/16/18 10:00 Intake and Output: 04/16/18 04/16/18 06:59 18:59 Intake Total 1320 540 Output Total 0 0 Balance 1320 540 - Medications Medications: Current Medications Apixaban (Eliquis) 2.5 mg PO BID [facility] Last Admin: 04/16/18 09:26 Dose: 2.5 mg Aspirin (Aspirin Chewable) 81 mg PO DAILY [facility] Last Admin: 04/16/18 09:26 Dose: 81 mg Diltiazem HCl (Cardizem) 30 mg PO QID [facility] Last Admin: 04/16/18 09:27 Dose: 30 mg Dextrose (Dextrose 5% In Water 1000 Ml) 1,000 mls @ 70 mls/hr IV .[id number] [facility] Last Admin: 04/16/18 08:20 Dose: 70 mls/hr Fluconazole (Diflucan Iv 200 Mg/100 Ml Ns) 100 mls @ 100 mls/hr IVPB Q24H [facility]; Protocol Last Admin: 04/15/18 17:39 Dose: 100 mls/hr Insulin Aspart (Novolog) 0 unit SC Q6H [facility]; Protocol Last Admin: 04/16/18 07:21 Dose: Not Given Levothyroxine Sodium (Synthroid) 75 mcg PO DAILY@0630 [facility] Last Admin: 04/16/18 05:46 Dose: 75 mcg Methylprednisolone (Solu-Medrol) 20 mg IVP DAILY [facility] Last Admin: 04/16/18 09:26 Dose: 20 mg Pantoprazole Sodium (Protonix Inj) 20 mg IVP DAILY [facility] Last Admin: 04/16/18 09:26 Dose: 20 mg Rosuvastatin Calcium (Crestor) 5 mg PO HS [facility] Last Admin: 04/15/18 21:25 Dose: 5 mg Vitamin A (Vitamin A & D Oint Ud Foilpak) 0.5 ea TOP Q4 PRN PRN Reason: Dry mouth Last Admin: 04/16/18 08:18 Dose: 0.5 ea - Labs Labs: 04/16/18 06:12 04/16/18 06:12 PT 11.1 SECONDS (9.7-12.2) 04/16/18 07:34 INR 1.0 04/16/18 07:34 APTT 24 SECONDS (21-34) 04/16/18 07:34 - Constitutional Appears: Non-toxic, No Acute Distress, Chronically Ill - Head Exam Head Exam: ATRAUMATIC, NORMOCEPHALIC - Eye Exam Eye Exam: absent: Nystagmus - ENT Exam ENT Exam: Mucous Membranes Moist (with some red black blood clots on lips ) - Neck Exam Neck Exam: Full ROM - Respiratory Exam Respiratory Exam: Decreased Breath Sounds - Cardiovascular Exam Cardiovascular Exam: REGULAR RHYTHM - GI/Abdominal Exam GI & Abdominal Exam: Soft, Tenderness, Normal Bowel Sounds. absent: Distended - Extremities Exam Extremities Exam: absent: Joint Swelling (can move extremeties. right weaker ), Pedal Edema - Back Exam Back Exam: absent: rash noted - Neurological Exam Neurological Exam: Alert, Awake, Oriented x3 ( with slurred speech that is becoming comprehensible, .) - Psychiatric Exam Psychiatric exam: Normal Affect, Normal Mood - Skin Skin Exam: Intact, Normal Color Assessment and Plan - Assessment and Plan (Free Text) Assessment: Patient with CVA with slurred speech and right sided weakness, for PT Hypertension - monitor and BP adjustment CHF CAD post Stent AFIB on diuretics, antiplatelets no bleeding noted Hypothyroidism Thyroid mass with bone mets further Oncology eval and management when stable Physical Debility and CVA need PT
--- NOTE | 2018-04-16 11:11 | CP.PCM.PN ---
Subjective - Date & Time of Evaluation Date of Evaluation: 04/16/18 Time of Evaluation: 11:11 - Subjective Subjective: pt is seen and examined,follow up consult is dictated #[id number] Objective - Vital Signs/Intake and Output Vital Signs (last 24 hours): Temp Pulse Resp BP Pulse Ox 97.8 F 71 19 126/75 98 04/16/18 08:00 04/16/18 10:00 04/16/18 10:00 04/16/18 09:26 04/16/18 10:00 Intake and Output: 04/16/18 04/16/18 06:59 18:59 Intake Total 1320 540 Output Total 0 0 Balance 1320 540 - Medications Medications: Current Medications Apixaban (Eliquis) 2.5 mg PO BID [facility] Last Admin: 04/16/18 09:26 Dose: 2.5 mg Aspirin (Aspirin Chewable) 81 mg PO DAILY [facility] Last Admin: 04/16/18 09:26 Dose: 81 mg Diltiazem HCl (Cardizem) 30 mg PO QID [facility] Last Admin: 04/16/18 09:27 Dose: 30 mg Dextrose (Dextrose 5% In Water 1000 Ml) 1,000 mls @ 70 mls/hr IV .[id number] [facility] Last Admin: 04/16/18 08:20 Dose: 70 mls/hr Fluconazole (Diflucan Iv 200 Mg/100 Ml Ns) 100 mls @ 100 mls/hr IVPB Q24H [facility]; Protocol Last Admin: 04/15/18 17:39 Dose: 100 mls/hr Insulin Aspart (Novolog) 0 unit SC Q6H [facility]; Protocol Last Admin: 04/16/18 07:21 Dose: Not Given Levothyroxine Sodium (Synthroid) 75 mcg PO DAILY@0630 [facility] Last Admin: 04/16/18 05:46 Dose: 75 mcg Methylprednisolone (Solu-Medrol) 20 mg IVP DAILY [facility] Last Admin: 04/16/18 09:26 Dose: 20 mg Pantoprazole Sodium (Protonix Inj) 20 mg IVP DAILY [facility] Last Admin: 04/16/18 09:26 Dose: 20 mg Rosuvastatin Calcium (Crestor) 5 mg PO HS [facility] Last Admin: 04/15/18 21:25 Dose: 5 mg Vitamin A (Vitamin A & D Oint Ud Foilpak) 0.5 ea TOP Q4 PRN PRN Reason: Dry mouth Last Admin: 04/16/18 08:18 Dose: 0.5 ea - Labs Labs: 04/16/18 06:12 04/16/18 06:12 PT 11.1 SECONDS (9.7-12.2) 04/16/18 07:34 INR 1.0 04/16/18 07:34 APTT 24 SECONDS (21-34) 04/16/18 07:34
--- NOTE | 2018-04-16 12:24 | CP.PCM.PN ---
Subjective - Date & Time of Evaluation Date of Evaluation: 04/16/18 Time of Evaluation: 12:22 - Subjective Subjective: Patient examined in the bed at room 652, just after being transferred from ICU. Patient is more alert than yesterday, less agitated and with more clar speech. NGT still in place for feeding bur clamped at this time. Patient states is hu ngry. Right sided weakness persist. at bed side. Daughter Anali on the way for Family meeting this afternoon. Objective - Vital Signs/Intake and Output Vital Signs (last 24 hours): Temp Pulse Resp BP Pulse Ox 97.8 F 71 19 126/75 98 04/16/18 08:00 04/16/18 10:00 04/16/18 10:00 04/16/18 09:26 04/16/18 10:00 Intake and Output: 04/16/18 04/16/18 06:59 18:59 Intake Total 1320 540 Output Total 0 0 Balance 1320 540 - Medications Medications: Current Medications Apixaban (Eliquis) 2.5 mg PO BID [facility] Last Admin: 04/16/18 09:26 Dose: 2.5 mg Aspirin (Aspirin Chewable) 81 mg PO DAILY [facility] Last Admin: 04/16/18 09:26 Dose: 81 mg Diltiazem HCl (Cardizem) 30 mg PO QID [facility] Last Admin: 04/16/18 09:27 Dose: 30 mg Dextrose (Dextrose 5% In Water 1000 Ml) 1,000 mls @ 70 mls/hr IV .[id number] [facility] Last Admin: 04/16/18 08:20 Dose: 70 mls/hr Fluconazole (Diflucan Iv 200 Mg/100 Ml Ns) 100 mls @ 100 mls/hr IVPB Q24H [facility]; Protocol Last Admin: 04/15/18 17:39 Dose: 100 mls/hr Insulin Aspart (Novolog) 0 unit SC Q6H [facility]; Protocol Last Admin: 04/16/18 07:21 Dose: Not Given Levothyroxine Sodium (Synthroid) 75 mcg PO DAILY@0630 [facility] Last Admin: 04/16/18 05:46 Dose: 75 mcg Methylprednisolone (Solu-Medrol) 20 mg IVP DAILY [facility] Last Admin: 04/16/18 09:26 Dose: 20 mg Pantoprazole Sodium (Protonix Inj) 20 mg IVP DAILY [facility] Last Admin: 04/16/18 09:26 Dose: 20 mg Rosuvastatin Calcium (Crestor) 5 mg PO HS [facility] Last Admin: 04/15/18 21:25 Dose: 5 mg Vitamin A (Vitamin A & D Oint Ud Foilpak) 0.5 ea TOP Q4 PRN PRN Reason: Dry mouth Last Admin: 04/16/18 08:18 Dose: 0.5 ea - Labs Labs: 04/16/18 06:12 04/16/18 06:12 PT 11.1 SECONDS (9.7-12.2) 04/16/18 07:34 INR 1.0 04/16/18 07:34 APTT 24 SECONDS (21-34) 04/16/18 07:34 - Constitutional Appears: No Acute Distress, Chronically Ill - Head Exam Head Exam: ATRAUMATIC, NORMAL INSPECTION, NORMOCEPHALIC - Eye Exam Eye Exam: EOMI, Normal appearance, PERRL Pupil Exam: NORMAL ACCOMODATION, PERRL - ENT Exam Additional comments: NGT - Neck Exam Neck Exam: Full ROM, Normal Inspection - Respiratory Exam Respiratory Exam: Decreased Breath Sounds, NORMAL BREATHING PATTERN - Cardiovascular Exam Cardiovascular Exam: Tachycardia - GI/Abdominal Exam GI & Abdominal Exam: Soft, Normal Bowel Sounds - Rectal Exam Rectal Exam: Deferred - Back Exam Back Exam: NORMAL INSPECTION - Neurological Exam Neurological Exam: Alert Neuro motor strength exam: Left Upper Extremity: 2/1, Right Upper Extremity: 0, Left Lower Extremity: 2/1, Right Lower Extremity: 0 - Psychiatric Exam Psychiatric exam: Normal Affect - Skin Skin Exam: Dry, Intact, Normal Color, Warm Assessment and Plan - Assessment and Plan (Free Text) Assessment: Patient's at bed side talking to patient crying. Patient with tears in h er eyes as well. reports being happy that his is able to talk more and is less anxious. Patient looked at me and said " Hungry", pressing her stomach with left hand. I explained that once she is able to swallow we will start giving her food. looked very emotional. Away from the bed side I asked the if understood patient's condition and if he had any questions or concerns I could address for him. He denied being aware of diagnosis . Since he looked under the stress I offered we meet later on when his daughter Anali comes in. 1 : 30 pm In presence of daughter Anali and patient's I reviewed patient's clinical presentation. They were very happy to hear that patient could say couple words today and was less anxious. I elicited their understanding and expectations of care as well as any concerns they could have. The daughter said that family knew the patient had " some mass in her throat". With their permission to share results of all diagnostic studies I disclosed to them that patient had a large tumor to her Thyroid gland and some spots to her thoracic spine concerned for mets. With all due respect I need to mention that the family is not very literate so I tried my best to explain in them understanding way. I used word " tumor" as opposed " cancer' , as I felt that already emotional; family would get even more emotional. is especially stressed out and spends each night here with patient what affects his well being. From daughter's and ;s body language I could see fear from hearing bad news and was very careful in discussing patient's condition. However, I did not give them any false hope; instead I said that patient's condition was very concerning and explained the purpose of Biopsy in further treatments. The family was happy to hear that at least there were something else to be done what installed some hope in them. Family was explained that patient will need to be closely fallowed up by the Oncologist who will discuss the options once the Biopsy results are back. Impression * S/P CVA * Right Hemiparesis * Some aphasia * Dysphagia * Family with anticipatory grieving , high anxiety and psychosocial distress * Family is looking forward all suggested interventions with hope for some recovery Suggestion * PT for right sided weakness * OOB to chair daily * Would do swallow eval and remove NGT if possible * Schedule for thyroid biopsy * Reassure family of actions taken and ongoing studies * Pastoral visit for support I shared my contact info with family and offered support as needed. Advance care planing 46 min
--- NOTE | 2018-04-16 16:35 | CP.PCM.PN ---
Subjective - Date & Time of Evaluation Date of Evaluation: 04/16/18 Time of Evaluation: 10:00 - Subjective Subjective: patient seen and examined No respiratory distress More responsive afebrile Objective - Vital Signs/Intake and Output Vital Signs (last 24 hours): Temp Pulse Resp BP Pulse Ox 97.8 F 65 20 116/68 98 04/16/18 08:00 04/16/18 12:30 04/16/18 12:30 04/16/18 12:30 04/16/18 12:30 Intake and Output: 04/16/18 04/16/18 06:59 18:59 Intake Total 1320 740 Output Total 0 0 Balance 1320 740 - Medications Medications: Current Medications Apixaban (Eliquis) 2.5 mg PO BID [facility] Last Admin: 04/16/18 09:26 Dose: 2.5 mg Aspirin (Aspirin Chewable) 81 mg PO DAILY [facility] Last Admin: 04/16/18 09:26 Dose: 81 mg Diltiazem HCl (Cardizem) 30 mg PO QID [facility] Last Admin: 04/16/18 13:14 Dose: 30 mg Dextrose (Dextrose 5% In Water 1000 Ml) 1,000 mls @ 70 mls/hr IV .[id number] [facility] Last Admin: 04/16/18 08:20 Dose: 70 mls/hr Fluconazole (Diflucan Iv 200 Mg/100 Ml Ns) 100 mls @ 100 mls/hr IVPB Q24H [facility]; Protocol Last Admin: 04/15/18 17:39 Dose: 100 mls/hr Insulin Aspart (Novolog) 0 unit SC Q6H [facility]; Protocol Last Admin: 04/16/18 12:38 Dose: Not Given Levothyroxine Sodium (Synthroid) 75 mcg PO DAILY@0630 [facility] Last Admin: 04/16/18 05:46 Dose: 75 mcg Methylprednisolone (Solu-Medrol) 20 mg IVP DAILY [facility] Last Admin: 04/16/18 09:26 Dose: 20 mg Pantoprazole Sodium (Protonix Inj) 20 mg IVP DAILY [facility] Last Admin: 04/16/18 09:26 Dose: 20 mg Rosuvastatin Calcium (Crestor) 5 mg PO HS [facility] Last Admin: 04/15/18 21:25 Dose: 5 mg Vitamin A (Vitamin A & D Oint Ud Foilpak) 0.5 ea TOP Q4 PRN PRN Reason: Dry mouth Last Admin: 04/16/18 08:18 Dose: 0.5 ea - Labs Labs: 04/16/18 06:12 04/16/18 06:12 PT 11.1 SECONDS (9.7-12.2) 04/16/18 07:34 INR 1.0 04/16/18 07:34 APTT 24 SECONDS (21-34) 04/16/18 07:34 - Head Exam Head Exam: ATRAUMATIC, NORMOCEPHALIC - ENT Exam ENT Exam: Mucous Membranes Moist - Respiratory Exam Respiratory Exam: Decreased Breath Sounds - Cardiovascular Exam Cardiovascular Exam: REGULAR RHYTHM - GI/Abdominal Exam GI & Abdominal Exam: Soft Assessment and Plan (1) CVA (cerebral vascular accident) Status: Acute (2) Metastatic cancer Status: Acute (3) COPD exacerbation Status: Acute
--- NOTE | 2018-04-16 17:42 | CON ---
PROCEDURE DATE: 04/16/2018 HISTORY OF PRESENT ILLNESS: This is a 67-year-old woman with on x-ray a cancer in her neck eroding to the cervical spine. The patient of course cannot give me history. PHYSICAL EXAMINATION: She shows temporal wasting noted. palpable mid shaft clavicular and left subclavicular regions. BREAST: Shows no mass or discharge. LUNGS: ____. HEART: S1, S2. ABDOMEN: No liver, no spleen, no tenderness or rebound. EXTREMITIES: Shows no edema. The patient evidently came in with a CVA and was intubated before she got into an NG tube in her and the scan showed this mass in the neck with erosion of the sternum and manubrium, C7, T1, T2 regions. She has been taken off the Eliquis until Interventional Radiology can do biopsies and try to get a pathologic result pending this weekend and make decisions to whether there is chemotherapy if this is a lymphoma or whether there is palliative radiation therapy to the neck. She seems to be also on x-ray early signs of a possible subclavicular obstruction of the blood vessels and SVC syndrome, so far not yet. So, let us see what the CAT scan guided biopsy shows. Ayaan Cruz MD
[2018-04-16] MEDS: Fluconazole IV 200mg/100 ml NS 100 ML IVPB SCH (17:55)
--- NOTE | 2018-04-16 19:12 | CP.PCM.PN ---
Subjective - Date & Time of Evaluation Date of Evaluation: 04/16/18 Time of Evaluation: 07:00 - Subjective Subjective: more alert moving right side 'in nad NGT in place at bedside Objective - Vital Signs/Intake and Output Vital Signs (last 24 hours): Temp Pulse Resp BP Pulse Ox 97.8 F 62 20 115/71 98 04/16/18 15:00 04/16/18 15:00 04/16/18 15:00 04/16/18 15:00 04/16/18 15:00 Intake and Output: 04/16/18 04/17/18 18:59 06:59 Intake Total 740 Output Total 0 Balance 740 - Medications Medications: Current Medications Apixaban (Eliquis) 2.5 mg PO BID [facility] Last Admin: 04/16/18 17:50 Dose: 2.5 mg Aspirin (Aspirin Chewable) 81 mg PO DAILY [facility] Last Admin: 04/16/18 09:26 Dose: 81 mg Diltiazem HCl (Cardizem) 30 mg PO QID [facility] Last Admin: 04/16/18 17:50 Dose: 30 mg Dextrose (Dextrose 5% In Water 1000 Ml) 1,000 mls @ 70 mls/hr IV .[id number] [facility] Last Admin: 04/16/18 17:58 Dose: 70 mls/hr Fluconazole (Diflucan Iv 200 Mg/100 Ml Ns) 100 mls @ 100 mls/hr IVPB Q24H [facility]; Protocol Last Admin: 04/16/18 17:55 Dose: 100 mls/hr Insulin Aspart (Novolog) 0 unit SC Q6H [facility]; Protocol Last Admin: 04/16/18 12:38 Dose: Not Given Levothyroxine Sodium (Synthroid) 75 mcg PO DAILY@0630 [facility] Last Admin: 04/16/18 05:46 Dose: 75 mcg Methylprednisolone (Solu-Medrol) 20 mg IVP DAILY [facility] Last Admin: 04/16/18 09:26 Dose: 20 mg Pantoprazole Sodium (Protonix Inj) 20 mg IVP DAILY [facility] Last Admin: 04/16/18 09:26 Dose: 20 mg Rosuvastatin Calcium (Crestor) 5 mg PO HS [facility] Last Admin: 04/15/18 21:25 Dose: 5 mg Vitamin A (Vitamin A & D Oint Ud Foilpak) 0.5 ea TOP Q4 PRN PRN Reason: Dry mouth Last Admin: 04/16/18 08:18 Dose: 0.5 ea - Labs Labs: 04/16/18 06:12 04/16/18 06:12 PT 11.1 SECONDS (9.7-12.2) 04/16/18 07:34 INR 1.0 04/16/18 07:34 APTT 24 SECONDS (21-34) 04/16/18 07:34 - Constitutional Appears: Confused, Cachectic, Chronically Ill - Head Exam Head Exam: NORMOCEPHALIC - Eye Exam Eye Exam: absent: Scleral icterus - ENT Exam ENT Exam: Mucous Membranes Dry - Neck Exam Neck Exam: absent: Lymphadenopathy - Respiratory Exam Respiratory Exam: Decreased Breath Sounds - Cardiovascular Exam Cardiovascular Exam: REGULAR RHYTHM - GI/Abdominal Exam GI & Abdominal Exam: Distended - Rectal Exam Rectal Exam: Deferred - Exam Exam: NORMAL INSPECTION - Extremities Exam Extremities Exam: absent: Pedal Edema - Back Exam Back Exam: absent: CVA tenderness (L), CVA tenderness (R) - Neurological Exam Neurological Exam: Alert, Altered, CN II-XII Intact. absent: Oriented x3 Neuro motor strength exam: Left Upper Extremity: 4, Right Upper Extremity: 3, Left Lower Extremity: 4, Right Lower Extremity: 3 - Psychiatric Exam Psychiatric exam: Depressed - Skin Skin Exam: Dry Assessment and Plan (1) Acute respiratory failure with hypoxia and hypercapnia Status: Acute (2) Metastatic cancer Status: Acute (3) COPD exacerbation Status: Acute (4) Cachexia Status: Acute (5) CVA (cerebral vascular accident) Status: Acute - Assessment and Plan (Free Text) Assessment: cont rx as per Dr Colon antifungals reordered
--- NOTE | 2018-04-16 19:28 | PN ---
DATE: 04/16/2018 ENDOCRINOLOGY FOLLOWUP NOTE LOCATION: In room 652. She was transferred from ICU to room 652. SUBJECTIVE: This is a 67-year-old female with recent acute CVA and expressive aphasia with improving clinical and neurological status as noted overnight. She is more responsive and attempting to speak with some dysarthria and slurred speech as noted. She has no overt compressive or obstructive symptoms in the neck area as noted. She remains clinically euthyroid and biochemically has early evidence of hypothyroidism as noted thereof. LABORATORY DATA: Her latest chemistry showed a BUN of 53, sodium 144, potassium 4.7, chloride 112, CO2 of 25, glucose 124, and creatinine 1.1. Her glucose levels are fluctuating ranging from 134 to 181 and 239 mg/dL. She is still on a tapering dose of the IV steroids as given with ongoing Solu-Medrol at 20 mg IV once daily as ordered. As mentioned in the previous notes, her final ultrasound confirmed the presence of an underlying multinodular goiter with a dominant right thyroid nodule measuring 4.1 x 4 cm as noted. She is awaiting the fine-needle aspiration biopsy which should be scheduled within the next few days as noted. She also has ongoing GI workup for a possible colonic and/or pancreatic malignancy with markedly elevated CA19-9 as noted. She also has diffuse bony metastases in multiple areas as mentioned in the previous radiologic procedures. PLAN: We will obtain serial chemistries and supplement accordingly as needed. We will also continue the levothyroxine given as 75 mcg once daily as ordered. We will follow and advise accordingly. Akiko Erazo MD
--- NOTE | 2018-04-17 01:03 | PN ---
DATE: 04/16/2018 FOLLOWUP RENAL CONSULTATION LOCATION: The patient is located in room 652, bed B. REQUESTED BY: Libia Brady MD REASON FOR RENAL CONSULTATION: Hypernatremia, acute renal failure. SUBJECTIVE: Mrs. Gonzalez is a 67-year-old very thin-built, cachectic [place] female with a past medical history significant for CVA, coronary artery disease, status post stent placement, COPD, who was recently discharged from [facility] after treating for pneumonia and the patient was admitted on 04/09/2018 from the long-term with respiratory distress and altered mental status and intubated in the field and admitted to ICU. The patient has dysarthria and also slightly confused. The patient is not in acute distress. The patient is being treated for hypernatremia and acute renal failure on IV fluids of D5W at 70 mL/hour. Serum sodium is gradually improving. No chest pain, no palpitation. No fever. No cough. No edema of the legs. PHYSICAL EXAMINATION: VITAL SIGNS: This morning as follows: Blood pressure 126/75, pulse 65, respirations 17, temperature 97.8 and saturation 98% on 2 liters nasal cannula. Height 5 feet 3 inches and weight is 79 pounds. GENERAL: Mrs. Gonzalez is a 67-year-old elderly, cachectic female, status post vigorous diuresis, status post extubation, on NG tube feeding and nasal cannula. HEENT: Pupils normal, reactive to light and accommodation. Conjunctivae pink. Sclerae anicteric. Tongue is slightly dry. Trachea is midline. LUNGS: Symmetric on both sides. Bilateral breath sounds present. No crackles. CVS: Theodore at the fifth intercostal space, midclavicular line. S1 and S2 audible. No murmur or gallop. ABDOMEN: Normal in appearance, soft, tympanitic. No guarding. No rigidity. No hepatosplenomegaly. 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 Sensory system is within normal limits. Motor system, moving all extremities. EXTREMITIES: No cyanosis, no clubbing and no edema. SKIN: Turgor is still poor. CURRENT MEDICATIONS: Include as follows: Aspirin 81 mg p.o. daily, Cardizem 30 mg p.o. four times daily, Crestor 5 mg at bedtime, Diflucan 200 mg IV every 24 hours, Eliquis 2.5 mg p.o. b.i.d., Protonix 20 mg IV daily, Solu-Medrol 20 mg IV daily, Synthroid 75 mcg p.o. daily, and vitamin A and D ointment. LABORATORY DATA: Her other laboratory data includes as follows: As of 04/16/2018, WBC 15.8, hemoglobin 10.7, hematocrit is 33.8, platelets is 258, neutrophils 83, bands 8, lymph 4, monos 3, and eosinophils 2. Sodium 144, potassium is 4.7, chloride 112, CO2 of 25, BUN 53, creatinine 1.1, glucose is 124, calcium is 10.2, phosphorus 2.5, magnesium 2.6. Total bili 0.8, AST 26, ALT 32, alkaline phosphatase 111, total protein 6.5, albumin is 3.6. Procalcitonin is 0.56 as of 04/15/2018. ASSESSMENT AND PLAN: In summary, Mrs. Gonzalez is a 67-year-old elderly very thin-built, cachectic [place] female with a history of cerebrovascular accident, dysarthria, coronary artery disease, status post stent, chronic obstructive pulmonary disease, status post respiratory failure and extubation, vigorous diuresis in intensive care unit with increased serum sodium and acute renal failure. 1. Hypernatremia. Serum sodium is improving nicely with intravenous fluids of D5W. Continue D5W 70 mL/hour another 24 hours and then discontinue. Continue nasogastric tube feeding and also consider free water 200 mL every 8 hours from tomorrow. 2. Acute renal failure secondary to prerenal, secondary to intravascular depletion, secondary to vigorous diuresis. 3. Rule out metastatic disease, rule out thyroid malignancy, rule out pancreatic cancer, rule out ovarian cancer in view of elevated CA19-9 and CA-125. Continue monitor and continue to follow up with Hematology/Oncology for further management. Repeat BMP in the morning. Overall prognosis is very poor. We will follow with you. Thank you for allowing me to participate in your patient's care. Jose Angel Adams MD
[2018-04-17] MEDS: Levothyroxine 75 MCG TAB PO SCH (05:53)
[2018-04-17] MEDS: Vitamins A & D Oint UD Foilpak TOP PRN (06:05)
[2018-04-17] MEDS: (Novolog) Insulin Aspart, Recombinant 100 u/ml 10 ml vial SC SCH ×3 (06:10→23:53)
--- NOTE | 2018-04-17 06:26 | CP.PCM.PN ---
Subjective - Date & Time of Evaluation Date of Evaluation: 04/15/18 Time of Evaluation: 07:25 - Subjective Subjective: Patient seen and evaluated More comfortable Paraxysmal A Fib S/P CVA with expresiive aphasia Physical Examination - Constitutional Appears: No Acute Distress - Head Exam Head Exam: ATRAUMATIC, NORMOCEPHALIC - ENT Exam ENT Exam: Mucous Membranes Dry - Neck Exam Neck Exam: Full ROM. absent: Tenderness - Respiratory Exam Respiratory Exam: Decreased Breath Sounds (with slight congestion but improving sounds ), NORMAL BREATHING PATTERN - Cardiovascular Exam Cardiovascular Exam: REGULAR RHYTHM - GI/Abdominal Exam GI & Abdominal Exam: Soft, Normal Bowel Sounds. absent: Distended, Tenderness - Back Exam Back Exam: Full ROM - Neurological Exam Neurological Exam: Alert, Awake, Oriented x3 (weak righ side, slurred speech weak right corner mouth,) - Psychiatric Exam Psychiatric exam: Normal Affect, Normal Mood - Skin Skin Exam: Intact, Normal Color Assessment and Plan - Assessment and Plan (Free Text) Assessment: Patient with history of Hypertension with recent CVA-with right sided weakness CAD post stent on plavix aspirin PT Hypertension and Anxiety -adjust meds accordingly COPD/Emphysema admitted for Respiratory failure- with CXR_CHF, intubated in the field right clavicular fracture -follow up ortho extubated newCVA- further Neuro/cardio evaluation ongoing Metastatic Thyroid Ca Patient with paraxysmal A Fib On Eliquis 2.5 mg po bid Continue ASA 81 daily Plavix Stopped Objective - Vital Signs/Intake and Output Vital Signs (last 24 hours): Temp Pulse Resp BP Pulse Ox 98.5 F 68 20 130/79 98 04/17/18 05:06 04/17/18 05:06 04/17/18 05:06 04/17/18 05:06 04/17/18 05:06 Intake and Output: 04/16/18 04/17/18 18:59 06:59 Intake Total 740 Output Total 0 Balance 740 - Medications Medications: Current Medications Apixaban (Eliquis) 2.5 mg PO BID [facility] Last Admin: 04/16/18 17:50 Dose: 2.5 mg Aspirin (Aspirin Chewable) 81 mg PO DAILY [facility] Last Admin: 04/16/18 09:26 Dose: 81 mg Diltiazem HCl (Cardizem) 30 mg PO QID [facility] Last Admin: 04/16/18 21:29 Dose: Not Given Fluconazole (Diflucan Iv 200 Mg/100 Ml Ns) 100 mls @ 100 mls/hr IVPB Q24H [facility]; Protocol Last Admin: 04/16/18 17:55 Dose: 100 mls/hr Insulin Aspart (Novolog) 0 unit SC Q6H [facility]; Protocol Last Admin: 04/16/18 23:50 Dose: Not Given Levothyroxine Sodium (Synthroid) 75 mcg PO DAILY@0630 [facility] Last Admin: 04/17/18 05:53 Dose: 75 mcg Methylprednisolone (Solu-Medrol) 20 mg IVP DAILY [facility] Last Admin: 04/16/18 09:26 Dose: 20 mg Pantoprazole Sodium (Protonix Inj) 20 mg IVP DAILY [facility] Last Admin: 04/16/18 09:26 Dose: 20 mg Rosuvastatin Calcium (Crestor) 5 mg PO HS [facility] Last Admin: 04/16/18 23:00 Dose: 5 mg Vitamin A (Vitamin A & D Oint Ud Foilpak) 0.5 ea TOP Q4 PRN PRN Reason: Dry mouth Last Admin: 04/17/18 06:05 Dose: 0.5 ea - Labs Labs: 04/16/18 06:12 04/16/18 06:12 PT 11.1 SECONDS (9.7-12.2) 04/16/18 07:34 INR 1.0 04/16/18 07:34 APTT 24 SECONDS (21-34) 04/16/18 07:34
--- NOTE | 2018-04-17 06:27 | CP.PCM.PN ---
Subjective - Date & Time of Evaluation Date of Evaluation: 04/16/18 Time of Evaluation: 18:15 - Subjective Subjective: Patient seen and evaluated More comfortable Paraxysmal A Fib S/P CVA with expresiive aphasia Physical Examination - Constitutional Appears: No Acute Distress - Head Exam Head Exam: ATRAUMATIC, NORMOCEPHALIC - ENT Exam ENT Exam: Mucous Membranes Dry - Neck Exam Neck Exam: Full ROM. absent: Tenderness - Respiratory Exam Respiratory Exam: Decreased Breath Sounds (with slight congestion but improving sounds ), NORMAL BREATHING PATTERN - Cardiovascular Exam Cardiovascular Exam: REGULAR RHYTHM - GI/Abdominal Exam GI & Abdominal Exam: Soft, Normal Bowel Sounds. absent: Distended, Tenderness - Back Exam Back Exam: Full ROM - Neurological Exam Neurological Exam: Alert, Awake, Oriented x3 (weak righ side, slurred speech weak right corner mouth,) - Psychiatric Exam Psychiatric exam: Normal Affect, Normal Mood - Skin Skin Exam: Intact, Normal Color Assessment and Plan - Assessment and Plan (Free Text) Assessment: Patient with history of Hypertension with recent CVA-with right sided weakness CAD post stent on plavix aspirin PT Hypertension and Anxiety -adjust meds accordingly COPD/Emphysema admitted for Respiratory failure- with CXR_CHF, intubated in the field right clavicular fracture -follow up ortho extubated newCVA- further Neuro/cardio evaluation ongoing Metastatic Thyroid Ca Patient with paraxysmal A Fib On Eliquis 2.5 mg po bid Continue ASA 81 daily Plavix Stopped Objective - Vital Signs/Intake and Output Vital Signs (last 24 hours): Temp Pulse Resp BP Pulse Ox 98.5 F 68 20 130/79 98 04/17/18 05:06 04/17/18 05:06 04/17/18 05:06 04/17/18 05:06 04/17/18 05:06 Intake and Output: 04/16/18 04/17/18 18:59 06:59 Intake Total 740 Output Total 0 Balance 740 - Medications Medications: Current Medications Apixaban (Eliquis) 2.5 mg PO BID [facility] Last Admin: 04/16/18 17:50 Dose: 2.5 mg Aspirin (Aspirin Chewable) 81 mg PO DAILY [facility] Last Admin: 04/16/18 09:26 Dose: 81 mg Diltiazem HCl (Cardizem) 30 mg PO QID [facility] Last Admin: 04/16/18 21:29 Dose: Not Given Fluconazole (Diflucan Iv 200 Mg/100 Ml Ns) 100 mls @ 100 mls/hr IVPB Q24H [facility]; Protocol Last Admin: 04/16/18 17:55 Dose: 100 mls/hr Insulin Aspart (Novolog) 0 unit SC Q6H [facility]; Protocol Last Admin: 04/16/18 23:50 Dose: Not Given Levothyroxine Sodium (Synthroid) 75 mcg PO DAILY@0630 [facility] Last Admin: 04/17/18 05:53 Dose: 75 mcg Methylprednisolone (Solu-Medrol) 20 mg IVP DAILY [facility] Last Admin: 04/16/18 09:26 Dose: 20 mg Pantoprazole Sodium (Protonix Inj) 20 mg IVP DAILY [facility] Last Admin: 04/16/18 09:26 Dose: 20 mg Rosuvastatin Calcium (Crestor) 5 mg PO HS [facility] Last Admin: 04/16/18 23:00 Dose: 5 mg Vitamin A (Vitamin A & D Oint Ud Foilpak) 0.5 ea TOP Q4 PRN PRN Reason: Dry mouth Last Admin: 04/17/18 06:05 Dose: 0.5 ea - Labs Labs: 04/16/18 06:12 04/16/18 06:12 PT 11.1 SECONDS (9.7-12.2) 04/16/18 07:34 INR 1.0 04/16/18 07:34 APTT 24 SECONDS (21-34) 04/16/18 07:34
[2018-04-17 06:29] LABS: BASO # 0.1 K/uL (0.0-0.2); BASO % 0.6 % (0.0-2.0); EOS # 0.3 K/uL (0.0-0.7); HEMOGLOBIN 8.8 g/dL (11.0-16.0); LYMPH # 0.6 K/uL (1.0-4.3); LYMPH % 4.1 % (20.0-40.0); MEAN CELL VOLUME 96.2 fL (81.0-99.0); MEAN CORPUSCULAR HEMOGLOBIN 30.3 pg (27.0-31.0); MEAN CORPUSCULAR HGB CONC 31.5 g/dL (33.0-37.0); MEAN PLATELET VOLUME 10.2 fL (7.2-11.7); MONO # 0.6 K/uL (0.0-0.8); MONO % 3.8 % (0.0-10.0); NEUT # 13.3 K/uL (1.8-7.0); NEUT % 89.5 % (50.0-75.0); NRBC % 0.1 % (0.0-2.0); PLATELET COUNT 236 K/uL (130-400); RBC 2.89 Mil/uL (3.80-5.20); RED CELL DISTRIBUTION WIDTH 14.6 % (11.5-14.5); WHITE BLOOD COUNT 14.8 K/uL (4.8-10.8)
[2018-04-17 06:43] LABS: ALB/GLOB RATIO 1.1 (1.0-2.1); ALBUMIN 2.9 g/dL (3.5-5.0); ALT/SGPT 23 U/L (9-52); AST/SGOT 24 U/L (14-36); BLOOD UREA NITROGEN 33 mg/dL (7-17); CALCIUM 9.2 mg/dl (8.6-10.4); GFR NON-AFRICAN AMERICAN > 60
--- NOTE | 2018-04-17 08:00 | CP.PCM.PN ---
Subjective - Date & Time of Evaluation Date of Evaluation: 04/17/18 Time of Evaluation: 07:25 - Subjective Subjective: Progress Note for Dr. Erazo (Endocrine) Service Herbert Sue DO, IM PGY-3 Patient seen and examined at bedside this AM on the floors. Confused this AM, repeatedly asking for something to clean her face with even though facial care just rendered by nursing, which nursing reminded the patient of several times; possible delirium vs sundowning? Following simple commands, but unable to answer any questions reliably. Objective - Vital Signs/Intake and Output Vital Signs (last 24 hours): Temp Pulse Resp BP Pulse Ox 97.6 F 69 20 134/83 98 04/17/18 07:00 04/17/18 07:00 04/17/18 07:00 04/17/18 07:00 04/17/18 07:00 - Medications Medications: Current Medications Apixaban (Eliquis) 2.5 mg PO BID [facility] Last Admin: 04/16/18 17:50 Dose: 2.5 mg Aspirin (Aspirin Chewable) 81 mg PO DAILY [facility] Last Admin: 04/16/18 09:26 Dose: 81 mg Diltiazem HCl (Cardizem) 30 mg PO QID [facility] Last Admin: 04/16/18 21:29 Dose: Not Given Fluconazole (Diflucan Iv 200 Mg/100 Ml Ns) 100 mls @ 100 mls/hr IVPB Q24H [facility]; Protocol Last Admin: 04/16/18 17:55 Dose: 100 mls/hr Insulin Aspart (Novolog) 0 unit SC Q6H [facility]; Protocol Last Admin: 04/17/18 06:10 Dose: Not Given Levothyroxine Sodium (Synthroid) 75 mcg PO DAILY@0630 [facility] Last Admin: 04/17/18 05:53 Dose: 75 mcg Methylprednisolone (Solu-Medrol) 20 mg IVP DAILY [facility] Last Admin: 04/16/18 09:26 Dose: 20 mg Pantoprazole Sodium (Protonix Inj) 20 mg IVP DAILY [facility] Last Admin: 04/16/18 09:26 Dose: 20 mg Rosuvastatin Calcium (Crestor) 5 mg PO HS [facility] Last Admin: 04/16/18 23:00 Dose: 5 mg Vitamin A (Vitamin A & D Oint Ud Foilpak) 0.5 ea TOP Q4 PRN PRN Reason: Dry mouth Last Admin: 04/17/18 06:05 Dose: 0.5 ea - Labs Labs: 04/17/18 06:19 04/17/18 06:19 PT 11.1 SECONDS (9.7-12.2) 04/16/18 07:34 INR 1.0 04/16/18 07:34 APTT 24 SECONDS (21-34) 04/16/18 07:34 - Additional Findings Additional findings: - Constitutional Appears: Other (Ill-appearing, frail/cachetic) - Head Exam Head Exam: ATRAUMATIC, NORMOCEPHALIC - Eye Exam Eye Exam: Normal appearance. absent: Conjunctival injection, Scleral icterus - ENT Exam ENT Exam: Mucous Membranes Moist, NGT in place, A&D ointment along nasal and oral regions observed - Neck Exam Neck Exam: Thyromegaly (R>L, visual bulge out from neck appreciated) - Respiratory Exam Respiratory Exam: Clear to Ausculation Bilateral, NORMAL BREATHING PATTERN. absent: Accessory Muscle Use, Chest Wall Tenderness, Decreased Breath Sounds, Rales, Rhonchi, Wheezes - Cardiovascular Exam Cardiovascular Exam: REGULAR RHYTHM, RRR, +S1, +S2. absent: Bradycardia, Tachycardia, Irregular Rhythm, JVD, +S4 - GI/Abdominal Exam GI & Abdominal Exam: Soft, Normal Bowel Sounds. absent: Distended, Guarding, Rigid, Tenderness - Extremities Exam Extremities Exam: Normal Inspection. absent: Pedal Edema - Neurological Exam Awake and alert but confused and fixated on getting her face washed, speaking more words today but slurring of words more apparent with increased speech - Psychiatric Exam Confused, repeating same comments, possible sundowning - Skin Skin Exam: Dry, Warm, scattered echymosis witnessed Assessment and Plan - Assessment and Plan (Free Text) Assessment: This is a 67 yo F with PMH of HTN, Anxiety, HLD, and recently diagnosed CVA with residual L sided weakness, COPD, and CAD s/p stenting who presented in respiratory distress, now extubated, but found to have extensive nodules in the thyroid and extensive lytic bone lesions on imaging, highly concerning for cancer. Endocrine was consulted for the multinodular thyroid gland. Plan: 1) Respiratory distress: resolved, extubated, now on room air 2) Multinodular thyroid gland with extensive bone lytic lesions, concerning for likely metastatic disease 3) COPD 4) CAD s/p stenting 2 weeks prior 5) New CVA overlying recent CVA, residual expressive aphasia/left-sided weakness form prior CVA 6) DEVIN 7) Hypothyroidism 8) Delirium vs sundowning -TSH increased to 20.3, T4/Free T4 decreased to 2.76/0.49, can consider increasing Synthroid to 150mcg -thyroid antibody panel obtained, notable for positive thyroglobulin antibody, consistent with suspected thyroid cancer -Ca 19-9 and Ca 125 elevated, would benefit from CT abd to rule out pancreatic Ca -Onc consulted by primary, appreciate their insights -IR planning for biopsy after patient transferred out of ICU -prognosis is poor given likely metastatic disease, new infarcts, agree with Palliative consult Will discuss with attending, Dr. Erazo. Further recs as per attending.
[2018-04-17 08:39] LABS: BANDS 3 % (0-2); LYMPHOCYTE 2 % (20-40); MONOCYTE 2 % (0-10); NEUTROPHIL 93 % (50-75); TOTAL CELLS COUNTED 100
[2018-04-17 08:40] LABS: HYPOCHROMIC SLIGHT; PLATELET ESTIMATE NORMAL (NORMAL); POLYCHROMIC SLIGHT
[2018-04-17] MEDS: MethylPREDNISolone 40 mg Vial IVP SCH (10:30)
--- NOTE | 2018-04-17 11:34 | PN ---
DATE: 04/17/2018 TIME OF EVALUATION: 7:20 a.m. PHYSICAL EXAMINATION: GENERAL: The patient is more awake, alert, asking for water. She is on NG tube. She moves all four extremities somewhat, coordination has improved on her left side. VITAL SIGNS: Blood pressure 130/79, mean arterial pressure of 96, respiratory rate 18, temperature 98.5 with pulse rate 68 sinus. Her metastatic workup is pending. Her elevated CA 19-9 and CA 125 are consistent with possible GI cancers. The patient is being followed by oncologist. Continue the present management. Continue anticoagulation as it has been recommended. Andrew Castro MD
--- NOTE | 2018-04-17 12:39 | CP.PCM.PN ---
Subjective - Date & Time of Evaluation Date of Evaluation: 04/17/18 Time of Evaluation: 12:30 - Subjective Subjective: chart review vitals stable, afebrile transferred out of [facility] patient seen- in the floor seated to chair, supporting patient has NGT for feeding failed barium swallow slurred speech but has some improving comprehensible words, afebrile anemia noted Objective - Vital Signs/Intake and Output Vital Signs (last 24 hours): Temp Pulse Resp BP Pulse Ox 97.6 F 69 20 134/83 98 04/17/18 07:00 04/17/18 07:00 04/17/18 07:00 04/17/18 07:00 04/17/18 07:00 - Medications Medications: Current Medications Apixaban (Eliquis) 2.5 mg PO BID [facility] Last Admin: 04/17/18 10:30 Dose: 2.5 mg Aspirin (Aspirin Chewable) 81 mg PO DAILY [facility] Last Admin: 04/17/18 10:30 Dose: 81 mg Diltiazem HCl (Cardizem) 30 mg PO QID [facility] Last Admin: 04/17/18 10:30 Dose: 30 mg Fluconazole (Diflucan Iv 200 Mg/100 Ml Ns) 100 mls @ 100 mls/hr IVPB Q24H [facility]; Protocol Last Admin: 04/16/18 17:55 Dose: 100 mls/hr Insulin Aspart (Novolog) 0 unit SC Q6H [facility]; Protocol Last Admin: 04/17/18 06:10 Dose: Not Given Levothyroxine Sodium (Synthroid) 75 mcg PO DAILY@0630 [facility] Last Admin: 04/17/18 05:53 Dose: 75 mcg Methylprednisolone (Solu-Medrol) 20 mg IVP DAILY [facility] Last Admin: 04/17/18 10:30 Dose: 20 mg Pantoprazole Sodium (Protonix Inj) 20 mg IVP DAILY [facility] Last Admin: 04/17/18 10:30 Dose: 20 mg Rosuvastatin Calcium (Crestor) 5 mg PO HS [facility] Last Admin: 04/16/18 23:00 Dose: 5 mg Vitamin A (Vitamin A & D Oint Ud Foilpak) 0.5 ea TOP Q4 PRN PRN Reason: Dry mouth Last Admin: 04/17/18 06:05 Dose: 0.5 ea - Labs Labs: 04/17/18 06:19 04/17/18 06:19 PT 11.1 SECONDS (9.7-12.2) 04/16/18 07:34 INR 1.0 04/16/18 07:34 APTT 24 SECONDS (21-34) 04/16/18 07:34 - Constitutional Appears: Non-toxic, No Acute Distress, Chronically Ill (with NGt for feeding , holdisn self in the chair ) - Head Exam Head Exam: ATRAUMATIC, NORMOCEPHALIC - Eye Exam Eye Exam: Normal appearance. absent: Nystagmus, Periorbital swelling - ENT Exam ENT Exam: Mucous Membranes Dry - Neck Exam Neck Exam: Full ROM. absent: Tenderness - Respiratory Exam Respiratory Exam: Decreased Breath Sounds, NORMAL BREATHING PATTERN - Cardiovascular Exam Cardiovascular Exam: REGULAR RHYTHM - GI/Abdominal Exam GI & Abdominal Exam: Soft, Normal Bowel Sounds. absent: Distended, Tenderness - Extremities Exam Extremities Exam: Full ROM. absent: Pedal Edema - Neurological Exam Neurological Exam: Alert, Awake, Normal Gait, Oriented x3 - Psychiatric Exam Psychiatric exam: Normal Affect, Normal Mood - Skin Skin Exam: Intact, Normal Color Assessment and Plan - Assessment and Plan (Free Text) Assessment: Patient with history of acute medical problems that happened within a month COPD, CHF Respiratory Failure post Intubation CAD post Stent CVA Thyroid mass Metastatic lesion to the bones Clavicular fracture right Anemia low BMI/weight - has been stable since her high school days , with some weight loss this hospitalization Poor Swallow- currently on NGT, failed barium swallow, PEG ? will consult GI -Anemia-, metastatic lesion, primary? Anemia- will hold Iron till GI sees the patient Paliative care Physical Debility CVA with right sided weakness PT
--- NOTE | 2018-04-17 14:44 | RAD ---
Date of service: 04/17/2018 PROCEDURE: Modified barium swallow study. HISTORY: Dysphagia/CVA COMPARISON: None available. TECHNIQUE: Under fluoroscopic guidance, the patient ingested various consistencies of barium. Examination was performed in conjunction with speech pathology department FINDINGS: There was aspiration with thin barium with straw and puree consistency barium. The total fluoroscopic time was 1.3 minutes. IMPRESSION: Aspiration with thin barium and puree consistency barium. Please refer to the detailed report and recommendations of the speech pathologist.
--- NOTE | 2018-04-17 15:50 | CP.PCM.PN ---
Subjective - Date & Time of Evaluation Date of Evaluation: 04/17/18 Time of Evaluation: 15:50 - Subjective Subjective: pt is seen and examined, follow up consult is dictated#[id number] decrease ivf to 42 ml/min for 24 hrs then d/c ivf Objective - Vital Signs/Intake and Output Vital Signs (last 24 hours): Temp Pulse Resp BP Pulse Ox 97.6 F 69 20 134/83 98 04/17/18 07:00 04/17/18 07:00 04/17/18 07:00 04/17/18 07:00 04/17/18 07:00 - Medications Medications: Current Medications Apixaban (Eliquis) 2.5 mg PO BID [facility] Last Admin: 04/17/18 10:30 Dose: 2.5 mg Aspirin (Aspirin Chewable) 81 mg PO DAILY [facility] Last Admin: 04/17/18 10:30 Dose: 81 mg Diltiazem HCl (Cardizem) 30 mg PO QID [facility] Last Admin: 04/17/18 14:22 Dose: 30 mg Fluconazole (Diflucan Iv 200 Mg/100 Ml Ns) 100 mls @ 100 mls/hr IVPB Q24H [facility]; Protocol Last Admin: 04/16/18 17:55 Dose: 100 mls/hr Insulin Aspart (Novolog) 0 unit SC Q6H [facility]; Protocol Last Admin: 04/17/18 06:10 Dose: Not Given Levothyroxine Sodium (Synthroid) 100 mcg IVP DAILY@0630 [facility] Methylprednisolone (Solu-Medrol) 20 mg IVP DAILY [facility] Last Admin: 04/17/18 10:30 Dose: 20 mg Pantoprazole Sodium (Protonix Inj) 20 mg IVP DAILY [facility] Last Admin: 04/17/18 10:30 Dose: 20 mg Rosuvastatin Calcium (Crestor) 5 mg PO HS [facility] Last Admin: 04/16/18 23:00 Dose: 5 mg Vitamin A (Vitamin A & D Oint Ud Foilpak) 0.5 ea TOP Q4 PRN PRN Reason: Dry mouth Last Admin: 04/17/18 06:05 Dose: 0.5 ea - Labs Labs: 04/17/18 06:19 04/17/18 06:19 PT 11.1 SECONDS (9.7-12.2) 04/16/18 07:34 INR 1.0 04/16/18 07:34 APTT 24 SECONDS (21-34) 04/16/18 07:34
--- NOTE | 2018-04-17 18:04 | CP.PCM.PN ---
Subjective - Date & Time of Evaluation Date of Evaluation: 04/17/18 Time of Evaluation: 08:00 - Subjective Subjective: appears more alert denies fever no chest pain or sob Objective - Vital Signs/Intake and Output Vital Signs (last 24 hours): Temp Pulse Resp BP Pulse Ox 97.9 F 72 20 122/77 97 04/17/18 16:00 04/17/18 16:00 04/17/18 16:00 04/17/18 16:00 04/17/18 16:00 - Medications Medications: Current Medications Apixaban (Eliquis) 2.5 mg PO BID [facility] Last Admin: 04/17/18 10:30 Dose: 2.5 mg Aspirin (Aspirin Chewable) 81 mg PO DAILY [facility] Last Admin: 04/17/18 10:30 Dose: 81 mg Diltiazem HCl (Cardizem) 30 mg PO QID [facility] Last Admin: 04/17/18 14:22 Dose: 30 mg Fluconazole (Diflucan Iv 200 Mg/100 Ml Ns) 100 mls @ 100 mls/hr IVPB Q24H [facility]; Protocol Last Admin: 04/16/18 17:55 Dose: 100 mls/hr Insulin Aspart (Novolog) 0 unit SC Q6H [facility]; Protocol Last Admin: 04/17/18 06:10 Dose: Not Given Levothyroxine Sodium (Synthroid) 100 mcg IVP DAILY@0630 [facility] Methylprednisolone (Solu-Medrol) 20 mg IVP DAILY [facility] Last Admin: 04/17/18 10:30 Dose: 20 mg Pantoprazole Sodium (Protonix Inj) 20 mg IVP DAILY [facility] Last Admin: 04/17/18 10:30 Dose: 20 mg Rosuvastatin Calcium (Crestor) 5 mg PO HS [facility] Last Admin: 04/16/18 23:00 Dose: 5 mg Vitamin A (Vitamin A & D Oint Ud Foilpak) 0.5 ea TOP Q4 PRN PRN Reason: Dry mouth Last Admin: 04/17/18 06:05 Dose: 0.5 ea - Labs Labs: 04/17/18 06:19 04/17/18 06:19 PT 11.1 SECONDS (9.7-12.2) 04/16/18 07:34 INR 1.0 04/16/18 07:34 APTT 24 SECONDS (21-34) 04/16/18 07:34 - Constitutional Appears: No Acute Distress, Confused, Cachectic, Chronically Ill - Head Exam Head Exam: NORMOCEPHALIC - Eye Exam Eye Exam: absent: Scleral icterus Pupil Exam: NORMAL ACCOMODATION - ENT Exam ENT Exam: Mucous Membranes Dry - Neck Exam Neck Exam: absent: Lymphadenopathy - Respiratory Exam Respiratory Exam: Decreased Breath Sounds, Prolonged Expiratory Phase, Rhonchi - Cardiovascular Exam Cardiovascular Exam: REGULAR RHYTHM, +S1, +S2 - GI/Abdominal Exam GI & Abdominal Exam: Distended, Soft. absent: Tenderness - Rectal Exam Rectal Exam: Deferred - Exam Exam: NORMAL INSPECTION - Extremities Exam Extremities Exam: absent: Pedal Edema - Back Exam Back Exam: absent: CVA tenderness (L), CVA tenderness (R), paraspinal tenderness - Neurological Exam Neurological Exam: Alert, Altered, Awake, CN II-XII Intact Neuro motor strength exam: Left Upper Extremity: 4, Right Upper Extremity: 3, Left Lower Extremity: 4, Right Lower Extremity: 3 - Psychiatric Exam Psychiatric exam: Depressed - Skin Skin Exam: Dry Assessment and Plan (1) Acute respiratory failure with hypoxia and hypercapnia Status: Acute (2) Metastatic cancer Status: Acute (3) COPD exacerbation Status: Acute (4) Cachexia Status: Acute (5) CVA (cerebral vascular accident) Status: Acute - Assessment and Plan (Free Text) Assessment: 67 yo woman with history of recent CVA with right sided weakness , recent ACS requiring coronary stents , transferred from rehab when she c/o chest and sternal pain, EMS called in by rehab, intubated in the field She is now currently extubated, follows simple commands, nonverbal and unable to swallow. Work up revealed large right thyroid mass, with mass effect on the trachea and the esophagus, bone scan with diffuse lytic lesions throughout the skeleton, including calvarium, sternum, ribs, spine, femurs. Patient is severely cachectic ( BMI 13 ) aphasic prognosis guarded
[2018-04-17] MEDS: Fluconazole IV 200mg/100 ml NS 100 ML IVPB SCH (18:37)
--- NOTE | 2018-04-17 19:00 | PN ---
DATE: 04/17/2018 ENDOCRINOLOGY FOLLOWUP NOTE LOCATION: Room 652. SUBJECTIVE: This is a 67-year-old female with recent acute CVA and expressive aphasia and also undergoing neurological and GI workup and also metabolic workup at this time for multiple comorbid conditions, significant of which is the possibility of metastatic carcinoma of unknown primary at this time as noted. She also has underlying multinodular goiter with a dominant right thyroid nodule and awaiting a fine-needle aspiration biopsy following a cardiac cath procedure as noted. She also has evidence of diffuse bony metastasis in multiple areas as noted with concomitant elevated GI cancer markers also as noted. LABORATORY DATA: Her latest chemistry showed a BUN of 53, sodium 137, potassium 4.2, chloride 106, CO2 of 27, glucose 148, and creatinine 0.8. The repeat thyroid study showed further evidence of overt hypothyroidism with a total T4 of 2.76 and the TSH of 20.30 and a free T4 of 0.49. With the ongoing NG tube insertion, she may not be really absorbing the levothyroxine given by NG tube as noted. PLAN: So at this time, we will switch her over to parenteral levothyroxine replacement therapy with a dose of 100 mcg IV push once daily in the morning as ordered. We will obtain serial chemistries and supplement accordingly as needed. We are also awaiting the assessment of Oncology at this point in time and also for further GI workup if at all possible. We are also awaiting the reports of the thyroid antibodies which will confirm and indicate the presence of underlying thyroid autoimmunity. We will follow. Akiko Erazo MD
--- NOTE | 2018-04-18 01:21 | PN ---
DATE: 04/17/2018 FOLLOWUP RENAL CONSULTATION LOCATION: The patient is located in room 652, bed B. REQUESTED BY: Dr. Libia Brady. REASON FOR FOLLOWUP: Acute renal failure, hyponatremia. SUBJECTIVE: Mrs. Gonzalez is a 67-year-old elderly, very thin-built, cachectic [place] female with a history of coronary artery disease, status post stent placement, CVA and COPD, dysarthria, who was admitted from the alf with altered mental status and respiratory failure requiring intubation in the field and admitted to ICU. Subsequently, the patient was extubated and status post vigorous diuresis with acute renal failure and hyponatremia. The patient was started on IV fluids of D5W at 70 mL/hour. The patient is feeling much better and not in acute distress. Denies any complaints. The patient has dysarthria. PHYSICAL EXAMINATION: VITAL SIGNS: As follows: Blood pressure 122/77, pulse 72, respirations 20, temperature 97.9, saturation 97%. Height 5 feet 3 inches, weight is 79 pounds. GENERAL: Mrs. Gonzalez is a 67-year-old elderly female, thin-built, not in distress. HEENT: Pupils normal, react to light and accommodation. Conjunctivae pink. Sclerae anicteric. Tongue is moist. Trachea is midline. LUNGS: Symmetric on both sides. Bilateral breath sounds present. Clear to auscultation. CARDIOVASCULAR SYSTEM: [place] at the fifth intercostal space, midclavicular line. S1, S2 audible. No murmur or gallop. ABDOMEN: Normal in appearance. Soft, tympanitic. No guarding, no rigidity. No hepatosplenomegaly. CENTRAL NERVOUS SYSTEM: The patient is awake, following simple commands, dysarthria. EXTREMITIES: No cyanosis, no clubbing, no edema. SKIN: Turgor is normal now. CURRENT MEDICATIONS: Include as follows: Aspirin 81 mg daily, diltiazem 30 mg p.o. four times a day, Crestor 5 mg at bedtime, fluconazole 200 mg IV piggyback every 24 hours, Eliquis 2.5 mg p.o. b.i.d., multivitamins, NovoLog for sliding scale, Protonix at 20 mg IV daily, Solu-Medrol 20 mg IV daily, Synthroid 100 mcg IV daily, vitamin A and D ointment topical every 4 hours p.r.n. LABORATORY DATA: Includes as follows: As of 04/17/2018, WBC 14.8, hemoglobin 8.8, hematocrit is 27.8, platelets 236. Neutrophils 93, bands 3, lymph 2, monos 2. Sodium 137, potassium 4.2, chloride 106, CO2 of 27, BUN 33 and creatinine 0.8 and calcium is 9.2, glucose 148, phosphorus 2.5 and magnesium is 2.1. Total bili 0.5, AST 24, ALT 23, alkaline phosphatase 96, total protein 5.5, albumin is 2.9 and free thyroxine is 0.49, and thyroxine is 2.76 and TSH is 20.3. ASSESSMENT AND PLAN: In summary, Mrs. Gonzalez is a 67-year-old elderly, very thin-built, cachectic [place] female with a history of coronary artery disease, cerebrovascular accident, chronic obstructive pulmonary disease, status post extubation and metastatic disease in the bones and questionable lungs with elevated CA-125 and CA19-9. 1. Status post hyponatremia. Serum sodium improved nicely with D5W. 2. Acute renal failure, now renal function improving, almost back to her baseline. 3. Metastatic bone disease. The etiology is not clear. Rule out thyroid malignancy, rule out pancreatic carcinoma, rule out ovarian carcinoma. Continue to monitor. Continue to follow up with Hematology-Oncology. 4. Cerebrovascular accident with dysarthria. 5. Coronary artery disease, status post stent placement. 6. Chronic obstructive pulmonary disease. Continue to monitor electrolytes and decrease intravenous fluids to 42 mL/hour. We will follow with you. Thank you for allowing me to participate in your patient's care. Jose Angel Adams MD
[2018-04-18 06:21] LABS: BASO % 0.2 % (0.0-2.0); EOS # 0.2 K/uL (0.0-0.7); EOS % 1.6 % (0.0-4.0); HEMOGLOBIN 9.1 g/dL (11.0-16.0); LYMPH # 0.7 K/uL (1.0-4.3); MEAN CELL VOLUME 95.4 fL (81.0-99.0); MEAN CORPUSCULAR HEMOGLOBIN 30.2 pg (27.0-31.0); MEAN CORPUSCULAR HGB CONC 31.6 g/dL (33.0-37.0); MEAN PLATELET VOLUME 10.2 fL (7.2-11.7); MONO # 0.7 K/uL (0.0-0.8); MONO % 5.3 % (0.0-10.0); NEUT # 12.5 K/uL (1.8-7.0); NEUT % 87.9 % (50.0-75.0); NRBC % 0.1 % (0.0-2.0); PLATELET COUNT 253 K/uL (130-400); RBC 3.02 Mil/uL (3.80-5.20); RED CELL DISTRIBUTION WIDTH 14.4 % (11.5-14.5); WHITE BLOOD COUNT 14.2 K/uL (4.8-10.8)
[2018-04-18] MEDS: (Novolog) Insulin Aspart, Recombinant 100 u/ml 10 ml vial SC SCH ×4 (06:27→23:49)
--- NOTE | 2018-04-18 08:27 | CP.PCM.CON ---
History of Present Illness - History of Present Illness History of Present Illness: CC: anemia, bone metastases of unknown primary HPI: 67 yo woman with complicated medical history, S/P recent coronary stenting 2 weeks ago, recent CVA's AFib, recent intubation, now with pharyngeal dysphagia and aspiration on swallow eval, significant anemia, and bone scan showing widespread bone metastases. Pt has nodular thyroid. Difficult to obtain history from pt due to aphasia. No noted change in bowel habits or bleeding. Unknown mammogram status. Pt is on Eliquis. Discussed with Dr Reilly. Review of Systems - Review of Systems Systems not reviewed;Unavailable: Acuity of Condition Past Patient History - Infectious Disease Hx of Infectious Diseases: None - Past Medical History & Family History Past Medical History?: Yes - Past Social History Smoking Status: Never Smoked Chewing Tobacco Use: No Cigar Use: No Alcohol: None Home Situation {Lives}: With Family - CARDIAC Hx Hypertension: Yes - PULMONARY Hx Chronic Obstructive Pulmonary Disease (COPD): Yes - NEUROLOGICAL HX Cerebrovascular Accident: Yes - HEENT Hx HEENT Problems: No - RENAL Hx Chronic Kidney Disease: No - ENDOCRINE/METABOLIC Hx Endocrine Disorders: No - HEMATOLOGICAL/ONCOLOGICAL Hx Blood Disorders: No - INTEGUMENTARY Hx Dermatological Problems: No - MUSCULOSKELETAL/RHEUMATOLOGICAL Hx Musculoskeletal Disorders: No Hx Falls: No - GASTROINTESTINAL Hx Gastrointestinal Disorders: No - GENITOURINARY/GYNECOLOGICAL Hx Genitourinary Disorders: No - PSYCHIATRIC Hx Substance Use: No - SURGICAL HISTORY Hx Coronary Stent: Yes - ANESTHESIA Hx Anesthesia: No Meds Allergies/Adverse Reactions: Allergies Allergy/AdvReac Type Severity Reaction Status Date / Time No Known Allergies Allergy Verified 03/25/18 20:59 - Medications Medications: Current Medications Apixaban (Eliquis) 2.5 mg PO BID [facility] Last Admin: 04/17/18 18:36 Dose: 2.5 mg Aspirin (Aspirin Chewable) 81 mg PO DAILY [facility] Last Admin: 04/17/18 10:30 Dose: 81 mg Diltiazem HCl (Cardizem) 30 mg PO QID [facility] Last Admin: 04/17/18 22:09 Dose: 30 mg Fluconazole (Diflucan Iv 200 Mg/100 Ml Ns) 100 mls @ 100 mls/hr IVPB Q24H [facility]; Protocol Last Admin: 04/17/18 18:37 Dose: 100 mls/hr Insulin Aspart (Novolog) 0 unit SC Q6H [facility]; Protocol Last Admin: 04/18/18 06:27 Dose: Not Given Levothyroxine Sodium (Synthroid) 100 mcg IVP DAILY@0630 [facility] Methylprednisolone (Solu-Medrol) 20 mg IVP DAILY [facility] Last Admin: 04/17/18 10:30 Dose: 20 mg Multivitamins (Hexavitamin) 1 tab PO DAILY [facility] Pantoprazole Sodium (Protonix Inj) 20 mg IVP DAILY [facility] Last Admin: 04/17/18 10:30 Dose: 20 mg Rosuvastatin Calcium (Crestor) 5 mg PO HS [facility] Last Admin: 04/17/18 22:09 Dose: 5 mg Vitamin A (Vitamin A & D Oint Ud Foilpak) 0.5 ea TOP Q4 PRN PRN Reason: Dry mouth Last Admin: 04/17/18 06:05 Dose: 0.5 ea Physical Exam - Constitutional Appears: Cachectic, Chronically Ill - Head Exam Additional comments: bitemporal wasting NGT in place - Eye Exam Eye Exam: Normal appearance - Neck Exam Neck exam: Positive for: Normal Inspection. Negative for: Thyromegaly - Respiratory Exam Respiratory Exam: NORMAL BREATHING PATTERN - Cardiovascular Exam Cardiovascular Exam: REGULAR RHYTHM - GI/Abdominal Exam GI & Abdominal Exam: Soft. absent: Mass, Tenderness - Rectal Exam Rectal Exam: Deferred - Extremities Exam Extremities exam: Positive for: normal inspection - Back Exam Back exam: NORMAL INSPECTION - Neurological Exam Neurological exam: Alert, Oriented x3 Additional comments: aphasic - Psychiatric Exam Psychiatric exam: Normal Affect, Normal Mood - Skin Skin Exam: Normal Color Results - Vital Signs Recent Vital Signs: Last Vital Signs Temp 98.7 F 04/18/18 07:00 Pulse 79 04/18/18 08:00 Resp 20 04/18/18 07:00 BP 127/78 04/18/18 07:00 Pulse Ox 100 04/18/18 07:00 - Labs Result Diagrams: 04/18/18 06:17 04/17/18 06:19 Labs: Laboratory Results - last 24 hr 04/16/18 04/16/18 04/16/18 11:51 16:48 21:29 WBC RBC Hgb Hct MCV MCH MCHC RDW Plt Count MPV Neut % (Auto) Lymph % (Auto) [place] % (Auto) Eos % (Auto) Baso % (Auto) Neut # (Auto) Lymph # (Auto) [place] # (Auto) Eos # (Auto) Baso # (Auto) Neutrophils % (Manual) Band Neutrophils % Lymphocytes % (Manual) Monocytes % (Manual) Platelet Estimate Polychromasia Hypochromasia (manual) POC Glucose (mg/dL) 162 H 241 H 175 H 04/16/18 04/17/18 04/17/18 23:49 06:13 06:19 WBC RBC Hgb Hct MCV MCH MCHC RDW Plt Count MPV Neut % (Auto) Lymph % (Auto) [place] % (Auto) Eos % (Auto) Baso % (Auto) Neut # (Auto) Lymph # (Auto) [place] # (Auto) Eos # (Auto) Baso # (Auto) Neutrophils % (Manual) 93 H Band Neutrophils % 3 H Lymphocytes % (Manual) 2 L Monocytes % (Manual) 2 Platelet Estimate Normal Polychromasia Slight Hypochromasia (manual) Slight POC Glucose (mg/dL) 172 H 153 H 04/17/18 04/17/18 04/17/18 11:22 16:15 21:09 WBC RBC Hgb Hct MCV MCH MCHC RDW Plt Count MPV Neut % (Auto) Lymph % (Auto) [place] % (Auto) Eos % (Auto) Baso % (Auto) Neut # (Auto) Lymph # (Auto) [place] # (Auto) Eos # (Auto) Baso # (Auto) Neutrophils % (Manual) Band Neutrophils % Lymphocytes % (Manual) Monocytes % (Manual) Platelet Estimate Polychromasia Hypochromasia (manual) POC Glucose (mg/dL) 149 H 177 H 144 H 04/17/18 04/18/18 23:42 06:17 WBC 14.2 H RBC 3.02 L Hgb 9.1 L Hct 28.8 L MCV 95.4 MCH 30.2 MCHC 31.6 L RDW 14.4 Plt Count 253 MPV 10.2 Neut % (Auto) 87.9 H Lymph % (Auto) 5.0 L [place] % (Auto) 5.3 Eos % (Auto) 1.6 Baso % (Auto) 0.2 Neut # (Auto) 12.5 H Lymph # (Auto) 0.7 L [place] # (Auto) 0.7 Eos # (Auto) 0.2 Baso # (Auto) 0.0 Neutrophils % (Manual) Band Neutrophils % Lymphocytes % (Manual) Monocytes % (Manual) Platelet Estimate Polychromasia Hypochromasia (manual) POC Glucose (mg/dL) 117 H Assessment & Plan (1) Cachexia Status: Acute (2) Metastatic cancer Assessment and Plan: Bone metastases of unknown primary. Thyroid nodularity noted on scan Rec: Given her anticoagulation stautus, recent CVA and significant cardiovascular disease, pt is not an ideal candidate for endoscopic procedures. Will therefore recommend non-invasive workup to look for GI primary source of malignancy: CT scan, CEA, CA 19-9, stool OB. Consider obtaining mammogram if not recently done Status: Acute (3) Dysphagia as late effect of cerebrovascular accident (CVA) Assessment and Plan: Dependent on NG feeds. Followed by Speech pathologist. Would like to avoid PEG due to anticoagulant use- would need to be stopped and cleared by Dr Eldridge if PEG is eventually needed Status: Acute - Date & Time Date: 04/18/18 Time: 08:35
--- NOTE | 2018-04-18 08:58 | CP.PCM.PN ---
Subjective - Date & Time of Evaluation Date of Evaluation: 04/18/18 Time of Evaluation: 09:00 - Subjective Subjective: chart review vitals no new labs patient seen by GI GI discussion patient seen patient becoming vocal, some words becoming comprehensible wishes to go home discussed current situation prefer sub acute seen by paliative discussed GI work up- but notes by GI appreciated discussed with intermediate accountant goal for feeding currently - not good candidate for pEG, Scope Objective - Vital Signs/Intake and Output Vital Signs (last 24 hours): Temp Pulse Resp BP Pulse Ox 98.7 F 79 20 127/78 100 04/18/18 07:00 04/18/18 08:00 04/18/18 07:00 04/18/18 07:00 04/18/18 07:00 Intake and Output: 04/18/18 04/18/18 06:59 18:59 Intake Total 150 470 Output Total 320 Balance -170 470 - Medications Medications: Current Medications Apixaban (Eliquis) 2.5 mg PO BID [facility] Last Admin: 04/17/18 18:36 Dose: 2.5 mg Aspirin (Aspirin Chewable) 81 mg PO DAILY [facility] Last Admin: 04/17/18 10:30 Dose: 81 mg Diltiazem HCl (Cardizem) 30 mg PO QID [facility] Last Admin: 04/17/18 22:09 Dose: 30 mg Fluconazole (Diflucan Iv 200 Mg/100 Ml Ns) 100 mls @ 100 mls/hr IVPB Q24H [facility]; Protocol Last Admin: 04/17/18 18:37 Dose: 100 mls/hr Insulin Aspart (Novolog) 0 unit SC Q6H [facility]; Protocol Last Admin: 04/18/18 06:27 Dose: Not Given Levothyroxine Sodium (Synthroid) 100 mcg IVP DAILY@0630 [facility] Methylprednisolone (Solu-Medrol) 20 mg IVP DAILY [facility] Last Admin: 04/17/18 10:30 Dose: 20 mg Multivitamins (Hexavitamin) 1 tab PO DAILY [facility] Pantoprazole Sodium (Protonix Inj) 20 mg IVP DAILY [facility] Last Admin: 04/17/18 10:30 Dose: 20 mg Rosuvastatin Calcium (Crestor) 5 mg PO HS [facility] Last Admin: 04/17/18 22:09 Dose: 5 mg Vitamin A (Vitamin A & D Oint Ud Foilpak) 0.5 ea TOP Q4 PRN PRN Reason: Dry mouth Last Admin: 04/17/18 06:05 Dose: 0.5 ea - Labs Labs: 04/18/18 06:17 04/17/18 06:19 PT 11.1 SECONDS (9.7-12.2) 04/16/18 07:34 INR 1.0 04/16/18 07:34 APTT 24 SECONDS (21-34) 04/16/18 07:34 - Constitutional Appears: No Acute Distress, Chronically Ill (but is active, assist her in transferring from bed to cahir, can hold self alone ) - Head Exam Head Exam: NORMOCEPHALIC (in place) - Eye Exam Eye Exam: Normal appearance. absent: Nystagmus - ENT Exam ENT Exam: Mucous Membranes Dry - Neck Exam Neck Exam: Full ROM - Respiratory Exam Respiratory Exam: Decreased Breath Sounds, NORMAL BREATHING PATTERN - Cardiovascular Exam Cardiovascular Exam: REGULAR RHYTHM - GI/Abdominal Exam GI & Abdominal Exam: Soft, Normal Bowel Sounds. absent: Tenderness - Extremities Exam Extremities Exam: absent: Joint Swelling, Pedal Edema, Tenderness - Back Exam Back Exam: Full ROM. absent: rash noted - Neurological Exam Neurological Exam: Alert, Awake, Oriented x3 (able to move in bed, transfer to chair with support of , right side weak ) - Psychiatric Exam Psychiatric exam: Normal Affect, Normal Mood - Skin Skin Exam: Intact, Normal Color Assessment and Plan - Assessment and Plan (Free Text) Assessment: Patient with acute medical problems CVA with right sided weakness poor swallow- on NGT , PT , subacute Afib, CAD post stent- on antiplatelet Hypertension Anemia Thyroid mass presence of metastatic lesion to the bones further GI work up- discussion- as per GI notes Paliative care Subacute
[2018-04-18] MEDS: Levothyroxine 100 mcg (0.1 mg) Inj IVP SCH (09:30)
[2018-04-18 09:35] LABS: BANDS 6 % (0-2); EOSINOPHIL 3 % (0-4); LYMPHOCYTE 4 % (20-40); METAMYELOCYTE 1 % (0-0); MONOCYTE 6 % (0-10); NEUTROPHIL 80 % (50-75); NUCLEATED RED BLOOD CELL 1 % (0-0); PLATELET ESTIMATE NORMAL (NORMAL); TOTAL CELLS COUNTED 100
[2018-04-18 09:36] LABS: ANISOCYTOSIS SLIGHT; GIANT PLATELETS PRESENT; LARGE PLATELETS PRESENT; TOXIC GRANULATION PRESENT
[2018-04-18 09:37] LABS: HYPOCHROMIC SLIGHT
[2018-04-18 09:38] LABS: POLYCHROMIC SLIGHT
[2018-04-18] MEDS: MethylPREDNISolone 40 mg Vial IVP SCH (09:52)
[2018-04-18] MEDS: Multiple Vitamins Tab PO SCH (09:53)
--- NOTE | 2018-04-18 09:54 | PN ---
DATE: 04/18/2018 ENDOCRINOLOGY FOLLOWUP NOTE LOCATION: Room 652. SUBJECTIVE: This is a 67-year-old female with recent acute CVA with expressive aphasia and recent cerebellar infarction and evolving basal ganglia infarcts and is now being followed closely for metabolic management. She also has a concomitant multinodular goiter with tracheal compression and overt hypothyroidism. Started on levothyroxine replacement therapy. Because of the impaired obstruction given by the oral nasogastric tube mode of administration of her levothyroxine, we have switched her over to parenteral levothyroxine replacement therapy as given. She was also undergoing GI and oncologic workup for underlying malignancy with diffuse bony metastasis. LABORATORY DATA: Her latest chemistry showed a BUN of 33, sodium 137, potassium 4.2, chloride 106, CO2 of 27, glucose 148, and creatinine 0.8. Her glucose levels have ranged from 117-144 mg per dL. Her latest thyroid studies showed a T4 of 2.76 with a free T4 of 0.49 and a TSH of 20.30. ASSESSMENT AND PLAN: So at this time, we will start her on parenteral levothyroxine given as a 100 mcg intravenously push once daily in the morning starting today as ordered. We will obtain serial thyroid studies and titrate the dose regimen accordingly. We will follow and advise accordingly. Akiko Erazo MD
[2018-04-18] MEDS ORDERED: Levothyroxine 100 mcg (0.1 mg) Inj IVP SCH (10:00)
--- NOTE | 2018-04-18 12:51 | CP.PCM.PN ---
Subjective - Date & Time of Evaluation Date of Evaluation: 04/18/18 Time of Evaluation: 10:40 - Subjective Subjective: Patient seen and examined Lying comfortably in no distress Tolerating NG tube feeding Patient is awake Afebrile Objective - Vital Signs/Intake and Output Vital Signs (last 24 hours): Temp Pulse Resp BP Pulse Ox 98.7 F 79 20 127/78 100 04/18/18 07:00 04/18/18 08:00 04/18/18 07:00 04/18/18 07:00 04/18/18 07:00 Intake and Output: 04/18/18 04/18/18 06:59 18:59 Intake Total 150 470 Output Total 320 Balance -170 470 - Medications Medications: Current Medications Apixaban (Eliquis) 2.5 mg PO BID [facility] Last Admin: 04/18/18 09:52 Dose: 2.5 mg Aspirin (Aspirin Chewable) 81 mg PO DAILY [facility] Last Admin: 04/18/18 09:53 Dose: 81 mg Diltiazem HCl (Cardizem) 30 mg PO QID [facility] Last Admin: 04/18/18 09:53 Dose: 30 mg Fluconazole (Diflucan Iv 200 Mg/100 Ml Ns) 100 mls @ 100 mls/hr IVPB Q24H [facility]; Protocol Last Admin: 04/17/18 18:37 Dose: 100 mls/hr Insulin Aspart (Novolog) 0 unit SC Q6H [facility]; Protocol Last Admin: 04/18/18 11:55 Dose: Not Given Levothyroxine Sodium (Synthroid) 100 mcg IVP DAILY@0630 [facility] Last Admin: 04/18/18 09:30 Dose: 100 mcg Methylprednisolone (Solu-Medrol) 20 mg IVP DAILY [facility] Last Admin: 04/18/18 09:52 Dose: 20 mg Multivitamins (Hexavitamin) 1 tab PO DAILY [facility] Last Admin: 04/18/18 09:53 Dose: 1 tab Pantoprazole Sodium (Protonix Inj) 20 mg IVP DAILY [facility] Last Admin: 04/18/18 09:52 Dose: 20 mg Rosuvastatin Calcium (Crestor) 5 mg PO HS [facility] Last Admin: 04/17/18 22:09 Dose: 5 mg Vitamin A (Vitamin A & D Oint Ud Foilpak) 0.5 ea TOP Q4 PRN PRN Reason: Dry mouth Last Admin: 04/17/18 06:05 Dose: 0.5 ea - Labs Labs: 04/18/18 06:17 04/17/18 06:19 PT 11.1 SECONDS (9.7-12.2) 04/16/18 07:34 INR 1.0 04/16/18 07:34 APTT 24 SECONDS (21-34) 04/16/18 07:34 - Head Exam Head Exam: ATRAUMATIC, NORMOCEPHALIC - ENT Exam ENT Exam: Mucous Membranes Moist - Neck Exam Neck Exam: Normal Inspection - Respiratory Exam Respiratory Exam: Decreased Breath Sounds Assessment and Plan (1) CVA (cerebral vascular accident) Status: Acute (2) Metastatic cancer Status: Acute (3) COPD exacerbation Assessment & Plan: Continue steroids Nebulizer treatment as needed Status: Acute
[2018-04-18] MEDS ORDERED: Iohexol 240 (50 ml) PO ONE (13:15)
--- NOTE | 2018-04-18 16:52 | CT ---
Date of service: 04/18/2018 PROCEDURE: CT Abdomen and Pelvis with Oral contrast. HISTORY: bone metastases, anemia. R/O GI malignancy COMPARISON: None. TECHNIQUE: Contiguous axial images of the abdomen and pelvis. Oral contrast was administered. No IV contrast given. Coronal and Sagittal reformats generated. Radiation dose: Total exam DLP = 207.36 mGy-cm. This CT exam was performed using one or more of the following dose reduction techniques: Automated exposure control, adjustment of the mA and/or kV according to patient size, and/or use of iterative reconstruction technique. FINDINGS: LOWER THORAX: There is a trace left pleural effusion associated with pleural thickening. The heart is mildly to moderately enlarged. There is LIVER: Limited assessment of the upper abdomen solid organs without IV contrast administration and due to motion artifacts. No evidence of mass lesion in the liver. GALLBLADDER AND BILE DUCTS: The gallbladder is mildly to moderately distended. PANCREAS: The pancreas is not well visualized. However there is no evidence of dilated main pancreatic duct. SPLEEN: Unremarkable. No splenomegaly. ADRENALS: Unremarkable. KIDNEYS AND URETERS: Unremarkable. No stone or hydronephrosis. BLADDER: Grossly unremarkable. REPRODUCTIVE: Unremarkable. APPENDIX: There is no evidence of appendicitis. BOWEL: The stomach is not distended. However there is suspicious for diffuse gastric wall thickening. No evidence of obstructing mass lesion in the bowel. The contrast seen in the distal large bowel. The small bowel loops are not dilated. Possible distal rectal wall thickening or rectal/anal mass. PERITONEUM: Unremarkable. No fluid collection. No free air. LYMPH NODES: Unremarkable. No enlarged lymph nodes. VASCULATURE: Unremarkable. No aortic aneurysm. There is diffuse atherosclerotic calcification in the abdominal aorta and iliac arteries. BONES: There are scattered lytic bony lesions noted suggestive of osseous metastasis OTHER FINDINGS: None. IMPRESSION: Suspicious for gastric wall thickening. Suspicious for distal rectum/rectoanal wall thickening. Trace left pleural effusion and pleural thickening noted. Multiple lytic bony lesion suggestive of osseous metastasis.
[2018-04-18] MEDS: Fluconazole IV 200mg/100 ml NS 100 ML IVPB SCH (17:39)
--- NOTE | 2018-04-18 20:40 | CP.PCM.PN ---
Subjective - Date & Time of Evaluation Date of Evaluation: 04/18/18 Time of Evaluation: 13:05 - Subjective Subjective: Patient seen and evaluated No cardiac events noted Physical Examination - Constitutional Appears: No Acute Distress - Head Exam Head Exam: ATRAUMATIC, NORMOCEPHALIC - ENT Exam ENT Exam: Mucous Membranes Dry - Neck Exam Neck Exam: Full ROM. absent: Tenderness - Respiratory Exam Respiratory Exam: Decreased Breath Sounds (with slight congestion but improving sounds ), NORMAL BREATHING PATTERN - Cardiovascular Exam Cardiovascular Exam: REGULAR RHYTHM - GI/Abdominal Exam GI & Abdominal Exam: Soft, Normal Bowel Sounds. absent: Distended, Tenderness - Back Exam Back Exam: Full ROM - Neurological Exam Neurological Exam: Alert, Awake, Oriented x3 (weak righ side, slurred speech weak right corner mouth,) - Psychiatric Exam Psychiatric exam: Normal Affect, Normal Mood - Skin Skin Exam: Intact, Normal Color Assessment and Plan - Assessment and Plan (Free Text) Assessment: Patient with history of Hypertension with recent CVA-with right sided weakness CAD post stent on plavix aspirin PT Hypertension and Anxiety -adjust meds accordingly COPD/Emphysema admitted for Respiratory failure- with CXR_CHF, intubated in the field right clavicular fracture -follow up ortho extubated newCVA- further Neuro/cardio evaluation ongoing Metastatic Thyroid Ca Patient with paraxysmal A Fib/CVA High [id number] score On Eliquis 2.5 mg po bid Continue ASA 81 daily Plavix Stopped Objective - Vital Signs/Intake and Output Vital Signs (last 24 hours): Temp Pulse Resp BP Pulse Ox 97.6 F 69 20 132/81 100 04/18/18 15:20 04/18/18 16:00 04/18/18 15:20 04/18/18 15:20 04/18/18 15:20 Intake and Output: 04/18/18 04/19/18 18:59 06:59 Intake Total 470 Balance 470 - Medications Medications: Current Medications Apixaban (Eliquis) 2.5 mg PO BID [facility] Last Admin: 04/18/18 17:36 Dose: 2.5 mg Aspirin (Aspirin Chewable) 81 mg PO DAILY [facility] Last Admin: 04/18/18 09:53 Dose: 81 mg Diltiazem HCl (Cardizem) 30 mg PO QID [facility] Last Admin: 04/18/18 17:36 Dose: 30 mg Fluconazole (Diflucan Iv 200 Mg/100 Ml Ns) 100 mls @ 100 mls/hr IVPB Q24H [facility]; Protocol Last Admin: 04/18/18 17:39 Dose: 100 mls/hr Insulin Aspart (Novolog) 0 unit SC Q6H [facility]; Protocol Last Admin: 04/18/18 17:38 Dose: Not Given Levothyroxine Sodium (Synthroid) 100 mcg IVP DAILY@0630 [facility] Last Admin: 04/18/18 09:30 Dose: 100 mcg Methylprednisolone (Solu-Medrol) 20 mg IVP DAILY [facility] Last Admin: 04/18/18 09:52 Dose: 20 mg Multivitamins (Hexavitamin) 1 tab PO DAILY [facility] Last Admin: 04/18/18 09:53 Dose: 1 tab Pantoprazole Sodium (Protonix Inj) 20 mg IVP DAILY [facility] Last Admin: 04/18/18 09:52 Dose: 20 mg Rosuvastatin Calcium (Crestor) 5 mg PO HS [facility] Last Admin: 04/17/18 22:09 Dose: 5 mg Vitamin A (Vitamin A & D Oint Ud Foilpak) 0.5 ea TOP Q4 PRN PRN Reason: Dry mouth Last Admin: 04/17/18 06:05 Dose: 0.5 ea - Labs Labs: 04/18/18 06:17 04/17/18 06:19 PT 11.1 SECONDS (9.7-12.2) 04/16/18 07:34 INR 1.0 04/16/18 07:34 APTT 24 SECONDS (21-34) 04/16/18 07:34
--- NOTE | 2018-04-18 20:40 | CP.PCM.PN ---
Subjective - Date & Time of Evaluation Date of Evaluation: 04/17/18 Time of Evaluation: 18:15 - Subjective Subjective: Patient seen and evaluated No cardiac events noted Physical Examination - Constitutional Appears: No Acute Distress - Head Exam Head Exam: ATRAUMATIC, NORMOCEPHALIC - ENT Exam ENT Exam: Mucous Membranes Dry - Neck Exam Neck Exam: Full ROM. absent: Tenderness - Respiratory Exam Respiratory Exam: Decreased Breath Sounds (with slight congestion but improving sounds ), NORMAL BREATHING PATTERN - Cardiovascular Exam Cardiovascular Exam: REGULAR RHYTHM - GI/Abdominal Exam GI & Abdominal Exam: Soft, Normal Bowel Sounds. absent: Distended, Tenderness - Back Exam Back Exam: Full ROM - Neurological Exam Neurological Exam: Alert, Awake, Oriented x3 (weak righ side, slurred speech weak right corner mouth,) - Psychiatric Exam Psychiatric exam: Normal Affect, Normal Mood - Skin Skin Exam: Intact, Normal Color Assessment and Plan - Assessment and Plan (Free Text) Assessment: Patient with history of Hypertension with recent CVA-with right sided weakness CAD post stent on plavix aspirin PT Hypertension and Anxiety -adjust meds accordingly COPD/Emphysema admitted for Respiratory failure- with CXR_CHF, intubated in the field right clavicular fracture -follow up ortho extubated newCVA- further Neuro/cardio evaluation ongoing Metastatic Thyroid Ca Patient with paraxysmal A Fib/CVA High [id number] score On Eliquis 2.5 mg po bid Continue ASA 81 daily Plavix Stopped Objective - Vital Signs/Intake and Output Vital Signs (last 24 hours): Temp Pulse Resp BP Pulse Ox 97.6 F 69 20 132/81 100 04/18/18 15:20 04/18/18 16:00 04/18/18 15:20 04/18/18 15:20 04/18/18 15:20 Intake and Output: 04/18/18 04/19/18 18:59 06:59 Intake Total 470 Balance 470 - Medications Medications: Current Medications Apixaban (Eliquis) 2.5 mg PO BID [facility] Last Admin: 04/18/18 17:36 Dose: 2.5 mg Aspirin (Aspirin Chewable) 81 mg PO DAILY [facility] Last Admin: 04/18/18 09:53 Dose: 81 mg Diltiazem HCl (Cardizem) 30 mg PO QID [facility] Last Admin: 04/18/18 17:36 Dose: 30 mg Fluconazole (Diflucan Iv 200 Mg/100 Ml Ns) 100 mls @ 100 mls/hr IVPB Q24H [facility]; Protocol Last Admin: 04/18/18 17:39 Dose: 100 mls/hr Insulin Aspart (Novolog) 0 unit SC Q6H [facility]; Protocol Last Admin: 04/18/18 17:38 Dose: Not Given Levothyroxine Sodium (Synthroid) 100 mcg IVP DAILY@0630 [facility] Last Admin: 04/18/18 09:30 Dose: 100 mcg Methylprednisolone (Solu-Medrol) 20 mg IVP DAILY [facility] Last Admin: 04/18/18 09:52 Dose: 20 mg Multivitamins (Hexavitamin) 1 tab PO DAILY [facility] Last Admin: 04/18/18 09:53 Dose: 1 tab Pantoprazole Sodium (Protonix Inj) 20 mg IVP DAILY [facility] Last Admin: 04/18/18 09:52 Dose: 20 mg Rosuvastatin Calcium (Crestor) 5 mg PO HS [facility] Last Admin: 04/17/18 22:09 Dose: 5 mg Vitamin A (Vitamin A & D Oint Ud Foilpak) 0.5 ea TOP Q4 PRN PRN Reason: Dry mouth Last Admin: 04/17/18 06:05 Dose: 0.5 ea - Labs Labs: 04/18/18 06:17 04/17/18 06:19 PT 11.1 SECONDS (9.7-12.2) 04/16/18 07:34 INR 1.0 04/16/18 07:34 APTT 24 SECONDS (21-34) 04/16/18 07:34
[2018-04-19] MEDS: Vitamins A & D Oint UD Foilpak TOP PRN (06:05)
[2018-04-19] MEDS: Levothyroxine 100 mcg (0.1 mg) Inj IVP SCH (06:16)
[2018-04-19] MEDS: (Novolog) Insulin Aspart, Recombinant 100 u/ml 10 ml vial SC SCH ×3 (06:26→17:22)
[2018-04-19 08:08] LABS: BLOOD UREA NITROGEN 36 mg/dL (7-17); CALCIUM 9.5 mg/dl (8.6-10.4); GFR NON-AFRICAN AMERICAN > 60
--- NOTE | 2018-04-19 09:25 | CP.PCM.PN ---
Subjective - Date & Time of Evaluation Date of Evaluation: 04/19/18 Time of Evaluation: 10:20 - Subjective Subjective: chart review vitals noted stable no unusual event had CT abdomen patient seen in bed conversant awake alert wants to go home everyday- words are becoming clearer on speech and PT wants to place on wheelchair and go out of the room discussed with staff Objective - Vital Signs/Intake and Output Vital Signs (last 24 hours): Temp Pulse Resp BP Pulse Ox 97.5 F L 70 20 148/83 100 04/18/18 23:10 04/19/18 03:53 04/18/18 23:10 04/18/18 23:10 04/18/18 23:10 Intake and Output: 04/19/18 04/19/18 06:59 18:59 Intake Total 520 Balance 520 - Medications Medications: Current Medications Apixaban (Eliquis) 2.5 mg PO BID [facility] Last Admin: 04/18/18 17:36 Dose: 2.5 mg Aspirin (Aspirin Chewable) 81 mg PO DAILY [facility] Last Admin: 04/18/18 09:53 Dose: 81 mg Diltiazem HCl (Cardizem) 30 mg PO QID [facility] Last Admin: 04/18/18 21:34 Dose: 30 mg Fluconazole (Diflucan Iv 200 Mg/100 Ml Ns) 100 mls @ 100 mls/hr IVPB Q24H [facility]; Protocol Last Admin: 04/18/18 17:39 Dose: 100 mls/hr Insulin Aspart (Novolog) 0 unit SC Q6H [facility]; Protocol Last Admin: 04/19/18 06:26 Dose: Not Given Levothyroxine Sodium (Synthroid) 100 mcg IVP DAILY@0630 [facility] Last Admin: 04/19/18 06:16 Dose: 100 mcg Methylprednisolone (Solu-Medrol) 20 mg IVP DAILY [facility] Last Admin: 04/18/18 09:52 Dose: 20 mg Multivitamins (Hexavitamin) 1 tab PO DAILY [facility] Last Admin: 04/18/18 09:53 Dose: 1 tab Pantoprazole Sodium (Protonix Inj) 20 mg IVP DAILY [facility] Last Admin: 04/18/18 09:52 Dose: 20 mg Rosuvastatin Calcium (Crestor) 5 mg PO HS [facility] Last Admin: 04/18/18 21:34 Dose: 5 mg Vitamin A (Vitamin A & D Oint Ud Foilpak) 0.5 ea TOP Q4 PRN PRN Reason: Dry mouth Last Admin: 04/19/18 06:05 Dose: 0.5 ea - Labs Labs: 04/18/18 06:17 04/19/18 07:38 PT 11.1 SECONDS (9.7-12.2) 04/16/18 07:34 INR 1.0 04/16/18 07:34 APTT 24 SECONDS (21-34) 04/16/18 07:34 - Constitutional Appears: Non-toxic, No Acute Distress, Chronically Ill (but is awake alert oriented ) - Head Exam Head Exam: ATRAUMATIC, NORMOCEPHALIC (right face weaker , with slurred speech but becoming clearer everyday ) - Eye Exam Eye Exam: Normal appearance. absent: Nystagmus - ENT Exam ENT Exam: Mucous Membranes Moist - Respiratory Exam Respiratory Exam: Decreased Breath Sounds - Cardiovascular Exam Cardiovascular Exam: REGULAR RHYTHM - GI/Abdominal Exam GI & Abdominal Exam: Soft, Normal Bowel Sounds. absent: Distended, Tenderness - Extremities Exam Extremities Exam: absent: Joint Swelling, Pedal Edema, Tenderness - Back Exam Back Exam: absent: rash noted, tenderness - Neurological Exam Neurological Exam: Alert, Awake, Oriented x3 (with right sided weakness but is able totarnsfer from bed to chair with support ) - Psychiatric Exam Psychiatric exam: Normal Affect, Normal Mood - Skin Skin Exam: Intact, Normal Color Assessment and Plan - Assessment and Plan (Free Text) Assessment: Patient with multiple acute medical problems CAD CVA with slurred speech and right sideed weakness AFIB Respiratoy Failure Debility with positive attitude with daily improvement GI discussion- as per note currently on NGT feeding- chronic use and complications discussed with patient and discussion for sub acute rehab
[2018-04-19] MEDS: MethylPREDNISolone 40 mg Vial IVP SCH (10:08)
[2018-04-19] MEDS: Multiple Vitamins Tab PO SCH (10:09)
--- NOTE | 2018-04-19 11:19 | CP.PCM.PN ---
Subjective - Date & Time of Evaluation Date of Evaluation: 04/19/18 Time of Evaluation: 11:16 - Subjective Subjective: CA 19-9 markedly elevated, highly suggestive of Pancreatic Cancer CT- gastric and rectal thickening, but without IV contarst (elevated BUN) so Pancreas not well visualized Dependent on NG feeds. weak, weight loss D/W Objective - Vital Signs/Intake and Output Vital Signs (last 24 hours): Temp Pulse Resp BP Pulse Ox 97.9 F 93 H 20 147/88 100 04/19/18 07:30 04/19/18 09:00 04/19/18 07:30 04/19/18 07:30 04/19/18 07:30 Intake and Output: 04/19/18 04/19/18 06:59 18:59 Intake Total 520 Balance 520 - Medications Medications: Current Medications Apixaban (Eliquis) 2.5 mg PO BID [facility] Last Admin: 04/19/18 10:09 Dose: 2.5 mg Aspirin (Aspirin Chewable) 81 mg PO DAILY [facility] Last Admin: 04/19/18 10:09 Dose: 81 mg Diltiazem HCl (Cardizem) 30 mg PO QID [facility] Last Admin: 04/19/18 10:09 Dose: 30 mg Ferrous Gluconate (Fergon) 324 mg PO TID [facility] Fluconazole (Diflucan Iv 200 Mg/100 Ml Ns) 100 mls @ 100 mls/hr IVPB Q24H [facility]; Protocol Last Admin: 04/18/18 17:39 Dose: 100 mls/hr Insulin Aspart (Novolog) 0 unit SC Q6H [facility]; Protocol Last Admin: 04/19/18 06:26 Dose: Not Given Levothyroxine Sodium (Synthroid) 100 mcg IVP DAILY@0630 [facility] Last Admin: 04/19/18 06:16 Dose: 100 mcg Methylprednisolone (Solu-Medrol) 20 mg IVP DAILY [facility] Last Admin: 04/19/18 10:08 Dose: 20 mg Multivitamins (Hexavitamin) 1 tab PO DAILY [facility] Last Admin: 04/19/18 10:09 Dose: 1 tab Pantoprazole Sodium (Protonix Inj) 20 mg IVP DAILY [facility] Last Admin: 04/19/18 10:08 Dose: 20 mg Rosuvastatin Calcium (Crestor) 5 mg PO HS [facility] Last Admin: 04/18/18 21:34 Dose: 5 mg Vitamin A (Vitamin A & D Oint Ud Foilpak) 0.5 ea TOP Q4 PRN PRN Reason: Dry mouth Last Admin: 04/19/18 06:05 Dose: 0.5 ea - Labs Labs: 04/18/18 06:17 04/19/18 07:38 PT 11.1 SECONDS (9.7-12.2) 04/16/18 07:34 INR 1.0 04/16/18 07:34 APTT 24 SECONDS (21-34) 04/16/18 07:34 - Constitutional Appears: Cachectic - Head Exam Additional comments: bitemporal wasting - ENT Exam Additional comments: NG tube - Respiratory Exam Respiratory Exam: NORMAL BREATHING PATTERN - Cardiovascular Exam Cardiovascular Exam: REGULAR RHYTHM - GI/Abdominal Exam GI & Abdominal Exam: Soft. absent: Tenderness Assessment and Plan (1) Cachexia Assessment & Plan: Suspect underlying malignancy with bony metastases Status: Acute (2) Metastatic cancer Assessment & Plan: Elevated CA 19-9 highly suggestive of Pancreas Malignancy. CT done without IV contrast due to renal disease, and Pancreas not well visualized. Subtle findings suggested in stomach and rectum. Pt is quite cachectic and not ideal condition to undergo colonoscopy, EGD, PEG, etc Will order abdominal sonogram Consider Oncology evaluation and Mammogram Check stool OB Status: Acute (3) Dysphagia as late effect of cerebrovascular accident (CVA) Assessment & Plan: dysphagia at present due to CVA If PEG needed, will need to be off anticoagulants Status: Acute
--- NOTE | 2018-04-19 16:52 | CP.PCM.PN ---
Subjective - Date & Time of Evaluation Date of Evaluation: 04/19/18 Time of Evaluation: 08:00 - Subjective Subjective: events noted possible pancreatic CA work up in progress remains afebrile Objective - Vital Signs/Intake and Output Vital Signs (last 24 hours): Temp Pulse Resp BP Pulse Ox 97.9 F 78 20 147/88 100 04/19/18 07:30 04/19/18 15:59 04/19/18 07:30 04/19/18 07:30 04/19/18 07:30 Intake and Output: 04/19/18 04/19/18 06:59 18:59 Intake Total 520 Balance 520 - Medications Medications: Current Medications Apixaban (Eliquis) 2.5 mg PO BID [facility] Last Admin: 04/19/18 10:09 Dose: 2.5 mg Aspirin (Aspirin Chewable) 81 mg PO DAILY [facility] Last Admin: 04/19/18 10:09 Dose: 81 mg Diltiazem HCl (Cardizem) 30 mg PO QID [facility] Last Admin: 04/19/18 13:11 Dose: 30 mg Ferrous Gluconate (Fergon) 324 mg PO TID [facility] Last Admin: 04/19/18 13:12 Dose: 324 mg Fluconazole (Diflucan Iv 200 Mg/100 Ml Ns) 100 mls @ 100 mls/hr IVPB Q24H [facility]; Protocol Last Admin: 04/18/18 17:39 Dose: 100 mls/hr Insulin Aspart (Novolog) 0 unit SC Q6H [facility]; Protocol Last Admin: 04/19/18 12:15 Dose: Not Given Levothyroxine Sodium (Synthroid) 100 mcg IVP DAILY@0630 [facility] Last Admin: 04/19/18 06:16 Dose: 100 mcg Methylprednisolone (Solu-Medrol) 20 mg IVP DAILY [facility] Last Admin: 04/19/18 10:08 Dose: 20 mg Multivitamins (Hexavitamin) 1 tab PO DAILY [facility] Last Admin: 04/19/18 10:09 Dose: 1 tab Pantoprazole Sodium (Protonix Inj) 20 mg IVP DAILY [facility] Last Admin: 04/19/18 10:08 Dose: 20 mg Rosuvastatin Calcium (Crestor) 5 mg PO HS [facility] Last Admin: 04/18/18 21:34 Dose: 5 mg Vitamin A (Vitamin A & D Oint Ud Foilpak) 0.5 ea TOP Q4 PRN PRN Reason: Dry mouth Last Admin: 04/19/18 06:05 Dose: 0.5 ea - Labs Labs: 04/18/18 06:17 04/19/18 07:38 PT 11.1 SECONDS (9.7-12.2) 04/16/18 07:34 INR 1.0 04/16/18 07:34 APTT 24 SECONDS (21-34) 04/16/18 07:34 - Constitutional Appears: Non-toxic, Chronically Ill - Head Exam Head Exam: NORMOCEPHALIC - Eye Exam Eye Exam: absent: Scleral icterus - ENT Exam ENT Exam: Mucous Membranes Dry - Neck Exam Neck Exam: absent: Lymphadenopathy - Respiratory Exam Respiratory Exam: Decreased Breath Sounds - Cardiovascular Exam Cardiovascular Exam: REGULAR RHYTHM - GI/Abdominal Exam GI & Abdominal Exam: Distended, Soft - Rectal Exam Rectal Exam: Deferred - Exam Exam: NORMAL INSPECTION - Back Exam Back Exam: absent: CVA tenderness (R) - Neurological Exam Neurological Exam: Alert, Altered, Awake, Oriented x3 Assessment and Plan (1) Acute respiratory failure with hypoxia and hypercapnia Status: Acute (2) Metastatic cancer Status: Acute (3) COPD exacerbation Status: Acute (4) Cachexia Status: Acute (5) CVA (cerebral vascular accident) Status: Acute
--- NOTE | 2018-04-19 16:54 | US ---
Date of service: 04/19/2018 HISTORY: elevated pancreas cancer seromarker COMPARISON: Comparison is made with the previous CT dated 04/18/2018 TECHNIQUE: Sonographic evaluation of the abdomen. FINDINGS: LIVER: Measures 12.85 cm. Normal echogenicity of the liver parenchyma. No mass. No intrahepatic bile duct dilatation. GALLBLADDER: Unremarkable. No gallstones. COMMON BILE DUCT: Measures 7.9 mm. No stones. No dilatation. PANCREAS: Unremarkable as visualized. No mass. No ductal dilatation. RIGHT KIDNEY: Measures 9.6 x 4.2 x 4.9cm. Normal echogenicity. No calculus, mass, or hydronephrosis. LEFT KIDNEY: Measures 8.9 x 4.9 x 4.7cm. Normal echogenicity. No calculus, mass, or hydronephrosis. SPLEEN: Normal in size and contour. No mass. AORTA: No aneurysmal dilatation. IVC: Unremarkable. OTHER FINDINGS: None. IMPRESSION: Prominent common bile duct measures up to 7.9 millimeter. Otherwise grossly unremarkable ultrasound examination of the abdomen.
--- NOTE | 2018-04-19 16:55 | PN ---
DATE: 04/19/2018 ENDO FOLLOWUP NOTE LOCATION: Room 652. SUBJECTIVE: This is a 67-year-old with recent overt hypothyroidism with underlying multinodular goiter and currently receiving and tolerating the parenteral levothyroxine replacement therapy as given. She also has some ongoing NG tube feedings because of generalized body weakness and difficulty with swallowing with an ongoing GI workup for a possible pancreatic carcinoma as noted. Her CA19-9 is extremely elevated as noted. LABORATORY DATA: Her chemistries today showed a BUN of 36, sodium 140, potassium 4.3, chloride 105, CO2 33, glucose 112 and creatinine 0.9. Her glucose levels have ranged from 113 to 185 mg/dL with ongoing IV steroids given as Solu-Medrol at 20 mg IV once daily as given. Her latest thyroid studies showed a T4 of 2.76 with a TSH of 20.30 and a free T4 of 0.49. Her CA 19-9 is over 5000 as noted. ASSESSMENT AND PLAN: So at this time, we will continue the levothyroxine given as a 100 mcg intravenously push once daily in the morning as ordered. We will obtain serial chemistries and supplement accordingly as needed. We will also obtain serial thyroid studies and titrate the dose regimen accordingly. The fine needle aspiration biopsy has been deferred at this time as noted. We will follow. Akiko Erazo MD
[2018-04-19] MEDS: Fluconazole IV 200mg/100 ml NS 100 ML IVPB SCH (17:34)
--- NOTE | 2018-04-19 17:56 | CP.PCM.PN ---
Subjective - Date & Time of Evaluation Date of Evaluation: 04/19/18 Time of Evaluation: 16:20 - Subjective Subjective: Patient seen and examined Appears congested Very high CA 199 level Patient is awake but unable to talk Objective - Vital Signs/Intake and Output Vital Signs (last 24 hours): Temp Pulse Resp BP Pulse Ox 97.4 F L 77 22 139/92 H 100 04/19/18 16:00 04/19/18 16:00 04/19/18 16:00 04/19/18 16:00 04/19/18 16:00 Intake and Output: 04/19/18 04/19/18 06:59 18:59 Intake Total 520 Balance 520 - Medications Medications: Current Medications Apixaban (Eliquis) 2.5 mg PO BID [facility] Last Admin: 04/19/18 17:34 Dose: 2.5 mg Aspirin (Aspirin Chewable) 81 mg PO DAILY [facility] Last Admin: 04/19/18 10:09 Dose: 81 mg Diltiazem HCl (Cardizem) 30 mg PO QID [facility] Last Admin: 04/19/18 17:35 Dose: 30 mg Ferrous Gluconate (Fergon) 324 mg PO TID [facility] Fluconazole (Diflucan Iv 200 Mg/100 Ml Ns) 100 mls @ 100 mls/hr IVPB Q24H [facility]; Protocol Last Admin: 04/19/18 17:34 Dose: 100 mls/hr Insulin Aspart (Novolog) 0 unit SC Q6H [facility]; Protocol Last Admin: 04/19/18 17:22 Dose: Not Given Levothyroxine Sodium (Synthroid) 100 mcg IVP DAILY@0630 [facility] Last Admin: 04/19/18 06:16 Dose: 100 mcg Methylprednisolone (Solu-Medrol) 20 mg IVP DAILY [facility] Last Admin: 04/19/18 10:08 Dose: 20 mg Multivitamins (Hexavitamin) 1 tab PO DAILY [facility] Last Admin: 04/19/18 10:09 Dose: 1 tab Pantoprazole Sodium (Protonix Inj) 20 mg IVP DAILY [facility] Last Admin: 04/19/18 10:08 Dose: 20 mg Rosuvastatin Calcium (Crestor) 5 mg PO HS [facility] Last Admin: 04/18/18 21:34 Dose: 5 mg Vitamin A (Vitamin A & D Oint Ud Foilpak) 0.5 ea TOP Q4 PRN PRN Reason: Dry mouth Last Admin: 04/19/18 06:05 Dose: 0.5 ea - Labs Labs: 04/18/18 06:17 04/19/18 07:38 PT 11.1 SECONDS (9.7-12.2) 04/16/18 07:34 INR 1.0 04/16/18 07:34 APTT 24 SECONDS (21-34) 04/16/18 07:34 - Head Exam Head Exam: ATRAUMATIC - Neck Exam Neck Exam: Normal Inspection - Respiratory Exam Respiratory Exam: Decreased Breath Sounds - GI/Abdominal Exam GI & Abdominal Exam: Soft, Normal Bowel Sounds Assessment and Plan (1) COPD exacerbation Assessment & Plan: Continue steroids and start nebulizer treatment GI workup rule out pancreatic Ca Status: Acute (2) CVA (cerebral vascular accident) Status: Acute (3) Metastatic cancer Status: Acute
[2018-04-19] MEDS: Ferrous Sulfate 300 mg/5 mL Liq UD PO SCH (18:29)
--- NOTE | 2018-04-19 20:48 | CP.PCM.PN ---
Subjective - Date & Time of Evaluation Date of Evaluation: 04/19/18 Time of Evaluation: 11:05 - Subjective Subjective: Patient seen and evaluated Offers no complaints Physical Examination - Constitutional Appears: No Acute Distress - Head Exam Head Exam: ATRAUMATIC, NORMOCEPHALIC - ENT Exam ENT Exam: Mucous Membranes Dry - Neck Exam Neck Exam: Full ROM. absent: Tenderness - Respiratory Exam Respiratory Exam: Decreased Breath Sounds (with slight congestion but improving sounds ), NORMAL BREATHING PATTERN - Cardiovascular Exam Cardiovascular Exam: REGULAR RHYTHM - GI/Abdominal Exam GI & Abdominal Exam: Soft, Normal Bowel Sounds. absent: Distended, Tenderness - Back Exam Back Exam: Full ROM - Neurological Exam Neurological Exam: Alert, Awake, Oriented x3 (weak righ side, slurred speech weak right corner mouth,) - Psychiatric Exam Psychiatric exam: Normal Affect, Normal Mood - Skin Skin Exam: Intact, Normal Color Assessment and Plan - Assessment and Plan (Free Text) Assessment: Patient with history of Hypertension with recent CVA-with right sided weakness CAD post stent on plavix aspirin PT Hypertension and Anxiety -adjust meds accordingly COPD/Emphysema admitted for Respiratory failure- with CXR_CHF, intubated in the field right clavicular fracture -follow up ortho extubated newCVA- further Neuro/cardio evaluation ongoing Metastatic Thyroid Ca Patient with paraxysmal A Fib/CVA High [id number] score On Eliquis 2.5 mg po bid Continue ASA 81 daily Plavix Stopped Objective - Vital Signs/Intake and Output Vital Signs (last 24 hours): Temp Pulse Resp BP Pulse Ox 97.4 F L 77 22 139/92 H 100 04/19/18 16:00 04/19/18 16:00 04/19/18 16:00 04/19/18 16:00 04/19/18 16:00 - Medications Medications: Current Medications Albuterol/Ipratropium (Duoneb 3 Mg/0.5 Mg (3 Ml) Ud) 3 ml INH RQ6 [facility] Apixaban (Eliquis) 2.5 mg PO BID [facility] Last Admin: 04/19/18 17:34 Dose: 2.5 mg Aspirin (Aspirin Chewable) 81 mg PO DAILY [facility] Last Admin: 04/19/18 10:09 Dose: 81 mg Diltiazem HCl (Cardizem) 30 mg PO QID [facility] Last Admin: 04/19/18 17:35 Dose: 30 mg Ferrous Sulfate (Feosol Liq) 300 mg PO TID [facility] Last Admin: 04/19/18 18:29 Dose: Not Given Fluconazole (Diflucan Iv 200 Mg/100 Ml Ns) 100 mls @ 100 mls/hr IVPB Q24H [facility]; Protocol Last Admin: 04/19/18 17:34 Dose: 100 mls/hr Insulin Aspart (Novolog) 0 unit SC Q6H [facility]; Protocol Last Admin: 04/19/18 17:22 Dose: Not Given Levothyroxine Sodium (Synthroid) 100 mcg IVP DAILY@0630 [facility] Last Admin: 04/19/18 06:16 Dose: 100 mcg Methylprednisolone (Solu-Medrol) 20 mg IVP DAILY [facility] Last Admin: 04/19/18 10:08 Dose: 20 mg Multivitamins (Hexavitamin) 1 tab PO DAILY [facility] Last Admin: 04/19/18 10:09 Dose: 1 tab Pantoprazole Sodium (Protonix Inj) 20 mg IVP DAILY [facility] Last Admin: 04/19/18 10:08 Dose: 20 mg Rosuvastatin Calcium (Crestor) 5 mg PO HS [facility] Last Admin: 04/18/18 21:34 Dose: 5 mg Vitamin A (Vitamin A & D Oint Ud Foilpak) 0.5 ea TOP Q4 PRN PRN Reason: Dry mouth Last Admin: 04/19/18 06:05 Dose: 0.5 ea - Labs Labs: 04/18/18 06:17 04/19/18 07:38 PT 11.1 SECONDS (9.7-12.2) 04/16/18 07:34 INR 1.0 04/16/18 07:34 APTT 24 SECONDS (21-34) 04/16/18 07:34
[2018-04-20] MEDS: Albuterol-Ipratrop 3 mg / 0.5 (3 ml) UD INH SCH ×4 (01:53→19:43)
[2018-04-20] MEDS: Levothyroxine 100 mcg (0.1 mg) Inj IVP SCH (05:38)
[2018-04-20] MEDS: (Novolog) Insulin Aspart, Recombinant 100 u/ml 10 ml vial SC SCH ×4 (06:15→18:57)
--- NOTE | 2018-04-20 07:16 | CP.PCM.PN ---
Subjective - Date & Time of Evaluation Date of Evaluation: 04/20/18 Time of Evaluation: 06:40 - Subjective Subjective: Anton Alegre D.O. PGY-3, Internal Medicine Resident, Endocrinology Progress Note 67 year old female with a PMH of HTN, HLD, anxiety, CVA with residual L sided weakness, COPD, and CAD s/p stenting who presented in respiratory distress, intubated, now extubated, found to have extensive nodules in the thyroid and extensive lytic bone lesions on imaging with concern for cancer. Endocrinology was consulted for the multinodular thyroid gland. Patient was seen and examined at bedside. Difficult to understand, slightly dysarthric, however can communicate with signs and hand movements. Staying strong. No acute overnight events noted. Objective - Vital Signs/Intake and Output Vital Signs (last 24 hours): Temp Pulse Resp BP Pulse Ox 97.2 F L 83 20 135/79 100 04/19/18 23:20 04/20/18 03:54 04/19/18 23:20 04/19/18 23:20 04/19/18 23:20 Intake and Output: 04/20/18 04/20/18 06:59 18:59 Intake Total 570 Balance 570 - Medications Medications: Current Medications Albuterol/Ipratropium (Duoneb 3 Mg/0.5 Mg (3 Ml) Ud) 3 ml INH RQ6 [facility] Last Admin: 04/20/18 01:53 Dose: Not Given Apixaban (Eliquis) 2.5 mg PO BID [facility] Last Admin: 04/19/18 17:34 Dose: 2.5 mg Aspirin (Aspirin Chewable) 81 mg PO DAILY [facility] Last Admin: 04/19/18 10:09 Dose: 81 mg Diltiazem HCl (Cardizem) 30 mg PO QID [facility] Last Admin: 04/19/18 21:09 Dose: 30 mg Ferrous Sulfate (Feosol Liq) 300 mg PO TID [facility] Last Admin: 04/19/18 18:29 Dose: Not Given Fluconazole (Diflucan Iv 200 Mg/100 Ml Ns) 100 mls @ 100 mls/hr IVPB Q24H [facility]; Protocol Last Admin: 04/19/18 17:34 Dose: 100 mls/hr Insulin Aspart (Novolog) 0 unit SC Q6H [facility]; Protocol Last Admin: 04/20/18 06:15 Dose: Not Given Levothyroxine Sodium (Synthroid) 100 mcg IVP DAILY@0630 [facility] Last Admin: 04/20/18 05:38 Dose: 100 mcg Methylprednisolone (Solu-Medrol) 20 mg IVP DAILY [facility] Last Admin: 04/19/18 10:08 Dose: 20 mg Multivitamins (Hexavitamin) 1 tab PO DAILY [facility] Last Admin: 04/19/18 10:09 Dose: 1 tab Pantoprazole Sodium (Protonix Inj) 20 mg IVP DAILY [facility] Last Admin: 04/19/18 10:08 Dose: 20 mg Rosuvastatin Calcium (Crestor) 5 mg PO HS [facility] Last Admin: 04/19/18 21:09 Dose: 5 mg Vitamin A (Vitamin A & D Oint Ud Foilpak) 0.5 ea TOP Q4 PRN PRN Reason: Dry mouth Last Admin: 04/19/18 06:05 Dose: 0.5 ea - Labs Labs: 04/18/18 06:17 04/19/18 07:38 PT 11.1 SECONDS (9.7-12.2) 04/16/18 07:34 INR 1.0 04/16/18 07:34 APTT 24 SECONDS (21-34) 04/16/18 07:34 - Constitutional Appears: Cachectic, Chronically Ill - Head Exam Head Exam: NORMOCEPHALIC - Eye Exam Eye Exam: EOMI. absent: Scleral icterus - ENT Exam ENT Exam: Mucous Membranes Dry - Respiratory Exam Respiratory Exam: absent: Rhonchi, Wheezes - Cardiovascular Exam Cardiovascular Exam: +S1, +S2 - GI/Abdominal Exam GI & Abdominal Exam: Soft - Extremities Exam Extremities Exam: absent: Pedal Edema - Neurological Exam Neurological Exam: Alert, Awake Additional comments: dysarthric, left sided deficits, able to communicate with hand movements - Skin Skin Exam: Dry, Warm Assessment and Plan - Assessment and Plan (Free Text) Assessment: 67 year old female with a PMH of HTN, HLD, anxiety, CVA with residual L sided weakness, COPD, and CAD s/p stenting who presented in respiratory distress, intubated, now extubated, found to have extensive nodules in the thyroid and extensive lytic bone lesions on imaging with concern for cancer. Endocrinology was consulted for the multinodular thyroid gland. Plan: 1. Multinodular thyroid disease Suspicion of underlying CA, particularly given positive Ab Multidisciplinary care being provided, other senior environmental consultant notes appreciated At this time since NPO on feeds will continue IV levothyroxine at 100mcg (reduc ed dosing in IV form compared to PO) Will follow T4 and TSH and titrate dosing as needed Patient was seen and examined and case to be discussed with attending physician Dr. Erazo.
--- NOTE | 2018-04-20 07:39 | PN ---
DATE: 04/20/2018 TIME OF EVALUATION: 06:55 a.m. NEUROLOGICAL PROBLEM: Embolic stroke mostly on left posterior cerebral artery distribution, possible cardioembolic origin. The patient is status post extubation, on NG tube feeding. PHYSICAL EXAMINATION: GENERAL: The patient arousable, good visual cue, speech spontaneous, follows one-step command. Some dysmetria which was noted earlier on left side, which was decreased. VITAL SIGNS: Blood pressure 135/79, mean arterial pressure 97, respiratory rate 18, pulse rate 83, regular, temperature 97.2. HEENT: Extraocular movement, no primary gaze nystagmus. ASSESSMENT AND PLAN: From neurology point of view, the patient seems to be stable. No further progression is noted. The patient is on Eliquis for stroke prophylaxis, however, which is subtherapeutic dose. The patient's workup is consistent with CA 19-9 with GI cancer, however, absolute primary source of cancer is not identified yet. The patient's overall prognosis is poor. Andrew Castro MD
[2018-04-20 07:44] LABS: BASO % 0.1 % (0.0-2.0); EOS # 0.1 K/uL (0.0-0.7); EOS % 0.3 % (0.0-4.0); HEMOGLOBIN 9.7 g/dL (11.0-16.0); LYMPH # 0.5 K/uL (1.0-4.3); LYMPH % 2.5 % (20.0-40.0); MEAN CELL VOLUME 96.8 fL (81.0-99.0); MEAN PLATELET VOLUME 10.3 fL (7.2-11.7); MONO # 1.5 K/uL (0.0-0.8); MONO % 6.8 % (0.0-10.0); NEUT # 19.8 K/uL (1.8-7.0); NEUT % 90.3 % (50.0-75.0); NRBC % 0.1 % (0.0-2.0); PLATELET COUNT 333 K/uL (130-400); RBC 3.14 Mil/uL (3.80-5.20)
[2018-04-20 07:49] LABS: WHITE BLOOD COUNT 21.9 K/uL (4.8-10.8)
[2018-04-20 07:50] LABS: ALB/GLOB RATIO 1.1 (1.0-2.1); ALBUMIN 3.1 g/dL (3.5-5.0); ALT/SGPT 29 U/L (9-52); AST/SGOT 23 U/L (14-36); BLOOD UREA NITROGEN 43 mg/dL (7-17); CALCIUM 9.9 mg/dl (8.6-10.4); GAMMA GLUTAMYL TRANSPEPTIDASE 64 U/L (8-78); GFR NON-AFRICAN AMERICAN > 60
[2018-04-20 08:49] LABS: ANISOCYTOSIS SLIGHT; BANDS 1 % (0-2); HYPOCHROMIC SLIGHT; LYMPHOCYTE 5 % (20-40); MONOCYTE 8 % (0-10); MYELOCYTE 1 % (0-0); NEUTROPHIL 85 % (50-75); PLATELET ESTIMATE NORMAL (NORMAL); POIKILOCYTOSIS SLIGHT; TOTAL CELLS COUNTED 100
[2018-04-20 08:50] LABS: BURR CELLS SLIGHT; GIANT PLATELETS PRESENT; LARGE PLATELETS PRESENT; TARGET CELLS SLIGHT
[2018-04-20] MEDS: Multiple Vitamins Tab PO SCH (10:14)
[2018-04-20] MEDS: Ferrous Sulfate 300 mg/5 mL Liq UD PO SCH ×3 (10:14→18:55)
--- NOTE | 2018-04-20 10:21 | CP.PCM.PN ---
Subjective - Date & Time of Evaluation Date of Evaluation: 04/20/18 Time of Evaluation: 10:35 - Subjective Subjective: chart review vitals noted h/h stable abdominal US noted patient seen=had PT, walked few steps, followed PT wishes to go home seen with NGT- with noisy breathing, at a doistance held feedding temporarily and oredered CXR by yoel further education on aspiration prevention patient has positive attitude to get well Objective - Vital Signs/Intake and Output Vital Signs (last 24 hours): Temp Pulse Resp BP Pulse Ox 98.0 F 91 H 18 151/91 H 100 04/20/18 07:30 04/20/18 07:30 04/20/18 07:30 04/20/18 07:30 04/20/18 07:30 Intake and Output: 04/20/18 04/20/18 06:59 18:59 Intake Total 570 Balance 570 - Medications Medications: Current Medications Albuterol/Ipratropium (Duoneb 3 Mg/0.5 Mg (3 Ml) Ud) 3 ml INH RQ6 [facility] Last Admin: 04/20/18 08:17 Dose: 3 ml Apixaban (Eliquis) 2.5 mg PO BID [facility] Last Admin: 04/20/18 10:15 Dose: 2.5 mg Aspirin (Aspirin Chewable) 81 mg PO DAILY [facility] Last Admin: 04/20/18 10:14 Dose: 81 mg Diltiazem HCl (Cardizem) 30 mg PO QID [facility] Last Admin: 04/20/18 10:14 Dose: 30 mg Ferrous Sulfate (Feosol Liq) 300 mg PO TID [facility] Last Admin: 04/20/18 10:14 Dose: 300 mg Fluconazole (Diflucan Iv 200 Mg/100 Ml Ns) 100 mls @ 100 mls/hr IVPB Q24H [facility]; Protocol Last Admin: 04/19/18 17:34 Dose: 100 mls/hr Insulin Aspart (Novolog) 0 unit SC Q6H [facility]; Protocol Last Admin: 04/20/18 06:15 Dose: Not Given Levothyroxine Sodium (Synthroid) 100 mcg IVP DAILY@0630 [facility] Last Admin: 04/20/18 05:38 Dose: 100 mcg Methylprednisolone (Solu-Medrol) 20 mg IVP DAILY [facility] Last Admin: 04/19/18 10:08 Dose: 20 mg Multivitamins (Hexavitamin) 1 tab PO DAILY [facility] Last Admin: 04/20/18 10:14 Dose: 1 tab Pantoprazole Sodium (Protonix Inj) 20 mg IVP DAILY [facility] Last Admin: 04/20/18 10:13 Dose: 20 mg Rosuvastatin Calcium (Crestor) 5 mg PO HS [facility] Last Admin: 04/19/18 21:09 Dose: 5 mg Vitamin A (Vitamin A & D Oint Ud Foilpak) 0.5 ea TOP Q4 PRN PRN Reason: Dry mouth Last Admin: 04/19/18 06:05 Dose: 0.5 ea - Labs Labs: 04/20/18 07:27 04/20/18 07:27 PT 11.1 SECONDS (9.7-12.2) 04/16/18 07:34 INR 1.0 04/16/18 07:34 APTT 24 SECONDS (21-34) 04/16/18 07:34 - Constitutional Appears: Non-toxic, No Acute Distress - Head Exam Head Exam: ATRAUMATIC, NORMOCEPHALIC (NGT in place ) - Eye Exam Eye Exam: Normal appearance. absent: Nystagmus - ENT Exam ENT Exam: Mucous Membranes Moist - Neck Exam Neck Exam: Full ROM. absent: Tenderness - Respiratory Exam Respiratory Exam: Rhonchi, Wheezes. absent: Respiratory Distress - Cardiovascular Exam Cardiovascular Exam: REGULAR RHYTHM - GI/Abdominal Exam GI & Abdominal Exam: Soft, Normal Bowel Sounds. absent: Tenderness - Back Exam Back Exam: Full ROM. absent: CVA tenderness (R), rash noted - Neurological Exam Neurological Exam: Alert, Awake, Oriented x3 (had ambulated with PT ) - Psychiatric Exam Psychiatric exam: Normal Affect, Normal Mood - Skin Skin Exam: Intact, Normal Color Assessment and Plan - Assessment and Plan (Free Text) Assessment: Patient with CVAwith slurred speech poor swallow- on NGT feeding discussion of intermission coordinator feeding -discussionwith GI re PEG discussed with and patient but issues on holding blood thinners- conflict, will consult the neuro and cardio on case on PT and speech Therapy- with good improvement CAD post stent Hypertension cholesterolnemia on meds Thyroid mass bone mets- GI work up issues as per GI notes aspiration precaution
[2018-04-20] MEDS: MethylPREDNISolone 40 mg Vial IVP SCH (10:24)
--- NOTE | 2018-04-20 13:57 | CP.PCM.PN ---
Subjective - Date & Time of Evaluation Date of Evaluation: 04/20/18 Time of Evaluation: 09:00 - Subjective Subjective: more alert walking with walker Objective - Vital Signs/Intake and Output Vital Signs (last 24 hours): Temp Pulse Resp BP Pulse Ox 98.0 F 91 H 18 151/91 H 100 04/20/18 07:30 04/20/18 07:30 04/20/18 07:30 04/20/18 07:30 04/20/18 07:30 Intake and Output: 04/20/18 04/20/18 06:59 18:59 Intake Total 570 Balance 570 - Medications Medications: Current Medications Albuterol/Ipratropium (Duoneb 3 Mg/0.5 Mg (3 Ml) Ud) 3 ml INH RQ6 [facility] Last Admin: 04/20/18 13:42 Dose: Not Given Apixaban (Eliquis) 2.5 mg PO BID [facility] Last Admin: 04/20/18 10:15 Dose: 2.5 mg Aspirin (Aspirin Chewable) 81 mg PO DAILY [facility] Last Admin: 04/20/18 10:14 Dose: 81 mg Diltiazem HCl (Cardizem) 30 mg PO QID [facility] Last Admin: 04/20/18 10:14 Dose: 30 mg Ferrous Sulfate (Feosol Liq) 300 mg PO TID [facility] Last Admin: 04/20/18 10:14 Dose: 300 mg Fluconazole (Diflucan Iv 200 Mg/100 Ml Ns) 100 mls @ 100 mls/hr IVPB Q24H [facility]; Protocol Last Admin: 04/19/18 17:34 Dose: 100 mls/hr Insulin Aspart (Novolog) 0 unit SC Q6H [facility]; Protocol Last Admin: 04/20/18 06:15 Dose: Not Given Levothyroxine Sodium (Synthroid) 100 mcg IVP DAILY@0630 [facility] Last Admin: 04/20/18 05:38 Dose: 100 mcg Methylprednisolone (Solu-Medrol) 20 mg IVP DAILY [facility] Last Admin: 04/20/18 10:24 Dose: 20 mg Multivitamins (Hexavitamin) 1 tab PO DAILY [facility] Last Admin: 04/20/18 10:14 Dose: 1 tab Pantoprazole Sodium (Protonix Inj) 20 mg IVP DAILY [facility] Last Admin: 04/20/18 10:13 Dose: 20 mg Rosuvastatin Calcium (Crestor) 5 mg PO HS [facility] Last Admin: 04/19/18 21:09 Dose: 5 mg Vitamin A (Vitamin A & D Oint Ud Foilpak) 0.5 ea TOP Q4 PRN PRN Reason: Dry mouth Last Admin: 04/19/18 06:05 Dose: 0.5 ea - Labs Labs: 04/20/18 07:27 04/20/18 07:27 PT 11.1 SECONDS (9.7-12.2) 04/16/18 07:34 INR 1.0 04/16/18 07:34 APTT 24 SECONDS (21-34) 04/16/18 07:34 - Constitutional Appears: Confused, Cachectic, Chronically Ill - Head Exam Head Exam: NORMOCEPHALIC - Eye Exam Eye Exam: absent: Scleral icterus - ENT Exam ENT Exam: Mucous Membranes Dry - Neck Exam Neck Exam: absent: Lymphadenopathy - Respiratory Exam Respiratory Exam: Decreased Breath Sounds - Cardiovascular Exam Cardiovascular Exam: REGULAR RHYTHM - GI/Abdominal Exam GI & Abdominal Exam: Distended - Rectal Exam Rectal Exam: Deferred - Exam Exam: NORMAL INSPECTION - Extremities Exam Extremities Exam: absent: Pedal Edema - Back Exam Back Exam: absent: CVA tenderness (L), CVA tenderness (R) - Neurological Exam Neurological Exam: Alert, Awake, CN II-XII Intact Assessment and Plan (1) Acute respiratory failure with hypoxia and hypercapnia Status: Acute (2) Metastatic cancer Status: Acute (3) COPD exacerbation Status: Acute (4) Cachexia Status: Acute (5) CVA (cerebral vascular accident) Status: Acute - Assessment and Plan (Free Text) Assessment: poor prognosis cont iv rx
--- NOTE | 2018-04-20 14:22 | CP.PCM.PN ---
Subjective - Date & Time of Evaluation Date of Evaluation: 04/20/18 Time of Evaluation: 14:18 - Subjective Subjective: f/u anemia Has been off IV fluids and NG feeds. BUN rising. Sono- negative Unable to swallow, high risk of aspiration Objective - Vital Signs/Intake and Output Vital Signs (last 24 hours): Temp Pulse Resp BP Pulse Ox 98.0 F 91 H 18 151/91 H 100 04/20/18 07:30 04/20/18 07:30 04/20/18 07:30 04/20/18 07:30 04/20/18 07:30 Intake and Output: 04/20/18 04/20/18 06:59 18:59 Intake Total 570 Balance 570 - Medications Medications: Current Medications Albuterol/Ipratropium (Duoneb 3 Mg/0.5 Mg (3 Ml) Ud) 3 ml INH RQ6 [facility] Last Admin: 04/20/18 13:42 Dose: Not Given Apixaban (Eliquis) 2.5 mg PO BID [facility] Last Admin: 04/20/18 10:15 Dose: 2.5 mg Aspirin (Aspirin Chewable) 81 mg PO DAILY [facility] Last Admin: 04/20/18 10:14 Dose: 81 mg Diltiazem HCl (Cardizem) 30 mg PO QID [facility] Last Admin: 04/20/18 10:14 Dose: 30 mg Ferrous Sulfate (Feosol Liq) 300 mg PO TID [facility] Last Admin: 04/20/18 10:14 Dose: 300 mg Fluconazole (Diflucan Iv 200 Mg/100 Ml Ns) 100 mls @ 100 mls/hr IVPB Q24H [facility]; Protocol Last Admin: 04/19/18 17:34 Dose: 100 mls/hr Insulin Aspart (Novolog) 0 unit SC Q6H [facility]; Protocol Last Admin: 04/20/18 06:15 Dose: Not Given Levothyroxine Sodium (Synthroid) 100 mcg IVP DAILY@0630 [facility] Last Admin: 04/20/18 05:38 Dose: 100 mcg Methylprednisolone (Solu-Medrol) 20 mg IVP DAILY [facility] Last Admin: 04/20/18 10:24 Dose: 20 mg Multivitamins (Hexavitamin) 1 tab PO DAILY [facility] Last Admin: 04/20/18 10:14 Dose: 1 tab Pantoprazole Sodium (Protonix Inj) 20 mg IVP DAILY [facility] Last Admin: 04/20/18 10:13 Dose: 20 mg Rosuvastatin Calcium (Crestor) 5 mg PO HS [facility] Last Admin: 04/19/18 21:09 Dose: 5 mg Vitamin A (Vitamin A & D Oint Ud Foilpak) 0.5 ea TOP Q4 PRN PRN Reason: Dry mouth Last Admin: 04/19/18 06:05 Dose: 0.5 ea - Labs Labs: 04/20/18 07:27 04/20/18 07:27 PT 11.1 SECONDS (9.7-12.2) 04/16/18 07:34 INR 1.0 04/16/18 07:34 APTT 24 SECONDS (21-34) 04/16/18 07:34 - Constitutional Appears: Cachectic - Respiratory Exam Respiratory Exam: NORMAL BREATHING PATTERN - GI/Abdominal Exam GI & Abdominal Exam: Soft. absent: Tenderness Assessment and Plan (1) Cachexia Status: Acute (2) Metastatic cancer Assessment & Plan: Unknown primary with bone metastases. Suspect either Pancreas or Thyroid primary. Abd CT done without IV contrast. Abd sono essentially WNL Discussed at length with MANAGER SOFTWARE DEVELOPMENT: Resume IV fluids/feeds and if renal function normalizes obtain CT abdomen with contrast Recall Oncologist to follow up. Perhaps PET scan is needed? 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
--- NOTE | 2018-04-20 15:20 | PN ---
DATE: 04/20/2018 ENDO FOLLOWUP NOTE LOCATION: Room 652. SUBJECTIVE: This is a 67-year-old female with recent overt hypothyroidism with an underlying multinodular goiter and a dominant right thyroid nodule, awaiting fine needle aspiration and biopsy procedure as noted. Her glycemic levels are fluctuating as noted with glucose values ranging from 153 to 170 and 195 mg/dL. LABORATORY DATA: Her latest chemistries showed a BUN of 43, sodium 140, potassium 4.3, chloride 104, CO2 34, glucose 157 and creatinine 0.8. Her CA 19-9 antigen is over 5000 with a CEA of 2. ASSESSMENT AND PLAN: She is undergoing gastrointestinal workup at this time for a possible pancreatic malignancy as noted. There is also evidence of diffuse bony metastases as noted thereof. We will continue the levothyroxine given as 100 mcg intravenous push once daily as ordered. We will obtain serial chemistries and supplement accordingly as needed. We will also obtain serial thyroid studies and adjust her dose regimen accordingly. We will follow. Akiko Erazo MD
--- NOTE | 2018-04-20 15:34 | RAD ---
HISTORY: r/o Aspiration COMPARISON: CT chest without contrast performed 04/09/18 and chest x-ray performed 04/13/18 TECHNIQUE: Chest PA and lateral FINDINGS: Nasogastric tube extends expected location of the stomach. LUNGS: Medial right upper lobe opacity may reflect combination of tortuous vasculature as well as known mass which arises from the right lobe of the thyroid gland. Please note that chest x-ray has limited sensitivity for the detection of pulmonary masses. PLEURA: No significant pleural effusion identified. No definite pneumothorax . CARDIOVASCULAR: Mild cardiomegaly. Ectatic aorta. Atherosclerotic calcification of the aortic knob. OSSEOUS STRUCTURES: Osseous demineralization limits evaluation for acute fracture lines. Displaced right clavicle fracture deformity. VISUALIZED UPPER ABDOMEN: Residual oral contrast within the partially imaged left colon. OTHER FINDINGS: None. IMPRESSION: Nasogastric tube extends expected location of the stomach. Mild cardiomegaly. Ectatic aorta. Atherosclerotic calcification of the aortic knob. Medial right upper lobe opacity may reflect combination of tortuous vasculature as well as known mass which arises from the right lobe of the thyroid gland. Displaced right clavicle fracture deformity.
[2018-04-20] MEDS: Fluconazole IV 200mg/100 ml NS 100 ML IVPB SCH (18:56)
--- NOTE | 2018-04-20 23:46 | CP.PCM.PN ---
Subjective - Date & Time of Evaluation Date of Evaluation: 04/20/18 Time of Evaluation: 18:10 - Subjective Subjective: Patient seen and evaluated Offers no complaints Physical Examination - Constitutional Appears: No Acute Distress - Head Exam Head Exam: ATRAUMATIC, NORMOCEPHALIC - ENT Exam ENT Exam: Mucous Membranes Dry - Neck Exam Neck Exam: Full ROM. absent: Tenderness - Respiratory Exam Respiratory Exam: Decreased Breath Sounds (with slight congestion but improving sounds ), NORMAL BREATHING PATTERN - Cardiovascular Exam Cardiovascular Exam: REGULAR RHYTHM - GI/Abdominal Exam GI & Abdominal Exam: Soft, Normal Bowel Sounds. absent: Distended, Tenderness - Back Exam Back Exam: Full ROM - Neurological Exam Neurological Exam: Alert, Awake, Oriented x3 (weak righ side, slurred speech weak right corner mouth,) - Psychiatric Exam Psychiatric exam: Normal Affect, Normal Mood - Skin Skin Exam: Intact, Normal Color Assessment and Plan - Assessment and Plan (Free Text) Assessment: Patient with history of Hypertension with recent CVA-with right sided weakness CAD post stent on plavix aspirin PT Hypertension and Anxiety -adjust meds accordingly COPD/Emphysema admitted for Respiratory failure- with CXR_CHF, intubated in the field right clavicular fracture -follow up ortho extubated newCVA- further Neuro/cardio evaluation ongoing Metastatic Thyroid Ca Patient with paraxysmal A Fib/CVA High [id number] score On Eliquis 2.5 mg po bid Continue ASA 81 daily Pre Op cardiac risk assessment: GI would like to hold Eliquis and ASA for 5-7 days for PEG placement Unfortunately Patient has non modifiable cardiac risk factors Eventhough not ideal but in the best interest of the patient recommend to proceed with the PEG tube placement Objective - Vital Signs/Intake and Output Vital Signs (last 24 hours): Temp Pulse Resp BP Pulse Ox 98.0 F 76 22 123/79 100 04/20/18 16:00 04/20/18 16:00 04/20/18 16:00 04/20/18 16:00 04/20/18 16:00 Intake and Output: 04/20/18 04/21/18 18:59 06:59 Intake Total 440 Balance 440 - Medications Medications: Current Medications Albuterol/Ipratropium (Duoneb 3 Mg/0.5 Mg (3 Ml) Ud) 3 ml INH RQ6 [facility] Last Admin: 02/18/19 19:43 Dose: 3 ml Apixaban (Eliquis) 2.5 mg PO BID [facility] Last Admin: 04/20/18 18:55 Dose: 2.5 mg Aspirin (Aspirin Chewable) 81 mg PO DAILY [facility] Last Admin: 04/20/18 10:14 Dose: 81 mg Diltiazem HCl (Cardizem) 30 mg PO QID [facility] Last Admin: 04/20/18 21:30 Dose: 30 mg Ferrous Sulfate (Feosol Liq) 300 mg PO TID [facility] Last Admin: 04/20/18 18:55 Dose: 300 mg Fluconazole (Diflucan Iv 200 Mg/100 Ml Ns) 100 mls @ 100 mls/hr IVPB Q24H [facility]; Protocol Last Admin: 04/20/18 18:56 Dose: 100 mls/hr Insulin Aspart (Novolog) 0 unit SC Q6H [facility]; Protocol Last Admin: 04/20/18 18:57 Dose: Not Given Levothyroxine Sodium (Synthroid) 100 mcg IVP DAILY@0630 [facility] Last Admin: 04/20/18 05:38 Dose: 100 mcg Multivitamins (Hexavitamin) 1 tab PO DAILY [facility] Last Admin: 04/20/18 10:14 Dose: 1 tab Pantoprazole Sodium (Protonix Inj) 20 mg IVP DAILY [facility] Last Admin: 04/20/18 10:13 Dose: 20 mg Rosuvastatin Calcium (Crestor) 5 mg PO HS [facility] Last Admin: 04/20/18 21:30 Dose: 5 mg Vitamin A (Vitamin A & D Oint Ud Foilpak) 0.5 ea TOP Q4 PRN PRN Reason: Dry mouth Last Admin: 04/19/18 06:05 Dose: 0.5 ea - Labs Labs: 04/20/18 07:27 04/20/18 07:27 PT 11.1 SECONDS (9.7-12.2) 04/16/18 07:34 INR 1.0 04/16/18 07:34 APTT 24 SECONDS (21-34) 04/16/18 07:34
[2018-04-21] MEDS: (Novolog) Insulin Aspart, Recombinant 100 u/ml 10 ml vial SC SCH ×4 (00:05→18:13)
[2018-04-21] MEDS: Albuterol-Ipratrop 3 mg / 0.5 (3 ml) UD INH SCH ×4 (01:33→20:32)
[2018-04-21] MEDS: Levothyroxine 100 mcg (0.1 mg) Inj IVP SCH (05:41)
--- NOTE | 2018-04-21 07:12 | CP.PCM.PN ---
Subjective - Date & Time of Evaluation Date of Evaluation: 04/21/18 Time of Evaluation: 06:50 - Subjective Subjective: Anton Alegre D.O. PGY-3, Internal Medicine Resident, Endocrinology Progress Note 67 year old female with a PMH of HTN, HLD, anxiety, CVA with residual L sided weakness, COPD, and CAD s/p stenting who presented in respiratory distress, now undergoing evaluation for possible thyroid and/or pancreatic CA. Endocrinology was consulted for the multinodular thyroid gland. Patient was seen and examined at bedside. States that she wants to go home. No acute complaints otherwise. Objective - Vital Signs/Intake and Output Vital Signs (last 24 hours): Temp Pulse Resp BP Pulse Ox 98.0 F 85 20 128/73 100 04/20/18 23:25 04/21/18 03:50 04/20/18 23:25 04/20/18 23:25 04/20/18 23:25 Intake and Output: 04/21/18 04/21/18 06:59 18:59 Intake Total 420 Balance 420 - Medications Medications: Current Medications Albuterol/Ipratropium (Duoneb 3 Mg/0.5 Mg (3 Ml) Ud) 3 ml INH RQ6 [facility] Last Admin: 04/21/18 01:33 Dose: 3 ml Apixaban (Eliquis) 2.5 mg PO BID [facility] Last Admin: 04/20/18 18:55 Dose: 2.5 mg Aspirin (Aspirin Chewable) 81 mg PO DAILY [facility] Last Admin: 04/20/18 10:14 Dose: 81 mg Diltiazem HCl (Cardizem) 30 mg PO QID [facility] Last Admin: 04/20/18 21:30 Dose: 30 mg Ferrous Sulfate (Feosol Liq) 300 mg PO TID [facility] Last Admin: 04/20/18 18:55 Dose: 300 mg Fluconazole (Diflucan Iv 200 Mg/100 Ml Ns) 100 mls @ 100 mls/hr IVPB Q24H [facility]; Protocol Last Admin: 04/20/18 18:56 Dose: 100 mls/hr Insulin Aspart (Novolog) 0 unit SC Q6H [facility]; Protocol Last Admin: 04/21/18 06:10 Dose: Not Given Levothyroxine Sodium (Synthroid) 100 mcg IVP DAILY@0630 [facility] Last Admin: 04/21/18 05:41 Dose: 100 mcg Multivitamins (Hexavitamin) 1 tab PO DAILY [facility] Last Admin: 04/20/18 10:14 Dose: 1 tab Pantoprazole Sodium (Protonix Inj) 20 mg IVP DAILY [facility] Last Admin: 04/20/18 10:13 Dose: 20 mg Rosuvastatin Calcium (Crestor) 5 mg PO HS [facility] Last Admin: 04/20/18 21:30 Dose: 5 mg Vitamin A (Vitamin A & D Oint Ud Foilpak) 0.5 ea TOP Q4 PRN PRN Reason: Dry mouth Last Admin: 04/19/18 06:05 Dose: 0.5 ea - Labs Labs: 04/20/18 07:27 04/20/18 07:27 PT 11.1 SECONDS (9.7-12.2) 04/16/18 07:34 INR 1.0 04/16/18 07:34 APTT 24 SECONDS (21-34) 04/16/18 07:34 - Constitutional Appears: Cachectic, Chronically Ill - Head Exam Head Exam: NORMOCEPHALIC - Eye Exam Eye Exam: EOMI. absent: Scleral icterus - ENT Exam ENT Exam: Mucous Membranes Dry, NG tube - Respiratory Exam Respiratory Exam: absent: Rhonchi, Wheezes - Cardiovascular Exam Cardiovascular Exam: +S1, +S2 - GI/Abdominal Exam GI & Abdominal Exam: Soft - Extremities Exam Extremities Exam: absent: Pedal Edema - Neurological Exam Neurological Exam: Alert, Awake Additional comments: dysarthria improved, left sided deficits - Skin Skin Exam: Dry, Warm Assessment and Plan - Assessment and Plan (Free Text) Assessment: 67 year old female with a PMH of HTN, HLD, anxiety, CVA with residual L sided weakness, COPD, and CAD s/p stenting who presented in respiratory distress, now undergoing evaluation for possible thyroid and/or pancreatic CA. Endocrinology was consulted for the multinodular thyroid gland. Plan: 1. Multinodular thyroid disease T4 normal, TSH improved from a few days ago Continue IV levothyroxine 100mcg Continue to monitor Patient was seen and examined and case to be discussed with attending physician Dr. Erazo.
--- NOTE | 2018-04-21 08:44 | PN ---
DATE: 04/21/2018 NEUROLOGIC PROBLEM: Embolic stroke in left SOUNDSCR[employer]ER [employer]CH[employer] territory with possible occult GI malignancy and paroxysmal atrial fibrillation. PHYSICAL EXAMINATION: VITAL SIGNS: Blood pressure 128/73, mean artery pressure of 91, respiratory rate 18, temperature 98 degrees Fahrenheit with a pulse rate of 85. The patient is awake, moving all four extremities. Mild dysmetria on the left side to compare with the right side. However, this is stable to compare with my previous examination in the past. The patient failed with swallow evaluation. The patient is scheduled for PEG placement to improve her nutritional status. At this point, Eliquis can be hold if dough raiser agrees, and Eliquis should be resumed following the procedure. The patient will be followed during the hospitalization. Andrew Castro MD
[2018-04-21] MEDS: Vitamins A & D Oint UD Foilpak TOP PRN (10:27)
[2018-04-21] MEDS: Multiple Vitamins Tab PO SCH (10:28)
[2018-04-21] MEDS: Ferrous Sulfate 300 mg/5 mL Liq UD PO SCH ×3 (10:29→18:13)
--- NOTE | 2018-04-21 11:15 | CP.PCM.PN ---
Subjective - Date & Time of Evaluation Date of Evaluation: 04/21/18 Time of Evaluation: 11:00 - Subjective Subjective: chart review vitals noted cbc high steroid Discontinued PEG issue ongoing patient seen conversant with slurred speech wishes to go home words becoming clear day by day by ammyzaidacollin discussed PEG discussion with staff Objective - Vital Signs/Intake and Output Vital Signs (last 24 hours): Temp Pulse Resp BP Pulse Ox 98.3 F 88 18 134/84 99 04/21/18 07:00 04/21/18 07:00 04/21/18 07:00 04/21/18 07:00 04/21/18 07:00 Intake and Output: 04/21/18 04/21/18 06:59 18:59 Intake Total 420 Balance 420 - Medications Medications: Current Medications Albuterol/Ipratropium (Duoneb 3 Mg/0.5 Mg (3 Ml) Ud) 3 ml INH RQ6 [facility] Last Admin: 04/21/18 09:29 Dose: 3 ml Apixaban (Eliquis) 2.5 mg PO BID [facility] Last Admin: 04/21/18 10:29 Dose: Not Given Aspirin (Aspirin Chewable) 81 mg PO DAILY [facility] Last Admin: 04/21/18 10:31 Dose: 81 mg Diltiazem HCl (Cardizem) 30 mg PO QID [facility] Last Admin: 04/21/18 10:27 Dose: 30 mg Ferrous Sulfate (Feosol Liq) 300 mg PO TID [facility] Last Admin: 04/21/18 10:29 Dose: 300 mg Fluconazole (Diflucan Iv 200 Mg/100 Ml Ns) 100 mls @ 100 mls/hr IVPB Q24H [facility]; Protocol Last Admin: 04/20/18 18:56 Dose: 100 mls/hr Insulin Aspart (Novolog) 0 unit SC Q6H [facility]; Protocol Last Admin: 04/21/18 06:10 Dose: Not Given Levothyroxine Sodium (Synthroid) 100 mcg NG DAILY@0630 [facility] Multivitamins (Hexavitamin) 1 tab PO DAILY [facility] Last Admin: 04/21/18 10:28 Dose: 1 tab Pantoprazole Sodium (Protonix Inj) 20 mg IVP DAILY [facility] Last Admin: 04/21/18 10:29 Dose: 20 mg Rosuvastatin Calcium (Crestor) 5 mg PO HS [facility] Last Admin: 04/20/18 21:30 Dose: 5 mg Vitamin A (Vitamin A & D Oint Ud Foilpak) 0.5 ea TOP Q4 PRN PRN Reason: Dry mouth Last Admin: 04/21/18 10:27 Dose: 0.5 ea - Labs Labs: 04/20/18 07:27 04/20/18 07:27 PT 11.1 SECONDS (9.7-12.2) 04/16/18 07:34 INR 1.0 04/16/18 07:34 APTT 24 SECONDS (21-34) 04/16/18 07:34 - Constitutional Appears: Non-toxic, Toxic, No Acute Distress - Head Exam Head Exam: ATRAUMATIC, NORMOCEPHALIC - Eye Exam Eye Exam: Normal appearance. absent: Nystagmus - ENT Exam ENT Exam: Mucous Membranes Dry - Neck Exam Neck Exam: Full ROM (with NGT , breathing noisy but no SOB ) - Respiratory Exam Respiratory Exam: Decreased Breath Sounds (with noisy breathing but no SOB comfortable no cough ), NORMAL BREATHING PATTERN - GI/Abdominal Exam GI & Abdominal Exam: Soft. absent: Distended - Extremities Exam Extremities Exam: Full ROM. absent: Pedal Edema - Back Exam Back Exam: Full ROM - Neurological Exam Neurological Exam: Alert, Awake, Oriented x3 (with right sided weakness- coperative with PT- ) - Skin Skin Exam: Intact, Normal Color Assessment and Plan - Assessment and Plan (Free Text) Assessment: Patient with multiple medical problems CVA with poor swallow , right sided weakness on PT and speech therapy plan for subacute currently on NGT- issues on NGT PEG considerationongoing Hypertension CAD post stent Thyroid mass Bone lytic lesion Anemia PEG GI work up as per GI notes
--- NOTE | 2018-04-21 11:22 | PN ---
DATE: 04/21/2018 ENDO FOLLOWUP NOTE ROOM: 652 SUBJECTIVE: This is a 67-year-old female with overt hypothyroidism with an underlying multinodular goiter and a right dominant thyroid nodule still awaiting fine needle aspiration biopsy of the aforementioned, as the patient has more pressing medical concerns especially with the recent metastatic GI workup for a possible pancreatic carcinoma. Her oral intake is quite valuable at this time with an NG tube still in place as noted. Her latest chemistries showed a BUN of 43, sodium 140, potassium 4.3, chloride 104, CO2 34, glucose 157, and creatinine 0.8. Her glucose levels have ranged from 153 to 170 mg/dL. Her latest thyroid studies showed a T4 of 7.09 with a TSH of 7.33, which is a remarkable response to levothyroxine given parenterally as noted. So, at this time, we will switch her over now from the IV levothyroxine given as 100 mcg to oral levothyroxine given at the same dose of 100 mcg via the nasogastric tube, and hopefully, the absorption continues well as now she is less hypothyroid with less expectant edema of the gastric mucosa thereafter. We will obtain serial thyroid studies and adjust the dose regimen accordingly. Akiko Erazo MD
[2018-04-21] MEDS: Fluconazole IV 200mg/100 ml NS 100 ML IVPB SCH (18:12)
[2018-04-22] MEDS: Albuterol-Ipratrop 3 mg / 0.5 (3 ml) UD INH SCH ×4 (02:52→19:33)
[2018-04-22] MEDS ORDERED: Levothyroxine 100 MCG TAB NG SCH (06:30)
--- NOTE | 2018-04-22 06:43 | CP.PCM.PN ---
Subjective - Date & Time of Evaluation Date of Evaluation: 04/22/18 Time of Evaluation: 06:28 - Subjective Subjective: Anton Alegre D.O. PGY-3, Internal Medicine Resident, Endocrinology Progress Note 67 year old female with a PMH of HTN, HLD, anxiety, CVA with residual L sided weakness, COPD, and CAD s/p stenting who presented in respiratory distress, now undergoing evaluation for possible thyroid and/or pancreatic CA. Endocrinology was consulted for the multinodular thyroid gland. Patient was seen and examined at bedside. Pulled out NGT a few hours ago. Does appears much more comfortable. Again states that she wishes to go home. Objective - Vital Signs/Intake and Output Vital Signs (last 24 hours): Temp Pulse Resp BP Pulse Ox 99.0 F 107 H 20 144/89 98 04/22/18 04:32 04/22/18 04:32 04/22/18 04:32 04/22/18 04:32 04/22/18 04:32 Intake and Output: 04/21/18 04/22/18 18:59 06:59 Intake Total 520 Balance 520 - Medications Medications: Current Medications Albuterol/Ipratropium (Duoneb 3 Mg/0.5 Mg (3 Ml) Ud) 3 ml INH RQ6 [facility] Last Admin: 04/22/18 02:52 Dose: 3 ml Apixaban (Eliquis) 2.5 mg PO BID [facility] Last Admin: 04/21/18 10:29 Dose: Not Given Aspirin (Aspirin Chewable) 81 mg PO DAILY [facility] Last Admin: 04/21/18 10:31 Dose: 81 mg Diltiazem HCl (Cardizem) 30 mg PO QID [facility] Last Admin: 04/21/18 21:09 Dose: 30 mg Ferrous Sulfate (Feosol Liq) 300 mg PO TID [facility] Last Admin: 04/21/18 18:13 Dose: 300 mg Heparin Sodium (Porcine) (Heparin) 5,000 units SC Q8 [facility] Last Admin: 04/21/18 21:09 Dose: Not Given Fluconazole (Diflucan Iv 200 Mg/100 Ml Ns) 100 mls @ 100 mls/hr IVPB Q24H [facility]; Protocol Last Admin: 04/21/18 18:12 Dose: 100 mls/hr Insulin Aspart (Novolog) 0 unit SC Q6H [facility]; Protocol Last Admin: 04/21/18 18:13 Dose: Not Given Multivitamins (Hexavitamin) 1 tab PO DAILY [facility] Last Admin: 04/21/18 10:28 Dose: 1 tab Pantoprazole Sodium (Protonix Inj) 20 mg IVP DAILY [facility] Last Admin: 04/21/18 10:29 Dose: 20 mg Rosuvastatin Calcium (Crestor) 5 mg PO HS [facility] Last Admin: 04/21/18 21:09 Dose: 5 mg Vitamin A (Vitamin A & D Oint Ud Foilpak) 0.5 ea TOP Q4 PRN PRN Reason: Dry mouth Last Admin: 04/21/18 10:27 Dose: 0.5 ea - Labs Labs: 04/20/18 07:27 04/20/18 07:27 PT 11.1 SECONDS (9.7-12.2) 04/16/18 07:34 INR 1.0 04/16/18 07:34 APTT 24 SECONDS (21-34) 04/16/18 07:34 - Constitutional Appears: Cachectic, Chronically Ill - Head Exam Head Exam: NORMOCEPHALIC - Eye Exam Eye Exam: EOMI. absent: Scleral icterus - ENT Exam ENT Exam: Mucous Membranes Dry - Respiratory Exam Respiratory Exam: absent: Rhonchi, Wheezes - Cardiovascular Exam Cardiovascular Exam: RRR, +S1, +S2 - GI/Abdominal Exam GI & Abdominal Exam: Soft, non-distended - Extremities Exam Extremities Exam: absent: Pedal Edema - Neurological Exam Neurological Exam: Alert, Awake, mild dysarthria, left sided deficits - Skin Skin Exam: Dry, Warm Assessment and Plan - Assessment and Plan (Free Text) Assessment: 67 year old female with a PMH of HTN, HLD, anxiety, CVA with residual L sided weakness, COPD, and CAD s/p stenting who presented in respiratory distress, now undergoing evaluation for possible thyroid and/or pancreatic CA. Endocrinology was consulted for the multinodular thyroid gland. Plan: 1. Multinodular thyroid disease/hypothyroidism Plan was to move patient from IV to PO(NG) levothyroxine, however seeing that patient pulled out her NGT will transiently re-start on IV levotyhroxine at 100mcg Discussed with patient Notes reviewed Labs reviewed Imaging reviewed Eliquis being held for PEG insertion Plan appears to be for patient to go to [facility] Continue to monitor Patient was seen and examined and case was discussed with attending physician Dr. Erazo.
--- NOTE | 2018-04-22 07:06 | CP.PCM.PN ---
Subjective - Date & Time of Evaluation Date of Evaluation: 04/21/18 Time of Evaluation: 17:40 - Subjective Subjective: Patient seen and evaluated Offers no complaints Patient with NG tube feeds To go for PEG tube Physical Examination - Constitutional Appears: No Acute Distress - Head Exam Head Exam: ATRAUMATIC, NORMOCEPHALIC - ENT Exam ENT Exam: Mucous Membranes Dry - Neck Exam Neck Exam: Full ROM. absent: Tenderness - Respiratory Exam Respiratory Exam: Decreased Breath Sounds (with slight congestion but improving sounds ), NORMAL BREATHING PATTERN - Cardiovascular Exam Cardiovascular Exam: REGULAR RHYTHM - GI/Abdominal Exam GI & Abdominal Exam: Soft, Normal Bowel Sounds. absent: Distended, Tenderness - Back Exam Back Exam: Full ROM - Neurological Exam Neurological Exam: Alert, Awake, Oriented x3 (weak righ side, slurred speech weak right corner mouth,) - Psychiatric Exam Psychiatric exam: Normal Affect, Normal Mood - Skin Skin Exam: Intact, Normal Color Assessment and Plan - Assessment and Plan (Free Text) Assessment: Patient with history of Hypertension with recent CVA-with right sided weakness CAD post stent on plavix aspirin PT Hypertension and Anxiety -adjust meds accordingly COPD/Emphysema admitted for Respiratory failure- with CXR_CHF, intubated in the field right clavicular fracture -follow up ortho extubated newCVA- further Neuro/cardio evaluation ongoing Metastatic Thyroid Ca Patient with paraxysmal A Fib/CVA High [id number] score On Eliquis 2.5 mg po bid Continue ASA 81 daily Pre Op cardiac risk assessment: GI would like to hold Eliquis and ASA for 5-7 days for PEG placement Unfortunately Patient has non modifiable cardiac risk factors Eventhough not ideal but in the best interest of the patient recommend to proceed with the PEG tube placement Can hold ASA and Eliquis as needed by GI Objective - Vital Signs/Intake and Output Vital Signs (last 24 hours): Temp Pulse Resp BP Pulse Ox 99.0 F 107 H 20 144/89 98 04/22/18 04:32 04/22/18 04:32 04/22/18 04:32 04/22/18 04:32 04/22/18 04:32 - Medications Medications: Current Medications Albuterol/Ipratropium (Duoneb 3 Mg/0.5 Mg (3 Ml) Ud) 3 ml INH RQ6 [facility] Last Admin: 04/22/18 02:52 Dose: 3 ml Apixaban (Eliquis) 2.5 mg PO BID [facility] Last Admin: 04/21/18 10:29 Dose: Not Given Aspirin (Aspirin Chewable) 81 mg PO DAILY [facility] Last Admin: 04/21/18 10:31 Dose: 81 mg Diltiazem HCl (Cardizem) 30 mg PO QID [facility] Last Admin: 04/21/18 21:09 Dose: 30 mg Ferrous Sulfate (Feosol Liq) 300 mg PO TID [facility] Last Admin: 04/21/18 18:13 Dose: 300 mg Heparin Sodium (Porcine) (Heparin) 5,000 units SC Q8 [facility] Last Admin: 04/21/18 21:09 Dose: Not Given Fluconazole (Diflucan Iv 200 Mg/100 Ml Ns) 100 mls @ 100 mls/hr IVPB Q24H [facility]; Protocol Last Admin: 04/21/18 18:12 Dose: 100 mls/hr Insulin Aspart (Novolog) 0 unit SC Q6H [facility]; Protocol Last Admin: 04/21/18 18:13 Dose: Not Given Levothyroxine Sodium (Synthroid) 100 mcg IVP DAILY [facility] Multivitamins (Hexavitamin) 1 tab PO DAILY [facility] Last Admin: 04/21/18 10:28 Dose: 1 tab Pantoprazole Sodium (Protonix Inj) 20 mg IVP DAILY [facility] Last Admin: 04/21/18 10:29 Dose: 20 mg Rosuvastatin Calcium (Crestor) 5 mg PO HS [facility] Last Admin: 04/21/18 21:09 Dose: 5 mg Vitamin A (Vitamin A & D Oint Ud Foilpak) 0.5 ea TOP Q4 PRN PRN Reason: Dry mouth Last Admin: 04/21/18 10:27 Dose: 0.5 ea - Labs Labs: 04/20/18 07:27 04/20/18 07:27 PT 11.1 SECONDS (9.7-12.2) 04/16/18 07:34 INR 1.0 04/16/18 07:34 APTT 24 SECONDS (21-34) 04/16/18 07:34
[2018-04-22] MEDS ORDERED: Pantoprazole 40 mg Susp UD PO SCH (10:00)
[2018-04-22] MEDS: Levothyroxine 100 mcg (0.1 mg) Inj IVP SCH (10:00)
[2018-04-22] MEDS: Ferrous Sulfate 300 mg/5 mL Liq UD PO SCH (10:54)
[2018-04-22] MEDS: Multiple Vitamins Tab PO SCH (10:54)
[2018-04-22] MEDS: (Novolog) Insulin Aspart, Recombinant 100 u/ml 10 ml vial SC SCH ×2 (12:00→18:04)
--- NOTE | 2018-04-22 12:12 | CP.PCM.PN ---
Subjective - Date & Time of Evaluation Date of Evaluation: 04/22/18 Time of Evaluation: 12:09 - Subjective Subjective: Asked to do PEG. Eliquis now being held Discussed with Dr Cruz to re-evaluate from Oncologic perspective Pt dependent on NG feeds, expert witness input appreciated Discussed with dr Reilly- recommends Thyroid Biopsy by IR, will order Objective - Vital Signs/Intake and Output Vital Signs (last 24 hours): Temp Pulse Resp BP Pulse Ox 97.3 F L 120 H 18 147/97 H 100 04/22/18 07:00 04/22/18 11:22 04/22/18 07:00 04/22/18 07:00 04/22/18 07:00 - Medications Medications: Current Medications Albuterol/Ipratropium (Duoneb 3 Mg/0.5 Mg (3 Ml) Ud) 3 ml INH RQ6 [facility] Last Admin: 04/22/18 07:52 Dose: 3 ml Apixaban (Eliquis) 2.5 mg PO BID [facility] Last Admin: 04/21/18 10:29 Dose: Not Given Aspirin (Aspirin Chewable) 81 mg PO DAILY [facility] Last Admin: 04/21/18 10:31 Dose: 81 mg Diltiazem HCl (Cardizem) 30 mg PO QID [facility] Last Admin: 04/22/18 10:55 Dose: 30 mg Ferrous Sulfate (Feosol Liq) 300 mg PO TID [facility] Last Admin: 04/22/18 10:54 Dose: 300 mg Heparin Sodium (Porcine) (Heparin) 5,000 units SC Q8 [facility] Last Admin: 04/22/18 11:04 Dose: Not Given Fluconazole (Diflucan Iv 200 Mg/100 Ml Ns) 100 mls @ 100 mls/hr IVPB Q24H [facility]; Protocol Last Admin: 04/21/18 18:12 Dose: 100 mls/hr Insulin Aspart (Novolog) 0 unit SC Q6H [facility]; Protocol Last Admin: 04/21/18 18:13 Dose: Not Given Levothyroxine Sodium (Synthroid) 100 mcg IVP DAILY [facility] Multivitamins (Hexavitamin) 1 tab PO DAILY [facility] Last Admin: 04/22/18 10:54 Dose: 1 tab Pantoprazole Sodium (Protonix Inj) 20 mg IVP DAILY [facility] Last Admin: 04/22/18 11:08 Dose: 20 mg Rosuvastatin Calcium (Crestor) 5 mg PO HS [facility] Last Admin: 04/21/18 21:09 Dose: 5 mg Vitamin A (Vitamin A & D Oint Ud Foilpak) 0.5 ea TOP Q4 PRN PRN Reason: Dry mouth Last Admin: 04/21/18 10:27 Dose: 0.5 ea - Labs Labs: 04/20/18 07:27 04/20/18 07:27 PT 11.1 SECONDS (9.7-12.2) 04/16/18 07:34 INR 1.0 04/16/18 07:34 APTT 24 SECONDS (21-34) 04/16/18 07:34 - Constitutional Appears: Chronically Ill - Head Exam Head Exam: NORMOCEPHALIC - Eye Exam Eye Exam: absent: Scleral icterus - GI/Abdominal Exam GI & Abdominal Exam: Soft. absent: Tenderness Assessment and Plan (1) Cachexia Assessment & Plan: PEG planned for Friday, allowing Eliquis to wash out. Also hold FeSO4 prior to PEG Cardiac cleared PEG per primary MD and family wishes Status: Acute (2) Metastatic cancer Assessment & Plan: Suspect Pancreas primary in light of elevated CA 19-9 Thyroid malignancy has been suspected but not biopsied while on Eliquis. Now off Eliquis- will ask IR to consult for Bx Will ask Dr Cruz to re-evaluate Status: Acute (3) Dysphagia as late effect of cerebrovascular accident (CVA) Status: Acute
--- NOTE | 2018-04-22 14:24 | RAD ---
Date of service: 04/22/2018 HISTORY: s/p NG tube insertion COMPARISON: 04/20/2018. FINDINGS: LUNGS: Lung apices are obscured by patient positioning. The visualized lungs are clear. PLEURA: No pleural effusions or pneumothorax. CARDIOVASCULAR: The heart is normal in size. No aortic atherosclerotic calcifications present. OSSEOUS STRUCTURES: Within normal limits for the patient's age. VISUALIZED UPPER ABDOMEN: Normal. OTHER FINDINGS: The tip of the nasogastric tube terminates in the stomach which is positioned laterally in the left mid abdomen when correlated with the prior CT scan.. IMPRESSION: Tip of the nasogastric tube overlies the left mid abdomen, likely in laterally positioned stomach. No acute findings.
--- NOTE | 2018-04-22 14:53 | CP.PCM.PN ---
Subjective - Date & Time of Evaluation Date of Evaluation: 04/22/18 Time of Evaluation: 12:30 - Subjective Subjective: chart review vitals noted GI discussion, plan for PEG for Friday off blood thinnner patient seen for NGT reinsertion= patient pulled iNGT twice PEG discussion for friday by yoel discussion of bone mets trio- phone discussion- onco- stage 4 =bone mets discussed but no defenitive primary focus Objective - Vital Signs/Intake and Output Vital Signs (last 24 hours): Temp Pulse Resp BP Pulse Ox 97.3 F L 120 H 18 147/97 H 100 04/22/18 07:00 04/22/18 11:22 04/22/18 07:00 04/22/18 07:00 04/22/18 07:00 - Medications Medications: Current Medications Albuterol/Ipratropium (Duoneb 3 Mg/0.5 Mg (3 Ml) Ud) 3 ml INH RQ6 [facility] Last Admin: 04/22/18 13:45 Dose: 3 ml Apixaban (Eliquis) 2.5 mg PO BID [facility] Last Admin: 04/21/18 10:29 Dose: Not Given Aspirin (Aspirin Chewable) 81 mg PO DAILY [facility] Last Admin: 04/21/18 10:31 Dose: 81 mg Diltiazem HCl (Cardizem) 30 mg PO QID [facility] Last Admin: 04/22/18 10:55 Dose: 30 mg Ferrous Sulfate (Feosol Liq) 300 mg PO TID [facility] Last Admin: 04/22/18 10:54 Dose: 300 mg Heparin Sodium (Porcine) (Heparin) 5,000 units SC Q8 [facility] Last Admin: 04/22/18 11:04 Dose: Not Given Fluconazole (Diflucan Iv 200 Mg/100 Ml Ns) 100 mls @ 100 mls/hr IVPB Q24H [facility]; Protocol Last Admin: 04/21/18 18:12 Dose: 100 mls/hr Insulin Aspart (Novolog) 0 unit SC Q6H [facility]; Protocol Last Admin: 04/21/18 18:13 Dose: Not Given Levothyroxine Sodium (Synthroid) 100 mcg IVP DAILY [facility] Multivitamins (Hexavitamin) 1 tab PO DAILY [facility] Last Admin: 04/22/18 10:54 Dose: 1 tab Pantoprazole Sodium (Protonix Inj) 20 mg IVP DAILY [facility] Last Admin: 04/22/18 11:08 Dose: 20 mg Rosuvastatin Calcium (Crestor) 5 mg PO HS [facility] Last Admin: 04/21/18 21:09 Dose: 5 mg Vitamin A (Vitamin A & D Oint Ud Foilpak) 0.5 ea TOP Q4 PRN PRN Reason: Dry mouth Last Admin: 04/21/18 10:27 Dose: 0.5 ea - Labs Labs: 04/20/18 07:27 04/20/18 07:27 PT 11.1 SECONDS (9.7-12.2) 04/16/18 07:34 INR 1.0 04/16/18 07:34 APTT 24 SECONDS (21-34) 04/16/18 07:34 - Constitutional Appears: No Acute Distress (looking and listening , conversant , slurred but some words comprehensible) - Head Exam Head Exam: ATRAUMATIC, NORMOCEPHALIC - Eye Exam Eye Exam: Normal appearance. absent: Nystagmus - ENT Exam ENT Exam: Mucous Membranes Dry - Neck Exam Neck Exam: Full ROM. absent: Tenderness (NGt is out ) - Respiratory Exam Respiratory Exam: NORMAL BREATHING PATTERN (some rhonchi but no wheezing, patient not in respiratory distress) - Cardiovascular Exam Cardiovascular Exam: REGULAR RHYTHM - GI/Abdominal Exam GI & Abdominal Exam: Soft, Normal Bowel Sounds. absent: Distended, Tenderness - Extremities Exam Extremities Exam: absent: Joint Swelling, Pedal Edema - Neurological Exam Neurological Exam: Alert, Awake, Oriented x3 (with right sided weakness) - Psychiatric Exam Psychiatric exam: Normal Affect, Normal Mood - Skin Skin Exam: Intact, Normal Color Assessment and Plan - Assessment and Plan (Free Text) Assessment: Patient with acute medical problems CVA poor swallow, right sided weak ness CAD A fibrillation on PT Speech Therapy off Eliquis for PEG Discussion with GI- to notify IR for thyroid biopsy while patient is off Eliquis Discussion with Oncology Dr Reyez=on speaker phone-with actively participating with discussion Patient has Bone mets=equivalent to Stage 4-\ but discussed that with no defenitive primary focus/biopsy- cannot decide on treatment discussed possibility of Chemo-if- patient is not stable for treatment for the meantime- will contnue on PEG, thyroid biopsy and sub acute
--- NOTE | 2018-04-22 15:02 | PCM.RRT ---
<Atif Powell - Last Filed: 04/22/18 15:05> [employer] Nurses Assessment New IV Insertion Tolerance: Good - Ventilator Settings SAO2 %: 99 - Neurological Status (Select all that apply): absent: Alert, Responsive, Oriented, Verbal, Follows Commands - Respiratory Oxygen Delivery Method: Nasal Cannula @L/min - Constitutional Appears: Cachectic, Chronically Ill - Head Head Exam: NORMOCEPHALIC - Respiratory Exam Respiratory Exam: Accessory Muscle Use, Decreased Breath Sounds, Respiratory Distress. absent: Rales, Rhonchi, Wheezes, NORMAL BREATHING PATTERN - Cardiovascular Exam Cardiovascular Exam: REGULAR RHYTHM, +S1, +S2. absent: Gallop, Rubs, Murmur - GI/Abdominal Exam GI & Abdominal Exam: Soft. absent: Distended, Tenderness - Neurological Exam Neurological Exam: absent: Alert, Awake, Oriented x3 Plan - Assessment of Findings&Treatment Plan Patient is 67 year old female pmhx of HTN, CAD s/p stent, CVA, stage IV thyroid cancer for whom [employer] was called for respiratory distress. Patient was not responsive upon encounter and visibly in respiratory distress. Vitals: T 97.8, HR 128, BP 121/92, O2 sat 95% on RA. O2 sat decreased to 82%. Patient was using accessory muscles and retracting was noted at that time. Patient was placed on NRB mask however continued to demonstrate signs of respiratory distress. Anesthesia was paged and patient was prepared for intubation. Labwork was not available for the past 2 days. CBC, CMP, Mg, Phos, ABG shock panel, Procal, EKG, CXR were ordered. Blood Cultures, Straight cath urine culture was obtained. Vancomycin and Zosyn IV were started for broad-spectrum coverage. ICU was notified and accepted patient for transfer. After intubation patient was transferred to ICU and placed on ventilation. <Taiwo Willis - Last Filed: 04/23/18 19:19> [employer] Nurses Assessment - Vital Signs Vital Signs: Rapid Response Vital Sign Blood Pressure 121/85 Pulse Rate 96 Respiratory Rate 22 Temperature 98.3 F Oxygen Saturation 98 - Vital Signs at end of [employer] Vital Signs at end of [employer]: Rapid Response End Vital Sign Blood Pressure 120/85 Pulse Rate 100 Respiratory Rate 22 Temperature 98.2 F O2 Sat by Pulse Oximetry 99 Attending/Attestation - Attestation I have personally seen and examined this patient.: Yes I have fully participated in the care of the patient.: Yes I have reviewed all pertinent clinical information, including history, physical exam and plan: Yes Notes (Text): 04/23/18 19:19 This is a late entry. Care of this patient was gone over in detail with resident Dr. Powell. Taiwo Willis D.O.
--- NOTE | 2018-04-22 15:08 | CP.PCM.CON ---
<Gini Montano - Last Filed: 04/22/18 16:50> History of Present Illness - History of Present Illness History of Present Illness: Gini Montano DO, PGY-2: ICU Consult Note for Dr. Colon 67 year old female with past medical history of hypertension anxiety, CVA with mild left sided weakness and slurred speech, s/p coronary stent placement on 04/05/2018 who presented with acute respiratory failure and was intubated in the field on 04/09/2018. During the course of her current admission she was diagnosed with an advanced cancer of unknown primary and found to have a stroke impairing her speech and swallow enough that she has been getting nutrition via NG tube with the plan on inserting a PEG tube this Friday. The patient's Eliquis was held in light of this planned procedure starting yesterday. Today, 04/22/2018 in the morning, the patient pulled out the NGT and it was re-inserted. In the afternoon today, a rapid response was called when the patient was found by the nurse in respiratory distress covered in her own feces. Anesthesiology was paged overhead and the patient was subsequently intubated via RSI. She was brought to the ICU intubated. ROS is limited secondary to the patient being intubated. Labs and imaging were ordered also at the time the Rapid response was called. PMH: Atrial fibrillation on eliquis, CVA, hypertension, dyslipidemia, multinodular thyroid gland PSH: None noted in chart Allergies: NKA Social: Ex-smoker, no history of alcohol or illicit drug use Review of Systems - Review of Systems Systems not reviewed;Unavailable: Intubated Past Patient History - Infectious Disease Hx of Infectious Diseases: None - Past Medical History & Family History Past Medical History?: Yes - Past Social History Smoking Status: Never Smoked Chewing Tobacco Use: No Cigar Use: No Alcohol: None Home Situation {Lives}: With Family - CARDIAC Hx Hypertension: Yes - PULMONARY Hx Chronic Obstructive Pulmonary Disease (COPD): Yes - NEUROLOGICAL HX Cerebrovascular Accident: Yes - HEENT Hx HEENT Problems: No - RENAL Hx Chronic Kidney Disease: No - ENDOCRINE/METABOLIC Hx Endocrine Disorders: No - HEMATOLOGICAL/ONCOLOGICAL Hx Blood Disorders: No - INTEGUMENTARY Hx Dermatological Problems: No - MUSCULOSKELETAL/RHEUMATOLOGICAL Hx Musculoskeletal Disorders: No Hx Falls: No - GASTROINTESTINAL Hx Gastrointestinal Disorders: No - GENITOURINARY/GYNECOLOGICAL Hx Genitourinary Disorders: No - PSYCHIATRIC Hx Substance Use: No - SURGICAL HISTORY Hx Coronary Stent: Yes - ANESTHESIA Hx Anesthesia: No Meds Allergies/Adverse Reactions: Allergies Allergy/AdvReac Type Severity Reaction Status Date / Time No Known Allergies Allergy Verified 03/25/18 20:59 - Medications Medications: Current Medications Albuterol/Ipratropium (Duoneb 3 Mg/0.5 Mg (3 Ml) Ud) 3 ml INH RQ6 [facility] Last Admin: 04/22/18 13:45 Dose: 3 ml Apixaban (Eliquis) 2.5 mg PO BID [facility] Last Admin: 04/21/18 10:29 Dose: Not Given Aspirin (Aspirin Chewable) 81 mg PO DAILY [facility] Last Admin: 04/21/18 10:31 Dose: 81 mg Diltiazem HCl (Cardizem) 30 mg PO QID [facility] Last Admin: 04/22/18 10:55 Dose: 30 mg Ferrous Sulfate (Feosol Liq) 300 mg PO TID [facility] Last Admin: 04/22/18 10:54 Dose: 300 mg Heparin Sodium (Porcine) (Heparin) 5,000 units SC Q8 [facility] Last Admin: 04/22/18 11:04 Dose: Not Given Fluconazole (Diflucan Iv 200 Mg/100 Ml Ns) 100 mls @ 100 mls/hr IVPB Q24H [facility]; Protocol Last Admin: 04/21/18 18:12 Dose: 100 mls/hr Piperacillin Sod/Tazobactam (Sod 3.375 gm/ Sodium Chloride) 100 mls @ 200 mls/hr IVPB Q8H [facility]; Protocol Vancomycin HCl 1 gm/ Sodium (Chloride) 250 mls @ 166.7 mls/hr IVPB Q12 [facility]; Protocol Insulin Aspart (Novolog) 0 unit SC Q6H [facility]; Protocol Last Admin: 04/21/18 18:13 Dose: Not Given Levothyroxine Sodium (Synthroid) 100 mcg IVP DAILY [facility] Multivitamins (Hexavitamin) 1 tab PO DAILY [facility] Last Admin: 04/22/18 10:54 Dose: 1 tab Pantoprazole Sodium (Protonix Inj) 20 mg IVP DAILY [facility] Last Admin: 04/22/18 11:08 Dose: 20 mg Rosuvastatin Calcium (Crestor) 5 mg PO HS [facility] Last Admin: 04/21/18 21:09 Dose: 5 mg Vitamin A (Vitamin A & D Oint Ud Foilpak) 0.5 ea TOP Q4 PRN PRN Reason: Dry mouth Last Admin: 04/21/18 10:27 Dose: 0.5 ea Physical Exam - Constitutional Appears: Cachectic, Chronically Ill - Head Exam Head Exam: ATRAUMATIC, NORMOCEPHALIC - Eye Exam Eye Exam: Normal appearance. absent: Scleral icterus - Cardiovascular Exam Cardiovascular Exam: Gallop, Irregular Rhythm - GI/Abdominal Exam GI & Abdominal Exam: absent: Guarding, Rebound - Extremities Exam Extremities exam: Positive for: normal inspection - Back Exam Back exam: NORMAL INSPECTION - Neurological Exam Additional comments: intubated Results - Vital Signs Recent Vital Signs: Last Vital Signs Temp 97.3 F L 04/22/18 07:00 Pulse 120 H 04/22/18 11:22 Resp 18 04/22/18 07:00 BP 147/97 H 04/22/18 07:00 Pulse Ox 100 04/22/18 07:00 - Labs Result Diagrams: 04/22/18 15:36 04/22/18 15:36 Labs: Laboratory Results - last 24 hr 04/21/18 20:44 POC Glucose (mg/dL) 169 H Assessment & Plan - Assessment and Plan (Free Text) Assessment: 67 year old female with past medical history of hypertension anxiety, CVA with mild left sided weakness and slurred speech, s/p coronary stent placement on 04/05/2018 who presented with acute respiratory failure and was intubated in the field. During the course of her current admission she was diagnosed with an advanced cancer of unknown primary and found to have a stroke affecting her speech and swallow. Due to the patient's speech and swallow impairment, she has been getting nutrition via NG tube with the plan on inserting a PEG tube this Friday. ICU was consulted after the patient was found to be in respiratory distress and intubated on the medical floor. She was found to have a troponin of 3.4 and started on a heparin drip. EKG did not show any ST changes consistent with ischemia. We will trend cardiac enzymes q6-8h x2. Ventilator setting are 50% FIO2, TV 350, Rate of 14, and PEEP of 5 on PRVC mode. Broad spectrum antibiotics were started by the primary team. We will follow up the patients pr ocalcitonin and cultures. We will continue to monitor the patient closely in the ICU. We will hold her Eliquis with the understanding that the patient is to get the PEG tube on Friday. We will resume her other medications as is, unless otherwise indicated. Case was reviewed and discussed with attending physician, Dr. Colon <Jeffrey Colon - Last Filed: 04/22/18 17:13> Meds - Medications Medications: Current Medications Albuterol/Ipratropium (Duoneb 3 Mg/0.5 Mg (3 Ml) Ud) 3 ml INH RQ6 [facility] Last Admin: 04/22/18 13:45 Dose: 3 ml Apixaban (Eliquis) 2.5 mg PO BID [facility] Last Admin: 04/21/18 10:29 Dose: Not Given Aspirin (Aspirin Chewable) 81 mg PO DAILY [facility] Last Admin: 04/21/18 10:31 Dose: 81 mg Clopidogrel Bisulfate (Plavix) 75 mg PO DAILY [facility] Diltiazem HCl (Cardizem) 30 mg PO QID [facility] Last Admin: 04/22/18 14:00 Dose: Not Given Ferrous Sulfate (Feosol Liq) 300 mg PO TID [facility] Last Admin: 04/22/18 10:54 Dose: 300 mg Fluconazole (Diflucan Iv 200 Mg/100 Ml Ns) 100 mls @ 100 mls/hr IVPB Q24H [facility]; Protocol Last Admin: 04/21/18 18:12 Dose: 100 mls/hr Piperacillin Sod/Tazobactam (Sod 3.375 gm/ Sodium Chloride) 100 mls @ 100 mls/hr IVPB Q8H [facility]; Protocol Last Admin: 04/22/18 16:26 Dose: 100 mls/hr Vancomycin/Sodium Chloride (Vancomycin 1 Gm/Ns 200 Ml) 1 gm in 200 mls @ 133.333 mls/hr IVPB Q12H [facility]; Protocol Stop: 04/27/18 22:01 Propofol (Diprivan) 1,000 mg in 100 mls @ 0.98 mls/hr IV .Q24H [facility]; Protocol PRN Reason: TITRATE PER MD ORDER Last Titration: 04/22/18 17:00 Dose: 10 mcg/kg/min, 1.96 mls/hr Heparin Sodium/Sodium Chloride (Heparin 01709 Units/250ml 1/2 Normal Saline) 25,000 units in 250 mls @ 3.919 mls/hr IV .Q24H PRN; Protocol PRN Reason: ADJUST RATE PER PROTOCOL Last Admin: 04/22/18 16:42 Dose: 12 units/kg/hr, 3.919 mls/hr Insulin Aspart (Novolog) 0 unit SC Q6H [facility]; Protocol Last Admin: 04/22/18 12:00 Dose: Not Given Levothyroxine Sodium (Synthroid) 100 mcg IVP DAILY [facility] Last Admin: 04/22/18 10:00 Dose: Not Given Multivitamins (Hexavitamin) 1 tab PO DAILY [facility] Last Admin: 04/22/18 10:54 Dose: 1 tab Pantoprazole Sodium (Protonix Inj) 20 mg IVP DAILY [facility] Last Admin: 04/22/18 11:08 Dose: 20 mg Rosuvastatin Calcium (Crestor) 5 mg PO HS [facility] Last Admin: 04/21/18 21:09 Dose: 5 mg Vitamin A (Vitamin A & D Oint Ud Foilpak) 0.5 ea TOP Q4 PRN PRN Reason: Dry mouth Last Admin: 04/21/18 10:27 Dose: 0.5 ea Results - Vital Signs Recent Vital Signs: Last Vital Signs Temp 97.3 F L 04/22/18 07:00 Pulse 120 H 04/22/18 11:22 Resp 18 04/22/18 07:00 BP 147/97 H 04/22/18 07:00 Pulse Ox 100 04/22/18 07:00 - Labs Result Diagrams: 04/22/18 15:36 04/22/18 15:36 Labs: Laboratory Results - last 24 hr 04/21/18 04/22/18 04/22/18 20:44 15:36 15:36 WBC 16.7 H RBC 3.03 L Hgb 9.6 L Hct 29.9 L MCV 98.7 MCH 31.9 H MCHC 32.3 L RDW 16.0 H Plt Count 281 MPV 9.8 Neut % (Auto) 93.2 H Lymph % (Auto) 1.4 L [place] % (Auto) 4.8 Eos % (Auto) 0.2 Baso % (Auto) 0.4 Neut # (Auto) 15.6 H Lymph # (Auto) 0.2 L [place] # (Auto) 0.8 Eos # (Auto) 0.0 Baso # (Auto) 0.1 PT INR APTT Puncture Site pCO2 pO2 HCO3 ABG pH ABG Total CO2 ABG O2 Saturation ABG Base Excess Caesar Test ABG Potassium A-a O2 Difference Respiratory Index Glucose Lactate Vent Mode Mechanical Rate FiO2 Tidal Volume PEEP Sodium 146 Potassium 4.4 Chloride 111 H Carbon Dioxide 32 H Anion Gap 8 L BUN 57 H Creatinine 1.2 Est GFR ( Amer) 54 Est GFR (Non-Af Amer) 45 POC Glucose (mg/dL) 169 H Random Glucose 211 H D Calcium 10.2 Phosphorus 5.1 H Magnesium 2.6 H Total Bilirubin 0.9 AST 60 H D ALT 47 Alkaline Phosphatase 143 H Troponin I 3.4400 H* Total Protein 5.9 L Albumin 3.2 L Globulin 2.7 Albumin/Globulin Ratio 1.1 Arterial Blood Potassium Urine Color Urine Clarity Urine pH Ur Specific [place] Urine Protein Urine Glucose (UA) Urine Ketones Urine Blood Urine Nitrate Urine Bilirubin Urine Urobilinogen Ur Leukocyte Esterase Urine WBC (Auto) Urine RBC (Auto) Urine Bacteria Hyaline Casts 04/22/18 04/22/18 04/22/18 15:56 15:56 16:31 WBC RBC Hgb Hct MCV MCH MCHC RDW Plt Count MPV Neut % (Auto) Lymph % (Auto) [place] % (Auto) Eos % (Auto) Baso % (Auto) Neut # (Auto) Lymph # (Auto) [place] # (Auto) Eos # (Auto) Baso # (Auto) PT 14.8 H INR 1.4 APTT 38 H Puncture Site Rra pCO2 40 pO2 365 H HCO3 31.4 H ABG pH 7.51 H ABG Total CO2 33.1 H ABG O2 Saturation 100.0 H ABG Base Excess 8.2 H Caesar Test Na ABG Potassium 4.1 A-a O2 Difference 298.0 Respiratory Index 0.8 Glucose 167 H Lactate 1.9 Vent Mode Prvc Mechanical Rate 14 FiO2 100.0 Tidal Volume 350 PEEP 5 Sodium 150.0 H Potassium Chloride 118.0 H Carbon Dioxide Anion Gap BUN Creatinine Est GFR ( Amer) Est GFR (Non-Af Amer) POC Glucose (mg/dL) Random Glucose Calcium Phosphorus Magnesium Total Bilirubin AST ALT Alkaline Phosphatase Troponin I Total Protein Albumin Globulin Albumin/Globulin Ratio Arterial Blood Potassium 4.1 Urine Color Yellow Urine Clarity Hazy Urine pH 6.0 Ur Specific [place] 1.016 Urine Protein 1+ H Urine Glucose (UA) Normal Urine Ketones Negative Urine Blood Small Urine Nitrate Negative Urine Bilirubin Negative Urine Urobilinogen 2.0 H Ur Leukocyte Esterase Neg Urine WBC (Auto) 3 Urine RBC (Auto) 14 H Urine Bacteria Few H Hyaline Casts 0-2 Assessment & Plan (1) CVA (cerebral vascular accident) Status: Acute (2) Metastatic cancer Status: Acute (3) COPD exacerbation Status: Acute Attending/Attestation - Attestation I have personally seen and examined this patient.: Yes I have fully participated in the care of the patient.: Yes I have reviewed all pertinent clinical information: Yes Notes (Text): 04/22/18 17:12 Patient seen and examined 67-year-old female transferred to intensive care unit after she got intubated for respiratory distress Continue ventilatory support Reduce FiO2 as tolerated IV sedation Heparin drip and continue Plavix/aspirin
--- NOTE | 2018-04-22 15:17 | RAD ---
Date of service: 04/22/2018 HISTORY: Shortness of breath COMPARISON: 04/22/2018 at 1:32 p.m.. FINDINGS: The nasogastric tube terminates in laterally positioned stomach. LUNGS: The lungs are well inflated and clear. PLEURA: No pleural effusions or pneumothorax. CARDIOVASCULAR: The heart is normal in size. No aortic atherosclerotic calcifications present. OSSEOUS STRUCTURES: Within normal limits for the patient's age. VISUALIZED UPPER ABDOMEN: Normal. OTHER FINDINGS: None. IMPRESSION: No active pulmonary disease.
[2018-04-22 15:43] LABS: BASO # 0.1 K/uL (0.0-0.2); BASO % 0.4 % (0.0-2.0); EOS % 0.2 % (0.0-4.0); HEMOGLOBIN 9.6 g/dL (11.0-16.0); LYMPH # 0.2 K/uL (1.0-4.3); LYMPH % 1.4 % (20.0-40.0); MEAN CELL VOLUME 98.7 fL (81.0-99.0); MEAN CORPUSCULAR HEMOGLOBIN 31.9 pg (27.0-31.0); MEAN CORPUSCULAR HGB CONC 32.3 g/dL (33.0-37.0); MEAN PLATELET VOLUME 9.8 fL (7.2-11.7); MONO # 0.8 K/uL (0.0-0.8); MONO % 4.8 % (0.0-10.0); NEUT # 15.6 K/uL (1.8-7.0); NEUT % 93.2 % (50.0-75.0); NRBC % 0.1 % (0.0-2.0); PLATELET COUNT 281 K/uL (130-400); RBC 3.03 Mil/uL (3.80-5.20); WHITE BLOOD COUNT 16.7 K/uL (4.8-10.8)
[2018-04-22 15:58] LABS: ALB/GLOB RATIO 1.1 (1.0-2.1); ALBUMIN 3.2 g/dL (3.5-5.0); CALCIUM 10.2 mg/dl (8.6-10.4)
[2018-04-22] MEDS ORDERED: Propofol 10 mg/ml 1,000 MG/100 ML VIAL IV PRN (16:03)
[2018-04-22 16:08] LABS: INR 1.4; PROTHROMBIN TIME 14.8 SECONDS (9.7-12.2)
[2018-04-22 16:10] LABS: URINE BACTERIA FEW (<OCC); URINE BILIRUBIN NEGATIVE (NEGATIVE); URINE CLARITY Hazy (Clear); URINE COLOR Yellow (YELLOW); URINE GLUCOSE (UA) NORMAL (Normal); URINE HYALINE CAST 0-2 /lpf (0-2); URINE LEUKOCYTE ESTERASE NEG Leu/uL (Negative); URINE PROTEIN 1+ mg/dL (NEGATIVE)
[2018-04-22 16:11] LABS: TROPONIN I 3.44 ng/mL (0.00-0.120)
[2018-04-22 16:11] LABS: URINE BLOOD SMALL (NEGATIVE)
[2018-04-22] MEDS: Piperacillin/Tazobact 3.375 GM in Sodium Chloride 100 ML IVPB SCH (16:26)
[2018-04-22 16:34] LABS: ARTERIAL BLOOD GAS HCO3 31.4 mmol/L (21-28); ARTERIAL BLOOD GAS PCO2 40 mm/Hg (35-45); ARTERIAL BLOOD GAS PH 7.51 (7.35-7.45); ARTERIAL BLOOD GAS PO2 365 mm/Hg (80-100); ARTERIAL BLOOD GAS TCO2 33.1 mmol/L (22-28)
[2018-04-22] MEDS: Heparin25000 units/250ml 1/2NS 25,000 UNITS/250 ML BAG IV PRN (16:42)
[2018-04-22 17:27] LABS: ANISOCYTOSIS SLIGHT; BANDS 9 % (0-2); EOSINOPHIL 1 % (0-4); LYMPHOCYTE 4 % (20-40); MONOCYTE 4 % (0-10); NEUTROPHIL 82 % (50-75); PLATELET ESTIMATE NORMAL (NORMAL); POIKILOCYTOSIS SLIGHT; TOTAL CELLS COUNTED 100
--- NOTE | 2018-04-22 17:59 | CP.PCM.CON ---
History of Present Illness - History of Present Illness History of Present Illness: 67 y/o PMH CAD sp stent 04/05/18, respiratory failure 04/09/18 requiring intubation in the field, CVA, HTN, thyroid nodule, metastatic cancer. Found to be in respiratory distress, unarousable/unresponsive to pain, requiring positive press ure mask ventilation. Paged overhead for stat intubation. Past Patient History - Infectious Disease Hx of Infectious Diseases: None - Past Medical History & Family History Past Medical History?: Yes - Past Social History Smoking Status: Never Smoked Chewing Tobacco Use: No Cigar Use: No Alcohol: None Home Situation {Lives}: With Family - CARDIAC Hx Cardiac Disorders: Yes (CAD s/p stent) Hx Atrial Fibrillation: Yes Hx Hypertension: Yes - PULMONARY Hx Chronic Obstructive Pulmonary Disease (COPD): Yes - NEUROLOGICAL HX Cerebrovascular Accident: Yes - HEENT Hx HEENT Problems: No - RENAL Hx Chronic Kidney Disease: No - ENDOCRINE/METABOLIC Hx Endocrine Disorders: No - HEMATOLOGICAL/ONCOLOGICAL Hx Blood Disorders: No - INTEGUMENTARY Hx Dermatological Problems: No - MUSCULOSKELETAL/RHEUMATOLOGICAL Hx Musculoskeletal Disorders: No Hx Falls: No - GASTROINTESTINAL Hx Gastrointestinal Disorders: No - GENITOURINARY/GYNECOLOGICAL Hx Genitourinary Disorders: No - PSYCHIATRIC Hx Substance Use: No - SURGICAL HISTORY Hx Coronary Stent: Yes - ANESTHESIA Hx Anesthesia: No Meds Allergies/Adverse Reactions: Allergies Allergy/AdvReac Type Severity Reaction Status Date / Time No Known Allergies Allergy Verified 03/25/18 20:59 - Medications Medications: Current Medications Albuterol/Ipratropium (Duoneb 3 Mg/0.5 Mg (3 Ml) Ud) 3 ml INH RQ6 [facility] Last Admin: 04/22/18 13:45 Dose: 3 ml Apixaban (Eliquis) 2.5 mg PO BID [facility] Last Admin: 04/21/18 10:29 Dose: Not Given Aspirin (Aspirin Chewable) 81 mg PO DAILY [facility] Last Admin: 04/21/18 10:31 Dose: 81 mg Clopidogrel Bisulfate (Plavix) 75 mg PO DAILY [facility] Last Admin: 04/22/18 17:41 Dose: 75 mg Diltiazem HCl (Cardizem) 30 mg PO QID [facility] Last Admin: 04/22/18 14:00 Dose: Not Given Famotidine (Pepcid) 20 mg IVP DAILY [facility] Ferrous Sulfate (Feosol Liq) 300 mg PO TID [facility] Last Admin: 04/22/18 10:54 Dose: 300 mg Fluconazole (Diflucan Iv 200 Mg/100 Ml Ns) 100 mls @ 100 mls/hr IVPB Q24H [facility]; Protocol Last Admin: 04/21/18 18:12 Dose: 100 mls/hr Piperacillin Sod/Tazobactam (Sod 3.375 gm/ Sodium Chloride) 100 mls @ 100 mls/hr IVPB Q8H [facility]; Protocol Last Admin: 04/22/18 16:26 Dose: 100 mls/hr Vancomycin/Sodium Chloride (Vancomycin 1 Gm/Ns 200 Ml) 1 gm in 200 mls @ 133.333 mls/hr IVPB Q12H [facility]; Protocol Stop: 04/27/18 22:01 Propofol (Diprivan) 1,000 mg in 100 mls @ 0.98 mls/hr IV .Q24H [facility]; Protocol PRN Reason: TITRATE PER MD ORDER Last Titration: 04/22/18 17:00 Dose: 10 mcg/kg/min, 1.96 mls/hr Heparin Sodium/Sodium Chloride (Heparin 46688 Units/250ml 1/2 Normal Saline) 25,000 units in 250 mls @ 3.919 mls/hr IV .Q24H [facility]N; Protocol PRN Reason: ADJUST RATE PER PROTOCOL Last Admin: 04/22/18 16:42 Dose: 12 units/kg/hr, 3.919 mls/hr Insulin Aspart (Novolog) 0 unit SC Q6H [facility]; Protocol Last Admin: 04/22/18 12:00 Dose: Not Given Levothyroxine Sodium (Synthroid) 100 mcg IVP DAILY [facility] Last Admin: 04/22/18 10:00 Dose: Not Given Multivitamins (Hexavitamin) 1 tab PO DAILY [facility] Last Admin: 04/22/18 10:54 Dose: 1 tab Rosuvastatin Calcium (Crestor) 5 mg PO HS [facility] Last Admin: 04/21/18 21:09 Dose: 5 mg Vitamin A (Vitamin A & D Oint Ud Foilpak) 0.5 ea TOP Q4 PRN PRN Reason: Dry mouth Last Admin: 04/21/18 10:27 Dose: 0.5 ea Physical Exam - Constitutional Appears: In Acute Distress, Chronically Ill - Respiratory Exam Respiratory Exam: Accessory Muscle Use, Respiratory Distress - Cardiovascular Exam Cardiovascular Exam: Tachycardia - GI/Abdominal Exam GI & Abdominal Exam: Soft Results - Vital Signs Recent Vital Signs: Last Vital Signs Temp 97.3 F L 04/22/18 07:00 Pulse 120 H 04/22/18 11:22 Resp 18 04/22/18 07:00 BP 147/97 H 04/22/18 07:00 Pulse Ox 100 04/22/18 07:00 - Labs Result Diagrams: 04/22/18 15:36 04/22/18 15:36 Labs: Laboratory Results - last 24 hr 04/21/18 04/22/18 04/22/18 20:44 15:36 15:36 WBC 16.7 H RBC 3.03 L Hgb 9.6 L Hct 29.9 L MCV 98.7 MCH 31.9 H MCHC 32.3 L RDW 16.0 H Plt Count 281 MPV 9.8 Neut % (Auto) 93.2 H Lymph % (Auto) 1.4 L [place] % (Auto) 4.8 Eos % (Auto) 0.2 Baso % (Auto) 0.4 Neut # (Auto) 15.6 H Lymph # (Auto) 0.2 L [place] # (Auto) 0.8 Eos # (Auto) 0.0 Baso # (Auto) 0.1 Neutrophils % (Manual) 82 H Band Neutrophils % 9 H Lymphocytes % (Manual) 4 L Monocytes % (Manual) 4 Eosinophils % (Manual) 1 Platelet Estimate Normal Poikilocytosis (manual Slight Anisocytosis (manual) Slight PT INR APTT Puncture Site pCO2 pO2 HCO3 ABG pH ABG Total CO2 ABG O2 Saturation ABG Base Excess Caesar Test ABG Potassium A-a O2 Difference Respiratory Index Glucose Lactate Vent Mode Mechanical Rate FiO2 Tidal Volume PEEP Sodium 146 Potassium 4.4 Chloride 111 H Carbon Dioxide 32 H Anion Gap 8 L BUN 57 H Creatinine 1.2 Est GFR ( Amer) 54 Est GFR (Non-Af Amer) 45 POC Glucose (mg/dL) 169 H Random Glucose 211 H D Calcium 10.2 Phosphorus 5.1 H Magnesium 2.6 H Total Bilirubin 0.9 AST 60 H D ALT 47 Alkaline Phosphatase 143 H Troponin I 3.4400 H* Total Protein 5.9 L Albumin 3.2 L Globulin 2.7 Albumin/Globulin Ratio 1.1 Procalcitonin Arterial Blood Potassium Urine Color Urine Clarity Urine pH Ur Specific [place] Urine Protein Urine Glucose (UA) Urine Ketones Urine Blood Urine Nitrate Urine Bilirubin Urine Urobilinogen Ur Leukocyte Esterase Urine WBC (Auto) Urine RBC (Auto) Urine Bacteria Hyaline Casts Blood Type Antibody Screen 04/22/18 04/22/18 04/22/18 15:36 15:56 15:56 WBC RBC Hgb Hct MCV MCH MCHC RDW Plt Count MPV Neut % (Auto) Lymph % (Auto) [place] % (Auto) Eos % (Auto) Baso % (Auto) Neut # (Auto) Lymph # (Auto) [place] # (Auto) Eos # (Auto) Baso # (Auto) Neutrophils % (Manual) Band Neutrophils % Lymphocytes % (Manual) Monocytes % (Manual) Eosinophils % (Manual) Platelet Estimate Poikilocytosis (manual Anisocytosis (manual) PT 14.8 H INR 1.4 APTT 38 H Puncture Site pCO2 pO2 HCO3 ABG pH ABG Total CO2 ABG O2 Saturation ABG Base Excess Caesar Test ABG Potassium A-a O2 Difference Respiratory Index Glucose Lactate Vent Mode Mechanical Rate FiO2 Tidal Volume PEEP Sodium Potassium Chloride Carbon Dioxide Anion Gap BUN Creatinine Est GFR ( Amer) Est GFR (Non-Af Amer) POC Glucose (mg/dL) Random Glucose Calcium Phosphorus Magnesium Total Bilirubin AST ALT Alkaline Phosphatase Troponin I Total Protein Albumin Globulin Albumin/Globulin Ratio Procalcitonin 0.35 Arterial Blood Potassium Urine Color Urine Clarity Urine pH Ur Specific [place] Urine Protein Urine Glucose (UA) Urine Ketones Urine Blood Urine Nitrate Urine Bilirubin Urine Urobilinogen Ur Leukocyte Esterase Urine WBC (Auto) Urine RBC (Auto) Urine Bacteria Hyaline Casts Blood Type O POSITIVE Antibody Screen Negative 04/22/18 04/22/18 15:56 16:31 WBC RBC Hgb Hct MCV MCH MCHC RDW Plt Count MPV Neut % (Auto) Lymph % (Auto) [place] % (Auto) Eos % (Auto) Baso % (Auto) Neut # (Auto) Lymph # (Auto) [place] # (Auto) Eos # (Auto) Baso # (Auto) Neutrophils % (Manual) Band Neutrophils % Lymphocytes % (Manual) Monocytes % (Manual) Eosinophils % (Manual) Platelet Estimate Poikilocytosis (manual Anisocytosis (manual) PT INR APTT Puncture Site Rra pCO2 40 pO2 365 H HCO3 31.4 H ABG pH 7.51 H ABG Total CO2 33.1 H ABG O2 Saturation 100.0 H ABG Base Excess 8.2 H Caesar Test Na ABG Potassium 4.1 A-a O2 Difference 298.0 Respiratory Index 0.8 Glucose 167 H Lactate 1.9 Vent Mode Prvc Mechanical Rate 14 FiO2 100.0 Tidal Volume 350 PEEP 5 Sodium 150.0 H Potassium Chloride 118.0 H Carbon Dioxide Anion Gap BUN Creatinine Est GFR ( Amer) Est GFR (Non-Af Amer) POC Glucose (mg/dL) Random Glucose Calcium Phosphorus Magnesium Total Bilirubin AST ALT Alkaline Phosphatase Troponin I Total Protein Albumin Globulin Albumin/Globulin Ratio Procalcitonin Arterial Blood Potassium 4.1 Urine Color Yellow Urine Clarity Hazy Urine pH 6.0 Ur Specific [place] 1.016 Urine Protein 1+ H Urine Glucose (UA) Normal Urine Ketones Negative Urine Blood Small Urine Nitrate Negative Urine Bilirubin Negative Urine Urobilinogen 2.0 H Ur Leukocyte Esterase Neg Urine WBC (Auto) 3 Urine RBC (Auto) 14 H Urine Bacteria Few H Hyaline Casts 0-2 Blood Type Antibody Screen
--- NOTE | 2018-04-22 18:04 | PCM.ANES ---
Anesthesia Emergent Intubation - Diagnosis Working Diagnosis:: respiratory failure - Intubation Attempts Previous Number of Intubation Attempts:: 0 - Pre-Intubation Vital Signs Blood Pressure: 134/60 Heart Rate: 100 Respiratory Rate: 24 O2 Sat: 85 FIO2: 100 Oxygen Delivery Method: Face Mask Level Of Consciousness: Comatose/Unresponsive, Unable to follow directions Intubation Meds Given: Etomidate, Succinylcholine - Airway Management Oropharyngeal Area Suctioned: Yes Rapid Sequence: Yes Cricoid Pressure: Yes Possible Aspiration: Yes (airway with secretions and blood on DL) - Method of Intubation Intubation Method: Oral ETT ETT Size: 7 Lipline@: 20 Easy: Yes Atramatic: Yes - Intubation Devices Jose Blade Size Used: 3 - Placement Confirmation Breath Sounds Present & Equal Bilaterally: Yes Gurgling Sounds Not Audible at Epigastrum: No Positive EtCO2: Yes Portable CXR: Yes Recommendations: Ventilator - Post-Intubation Vital Signs Blood Pressure: 130/60 Heart Rate: 105 Respiratory Rate: 18 O2 Sat: 95 FIO2: 50
[2018-04-22] MEDS: Fluconazole IV 200mg/100 ml NS 100 ML IVPB SCH (18:28)
--- NOTE | 2018-04-22 18:33 | CP.PCM.CON ---
History of Present Illness - History of Present Illness History of Present Illness: 67 year old female with past medical history of hypertension anxiety, CVA with mild left sided weakness and slurred speech, s/p coronary stent placement on 04/05/2018 who presented with acute respiratory failure and was intubated in the field on 04/09/2018. During the course of her current admission she was diagnosed with an advanced cancer of unknown primary and found to have a stroke impairing her speech and swallow enough that she has been getting nutrition via NG tube with the plan on inserting a PEG tube this Friday. The patient's Eliquis was held in light of this planned procedure starting yesterday. Today, 04/22/2018 in the morning, the patient pulled out the NGT and it was re-inserted. In the afternoon today, a rapid response was called when the patient was found by the nurse in respiratory distress covered in her own feces. Anesthesiology was paged overhead and the patient was subsequently intubated via RSI. She was brought to the ICU intubated. Cardiology was called in for positive troponin and recent Angioplasty and Stent. Past Patient History - Infectious Disease Hx of Infectious Diseases: None - Past Medical History & Family History Past Medical History?: Yes - Past Social History Smoking Status: Never Smoked Chewing Tobacco Use: No Cigar Use: No Alcohol: None Home Situation {Lives}: With Family - CARDIAC Hx Hypertension: Yes - PULMONARY Hx Chronic Obstructive Pulmonary Disease (COPD): Yes - NEUROLOGICAL HX Cerebrovascular Accident: Yes - HEENT Hx HEENT Problems: No - RENAL Hx Chronic Kidney Disease: No - ENDOCRINE/METABOLIC Hx Endocrine Disorders: No - HEMATOLOGICAL/ONCOLOGICAL Hx Blood Disorders: No - INTEGUMENTARY Hx Dermatological Problems: No - MUSCULOSKELETAL/RHEUMATOLOGICAL Hx Musculoskeletal Disorders: No Hx Falls: No - GASTROINTESTINAL Hx Gastrointestinal Disorders: No - GENITOURINARY/GYNECOLOGICAL Hx Genitourinary Disorders: No - PSYCHIATRIC Hx Substance Use: No - SURGICAL HISTORY Hx Coronary Stent: Yes - ANESTHESIA Hx Anesthesia: No Meds Allergies/Adverse Reactions: Allergies Allergy/AdvReac Type Severity Reaction Status Date / Time No Known Allergies Allergy Verified 03/25/18 20:59 - Medications Medications: Current Medications Albuterol/Ipratropium (Duoneb 3 Mg/0.5 Mg (3 Ml) Ud) 3 ml INH RQ6 [facility] Last Admin: 04/22/18 13:45 Dose: 3 ml Apixaban (Eliquis) 2.5 mg PO BID [facility] Last Admin: 04/21/18 10:29 Dose: Not Given Aspirin (Aspirin Chewable) 81 mg PO DAILY [facility] Last Admin: 04/21/18 10:31 Dose: 81 mg Clopidogrel Bisulfate (Plavix) 75 mg PO DAILY [facility] Last Admin: 04/22/18 17:41 Dose: 75 mg Diltiazem HCl (Cardizem) 30 mg PO QID [facility] Last Admin: 04/22/18 18:04 Dose: 30 mg Famotidine (Pepcid) 20 mg IVP DAILY [facility] Ferrous Sulfate (Feosol Liq) 300 mg PO TID [facility] Last Admin: 04/22/18 10:54 Dose: 300 mg Fluconazole (Diflucan Iv 200 Mg/100 Ml Ns) 100 mls @ 100 mls/hr IVPB Q24H [facility]; Protocol Last Admin: 04/22/18 18:28 Dose: 100 mls/hr Piperacillin Sod/Tazobactam (Sod 3.375 gm/ Sodium Chloride) 100 mls @ 100 mls/hr IVPB Q8H [facility]; Protocol Last Admin: 04/22/18 16:26 Dose: 100 mls/hr Vancomycin/Sodium Chloride (Vancomycin 1 Gm/Ns 200 Ml) 1 gm in 200 mls @ 133.333 mls/hr IVPB Q12H [facility]; Protocol Stop: 04/27/18 22:01 Propofol (Diprivan) 1,000 mg in 100 mls @ 0.98 mls/hr IV .Q24H [facility]N; Protocol PRN Reason: TITRATE PER MD ORDER Last Titration: 04/22/18 17:00 Dose: 10 mcg/kg/min, 1.96 mls/hr Heparin Sodium/Sodium Chloride (Heparin 52333 Units/250ml 1/2 Normal Saline) 25,000 units in 250 mls @ 3.919 mls/hr IV .Q24H PRN; Protocol PRN Reason: ADJUST RATE PER PROTOCOL Last Admin: 04/22/18 16:42 Dose: 12 units/kg/hr, 3.919 mls/hr Insulin Aspart (Novolog) 0 unit SC Q6H [facility]; Protocol Last Admin: 04/22/18 18:04 Dose: Not Given Levothyroxine Sodium (Synthroid) 100 mcg IVP DAILY [facility] Last Admin: 04/22/18 10:00 Dose: Not Given Multivitamins (Hexavitamin) 1 tab PO DAILY [facility] Last Admin: 04/22/18 10:54 Dose: 1 tab Rosuvastatin Calcium (Crestor) 5 mg PO HS [facility] Last Admin: 04/21/18 21:09 Dose: 5 mg Vitamin A (Vitamin A & D Oint Ud Foilpak) 0.5 ea TOP Q4 PRN PRN Reason: Dry mouth Last Admin: 04/21/18 10:27 Dose: 0.5 ea Physical Exam - Head Exam Head Exam: NORMOCEPHALIC - Neck Exam Neck exam: Positive for: Normal Inspection - Respiratory Exam Additional comments: Intubated. - Cardiovascular Exam Cardiovascular Exam: Tachycardia (Sinus tachycardia) Results - Vital Signs Recent Vital Signs: Last Vital Signs Temp 97.3 F L 04/22/18 07:00 Pulse 100 H 04/22/18 18:04 Resp 24 04/22/18 18:04 BP 134/60 04/22/18 18:04 Pulse Ox 85 L 04/22/18 18:04 - Labs Result Diagrams: 04/22/18 15:36 04/22/18 15:36 Labs: Laboratory Results - last 24 hr 04/21/18 04/21/18 04/21/18 16:30 20:44 23:59 WBC RBC Hgb Hct MCV MCH MCHC RDW Plt Count MPV Neut % (Auto) Lymph % (Auto) Sutter % (Auto) Eos % (Auto) Baso % (Auto) Neut # (Auto) Lymph # (Auto) Sutter # (Auto) Eos # (Auto) Baso # (Auto) Neutrophils % (Manual) Band Neutrophils % Lymphocytes % (Manual) Monocytes % (Manual) Eosinophils % (Manual) Platelet Estimate Poikilocytosis (manual Anisocytosis (manual) PT INR APTT Puncture Site pCO2 pO2 HCO3 ABG pH ABG Total CO2 ABG O2 Saturation ABG Base Excess Caesar Test ABG Potassium A-a O2 Difference Respiratory Index Glucose Lactate Vent Mode Mechanical Rate FiO2 Tidal Volume PEEP Sodium Potassium Chloride Carbon Dioxide Anion Gap BUN Creatinine Est GFR ( Amer) Est GFR (Non-Af Amer) POC Glucose (mg/dL) 169 H 169 H 184 H Random Glucose Calcium Phosphorus Magnesium Total Bilirubin AST ALT Alkaline Phosphatase Troponin I Total Protein Albumin Globulin Albumin/Globulin Ratio Procalcitonin Arterial Blood Potassium Urine Color Urine Clarity Urine pH Ur Specific [place] Urine Protein Urine Glucose (UA) Urine Ketones Urine Blood Urine Nitrate Urine Bilirubin Urine Urobilinogen Ur Leukocyte Esterase Urine WBC (Auto) Urine RBC (Auto) Urine Bacteria Hyaline Casts Blood Type Antibody Screen 04/22/18 04/22/18 04/22/18 06:19 11:39 14:37 WBC RBC Hgb Hct MCV MCH MCHC RDW Plt Count MPV Neut % (Auto) Lymph % (Auto) Sutter % (Auto) Eos % (Auto) Baso % (Auto) Neut # (Auto) Lymph # (Auto) Sutter # (Auto) Eos # (Auto) Baso # (Auto) Neutrophils % (Manual) Band Neutrophils % Lymphocytes % (Manual) Monocytes % (Manual) Eosinophils % (Manual) Platelet Estimate Poikilocytosis (manual Anisocytosis (manual) PT INR APTT Puncture Site pCO2 pO2 HCO3 ABG pH ABG Total CO2 ABG O2 Saturation ABG Base Excess Caesar Test ABG Potassium A-a O2 Difference Respiratory Index Glucose Lactate Vent Mode Mechanical Rate FiO2 Tidal Volume PEEP Sodium Potassium Chloride Carbon Dioxide Anion Gap BUN Creatinine Est GFR ( Amer) Est GFR (Non-Af Amer) POC Glucose (mg/dL) 145 H 181 H 257 H Random Glucose Calcium Phosphorus Magnesium Total Bilirubin AST ALT Alkaline Phosphatase Troponin I Total Protein Albumin Globulin Albumin/Globulin Ratio Procalcitonin Arterial Blood Potassium Urine Color Urine Clarity Urine pH Ur Specific [place] Urine Protein Urine Glucose (UA) Urine Ketones Urine Blood Urine Nitrate Urine Bilirubin Urine Urobilinogen Ur Leukocyte Esterase Urine WBC (Auto) Urine RBC (Auto) Urine Bacteria Hyaline Casts Blood Type Antibody Screen 04/22/18 04/22/18 04/22/18 15:36 15:36 15:36 WBC 16.7 H RBC 3.03 L Hgb 9.6 L Hct 29.9 L MCV 98.7 MCH 31.9 H MCHC 32.3 L RDW 16.0 H Plt Count 281 MPV 9.8 Neut % (Auto) 93.2 H Lymph % (Auto) 1.4 L Sutter % (Auto) 4.8 Eos % (Auto) 0.2 Baso % (Auto) 0.4 Neut # (Auto) 15.6 H Lymph # (Auto) 0.2 L Sutter # (Auto) 0.8 Eos # (Auto) 0.0 Baso # (Auto) 0.1 Neutrophils % (Manual) 82 H Band Neutrophils % 9 H Lymphocytes % (Manual) 4 L Monocytes % (Manual) 4 Eosinophils % (Manual) 1 Platelet Estimate Normal Poikilocytosis (manual Slight Anisocytosis (manual) Slight PT INR APTT Puncture Site pCO2 pO2 HCO3 ABG pH ABG Total CO2 ABG O2 Saturation ABG Base Excess Caesar Test ABG Potassium A-a O2 Difference Respiratory Index Glucose Lactate Vent Mode Mechanical Rate FiO2 Tidal Volume PEEP Sodium 146 Potassium 4.4 Chloride 111 H Carbon Dioxide 32 H Anion Gap 8 L BUN 57 H Creatinine 1.2 Est GFR ( Amer) 54 Est GFR (Non-Af Amer) 45 POC Glucose (mg/dL) Random Glucose 211 H D Calcium 10.2 Phosphorus 5.1 H Magnesium 2.6 H Total Bilirubin 0.9 AST 60 H D ALT 47 Alkaline Phosphatase 143 H Troponin I 3.4400 H* Total Protein 5.9 L Albumin 3.2 L Globulin 2.7 Albumin/Globulin Ratio 1.1 Procalcitonin 0.35 Arterial Blood Potassium Urine Color Urine Clarity Urine pH Ur Specific [place] Urine Protein Urine Glucose (UA) Urine Ketones Urine Blood Urine Nitrate Urine Bilirubin Urine Urobilinogen Ur Leukocyte Esterase Urine WBC (Auto) Urine RBC (Auto) Urine Bacteria Hyaline Casts Blood Type Antibody Screen 04/22/18 04/22/18 04/22/18 15:56 15:56 15:56 WBC RBC Hgb Hct MCV MCH MCHC RDW Plt Count MPV Neut % (Auto) Lymph % (Auto) Sutter % (Auto) Eos % (Auto) Baso % (Auto) Neut # (Auto) Lymph # (Auto) Sutter # (Auto) Eos # (Auto) Baso # (Auto) Neutrophils % (Manual) Band Neutrophils % Lymphocytes % (Manual) Monocytes % (Manual) Eosinophils % (Manual) Platelet Estimate Poikilocytosis (manual Anisocytosis (manual) PT 14.8 H INR 1.4 APTT 38 H Puncture Site pCO2 pO2 HCO3 ABG pH ABG Total CO2 ABG O2 Saturation ABG Base Excess Caesar Test ABG Potassium A-a O2 Difference Respiratory Index Glucose Lactate Vent Mode Mechanical Rate FiO2 Tidal Volume PEEP Sodium Potassium Chloride Carbon Dioxide Anion Gap BUN Creatinine Est GFR ( Amer) Est GFR (Non-Af Amer) POC Glucose (mg/dL) Random Glucose Calcium Phosphorus Magnesium Total Bilirubin AST ALT Alkaline Phosphatase Troponin I Total Protein Albumin Globulin Albumin/Globulin Ratio Procalcitonin Arterial Blood Potassium Urine Color Yellow Urine Clarity Hazy Urine pH 6.0 Ur Specific [place] 1.016 Urine Protein 1+ H Urine Glucose (UA) Normal Urine Ketones Negative Urine Blood Small Urine Nitrate Negative Urine Bilirubin Negative Urine Urobilinogen 2.0 H Ur Leukocyte Esterase Neg Urine WBC (Auto) 3 Urine RBC (Auto) 14 H Urine Bacteria Few H Hyaline Casts 0-2 Blood Type O POSITIVE Antibody Screen Negative 04/22/18 04/22/18 16:31 17:53 WBC RBC Hgb Hct MCV MCH MCHC RDW Plt Count MPV Neut % (Auto) Lymph % (Auto) Sutter % (Auto) Eos % (Auto) Baso % (Auto) Neut # (Auto) Lymph # (Auto) Sutter # (Auto) Eos # (Auto) Baso # (Auto) Neutrophils % (Manual) Band Neutrophils % Lymphocytes % (Manual) Monocytes % (Manual) Eosinophils % (Manual) Platelet Estimate Poikilocytosis (manual Anisocytosis (manual) PT INR APTT Puncture Site Rra pCO2 40 pO2 365 H HCO3 31.4 H ABG pH 7.51 H ABG Total CO2 33.1 H ABG O2 Saturation 100.0 H ABG Base Excess 8.2 H Caesar Test Na ABG Potassium 4.1 A-a O2 Difference 298.0 Respiratory Index 0.8 Glucose 167 H Lactate 1.9 Vent Mode Prvc Mechanical Rate 14 FiO2 100.0 Tidal Volume 350 PEEP 5 Sodium 150.0 H Potassium Chloride 118.0 H Carbon Dioxide Anion Gap BUN Creatinine Est GFR ( Amer) Est GFR (Non-Af Amer) POC Glucose (mg/dL) 167 H Random Glucose Calcium Phosphorus Magnesium Total Bilirubin AST ALT Alkaline Phosphatase Troponin I Total Protein Albumin Globulin Albumin/Globulin Ratio Procalcitonin Arterial Blood Potassium 4.1 Urine Color Urine Clarity Urine pH Ur Specific [place] Urine Protein Urine Glucose (UA) Urine Ketones Urine Blood Urine Nitrate Urine Bilirubin Urine Urobilinogen Ur Leukocyte Esterase Urine WBC (Auto) Urine RBC (Auto) Urine Bacteria Hyaline Casts Blood Type Antibody Screen Assessment & Plan (1) NSTEMI (non-ST elevated myocardial infarction) Assessment and Plan: Patient with CAD with S/P PTAC and stent of RCA. Positive troponin with intubation. EKG changes. Recommend DAPT with heparin. Will consider cardiac cath when extubated and if family agrees fir intervention. Given her other issues prognosis guarded. Status: Acute
--- NOTE | 2018-04-22 20:01 | PN ---
DATE: 04/22/2018 ENDOCRINOLOGY FOLLOWUP NOTE LOCATION: ICU, room 10. SUBJECTIVE: The patient is a [id number] with recent acute respiratory failure and subsequent endotracheal intubation and transferred here to the ICU for closure hemodynamic monitoring and is now being followed closely for metabolic management. Her glycemic levels are fluctuating but improved and her glucose values have ranged from 173 to 197 and 215 mg/dL. Her latest chemistry showed the BUN of 43, sodium 140, potassium 4.3, chloride 104, CO2 of 34, glucose 157 and creatinine 0.8. Her fine needle aspiration biopsy for the dominant right thyroid nodule is an underlying multinodular goiter is still pending at this time as noted. She also has biochemical evidence of markedly elevated CA 19-9 indicative of possible pancreatic malignancy and is undergoing also GI workup at this time. Her oral anticoagulants have been withheld in preparation for the needle aspiration biopsies as noted. So at this time we will continue the levothyroxine given as 100 mcg once daily, given IV push as ordered. Her NG tube actually was pulled out by the patient today as noted. We will obtain serial chemistries and supplement accordingly as needed. We will also obtain serial thyroid studies and adjust her levothyroxine dose accordingly. We will follow. Akiko Erazo MD
[2018-04-22] MEDS ORDERED: Sodium Chloride 0.9% 500 ML IV ONE ×2 (21:12→22:00)
[2018-04-22] MEDS ORDERED: Vancomycin 1 gm/NS 200 ml 1 GM/200 ML BAG IVPB SCH (22:00)
[2018-04-22 23:25] LABS: CK-MB 12.2 ng/mL (0.0-3.38)
[2018-04-23] MEDS: Piperacillin/Tazobact 3.375 GM in Sodium Chloride 100 ML IVPB SCH (00:06)
[2018-04-23] MEDS: (Novolog) Insulin Aspart, Recombinant 100 u/ml 10 ml vial SC SCH ×4 (00:07→18:22)
[2018-04-23 00:16] LABS: TROPONIN I 7.74 ng/mL (0.00-0.120)
[2018-04-23] MEDS: Albuterol-Ipratrop 3 mg / 0.5 (3 ml) UD INH SCH ×3 (01:34→19:09)
[2018-04-23 05:46] LABS: ARTERIAL BLOOD GAS HCO3 25.2 mmol/L (21-28); ARTERIAL BLOOD GAS HEMOGLOBIN 7.6 g/dL (11.7-17.4); ARTERIAL BLOOD GAS O2 SAT 99.9 % (95-98); ARTERIAL BLOOD GAS PCO2 28 mm/Hg (35-45); ARTERIAL BLOOD GAS PH 7.52 (7.35-7.45); ARTERIAL BLOOD GAS PO2 180 mm/Hg (80-100); ARTERIAL BLOOD GAS TCO2 23.8 mmol/L (22-28)
[2018-04-23 05:59] LABS: BASO # 0.2 K/uL (0.0-0.2); BASO % 1.2 % (0.0-2.0); EOS # 0.2 K/uL (0.0-0.7); LYMPH # 0.5 K/uL (1.0-4.3); LYMPH % 2.8 % (20.0-40.0); MEAN CELL VOLUME 98.8 fL (81.0-99.0); MEAN CORPUSCULAR HEMOGLOBIN 30.4 pg (27.0-31.0); MEAN CORPUSCULAR HGB CONC 30.8 g/dL (33.0-37.0); MEAN PLATELET VOLUME 10.9 fL (7.2-11.7); MONO # 0.4 K/uL (0.0-0.8); MONO % 2.3 % (0.0-10.0); NEUT # 17.5 K/uL (1.8-7.0); NEUT % 92.7 % (50.0-75.0); NRBC % 0.6 % (0.0-2.0); PLATELET COUNT 187 K/uL (130-400); RBC 2.43 Mil/uL (3.80-5.20); RED CELL DISTRIBUTION WIDTH 16.5 % (11.5-14.5); WHITE BLOOD COUNT 18.9 K/uL (4.8-10.8)
[2018-04-23 06:02] LABS: HEMOGLOBIN 7.4 g/dL (11.0-16.0)
[2018-04-23 06:11] LABS: ALBUMIN 2.2 g/dL (3.5-5.0)
[2018-04-23 06:28] LABS: CK-MB 14.5 ng/mL (0.0-3.38)
--- NOTE | 2018-04-23 06:33 | PN ---
DATE: 04/22/2018 FOLLOWUP A 67-year-old woman with widely metastatic cancer. The CAT scan continued to show pleural effusion, pleural thickening, and they could not really see the pancreas. The other issue is the bone scan. The bone scan shows evidence of bony metastases to the left shoulder, left humerus, bilateral femurs . It is widely metastatic cancer. We are still awaiting the biopsy report, but the laboratory findings show a thyroglobulin antibody of greater than 1000. She also shows a CA 19-9 that is 13,000, which will go along with the pancreas cancer that we are not able to visualize on the CAT scans. So, at this point we are awaiting for the final pathology report. If we do not have one, we may want to . We may want to do a bone marrow aspiration biopsy, but my understanding is that we are waiting for the pathology report. Ayaan Cruz MD
--- NOTE | 2018-04-23 06:57 | CP.PCM.PN ---
Subjective - Date & Time of Evaluation Date of Evaluation: 04/23/18 Time of Evaluation: 06:42 - Subjective Subjective: Anton Alegre D.O. PGY-3, Internal Medicine Resident, Endocrinology Progress Note 67 year old female with a PMH of HTN, HLD, anxiety, CVA with residual L sided weakness, COPD, and CAD s/p stenting who presented in respiratory distress, now undergoing evaluation for possible thyroid and/or pancreatic CA. Endocrinology was consulted for the multinodular thyroid gland. Patient was seen and examined at bedside in the ICU. Patient has respiratory distress requiring intubation last night. at bedside. Objective - Vital Signs/Intake and Output Vital Signs (last 24 hours): Temp Pulse Resp BP Pulse Ox 98.8 F 114 H 22 120/83 100 04/23/18 04:00 04/23/18 06:29 04/23/18 06:29 04/23/18 06:29 04/23/18 06:29 Intake and Output: 04/22/18 04/23/18 18:59 06:59 Intake Total 220.1 1356.2 Output Total 35 270 Balance 185.1 1086.2 - Medications Medications: Current Medications Albuterol/Ipratropium (Duoneb 3 Mg/0.5 Mg (3 Ml) Ud) 3 ml INH RQ6 [facility] Last Admin: 04/23/18 01:34 Dose: 3 ml Apixaban (Eliquis) 2.5 mg PO BID [facility] Last Admin: 04/21/18 10:29 Dose: Not Given Aspirin (Aspirin Chewable) 81 mg PO DAILY [facility] Clopidogrel Bisulfate (Plavix) 75 mg PO DAILY [facility] Last Admin: 04/22/18 17:41 Dose: 75 mg Diltiazem HCl (Cardizem) 30 mg PO QID [facility] Last Admin: 04/22/18 22:11 Dose: Not Given Famotidine (Pepcid) 20 mg IVP DAILY [facility] Ferrous Sulfate (Feosol Liq) 300 mg PO TID [facility] Last Admin: 04/22/18 10:54 Dose: 300 mg Fluconazole (Diflucan Iv 200 Mg/100 Ml Ns) 100 mls @ 100 mls/hr IVPB Q24H [facility]; Protocol Last Admin: 04/22/18 18:28 Dose: 100 mls/hr Piperacillin Sod/Tazobactam (Sod 3.375 gm/ Sodium Chloride) 100 mls @ 100 mls/hr IVPB Q8H [facility]; Protocol Last Admin: 04/23/18 00:06 Dose: 100 mls/hr Vancomycin/Sodium Chloride (Vancomycin 1 Gm/Ns 200 Ml) 1 gm in 200 mls @ 133.333 mls/hr IVPB Q12H [facility]; Protocol Stop: 04/27/18 22:01 Last Admin: 04/22/18 22:26 Dose: 133.333 mls/hr Propofol (Diprivan) 1,000 mg in 100 mls @ 0.98 mls/hr IV .Q24H [facility]; Protocol PRN Reason: TITRATE PER MD ORDER Last Titration: 04/22/18 22:10 Dose: 0 mcg/kg/min, 0 mls/hr Heparin Sodium/Sodium Chloride (Heparin 83491 Units/250ml 1/2 Normal Saline) 25,000 units in 250 mls @ 3.919 mls/hr IV .Q24H [facility]; Protocol PRN Reason: ADJUST RATE PER PROTOCOL Last Admin: 04/22/18 16:42 Dose: 12 units/kg/hr, 3.919 mls/hr Insulin Aspart (Novolog) 0 unit SC Q6H [facility]; Protocol Last Admin: 04/23/18 06:37 Dose: Not Given Levothyroxine Sodium (Synthroid) 100 mcg IVP DAILY [facility] Last Admin: 04/22/18 10:00 Dose: Not Given Multivitamins (Hexavitamin) 1 tab PO DAILY [facility] Last Admin: 04/22/18 10:54 Dose: 1 tab Rosuvastatin Calcium (Crestor) 5 mg PO HS [facility] Last Admin: 04/22/18 22:11 Dose: 5 mg Vitamin A (Vitamin A & D Oint Ud Foilpak) 0.5 ea TOP Q4 PRN PRN Reason: Dry mouth Last Admin: 04/21/18 10:27 Dose: 0.5 ea - Labs Labs: 04/23/18 05:55 04/23/18 05:55 PT 14.8 SECONDS (9.7-12.2) H 04/22/18 15:56 INR 1.4 04/22/18 15:56 APTT 61 SECONDS (21-34) H D 04/23/18 05:55 - Constitutional Appears: Cachectic, Chronically Ill - Head Exam Head Exam: NORMOCEPHALIC - Eye Exam Eye Exam: EOMI. absent: Scleral icterus - ENT Exam ENT Exam: intubated - Respiratory Exam Respiratory Exam: Coarse, absent: Wheezes - Cardiovascular Exam Cardiovascular Exam: RRR, +S1, +S2 - GI/Abdominal Exam GI & Abdominal Exam: Soft, non-distended - Extremities Exam Extremities Exam: absent: Pedal Edema - Neurological Exam Neurological Exam: on sedation - Skin Skin Exam: Dry, Warm Assessment and Plan - Assessment and Plan (Free Text) Assessment: 67 year old female with a PMH of HTN, HLD, anxiety, CVA with residual L sided weakness, COPD, and CAD s/p stenting who presented in respiratory distress, now undergoing evaluation for possible thyroid and/or pancreatic CA. Endocrinology was consulted for the multinodular thyroid gland. Hospital course complicated by respiratory distress. Plan: 1. Multinodular thyroid disease/hypothyroidism 2. 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 Respiratory distress requiring intubation Will continue with IV levothyroxine therapy at this time at 100mcg Will recheck TSH and T4 tomorrow morning Patient's prognosis is very guarded at this time Patient was seen and examined and case to be discussed with attending physician Dr. Erazo.
[2018-04-23 07:53] LABS: BANDS 8 % (0-2); EOSINOPHIL 1 % (0-4); LYMPHOCYTE 4 % (20-40); MONOCYTE 1 % (0-10); NEUTROPHIL 86 % (50-75); PLATELET ESTIMATE NORMAL (NORMAL); TOTAL CELLS COUNTED 100
[2018-04-23 07:54] LABS: ANISOCYTOSIS SLIGHT
[2018-04-23 07:55] LABS: HYPOCHROMIC SLIGHT; POLYCHROMIC SLIGHT
--- NOTE | 2018-04-23 08:35 | RAD ---
Date of service: 04/23/2018 HISTORY: intubated COMPARISON: 04/22/2018. FINDINGS: Endotracheal tube terminates 2 cm proximal to gomez. The nasogastric tube terminates in the stomach LUNGS: The lungs are well inflated and clear. PLEURA: No pleural effusions or pneumothorax. CARDIOVASCULAR: The heart is normal in size. There are aortic atherosclerotic calcifications present. OSSEOUS STRUCTURES: There is redemonstration of a subacute displaced fracture in the midshaft of the right clavicle. VISUALIZED UPPER ABDOMEN: Normal. OTHER FINDINGS: None. IMPRESSION: No active pulmonary disease. Stable position of support tubes.
[2018-04-23] MEDS: Piperacillin/Tazobact 2.25 GM in Sodium Chloride 100 ML IVPB SCH ×3 (08:48→23:54)
--- NOTE | 2018-04-23 09:15 | CP.PCM.PN ---
Subjective - Date & Time of Evaluation Date of Evaluation: 04/23/18 Time of Evaluation: 08:00 - Subjective Subjective: f/u dysphagia. Above events noted- resp arrest, code, intubated. No report of RB, melena, SZ, POOLE, hematuria, hemoptysis Objective - Vital Signs/Intake and Output Vital Signs (last 24 hours): Temp Pulse Resp BP Pulse Ox 99.9 F H 110 H 17 107/81 98 04/23/18 08:00 04/23/18 09:00 04/23/18 09:00 04/23/18 08:11 04/23/18 09:00 Intake and Output: 04/23/18 04/23/18 06:59 18:59 Intake Total 1356.2 121.7 Output Total 270 27 Balance 1086.2 94.7 - Medications Medications: Current Medications Albuterol/Ipratropium (Duoneb 3 Mg/0.5 Mg (3 Ml) Ud) 3 ml INH RQ6 [facility] Last Admin: 04/23/18 07:30 Dose: 3 ml Apixaban (Eliquis) 2.5 mg PO BID [facility] Last Admin: 04/21/18 10:29 Dose: Not Given Aspirin (Aspirin Chewable) 81 mg PO DAILY [facility] Clopidogrel Bisulfate (Plavix) 75 mg PO DAILY [facility] Diltiazem HCl (Cardizem) 30 mg PO QID [facility] Last Admin: 04/22/18 22:11 Dose: Not Given Famotidine (Pepcid) 20 mg IVP DAILY [facility] Ferrous Sulfate (Feosol Liq) 300 mg PO TID [facility] Last Admin: 04/22/18 10:54 Dose: 300 mg Fluconazole (Diflucan Iv 200 Mg/100 Ml Ns) 100 mls @ 100 mls/hr IVPB Q24H [facility]; Protocol Last Admin: 04/22/18 18:28 Dose: 100 mls/hr Vancomycin/Sodium Chloride (Vancomycin 1 Gm/Ns 200 Ml) 1 gm in 200 mls @ 133.333 mls/hr IVPB Q12H [facility]; Protocol Stop: 04/27/18 22:01 Last Admin: 04/22/18 22:26 Dose: 133.333 mls/hr Propofol (Diprivan) 1,000 mg in 100 mls @ 0.98 mls/hr IV .Q24H [facility]; Protocol PRN Reason: TITRATE PER MD ORDER Last Titration: 04/22/18 22:10 Dose: 0 mcg/kg/min, 0 mls/hr Heparin Sodium/Sodium Chloride (Heparin 95372 Units/250ml 1/2 Normal Saline) 25,000 units in 250 mls @ 3.919 mls/hr IV .Q24H [facility]; Protocol PRN Reason: ADJUST RATE PER PROTOCOL Last Admin: 04/22/18 16:42 Dose: 12 units/kg/hr, 3.919 mls/hr Piperacillin Sod/Tazobactam (Sod 2.25 gm/ Sodium Chloride) 100 mls @ 100 mls/hr IVPB Q8H [facility]; Protocol Last Admin: 04/23/18 08:48 Dose: 100 mls/hr Insulin Aspart (Novolog) 0 unit SC Q6H [facility]; Protocol Last Admin: 04/23/18 06:37 Dose: Not Given Levothyroxine Sodium (Synthroid) 100 mcg IVP DAILY [facility] Last Admin: 04/22/18 10:00 Dose: Not Given Multivitamins (Hexavitamin) 1 tab PO DAILY [facility] Last Admin: 04/22/18 10:54 Dose: 1 tab Rosuvastatin Calcium (Crestor) 5 mg PO HS [facility] Last Admin: 04/22/18 22:11 Dose: 5 mg Vitamin A (Vitamin A & D Oint Ud Foilpak) 0.5 ea TOP Q4 PRN PRN Reason: Dry mouth Last Admin: 04/21/18 10:27 Dose: 0.5 ea - Labs Labs: 04/23/18 05:55 04/23/18 05:55 PT 14.8 SECONDS (9.7-12.2) H 04/22/18 15:56 INR 1.4 04/22/18 15:56 APTT 61 SECONDS (21-34) H D 04/23/18 05:55 - Constitutional Appears: Chronically Ill - Eye Exam Eye Exam: absent: Scleral icterus - Respiratory Exam Respiratory Exam: Clear to Ausculation Bilateral - Cardiovascular Exam Cardiovascular Exam: Irregular Rhythm - GI/Abdominal Exam GI & Abdominal Exam: Soft, Normal Bowel Sounds. absent: Tenderness, Mass - Extremities Exam Extremities Exam: absent: Pedal Edema - Neurological Exam Neurological Exam: absent: Oriented x3 Assessment and Plan (1) COPD (chronic obstructive pulmonary disease) Status: Acute (2) Elevated transaminase level Assessment & Plan: likely related to code and hypotension. Status: Acute (3) Anemia Assessment & Plan: with drop Hb after code. No report of bleeding. PT is on ASA, Eliquis, heparin. Rec- PPI, check Hb, check OB Status: Acute (4) Acute respiratory failure Assessment & Plan: intubated Status: Acute (5) CVA (cerebral vascular accident) Status: Acute (6) Cachexia Status: Acute (7) Dysphagia as late effect of cerebrovascular accident (CVA) Assessment & Plan: Hold PEG due to recent events. Status: Acute (8) Metastatic cancer Assessment & Plan: Unknown primary- consider thyroid Status: Acute (9) NSTEMI (non-ST elevated myocardial infarction) Status: Acute - Assessment and Plan (Free Text) Assessment: HOLD PEG DUE TO RECENT EVENTS.
[2018-04-23] MEDS ORDERED: Promethazine DM 6.25 mg-15 mg/5 ml Syrup PO PRN (09:37)
[2018-04-23] MEDS: Multiple Vitamins Tab PO SCH (10:04)
--- NOTE | 2018-04-23 10:32 | CP.PCM.PN ---
Subjective - Date & Time of Evaluation Date of Evaluation: 04/23/18 Time of Evaluation: 11:00 - Subjective Subjective: chart review episode of Respiratory distress intubated transferred to ICU DNR status noted patient seen in ICU intubated by bedside- further discussion does not want any further suffering on DNR status Objective - Vital Signs/Intake and Output Vital Signs (last 24 hours): Temp Pulse Resp BP Pulse Ox 99.9 F H 114 H 20 83/54 L 100 04/23/18 08:00 04/23/18 09:46 04/23/18 09:46 04/23/18 09:46 04/23/18 09:46 Intake and Output: 04/23/18 04/23/18 06:59 18:59 Intake Total 1356.2 121.7 Output Total 270 27 Balance 1086.2 94.7 - Medications Medications: Current Medications Albuterol/Ipratropium (Duoneb 3 Mg/0.5 Mg (3 Ml) Ud) 3 ml INH RQ6 [facility] Last Admin: 04/23/18 07:30 Dose: 3 ml Apixaban (Eliquis) 2.5 mg PO BID [facility] Last Admin: 04/21/18 10:29 Dose: Not Given Aspirin (Aspirin Chewable) 81 mg PO DAILY [facility] Last Admin: 04/23/18 10:05 Dose: 81 mg Clopidogrel Bisulfate (Plavix) 75 mg PO DAILY [facility] Last Admin: 04/23/18 10:06 Dose: 75 mg Diltiazem HCl (Cardizem) 30 mg PO QID [facility] Last Admin: 04/23/18 10:04 Dose: 30 mg Famotidine (Pepcid) 20 mg IVP DAILY [facility] Last Admin: 04/23/18 10:30 Dose: 20 mg Ferrous Sulfate (Feosol Liq) 300 mg PO TID [facility] Last Admin: 04/22/18 10:54 Dose: 300 mg Fluconazole (Diflucan Iv 200 Mg/100 Ml Ns) 100 mls @ 100 mls/hr IVPB Q24H [facility]; Protocol Last Admin: 04/22/18 18:28 Dose: 100 mls/hr Vancomycin/Sodium Chloride (Vancomycin 1 Gm/Ns 200 Ml) 1 gm in 200 mls @ 133.333 mls/hr IVPB Q12H [facility]; Protocol Stop: 04/27/18 22:01 Last Admin: 04/22/18 22:26 Dose: 133.333 mls/hr Propofol (Diprivan) 1,000 mg in 100 mls @ 0.98 mls/hr IV .Q24H PRN; Protocol PRN Reason: TITRATE PER MD ORDER Last Titration: 04/22/18 22:10 Dose: 0 mcg/kg/min, 0 mls/hr Heparin Sodium/Sodium Chloride (Heparin 16322 Units/250ml 1/2 Normal Saline) 25,000 units in 250 mls @ 3.919 mls/hr IV .Q24H PRN; Protocol PRN Reason: ADJUST RATE PER PROTOCOL Last Admin: 04/22/18 16:42 Dose: 12 units/kg/hr, 3.919 mls/hr Piperacillin Sod/Tazobactam (Sod 2.25 gm/ Sodium Chloride) 100 mls @ 100 mls/hr IVPB Q8H [facility]; Protocol Last Admin: 04/23/18 08:48 Dose: 100 mls/hr Insulin Aspart (Novolog) 0 unit SC Q6H [facility]; Protocol Last Admin: 04/23/18 06:37 Dose: Not Given Levothyroxine Sodium (Synthroid) 100 mcg IVP DAILY [facility] Last Admin: 04/22/18 10:00 Dose: Not Given Multivitamins (Hexavitamin) 1 tab PO DAILY [facility] Last Admin: 04/23/18 10:04 Dose: 1 tab Promethazine HCl/Dextromethorphan (Phenergan Dm Syrup) 5 ml PO Q6H PRN PRN Reason: Cough and congestion Rosuvastatin Calcium (Crestor) 5 mg PO HS [facility] Last Admin: 04/22/18 22:11 Dose: 5 mg Vitamin A (Vitamin A & D Oint Ud Foilpak) 0.5 ea TOP Q4 PRN PRN Reason: Dry mouth Last Admin: 04/21/18 10:27 Dose: 0.5 ea - Labs Labs: 04/23/18 05:55 04/23/18 05:55 PT 14.8 SECONDS (9.7-12.2) H 04/22/18 15:56 INR 1.4 04/22/18 15:56 APTT 61 SECONDS (21-34) H D 04/23/18 05:55 - Constitutional Appears: Other (intubated sedated no unusual movements) - Respiratory Exam Respiratory Exam: Decreased Breath Sounds - GI/Abdominal Exam GI & Abdominal Exam: absent: Distended - Extremities Exam Extremities Exam: absent: Joint Swelling, Pedal Edema - Back Exam Back Exam: absent: rash noted - Skin Skin Exam: absent: Rash Assessment and Plan - Assessment and Plan (Free Text) Assessment: Patient with Metastatic lesion- Stage 4 status with unknown primary lesion- now with Respiratory failure intubated CVa on CVA - CAD with stent currently another NSTEMI Anemia Atrial fibrillation poor prognosis family decided DNR status but wants other supportive measures to carry like antibiotic, transfusion family aware f condition and plan
--- NOTE | 2018-04-23 10:33 | CP.PCM.PN ---
Subjective - Date & Time of Evaluation Date of Evaluation: 04/23/18 Time of Evaluation: 10:33 - Subjective Subjective: pt is seen and examined, follow up consult is dictated#[id number] 1. Acute [place] 2. acute resp. failure 3. anemia 4. DEVIN 5. hypotension with elevated lft's r/o shick liver 6. radiologogic evidence of metastatic bone disease, primary source is not clear, r/p pancreatic ca, r/o colon ca c/w iv heparin a sper cardiology consider gentle iv hydration, ns at 70 ml/hr over all prognosis is very poor Objective - Vital Signs/Intake and Output Vital Signs (last 24 hours): Temp Pulse Resp BP Pulse Ox 99.9 F H 114 H 20 83/54 L 100 04/23/18 08:00 04/23/18 09:46 04/23/18 09:46 04/23/18 09:46 04/23/18 09:46 Intake and Output: 04/23/18 04/23/18 06:59 18:59 Intake Total 1356.2 121.7 Output Total 270 27 Balance 1086.2 94.7 - Medications Medications: Current Medications Albuterol/Ipratropium (Duoneb 3 Mg/0.5 Mg (3 Ml) Ud) 3 ml INH RQ6 [facility] Last Admin: 04/23/18 07:30 Dose: 3 ml Apixaban (Eliquis) 2.5 mg PO BID [facility] Last Admin: 04/21/18 10:29 Dose: Not Given Aspirin (Aspirin Chewable) 81 mg PO DAILY [facility] Last Admin: 04/23/18 10:05 Dose: 81 mg Clopidogrel Bisulfate (Plavix) 75 mg PO DAILY [facility] Last Admin: 04/23/18 10:06 Dose: 75 mg Diltiazem HCl (Cardizem) 30 mg PO QID [facility] Last Admin: 04/23/18 10:04 Dose: 30 mg Famotidine (Pepcid) 20 mg IVP DAILY [facility] Last Admin: 04/23/18 10:30 Dose: 20 mg Ferrous Sulfate (Feosol Liq) 300 mg PO TID [facility] Last Admin: 04/22/18 10:54 Dose: 300 mg Fluconazole (Diflucan Iv 200 Mg/100 Ml Ns) 100 mls @ 100 mls/hr IVPB Q24H [facility]; Protocol Last Admin: 04/22/18 18:28 Dose: 100 mls/hr Vancomycin/Sodium Chloride (Vancomycin 1 Gm/Ns 200 Ml) 1 gm in 200 mls @ 133.333 mls/hr IVPB Q12H [facility]; Protocol Stop: 04/27/18 22:01 Last Admin: 04/22/18 22:26 Dose: 133.333 mls/hr Propofol (Diprivan) 1,000 mg in 100 mls @ 0.98 mls/hr IV .Q24H PRN; Protocol PRN Reason: TITRATE PER MD ORDER Last Titration: 04/22/18 22:10 Dose: 0 mcg/kg/min, 0 mls/hr Heparin Sodium/Sodium Chloride (Heparin 32301 Units/250ml 1/2 Normal Saline) 25,000 units in 250 mls @ 3.919 mls/hr IV .Q24H PRN; Protocol PRN Reason: ADJUST RATE PER PROTOCOL Last Admin: 04/22/18 16:42 Dose: 12 units/kg/hr, 3.919 mls/hr Piperacillin Sod/Tazobactam (Sod 2.25 gm/ Sodium Chloride) 100 mls @ 100 mls/hr IVPB Q8H [facility]; Protocol Last Admin: 04/23/18 08:48 Dose: 100 mls/hr Insulin Aspart (Novolog) 0 unit SC Q6H [facility]; Protocol Last Admin: 04/23/18 06:37 Dose: Not Given Levothyroxine Sodium (Synthroid) 100 mcg IVP DAILY [facility] Last Admin: 04/22/18 10:00 Dose: Not Given Multivitamins (Hexavitamin) 1 tab PO DAILY [facility] Last Admin: 04/23/18 10:04 Dose: 1 tab Promethazine HCl/Dextromethorphan (Phenergan Dm Syrup) 5 ml PO Q6H PRN PRN Reason: Cough and congestion Rosuvastatin Calcium (Crestor) 5 mg PO HS [facility] Last Admin: 04/22/18 22:11 Dose: 5 mg Vitamin A (Vitamin A & D Oint Ud Foilpak) 0.5 ea TOP Q4 PRN PRN Reason: Dry mouth Last Admin: 04/21/18 10:27 Dose: 0.5 ea - Labs Labs: 04/23/18 05:55 04/23/18 05:55 PT 14.8 SECONDS (9.7-12.2) H 04/22/18 15:56 INR 1.4 04/22/18 15:56 APTT 61 SECONDS (21-34) H D 04/23/18 05:55
[2018-04-23] MEDS: Levothyroxine 100 mcg (0.1 mg) Inj IVP SCH (10:52)
[2018-04-23] MEDS ORDERED: Sodium Chloride 0.9% 500 ML IV ONE ×2 (11:00→12:40)
--- NOTE | 2018-04-23 11:43 | CP.CCUPN ---
<Gini Montano - Last Filed: 04/26/18 08:20> CCU Subjective - Physician Review Subjective (Free Text): Gini Montano DO, PGY-2: ICU Progress Note Patient was seen and examined at bedside. Patient is off of all sedation. She is not responsive. 2 units of PRBCS ordered. Febrile as well. 04/23/18 11:43 CCU Objective - Vital Signs / Intake & Output Vital Signs (Last 4 hours): Vital Signs Temp Pulse Resp BP Pulse Ox 04/23/18 11:06 94 H 20 96/58 L 96 04/23/18 11:00 95 H 21 100 04/23/18 10:51 99 H 21 96/63 L 100 04/23/18 10:36 105 H 17 84/57 L 96 04/23/18 10:34 109 H 23 78/45 L 89 L 04/23/18 10:33 110 H 24 76/48 L 91 L 04/23/18 10:17 117 H 25 H 80/54 L 89 L 04/23/18 10:16 116 H 24 82/43 L 79 L 04/23/18 10:12 116 H 24 63/46 L 04/23/18 10:00 115 H 20 95 04/23/18 09:46 114 H 20 83/54 L 100 04/23/18 09:11 111 H 17 82/50 L 98 04/23/18 09:00 110 H 17 98 04/23/18 08:11 114 H 14 107/81 100 04/23/18 08:00 99.9 F H 113 H 18 107/81 99 04/23/18 07:59 112 H 15 104/73 100 Intake and Output (Last 8hrs): Intake & Output 04/22/18 04/23/18 04/23/18 22:59 06:59 14:59 Intake Total 1245.1 331.2 121.7 Output Total 85 220 27 Balance 1160.1 111.2 94.7 Weight 72 lb 72 lb Intake: IV 10 Intake, IV Amount 1235.1 331.2 121.7 Left Forearm 200 Left Hand 7.8 31.2 11.7 Left Upper arm 19.5 Right Forearm 1007.8 300 110 Tube Feeding 0 Output: Urine 85 220 27 Urethral ([place]) 85 220 27 Other: # Bowel Movements 1 - Physical Exam Head: Positive for: Atraumatic, Normocephalic Pupils: Positive for: PERRL Extroacular Muscles: Positive for: EOMI Conjunctiva: Positive for: Normal Mouth: Positive for: Moist Mucous Membranes Neck: Positive for: Normal Range of Motion Respiratory/Chest: Positive for: Good Air Exchange, Decreased Breath Sounds Abdomen: Positive for: Normal Bowel Sounds Upper Extremity: Positive for: Other (limited movement left upper extremity) Lower Extremity: Positive for: Edema Skin: Positive for: Warm, Normal Color Psychiatric: Positive for: Alert, Oriented x 3 - Medications Active Medications: Active Medications Generic Name Dose Route Start Last Admin Trade Name Freq PRN Reason Stop Dose Admin Acetaminophen 650 mg 04/23/18 11:35 Tylenol 650mg/20.3ml Solution Ud PO Q4H PRN Temperature Fever >100.4 F Albuterol/Ipratropium 3 ml 04/19/18 20:00 04/23/18 07:30 Duoneb 3 Mg/0.5 Mg (3 Ml) Ud INH 3 ml RQ6 RODRIGO Administration Apixaban 2.5 mg 04/12/18 18:00 04/21/18 10:29 Eliquis PO Not Given BID RODRIGO Aspirin 81 mg 04/23/18 10:00 04/23/18 10:05 Aspirin Chewable PO 81 mg DAILY RODRIGO Administration Clopidogrel Bisulfate 75 mg 04/23/18 10:00 04/23/18 10:06 Plavix PO 75 mg DAILY RODRIGO Administration Diltiazem HCl 30 mg 04/13/18 14:00 04/23/18 10:51 Cardizem PO Not Given QID RODRIGO Famotidine 20 mg 04/23/18 10:00 04/23/18 10:30 Pepcid IVP 20 mg DAILY RODRIGO Administration Ferrous Sulfate 300 mg 04/19/18 19:00 04/22/18 10:54 Feosol Liq PO 300 mg TID RODRIGO Administration Fluconazole 100 mls @ 100 mls/hr 04/14/18 18:30 04/22/18 18:28 Diflucan Iv 200 Mg/100 Ml Ns IVPB 100 mls/hr Q24H RODRIGO Administration Protocol Vancomycin/Sodium Chloride 1 gm in 200 mls @ 133.333 mls/hr 04/22/18 22:00 04/22/18 22:26 Vancomycin 1 Gm/Ns 200 Ml IVPB 04/27/18 22:01 133.333 mls/hr Q12H RODRIGO Administration Protocol Propofol 1,000 mg in 100 mls @ 0.98 mls/hr 04/22/18 16:03 04/22/18 22:10 Diprivan IV 0 mcg/kg/min .Q24H PRN 0 mls/hr TITRATE PER MD ORDER Titration Protocol 5 MCG/KG/MIN Heparin Sodium/Sodium Chloride 25,000 units in 250 mls @ 3.919 mls/hr 04/22/18 16:17 04/22/18 16:42 Heparin 35900 Units/250ml 1/2 Normal Saline IV 12 units/kg/hr .Q24H PRN 3.919 mls/hr ADJUST RATE PER PROTOCOL Administration Protocol 12 UNITS/KG/HR Piperacillin Sod/Tazobactam 100 mls @ 100 mls/hr 04/23/18 08:00 04/23/18 08:4 8 Sod 2.25 gm/ Sodium Chloride IVPB 100 mls/hr Q8H RODRIGO Administration Protocol Insulin Aspart 0 unit 04/12/18 18:00 04/23/18 06:37 Novolog SC Not Given Q6H RODRIGO Protocol Levothyroxine Sodium 100 mcg 04/22/18 10:00 04/23/18 10:52 Synthroid IVP 100 mcg DAILY RODRIGO Administration Multivitamins 1 tab 04/18/18 10:00 04/23/18 10:04 Hexavitamin PO 1 tab DAILY RODRIGO Administration Promethazine HCl/Dextromethorphan 5 ml 04/23/18 09:37 Phenergan Dm Syrup PO Q6H PRN Cough and congestion Rosuvastatin Calcium 5 mg 04/10/18 22:00 04/22/18 22:11 Crestor PO 5 mg HS RODRIGO Administration Vitamin A 0.5 ea 04/10/18 14:21 04/21/18 10:27 Vitamin A & D Oint Ud Foilpak TOP 0.5 ea Q4 PRN Administration Dry mouth - Patient Studies Lab Studies: Lab Studies 04/23/18 04/23/18 04/23/18 Range/Units 08:50 05:55 05:55 WBC (4.8-10.8) K/uL RBC (3.80-5.20) Mil/uL Hgb (11.0-16.0) g/dL Hct (34.0-47.0) % MCV (81.0-99.0) fL MCH (27.0-31.0) pg MCHC (33.0-37.0) g/dL RDW (11.5-14.5) % Plt Count (130-400) K/uL MPV (7.2-11.7) fL Neut % (Auto) (50.0-75.0) % Lymph % (Auto) (20.0-40.0) % Vance % (Auto) (0.0-10.0) % Eos % (Auto) (0.0-4.0) % Baso % (Auto) (0.0-2.0) % Neut # (Auto) (1.8-7.0) K/uL Lymph # (Auto) (1.0-4.3) K/uL Vance # (Auto) (0.0-0.8) K/uL Eos # (Auto) (0.0-0.7) K/uL Baso # (Auto) (0.0-0.2) K/uL Neutrophils % (Manual) (50-75) % Band Neutrophils % (0-2) % Lymphocytes % (Manual) (20-40) % Monocytes % (Manual) (0-10) % Eosinophils % (Manual) (0-4) % Platelet Estimate (NORMAL) Polychromasia Hypochromasia (manual) Poikilocytosis (manual Anisocytosis (manual) PT (9.7-12.2) SECONDS INR APTT 61 H D (21-34) SECONDS Puncture Site pCO2 (35-45) mm/Hg pO2 (80-100) mm/Hg HCO3 (21-28) mmol/L ABG pH (7.35-7.45) ABG Total CO2 (22-28) mmol/L ABG O2 Saturation (95-98) % ABG Base Excess (-2.0-3.0) mmol/L ABG Hemoglobin (11.7-17.4) g/dL ABG Carboxyhemoglobin (0.5-1.5) % POC ABG HHb (Measured) (0.0-5.0) % ABG Methemoglobin (0.0-3.0) % Caesar Test ABG Potassium (3.6-5.2) mmol/L A-a O2 Difference mm/Hg Respiratory Index Hgb O2 Saturation (95.0-98.0) % Glucose (65-105) mg/dl Lactate (0.7-2.1) mmol/L Vent Mode Mechanical Rate FiO2 % Tidal Volume PEEP Sodium 146 (132-148) mmol/L Potassium 3.9 (3.6-5.2) mmol/L Chloride 116 H (98-107) mmol/L Carbon Dioxide 24 (22-30) mmol/L Anion Gap 10 (10-20) BUN 76 H (7-17) mg/dL Creatinine 2.0 H (0.7-1.2) mg/dL Est GFR ( Amer) 30 Est GFR (Non-Af Amer) 25 POC Glucose (mg/dL) (65-110) mg/dL Random Glucose 130 H D (65-105) mg/dL Calcium 9.0 (8.6-10.4) mg/dl Phosphorus 4.1 (2.5-4.5) mg/dL Magnesium 2.6 H (1.6-2.3) mg/dL Total Bilirubin 0.6 (0.2-1.3) mg/dL AST 471 H D (14-36) U/L ALT 427 H D (9-52) U/L Alkaline Phosphatase 108 (38-126) U/L Total Creatine Kinase 169 H (30-135) U/L CK-MB (Mass) 14.5 H (0.0-3.38) ng/mL Troponin I 17.0000 H* (0.00-0.120) ng/mL Total Protein 4.5 L (6.3-8.3) g/dL Albumin 2.2 L D (3.5-5.0) g/dL Globulin 2.3 (2.2-3.9) gm/dL Albumin/Globulin Ratio 1.0 (1.0-2.1) Procalcitonin (0.19-0.49) NG/ML Arterial Blood Potassium (3.6-5.2) mmol/L Urine Color (YELLOW) Urine Clarity (Clear) Urine pH (5.0-8.0) Ur Specific [place] (1.003-1.030) Urine Protein (NEGATIVE) mg/dL Urine Glucose (UA) (Normal) mg/dL Urine Ketones (NEGATIVE) mg/dL Urine Blood (NEGATIVE) Urine Nitrate (NEGATIVE) Urine Bilirubin (NEGATIVE) Urine Urobilinogen (0.2-1.0) mg/dL Ur Leukocyte Esterase (Negative) Haley/uL Urine WBC (Auto) (0-5) /hpf Urine RBC (Auto) (0-3) /hpf Urine Bacteria (<OCC) Hyaline Casts (0-2) /lpf Random Vancomycin 20.7 ug/mL Blood Type Antibody Screen 04/23/18 04/23/18 04/23/18 Range/Units 05:55 05:28 05:24 WBC 18.9 H (4.8-10.8) K/uL RBC 2.43 L (3.80-5.20) Mil/uL Hgb 7.4 L D (11.0-16.0) g/dL Hct 24.0 L (34.0-47.0) % MCV 98.8 (81.0-99.0) fL MCH 30.4 (27.0-31.0) pg MCHC 30.8 L (33.0-37.0) g/dL RDW 16.5 H (11.5-14.5) % Plt Count 187 (130-400) K/uL MPV 10.9 (7.2-11.7) fL Neut % (Auto) 92.7 H (50.0-75.0) % Lymph % (Auto) 2.8 L (20.0-40.0) % Vance % (Auto) 2.3 (0.0-10.0) % Eos % (Auto) 1.0 (0.0-4.0) % Baso % (Auto) 1.2 (0.0-2.0) % Neut # (Auto) 17.5 H (1.8-7.0) K/uL Lymph # (Auto) 0.5 L (1.0-4.3) K/uL Vance # (Auto) 0.4 (0.0-0.8) K/uL Eos # (Auto) 0.2 (0.0-0.7) K/uL Baso # (Auto) 0.2 (0.0-0.2) K/uL Neutrophils % (Manual) 86 H (50-75) % Band Neutrophils % 8 H (0-2) % Lymphocytes % (Manual) 4 L (20-40) % Monocytes % (Manual) 1 (0-10) % Eosinophils % (Manual) 1 (0-4) % Platelet Estimate Normal (NORMAL) Polychromasia Slight Hypochromasia (manual) Slight Poikilocytosis (manual Anisocytosis (manual) Slight PT (9.7-12.2) SECONDS INR APTT (21-34) SECONDS Puncture Site R brac pCO2 28 L (35-45) mm/Hg pO2 180 H (80-100) mm/Hg HCO3 25.2 (21-28) mmol/L ABG pH 7.52 H (7.35-7.45) ABG Total CO2 23.8 (22-28) mmol/L ABG O2 Saturation 99.9 H (95-98) % ABG Base Excess 0.3 (-2.0-3.0) mmol/L ABG Hemoglobin 7.6 L (11.7-17.4) g/dL ABG Carboxyhemoglobin 1.6 H (0.5-1.5) % POC ABG HHb (Measured) 0.1 (0.0-5.0) % ABG Methemoglobin 0.2 (0.0-3.0) % Caesar Test Na ABG Potassium (3.6-5.2) mmol/L A-a O2 Difference 142.0 mm/Hg Respiratory Index 0.8 Hgb O2 Saturation 98.0 (95.0-98.0) % Glucose (65-105) mg/dl Lactate (0.7-2.1) mmol/L Vent Mode Prvc Mechanical Rate 14 FiO2 50.0 % Tidal Volume 350 PEEP 5 Sodium (132-148) mmol/L Potassium (3.6-5.2) mmol/L Chloride (98-107) mmol/L Carbon Dioxide (22-30) mmol/L Anion Gap (10-20) BUN (7-17) mg/dL Creatinine (0.7-1.2) mg/dL Est GFR ( Amer) Est GFR (Non-Af Amer) POC Glucose (mg/dL) 147 H (65-110) mg/dL Random Glucose (65-105) mg/dL Calcium (8.6-10.4) mg/dl Phosphorus (2.5-4.5) mg/dL Magnesium (1.6-2.3) mg/dL Total Bilirubin (0.2-1.3) mg/dL AST (14-36) U/L ALT (9-52) U/L Alkaline Phosphatase (38-126) U/L Total Creatine Kinase (30-135) U/L CK-MB (Mass) (0.0-3.38) ng/mL Troponin I (0.00-0.120) ng/mL Total Protein (6.3-8.3) g/dL Albumin (3.5-5.0) g/dL Globulin (2.2-3.9) gm/dL Albumin/Globulin Ratio (1.0-2.1) Procalcitonin (0.19-0.49) NG/ML Arterial Blood Potassium (3.6-5.2) mmol/L Urine Color (YELLOW) Urine Clarity (Clear) Urine pH (5.0-8.0) Ur Specific [place] (1.003-1.030) Urine Protein (NEGATIVE) mg/dL Urine Glucose (UA) (Normal) mg/dL Urine Ketones (NEGATIVE) mg/dL Urine Blood (NEGATIVE) Urine Nitrate (NEGATIVE) Urine Bilirubin (NEGATIVE) Urine Urobilinogen (0.2-1.0) mg/dL Ur Leukocyte Esterase (Negative) Haley/uL Urine WBC (Auto) (0-5) /hpf Urine RBC (Auto) (0-3) /hpf Urine Bacteria (<OCC) Hyaline Casts (0-2) /lpf Random Vancomycin ug/mL Blood Type Antibody Screen 04/22/18 04/22/18 04/22/18 Range/Units 23:57 23:01 23:01 WBC (4.8-10.8) K/uL RBC (3.80-5.20) Mil/uL Hgb (11.0-16.0) g/dL Hct (34.0-47.0) % MCV (81.0-99.0) fL MCH (27.0-31.0) pg MCHC (33.0-37.0) g/dL RDW (11.5-14.5) % Plt Count (130-400) K/uL MPV (7.2-11.7) fL Neut % (Auto) (50.0-75.0) % Lymph % (Auto) (20.0-40.0) % Vance % (Auto) (0.0-10.0) % Eos % (Auto) (0.0-4.0) % Baso % (Auto) (0.0-2.0) % Neut # (Auto) (1.8-7.0) K/uL Lymph # (Auto) (1.0-4.3) K/uL [place]ance # (Auto) (0.0-0.8) K/uL Eos # (Auto) (0.0-0.7) K/uL Baso # (Auto) (0.0-0.2) K/uL Neutrophils % (Manual) (50-75) % Band Neutrophils % (0-2) % Lymphocytes % (Manual) (20-40) % Monocytes % (Manual) (0-10) % Eosinophils % (Manual) (0-4) % Platelet Estimate (NORMAL) Polychromasia Hypochromasia (manual) Poikilocytosis (manual Anisocytosis (manual) PT (9.7-12.2) SECONDS INR APTT 67 H D (21-34) SECONDS Puncture Site pCO2 (35-45) mm/Hg pO2 (80-100) mm/Hg HCO3 (21-28) mmol/L ABG pH (7.35-7.45) ABG Total CO2 (22-28) mmol/L ABG O2 Saturation (95-98) % ABG Base Excess (-2.0-3.0) mmol/L ABG Hemoglobin (11.7-17.4) g/dL ABG Carboxyhemoglobin (0.5-1.5) % POC ABG HHb (Measured) (0.0-5.0) % ABG Methemoglobin (0.0-3.0) % Caesar Test ABG Potassium (3.6-5.2) mmol/L A-a O2 Difference mm/Hg Respiratory Index Hgb O2 Saturation (95.0-98.0) % Glucose (65-105) mg/dl Lactate (0.7-2.1) mmol/L Vent Mode Mechanical Rate FiO2 % Tidal Volume PEEP Sodium (132-148) mmol/L Potassium (3.6-5.2) mmol/L Chloride (98-107) mmol/L Carbon Dioxide (22-30) mmol/L Anion Gap (10-20) BUN (7-17) mg/dL Creatinine (0.7-1.2) mg/dL Est GFR ( Amer) Est GFR (Non-Af Amer) POC Glucose (mg/dL) 106 (65-110) mg/dL Random Glucose (65-105) mg/dL Calcium (8.6-10.4) mg/dl Phosphorus (2.5-4.5) mg/dL Magnesium (1.6-2.3) mg/dL Total Bilirubin (0.2-1.3) mg/dL AST (14-36) U/L ALT (9-52) U/L Alkaline Phosphatase (38-126) U/L Total Creatine Kinase 273 H (30-135) U/L CK-MB (Mass) 12.2 H (0.0-3.38) ng/mL Troponin I 7.7400 H* (0.00-0.120) ng/mL Total Protein (6.3-8.3) g/dL Albumin (3.5-5.0) g/dL Globulin (2.2-3.9) gm/dL Albumin/Globulin Ratio (1.0-2.1) Procalcitonin (0.19-0.49) NG/ML Arterial Blood Potassium (3.6-5.2) mmol/L Urine Color (YELLOW) Urine Clarity (Clear) Urine pH (5.0-8.0) Ur Specific [place] (1.003-1.030) Urine Protein (NEGATIVE) mg/dL Urine Glucose (UA) (Normal) mg/dL Urine Ketones (NEGATIVE) mg/dL Urine Blood (NEGATIVE) Urine Nitrate (NEGATIVE) Urine Bilirubin (NEGATIVE) Urine Urobilinogen (0.2-1.0) mg/dL Ur Leukocyte Esterase (Negative) Haley/uL Urine WBC (Auto) (0-5) /hpf Urine RBC (Auto) (0-3) /hpf Urine Bacteria (<OCC) Hyaline Casts (0-2) /lpf Random Vancomycin ug/mL Blood Type Antibody Screen 04/22/18 04/22/18 04/22/18 Range/Units 17:53 16:31 15:56 WBC (4.8-10.8) K/uL RBC (3.80-5.20) Mil/uL Hgb (11.0-16.0) g/dL Hct (34.0-47.0) % MCV (81.0-99.0) fL MCH (27.0-31.0) pg MCHC (33.0-37.0) g/dL RDW (11.5-14.5) % Plt Count (130-400) K/uL MPV (7.2-11.7) fL Neut % (Auto) (50.0-75.0) % Lymph % (Auto) (20.0-40.0) % Vance % (Auto) (0.0-10.0) % Eos % (Auto) (0.0-4.0) % Baso % (Auto) (0.0-2.0) % Neut # (Auto) (1.8-7.0) K/uL Lymph # (Auto) (1.0-4.3) K/uL [place]ance # (Auto) (0.0-0.8) K/uL Eos # (Auto) (0.0-0.7) K/uL Baso # (Auto) (0.0-0.2) K/uL Neutrophils % (Manual) (50-75) % Band Neutrophils % (0-2) % Lymphocytes % (Manual) (20-40) % Monocytes % (Manual) (0-10) % Eosinophils % (Manual) (0-4) % Platelet Estimate (NORMAL) Polychromasia Hypochromasia (manual) Poikilocytosis (manual Anisocytosis (manual) PT (9.7-12.2) SECONDS INR APTT (21-34) SECONDS Puncture Site Rra pCO2 40 (35-45) mm/Hg pO2 365 H (80-100) mm/Hg HCO3 31.4 H (21-28) mmol/L ABG pH 7.51 H (7.35-7.45) ABG Total CO2 33.1 H (22-28) mmol/L ABG O2 Saturation 100.0 H (95-98) % ABG Base Excess 8.2 H (-2.0-3.0) mmol/L ABG Hemoglobin (11.7-17.4) g/dL ABG Carboxyhemoglobin (0.5-1.5) % POC ABG HHb (Measured) (0.0-5.0) % ABG Methemoglobin (0.0-3.0) % Caesar Test Na ABG Potassium 4.1 (3.6-5.2) mmol/L A-a O2 Difference 298.0 mm/Hg Respiratory Index 0.8 Hgb O2 Saturation (95.0-98.0) % Glucose 167 H (65-105) mg/dl Lactate 1.9 (0.7-2.1) mmol/L Vent Mode Prvc Mechanical Rate 14 FiO2 100.0 % Tidal Volume 350 PEEP 5 Sodium 150.0 H (132-148) mmol/L Potassium (3.6-5.2) mmol/L Chloride 118.0 H (98-107) mmol/L Carbon Dioxide (22-30) mmol/L Anion Gap (10-20) BUN (7-17) mg/dL Creatinine (0.7-1.2) mg/dL Est GFR ( Amer) Est GFR (Non-Af Amer) POC Glucose (mg/dL) 167 H (65-110) mg/dL Random Glucose (65-105) mg/dL Calcium (8.6-10.4) mg/dl Phosphorus (2.5-4.5) mg/dL Magnesium (1.6-2.3) mg/dL Total Bilirubin (0.2-1.3) mg/dL AST (14-36) U/L ALT (9-52) U/L Alkaline Phosphatase (38-126) U/L Total Creatine Kinase (30-135) U/L CK-MB (Mass) (0.0-3.38) ng/mL Troponin I (0.00-0.120) ng/mL Total Protein (6.3-8.3) g/dL Albumin (3.5-5.0) g/dL Globulin (2.2-3.9) gm/dL Albumin/Globulin Ratio (1.0-2.1) Procalcitonin (0.19-0.49) NG/ML Arterial Blood Potassium 4.1 (3.6-5.2) mmol/L Urine Color Yellow (YELLOW) Urine Clarity Hazy (Clear) Urine pH 6.0 (5.0-8.0) Ur Specific [place] 1.016 (1.003-1.030) Urine Protein 1+ H (NEGATIVE) mg/dL Urine Glucose (UA) Normal (Normal) mg/dL Urine Ketones Negative (NEGATIVE) mg/dL Urine Blood Small (NEGATIVE) Urine Nitrate Negative (NEGATIVE) Urine Bilirubin Negative (NEGATIVE) Urine Urobilinogen 2.0 H (0.2-1.0) mg/dL Ur Leukocyte Esterase Neg (Negative) Haley/uL Urine WBC (Auto) 3 (0-5) /hpf Urine RBC (Auto) 14 H (0-3) /hpf Urine Bacteria Few H (<OCC) Hyaline Casts 0-2 (0-2) /lpf Random Vancomycin ug/mL Blood Type Antibody Screen 04/22/18 04/22/18 04/22/18 Range/Units 15:56 15:56 15:36 WBC (4.8-10.8) K/uL RBC (3.80-5.20) Mil/uL Hgb (11.0-16.0) g/dL Hct (34.0-47.0) % MCV (81.0-99.0) fL MCH (27.0-31.0) pg MCHC (33.0-37.0) g/dL RDW (11.5-14.5) % Plt Count (130-400) K/uL MPV (7.2-11.7) fL Neut % (Auto) (50.0-75.0) % Lymph % (Auto) (20.0-40.0) % Vance % (Auto) (0.0-10.0) % Eos % (Auto) (0.0-4.0) % Baso % (Auto) (0.0-2.0) % Neut # (Auto) (1.8-7.0) K/uL Lymph # (Auto) (1.0-4.3) K/uL [place]ance # (Auto) (0.0-0.8) K/uL Eos # (Auto) (0.0-0.7) K/uL Baso # (Auto) (0.0-0.2) K/uL Neutrophils % (Manual) (50-75) % Band Neutrophils % (0-2) % Lymphocytes % (Manual) (20-40) % Monocytes % (Manual) (0-10) % Eosinophils % (Manual) (0-4) % Platelet Estimate (NORMAL) Polychromasia Hypochromasia (manual) Poikilocytosis (manual Anisocytosis (manual) PT 14.8 H (9.7-12.2) SECONDS INR 1.4 APTT 38 H (21-34) SECONDS Puncture Site pCO2 (35-45) mm/Hg pO2 (80-100) mm/Hg HCO3 (21-28) mmol/L ABG pH (7.35-7.45) ABG Total CO2 (22-28) mmol/L ABG O2 Saturation (95-98) % ABG Base Excess (-2.0-3.0) mmol/L ABG Hemoglobin (11.7-17.4) g/dL ABG Carboxyhemoglobin (0.5-1.5) % POC ABG HHb (Measured) (0.0-5.0) % ABG Methemoglobin (0.0-3.0) % Caesar Test ABG Potassium (3.6-5.2) mmol/L A-a O2 Difference mm/Hg Respiratory Index Hgb O2 Saturation (95.0-98.0) % Glucose (65-105) mg/dl Lactate (0.7-2.1) mmol/L Vent Mode Mechanical Rate FiO2 % Tidal Volume PEEP Sodium (132-148) mmol/L Potassium (3.6-5.2) mmol/L Chloride (98-107) mmol/L Carbon Dioxide (22-30) mmol/L Anion Gap (10-20) BUN (7-17) mg/dL Creatinine (0.7-1.2) mg/dL Est GFR ( Amer) Est GFR (Non-Af Amer) POC Glucose (mg/dL) (65-110) mg/dL Random Glucose (65-105) mg/dL Calcium (8.6-10.4) mg/dl Phosphorus (2.5-4.5) mg/dL Magnesium (1.6-2.3) mg/dL Total Bilirubin (0.2-1.3) mg/dL AST (14-36) U/L ALT (9-52) U/L Alkaline Phosphatase (38-126) U/L Total Creatine Kinase (30-135) U/L CK-MB (Mass) (0.0-3.38) ng/mL Troponin I (0.00-0.120) ng/mL Total Protein (6.3-8.3) g/dL Albumin (3.5-5.0) g/dL Globulin (2.2-3.9) gm/dL Albumin/Globulin Ratio (1.0-2.1) Procalcitonin 0.35 (0.19-0.49) NG/ML Arterial Blood Potassium (3.6-5.2) mmol/L Urine Color (YELLOW) Urine Clarity (Clear) Urine pH (5.0-8.0) Ur Specific [place] (1.003-1.030) Urine Protein (NEGATIVE) mg/dL Urine Glucose (UA) (Normal) mg/dL Urine Ketones (NEGATIVE) mg/dL Urine Blood (NEGATIVE) Urine Nitrate (NEGATIVE) Urine Bilirubin (NEGATIVE) Urine Urobilinogen (0.2-1.0) mg/dL Ur Leukocyte Esterase (Negative) Haley/uL Urine WBC (Auto) (0-5) /hpf Urine RBC (Auto) (0-3) /hpf Urine Bacteria (<OCC) Hyaline Casts (0-2) /lpf Random Vancomycin ug/mL Blood Type O POSITIVE Antibody Screen Negative 04/22/18 04/22/18 04/22/18 Range/Units 15:36 15:36 14:37 WBC 16.7 H (4.8-10.8) K/uL RBC 3.03 L (3.80-5.20) Mil/uL Hgb 9.6 L (11.0-16.0) g/dL Hct 29.9 L (34.0-47.0) % MCV 98.7 (81.0-99.0) fL MCH 31.9 H (27.0-31.0) pg MCHC 32.3 L (33.0-37.0) g/dL RDW 16.0 H (11.5-14.5) % Plt Count 281 (130-400) K/uL MPV 9.8 (7.2-11.7) fL Neut % (Auto) 93.2 H (50.0-75.0) % Lymph % (Auto) 1.4 L (20.0-40.0) % [place] % (Auto) 4.8 (0.0-10.0) % Eos % (Auto) 0.2 (0.0-4.0) % Baso % (Auto) 0.4 (0.0-2.0) % Neut # (Auto) 15.6 H (1.8-7.0) K/uL Lymph # (Auto) 0.2 L (1.0-4.3) K/uL [place]ance # (Auto) 0.8 (0.0-0.8) K/uL Eos # (Auto) 0.0 (0.0-0.7) K/uL Baso # (Auto) 0.1 (0.0-0.2) K/uL Neutrophils % (Manual) 82 H (50-75) % Band Neutrophils % 9 H (0-2) % Lymphocytes % (Manual) 4 L (20-40) % Monocytes % (Manual) 4 (0-10) % Eosinophils % (Manual) 1 (0-4) % Platelet Estimate Normal (NORMAL) Polychromasia Hypochromasia (manual) Poikilocytosis (manual Slight Anisocytosis (manual) Slight PT (9.7-12.2) SECONDS INR APTT (21-34) SECONDS Puncture Site pCO2 (35-45) mm/Hg pO2 (80-100) mm/Hg HCO3 (21-28) mmol/L ABG pH (7.35-7.45) ABG Total CO2 (22-28) mmol/L ABG O2 Saturation (95-98) % ABG Base Excess (-2.0-3.0) mmol/L ABG Hemoglobin (11.7-17.4) g/dL ABG Carboxyhemoglobin (0.5-1.5) % POC ABG HHb (Measured) (0.0-5.0) % ABG Methemoglobin (0.0-3.0) % Caesar Test ABG Potassium (3.6-5.2) mmol/L A-a O2 Difference mm/Hg Respiratory Index Hgb O2 Saturation (95.0-98.0) % Glucose (65-105) mg/dl Lactate (0.7-2.1) mmol/L Vent Mode Mechanical Rate FiO2 % Tidal Volume PEEP Sodium 146 (132-148) mmol/L Potassium 4.4 (3.6-5.2) mmol/L Chloride 111 H (98-107) mmol/L Carbon Dioxide 32 H (22-30) mmol/L Anion Gap 8 L (10-20) BUN 57 H (7-17) mg/dL Creatinine 1.2 (0.7-1.2) mg/dL Est GFR ( Amer) 54 Est GFR (Non-Af Amer) 45 POC Glucose (mg/dL) 257 H (65-110) mg/dL Random Glucose 211 H D (65-105) mg/dL Calcium 10.2 (8.6-10.4) mg/dl Phosphorus 5.1 H (2.5-4.5) mg/dL Magnesium 2.6 H (1.6-2.3) mg/dL Total Bilirubin 0.9 (0.2-1.3) mg/dL AST 60 H D (14-36) U/L ALT 47 (9-52) U/L Alkaline Phosphatase 143 H (38-126) U/L Total Creatine Kinase (30-135) U/L CK-MB (Mass) (0.0-3.38) ng/mL Troponin I 3.4400 H* (0.00-0.120) ng/mL Total Protein 5.9 L (6.3-8.3) g/dL Albumin 3.2 L (3.5-5.0) g/dL Globulin 2.7 (2.2-3.9) gm/dL Albumin/Globulin Ratio 1.1 (1.0-2.1) Procalcitonin (0.19-0.49) NG/ML Arterial Blood Potassium (3.6-5.2) mmol/L Urine Color (YELLOW) Urine Clarity (Clear) Urine pH (5.0-8.0) Ur Specific [place] (1.003-1.030) Urine Protein (NEGATIVE) mg/dL Urine Glucose (UA) (Normal) mg/dL Urine Ketones (NEGATIVE) mg/dL Urine Blood (NEGATIVE) Urine Nitrate (NEGATIVE) Urine Bilirubin (NEGATIVE) Urine Urobilinogen (0.2-1.0) mg/dL Ur Leukocyte Esterase (Negative) Haley/uL Urine WBC (Auto) (0-5) /hpf Urine RBC (Auto) (0-3) /hpf Urine Bacteria (<OCC) Hyaline Casts (0-2) /lpf Random Vancomycin ug/mL Blood Type Antibody Screen 04/22/18 04/22/18 04/21/18 Range/Units 11:39 06:19 23:59 WBC (4.8-10.8) K/uL RBC (3.80-5.20) Mil/uL Hgb (11.0-16.0) g/dL Hct (34.0-47.0) % MCV (81.0-99.0) fL MCH (27.0-31.0) pg MCHC (33.0-37.0) g/dL RDW (11.5-14.5) % Plt Count (130-400) K/uL MPV (7.2-11.7) fL Neut % (Auto) (50.0-75.0) % Lymph % (Auto) (20.0-40.0) % Vance % (Auto) (0.0-10.0) % Eos % (Auto) (0.0-4.0) % Baso % (Auto) (0.0-2.0) % Neut # (Auto) (1.8-7.0) K/uL Lymph # (Auto) (1.0-4.3) K/uL [place] # (Auto) (0.0-0.8) K/uL Eos # (Auto) (0.0-0.7) K/uL Baso # (Auto) (0.0-0.2) K/uL Neutrophils % (Manual) (50-75) % Band Neutrophils % (0-2) % Lymphocytes % (Manual) (20-40) % Monocytes % (Manual) (0-10) % Eosinophils % (Manual) (0-4) % Platelet Estimate (NORMAL) Polychromasia Hypochromasia (manual) Poikilocytosis (manual Anisocytosis (manual) PT (9.7-12.2) SECONDS INR APTT (21-34) SECONDS Puncture Site pCO2 (35-45) mm/Hg pO2 (80-100) mm/Hg HCO3 (21-28) mmol/L ABG pH (7.35-7.45) ABG Total CO2 (22-28) mmol/L ABG O2 Saturation (95-98) % ABG Base Excess (-2.0-3.0) mmol/L ABG Hemoglobin (11.7-17.4) g/dL ABG Carboxyhemoglobin (0.5-1.5) % POC ABG HHb (Measured) (0.0-5.0) % ABG Methemoglobin (0.0-3.0) % Caesar Test ABG Potassium (3.6-5.2) mmol/L A-a O2 Difference mm/Hg Respiratory Index Hgb O2 Saturation (95.0-98.0) % Glucose (65-105) mg/dl Lactate (0.7-2.1) mmol/L Vent Mode Mechanical Rate FiO2 % Tidal Volume PEEP Sodium (132-148) mmol/L Potassium (3.6-5.2) mmol/L Chloride (98-107) mmol/L Carbon Dioxide (22-30) mmol/L Anion Gap (10-20) BUN (7-17) mg/dL Creatinine (0.7-1.2) mg/dL Est GFR ( Amer) Est GFR (Non-Af Amer) POC Glucose (mg/dL) 181 H 145 H 184 H (65-110) mg/dL Random Glucose (65-105) mg/dL Calcium (8.6-10.4) mg/dl Phosphorus (2.5-4.5) mg/dL Magnesium (1.6-2.3) mg/dL Total Bilirubin (0.2-1.3) mg/dL AST (14-36) U/L ALT (9-52) U/L Alkaline Phosphatase (38-126) U/L Total Creatine Kinase (30-135) U/L CK-MB (Mass) (0.0-3.38) ng/mL Troponin I (0.00-0.120) ng/mL Total Protein (6.3-8.3) g/dL Albumin (3.5-5.0) g/dL Globulin (2.2-3.9) gm/dL Albumin/Globulin Ratio (1.0-2.1) Procalcitonin (0.19-0.49) NG/ML Arterial Blood Potassium (3.6-5.2) mmol/L Urine Color (YELLOW) Urine Clarity (Clear) Urine pH (5.0-8.0) Ur Specific [place] (1.003-1.030) Urine Protein (NEGATIVE) mg/dL Urine Glucose (UA) (Normal) mg/dL Urine Ketones (NEGATIVE) mg/dL Urine Blood (NEGATIVE) Urine Nitrate (NEGATIVE) Urine Bilirubin (NEGATIVE) Urine Urobilinogen (0.2-1.0) mg/dL Ur Leukocyte Esterase (Negative) Haley/uL Urine WBC (Auto) (0-5) /hpf Urine RBC (Auto) (0-3) /hpf Urine Bacteria (<OCC) Hyaline Casts (0-2) /lpf Random Vancomycin ug/mL Blood Type Antibody Screen 04/21/18 Range/Units 16:30 WBC (4.8-10.8) K/uL RBC (3.80-5.20) Mil/uL Hgb (11.0-16.0) g/dL Hct (34.0-47.0) % MCV (81.0-99.0) fL MCH (27.0-31.0) pg MCHC (33.0-37.0) g/dL RDW (11.5-14.5) % Plt Count (130-400) K/uL MPV (7.2-11.7) fL Neut % (Auto) (50.0-75.0) % Lymph % (Auto) (20.0-40.0) % Vance % (Auto) (0.0-10.0) % Eos % (Auto) (0.0-4.0) % Baso % (Auto) (0.0-2.0) % Neut # (Auto) (1.8-7.0) K/uL Lymph # (Auto) (1.0-4.3) K/uL Vance # (Auto) (0.0-0.8) K/uL Eos # (Auto) (0.0-0.7) K/uL Baso # (Auto) (0.0-0.2) K/uL Neutrophils % (Manual) (50-75) % Band Neutrophils % (0-2) % Lymphocytes % (Manual) (20-40) % Monocytes % (Manual) (0-10) % Eosinophils % (Manual) (0-4) % Platelet Estimate (NORMAL) Polychromasia Hypochromasia (manual) Poikilocytosis (manual Anisocytosis (manual) PT (9.7-12.2) SECONDS INR APTT (21-34) SECONDS Puncture Site pCO2 (35-45) mm/Hg pO2 (80-100) mm/Hg HCO3 (21-28) mmol/L ABG pH (7.35-7.45) ABG Total CO2 (22-28) mmol/L ABG O2 Saturation (95-98) % ABG Base Excess (-2.0-3.0) mmol/L ABG Hemoglobin (11.7-17.4) g/dL ABG Carboxyhemoglobin (0.5-1.5) % POC ABG HHb (Measured) (0.0-5.0) % ABG Methemoglobin (0.0-3.0) % Caesar Test ABG Potassium (3.6-5.2) mmol/L A-a O2 Difference mm/Hg Respiratory Index Hgb O2 Saturation (95.0-98.0) % Glucose (65-105) mg/dl Lactate (0.7-2.1) mmol/L Vent Mode Mechanical Rate FiO2 % Tidal Volume PEEP Sodium (132-148) mmol/L Potassium (3.6-5.2) mmol/L Chloride (98-107) mmol/L Carbon Dioxide (22-30) mmol/L Anion Gap (10-20) BUN (7-17) mg/dL Creatinine (0.7-1.2) mg/dL Est GFR ( Amer) Est GFR (Non-Af Amer) POC Glucose (mg/dL) 169 H (65-110) mg/dL Random Glucose (65-105) mg/dL Calcium (8.6-10.4) mg/dl Phosphorus (2.5-4.5) mg/dL Magnesium (1.6-2.3) mg/dL Total Bilirubin (0.2-1.3) mg/dL AST (14-36) U/L ALT (9-52) U/L Alkaline Phosphatase (38-126) U/L Total Creatine Kinase (30-135) U/L CK-MB (Mass) (0.0-3.38) ng/mL Troponin I (0.00-0.120) ng/mL Total Protein (6.3-8.3) g/dL Albumin (3.5-5.0) g/dL Globulin (2.2-3.9) gm/dL Albumin/Globulin Ratio (1.0-2.1) Procalcitonin (0.19-0.49) NG/ML Arterial Blood Potassium (3.6-5.2) mmol/L Urine Color (YELLOW) Urine Clarity (Clear) Urine pH (5.0-8.0) Ur Specific [place] (1.003-1.030) Urine Protein (NEGATIVE) mg/dL Urine Glucose (UA) (Normal) mg/dL Urine Ketones (NEGATIVE) mg/dL Urine Blood (NEGATIVE) Urine Nitrate (NEGATIVE) Urine Bilirubin (NEGATIVE) Urine Urobilinogen (0.2-1.0) mg/dL Ur Leukocyte Esterase (Negative) Haley/uL Urine WBC (Auto) (0-5) /hpf Urine RBC (Auto) (0-3) /hpf Urine Bacteria (<OCC) Hyaline Casts (0-2) /lpf Random Vancomycin ug/mL Blood Type Antibody Screen Laboratory Results - last 24 hr 04/21/18 04/21/18 04/22/18 16:30 23:59 06:19 WBC RBC Hgb Hct MCV MCH MCHC RDW Plt Count MPV Neut % (Auto) Lymph % (Auto) Vance % (Auto) Eos % (Auto) Baso % (Auto) Neut # (Auto) Lymph # (Auto) Vance # (Auto) Eos # (Auto) Baso # (Auto) Neutrophils % (Manual) Band Neutrophils % Lymphocytes % (Manual) Monocytes % (Manual) Eosinophils % (Manual) Platelet Estimate Polychromasia Hypochromasia (manual) Poikilocytosis (manual Anisocytosis (manual) PT INR APTT Puncture Site pCO2 pO2 HCO3 ABG pH ABG Total CO2 ABG O2 Saturation ABG Base Excess ABG Hemoglobin ABG Carboxyhemoglobin POC ABG HHb (Measured) ABG Methemoglobin Caesar Test ABG Potassium A-a O2 Difference Respiratory Index Hgb O2 Saturation Glucose Lactate Vent Mode Mechanical Rate FiO2 Tidal Volume PEEP Sodium Potassium Chloride Carbon Dioxide Anion Gap BUN Creatinine Est GFR ( Amer) Est GFR (Non-Af Amer) POC Glucose (mg/dL) 169 H 184 H 145 H Random Glucose Calcium Phosphorus Magnesium Total Bilirubin AST ALT Alkaline Phosphatase Total Creatine Kinase CK-MB (Mass) Troponin I Total Protein Albumin Globulin Albumin/Globulin Ratio Procalcitonin Arterial Blood Potassium Urine Color Urine Clarity Urine pH Ur Specific [place] Urine Protein Urine Glucose (UA) Urine Ketones Urine Blood Urine Nitrate Urine Bilirubin Urine Urobilinogen Ur Leukocyte Esterase Urine WBC (Auto) Urine RBC (Auto) Urine Bacteria Hyaline Casts Random Vancomycin Blood Type Antibody Screen 04/22/18 04/22/18 04/22/18 11:39 14:37 15:36 WBC 16.7 H RBC 3.03 L Hgb 9.6 L Hct 29.9 L MCV 98.7 MCH 31.9 H MCHC 32.3 L RDW 16.0 H Plt Count 281 MPV 9.8 Neut % (Auto) 93.2 H Lymph % (Auto) 1.4 L Vance % (Auto) 4.8 Eos % (Auto) 0.2 Baso % (Auto) 0.4 Neut # (Auto) 15.6 H Lymph # (Auto) 0.2 L Vance # (Auto) 0.8 Eos # (Auto) 0.0 Baso # (Auto) 0.1 Neutrophils % (Manual) 82 H Band Neutrophils % 9 H Lymphocytes % (Manual) 4 L Monocytes % (Manual) 4 Eosinophils % (Manual) 1 Platelet Estimate Normal Polychromasia Hypochromasia (manual) Poikilocytosis (manual Slight Anisocytosis (manual) Slight PT INR APTT Puncture Site pCO2 pO2 HCO3 ABG pH ABG Total CO2 ABG O2 Saturation ABG Base Excess ABG Hemoglobin ABG Carboxyhemoglobin POC ABG HHb (Measured) ABG Methemoglobin Caesar Test ABG Potassium A-a O2 Difference Respiratory Index Hgb O2 Saturation Glucose Lactate Vent Mode Mechanical Rate FiO2 Tidal Volume PEEP Sodium Potassium Chloride Carbon Dioxide Anion Gap BUN Creatinine Est GFR ( Amer) Est GFR (Non-Af Amer) POC Glucose (mg/dL) 181 H 257 H Random Glucose Calcium Phosphorus Magnesium Total Bilirubin AST ALT Alkaline Phosphatase Total Creatine Kinase CK-MB (Mass) Troponin I Total Protein Albumin Globulin Albumin/Globulin Ratio Procalcitonin Arterial Blood Potassium Urine Color Urine Clarity Urine pH Ur Specific [place] Urine Protein Urine Glucose (UA) Urine Ketones Urine Blood Urine Nitrate Urine Bilirubin Urine Urobilinogen Ur Leukocyte Esterase Urine WBC (Auto) Urine RBC (Auto) Urine Bacteria Hyaline Casts Random Vancomycin Blood Type Antibody Screen 04/22/18 04/22/18 04/22/18 15:36 15:36 15:56 WBC RBC Hgb Hct MCV MCH MCHC RDW Plt Count MPV Neut % (Auto) Lymph % (Auto) Vance % (Auto) Eos % (Auto) Baso % (Auto) Neut # (Auto) Lymph # (Auto) Vance # (Auto) Eos # (Auto) Baso # (Auto) Neutrophils % (Manual) Band Neutrophils % Lymphocytes % (Manual) Monocytes % (Manual) Eosinophils % (Manual) Platelet Estimate Polychromasia Hypochromasia (manual) Poikilocytosis (manual Anisocytosis (manual) PT 14.8 H INR 1.4 APTT 38 H Puncture Site pCO2 pO2 HCO3 ABG pH ABG Total CO2 ABG O2 Saturation ABG Base Excess ABG Hemoglobin ABG Carboxyhemoglobin POC ABG HHb (Measured) ABG Methemoglobin Caesar Test ABG Potassium A-a O2 Difference Respiratory Index Hgb O2 Saturation Glucose Lactate Vent Mode Mechanical Rate FiO2 Tidal Volume PEEP Sodium 146 Potassium 4.4 Chloride 111 H Carbon Dioxide 32 H Anion Gap 8 L BUN 57 H Creatinine 1.2 Est GFR ( Amer) 54 Est GFR (Non-Af Amer) 45 POC Glucose (mg/dL) Random Glucose 211 H D Calcium 10.2 Phosphorus 5.1 H Magnesium 2.6 H Total Bilirubin 0.9 AST 60 H D ALT 47 Alkaline Phosphatase 143 H Total Creatine Kinase CK-MB (Mass) Troponin I 3.4400 H* Total Protein 5.9 L Albumin 3.2 L Globulin 2.7 Albumin/Globulin Ratio 1.1 Procalcitonin 0.35 Arterial Blood Potassium Urine Color Urine Clarity Urine pH Ur Specific [place] Urine Protein Urine Glucose (UA) Urine Ketones Urine Blood Urine Nitrate Urine Bilirubin Urine Urobilinogen Ur Leukocyte Esterase Urine WBC (Auto) Urine RBC (Auto) Urine Bacteria Hyaline Casts Random Vancomycin Blood Type Antibody Screen 04/22/18 04/22/18 04/22/18 15:56 15:56 16:31 WBC RBC Hgb Hct MCV MCH MCHC RDW Plt Count MPV Neut % (Auto) Lymph % (Auto) Vance % (Auto) Eos % (Auto) Baso % (Auto) Neut # (Auto) Lymph # (Auto) Vance # (Auto) Eos # (Auto) Baso # (Auto) Neutrophils % (Manual) Band Neutrophils % Lymphocytes % (Manual) Monocytes % (Manual) Eosinophils % (Manual) Platelet Estimate Polychromasia Hypochromasia (manual) Poikilocytosis (manual Anisocytosis (manual) PT INR APTT Puncture Site Rra pCO2 40 pO2 365 H HCO3 31.4 H ABG pH 7.51 H ABG Total CO2 33.1 H ABG O2 Saturation 100.0 H ABG Base Excess 8.2 H ABG Hemoglobin ABG Carboxyhemoglobin POC ABG HHb (Measured) ABG Methemoglobin Caesar Test Na ABG Potassium 4.1 A-a O2 Difference 298.0 Respiratory Index 0.8 Hgb O2 Saturation Glucose 167 H Lactate 1.9 Vent Mode Prvc Mechanical Rate 14 FiO2 100.0 Tidal Volume 350 PEEP 5 Sodium 150.0 H Potassium Chloride 118.0 H Carbon Dioxide Anion Gap BUN Creatinine Est GFR ( Amer) Est GFR (Non-Af Amer) POC Glucose (mg/dL) Random Glucose Calcium Phosphorus Magnesium Total Bilirubin AST ALT Alkaline Phosphatase Total Creatine Kinase CK-MB (Mass) Troponin I Total Protein Albumin Globulin Albumin/Globulin Ratio Procalcitonin Arterial Blood Potassium 4.1 Urine Color Yellow Urine Clarity Hazy Urine pH 6.0 Ur Specific [place] 1.016 Urine Protein 1+ H Urine Glucose (UA) Normal Urine Ketones Negative Urine Blood Small Urine Nitrate Negative Urine Bilirubin Negative Urine Urobilinogen 2.0 H Ur Leukocyte Esterase Neg Urine WBC (Auto) 3 Urine RBC (Auto) 14 H Urine Bacteria Few H Hyaline Casts 0-2 Random Vancomycin Blood Type O POSITIVE Antibody Screen Negative 04/22/18 04/22/18 04/22/18 17:53 23:01 23:01 WBC RBC Hgb Hct MCV MCH MCHC RDW Plt Count MPV Neut % (Auto) Lymph % (Auto) Vance % (Auto) Eos % (Auto) Baso % (Auto) Neut # (Auto) Lymph # (Auto) Vance # (Auto) Eos # (Auto) Baso # (Auto) Neutrophils % (Manual) Band Neutrophils % Lymphocytes % (Manual) Monocytes % (Manual) Eosinophils % (Manual) Platelet Estimate Polychromasia Hypochromasia (manual) Poikilocytosis (manual Anisocytosis (manual) PT INR APTT 67 H D Puncture Site pCO2 pO2 HCO3 ABG pH ABG Total CO2 ABG O2 Saturation ABG Base Excess ABG Hemoglobin ABG Carboxyhemoglobin POC ABG HHb (Measured) ABG Methemoglobin Caesar Test ABG Potassium A-a O2 Difference Respiratory Index Hgb O2 Saturation Glucose Lactate Vent Mode Mechanical Rate FiO2 Tidal Volume PEEP Sodium Potassium Chloride Carbon Dioxide Anion Gap BUN Creatinine Est GFR ( Amer) Est GFR (Non-Af Amer) POC Glucose (mg/dL) 167 H Random Glucose Calcium Phosphorus Magnesium Total Bilirubin AST ALT Alkaline Phosphatase Total Creatine Kinase 273 H CK-MB (Mass) 12.2 H Troponin I 7.7400 H* Total Protein Albumin Globulin Albumin/Globulin Ratio Procalcitonin Arterial Blood Potassium Urine Color Urine Clarity Urine pH Ur Specific [place] Urine Protein Urine Glucose (UA) Urine Ketones Urine Blood Urine Nitrate Urine Bilirubin Urine Urobilinogen Ur Leukocyte Esterase Urine WBC (Auto) Urine RBC (Auto) Urine Bacteria Hyaline Casts Random Vancomycin Blood Type Antibody Screen 04/22/18 04/23/18 04/23/18 23:57 05:24 05:28 WBC RBC Hgb Hct MCV MCH MCHC RDW Plt Count MPV Neut % (Auto) Lymph % (Auto) Vance % (Auto) Eos % (Auto) Baso % (Auto) Neut # (Auto) Lymph # (Auto) Vance # (Auto) Eos # (Auto) Baso # (Auto) Neutrophils % (Manual) Band Neutrophils % Lymphocytes % (Manual) Monocytes % (Manual) Eosinophils % (Manual) Platelet Estimate Polychromasia Hypochromasia (manual) Poikilocytosis (manual Anisocytosis (manual) PT INR APTT Puncture Site R brac pCO2 28 L pO2 180 H HCO3 25.2 ABG pH 7.52 H ABG Total CO2 23.8 ABG O2 Saturation 99.9 H ABG Base Excess 0.3 ABG Hemoglobin 7.6 L ABG Carboxyhemoglobin 1.6 H POC ABG HHb (Measured) 0.1 ABG Methemoglobin 0.2 Caesar Test Na ABG Potassium A-a O2 Difference 142.0 Respiratory Index 0.8 Hgb O2 Saturation 98.0 Glucose Lactate Vent Mode Prvc Mechanical Rate 14 FiO2 50.0 Tidal Volume 350 PEEP 5 Sodium Potassium Chloride Carbon Dioxide Anion Gap BUN Creatinine Est GFR ( Amer) Est GFR (Non-Af Amer) POC Glucose (mg/dL) 106 147 H Random Glucose Calcium Phosphorus Magnesium Total Bilirubin AST ALT Alkaline Phosphatase Total Creatine Kinase CK-MB (Mass) Troponin I Total Protein Albumin Globulin Albumin/Globulin Ratio Procalcitonin Arterial Blood Potassium Urine Color Urine Clarity Urine pH Ur Specific [place] Urine Protein Urine Glucose (UA) Urine Ketones Urine Blood Urine Nitrate Urine Bilirubin Urine Urobilinogen Ur Leukocyte Esterase Urine WBC (Auto) Urine RBC (Auto) Urine Bacteria Hyaline Casts Random Vancomycin Blood Type Antibody Screen 04/23/18 04/23/18 04/23/18 05:55 05:55 05:55 WBC 18.9 H RBC 2.43 L Hgb 7.4 L D Hct 24.0 L MCV 98.8 MCH 30.4 MCHC 30.8 L RDW 16.5 H Plt Count 187 MPV 10.9 Neut % (Auto) 92.7 H Lymph % (Auto) 2.8 L Vance % (Auto) 2.3 Eos % (Auto) 1.0 Baso % (Auto) 1.2 Neut # (Auto) 17.5 H Lymph # (Auto) 0.5 L Vance # (Auto) 0.4 Eos # (Auto) 0.2 Baso # (Auto) 0.2 Neutrophils % (Manual) 86 H Band Neutrophils % 8 H Lymphocytes % (Manual) 4 L Monocytes % (Manual) 1 Eosinophils % (Manual) 1 Platelet Estimate Normal Polychromasia Slight Hypochromasia (manual) Slight Poikilocytosis (manual Anisocytosis (manual) Slight PT INR APTT 61 H D Puncture Site pCO2 pO2 HCO3 ABG pH ABG Total CO2 ABG O2 Saturation ABG Base Excess ABG Hemoglobin ABG Carboxyhemoglobin POC ABG HHb (Measured) ABG Methemoglobin Caesar Test ABG Potassium A-a O2 Difference Respiratory Index Hgb O2 Saturation Glucose Lactate Vent Mode Mechanical Rate FiO2 Tidal Volume PEEP Sodium 146 Potassium 3.9 Chloride 116 H Carbon Dioxide 24 Anion Gap 10 BUN 76 H Creatinine 2.0 H Est GFR ( Amer) 30 Est GFR (Non-Af Amer) 25 POC Glucose (mg/dL) Random Glucose 130 H D Calcium 9.0 Phosphorus 4.1 Magnesium 2.6 H Total Bilirubin 0.6 AST 471 H D ALT 427 H D Alkaline Phosphatase 108 Total Creatine Kinase 169 H CK-MB (Mass) 14.5 H Troponin I 17.0000 H* Total Protein 4.5 L Albumin 2.2 L D Globulin 2.3 Albumin/Globulin Ratio 1.0 Procalcitonin Arterial Blood Potassium Urine Color Urine Clarity Urine pH Ur Specific [place] Urine Protein Urine Glucose (UA) Urine Ketones Urine Blood Urine Nitrate Urine Bilirubin Urine Urobilinogen Ur Leukocyte Esterase Urine WBC (Auto) Urine RBC (Auto) Urine Bacteria Hyaline Casts Random Vancomycin Blood Type Antibody Screen 04/23/18 08:50 WBC RBC Hgb Hct MCV MCH MCHC RDW Plt Count MPV Neut % (Auto) Lymph % (Auto) Vance % (Auto) Eos % (Auto) Baso % (Auto) Neut # (Auto) Lymph # (Auto) Vance # (Auto) Eos # (Auto) Baso # (Auto) Neutrophils % (Manual) Band Neutrophils % Lymphocytes % (Manual) Monocytes % (Manual) Eosinophils % (Manual) Platelet Estimate Polychromasia Hypochromasia (manual) Poikilocytosis (manual Anisocytosis (manual) PT INR APTT Puncture Site pCO2 pO2 HCO3 ABG pH ABG Total CO2 ABG O2 Saturation ABG Base Excess ABG Hemoglobin ABG Carboxyhemoglobin POC ABG HHb (Measured) ABG Methemoglobin Caesar Test ABG Potassium A-a O2 Difference Respiratory Index Hgb O2 Saturation Glucose Lactate Vent Mode Mechanical Rate FiO2 Tidal Volume PEEP Sodium Potassium Chloride Carbon Dioxide Anion Gap BUN Creatinine Est GFR ( Amer) Est GFR (Non-Af Amer) POC Glucose (mg/dL) Random Glucose Calcium Phosphorus Magnesium Total Bilirubin AST ALT Alkaline Phosphatase Total Creatine Kinase CK-MB (Mass) Troponin I Total Protein Albumin Globulin Albumin/Globulin Ratio Procalcitonin Arterial Blood Potassium Urine Color Urine Clarity Urine pH Ur Specific [place] Urine Protein Urine Glucose (UA) Urine Ketones Urine Blood Urine Nitrate Urine Bilirubin Urine Urobilinogen Ur Leukocyte Esterase Urine WBC (Auto) Urine RBC (Auto) Urine Bacteria Hyaline Casts Random Vancomycin 20.7 Blood Type Antibody Screen Radiology Impressions: Radiology Impressions Chest X-Ray 04/22/18 13:23 IMPRESSION: Tip of the nasogastric tube overlies the left mid abdomen, likely in laterally positioned stomach. No acute findings. Chest X-Ray 04/22/18 14:44 IMPRESSION: No active pulmonary disease. Chest X-Ray 04/23/18 06:00 IMPRESSION: No active pulmonary disease. Stable position of support tubes. 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 During the course of her current admission she was diagnosed with an advanced cancer of unknown primary and found to have a stroke affecting her speech and swallow. Due to the patient's speech and swallow impairment, she has been getting nutrition via NG tube with the plan on inserting a PEG tube this Friday. ICU was consulted after the patient was found to be in respiratory distress and intubated on the medical floor. She was found to have a troponin of 3.4 and started on a heparin drip. EKG did show new changes. We will trend cardiac enzymes q6-8h x2. Ventilator setting are 300% FIO2, TV 350, Rate of 14, and PEEP of 5 on PRVC mode. Broad spectrum antibiotics were started by the primary team. We will follow up the patients procalcitonin and cultures. 04/23: Patient troponins trended up. Hgb dropped from 9 to 7.4. Two units of PRBCS ordered to transfused. Patient is not responsive despite being off of any sedation. Family was informed patient is in critical condition. Goals of care were discussed. Overnight, patient became DNR. We will continue to monitor the patient closely in the ICU. Neurology HOB 30 degrees GCS 7 Corneal and gag reflex present Cardiology - aspirin 81 mg - Plavix 75 daily - Heparin ggt - Cardiology on board Pulmonology - ABG consistent with respiratory alkalosis - Ventilator settings AC TV 350, PEEP 5 mm Hg, rate of 14, FIO2 of 50 Endocrinology - Levothyroxine 100 mg IVP Heme - Hgb 7.4 will give 2 units of PRBCs; consent obtained from Nephrology - DEVIN with Cr rises from 1.2 to 2.0 - BUN jumped from 57 to 76 likely secondary to UGI bleed - will monitor strict I/O - Avoid nephrotoxins ID - Fluconazole for yeast in urine - Repeat blood and urine cultures performed on 04/22 are pending GI - Upper GI bleed - Protonix 40 mg q12h - GI is following - No plan for PEG tube Disposition: Guarded, goals of care being discussed Case was reviewed and discussed with attending physician, Dr. Eddie Willis - Date & Time Date: 04/23/18 <Eddie Willis - Last Filed: 04/26/18 08:52> CCU Objective - Vital Signs / Intake & Output Vital Signs (Last 4 hours): Vital Signs Temp Pulse Resp BP Pulse Ox 04/26/18 08:32 113/74 04/26/18 08:31 80 17 100 04/26/18 08:00 99.8 F H 87 17 100 04/26/18 07:32 94 H 22 138/98 H 100 04/26/18 07:00 85 17 100 04/26/18 06:32 98 H 19 131/84 100 04/26/18 05:32 100 H 21 137/98 H 100 Intake and Output (Last 8hrs): Intake & Output 04/25/18 04/26/18 04/26/18 22:59 06:59 14:59 Intake Total 1557.2 1071.2 437.8 Output Total 200 700 Balance 1357.2 371.2 437.8 Weight 83 lb 9.6 oz Intake: IV 140 Intake, IV Amount 977.2 601.2 217.8 Left Forearm 186 Left Hand 31.2 31.2 7.8 Left Wrist 760 570 210 Tube Feeding 380 470 80 Other 200 Output: Urine 200 700 Urine, Voided 200 700 Other: # Bowel Movements 0 1 1 - Medications Active Medications: Active Medications Generic Name Dose Route Start Last Admin Trade Name Freq PRN Reason Stop Dose Admin Acetaminophen 650 mg 04/23/18 11:35 04/25/18 22:00 Tylenol 650mg/20.3ml Solution Ud PO 650 mg Q4H PRN Administration Temperature Fever >100.4 F Aspirin 81 mg 04/23/18 10:00 04/25/18 09:06 Aspirin Chewable PO 81 mg DAILY RODRIGO Administration Clopidogrel Bisulfate 75 mg 04/23/18 10:00 04/25/18 09:06 Plavix PO 75 mg DAILY RODRIGO Administration Ferrous Sulfate 300 mg 04/19/18 19:00 04/25/18 17:14 Feosol Liq PO 300 mg TID RODRIGO Administration Fluconazole 100 mls @ 100 mls/hr 04/14/18 18:30 04/25/18 18:15 Diflucan Iv 200 Mg/100 Ml Ns IVPB 100 mls/hr Q24H RODRIGO Administration Protocol Linezolid 600 mg in 300 mls @ 200 mls/hr 04/24/18 18:00 04/26/18 06:00 Zyvox 600mg/300ml D5w IVPB 200 mls/hr Q12H RODRIGO Administration Protocol Dextrose 1,000 mls @ 60 mls/hr 04/24/18 19:15 04/26/18 03:45 Dextrose 5% In Water 1000 Ml IV 60 mls/hr .[id number] RODRIGO Administration Insulin Aspart 0 unit 04/12/18 18:00 04/26/18 06:00 Novolog SC Not Given Q6H RODRIGO Protocol Levothyroxine Sodium 100 mcg 04/22/18 10:00 04/25/18 09:07 Synthroid IVP 100 mcg DAILY RODRIGO Administration Multivitamins 1 tab 04/18/18 10:00 04/25/18 09:06 Hexavitamin PO 1 tab DAILY RODRIGO Administration Pantoprazole Sodium 40 mg 04/23/18 14:45 04/26/18 02:45 Protonix Inj IVP 40 mg Q12H RODRIGO Administration Potassium Phos/Sodium Phos 1 pkt 04/25/18 10:00 04/25/18 17:14 Neutra-Phos PO 04/27/18 10:01 1 pkt TID RODRIGO Administration Rosuvastatin Calcium 5 mg 04/10/18 22:00 04/24/18 22:00 Crestor PO 5 mg HS RODRIGO Administration Sucralfate 1 gm 04/24/18 10:00 04/25/18 17:14 Carafate Oral Susp PO 1 gm TID RODRIGO Administration Vitamin A 0.5 ea 04/10/18 14:21 04/23/18 15:56 Vitamin A & D Oint Ud Foilpak TOP 0.5 ea Q4 PRN Administration Dry mouth - Patient Studies Lab Studies: Microbiology Studies 04/22/18 14:30 Blood Culture - Preliminary Blood NO GROWTH AFTER 3 DAYS 04/22/18 14:00 Blood Culture - Preliminary Blood NO GROWTH AFTER 3 DAYS Lab Studies 04/26/18 04/26/18 04/26/18 Range/Units 05:48 05:48 05:48 WBC 16.9 H (4.8-10.8) K/uL RBC 2.82 L (3.80-5.20) Mil/uL Hgb 8.8 L (11.0-16.0) g/dL Hct 27.2 L (34.0-47.0) % MCV 96.5 (81.0-99.0) fL MCH 31.3 H (27.0-31.0) pg MCHC 32.4 L (33.0-37.0) g/dL RDW 17.6 H (11.5-14.5) % Plt Count 89 L D (130-400) K/uL MPV 11.6 (7.2-11.7) fL Neut % (Auto) 88.0 H (50.0-75.0) % Lymph % (Auto) 4.5 L (20.0-40.0) % Vance % (Auto) 3.5 (0.0-10.0) % Eos % (Auto) 3.2 (0.0-4.0) % Baso % (Auto) 0.8 (0.0-2.0) % Neut # (Auto) 14.9 H (1.8-7.0) K/uL Lymph # (Auto) 0.8 L (1.0-4.3) K/uL Vance # (Auto) 0.6 (0.0-0.8) K/uL Eos # (Auto) 0.5 (0.0-0.7) K/uL Baso # (Auto) 0.1 (0.0-0.2) K/uL Neutrophils % (Manual) 81 H (50-75) % Band Neutrophils % 3 H (0-2) % Lymphocytes % (Manual) 7 L (20-40) % Monocytes % (Manual) 4 (0-10) % Eosinophils % (Manual) 4 (0-4) % Metamyelocytes % 1 H (0-0) % Nucleated RBC % 1 H (0-0) % Platelet Estimate Decreased L (NORMAL) Large Platelets Present Polychromasia Slight Hypochromasia (manual) Slight Poikilocytosis (manual Slight Anisocytosis (manual) Moderate Schistocytes Slight APTT 48 H D (21-34) SECONDS Sodium 146 (132-148) mmol/L Potassium 4.1 (3.6-5.2) mmol/L Chloride 119 H (98-107) mmol/L Carbon Dioxide 25 (22-30) mmol/L Anion Gap 7 L (10-20) BUN 41 H (7-17) mg/dL Creatinine 0.8 (0.7-1.2) mg/dL Est GFR ( Amer) > 60 Est GFR (Non-Af Amer) > 60 POC Glucose (mg/dL) (65-110) mg/dL Random Glucose 149 H D (65-105) mg/dL Calcium 8.1 L (8.6-10.4) mg/dl Phosphorus 2.5 (2.5-4.5) mg/dL Magnesium 1.9 (1.6-2.3) mg/dL Total Bilirubin 0.6 (0.2-1.3) mg/dL AST 227 H (14-36) U/L ALT 784 H (9-52) U/L Alkaline Phosphatase 128 H (38-126) U/L Total Protein 4.7 L (6.3-8.3) g/dL Albumin 2.2 L (3.5-5.0) g/dL Globulin 2.5 (2.2-3.9) gm/dL Albumin/Globulin Ratio 0.9 L (1.0-2.1) 04/25/18 04/25/18 04/25/18 Range/Units 23:43 17:50 12:20 WBC (4.8-10.8) K/uL RBC (3.80-5.20) Mil/uL Hgb (11.0-16.0) g/dL Hct (34.0-47.0) % MCV (81.0-99.0) fL MCH (27.0-31.0) pg MCHC (33.0-37.0) g/dL RDW (11.5-14.5) % Plt Count (130-400) K/uL MPV (7.2-11.7) fL Neut % (Auto) (50.0-75.0) % Lymph % (Auto) (20.0-40.0) % Vance % (Auto) (0.0-10.0) % Eos % (Auto) (0.0-4.0) % Baso % (Auto) (0.0-2.0) % Neut # (Auto) (1.8-7.0) K/uL Lymph # (Auto) (1.0-4.3) K/uL Vance # (Auto) (0.0-0.8) K/uL Eos # (Auto) (0.0-0.7) K/uL Baso # (Auto) (0.0-0.2) K/uL Neutrophils % (Manual) (50-75) % Band Neutrophils % (0-2) % Lymphocytes % (Manual) (20-40) % Monocytes % (Manual) (0-10) % Eosinophils % (Manual) (0-4) % Metamyelocytes % (0-0) % Nucleated RBC % (0-0) % Platelet Estimate (NORMAL) Large Platelets Polychromasia Hypochromasia (manual) Poikilocytosis (manual Anisocytosis (manual) Schistocytes APTT (21-34) SECONDS Sodium (132-148) mmol/L Potassium (3.6-5.2) mmol/L Chloride (98-107) mmol/L Carbon Dioxide (22-30) mmol/L Anion Gap (10-20) BUN (7-17) mg/dL Creatinine (0.7-1.2) mg/dL Est GFR ( Amer) Est GFR (Non-Af Amer) POC Glucose (mg/dL) 174 H 205 H 170 H (65-110) mg/dL Random Glucose (65-105) mg/dL Calcium (8.6-10.4) mg/dl Phosphorus (2.5-4.5) mg/dL Magnesium (1.6-2.3) mg/dL Total Bilirubin (0.2-1.3) mg/dL AST (14-36) U/L ALT (9-52) U/L Alkaline Phosphatase (38-126) U/L Total Protein (6.3-8.3) g/dL Albumin (3.5-5.0) g/dL Globulin (2.2-3.9) gm/dL Albumin/Globulin Ratio (1.0-2.1) 04/25/18 Range/Units 06:25 WBC (4.8-10.8) K/uL RBC (3.80-5.20) Mil/uL Hgb (11.0-16.0) g/dL Hct (34.0-47.0) % MCV (81.0-99.0) fL MCH (27.0-31.0) pg MCHC (33.0-37.0) g/dL RDW (11.5-14.5) % Plt Count (130-400) K/uL MPV (7.2-11.7) fL Neut % (Auto) (50.0-75.0) % Lymph % (Auto) (20.0-40.0) % Vance % (Auto) (0.0-10.0) % Eos % (Auto) (0.0-4.0) % Baso % (Auto) (0.0-2.0) % Neut # (Auto) (1.8-7.0) K/uL Lymph # (Auto) (1.0-4.3) K/uL Vance # (Auto) (0.0-0.8) K/uL Eos # (Auto) (0.0-0.7) K/uL Baso # (Auto) (0.0-0.2) K/uL Neutrophils % (Manual) 83 H (50-75) % Band Neutrophils % 5 H (0-2) % Lymphocytes % (Manual) 4 L (20-40) % Monocytes % (Manual) 3 (0-10) % Eosinophils % (Manual) 4 (0-4) % Metamyelocytes % 1 H (0-0) % Nucleated RBC % (0-0) % Platelet Estimate Slightly decreased L (NORMAL) Large Platelets Present Polychromasia Slight Hypochromasia (manual) Slight Poikilocytosis (manual Slight Anisocytosis (manual) Moderate Schistocytes Slight APTT (21-34) SECONDS Sodium (132-148) mmol/L Potassium (3.6-5.2) mmol/L Chloride (98-107) mmol/L Carbon Dioxide (22-30) mmol/L Anion Gap (10-20) BUN (7-17) mg/dL Creatinine (0.7-1.2) mg/dL Est GFR ( Amer) Est GFR (Non-Af Amer) POC Glucose (mg/dL) (65-110) mg/dL Random Glucose (65-105) mg/dL Calcium (8.6-10.4) mg/dl Phosphorus (2.5-4.5) mg/dL Magnesium (1.6-2.3) mg/dL Total Bilirubin (0.2-1.3) mg/dL AST (14-36) U/L ALT (9-52) U/L Alkaline Phosphatase (38-126) U/L Total Protein (6.3-8.3) g/dL Albumin (3.5-5.0) g/dL Globulin (2.2-3.9) gm/dL Albumin/Globulin Ratio (1.0-2.1) Laboratory Results - last 24 hr 04/25/18 04/25/18 04/25/18 06:25 12:20 17:50 WBC RBC Hgb Hct MCV MCH MCHC RDW Plt Count MPV Neut % (Auto) Lymph % (Auto) Vance % (Auto) Eos % (Auto) Baso % (Auto) Neut # (Auto) Lymph # (Auto) Vance # (Auto) Eos # (Auto) Baso # (Auto) Neutrophils % (Manual) 83 H Band Neutrophils % 5 H Lymphocytes % (Manual) 4 L Monocytes % (Manual) 3 Eosinophils % (Manual) 4 Metamyelocytes % 1 H Nucleated RBC % Platelet Estimate Slightly decreased L Large Platelets Present Polychromasia Slight Hypochromasia (manual) Slight Poikilocytosis (manual Slight Anisocytosis (manual) Moderate Schistocytes Slight APTT Sodium Potassium Chloride Carbon Dioxide Anion Gap BUN Creatinine Est GFR ( Amer) Est GFR (Non-Af Amer) POC Glucose (mg/dL) 170 H 205 H Random Glucose Calcium Phosphorus Magnesium Total Bilirubin AST ALT Alkaline Phosphatase Total Protein Albumin Globulin Albumin/Globulin Ratio 04/25/18 04/26/18 04/26/18 23:43 05:48 05:48 WBC 16.9 H RBC 2.82 L Hgb 8.8 L Hct 27.2 L MCV 96.5 MCH 31.3 H MCHC 32.4 L RDW 17.6 H Plt Count 89 L D MPV 11.6 Neut % (Auto) 88.0 H Lymph % (Auto) 4.5 L Vance % (Auto) 3.5 Eos % (Auto) 3.2 Baso % (Auto) 0.8 Neut # (Auto) 14.9 H Lymph # (Auto) 0.8 L Vance # (Auto) 0.6 Eos # (Auto) 0.5 Baso # (Auto) 0.1 Neutrophils % (Manual) 81 H Band Neutrophils % 3 H Lymphocytes % (Manual) 7 L Monocytes % (Manual) 4 Eosinophils % (Manual) 4 Metamyelocytes % 1 H Nucleated RBC % 1 H Platelet Estimate Decreased L Large Platelets Present Polychromasia Slight Hypochromasia (manual) Slight Poikilocytosis (manual Slight Anisocytosis (manual) Moderate Schistocytes Slight APTT Sodium 146 Potassium 4.1 Chloride 119 H Carbon Dioxide 25 Anion Gap 7 L BUN 41 H Creatinine 0.8 Est GFR ( Amer) > 60 Est GFR (Non-Af Amer) > 60 POC Glucose (mg/dL) 174 H Random Glucose 149 H D Calcium 8.1 L Phosphorus 2.5 Magnesium 1.9 Total Bilirubin 0.6 AST 227 H ALT 784 H Alkaline Phosphatase 128 H Total Protein 4.7 L Albumin 2.2 L Globulin 2.5 Albumin/Globulin Ratio 0.9 L 04/26/18 05:48 WBC RBC Hgb Hct MCV MCH MCHC RDW Plt Count MPV Neut % (Auto) Lymph % (Auto) Vance % (Auto) Eos % (Auto) Baso % (Auto) Neut # (Auto) Lymph # (Auto) Vance # (Auto) Eos # (Auto) Baso # (Auto) Neutrophils % (Manual) Band Neutrophils % Lymphocytes % (Manual) Monocytes % (Manual) Eosinophils % (Manual) Metamyelocytes % Nucleated RBC % Platelet Estimate Large Platelets Polychromasia Hypochromasia (manual) Poikilocytosis (manual Anisocytosis (manual) Schistocytes APTT 48 H D Sodium Potassium Chloride Carbon Dioxide Anion Gap BUN Creatinine Est GFR ( Amer) Est GFR (Non-Af Amer) POC Glucose (mg/dL) Random Glucose Calcium Phosphorus Magnesium Total Bilirubin AST ALT Alkaline Phosphatase Total Protein Albumin Globulin Albumin/Globulin Ratio Radiology Impressions: Radiology Impressions Chest X-Ray 04/25/18 07:06 IMPRESSION: No active disease. Assessment/Plan - Assessment and Plan (Free Text) Plan: Above resident note reveiwed and verified. Patient remains intubated on IV heparin and gettgin 1 unit PRBC. -prognosis poor 2nd poor neurological status -above resident note reveiwed and varified -palliative eval initiated - Date & Time Time: 11:00
[2018-04-23] MEDS: Acetaminophen 650mg/20.3ml solution UD PO PRN (11:44)
[2018-04-23 14:04] LABS: ARTERIAL BLOOD GAS HCO3 24.3 mmol/L (21-28); ARTERIAL BLOOD GAS O2 SAT 99.3 % (95-98); ARTERIAL BLOOD GAS PCO2 24 mm/Hg (35-45); ARTERIAL BLOOD GAS PH 7.53 (7.35-7.45); ARTERIAL BLOOD GAS PO2 499 mm/Hg (80-100); ARTERIAL BLOOD GAS TCO2 20.8 mmol/L (22-28)
--- NOTE | 2018-04-23 15:03 | CP.PCM.PN ---
Subjective - Date & Time of Evaluation Date of Evaluation: 04/23/18 Time of Evaluation: 15:00 - Subjective Subjective: Still intubated and sedated. Objective - Vital Signs/Intake and Output Vital Signs (last 24 hours): Temp Pulse Resp BP Pulse Ox 99.1 F 94 H 20 152/99 H 97 04/23/18 14:17 04/23/18 14:17 04/23/18 14:17 04/23/18 14:17 04/23/18 14:00 Intake and Output: 04/23/18 04/23/18 06:59 18:59 Intake Total 1356.2 1998.7 Output Total 270 37 Balance 1086.2 1961.7 - Medications Medications: Current Medications Acetaminophen (Tylenol 650mg/20.3ml Solution Ud) 650 mg PO Q4H PRN PRN Reason: Temperature Fever >100.4 F Last Admin: 04/23/18 11:44 Dose: 650 mg Albuterol/Ipratropium (Duoneb 3 Mg/0.5 Mg (3 Ml) Ud) 3 ml INH RQ6 [facility] Last Admin: 04/23/18 07:30 Dose: 3 ml Apixaban (Eliquis) 2.5 mg PO BID [facility] Last Admin: 04/21/18 10:29 Dose: Not Given Aspirin (Aspirin Chewable) 81 mg PO DAILY [facility] Last Admin: 04/23/18 10:05 Dose: 81 mg Clopidogrel Bisulfate (Plavix) 75 mg PO DAILY [facility] Last Admin: 04/23/18 10:06 Dose: 75 mg Diltiazem HCl (Cardizem) 30 mg PO QID [facility] Last Admin: 04/23/18 14:48 Dose: 30 mg Famotidine (Pepcid) 20 mg IVP Q12 [facility] Last Admin: 04/23/18 14:48 Dose: Not Given Ferrous Sulfate (Feosol Liq) 300 mg PO TID [facility] Last Admin: 04/22/18 10:54 Dose: 300 mg Fluconazole (Diflucan Iv 200 Mg/100 Ml Ns) 100 mls @ 100 mls/hr IVPB Q24H [facility]; Protocol Last Admin: 04/22/18 18:28 Dose: 100 mls/hr Vancomycin/Sodium Chloride (Vancomycin 1 Gm/Ns 200 Ml) 1 gm in 200 mls @ 133.333 mls/hr IVPB Q12H [facility]; Protocol Stop: 04/27/18 22:01 Last Admin: 04/22/18 22:26 Dose: 133.333 mls/hr Propofol (Diprivan) 1,000 mg in 100 mls @ 0.98 mls/hr IV .Q24H PRN; Protocol PRN Reason: TITRATE PER MD ORDER Last Titration: 04/22/18 22:10 Dose: 0 mcg/kg/min, 0 mls/hr Heparin Sodium/Sodium Chloride (Heparin 97013 Units/250ml 1/2 Normal Saline) 25,000 units in 250 mls @ 3.919 mls/hr IV .Q24H PRN; Protocol PRN Reason: ADJUST RATE PER PROTOCOL Last Admin: 04/22/18 16:42 Dose: 12 units/kg/hr, 3.919 mls/hr Piperacillin Sod/Tazobactam (Sod 2.25 gm/ Sodium Chloride) 100 mls @ 100 mls/hr IVPB Q8H [facility]; Protocol Last Admin: 04/23/18 08:48 Dose: 100 mls/hr Insulin Aspart (Novolog) 0 unit SC Q6H [facility]; Protocol Last Admin: 04/23/18 12:56 Dose: Not Given Levothyroxine Sodium (Synthroid) 100 mcg IVP DAILY [facility] Last Admin: 04/23/18 10:52 Dose: 100 mcg Multivitamins (Hexavitamin) 1 tab PO DAILY [facility] Last Admin: 04/23/18 10:04 Dose: 1 tab Pantoprazole Sodium (Protonix Inj) 40 mg IVP Q12H [facility] Promethazine HCl/Dextromethorphan (Phenergan Dm Syrup) 5 ml PO Q6H PRN PRN Reason: Cough and congestion Rosuvastatin Calcium (Crestor) 5 mg PO HS [facility] Last Admin: 04/22/18 22:11 Dose: 5 mg Vitamin A (Vitamin A & D Oint Ud Foilpak) 0.5 ea TOP Q4 PRN PRN Reason: Dry mouth Last Admin: 04/21/18 10:27 Dose: 0.5 ea - Labs Labs: 04/23/18 05:55 04/23/18 05:55 PT 14.8 SECONDS (9.7-12.2) H 04/22/18 15:56 INR 1.4 04/22/18 15:56 APTT 61 SECONDS (21-34) H D 04/23/18 05:55 - Head Exam Head Exam: NORMOCEPHALIC - Neck Exam Neck Exam: Normal Inspection - Respiratory Exam Additional comments: Intubated. - Cardiovascular Exam Cardiovascular Exam: REGULAR RHYTHM - Extremities Exam Extremities Exam: Normal Inspection - Neurological Exam Additional comments: Intubated and sedated. Assessment and Plan (1) NSTEMI (non-ST elevated myocardial infarction) Assessment & Plan: NSTEMI, Troponin trensding up. Continue ACS protocol. Will discuss with family about further management. Status: Acute
--- NOTE | 2018-04-23 15:23 | CP.PCM.PCO ---
Physician Communication Note - Physician Communication Note Physician Communication Note: Family meeting tomorrow at 10 am
[2018-04-23] MEDS: Vitamins A & D Oint UD Foilpak TOP PRN (15:56)
--- NOTE | 2018-04-23 17:22 | CON ---
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 The patient has had a stormy course recently she has had a CVA. She had an ID, and while in the hospital with the CVA, they discovered that she had a neck mass that they felt was thyroid and further workup showed diffuse metastasis to her bones. The blood test show CA 19-9 is very high. Although the x-rays that were done ____ 0:43 does not show an actual mass of the pancreas. The patient was scheduled for biopsy last week, evidently was not done and she was upstairs in the regular floor yesterday where she collapsed and evidently has now an acute ID with elevated troponin levels and is on heparin drip. PHYSICAL EXAMINATION: GENERAL: Right now shows a cachectic woman with temporal wasting noted. NODES: Nonpalpable in the axillary, cervical, supraclavicular regions. BREASTS: Shows no obvious mass. LUNGS: The patient is lying flat in the bed, but she has an NG feeding tube. ABDOMEN: Shows no obvious liver or spleen mass. EXTREMITIES: Downgoing bilaterally. ASSESSMENT AND PLAN: The consideration was to do a bone marrow aspiration biopsy, when she was up on the floor yesterday, I was going to speak to the family, but at this present point, she just had an acute ID and is being treated for that. She is a DNR at this point as well. We will see how she does over the next couple of days. If she is improving in some clinical way, I can only re-discuss the possibility of a bone marrow aspiration biopsy to get a confirmation of the radiologic diagnosis of cancer that we have, but at this point, the biopsy would not alter her medical course right now as she has too many other medical problems. Ayaan Cruz MD
--- NOTE | 2018-04-23 17:32 | CP.PCM.PN ---
Subjective - Date & Time of Evaluation Date of Evaluation: 04/23/18 Time of Evaluation: 12:00 - Subjective Subjective: Patient seen and examined Patient got intubated yesterday for respiratory distress and was placed on ventilatory support Poorly responsive Afebrile Objective - Vital Signs/Intake and Output Vital Signs (last 24 hours): Temp Pulse Resp BP Pulse Ox 98.0 F 69 16 80/48 L 100 04/23/18 16:00 04/23/18 17:00 04/23/18 17:00 04/23/18 16:57 04/23/18 17:00 Intake and Output: 04/23/18 04/23/18 06:59 18:59 Intake Total 1356.2 2512.9 Output Total 270 137 Balance 1086.2 2375.9 - Medications Medications: Current Medications Acetaminophen (Tylenol 650mg/20.3ml Solution Ud) 650 mg PO Q4H PRN PRN Reason: Temperature Fever >100.4 F Last Admin: 04/23/18 11:44 Dose: 650 mg Albuterol/Ipratropium (Duoneb 3 Mg/0.5 Mg (3 Ml) Ud) 3 ml INH RQ6 [facility] Last Admin: 04/23/18 07:30 Dose: 3 ml Apixaban (Eliquis) 2.5 mg PO BID [facility] Last Admin: 04/21/18 10:29 Dose: Not Given Aspirin (Aspirin Chewable) 81 mg PO DAILY [facility] Last Admin: 04/23/18 10:05 Dose: 81 mg Clopidogrel Bisulfate (Plavix) 75 mg PO DAILY [facility] Last Admin: 04/23/18 10:06 Dose: 75 mg Ferrous Sulfate (Feosol Liq) 300 mg PO TID [facility] Last Admin: 04/22/18 10:54 Dose: 300 mg Fluconazole (Diflucan Iv 200 Mg/100 Ml Ns) 100 mls @ 100 mls/hr IVPB Q24H [facility]; Protocol Last Admin: 04/22/18 18:28 Dose: 100 mls/hr Vancomycin/Sodium Chloride (Vancomycin 1 Gm/Ns 200 Ml) 1 gm in 200 mls @ 133.333 mls/hr IVPB Q12H [facility]; Protocol Stop: 04/27/18 22:01 Last Admin: 04/22/18 22:26 Dose: 133.333 mls/hr Heparin Sodium/Sodium Chloride (Heparin 02408 Units/250ml 1/2 Normal Saline) 25,000 units in 250 mls @ 3.919 mls/hr IV .Q24H PRN; Protocol PRN Reason: ADJUST RATE PER PROTOCOL Last Admin: 04/22/18 16:42 Dose: 12 units/kg/hr, 3.919 mls/hr Piperacillin Sod/Tazobactam (Sod 2.25 gm/ Sodium Chloride) 100 mls @ 100 mls/hr IVPB Q8H [facility]; Protocol Last Admin: 04/23/18 15:54 Dose: 100 mls/hr Insulin Aspart (Novolog) 0 unit SC Q6H [facility]; Protocol Last Admin: 04/23/18 12:56 Dose: Not Given Levothyroxine Sodium (Synthroid) 100 mcg IVP DAILY [facility] Last Admin: 04/23/18 10:52 Dose: 100 mcg Multivitamins (Hexavitamin) 1 tab PO DAILY [facility] Last Admin: 04/23/18 10:04 Dose: 1 tab Pantoprazole Sodium (Protonix Inj) 40 mg IVP Q12H [facility] Last Admin: 04/23/18 15:05 Dose: 40 mg Rosuvastatin Calcium (Crestor) 5 mg PO HS [facility] Last Admin: 04/22/18 22:11 Dose: 5 mg Vitamin A (Vitamin A & D Oint Ud Foilpak) 0.5 ea TOP Q4 PRN PRN Reason: Dry mouth Last Admin: 04/23/18 15:56 Dose: 0.5 ea - Labs Labs: 04/23/18 05:55 04/23/18 05:55 PT 14.8 SECONDS (9.7-12.2) H 04/22/18 15:56 INR 1.4 04/22/18 15:56 APTT 61 SECONDS (21-34) H D 04/23/18 05:55 - Head Exam Head Exam: ATRAUMATIC, NORMOCEPHALIC - ENT Exam ENT Exam: Mucous Membranes Moist - Respiratory Exam Respiratory Exam: Decreased Breath Sounds - Cardiovascular Exam Cardiovascular Exam: REGULAR RHYTHM - GI/Abdominal Exam GI & Abdominal Exam: Soft, Normal Bowel Sounds Assessment and Plan (1) Acute respiratory failure Assessment & Plan: Continue ventilatory support CT of head Continue treatment for acute coronary syndrome IV antibiotics Prognosis poor Status: Acute (2) NSTEMI (non-ST elevated myocardial infarction) Status: Acute (3) CVA (cerebral vascular accident) Status: Acute (4) Metastatic cancer Status: Acute (5) COPD exacerbation Status: Acute
[2018-04-23] MEDS: Fluconazole IV 200mg/100 ml NS 100 ML IVPB SCH (17:40)
--- NOTE | 2018-04-23 18:02 | CARD ---
APPROVED REPORT Date of service: 04/22/2018 EKG Measurement Heart [id number] <Conclusion> Normal sinus rhythm Left ventricular hypertrophy with repolarization abnormality Abnormal ECG
--- NOTE | 2018-04-23 18:24 | CP.PCM.PN ---
Subjective - Date & Time of Evaluation Date of Evaluation: 04/23/18 Time of Evaluation: 08:00 - Subjective Subjective: intubated sedated poor prognosis Objective - Vital Signs/Intake and Output Vital Signs (last 24 hours): Temp Pulse Resp BP Pulse Ox 97.3 F L 66 16 92/56 L 100 04/23/18 18:04 04/23/18 18:05 04/23/18 18:05 04/23/18 18:06 04/23/18 18:05 Intake and Output: 04/23/18 04/23/18 06:59 18:59 Intake Total 1356.2 2933.8 Output Total 270 147 Balance 1086.2 2786.8 - Medications Medications: Current Medications Acetaminophen (Tylenol 650mg/20.3ml Solution Ud) 650 mg PO Q4H PRN PRN Reason: Temperature Fever >100.4 F Last Admin: 04/23/18 11:44 Dose: 650 mg Albuterol/Ipratropium (Duoneb 3 Mg/0.5 Mg (3 Ml) Ud) 3 ml INH RQ6 [facility] Last Admin: 04/23/18 07:30 Dose: 3 ml Apixaban (Eliquis) 2.5 mg PO BID [facility] Last Admin: 04/21/18 10:29 Dose: Not Given Aspirin (Aspirin Chewable) 81 mg PO DAILY [facility] Last Admin: 04/23/18 10:05 Dose: 81 mg Clopidogrel Bisulfate (Plavix) 75 mg PO DAILY [facility] Last Admin: 04/23/18 10:06 Dose: 75 mg Ferrous Sulfate (Feosol Liq) 300 mg PO TID [facility] Last Admin: 04/22/18 10:54 Dose: 300 mg Fluconazole (Diflucan Iv 200 Mg/100 Ml Ns) 100 mls @ 100 mls/hr IVPB Q24H [facility]; Protocol Last Admin: 04/23/18 17:40 Dose: 100 mls/hr Vancomycin/Sodium Chloride (Vancomycin 1 Gm/Ns 200 Ml) 1 gm in 200 mls @ 133.333 mls/hr IVPB Q12H [facility]; Protocol Stop: 04/27/18 22:01 Last Admin: 04/22/18 22:26 Dose: 133.333 mls/hr Heparin Sodium/Sodium Chloride (Heparin 22390 Units/250ml 1/2 Normal Saline) 25,000 units in 250 mls @ 3.919 mls/hr IV .Q24H PRN; Protocol PRN Reason: ADJUST RATE PER PROTOCOL Last Admin: 04/22/18 16:42 Dose: 12 units/kg/hr, 3.919 mls/hr Piperacillin Sod/Tazobactam (Sod 2.25 gm/ Sodium Chloride) 100 mls @ 100 mls/hr IVPB Q8H [facility]; Protocol Last Admin: 04/23/18 15:54 Dose: 100 mls/hr Insulin Aspart (Novolog) 0 unit SC Q6H [facility]; Protocol Last Admin: 04/23/18 12:56 Dose: Not Given Levothyroxine Sodium (Synthroid) 100 mcg IVP DAILY [facility] Last Admin: 04/23/18 10:52 Dose: 100 mcg Multivitamins (Hexavitamin) 1 tab PO DAILY [facility] Last Admin: 04/23/18 10:04 Dose: 1 tab Pantoprazole Sodium (Protonix Inj) 40 mg IVP Q12H [facility] Last Admin: 04/23/18 15:05 Dose: 40 mg Rosuvastatin Calcium (Crestor) 5 mg PO HS [facility] Last Admin: 04/22/18 22:11 Dose: 5 mg Vitamin A (Vitamin A & D Oint Ud Foilpak) 0.5 ea TOP Q4 PRN PRN Reason: Dry mouth Last Admin: 04/23/18 15:56 Dose: 0.5 ea - Labs Labs: 04/23/18 05:55 04/23/18 05:55 PT 14.8 SECONDS (9.7-12.2) H 04/22/18 15:56 INR 1.4 04/22/18 15:56 APTT 61 SECONDS (21-34) H D 04/23/18 05:55 - Constitutional Appears: Confused, Cachectic, Chronically Ill - Head Exam Head Exam: ATRAUMATIC, NORMOCEPHALIC - Eye Exam Eye Exam: absent: Scleral icterus - ENT Exam ENT Exam: Mucous Membranes Dry - Neck Exam Neck Exam: absent: Lymphadenopathy - Respiratory Exam Respiratory Exam: Decreased Breath Sounds - Cardiovascular Exam Cardiovascular Exam: REGULAR RHYTHM - GI/Abdominal Exam GI & Abdominal Exam: Distended, Soft. absent: Tenderness - Rectal Exam Rectal Exam: Deferred - Extremities Exam Extremities Exam: absent: Pedal Edema - Back Exam Back Exam: absent: CVA tenderness (L), CVA tenderness (R) - Neurological Exam Neurological Exam: Altered - Psychiatric Exam Psychiatric exam: Depressed - Skin Skin Exam: Dry Assessment and Plan (1) Acute respiratory failure with hypoxia and hypercapnia Status: Acute (2) Metastatic cancer Status: Acute (3) COPD exacerbation Status: Acute (4) Cachexia Status: Acute (5) CVA (cerebral vascular accident) Status: Acute - Assessment and Plan (Free Text) Assessment: 67 year old female with past medical history of hypertension anxiety, CVA with mild left sided weakness and slurred speech, s/p coronary stent placement on 04/05/2018 who presented with acute respiratory failure and was intubated in the field on 04/09/2018. During the course of her current admission she was diagnosed with an advanced cancer of unknown primary and found to have a stroke impairing her speech and swallow enough that she has been getting nutrition via NG tube with the plan on inserting a PEG tube this Friday. The patient's Eliquis was held in light of this planned procedure starting yesterday. Today, 04/22/2018 in the morning, the patient pulled out the NGT and it was re-inserted. In the afternoon today, a rapid response was called when the patient was found by the nurse in respiratory distress covered in her own feces. Anesthesiology was paged overhead and the patient was subsequently intubated via RSI. She was brought to the ICU intubated. possible extension of CVA resp failure Ca with mets poor prognosis
--- NOTE | 2018-04-23 19:06 | PN ---
DATE: 04/23/2018 ENDOCRINOLOGY FOLLOWUP NOTE LOCATION: ICU Room 10. SUBJECTIVE: This is a 67-year-old female with recent supervening acute respiratory failure and also concomitant acute myocardial infarction who presents now back to ICU and is being followed closely for hemodynamic monitoring. Still remains intubated and sedated at this time. Her glycemic profile is near optimal ranging from 106 to 126 mg/dL. Her Troponin levels are extremely elevated at 17 today with continued elevation of her liver transaminases. Her chemistries showed a BUN of 76, sodium 146, potassium 3.9, chloride 116, CO2 of 24, glucose 130 and creatinine 2. There is also supervening acute renal failure and prerenal azotemia noted thereof. She remains clinically euthyroid and biochemically with early hypothyroidism, currently receiving and tolerating the levothyroxine replacement therapy as given. Her latest thyroid studies showed a T4 of 7.09 with the TSH 7.33. So at this time, we will continue the levothyroxine given as 100 mcg IV push once daily as ordered. We will obtain serial chemistries and supplement accordingly as needed. We will also obtain serial thyroid studies and adjust her dose regimen accordingly. Akiko Erazo MD
[2018-04-24] MEDS: (Novolog) Insulin Aspart, Recombinant 100 u/ml 10 ml vial SC SCH ×5 (00:11→18:51)
[2018-04-24] MEDS: Albuterol-Ipratrop 3 mg / 0.5 (3 ml) UD INH SCH ×3 (01:20→13:41)
--- NOTE | 2018-04-24 02:24 | PN ---
DATE: 04/23/2018 FOLLOWUP RENAL CONSULTATION LOCATION: The patient is located in ICU, bed 10. REQUESTED BY: Libia Brady MD REASON FOR FOLLOWUP: Acute renal failure. SUBJECTIVE: Mrs. Gonzalez is an about 67-year-old very thin-built, cachectic [place] female with a history of hypertension, coronary artery disease, status post RI, status post stent placement, CVA, who was admitted initially with altered mental status and respiratory failure. The patient was intubated and admitted to ICU, status post vigorous diuresis. Subsequently, the patient developed acute renal failure and hypernatremia, status post extubation, and the patient was treated with gentle hydration. Renal function improved and also serum sodium was corrected. The patient was also found to have a radiological evidence of metastatic cancer disease of unknown etiology, and subsequently, the patient was found to have a thyroid mass and also elevated CA19-9 and CEA levels, CA19-9 more than 10,000 and CEA more than 2000. The patient was transferred to medical floor. The patient suddenly collapsed yesterday on the medical floor and found to have elevated troponin levels, status post [employer] and intubated and transferred back to ICU. The patient is DNR. The patient was also hypotensive this morning, on FiO2 100% this morning. PHYSICAL EXAMINATION: VITAL SIGNS: As follows: Blood pressure 107/81, pulse 112, respirations 16, temperature 99.9, saturation 100%. Height 5 feet 3 inches, weight is 72 pounds. GENERAL: Mrs. Gonzalez is a 67-year-old elderly, very cachectic, thin-built female, on ventilator. HEENT: Pupils normal, reactive to light and accommodation. Conjunctivae pink. Sclerae anicteric, on ventilator. NECK: No thyroid enlargement. LUNGS: Symmetric on both sides. Bilateral breath sounds present. No crackles. CVS: [place] at the fifth intercostal space, midclavicular line. S1 and S2 audible. No murmur or gallop. ABDOMEN: Normal in appearance. Soft, tympanitic. No guarding. No rigidity. No hepatosplenomegaly. NUTRITION SERVICES ASSISTANT: The patient is on ventilator, under sedation. EXTREMITIES: No cyanosis, no clubbing, no edema. CURRENT MEDICATIONS: Include as follows, aspirin 81 mg daily, Crestor 5 mg at bedtime, Diflucan 200 mg daily, DuoNeb inhaler, Eliquis on hold, ferrous sulfate on hold, IV heparin at 12 units/kg/hour, multivitamins 1 tablet daily, NovoLog per sliding scale, Zosyn 2.25 g IV every 8 hours, Plavix 75 mg daily, Protonix 40 mg IV every 12 hours, Tylenol, vancomycin 1 g every 12 hours on hold, and vitamin A and D ointment topical every 4 hours. LABORATORY DATA: Include as follows: As of 04/22/2018, WBC 16.7, hemoglobin 9.6, hematocrit is 29.9, platelets 281. PT 14.8, PTT 38. Sodium 146, potassium 4.4, chloride 111, bicarb 32, BUN 57, creatinine 1.2, glucose 211, calcium 10.2, phosphorus 5.1, magnesium is 2.6, total protein 5.9, albumin is 3.2, and troponin 3.44. Urine; yellow, hazy, pH 6, specific 1.016, protein 1+, glucose normal, ketones negative, blood small, bilirubin is negative, urobilinogen 2, leukocyte esterase negative, wbc 3, rbc 14, and bacteria few. Other laboratory data, troponin second set is 7.74 and third set is 17. As of 04/23/2018: WBC 18.9, hemoglobin 7.4, hematocrit is 24, platelets 187. ABG; pH of 7.52, pCO2 of 28 and pO2 of 180, bicarb is 25.2, saturation 99.9. Vent setting, AC 14, tidal volume 350, and FiO2 50% and PEEP of 5. Sodium 146, potassium 3.9, chloride 116, CO2 of 24, BUN 76, creatinine is 2, glucose 130, calcium is 9, phosphorus 4.1, magnesium 2.6. Total bili 0.6, AST 471, ALT 427, alkaline phosphatase is 108, CPK 169 and CK-MB 14.5. Total protein 4.5, albumin is 2.2. Vancomycin random level is 20.7 and stool for occult blood is positive. ASSESSMENT AND PLAN: In summary, Mrs. Gonzalez is a 67-year-old elderly, very thin-built, cachectic [place] female with a history of hypertension, coronary artery disease, status post myocardial infarction, status post stent placement, cerebrovascular accident with right-sided weakness and dysarthria, status post hypernatremia, status post acute renal failure, status post extubation recently with radiological evidence of metastatic cancer of unknown primary, was recently transferred to medical floor and the patient collapsed yesterday, rapid response team was called and the patient was intubated, elevated troponin levels with increasing BUN and creatinine, status post hypotension with intake and output as of this morning, intake is 1576 and output is 305. 1. Oliguric acute renal failure, most likely secondary to intravascular depletion. 2. Acute myocardial infarction. 3. Hypertension. 4. Acute respiratory failure. 5. Metastatic radiological evidence for metastatic bone disease with unknown primary but elevated CA19-9 more than 10,000 and CEA more than 2000. PLAN: Rule out pancreatic cancer, rule out colon cancer. Continue anticoagulation as per Cardiology and follow up with Hematology/Oncology and transfuse as needed to keep hemoglobin about 10. Overall prognosis is very poor. Consider gentle IV hydration of normal saline at 70 mL/hour at this time. Thank you for allowing me to participate in your patient's care. Jose Angel Adams MD
[2018-04-24 05:33] LABS: ABG ALLEN TEST POS; ARTERIAL BLOOD GAS HCO3 23.9 mmol/L (21-28); ARTERIAL BLOOD GAS HEMOGLOBIN 9.9 g/dL (11.7-17.4); ARTERIAL BLOOD GAS O2 SAT 99.5 % (95-98); ARTERIAL BLOOD GAS PCO2 28 mm/Hg (35-45); ARTERIAL BLOOD GAS PH 7.49 (7.35-7.45); ARTERIAL BLOOD GAS PO2 243 mm/Hg (80-100); ARTERIAL BLOOD GAS TCO2 22.2 mmol/L (22-28)
[2018-04-24 06:10] LABS: BASO # 0.1 K/uL (0.0-0.2); BASO % 0.3 % (0.0-2.0); EOS # 0.1 K/uL (0.0-0.7); EOS % 0.8 % (0.0-4.0); HEMOGLOBIN 11.1 g/dL (11.0-16.0); LYMPH # 0.5 K/uL (1.0-4.3); LYMPH % 2.6 % (20.0-40.0); MEAN CELL VOLUME 95.4 fL (81.0-99.0); MEAN CORPUSCULAR HEMOGLOBIN 31.4 pg (27.0-31.0); MEAN CORPUSCULAR HGB CONC 32.9 g/dL (33.0-37.0); MEAN PLATELET VOLUME 11.3 fL (7.2-11.7); MONO # 0.4 K/uL (0.0-0.8); MONO % 1.9 % (0.0-10.0); NEUT # 17.2 K/uL (1.8-7.0); NEUT % 94.4 % (50.0-75.0); NRBC % 0.8 % (0.0-2.0); PLATELET COUNT 163 K/uL (130-400); RBC 3.53 Mil/uL (3.80-5.20); WHITE BLOOD COUNT 18.3 K/uL (4.8-10.8)
[2018-04-24 06:17] LABS: ALB/GLOB RATIO 1.1 (1.0-2.1); ALBUMIN 2.7 g/dL (3.5-5.0); CALCIUM 8.7 mg/dl (8.6-10.4)
[2018-04-24 06:35] LABS: INR 1.3; PROTHROMBIN TIME 14.2 SECONDS (9.7-12.2)
--- NOTE | 2018-04-24 06:36 | CP.PCM.PN ---
Subjective - Date & Time of Evaluation Date of Evaluation: 04/24/18 Time of Evaluation: 06:30 - Subjective Subjective: Anton Alegre D.O. PGY-3, Internal Medicine Resident, Endocrinology Progress Note 67 year old female with a PMH of HTN, HLD, anxiety, CVA with residual L sided weakness, COPD, and CAD s/p stenting who presented in respiratory distress, now undergoing evaluation for possible thyroid and/or pancreatic CA. Endocrinology was consulted for the multinodular thyroid gland. Patient was seen and examined at bedside in the ICU. Was made DNR last night. at bedside. Objective - Vital Signs/Intake and Output Vital Signs (last 24 hours): Temp Pulse Resp BP Pulse Ox 98.0 F 98 H 21 153/97 H 100 04/24/18 04:00 04/24/18 05:13 04/24/18 05:13 04/24/18 05:13 04/24/18 05:13 Intake and Output: 04/23/18 04/24/18 18:59 06:59 Intake Total 2933.8 496.8 Output Total 147 580 Balance 2786.8 -83.2 - Medications Medications: Current Medications Acetaminophen (Tylenol 650mg/20.3ml Solution Ud) 650 mg PO Q4H PRN PRN Reason: Temperature Fever >100.4 F Last Admin: 04/23/18 11:44 Dose: 650 mg Albuterol/Ipratropium (Duoneb 3 Mg/0.5 Mg (3 Ml) Ud) 3 ml INH RQ6 [facility] Last Admin: 04/24/18 01:20 Dose: 3 ml Apixaban (Eliquis) 2.5 mg PO BID [facility] Last Admin: 04/21/18 10:29 Dose: Not Given Aspirin (Aspirin Chewable) 81 mg PO DAILY [facility] Last Admin: 04/23/18 10:05 Dose: 81 mg Clopidogrel Bisulfate (Plavix) 75 mg PO DAILY [facility] Last Admin: 04/23/18 10:06 Dose: 75 mg Ferrous Sulfate (Feosol Liq) 300 mg PO TID [facility] Last Admin: 04/22/18 10:54 Dose: 300 mg Fluconazole (Diflucan Iv 200 Mg/100 Ml Ns) 100 mls @ 100 mls/hr IVPB Q24H [facility]; Protocol Last Admin: 04/23/18 17:40 Dose: 100 mls/hr Vancomycin/Sodium Chloride (Vancomycin 1 Gm/Ns 200 Ml) 1 gm in 200 mls @ 133.333 mls/hr IVPB Q12H [facility]; Protocol Stop: 04/27/18 22:01 Last Admin: 04/22/18 22:26 Dose: 133.333 mls/hr Heparin Sodium/Sodium Chloride (Heparin 41105 Units/250ml 1/2 Normal Saline) 25,000 units in 250 mls @ 3.919 mls/hr IV .Q24H PRN; Protocol PRN Reason: ADJUST RATE PER PROTOCOL Last Admin: 04/22/18 16:42 Dose: 12 units/kg/hr, 3.919 mls/hr Piperacillin Sod/Tazobactam (Sod 2.25 gm/ Sodium Chloride) 100 mls @ 100 mls/hr IVPB Q8H [facility]; Protocol Last Admin: 04/23/18 23:54 Dose: 100 mls/hr Insulin Aspart (Novolog) 0 unit SC Q6H [facility]; Protocol Last Admin: 04/24/18 00:14 Dose: Not Given Levothyroxine Sodium (Synthroid) 100 mcg IVP DAILY [facility] Last Admin: 04/23/18 10:52 Dose: 100 mcg Multivitamins (Hexavitamin) 1 tab PO DAILY [facility] Last Admin: 04/23/18 10:04 Dose: 1 tab Pantoprazole Sodium (Protonix Inj) 40 mg IVP Q12H [facility] Last Admin: 04/24/18 02:45 Dose: 40 mg Rosuvastatin Calcium (Crestor) 5 mg PO HS [facility] Last Admin: 04/23/18 22:05 Dose: 5 mg Vitamin A (Vitamin A & D Oint Ud Foilpak) 0.5 ea TOP Q4 PRN PRN Reason: Dry mouth Last Admin: 04/23/18 15:56 Dose: 0.5 ea - Labs Labs: 04/24/18 05:59 04/24/18 05:55 PT 14.8 SECONDS (9.7-12.2) H 04/22/18 15:56 INR 1.4 04/22/18 15:56 APTT 61 SECONDS (21-34) H D 04/23/18 05:55 - Constitutional Appears: Cachectic, Chronically Ill - Head Exam Head Exam: NORMOCEPHALIC - Eye Exam Eye Exam: EOMI. absent: Scleral icterus - ENT Exam ENT Exam: intubated - Respiratory Exam Respiratory Exam: Coarse, absent: Wheezes - Cardiovascular Exam Cardiovascular Exam: +S1, +S2 - GI/Abdominal Exam GI & Abdominal Exam: Soft, non-distended - Extremities Exam Extremities Exam: absent: Pedal Edema - Neurological Exam Neurological Exam: off sedation, not awake - Skin Skin Exam: Dry, Warm Assessment and Plan - Assessment and Plan (Free Text) Assessment: 67 year old female with a PMH of HTN, HLD, anxiety, CVA with residual L sided weakness, COPD, and CAD s/p stenting who presented in respiratory distress, now undergoing evaluation for possible thyroid and/or pancreatic CA. Endocrinology was consulted for the multinodular thyroid gland. Hospital course complicated by respiratory distress, now with NSTEMI and worsening renal function. Plan: 1. Multinodular thyroid disease/hypothyroidism 2. 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 Respiratory distress requiring intubation 4. NSTEMI 5. DEVIN TSH within normal limits, T4 low Did miss 04/22 dose For now will continue with levothyroxine 100mcg IVP Overall very poor prognosis, patient is very ill BG 112-211 last 24 hours, has not required coverage Patient was seen and examined and case to be discussed with attending physician Dr. Erazo.
[2018-04-24] MEDS: Piperacillin/Tazobact 2.25 GM in Sodium Chloride 100 ML IVPB SCH (08:12)
--- NOTE | 2018-04-24 08:29 | RAD ---
Date of service: 04/24/2018 HISTORY: intubated COMPARISON: 04/23/2018 FINDINGS: Endotracheal tube terminates in the mid trachea. The nasogastric tube terminates in the stomach. LUNGS: The lungs are well inflated. There is moderate pulmonary venous congestion. No focal consolidation PLEURA: No pleural effusions or pneumothorax. CARDIOVASCULAR: Persistent mild cardiomegaly. There are aortic atherosclerotic calcifications present. OSSEOUS STRUCTURES: Within normal limits for the patient's age. VISUALIZED UPPER ABDOMEN: Normal. OTHER FINDINGS: None. IMPRESSION: Stable position of support tubes. No significant interval change.
--- NOTE | 2018-04-24 09:03 | CP.CCUPN ---
<Gini Montano - Last Filed: 04/24/18 09:51> CCU Subjective - Physician Review Subjective (Free Text): Gini Montano DO, PGY-2: ICU Progress Note Patient was seen and examined at bedside. Patient is off of all sedation. She is not responsive. She received two units of PRBCs yesterday with adequate response. She is GCS 0. She has corneal reflex and gag reflex. 04/24/18 09:03 04/24/18 09:13 CCU Objective - Vital Signs / Intake & Output Vital Signs (Last 4 hours): Vital Signs Pulse Resp BP Pulse Ox 04/24/18 06:32 93 H 22 164/99 H 100 04/24/18 05:13 98 H 21 153/97 H 100 Intake and Output (Last 8hrs): Intake & Output 04/23/18 04/24/18 04/24/18 22:59 06:59 14:59 Intake Total 1060.7 371.2 43.9 Output Total 285 400 0 Balance 775.7 -28.8 43.9 Weight 73 lb 9.6 oz Intake: Intake, IV Amount 653.7 131.2 3.9 Left Hand 31.2 31.2 3.9 Left Wrist 392.5 100 Right Forearm 230 Tube Feeding 130 240 40 Blood Product 277 Apheresis Rbc Cp2d As3 Lr 277 1st Unit [id number] Output: Urine 285 400 0 Urethral (Walsh) 285 400 0 - Physical Exam Head: Positive for: Atraumatic, Normocephalic Pupils: Positive for: PERRL Extroacular Muscles: Positive for: EOMI Conjunctiva: Positive for: Normal Mouth: Positive for: Moist Mucous Membranes Neck: Positive for: Normal Range of Motion Respiratory/Chest: Positive for: Good Air Exchange, Decreased Breath Sounds Abdomen: Positive for: Normal Bowel Sounds Upper Extremity: Positive for: Other (limited movement left upper extremity) Lower Extremity: Positive for: Edema Skin: Positive for: Warm, Normal Color Psychiatric: Positive for: Alert, Oriented x 3 - Medications Active Medications: Active Medications Generic Name Dose Route Start Last Admin Trade Name Freq PRN Reason Stop Dose Admin Acetaminophen 650 mg 04/23/18 11:35 04/23/18 11:44 Tylenol 650mg/20.3ml Solution Ud PO 650 mg Q4H PRN Administration Temperature Fever >100.4 F Albuterol/Ipratropium 3 ml 04/19/18 20:00 04/24/18 07:39 Duoneb 3 Mg/0.5 Mg (3 Ml) Ud INH 3 ml RQ6 RODRIGO Administration Apixaban 2.5 mg 04/12/18 18:00 04/21/18 10:29 Eliquis PO Not Given BID RODRIGO Aspirin 81 mg 04/23/18 10:00 04/23/18 10:05 Aspirin Chewable PO 81 mg DAILY RODRIGO Administration Clopidogrel Bisulfate 75 mg 04/23/18 10:00 04/23/18 10:06 Plavix PO 75 mg DAILY RODRIGO Administration Ferrous Sulfate 300 mg 04/19/18 19:00 04/22/18 10:54 Feosol Liq PO 300 mg TID RODRIGO Administration Fluconazole 100 mls @ 100 mls/hr 04/14/18 18:30 04/23/18 17:40 Diflucan Iv 200 Mg/100 Ml Ns IVPB 100 mls/hr Q24H RODRIGO Administration Protocol Vancomycin/Sodium Chloride 1 gm in 200 mls @ 133.333 mls/hr 04/22/18 22:00 04/22/18 22:26 Vancomycin 1 Gm/Ns 200 Ml IVPB 04/27/18 22:01 133.333 mls/hr Q12H RODRIGO Administration Protocol Heparin Sodium/Sodium Chloride 25,000 units in 250 mls @ 3.919 mls/hr 04/22/18 16:17 04/22/18 16:42 Heparin 84557 Units/250ml 1/2 Normal Saline IV 12 units/kg/hr .Q24H PRN 3.919 mls/hr ADJUST RATE PER PROTOCOL Administration Protocol 12 UNITS/KG/HR Piperacillin Sod/Tazobactam 100 mls @ 100 mls/hr 04/23/18 08:00 04/24/18 08:12 Sod 2.25 gm/ Sodium Chloride IVPB 100 mls/hr Q8H RODRIGO Administration Protocol Potassium Chloride 20 meq in 100 mls @ 50 mls/hr 04/24/18 07:00 04/24/18 08:10 Potassium Chloride 20 Meq/100 Ml IVPB 04/24/18 10:59 50 mls/hr Q2H RODRIGO Administration Insulin Aspart 0 unit 04/12/18 18:00 04/24/18 08:13 Novolog SC Not Given Q6H [facility] Protocol Levothyroxine Sodium 100 mcg 04/22/18 10:00 04/23/18 10:52 Synthroid IVP 100 mcg DAILY RODRIGO Administration Multivitamins 1 tab 04/18/18 10:00 04/23/18 10:04 Hexavitamin PO 1 tab DAILY RODRIGO Administration Pantoprazole Sodium 40 mg 04/23/18 14:45 04/24/18 02:45 Protonix Inj IVP 40 mg Q12H RODRIGO Administration Potassium Chloride 40 meq 04/24/18 14:00 Potassium Chloride Oral Soln PO 04/24/18 22:01 Q8 RODRIGO Rosuvastatin Calcium 5 mg 04/10/18 22:00 04/23/18 22:05 Crestor PO 5 mg HS RODRIGO Administration Sucralfate 1 gm 04/24/18 10:00 Carafate Oral Susp PO TID RODRIGO Vitamin A 0.5 ea 04/10/18 14:21 04/23/18 15:56 Vitamin A & D Oint Ud Foilpak TOP 0.5 ea Q4 PRN Administration Dry mouth - Patient Studies Lab Studies: Microbiology Studies 04/22/18 15:36 Urine Culture - Preliminary Urine,Catheterized Enterococcus Faecium 04/22/18 15:36 MRSA Culture (Admit) - Final Naris MRSA NOT DETECTED 04/22/18 14:30 Blood Culture - Preliminary Blood NO GROWTH AFTER 24 HOURS 04/22/18 14:00 Blood Culture - Preliminary Blood NO GROWTH AFTER 24 HOURS Lab Studies 04/24/18 04/24/18 04/24/18 Range/Units 05:59 05:55 05:55 WBC 18.3 H (4.8-10.8) K/uL RBC 3.53 L (3.80-5.20) Mil/uL Hgb 11.1 D (11.0-16.0) g/dL Hct 33.6 L (34.0-47.0) % MCV 95.4 D (81.0-99.0) fL MCH 31.4 H (27.0-31.0) pg MCHC 32.9 L (33.0-37.0) g/dL RDW 17.0 H (11.5-14.5) % Plt Count 163 (130-400) K/uL MPV 11.3 (7.2-11.7) fL Neut % (Auto) 94.4 H (50.0-75.0) % Lymph % (Auto) 2.6 L (20.0-40.0) % [place] % (Auto) 1.9 (0.0-10.0) % Eos % (Auto) 0.8 (0.0-4.0) % Baso % (Auto) 0.3 (0.0-2.0) % Neut # (Auto) 17.2 H (1.8-7.0) K/uL Lymph # (Auto) 0.5 L (1.0-4.3) K/uL [place] # (Auto) 0.4 (0.0-0.8) K/uL Eos # (Auto) 0.1 (0.0-0.7) K/uL Baso # (Auto) 0.1 (0.0-0.2) K/uL PT 14.2 H (9.7-12.2) SECONDS INR 1.3 APTT 67 H D (21-34) SECONDS Puncture Site pCO2 (35-45) mm/Hg pO2 (80-100) mm/Hg HCO3 (21-28) mmol/L ABG pH (7.35-7.45) ABG Total CO2 (22-28) mmol/L ABG O2 Saturation (95-98) % ABG Base Excess (-2.0-3.0) mmol/L ABG Hemoglobin (11.7-17.4) g/dL ABG Carboxyhemoglobin (0.5-1.5) % POC ABG HHb (Measured) (0.0-5.0) % ABG Methemoglobin (0.0-3.0) % Caesar Test ABG Potassium (3.6-5.2) mmol/L A-a O2 Difference mm/Hg Respiratory Index Hgb O2 Saturation (95.0-98.0) % Sodium 150 H (132-148) mmol/l Chloride 120 H (98-107) mmol/L Glucose (65-105) mg/dl Lactate (0.7-2.1) mmol/L Vent Mode Mechanical Rate FiO2 % Tidal Volume PEEP Pressure Support CPAP Potassium 3.3 L (3.6-5.2) mmol/L Carbon Dioxide 23 (22-30) mmol/L Anion Gap 11 (10-20) BUN 87 H (7-17) mg/dL Creatinine 2.1 H (0.7-1.2) mg/dL Est GFR ( Amer) 28 Est GFR (Non-Af Amer) 23 POC Glucose (mg/dL) (65-110) mg/dL Random Glucose 195 H D (65-105) mg/dL Calcium 8.7 (8.6-10.4) mg/dl Phosphorus 3.3 (2.5-4.5) mg/dL Magnesium 2.6 H (1.6-2.3) mg/dL Total Bilirubin 1.1 (0.2-1.3) mg/dL AST 679 H D (14-36) U/L ALT 1180 H (9-52) U/L Alkaline Phosphatase 124 (38-126) U/L Total Protein 5.0 L (6.3-8.3) g/dL Albumin 2.7 L D (3.5-5.0) g/dL Globulin 2.4 (2.2-3.9) gm/dL Albumin/Globulin Ratio 1.1 (1.0-2.1) Thyroxine (T4) 4.32 L (5.5-11.0) ug/dL TSH 3rd Generation 0.59 (0.46-4.68) mIU/L Arterial Blood Potassium (3.6-5.2) mmol/L Stool Occult Blood (NEGATIVE) Random Vancomycin ug/mL Blood Type Antibody Screen 04/24/18 04/24/18 04/23/18 Range/Units 05:15 00:06 17:28 WBC (4.8-10.8) K/uL RBC (3.80-5.20) Mil/uL Hgb (11.0-16.0) g/dL Hct (34.0-47.0) % MCV (81.0-99.0) fL MCH (27.0-31.0) pg MCHC (33.0-37.0) g/dL RDW (11.5-14.5) % Plt Count (130-400) K/uL MPV (7.2-11.7) fL Neut % (Auto) (50.0-75.0) % Lymph % (Auto) (20.0-40.0) % [place] % (Auto) (0.0-10.0) % Eos % (Auto) (0.0-4.0) % Baso % (Auto) (0.0-2.0) % Neut # (Auto) (1.8-7.0) K/uL Lymph # (Auto) (1.0-4.3) K/uL [place] # (Auto) (0.0-0.8) K/uL Eos # (Auto) (0.0-0.7) K/uL Baso # (Auto) (0.0-0.2) K/uL PT (9.7-12.2) SECONDS INR APTT (21-34) SECONDS Puncture Site Rr pCO2 28 L (35-45) mm/Hg pO2 243 H (80-100) mm/Hg HCO3 23.9 (21-28) mmol/L ABG pH 7.49 H (7.35-7.45) ABG Total CO2 22.2 (22-28) mmol/L ABG O2 Saturation 99.5 H (95-98) % ABG Base Excess -1.3 (-2.0-3.0) mmol/L ABG Hemoglobin 9.9 L (11.7-17.4) g/dL ABG Carboxyhemoglobin 1.4 (0.5-1.5) % POC ABG HHb (Measured) 0.5 (0.0-5.0) % ABG Methemoglobin 1.1 (0.0-3.0) % Caesar Test Pos ABG Potassium (3.6-5.2) mmol/L A-a O2 Difference 79.0 mm/Hg Respiratory Index 0.3 Hgb O2 Saturation 97.0 (95.0-98.0) % Sodium (132-148) mmol/l Chloride (98-107) mmol/L Glucose (65-105) mg/dl Lactate (0.7-2.1) mmol/L Vent Mode Prvc Mechanical Rate 14 FiO2 50.0 % Tidal Volume 350 PEEP 5 Pressure Support CPAP Potassium (3.6-5.2) mmol/L Carbon Dioxide (22-30) mmol/L Anion Gap (10-20) BUN (7-17) mg/dL Creatinine (0.7-1.2) mg/dL Est GFR ( Amer) Est GFR (Non-Af Amer) POC Glucose (mg/dL) 165 H 134 H (65-110) mg/dL Random Glucose (65-105) mg/dL Calcium (8.6-10.4) mg/dl Phosphorus (2.5-4.5) mg/dL Magnesium (1.6-2.3) mg/dL Total Bilirubin (0.2-1.3) mg/dL AST (14-36) U/L ALT (9-52) U/L Alkaline Phosphatase (38-126) U/L Total Protein (6.3-8.3) g/dL Albumin (3.5-5.0) g/dL Globulin (2.2-3.9) gm/dL Albumin/Globulin Ratio (1.0-2.1) Thyroxine (T4) (5.5-11.0) ug/dL TSH 3rd Generation (0.46-4.68) mIU/L Arterial Blood Potassium (3.6-5.2) mmol/L Stool Occult Blood (NEGATIVE) Random Vancomycin ug/mL Blood Type Antibody Screen 04/23/18 04/23/18 04/23/18 Range/Units 14:29 14:00 11:17 WBC (4.8-10.8) K/uL RBC (3.80-5.20) Mil/uL Hgb (11.0-16.0) g/dL Hct (34.0-47.0) % MCV (81.0-99.0) fL MCH (27.0-31.0) pg MCHC (33.0-37.0) g/dL RDW (11.5-14.5) % Plt Count (130-400) K/uL MPV (7.2-11.7) fL Neut % (Auto) (50.0-75.0) % Lymph % (Auto) (20.0-40.0) % [place] % (Auto) (0.0-10.0) % Eos % (Auto) (0.0-4.0) % Baso % (Auto) (0.0-2.0) % Neut # (Auto) (1.8-7.0) K/uL Lymph # (Auto) (1.0-4.3) K/uL [place] # (Auto) (0.0-0.8) K/uL Eos # (Auto) (0.0-0.7) K/uL Baso # (Auto) (0.0-0.2) K/uL PT (9.7-12.2) SECONDS INR APTT (21-34) SECONDS Puncture Site Lf pCO2 24 L (35-45) mm/Hg pO2 499 H (80-100) mm/Hg HCO3 24.3 (21-28) mmol/L ABG pH 7.53 H (7.35-7.45) ABG Total CO2 20.8 L (22-28) mmol/L ABG O2 Saturation 99.3 H (95-98) % ABG Base Excess -0.9 (-2.0-3.0) mmol/L ABG Hemoglobin (11.7-17.4) g/dL ABG Carboxyhemoglobin (0.5-1.5) % POC ABG HHb (Measured) (0.0-5.0) % ABG Methemoglobin (0.0-3.0) % Caesar Test Na ABG Potassium 3.5 L (3.6-5.2) mmol/L A-a O2 Difference 184.0 mm/Hg Respiratory Index 0.4 Hgb O2 Saturation (95.0-98.0) % Sodium 151.0 H (132-148) mmol/l Chloride 126.0 H (98-107) mmol/L Glucose 157 H (65-105) mg/dl Lactate 1.7 (0.7-2.1) mmol/L Vent Mode Mechanical Rate FiO2 100.0 % Tidal Volume PEEP Pressure Support 15 CPAP 5 Potassium (3.6-5.2) mmol/L Carbon Dioxide (22-30) mmol/L Anion Gap (10-20) BUN (7-17) mg/dL Creatinine (0.7-1.2) mg/dL Est GFR ( Amer) Est GFR (Non-Af Amer) POC Glucose (mg/dL) 126 H (65-110) mg/dL Random Glucose (65-105) mg/dL Calcium (8.6-10.4) mg/dl Phosphorus (2.5-4.5) mg/dL Magnesium (1.6-2.3) mg/dL Total Bilirubin (0.2-1.3) mg/dL AST (14-36) U/L ALT (9-52) U/L Alkaline Phosphatase (38-126) U/L Total Protein (6.3-8.3) g/dL Albumin (3.5-5.0) g/dL Globulin (2.2-3.9) gm/dL Albumin/Globulin Ratio (1.0-2.1) Thyroxine (T4) (5.5-11.0) ug/dL TSH 3rd Generation (0.46-4.68) mIU/L Arterial Blood Potassium 3.5 L (3.6-5.2) mmol/L Stool Occult Blood Positive H (NEGATIVE) Random Vancomycin ug/mL Blood Type Antibody Screen 04/23/18 04/22/18 Range/Units 08:50 15:56 WBC (4.8-10.8) K/uL RBC (3.80-5.20) Mil/uL Hgb (11.0-16.0) g/dL Hct (34.0-47.0) % MCV (81.0-99.0) fL MCH (27.0-31.0) pg MCHC (33.0-37.0) g/dL RDW (11.5-14.5) % Plt Count (130-400) K/uL MPV (7.2-11.7) fL Neut % (Auto) (50.0-75.0) % Lymph % (Auto) (20.0-40.0) % [place] % (Auto) (0.0-10.0) % Eos % (Auto) (0.0-4.0) % Baso % (Auto) (0.0-2.0) % Neut # (Auto) (1.8-7.0) K/uL Lymph # (Auto) (1.0-4.3) K/uL [place] # (Auto) (0.0-0.8) K/uL Eos # (Auto) (0.0-0.7) K/uL Baso # (Auto) (0.0-0.2) K/uL PT (9.7-12.2) SECONDS INR APTT (21-34) SECONDS Puncture Site pCO2 (35-45) mm/Hg pO2 (80-100) mm/Hg HCO3 (21-28) mmol/L ABG pH (7.35-7.45) ABG Total CO2 (22-28) mmol/L ABG O2 Saturation (95-98) % ABG Base Excess (-2.0-3.0) mmol/L ABG Hemoglobin (11.7-17.4) g/dL ABG Carboxyhemoglobin (0.5-1.5) % POC ABG HHb (Measured) (0.0-5.0) % ABG Methemoglobin (0.0-3.0) % Caesar Test ABG Potassium (3.6-5.2) mmol/L A-a O2 Difference mm/Hg Respiratory Index Hgb O2 Saturation (95.0-98.0) % Sodium (132-148) mmol/l Chloride (98-107) mmol/L Glucose (65-105) mg/dl Lactate (0.7-2.1) mmol/L Vent Mode Mechanical Rate FiO2 % Tidal Volume PEEP Pressure Support CPAP Potassium (3.6-5.2) mmol/L Carbon Dioxide (22-30) mmol/L Anion Gap (10-20) BUN (7-17) mg/dL Creatinine (0.7-1.2) mg/dL Est GFR ( Amer) Est GFR (Non-Af Amer) POC Glucose (mg/dL) (65-110) mg/dL Random Glucose (65-105) mg/dL Calcium (8.6-10.4) mg/dl Phosphorus (2.5-4.5) mg/dL Magnesium (1.6-2.3) mg/dL Total Bilirubin (0.2-1.3) mg/dL AST (14-36) U/L ALT (9-52) U/L Alkaline Phosphatase (38-126) U/L Total Protein (6.3-8.3) g/dL Albumin (3.5-5.0) g/dL Globulin (2.2-3.9) gm/dL Albumin/Globulin Ratio (1.0-2.1) Thyroxine (T4) (5.5-11.0) ug/dL TSH 3rd Generation (0.46-4.68) mIU/L Arterial Blood Potassium (3.6-5.2) mmol/L Stool Occult Blood (NEGATIVE) Random Vancomycin 20.7 ug/mL Blood Type O POSITIVE Antibody Screen Negative Laboratory Results - last 24 hr 04/22/18 04/23/18 04/23/18 15:56 08:50 11:17 WBC RBC Hgb Hct MCV MCH MCHC RDW Plt Count MPV Neut % (Auto) Lymph % (Auto) [place] % (Auto) Eos % (Auto) Baso % (Auto) Neut # (Auto) Lymph # (Auto) [place] # (Auto) Eos # (Auto) Baso # (Auto) PT INR APTT Puncture Site pCO2 pO2 HCO3 ABG pH ABG Total CO2 ABG O2 Saturation ABG Base Excess ABG Hemoglobin ABG Carboxyhemoglobin POC ABG HHb (Measured) ABG Methemoglobin Caesar Test ABG Potassium A-a O2 Difference Respiratory Index Hgb O2 Saturation Sodium Chloride Glucose Lactate Vent Mode Mechanical Rate FiO2 Tidal Volume PEEP Pressure Support CPAP Potassium Carbon Dioxide Anion Gap BUN Creatinine Est GFR ( Amer) Est GFR (Non-Af Amer) POC Glucose (mg/dL) 126 H Random Glucose Calcium Phosphorus Magnesium Total Bilirubin AST ALT Alkaline Phosphatase Total Protein Albumin Globulin Albumin/Globulin Ratio Thyroxine (T4) TSH 3rd Generation Arterial Blood Potassium Stool Occult Blood Random Vancomycin 20.7 Blood Type O POSITIVE Antibody Screen Negative 04/23/18 04/23/18 04/23/18 14:00 14:29 17:28 WBC RBC Hgb Hct MCV MCH MCHC RDW Plt Count MPV Neut % (Auto) Lymph % (Auto) [place] % (Auto) Eos % (Auto) Baso % (Auto) Neut # (Auto) Lymph # (Auto) [place] # (Auto) Eos # (Auto) Baso # (Auto) PT INR APTT Puncture Site Lf pCO2 24 L pO2 499 H HCO3 24.3 ABG pH 7.53 H ABG Total CO2 20.8 L ABG O2 Saturation 99.3 H ABG Base Excess -0.9 ABG Hemoglobin ABG Carboxyhemoglobin POC ABG HHb (Measured) ABG Methemoglobin Caesar Test Na ABG Potassium 3.5 L A-a O2 Difference 184.0 Respiratory Index 0.4 Hgb O2 Saturation Sodium 151.0 H Chloride 126.0 H Glucose 157 H Lactate 1.7 Vent Mode Mechanical Rate FiO2 100.0 Tidal Volume PEEP Pressure Support 15 CPAP 5 Potassium Carbon Dioxide Anion Gap BUN Creatinine Est GFR ( Amer) Est GFR (Non-Af Amer) POC Glucose (mg/dL) 134 H Random Glucose Calcium Phosphorus Magnesium Total Bilirubin AST ALT Alkaline Phosphatase Total Protein Albumin Globulin Albumin/Globulin Ratio Thyroxine (T4) TSH 3rd Generation Arterial Blood Potassium 3.5 L Stool Occult Blood Positive H Random Vancomycin Blood Type Antibody Screen 04/24/18 04/24/18 04/24/18 00:06 05:15 05:55 WBC RBC Hgb Hct MCV MCH MCHC RDW Plt Count MPV Neut % (Auto) Lymph % (Auto) [place] % (Auto) Eos % (Auto) Baso % (Auto) Neut # (Auto) Lymph # (Auto) [place] # (Auto) Eos # (Auto) Baso # (Auto) PT INR APTT Puncture Site Rr pCO2 28 L pO2 243 H HCO3 23.9 ABG pH 7.49 H ABG Total CO2 22.2 ABG O2 Saturation 99.5 H ABG Base Excess -1.3 ABG Hemoglobin 9.9 L ABG Carboxyhemoglobin 1.4 POC ABG HHb (Measured) 0.5 ABG Methemoglobin 1.1 Caesar Test Pos ABG Potassium A-a O2 Difference 79.0 Respiratory Index 0.3 Hgb O2 Saturation 97.0 Sodium 150 H Chloride 120 H Glucose Lactate Vent Mode Prvc Mechanical Rate 14 FiO2 50.0 Tidal Volume 350 PEEP 5 Pressure Support CPAP Potassium 3.3 L Carbon Dioxide 23 Anion Gap 11 BUN 87 H Creatinine 2.1 H Est GFR ( Amer) 28 Est GFR (Non-Af Amer) 23 POC Glucose (mg/dL) 165 H Random Glucose 195 H D Calcium 8.7 Phosphorus 3.3 Magnesium 2.6 H Total Bilirubin 1.1 AST 679 H D ALT 1180 H Alkaline Phosphatase 124 Total Protein 5.0 L Albumin 2.7 L D Globulin 2.4 Albumin/Globulin Ratio 1.1 Thyroxine (T4) 4.32 L TSH 3rd Generation 0.59 Arterial Blood Potassium Stool Occult Blood Random Vancomycin Blood Type Antibody Screen 04/24/18 04/24/18 05:55 05:59 WBC 18.3 H RBC 3.53 L Hgb 11.1 D Hct 33.6 L MCV 95.4 D MCH 31.4 H MCHC 32.9 L RDW 17.0 H Plt Count 163 MPV 11.3 Neut % (Auto) 94.4 H Lymph % (Auto) 2.6 L [place] % (Auto) 1.9 Eos % (Auto) 0.8 Baso % (Auto) 0.3 Neut # (Auto) 17.2 H Lymph # (Auto) 0.5 L [place] # (Auto) 0.4 Eos # (Auto) 0.1 Baso # (Auto) 0.1 PT 14.2 H INR 1.3 APTT 67 H D Puncture Site pCO2 pO2 HCO3 ABG pH ABG Total CO2 ABG O2 Saturation ABG Base Excess ABG Hemoglobin ABG Carboxyhemoglobin POC ABG HHb (Measured) ABG Methemoglobin Caesra Test ABG Potassium A-a O2 Difference Respiratory Index Hgb O2 Saturation Sodium Chloride Glucose Lactate Vent Mode Mechanical Rate FiO2 Tidal Volume PEEP Pressure Support CPAP Potassium Carbon Dioxide Anion Gap BUN Creatinine Est GFR ( Amer) Est GFR (Non-Af Amer) POC Glucose (mg/dL) Random Glucose Calcium Phosphorus Magnesium Total Bilirubin AST ALT Alkaline Phosphatase Total Protein Albumin Globulin Albumin/Globulin Ratio Thyroxine (T4) TSH 3rd Generation Arterial Blood Potassium Stool Occult Blood Random Vancomycin Blood Type Antibody Screen Radiology Impressions: Radiology Impressions Chest X-Ray 04/24/18 06:00 IMPRESSION: Stable position of support tubes. No significant interval change. 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 During the course of her current admission she was diagnosed with an advanced cancer of unknown primary and found to have a stroke affecting her speech and swallow. Due to the patient's speech and swallow impairment, she has been getting nutrition via NG tube with the plan on inserting a PEG tube this Friday. ICU was consulted after the patient was found to be in respiratory distress and intubated on the medical floor on 04/22/2018. She was found to have a troponin of 3.4 and started on a heparin drip. EKG did show new changes. Cardiac enzymes q6-8h showed an uptrend. Patient was started on Broad spectrum antibiotics 2/21: Patient troponins trend up. Hgb dropped from 9 to 7.4. Two units of PRBCS ordered to transfused. Patient is not responsive despite being off of any sedation. Family was informed patient is in critical condition. Goals of care were discussed. Overnight, patient became DNR. We will continue to monitor the patient closely in the ICU. 04/24: Patient GCS 0. She is receiving heparin ggt per ACS protocol. urine growing VRE; ID consulted. Goals of care to be discussed. Neurology HOB 30 degrees GCS 0 Corneal and gag reflex present Cardiology - aspirin 81 mg - Plavix 75 daily - Heparin ggt - Cardiology on board Pulmonology - ABG consistent with respiratory alkalosis - Ventilator settings AC TV 350, PEEP 5 mm Hg, rate of 14, FIO2 of 50 Endocrinology - Levothyroxine 100 mg IVP Heme Hgb 7.4 to 11.1 s/p 2 units of PRBCs Nephrology - BUN/Cr elevated due unresolving DEVIN secondary to NSTEMI and Upper GI bleed ID - Fluconazole for yeast in urine - Urine culture positive E. faecalis sensitive to Linezolid; Infectious disease, Dr. Land consulted GI - Upper GI bleed - Protonix 40 mg q12h - GI is following - No plan for PEG tube Disposition: Guarded, goals of care being discussed Case was reviewed and discussed with attending physician, Dr. Eddie Willis Case was reviewed and discussed with attending physician <Eddie Willis M - Last Filed: 04/25/18 14:52> CCU Objective - Vital Signs / Intake & Output Vital Signs (Last 4 hours): Vital Signs Temp Pulse Resp BP Pulse Ox 04/25/18 14:00 85 18 100 04/25/18 13:32 83 18 128/85 100 04/25/18 13:00 75 15 100 04/25/18 12:32 77 15 92/60 L 100 04/25/18 12:00 97.5 F L 79 16 100 04/25/18 11:32 79 16 85/55 L 100 04/25/18 11:00 92 H 20 100 Intake and Output (Last 8hrs): Intake & Output 04/24/18 04/25/18 04/25/18 22:59 06:59 14:59 Intake Total 1061.2 1011.2 1353.2 Output Total 300 900 Balance 761.2 111.2 1353.2 Weight 76 lb 9.6 oz Intake: IV 250 Intake, IV Amount 491.2 691.2 883.2 Left Forearm 372 Left Hand 31.2 31.2 31.2 Left Wrist 60 360 480 Right Forearm 400 300 Tube Feeding 320 320 320 Other 150 Output: Urine 300 900 Urine, Voided 300 900 Other: # Bowel Movements 0 - Medications Active Medications: Active Medications Generic Name Dose Route Start Last Admin Trade Name Freq PRN Reason Stop Dose Admin Acetaminophen 650 mg 04/23/18 11:35 04/25/18 05:04 Tylenol 650mg/20.3ml Solution Ud PO 650 mg Q4H PRN Administration Temperature Fever >100.4 F Aspirin 81 mg 04/23/18 10:00 04/25/18 09:06 Aspirin Chewable PO 81 mg DAILY RODRIGO Administration Clopidogrel Bisulfate 75 mg 04/23/18 10:00 04/25/18 09:06 Plavix PO 75 mg DAILY RODRIGO Administration Ferrous Sulfate 300 mg 04/19/18 19:00 04/25/18 13:02 Feosol Liq PO 300 mg TID RODRIGO Administration Fluconazole 100 mls @ 100 mls/hr 04/14/18 18:30 04/24/18 19:00 Diflucan Iv 200 Mg/100 Ml Ns IVPB 100 mls/hr Q24H RODRIGO Administration Protocol Heparin Sodium/Sodium Chloride 25,000 units in 250 mls @ 3.919 mls/hr 04/22/18 16:17 04/24/18 20:52 Heparin 52202 Units/250ml 1/2 Normal Saline IV 12 units/kg/hr .Q24H PRN 3.919 mls/hr ADJUST RATE PER PROTOCOL Administration Protocol 12 UNITS/KG/HR Linezolid 600 mg in 300 mls @ 200 mls/hr 04/24/18 18:00 04/25/18 05:03 Zyvox 600mg/300ml D5w IVPB 200 mls/hr Q12H RODRIGO Administration Protocol Dextrose 1,000 mls @ 60 mls/hr 04/24/18 19:15 04/25/18 12:57 Dextrose 5% In Water 1000 Ml IV 60 mls/hr .L60H06H RODRIGO Administration Sodium Phosphate 15 mmole/ 255 mls @ 50 mls/hr 04/25/18 13:00 04/25/18 13:47 Sodium Chloride IVPB 04/25/18 18:05 50 mls/hr .Q5H6M ONE Administration Insulin Aspart 0 unit 04/12/18 18:00 04/25/18 12:31 Novolog SC Not Given Q6H [facility] Protocol Levothyroxine Sodium 100 mcg 04/22/18 10:00 04/25/18 09:07 Synthroid IVP 100 mcg DAILY RODRIGO Administration Multivitamins 1 tab 04/18/18 10:00 04/25/18 09:06 Hexavitamin PO 1 tab DAILY RODRIGO Administration Pantoprazole Sodium 40 mg 04/23/18 14:45 04/25/18 13:48 Protonix Inj IVP 40 mg Q12H RODRIGO Administration Potassium Phos/Sodium Phos 1 pkt 04/25/18 10:00 04/25/18 13:02 Neutra-Phos PO 04/27/18 10:01 1 pkt TID RODRIGO Administration Rosuvastatin Calcium 5 mg 04/10/18 22:00 04/24/18 22:00 Crestor PO 5 mg HS RODRIGO Administration Sucralfate 1 gm 04/24/18 10:00 04/25/18 13:02 Carafate Oral Susp PO 1 gm TID RODRIGO Administration Vitamin A 0.5 ea 04/10/18 14:21 04/23/18 15:56 Vitamin A & D Oint Ud Foilpak TOP 0.5 ea Q4 PRN Administration Dry mouth - Patient Studies Lab Studies: Microbiology Studies 04/22/18 14:30 Blood Culture - Preliminary Blood NO GROWTH AFTER 48 HOURS 04/22/18 14:00 Blood Culture - Preliminary Blood NO GROWTH AFTER 48 HOURS 04/22/18 15:36 Urine Culture - Final Urine,Catheterized Vancomycin Resistant E.faecium Lab Studies 04/25/18 04/25/18 04/25/18 Range/Units 12:20 06:25 06:25 WBC (4.8-10.8) K/uL RBC (3.80-5.20) Mil/uL Hgb (11.0-16.0) g/dL Hct (34.0-47.0) % MCV (81.0-99.0) fL MCH (27.0-31.0) pg MCHC (33.0-37.0) g/dL RDW (11.5-14.5) % Plt Count (130-400) K/uL MPV (7.2-11.7) fL Neut % (Auto) (50.0-75.0) % Lymph % (Auto) (20.0-40.0) % [place] % (Auto) (0.0-10.0) % Eos % (Auto) (0.0-4.0) % Baso % (Auto) (0.0-2.0) % Neut # (Auto) (1.8-7.0) K/uL Lymph # (Auto) (1.0-4.3) K/uL [place] # (Auto) (0.0-0.8) K/uL Eos # (Auto) (0.0-0.7) K/uL Baso # (Auto) (0.0-0.2) K/uL Neutrophils % (Manual) (50-75) % Band Neutrophils % (0-2) % Lymphocytes % (Manual) (20-40) % Monocytes % (Manual) (0-10) % Eosinophils % (Manual) (0-4) % Metamyelocytes % (0-0) % Platelet Estimate (NORMAL) Large Platelets Polychromasia Hypochromasia (manual) Poikilocytosis (manual Anisocytosis (manual) Schistocytes PT 11.6 (9.7-12.2) SECONDS INR 1.1 APTT 57 H D (21-34) SECONDS Puncture Site pCO2 (35-45) mm/Hg pO2 (80-100) mm/Hg HCO3 (21-28) mmol/L ABG pH (7.35-7.45) ABG Total CO2 (22-28) mmol/L ABG O2 Saturation (95-98) % ABG Base Excess (-2.0-3.0) mmol/L ABG Hemoglobin (11.7-17.4) g/dL ABG Carboxyhemoglobin (0.5-1.5) % POC ABG HHb (Measured) (0.0-5.0) % ABG Methemoglobin (0.0-3.0) % Caesar Test A-a O2 Difference mm/Hg Respiratory Index Hgb O2 Saturation (95.0-98.0) % Vent Mode Mechanical Rate FiO2 % Tidal Volume PEEP Sodium 153 H (132-148) mmol/L Potassium 5.2 (3.6-5.2) mmol/L Chloride 127 H (98-107) mmol/L Carbon Dioxide 25 (22-30) mmol/L Anion Gap 6 L (10-20) BUN 55 H (7-17) mg/dL Creatinine 1.1 (0.7-1.2) mg/dL Est GFR ( Amer) 60 Est GFR (Non-Af Amer) 49 POC Glucose (mg/dL) 170 H (65-110) mg/dL Random Glucose 189 H (65-105) mg/dL Calcium 9.0 (8.6-10.4) mg/dl Phosphorus 1.0 L* (2.5-4.5) mg/dL Magnesium 2.3 (1.6-2.3) mg/dL Total Bilirubin 0.8 (0.2-1.3) mg/dL AST 268 H D (14-36) U/L ALT 905 H D (9-52) U/L Alkaline Phosphatase 124 (38-126) U/L Total Protein 4.9 L (6.3-8.3) g/dL Albumin 2.4 L (3.5-5.0) g/dL Globulin 2.5 (2.2-3.9) gm/dL Albumin/Globulin Ratio 0.9 L (1.0-2.1) 04/25/18 04/25/18 04/25/18 Range/Units 06:25 05:24 00:14 WBC 20.9 H (4.8-10.8) K/uL RBC 3.15 L (3.80-5.20) Mil/uL Hgb 9.8 L (11.0-16.0) g/dL Hct 30.4 L (34.0-47.0) % MCV 96.5 (81.0-99.0) fL MCH 31.2 H (27.0-31.0) pg MCHC 32.3 L (33.0-37.0) g/dL RDW 18.0 H (11.5-14.5) % Plt Count 120 L D (130-400) K/uL MPV 11.5 (7.2-11.7) fL Neut % (Auto) 89.3 H (50.0-75.0) % Lymph % (Auto) 4.5 L (20.0-40.0) % [place] % (Auto) 3.3 (0.0-10.0) % Eos % (Auto) 2.3 (0.0-4.0) % Baso % (Auto) 0.6 (0.0-2.0) % Neut # (Auto) 18.6 H (1.8-7.0) K/uL Lymph # (Auto) 0.9 L (1.0-4.3) K/uL [place] # (Auto) 0.7 (0.0-0.8) K/uL Eos # (Auto) 0.5 (0.0-0.7) K/uL Baso # (Auto) 0.1 (0.0-0.2) K/uL Neutrophils % (Manual) 83 H (50-75) % Band Neutrophils % 5 H (0-2) % Lymphocytes % (Manual) 4 L (20-40) % Monocytes % (Manual) 3 (0-10) % Eosinophils % (Manual) 4 (0-4) % Metamyelocytes % 1 H (0-0) % Platelet Estimate Slightly decreased L (NORMAL) Large Platelets Present Polychromasia Slight Hypochromasia (manual) Slight Poikilocytosis (manual Slight Anisocytosis (manual) Moderate Schistocytes Slight PT (9.7-12.2) SECONDS INR APTT (21-34) SECONDS Puncture Site R rad pCO2 32 L (35-45) mm/Hg pO2 139 H (80-100) mm/Hg HCO3 23.8 (21-28) mmol/L ABG pH 7.45 (7.35-7.45) ABG Total CO2 23.2 (22-28) mmol/L ABG O2 Saturation 99.3 H (95-98) % ABG Base Excess -1.4 (-2.0-3.0) mmol/L ABG Hemoglobin 9.0 L (11.7-17.4) g/dL ABG Carboxyhemoglobin 1.7 H (0.5-1.5) % POC ABG HHb (Measured) 0.7 (0.0-5.0) % ABG Methemoglobin 1.1 (0.0-3.0) % Caesar Test Pos A-a O2 Difference 106.0 mm/Hg Respiratory Index 0.8 Hgb O2 Saturation 96.4 (95.0-98.0) % Vent Mode Prvc Mechanical Rate 14 FiO2 40.0 % Tidal Volume 350 PEEP 5 Sodium (132-148) mmol/L Potassium (3.6-5.2) mmol/L Chloride (98-107) mmol/L Carbon Dioxide (22-30) mmol/L Anion Gap (10-20) BUN (7-17) mg/dL Creatinine (0.7-1.2) mg/dL Est GFR ( Amer) Est GFR (Non-Af Amer) POC Glucose (mg/dL) 172 H (65-110) mg/dL Random Glucose (65-105) mg/dL Calcium (8.6-10.4) mg/dl Phosphorus (2.5-4.5) mg/dL Magnesium (1.6-2.3) mg/dL Total Bilirubin (0.2-1.3) mg/dL AST (14-36) U/L ALT (9-52) U/L Alkaline Phosphatase (38-126) U/L Total Protein (6.3-8.3) g/dL Albumin (3.5-5.0) g/dL Globulin (2.2-3.9) gm/dL Albumin/Globulin Ratio (1.0-2.1) 04/24/18 Range/Units 18:00 WBC (4.8-10.8) K/uL RBC (3.80-5.20) Mil/uL Hgb (11.0-16.0) g/dL Hct (34.0-47.0) % MCV (81.0-99.0) fL MCH (27.0-31.0) pg MCHC (33.0-37.0) g/dL RDW (11.5-14.5) % Plt Count (130-400) K/uL MPV (7.2-11.7) fL Neut % (Auto) (50.0-75.0) % Lymph % (Auto) (20.0-40.0) % [place] % (Auto) (0.0-10.0) % Eos % (Auto) (0.0-4.0) % Baso % (Auto) (0.0-2.0) % Neut # (Auto) (1.8-7.0) K/uL Lymph # (Auto) (1.0-4.3) K/uL [place] # (Auto) (0.0-0.8) K/uL Eos # (Auto) (0.0-0.7) K/uL Baso # (Auto) (0.0-0.2) K/uL Neutrophils % (Manual) (50-75) % Band Neutrophils % (0-2) % Lymphocytes % (Manual) (20-40) % Monocytes % (Manual) (0-10) % Eosinophils % (Manual) (0-4) % Metamyelocytes % (0-0) % Platelet Estimate (NORMAL) Large Platelets Polychromasia Hypochromasia (manual) Poikilocytosis (manual Anisocytosis (manual) Schistocytes PT (9.7-12.2) SECONDS INR APTT (21-34) SECONDS Puncture Site pCO2 (35-45) mm/Hg pO2 (80-100) mm/Hg HCO3 (21-28) mmol/L ABG pH (7.35-7.45) ABG Total CO2 (22-28) mmol/L ABG O2 Saturation (95-98) % ABG Base Excess (-2.0-3.0) mmol/L ABG Hemoglobin (11.7-17.4) g/dL ABG Carboxyhemoglobin (0.5-1.5) % POC ABG HHb (Measured) (0.0-5.0) % ABG Methemoglobin (0.0-3.0) % Caesar Test A-a O2 Difference mm/Hg Respiratory Index Hgb O2 Saturation (95.0-98.0) % Vent Mode Mechanical Rate FiO2 % Tidal Volume PEEP Sodium (132-148) mmol/L Potassium (3.6-5.2) mmol/L Chloride (98-107) mmol/L Carbon Dioxide (22-30) mmol/L Anion Gap (10-20) BUN (7-17) mg/dL Creatinine (0.7-1.2) mg/dL Est GFR ( Amer) Est GFR (Non-Af Amer) POC Glucose (mg/dL) 156 H (65-110) mg/dL Random Glucose (65-105) mg/dL Calcium (8.6-10.4) mg/dl Phosphorus (2.5-4.5) mg/dL Magnesium (1.6-2.3) mg/dL Total Bilirubin (0.2-1.3) mg/dL AST (14-36) U/L ALT (9-52) U/L Alkaline Phosphatase (38-126) U/L Total Protein (6.3-8.3) g/dL Albumin (3.5-5.0) g/dL Globulin (2.2-3.9) gm/dL Albumin/Globulin Ratio (1.0-2.1) Laboratory Results - last 24 hr 04/24/18 04/25/18 04/25/18 18:00 00:14 05:24 WBC RBC Hgb Hct MCV MCH MCHC RDW Plt Count MPV Neut % (Auto) Lymph % (Auto) [place] % (Auto) Eos % (Auto) Baso % (Auto) Neut # (Auto) Lymph # (Auto) [place] # (Auto) Eos # (Auto) Baso # (Auto) Neutrophils % (Manual) Band Neutrophils % Lymphocytes % (Manual) Monocytes % (Manual) Eosinophils % (Manual) Metamyelocytes % Platelet Estimate Large Platelets Polychromasia Hypochromasia (manual) Poikilocytosis (manual Anisocytosis (manual) Schistocytes PT INR APTT Puncture Site R rad pCO2 32 L pO2 139 H HCO3 23.8 ABG pH 7.45 ABG Total CO2 23.2 ABG O2 Saturation 99.3 H ABG Base Excess -1.4 ABG Hemoglobin 9.0 L ABG Carboxyhemoglobin 1.7 H POC ABG HHb (Measured) 0.7 ABG Methemoglobin 1.1 Caesar Test Pos A-a O2 Difference 106.0 Respiratory Index 0.8 Hgb O2 Saturation 96.4 Vent Mode Prvc Mechanical Rate 14 FiO2 40.0 Tidal Volume 350 PEEP 5 Sodium Potassium Chloride Carbon Dioxide Anion Gap BUN Creatinine Est GFR ( Amer) Est GFR (Non-Af Amer) POC Glucose (mg/dL) 156 H 172 H Random Glucose Calcium Phosphorus Magnesium Total Bilirubin AST ALT Alkaline Phosphatase Total Protein Albumin Globulin Albumin/Globulin Ratio 04/25/18 04/25/18 04/25/18 06:25 06:25 06:25 WBC 20.9 H RBC 3.15 L Hgb 9.8 L Hct 30.4 L MCV 96.5 MCH 31.2 H MCHC 32.3 L RDW 18.0 H Plt Count 120 L D MPV 11.5 Neut % (Auto) 89.3 H Lymph % (Auto) 4.5 L [place] % (Auto) 3.3 Eos % (Auto) 2.3 Baso % (Auto) 0.6 Neut # (Auto) 18.6 H Lymph # (Auto) 0.9 L [place] # (Auto) 0.7 Eos # (Auto) 0.5 Baso # (Auto) 0.1 Neutrophils % (Manual) 83 H Band Neutrophils % 5 H Lymphocytes % (Manual) 4 L Monocytes % (Manual) 3 Eosinophils % (Manual) 4 Metamyelocytes % 1 H Platelet Estimate Slightly decreased L Large Platelets Present Polychromasia Slight Hypochromasia (manual) Slight Poikilocytosis (manual Slight Anisocytosis (manual) Moderate Schistocytes Slight PT 11.6 INR 1.1 APTT 57 H D Puncture Site pCO2 pO2 HCO3 ABG pH ABG Total CO2 ABG O2 Saturation ABG Base Excess ABG Hemoglobin ABG Carboxyhemoglobin POC ABG HHb (Measured) ABG Methemoglobin Caesar Test A-a O2 Difference Respiratory Index Hgb O2 Saturation Vent Mode Mechanical Rate FiO2 Tidal Volume PEEP Sodium 153 H Potassium 5.2 Chloride 127 H Carbon Dioxide 25 Anion Gap 6 L BUN 55 H Creatinine 1.1 Est GFR ( Amer) 60 Est GFR (Non-Af Amer) 49 POC Glucose (mg/dL) Random Glucose 189 H Calcium 9.0 Phosphorus 1.0 L* Magnesium 2.3 Total Bilirubin 0.8 AST 268 H D ALT 905 H D Alkaline Phosphatase 124 Total Protein 4.9 L Albumin 2.4 L Globulin 2.5 Albumin/Globulin Ratio 0.9 L 04/25/18 12:20 WBC RBC Hgb Hct MCV MCH MCHC RDW Plt Count MPV Neut % (Auto) Lymph % (Auto) [place] % (Auto) Eos % (Auto) Baso % (Auto) Neut # (Auto) Lymph # (Auto) [place] # (Auto) Eos # (Auto) Baso # (Auto) Neutrophils % (Manual) Band Neutrophils % Lymphocytes % (Manual) Monocytes % (Manual) Eosinophils % (Manual) Metamyelocytes % Platelet Estimate Large Platelets Polychromasia Hypochromasia (manual) Poikilocytosis (manual Anisocytosis (manual) Schistocytes PT INR APTT Puncture Site pCO2 pO2 HCO3 ABG pH ABG Total CO2 ABG O2 Saturation ABG Base Excess ABG Hemoglobin ABG Carboxyhemoglobin POC ABG HHb (Measured) ABG Methemoglobin Caesar Test A-a O2 Difference Respiratory Index Hgb O2 Saturation Vent Mode Mechanical Rate FiO2 Tidal Volume PEEP Sodium Potassium Chloride Carbon Dioxide Anion Gap BUN Creatinine Est GFR ( Amer) Est GFR (Non-Af Amer) POC Glucose (mg/dL) 170 H Random Glucose Calcium Phosphorus Magnesium Total Bilirubin AST ALT Alkaline Phosphatase Total Protein Albumin Globulin Albumin/Globulin Ratio Radiology Impressions: Radiology Impressions Chest X-Ray 04/25/18 07:06 IMPRESSION: No active disease. Assessment/Plan - Assessment and Plan (Free Text) Plan: Patient seen and examined at bedside with above resident. -Patient does not react to verbal or noxious stimuli -not candidate for extubation 2nd mental status -prognosis poor -family may agree to trach and peg. continue ventilation and tube feeds d/w ICu team - Date & Time Date: 04/25/18 Time: 14:52
[2018-04-24 09:19] LABS: LYMPHOCYTE 2 % (20-40); TOTAL CELLS COUNTED 100
[2018-04-24 09:20] LABS: ANISOCYTOSIS SLIGHT; BANDS 3 % (0-2); NEUTROPHIL 95 % (50-75); PLATELET ESTIMATE NORMAL (NORMAL)
[2018-04-24] MEDS: Sucralfate 1 gm/10 ml Oral Susp UD PO SCH ×3 (09:41→19:00)
[2018-04-24] MEDS: Acetaminophen 650mg/20.3ml solution UD PO PRN (09:41)
[2018-04-24] MEDS: Multiple Vitamins Tab PO SCH (09:42)
[2018-04-24] MEDS: Levothyroxine 100 mcg (0.1 mg) Inj IVP SCH (09:45)
--- NOTE | 2018-04-24 10:22 | CP.PCM.PN ---
Subjective - Date & Time of Evaluation Date of Evaluation: 04/24/18 Time of Evaluation: 10:19 - Subjective Subjective: In ICU, on ventilator, DNR History unobtainable from pt Objective - Vital Signs/Intake and Output Vital Signs (last 24 hours): Temp Pulse Resp BP Pulse Ox 98.0 F 93 H 22 164/99 H 100 04/24/18 04:00 04/24/18 06:32 04/24/18 06:32 04/24/18 06:32 04/24/18 06:32 Intake and Output: 04/24/18 04/24/18 06:59 18:59 Intake Total 496.8 43.9 Output Total 580 0 Balance -83.2 43.9 - Medications Medications: Current Medications Acetaminophen (Tylenol 650mg/20.3ml Solution Ud) 650 mg PO Q4H PRN PRN Reason: Temperature Fever >100.4 F Last Admin: 04/24/18 09:41 Dose: 650 mg Albuterol/Ipratropium (Duoneb 3 Mg/0.5 Mg (3 Ml) Ud) 3 ml INH RQ6 [facility] Last Admin: 04/24/18 07:39 Dose: 3 ml Apixaban (Eliquis) 2.5 mg PO BID [facility] Last Admin: 04/21/18 10:29 Dose: Not Given Aspirin (Aspirin Chewable) 81 mg PO DAILY [facility] Last Admin: 04/24/18 09:42 Dose: 81 mg Clopidogrel Bisulfate (Plavix) 75 mg PO DAILY [facility] Last Admin: 04/24/18 09:41 Dose: 75 mg Ferrous Sulfate (Feosol Liq) 300 mg PO TID [facility] Last Admin: 04/22/18 10:54 Dose: 300 mg Fluconazole (Diflucan Iv 200 Mg/100 Ml Ns) 100 mls @ 100 mls/hr IVPB Q24H [facility]; Protocol Last Admin: 04/23/18 17:40 Dose: 100 mls/hr Heparin Sodium/Sodium Chloride (Heparin 20377 Units/250ml 1/2 Normal Saline) 25,000 units in 250 mls @ 3.919 mls/hr IV .Q24H PRN; Protocol PRN Reason: ADJUST RATE PER PROTOCOL Last Admin: 04/22/18 16:42 Dose: 12 units/kg/hr, 3.919 mls/hr Potassium Chloride (Potassium Chloride 20 Meq/100 Ml) 20 meq in 100 mls @ 50 mls/hr IVPB Q2H [facility] Stop: 04/24/18 10:59 Last Admin: 04/24/18 08:10 Dose: 50 mls/hr Insulin Aspart (Novolog) 0 unit SC Q6H [facility]; Protocol Last Admin: 04/24/18 08:13 Dose: Not Given Levothyroxine Sodium (Synthroid) 100 mcg IVP DAILY [facility] Last Admin: 04/24/18 09:45 Dose: 100 mcg Multivitamins (Hexavitamin) 1 tab PO DAILY [facility] Last Admin: 04/24/18 09:42 Dose: 1 tab Pantoprazole Sodium (Protonix Inj) 40 mg IVP Q12H [facility] Last Admin: 04/24/18 02:45 Dose: 40 mg Potassium Chloride (Potassium Chloride Oral Soln) 40 meq PO Q8 [facility] Stop: 04/24/18 22:01 Rosuvastatin Calcium (Crestor) 5 mg PO HS [facility] Last Admin: 04/23/18 22:05 Dose: 5 mg Sucralfate (Carafate Oral Susp) 1 gm PO TID [facility] Last Admin: 04/24/18 09:41 Dose: 1 gm Vitamin A (Vitamin A & D Oint Ud Foilpak) 0.5 ea TOP Q4 PRN PRN Reason: Dry mouth Last Admin: 04/23/18 15:56 Dose: 0.5 ea - Labs Labs: 04/24/18 05:59 04/24/18 05:55 PT 14.2 SECONDS (9.7-12.2) H 04/24/18 05:55 INR 1.3 04/24/18 05:55 APTT 67 SECONDS (21-34) H D 04/24/18 05:55 - Constitutional Appears: Cachectic, Chronically Ill - Respiratory Exam Respiratory Exam: NORMAL BREATHING PATTERN - Cardiovascular Exam Cardiovascular Exam: REGULAR RHYTHM - GI/Abdominal Exam GI & Abdominal Exam: Soft. absent: Tenderness Assessment and Plan (1) Cachexia Status: Acute (2) Metastatic cancer Assessment & Plan: Likely Pancreatic cancer primary or Thyroi primary. Workup on hold due to recent cardiopulmonary collapse wit grave prognosis at present Status: Acute (3) Dysphagia as late effect of cerebrovascular accident (CVA) Assessment & Plan: In light of recent cardiovascular events, cachexia, metastatic cancer, PEG is not appropriate at this time. If there is meaningful recovery PEG can be reconsidered at that time. Status: Acute
--- NOTE | 2018-04-24 11:36 | CP.PCM.PN ---
Subjective - Date & Time of Evaluation Date of Evaluation: 04/24/18 Time of Evaluation: 09:00 - Subjective Subjective: Patient seen and examined Intubated on ventilatory support No response to stimuli Objective - Vital Signs/Intake and Output Vital Signs (last 24 hours): Temp Pulse Resp BP Pulse Ox 98.0 F 93 H 22 164/99 H 100 04/24/18 04:00 04/24/18 06:32 04/24/18 06:32 04/24/18 06:32 04/24/18 06:32 Intake and Output: 04/24/18 04/24/18 06:59 18:59 Intake Total 496.8 43.9 Output Total 580 0 Balance -83.2 43.9 - Medications Medications: Current Medications Acetaminophen (Tylenol 650mg/20.3ml Solution Ud) 650 mg PO Q4H PRN PRN Reason: Temperature Fever >100.4 F Last Admin: 04/24/18 09:41 Dose: 650 mg Albuterol/Ipratropium (Duoneb 3 Mg/0.5 Mg (3 Ml) Ud) 3 ml INH RQ6 [facility] Last Admin: 04/24/18 07:39 Dose: 3 ml Apixaban (Eliquis) 2.5 mg PO BID [facility] Last Admin: 04/21/18 10:29 Dose: Not Given Aspirin (Aspirin Chewable) 81 mg PO DAILY [facility] Last Admin: 04/24/18 09:42 Dose: 81 mg Clopidogrel Bisulfate (Plavix) 75 mg PO DAILY [facility] Last Admin: 04/24/18 09:41 Dose: 75 mg Ferrous Sulfate (Feosol Liq) 300 mg PO TID [facility] Last Admin: 04/22/18 10:54 Dose: 300 mg Fluconazole (Diflucan Iv 200 Mg/100 Ml Ns) 100 mls @ 100 mls/hr IVPB Q24H [facility]; Protocol Last Admin: 04/23/18 17:40 Dose: 100 mls/hr Heparin Sodium/Sodium Chloride (Heparin 46595 Units/250ml 1/2 Normal Saline) 25,000 units in 250 mls @ 3.919 mls/hr IV .Q24H PRN; Protocol PRN Reason: ADJUST RATE PER PROTOCOL Last Admin: 04/22/18 16:42 Dose: 12 units/kg/hr, 3.919 mls/hr Insulin Aspart (Novolog) 0 unit SC Q6H [facility]; Protocol Last Admin: 04/24/18 08:13 Dose: Not Given Levothyroxine Sodium (Synthroid) 100 mcg IVP DAILY [facility] Last Admin: 04/24/18 09:45 Dose: 100 mcg Multivitamins (Hexavitamin) 1 tab PO DAILY [facility] Last Admin: 04/24/18 09:42 Dose: 1 tab Pantoprazole Sodium (Protonix Inj) 40 mg IVP Q12H [facility] Last Admin: 04/24/18 02:45 Dose: 40 mg Potassium Chloride (Potassium Chloride Oral Soln) 40 meq PO Q8 [facility] Stop: 04/24/18 22:01 Rosuvastatin Calcium (Crestor) 5 mg PO HS [facility] Last Admin: 04/23/18 22:05 Dose: 5 mg Sucralfate (Carafate Oral Susp) 1 gm PO TID [facility] Last Admin: 04/24/18 09:41 Dose: 1 gm Vitamin A (Vitamin A & D Oint Ud Foilpak) 0.5 ea TOP Q4 PRN PRN Reason: Dry mouth Last Admin: 04/23/18 15:56 Dose: 0.5 ea - Labs Labs: 04/24/18 05:59 04/24/18 05:55 PT 14.2 SECONDS (9.7-12.2) H 04/24/18 05:55 INR 1.3 04/24/18 05:55 APTT 67 SECONDS (21-34) H D 04/24/18 05:55 - Head Exam Head Exam: ATRAUMATIC, NORMOCEPHALIC - ENT Exam ENT Exam: Mucous Membranes Moist - Respiratory Exam Respiratory Exam: Decreased Breath Sounds - Cardiovascular Exam Cardiovascular Exam: REGULAR RHYTHM - GI/Abdominal Exam GI & Abdominal Exam: Soft, Normal Bowel Sounds Assessment and Plan (1) Acute respiratory failure Assessment & Plan: No response to painful stimuli Continue ventilatory support Prognosis grave Metastatic disease with unknown primary Status: Acute (2) NSTEMI (non-ST elevated myocardial infarction) Status: Acute (3) CVA (cerebral vascular accident) Status: Acute (4) Metastatic cancer Status: Acute (5) COPD exacerbation Status: Acute
--- NOTE | 2018-04-24 11:55 | CP.PCM.PN ---
Subjective - Date & Time of Evaluation Date of Evaluation: 04/24/18 Time of Evaluation: 11:51 - Subjective Subjective: Patient is intubated, sedated and unresponsive to stimuli. Patient looks ill. WBC 18.3. urine and sputum cultures positive VRE, contact iso;ation and IV antibiotics on board. AST and ALT severely elevated. Newly diagnosed DEVIN. renal consult called. Objective - Vital Signs/Intake and Output Vital Signs (last 24 hours): Temp Pulse Resp BP Pulse Ox 98.0 F 93 H 22 164/99 H 100 04/24/18 04:00 04/24/18 06:32 04/24/18 06:32 04/24/18 06:32 04/24/18 06:32 Intake and Output: 04/24/18 04/24/18 06:59 18:59 Intake Total 496.8 43.9 Output Total 580 0 Balance -83.2 43.9 - Medications Medications: Current Medications Acetaminophen (Tylenol 650mg/20.3ml Solution Ud) 650 mg PO Q4H PRN PRN Reason: Temperature Fever >100.4 F Last Admin: 04/24/18 09:41 Dose: 650 mg Albuterol/Ipratropium (Duoneb 3 Mg/0.5 Mg (3 Ml) Ud) 3 ml INH RQ6 [facility] Last Admin: 04/24/18 07:39 Dose: 3 ml Apixaban (Eliquis) 2.5 mg PO BID [facility] Last Admin: 04/21/18 10:29 Dose: Not Given Aspirin (Aspirin Chewable) 81 mg PO DAILY [facility] Last Admin: 04/24/18 09:42 Dose: 81 mg Clopidogrel Bisulfate (Plavix) 75 mg PO DAILY [facility] Last Admin: 04/24/18 09:41 Dose: 75 mg Ferrous Sulfate (Feosol Liq) 300 mg PO TID [facility] Last Admin: 04/22/18 10:54 Dose: 300 mg Fluconazole (Diflucan Iv 200 Mg/100 Ml Ns) 100 mls @ 100 mls/hr IVPB Q24H [facility]; Protocol Last Admin: 04/23/18 17:40 Dose: 100 mls/hr Heparin Sodium/Sodium Chloride (Heparin 23704 Units/250ml 1/2 Normal Saline) 25,000 units in 250 mls @ 3.919 mls/hr IV .Q24H PRN; Protocol PRN Reason: ADJUST RATE PER PROTOCOL Last Admin: 04/22/18 16:42 Dose: 12 units/kg/hr, 3.919 mls/hr Insulin Aspart (Novolog) 0 unit SC Q6H [facility]; Protocol Last Admin: 04/24/18 08:13 Dose: Not Given Levothyroxine Sodium (Synthroid) 100 mcg IVP DAILY [facility] Last Admin: 04/24/18 09:45 Dose: 100 mcg Multivitamins (Hexavitamin) 1 tab PO DAILY [facility] Last Admin: 04/24/18 09:42 Dose: 1 tab Pantoprazole Sodium (Protonix Inj) 40 mg IVP Q12H [facility] Last Admin: 04/24/18 02:45 Dose: 40 mg Potassium Chloride (Potassium Chloride Oral Soln) 40 meq PO Q8 [facility] Stop: 04/24/18 22:01 Rosuvastatin Calcium (Crestor) 5 mg PO HS [facility] Last Admin: 04/23/18 22:05 Dose: 5 mg Sucralfate (Carafate Oral Susp) 1 gm PO TID [facility] Last Admin: 04/24/18 09:41 Dose: 1 gm Vitamin A (Vitamin A & D Oint Ud Foilpak) 0.5 ea TOP Q4 PRN PRN Reason: Dry mouth Last Admin: 04/23/18 15:56 Dose: 0.5 ea - Labs Labs: 04/24/18 05:59 04/24/18 05:55 PT 14.2 SECONDS (9.7-12.2) H 04/24/18 05:55 INR 1.3 04/24/18 05:55 APTT 67 SECONDS (21-34) H D 04/24/18 05:55 - Constitutional Appears: In Acute Distress - Head Exam Head Exam: ATRAUMATIC, NORMAL INSPECTION, NORMOCEPHALIC - Eye Exam Eye Exam: EOMI, Normal appearance, PERRL Pupil Exam: NORMAL ACCOMODATION, PERRL - ENT Exam Additional comments: ETT - Neck Exam Neck Exam: Normal Inspection - Respiratory Exam Additional comments: On MV support - Cardiovascular Exam Cardiovascular Exam: Tachycardia, Irregular Rhythm - GI/Abdominal Exam GI & Abdominal Exam: Soft, Hypoactive Bowel Sounds - Rectal Exam Rectal Exam: Deferred - Exam Additional comments: Walsh cath - Extremities Exam Extremities Exam: Normal Capillary Refill, Normal Inspection, Pedal Edema - Back Exam Back Exam: NORMAL INSPECTION - Neurological Exam Neurological Exam: Motor Sensory Deficit Neuro motor strength exam: Left Upper Extremity: 0, Right Upper Extremity: 0, Left Lower Extremity: 0, Right Lower Extremity: 0 - Psychiatric Exam Psychiatric exam: Flat Affect - Skin Skin Exam: Dry, Intact, Normal Color, Warm Assessment and Plan - Assessment and Plan (Free Text) Assessment: Progress note Patient admitted to ICU after found on the floor in acute respiratory distress. Patient was immediately intubated and transferred to ICU, Patient never got stable enough for proposed biopsy of thyroid mass. Patient was than diagnosed with Sputum infection and VRE. Contact isolation and IV antibiotics on board. Family meeting held today attended by two daughters, and two nieces, Doctor Dale and myself. Away from the bed side we reviewed patient's clinical presentation, most recent blood results, diagnoses and interventions. Doctor Hunter and myself made sure family understood that the quality of life due to consequences of CVA in combination with thyroid mass and mets to spine , was significantly declined. Family was helped to understand that at this point patient is unable to breath on her own and that she would need a fdc solution such as trach. We also made sure family understands that those interventions could be very risky or even denied by the surgeon. terminal extubation was discussed as an option as well. Family got very emotional, especially , who cried, asked how come patient was not sooner diagnosed and left the room. The possibility of PEG and trach than discussed with Doctor Leo Willis. Doctor Leo Willis advised that PEG and trach are options as long as patient is Medically stable for procedure. Smitaily was happy to hear it and agreed with proposition. Impression * Acute respiratory distress * AMS * UTI * Sputum infection * Patient is fully dependent of life support * Family has difficult time excepting poor prognosis and is looking into life prolonging measures such as trach and PEG * Spiritual distress among family members * Anticipatory grieving Suggestion * Continue MV support, consider trach creation if patient stable for it * Contact isolation for VRE * Pastoral care for spiritual support * LTAC placement post PEG and trach insertion We agreed to meet again on Friday and up on goals of care. Advance care planing 60 min
--- NOTE | 2018-04-24 11:56 | PN ---
DATE: 04/24/2018 LOCATION: ICU room 10. SUBJECTIVE: This is a 67-year-old female with metastatic CA, possibly pancreatic in origin, and also with recent acute respiratory failure and currently endotracheally intubated and sedated at this time. She also has some underlying multinodular goiter with a dominant right thyroid nodule and has been actually awaiting a needle biopsy which was deferred because of the aforementioned hemodynamic decompensation. Her glycemic levels are improved and have ranged from 134 to 165 mg/dL. LABORATORY DATA: Her chemistries showed a BUN of 87, sodium 150, potassium 3.3, chloride 120, CO2 of 23, glucose 195 and creatinine 2.1. Her troponin levels are 17 with a recent myocardial infarction as noted. ASSESSMENT AND PLAN: There is a family meeting scheduled for 10'o clock this morning and the hospital nurse opted for a [id number]-[id number] status at this time. We will continue the levothyroxine given as 100 mcg intravenous push daily as ordered. We will obtain serial chemistries and supplement accordingly as needed. We will follow. Akiko Erazo MD
[2018-04-24] MEDS: Potassium Chloride 20 mEq/15 ml LIQ UD PO SCH ×2 (14:00→22:00)
--- NOTE | 2018-04-24 14:30 | CP.PCM.PN ---
Subjective - Date & Time of Evaluation Date of Evaluation: 04/24/18 Time of Evaluation: 01:30 - Subjective Subjective: chart reviewed Patient seen still intubated family at bedside familydaughters and had meeting with hospice they want comfort and anything medical necessary but no code blue as per further discussion of patient's condition Objective - Vital Signs/Intake and Output Vital Signs (last 24 hours): Temp Pulse Resp BP Pulse Ox 98.0 F 105 H 24 169/101 H 100 04/24/18 04:00 04/24/18 12:00 04/24/18 12:00 04/24/18 11:32 04/24/18 12:00 Intake and Output: 04/24/18 04/24/18 06:59 18:59 Intake Total 496.8 43.9 Output Total 580 0 Balance -83.2 43.9 - Medications Medications: Current Medications Acetaminophen (Tylenol 650mg/20.3ml Solution Ud) 650 mg PO Q4H PRN PRN Reason: Temperature Fever >100.4 F Last Admin: 04/24/18 09:41 Dose: 650 mg Albuterol/Ipratropium (Duoneb 3 Mg/0.5 Mg (3 Ml) Ud) 3 ml INH RQ6 [facility] Last Admin: 04/24/18 13:41 Dose: 3 ml Apixaban (Eliquis) 2.5 mg PO BID [facility] Last Admin: 04/21/18 10:29 Dose: Not Given Aspirin (Aspirin Chewable) 81 mg PO DAILY [facility] Last Admin: 04/24/18 09:42 Dose: 81 mg Clopidogrel Bisulfate (Plavix) 75 mg PO DAILY [facility] Last Admin: 04/24/18 09:41 Dose: 75 mg Ferrous Sulfate (Feosol Liq) 300 mg PO TID [facility] Last Admin: 04/22/18 10:54 Dose: 300 mg Fluconazole (Diflucan Iv 200 Mg/100 Ml Ns) 100 mls @ 100 mls/hr IVPB Q24H [facility]; Protocol Last Admin: 04/23/18 17:40 Dose: 100 mls/hr Heparin Sodium/Sodium Chloride (Heparin 99927 Units/250ml 1/2 Normal Saline) 25,000 units in 250 mls @ 3.919 mls/hr IV .Q24H PRN; Protocol PRN Reason: ADJUST RATE PER PROTOCOL Last Admin: 04/22/18 16:42 Dose: 12 units/kg/hr, 3.919 mls/hr Insulin Aspart (Novolog) 0 unit SC Q6H [facility]; Protocol Last Admin: 04/24/18 12:37 Dose: Not Given Levothyroxine Sodium (Synthroid) 100 mcg IVP DAILY [facility] Last Admin: 04/24/18 09:45 Dose: 100 mcg Multivitamins (Hexavitamin) 1 tab PO DAILY [facility] Last Admin: 04/24/18 09:42 Dose: 1 tab Pantoprazole Sodium (Protonix Inj) 40 mg IVP Q12H [facility] Last Admin: 04/24/18 02:45 Dose: 40 mg Potassium Chloride (Potassium Chloride Oral Soln) 40 meq PO Q8 [facility] Stop: 04/24/18 22:01 Rosuvastatin Calcium (Crestor) 5 mg PO HS [facility] Last Admin: 04/23/18 22:05 Dose: 5 mg Sucralfate (Carafate Oral Susp) 1 gm PO TID [facility] Last Admin: 04/24/18 09:41 Dose: 1 gm Vitamin A (Vitamin A & D Oint Ud Foilpak) 0.5 ea TOP Q4 PRN PRN Reason: Dry mouth Last Admin: 04/23/18 15:56 Dose: 0.5 ea - Labs Labs: 04/24/18 05:59 04/24/18 05:55 PT 14.2 SECONDS (9.7-12.2) H 04/24/18 05:55 INR 1.3 04/24/18 05:55 APTT 67 SECONDS (21-34) H D 04/24/18 05:55 - Constitutional Appears: Other (patient is intubated, with very minimal response even with painful stimuli, cachectic, arms starts to swell, abdomen is flat , extremeties are not swollen no spontaneous movement ) Assessment and Plan - Assessment and Plan (Free Text) Assessment: Patient with multiple medical prob;ems currently wit Respiratory failure intubated Sepsis CVA CAD AFib with stage 4 metastatic lesions unknown primary poor prognosis family aware of condition had meeting with hospice
--- NOTE | 2018-04-24 16:40 | CARD ---
APPROVED REPORT Date of service: 04/23/2018 EKG Measurement Heart [id number] <Conclusion> Sinus tachycardia Septal infarct, age undetermined Marked ST abnormality, possible anterior subendocardial injury Abnormal ECG
--- NOTE | 2018-04-24 17:26 | CP.PCM.PN ---
Subjective - Date & Time of Evaluation Date of Evaluation: 04/24/18 Time of Evaluation: 09:00 - Subjective Subjective: intubated Objective - Vital Signs/Intake and Output Vital Signs (last 24 hours): Temp Pulse Resp BP Pulse Ox 98.0 F 105 H 24 169/101 H 100 04/24/18 04:00 04/24/18 12:00 04/24/18 12:00 04/24/18 11:32 04/24/18 12:00 Intake and Output: 04/24/18 04/24/18 06:59 18:59 Intake Total 496.8 43.9 Output Total 580 0 Balance -83.2 43.9 - Medications Medications: Current Medications Acetaminophen (Tylenol 650mg/20.3ml Solution Ud) 650 mg PO Q4H PRN PRN Reason: Temperature Fever >100.4 F Last Admin: 04/24/18 09:41 Dose: 650 mg Albuterol/Ipratropium (Duoneb 3 Mg/0.5 Mg (3 Ml) Ud) 3 ml INH RQ6 [facility] Last Admin: 04/24/18 13:41 Dose: 3 ml Apixaban (Eliquis) 2.5 mg PO BID [facility] Last Admin: 04/21/18 10:29 Dose: Not Given Aspirin (Aspirin Chewable) 81 mg PO DAILY [facility] Last Admin: 04/24/18 09:42 Dose: 81 mg Clopidogrel Bisulfate (Plavix) 75 mg PO DAILY [facility] Last Admin: 04/24/18 09:41 Dose: 75 mg Ferrous Sulfate (Feosol Liq) 300 mg PO TID [facility] Last Admin: 04/22/18 10:54 Dose: 300 mg Fluconazole (Diflucan Iv 200 Mg/100 Ml Ns) 100 mls @ 100 mls/hr IVPB Q24H [facility]; Protocol Last Admin: 04/23/18 17:40 Dose: 100 mls/hr Heparin Sodium/Sodium Chloride (Heparin 79429 Units/250ml 1/2 Normal Saline) 25,000 units in 250 mls @ 3.919 mls/hr IV .Q24H PRN; Protocol PRN Reason: ADJUST RATE PER PROTOCOL Last Admin: 04/22/18 16:42 Dose: 12 units/kg/hr, 3.919 mls/hr Insulin Aspart (Novolog) 0 unit SC Q6H [facility]; Protocol Last Admin: 04/24/18 12:37 Dose: Not Given Levothyroxine Sodium (Synthroid) 100 mcg IVP DAILY [facility] Last Admin: 04/24/18 09:45 Dose: 100 mcg Multivitamins (Hexavitamin) 1 tab PO DAILY [facility] Last Admin: 04/24/18 09:42 Dose: 1 tab Pantoprazole Sodium (Protonix Inj) 40 mg IVP Q12H [facility] Last Admin: 04/24/18 02:45 Dose: 40 mg Potassium Chloride (Potassium Chloride Oral Soln) 40 meq PO Q8 [facility] Stop: 04/24/18 22:01 Rosuvastatin Calcium (Crestor) 5 mg PO HS [facility] Last Admin: 04/23/18 22:05 Dose: 5 mg Sucralfate (Carafate Oral Susp) 1 gm PO TID [facility] Last Admin: 04/24/18 09:41 Dose: 1 gm Vitamin A (Vitamin A & D Oint Ud Foilpak) 0.5 ea TOP Q4 PRN PRN Reason: Dry mouth Last Admin: 04/23/18 15:56 Dose: 0.5 ea - Labs Labs: 04/24/18 05:59 04/24/18 05:55 PT 14.2 SECONDS (9.7-12.2) H 04/24/18 05:55 INR 1.3 04/24/18 05:55 APTT 67 SECONDS (21-34) H D 04/24/18 05:55 - Constitutional Appears: Confused, Cachectic, Chronically Ill - Head Exam Head Exam: NORMOCEPHALIC - Eye Exam Eye Exam: absent: Scleral icterus - ENT Exam ENT Exam: Mucous Membranes Dry - Neck Exam Neck Exam: absent: Lymphadenopathy - Respiratory Exam Respiratory Exam: Decreased Breath Sounds - Cardiovascular Exam Cardiovascular Exam: REGULAR RHYTHM - GI/Abdominal Exam GI & Abdominal Exam: Distended, Soft - Rectal Exam Rectal Exam: Deferred - Exam Exam: NORMAL INSPECTION Assessment and Plan (1) Acute respiratory failure with hypoxia and hypercapnia Status: Acute (2) Metastatic cancer Status: Acute (3) COPD exacerbation Status: Acute (4) Cachexia Status: Acute (5) CVA (cerebral vascular accident) Status: Acute - Assessment and Plan (Free Text) Assessment: cont iv rx poor prognosis
[2018-04-24] MEDS: Fluconazole IV 200mg/100 ml NS 100 ML IVPB SCH (19:00)
[2018-04-24] MEDS: Linezolid 600 mg in D5W 300 ml 600 MG/300 ML BAG IVPB SCH (19:02)
--- NOTE | 2018-04-24 19:12 | CP.PCM.PN ---
Subjective - Date & Time of Evaluation Date of Evaluation: 04/24/18 Time of Evaluation: 19:12 - Subjective Subjective: pt is seen and examined, follow up consult is dictated #[id number] Objective - Vital Signs/Intake and Output Vital Signs (last 24 hours): Temp Pulse Resp BP Pulse Ox 102.2 F H 93 H 21 97/60 L 97 04/24/18 12:00 04/24/18 18:00 04/24/18 18:00 04/24/18 17:32 04/24/18 18:00 Intake and Output: 04/24/18 04/25/18 18:59 06:59 Intake Total 726.8 Output Total 500 Balance 226.8 - Medications Medications: Current Medications Acetaminophen (Tylenol 650mg/20.3ml Solution Ud) 650 mg PO Q4H PRN PRN Reason: Temperature Fever >100.4 F Last Admin: 04/24/18 09:41 Dose: 650 mg Albuterol/Ipratropium (Duoneb 3 Mg/0.5 Mg (3 Ml) Ud) 3 ml INH RQ6 [facility] [place] Last Admin: 04/24/18 13:41 Dose: 3 ml Apixaban (Eliquis) 2.5 mg PO BID [facility] Last Admin: 04/21/18 10:29 Dose: Not Given Aspirin (Aspirin Chewable) 81 mg PO DAILY [facility] [place] Last Admin: 04/24/18 09:42 Dose: 81 mg Clopidogrel Bisulfate (Plavix) 75 mg PO DAILY [facility] Last Admin: 04/24/18 09:41 Dose: 75 mg Ferrous Sulfate (Feosol Liq) 300 mg PO TID [facility] Last Admin: 04/22/18 10:54 Dose: 300 mg Fluconazole (Diflucan Iv 200 Mg/100 Ml Ns) 100 mls @ 100 mls/hr IVPB Q24H [facility]; Protocol Last Admin: 04/24/18 19:00 Dose: 100 mls/hr Heparin Sodium/Sodium Chloride (Heparin 16442 Units/250ml 1/2 Normal Saline) 25,000 units in 250 mls @ 3.919 mls/hr IV .Q24H PRN; Protocol PRN Reason: ADJUST RATE PER PROTOCOL Last Admin: 04/22/18 16:42 Dose: 12 units/kg/hr, 3.919 mls/hr Linezolid (Zyvox 600mg/300ml D5w) 600 mg in 300 mls @ 200 mls/hr IVPB Q12H [facility] [place]; Protocol Last Admin: 04/24/18 19:02 Dose: 200 mls/hr Dextrose (Dextrose 5% In Water 1000 Ml) 1,000 mls @ 60 mls/hr IV .[id number] [facility] Insulin Aspart (Novolog) 0 unit SC Q6H [facility]; Protocol Last Admin: 04/24/18 18:51 Dose: Not Given Levothyroxine Sodium (Synthroid) 100 mcg IVP DAILY [facility] [place] Last Admin: 04/24/18 09:45 Dose: 100 mcg Multivitamins (Hexavitamin) 1 tab PO DAILY [facility] Last Admin: 04/24/18 09:42 Dose: 1 tab Pantoprazole Sodium (Protonix Inj) 40 mg IVP Q12H [facility] [place] Last Admin: 04/24/18 15:02 Dose: 40 mg Potassium Chloride (Potassium Chloride Oral Soln) 40 meq PO Q8 [facility] Stop: 04/24/18 22:01 Last Admin: 04/24/18 14:00 Dose: 40 meq Rosuvastatin Calcium (Crestor) 5 mg PO HS [facility] Last Admin: 04/23/18 22:05 Dose: 5 mg Sucralfate (Carafate Oral Susp) 1 gm PO TID [facility] Last Admin: 04/24/18 19:00 Dose: 1 gm Vitamin A (Vitamin A & D Oint Ud Foilpak) 0.5 ea TOP Q4 PRN PRN Reason: Dry mouth Last Admin: 04/23/18 15:56 Dose: 0.5 ea - Labs Labs: 04/24/18 05:59 04/24/18 05:55 PT 14.2 SECONDS (9.7-12.2) H 04/24/18 05:55 INR 1.3 04/24/18 05:55 APTT 67 SECONDS (21-34) H D 04/24/18 05:55
[2018-04-24] MEDS: Heparin25000 units/250ml 1/2NS 25,000 UNITS/250 ML BAG IV PRN (20:52)
[2018-04-24] MEDS ORDERED: Potassium Chloride 20 mEq/15 ml LIQ UD PO SCH (23:45)
[2018-04-25] MEDS: Potassium Chloride 20 mEq/15 ml LIQ UD PO SCH (00:12)
[2018-04-25] MEDS: (Novolog) Insulin Aspart, Recombinant 100 u/ml 10 ml vial SC SCH ×4 (00:15→17:56)
--- NOTE | 2018-04-25 03:46 | PN ---
DATE: 04/24/2018 FOLLOWUP RENAL CONSULTATION LOCATION: The patient is located in ICU, bed 10. REQUESTED BY: Libia Brady MD REASON FOR FOLLOWUP: Acute renal failure. SUBJECTIVE: Mrs. Gonzalez is a 67-year-old very thin-built, cachectic [place] female with past medical history significant for hypertension, CAD, status post stent placement, CVA, and COPD who was recently admitted from the alf with altered mental status and acute respiratory failure, status post intubation and admitted to ICU, status post vigorous diuresis, and subsequently the patient developed hypernatremia and acute renal failure, requiring gentle IV hydration. Serum sodium and renal function improved. Subsequently, the patient was transferred to medical floor where the patient collapsed two days ago and found to have acute UT. Subsequently, the patient was intubated and transferred to ICU. The patient remains intubated and not following commands. PHYSICAL EXAMINATION: VITAL SIGNS: As follows: Blood pressure 97/60, pulse 85, respirations 16, saturation 100%, temperature 96.8, and T-max 102.2. Height 5 feet 3 inches. Weight is 73 pounds. GENERAL: Mrs. Gonzalez is a 67-year-old elderly very thin-built, cachectic female, on ventilator. HEENT: Pupils are normal and reactive to light and accommodation. Conjunctivae pink. Sclerae anicteric. On ventilator. NECK: No thyroid enlargement. LUNGS: Symmetric on both sides. Bilateral breath sounds present. No crackles. CARDIOVASCULAR SYSTEM: [place] at the fifth intercostal space, midclavicular line. S1 and S2 audible. No murmur or gallop. ABDOMEN: Normal in appearance. Soft, tympanitic. No guarding. No rigidity. No hepatosplenomegaly. CENTRAL NERVOUS SYSTEM: Remains intubated, not responding to verbal stimuli. EXTREMITIES: No cyanosis, no clubbing, no edema. CURRENT MEDICATIONS: Include as follows: Aspirin 81 mg daily, Carafate 1 g p.o. t.i.d., Crestor 5 mg at bedtime, IV fluids just started, D5W at 60 mL per hour, Diflucan 200 mg IV every 24 hours, Eliquis on hold, ferrous sulfate on hold, IV heparin 12 units/kg per hour, multivitamin one tablet daily, Plavix 75 mg p.o. daily, Protonix 40 mg IV every 12 hours, Synthroid 100 mcg IV daily, vitamin A and D ointment, and Zyvox 600 mg IV every 12 hours. LABORATORY DATA: Include as follows: WBC 18.3, hemoglobin 11.1, hematocrit is 33.6, platelet 163. Neutrophils 95, bands 3, lymphs 2. PT 14.2, PTT 67. ABG: pH 7.49, pCO2 28, pO2 243, bicarb 23.9, saturation 99.5 with a vent setting AC 14, FiO2 50%, title volume 350, PEEP of 5. Sodium is 150, potassium is 3.3, chloride 120, CO2 23, BUN 87, creatinine 2.1, glucose 195, calcium 8.7, phosphorus 3.3, magnesium 2.6. Total bili 1.1, AST 679, ALT 1180, alkaline phosphatase 124, total protein 5, albumin is 2.7. Chest x-ray as of 04/24/2018: Stable position of our support tubes. No significant interval change. Lungs are well inflated. There is moderate pulmonary venous congestion. No focal consolidation. No pleural effusion. No pneumothorax. ASSESSMENT: In summary, Mrs. Gonzalez is a 67-year-old elderly very thin-built, cachectic [place] female with a history of hypertension, coronary artery disease, status post stent placement, cerebrovascular accident, and chronic obstructive pulmonary disease, was re-intubated after the patient had [employer] and collapse and found to have acute myocardial infarction, and now urine culture is positive for vancomycin-resistant enterococcus with increased blood urea nitrogen and increased serum sodium. 1. Acute renal failure, nonoliguric. In the last 24 hours, her intake is 3430 and output is 727. 2. Respiratory failure. 3. [id number] myocardial infarction. 4. Radiological evidence of metastatic bone disease with unknown primary with elevated CA19-9 and CEA. Rule out pancreatic cancer. Rule out colon cancer. PLAN: Continue IV antibiotics, Zyvox 600 mg every 12 hours as per ID recommendation. Continue IV fluids of D5W at 60 mL per hour for hypernatremia. Continue monitoring electrolytes. Overall prognosis is very poor. The patient's family is thinking of hospice care in the next few days. Thank you for allowing me to participate in your patient's care. Overall prognosis is very poor. Jose Angel Adams MD [facility] # [id number]
[2018-04-25] MEDS: Linezolid 600 mg in D5W 300 ml 600 MG/300 ML BAG IVPB SCH ×2 (05:03→17:08)
[2018-04-25] MEDS: Acetaminophen 650mg/20.3ml solution UD PO PRN ×2 (05:04→22:00)
[2018-04-25] MEDS ORDERED: Potassium Chloride 20 mEq/15 ml LIQ UD PO SCH (06:00)
[2018-04-25 06:03] LABS: ABG ALLEN TEST POS; ARTERIAL BLOOD GAS HCO3 23.8 mmol/L (21-28); ARTERIAL BLOOD GAS O2 SAT 99.3 % (95-98); ARTERIAL BLOOD GAS PCO2 32 mm/Hg (35-45); ARTERIAL BLOOD GAS PH 7.45 (7.35-7.45); ARTERIAL BLOOD GAS PO2 139 mm/Hg (80-100); ARTERIAL BLOOD GAS TCO2 23.2 mmol/L (22-28)
[2018-04-25 06:32] LABS: BASO # 0.1 K/uL (0.0-0.2); BASO % 0.6 % (0.0-2.0); EOS # 0.5 K/uL (0.0-0.7); EOS % 2.3 % (0.0-4.0); HEMOGLOBIN 9.8 g/dL (11.0-16.0); LYMPH # 0.9 K/uL (1.0-4.3); LYMPH % 4.5 % (20.0-40.0); MEAN CELL VOLUME 96.5 fL (81.0-99.0); MEAN CORPUSCULAR HEMOGLOBIN 31.2 pg (27.0-31.0); MEAN CORPUSCULAR HGB CONC 32.3 g/dL (33.0-37.0); MEAN PLATELET VOLUME 11.5 fL (7.2-11.7); MONO # 0.7 K/uL (0.0-0.8); MONO % 3.3 % (0.0-10.0); NEUT # 18.6 K/uL (1.8-7.0); NEUT % 89.3 % (50.0-75.0); NRBC % 2.3 % (0.0-2.0); PLATELET COUNT 120 K/uL (130-400); RBC 3.15 Mil/uL (3.80-5.20); WHITE BLOOD COUNT 20.9 K/uL (4.8-10.8)
[2018-04-25 06:39] LABS: INR 1.1; PROTHROMBIN TIME 11.6 SECONDS (9.7-12.2)
[2018-04-25 06:49] LABS: ALB/GLOB RATIO 0.9 (1.0-2.1); ALBUMIN 2.4 g/dL (3.5-5.0)
[2018-04-25] MEDS ORDERED: Potassium Phosphate 15 MMOLE in Dextrose 5% In Water 250 ML IVPB ONE (07:30)
[2018-04-25] MEDS ORDERED: Sodium Phosphate 15 MMOLE in Sodium Chloride 0.9% 250 ML IVPB ONE ×2 (08:45→13:00)
[2018-04-25 08:51] LABS: BANDS 5 % (0-2); EOSINOPHIL 4 % (0-4); LYMPHOCYTE 4 % (20-40); METAMYELOCYTE 1 % (0-0); MONOCYTE 3 % (0-10); NEUTROPHIL 83 % (50-75); PLATELET ESTIMATE SLIGHTLY DECREASED (NORMAL); TOTAL CELLS COUNTED 100
[2018-04-25 08:52] LABS: ANISOCYTOSIS MODERATE; HYPOCHROMIC SLIGHT; LARGE PLATELETS PRESENT; POLYCHROMIC SLIGHT
[2018-04-25 08:55] LABS: POIKILOCYTOSIS SLIGHT; SCHISTOCYTES SLIGHT
[2018-04-25] MEDS: Potassium & Sodium Phosphate PO SCH ×3 (09:06→17:14)
[2018-04-25] MEDS: Ferrous Sulfate 300 mg/5 mL Liq UD PO SCH ×3 (09:06→17:14)
[2018-04-25] MEDS: Multiple Vitamins Tab PO SCH (09:06)
[2018-04-25] MEDS: Sucralfate 1 gm/10 ml Oral Susp UD PO SCH ×3 (09:06→17:14)
[2018-04-25] MEDS: Levothyroxine 100 mcg (0.1 mg) Inj IVP SCH (09:07)
--- NOTE | 2018-04-25 09:10 | CP.CCUPN ---
<Armin Hunter - Last Filed: 04/25/18 12:20> CCU Subjective - Physician Review Subjective (Free Text): Critical care progress note for Dr. Leo rasheed. Patient seen and examined at bedside. No overnight events reported. Patient remains intubated, but started on CPAP trials. CCU Objective - Vital Signs / Intake & Output Vital Signs (Last 4 hours): Vital Signs Temp Pulse Resp BP Pulse Ox 04/25/18 08:00 98.5 F 89 16 100 04/25/18 07:32 104 H 22 147/97 H 100 04/25/18 07:00 103 H 20 100 04/25/18 06:32 97 H 18 109/61 100 04/25/18 06:04 101 F H 04/25/18 05:53 96 H 18 125/88 100 Intake and Output (Last 8hrs): Intake & Output 04/24/18 04/25/18 04/25/18 22:59 06:59 14:59 Intake Total 1061.2 1011.2 207.8 Output Total 300 900 Balance 761.2 111.2 207.8 Weight 76 lb 9.6 oz Intake: IV 250 Intake, IV Amount 491.2 691.2 127.8 Left Hand 31.2 31.2 7.8 Left Wrist 60 360 120 Right Forearm 400 300 Tube Feeding 320 320 80 Output: Urine 300 900 Urine, Voided 300 900 Other: # Bowel Movements 0 - Physical Exam Head: Positive for: Atraumatic, Normocephalic Conjunctiva: Positive for: Normal Mouth: Positive for: Moist Mucous Membranes Neck: Positive for: Normal Range of Motion Respiratory/Chest: Positive for: Good Air Exchange, Decreased Breath Sounds Cardiovascular: Positive for: Normal S1, S2 Abdomen: Positive for: Normal Bowel Sounds Upper Extremity: Positive for: Other (limited movement left upper extremity) Lower Extremity: Positive for: Edema Skin: Positive for: Warm, Normal Color Psychiatric: Positive for: Other (intubated) - Medications Active Medications: Active Medications Generic Name Dose Route Start Last Admin Trade Name Freq PRN Reason Stop Dose Admin Acetaminophen 650 mg 04/23/18 11:35 04/25/18 05:04 Tylenol 650mg/20.3ml Solution Ud PO 650 mg Q4H PRN Administration Temperature Fever >100.4 F Aspirin 81 mg 04/23/18 10:00 04/25/18 09:06 Aspirin Chewable PO 81 mg DAILY RODRIGO Administration Clopidogrel Bisulfate 75 mg 04/23/18 10:00 04/25/18 09:06 Plavix PO 75 mg DAILY RODRIGO Administration Ferrous Sulfate 300 mg 04/19/18 19:00 04/25/18 09:06 Feosol Liq PO 300 mg TID RODRIGO Administration Fluconazole 100 mls @ 100 mls/hr 04/14/18 18:30 04/24/18 19:00 Diflucan Iv 200 Mg/100 Ml Ns IVPB 100 mls/hr Q24H RODRIGO Administration Protocol Heparin Sodium/Sodium Chloride 25,000 units in 250 mls @ 3.919 mls/hr 04/22/18 16:17 04/24/18 20:52 Heparin 64278 Units/250ml 1/2 Normal Saline IV 12 units/kg/hr .Q24H PRN 3.919 mls/hr ADJUST RATE PER PROTOCOL Administration Protocol 12 UNITS/KG/HR Linezolid 600 mg in 300 mls @ 200 mls/hr 04/24/18 18:00 04/25/18 05:03 Zyvox 600mg/300ml D5w IVPB 200 mls/hr Q12H RODRIGO Administration Protocol Dextrose 1,000 mls @ 60 mls/hr 04/24/18 19:15 04/24/18 20:50 Dextrose 5% In Water 1000 Ml IV 60 mls/hr .[id number] RODRIGO Administration Sodium Phosphate 15 mmole/ 255 mls @ 50 mls/hr 04/25/18 08:45 Sodium Chloride IVPB 04/25/18 13:50 .Q5H6M ONE Sodium Phosphate 15 mmole/ 255 mls @ 50 mls/hr 04/25/18 13:00 Sodium Chloride IVPB 04/25/18 18:05 .Q5H6M ONE Insulin Aspart 0 unit 04/12/18 18:00 04/25/18 06:00 Novolog SC Not Given Q6H RODRIGO Protocol Levothyroxine Sodium 100 mcg 04/22/18 10:00 04/25/18 09:07 Synthroid IVP 100 mcg DAILY RODRIGO Administration Multivitamins 1 tab 04/18/18 10:00 04/25/18 09:06 Hexavitamin PO 1 tab DAILY RODRIGO Administration Pantoprazole Sodium 40 mg 04/23/18 14:45 04/25/18 03:05 Protonix Inj IVP 40 mg Q12H RODRIGO Administration Potassium Phos/Sodium Phos 1 pkt 04/25/18 10:00 04/25/18 09:06 Neutra-Phos PO 04/27/18 10:01 1 pkt TID RODRIGO Administration Rosuvastatin Calcium 5 mg 04/10/18 22:00 04/24/18 22:00 Crestor PO 5 mg HS RODRIGO Administration Sucralfate 1 gm 04/24/18 10:00 04/25/18 09:06 Carafate Oral Susp PO 1 gm TID RODRIGO Administration Vitamin A 0.5 ea 04/10/18 14:21 04/23/18 15:56 Vitamin A & D Oint Ud Foilpak TOP 0.5 ea Q4 PRN Administration Dry mouth - Patient Studies Lab Studies: Microbiology Studies 04/22/18 14:30 Blood Culture - Preliminary Blood NO GROWTH AFTER 48 HOURS 04/22/18 14:00 Blood Culture - Preliminary Blood NO GROWTH AFTER 48 HOURS 04/22/18 15:36 Urine Culture - Final Urine,Catheterized Vancomycin Resistant E.faecium Lab Studies 04/25/18 04/25/18 04/25/18 Range/Units 06:25 06:25 06:25 WBC 20.9 H (4.8-10.8) K/uL RBC 3.15 L (3.80-5.20) Mil/uL Hgb 9.8 L (11.0-16.0) g/dL Hct 30.4 L (34.0-47.0) % MCV 96.5 (81.0-99.0) fL MCH 31.2 H (27.0-31.0) pg MCHC 32.3 L (33.0-37.0) g/dL RDW 18.0 H (11.5-14.5) % Plt Count 120 L D (130-400) K/uL MPV 11.5 (7.2-11.7) fL Neut % (Auto) 89.3 H (50.0-75.0) % Lymph % (Auto) 4.5 L (20.0-40.0) % Pettis % (Auto) 3.3 (0.0-10.0) % Eos % (Auto) 2.3 (0.0-4.0) % Baso % (Auto) 0.6 (0.0-2.0) % Neut # (Auto) 18.6 H (1.8-7.0) K/uL Lymph # (Auto) 0.9 L (1.0-4.3) K/uL Pettis # (Auto) 0.7 (0.0-0.8) K/uL Eos # (Auto) 0.5 (0.0-0.7) K/uL Baso # (Auto) 0.1 (0.0-0.2) K/uL Neutrophils % (Manual) 83 H (50-75) % Band Neutrophils % 5 H (0-2) % Lymphocytes % (Manual) 4 L (20-40) % Monocytes % (Manual) 3 Eosinophils % (Manual) 4 (0-4) % Metamyelocytes % 1 H (0-0) % Platelet Estimate Slightly decreased L (NORMAL) Large Platelets Present Polychromasia Slight Hypochromasia (manual) Slight Poikilocytosis (manual Slight Anisocytosis (manual) Moderate Schistocytes Slight PT 11.6 (9.7-12.2) SECONDS INR 1.1 APTT 57 H D (21-34) SECONDS Puncture Site pCO2 (35-45) mm/Hg pO2 (80-100) mm/Hg HCO3 (21-28) mmol/L ABG pH (7.35-7.45) ABG Total CO2 (22-28) mmol/L ABG O2 Saturation (95-98) % ABG Base Excess (-2.0-3.0) mmol/L ABG Hemoglobin (11.7-17.4) g/dL ABG Carboxyhemoglobin (0.5-1.5) % POC ABG HHb (Measured) (0.0-5.0) % ABG Methemoglobin (0.0-3.0) % Caesar Test A-a O2 Difference mm/Hg Respiratory Index Hgb O2 Saturation (95.0-98.0) % Vent Mode Mechanical Rate FiO2 % Tidal Volume PEEP Sodium 153 H (132-148) mmol/L Potassium 5.2 (3.6-5.2) mmol/L Chloride 127 H (98-107) mmol/L Carbon Dioxide 25 (22-30) mmol/L Anion Gap 6 L (10-20) BUN 55 H (7-17) mg/dL Creatinine 1.1 (0.7-1.2) mg/dL Est GFR ( Amer) 60 Est GFR (Non-Af Amer) 49 POC Glucose (mg/dL) (65-110) mg/dL Random Glucose 189 H (65-105) mg/dL Calcium 9.0 (8.6-10.4) mg/dl Phosphorus 1.0 L* (2.5-4.5) mg/dL Magnesium 2.3 (1.6-2.3) mg/dL Total Bilirubin 0.8 (0.2-1.3) mg/dL AST 268 H D (14-36) U/L ALT 905 H D (9-52) U/L Alkaline Phosphatase 124 (38-126) U/L Total Protein 4.9 L (6.3-8.3) g/dL Albumin 2.4 L (3.5-5.0) g/dL Globulin 2.5 (2.2-3.9) gm/dL Albumin/Globulin Ratio 0.9 L (1.0-2.1) 04/25/18 04/25/18 04/24/18 Range/Units 05:24 00:14 18:00 WBC (4.8-10.8) K/uL RBC (3.80-5.20) Mil/uL Hgb (11.0-16.0) g/dL Hct (34.0-47.0) % MCV (81.0-99.0) fL MCH (27.0-31.0) pg MCHC (33.0-37.0) g/dL RDW (11.5-14.5) % Plt Count (130-400) K/uL MPV (7.2-11.7) fL Neut % (Auto) (50.0-75.0) % Lymph % (Auto) (20.0-40.0) % Pettis % (Auto) (0.0-10.0) % Eos % (Auto) (0.0-4.0) % Baso % (Auto) (0.0-2.0) % Neut # (Auto) (1.8-7.0) K/uL Lymph # (Auto) (1.0-4.3) K/uL Pettis # (Auto) (0.0-0.8) K/uL Eos # (Auto) (0.0-0.7) K/uL Baso # (Auto) (0.0-0.2) K/uL Neutrophils % (Manual) (50-75) % Band Neutrophils % (0-2) % Lymphocytes % (Manual) (20-40) % Monocytes % (Manual) Eosinophils % (Manual) (0-4) % Metamyelocytes % (0-0) % Platelet Estimate (NORMAL) Large Platelets Polychromasia Hypochromasia (manual) Poikilocytosis (manual Anisocytosis (manual) Schistocytes PT (9.7-12.2) SECONDS INR APTT (21-34) SECONDS Puncture Site R rad pCO2 32 L (35-45) mm/Hg pO2 139 H (80-100) mm/Hg HCO3 23.8 (21-28) mmol/L ABG pH 7.45 (7.35-7.45) ABG Total CO2 23.2 (22-28) mmol/L ABG O2 Saturation 99.3 H (95-98) % ABG Base Excess -1.4 (-2.0-3.0) mmol/L ABG Hemoglobin 9.0 L (11.7-17.4) g/dL ABG Carboxyhemoglobin 1.7 H (0.5-1.5) % POC ABG HHb (Measured) 0.7 (0.0-5.0) % ABG Methemoglobin 1.1 (0.0-3.0) % Caesar Test Pos A-a O2 Difference 106.0 mm/Hg Respiratory Index 0.8 Hgb O2 Saturation 96.4 (95.0-98.0) % Vent Mode Prvc Mechanical Rate 14 FiO2 40.0 % Tidal Volume 350 PEEP 5 Sodium (132-148) mmol/L Potassium (3.6-5.2) mmol/L Chloride (98-107) mmol/L Carbon Dioxide (22-30) mmol/L Anion Gap (10-20) BUN (7-17) mg/dL Creatinine (0.7-1.2) mg/dL Est GFR ( Amer) Est GFR (Non-Af Amer) POC Glucose (mg/dL) 172 H 156 H (65-110) mg/dL Random Glucose (65-105) mg/dL Calcium (8.6-10.4) mg/dl Phosphorus (2.5-4.5) mg/dL Magnesium (1.6-2.3) mg/dL Total Bilirubin (0.2-1.3) mg/dL AST (14-36) U/L ALT (9-52) U/L Alkaline Phosphatase (38-126) U/L Total Protein (6.3-8.3) g/dL Albumin (3.5-5.0) g/dL Globulin (2.2-3.9) gm/dL Albumin/Globulin Ratio (1.0-2.1) 04/24/18 04/24/18 Range/Units 11:44 05:59 WBC (4.8-10.8) K/uL RBC (3.80-5.20) Mil/uL Hgb (11.0-16.0) g/dL Hct (34.0-47.0) % MCV (81.0-99.0) fL MCH (27.0-31.0) pg MCHC (33.0-37.0) g/dL RDW (11.5-14.5) % Plt Count (130-400) K/uL MPV (7.2-11.7) fL Neut % (Auto) (50.0-75.0) % Lymph % (Auto) (20.0-40.0) % Pettis % (Auto) (0.0-10.0) % Eos % (Auto) (0.0-4.0) % Baso % (Auto) (0.0-2.0) % Neut # (Auto) (1.8-7.0) K/uL Lymph # (Auto) (1.0-4.3) K/uL Pettis # (Auto) (0.0-0.8) K/uL Eos # (Auto) (0.0-0.7) K/uL Baso # (Auto) (0.0-0.2) K/uL Neutrophils % (Manual) 95 H (50-75) % Band Neutrophils % 3 H (0-2) % Lymphocytes % (Manual) 2 L (20-40) % Monocytes % (Manual) TEST NOT PERFORMED Eosinophils % (Manual) (0-4) % Metamyelocytes % (0-0) % Platelet Estimate Normal (NORMAL) Large Platelets Polychromasia Hypochromasia (manual) Poikilocytosis (manual Anisocytosis (manual) Slight Schistocytes PT (9.7-12.2) SECONDS INR APTT (21-34) SECONDS Puncture Site pCO2 (35-45) mm/Hg pO2 (80-100) mm/Hg HCO3 (21-28) mmol/L ABG pH (7.35-7.45) ABG Total CO2 (22-28) mmol/L ABG O2 Saturation (95-98) % ABG Base Excess (-2.0-3.0) mmol/L ABG Hemoglobin (11.7-17.4) g/dL ABG Carboxyhemoglobin (0.5-1.5) % POC ABG HHb (Measured) (0.0-5.0) % ABG Methemoglobin (0.0-3.0) % Caesar Test A-a O2 Difference mm/Hg Respiratory Index Hgb O2 Saturation (95.0-98.0) % Vent Mode Mechanical Rate FiO2 % Tidal Volume PEEP Sodium (132-148) mmol/L Potassium (3.6-5.2) mmol/L Chloride (98-107) mmol/L Carbon Dioxide (22-30) mmol/L Anion Gap (10-20) BUN (7-17) mg/dL Creatinine (0.7-1.2) mg/dL Est GFR ( Amer) Est GFR (Non-Af Amer) POC Glucose (mg/dL) 210 H (65-110) mg/dL Random Glucose (65-105) mg/dL Calcium (8.6-10.4) mg/dl Phosphorus (2.5-4.5) mg/dL Magnesium (1.6-2.3) mg/dL Total Bilirubin (0.2-1.3) mg/dL AST (14-36) U/L ALT (9-52) U/L Alkaline Phosphatase (38-126) U/L Total Protein (6.3-8.3) g/dL Albumin (3.5-5.0) g/dL Globulin (2.2-3.9) gm/dL Albumin/Globulin Ratio (1.0-2.1) Laboratory Results - last 24 hr 04/24/18 04/24/18 04/24/18 05:59 11:44 18:00 WBC RBC Hgb Hct MCV MCH MCHC RDW Plt Count MPV Neut % (Auto) Lymph % (Auto) Pettis % (Auto) Eos % (Auto) Baso % (Auto) Neut # (Auto) Lymph # (Auto) Pettis # (Auto) Eos # (Auto) Baso # (Auto) Neutrophils % (Manual) 95 H Band Neutrophils % 3 H Lymphocytes % (Manual) 2 L Monocytes % (Manual) TEST NOT PERFORMED Eosinophils % (Manual) Metamyelocytes % Platelet Estimate Normal Large Platelets Polychromasia Hypochromasia (manual) Poikilocytosis (manual Anisocytosis (manual) Slight Schistocytes PT INR APTT Puncture Site pCO2 pO2 HCO3 ABG pH ABG Total CO2 ABG O2 Saturation ABG Base Excess ABG Hemoglobin ABG Carboxyhemoglobin POC ABG HHb (Measured) ABG Methemoglobin Caesar Test A-a O2 Difference Respiratory Index Hgb O2 Saturation Vent Mode Mechanical Rate FiO2 Tidal Volume PEEP Sodium Potassium Chloride Carbon Dioxide Anion Gap BUN Creatinine Est GFR ( Amer) Est GFR (Non-Af Amer) POC Glucose (mg/dL) 210 H 156 H Random Glucose Calcium Phosphorus Magnesium Total Bilirubin AST ALT Alkaline Phosphatase Total Protein Albumin Globulin Albumin/Globulin Ratio 04/25/18 04/25/18 04/25/18 00:14 05:24 06:25 WBC 20.9 H RBC 3.15 L Hgb 9.8 L Hct 30.4 L MCV 96.5 MCH 31.2 H MCHC 32.3 L RDW 18.0 H Plt Count 120 L D MPV 11.5 Neut % (Auto) 89.3 H Lymph % (Auto) 4.5 L Pettis % (Auto) 3.3 Eos % (Auto) 2.3 Baso % (Auto) 0.6 Neut # (Auto) 18.6 H Lymph # (Auto) 0.9 L Pettis # (Auto) 0.7 Eos # (Auto) 0.5 Baso # (Auto) 0.1 Neutrophils % (Manual) 83 H Band Neutrophils % 5 H Lymphocytes % (Manual) 4 L Monocytes % (Manual) 3 Eosinophils % (Manual) 4 Metamyelocytes % 1 H Platelet Estimate Slightly decreased L Large Platelets Present Polychromasia Slight Hypochromasia (manual) Slight Poikilocytosis (manual Slight Anisocytosis (manual) Moderate Schistocytes Slight PT INR APTT Puncture Site R rad pCO2 32 L pO2 139 H HCO3 23.8 ABG pH 7.45 ABG Total CO2 23.2 ABG O2 Saturation 99.3 H ABG Base Excess -1.4 ABG Hemoglobin 9.0 L ABG Carboxyhemoglobin 1.7 H POC ABG HHb (Measured) 0.7 ABG Methemoglobin 1.1 Caesar Test Pos A-a O2 Difference 106.0 Respiratory Index 0.8 Hgb O2 Saturation 96.4 Vent Mode Prvc Mechanical Rate 14 FiO2 40.0 Tidal Volume 350 PEEP 5 Sodium Potassium Chloride Carbon Dioxide Anion Gap BUN Creatinine Est GFR ( Amer) Est GFR (Non-Af Amer) POC Glucose (mg/dL) 172 H Random Glucose Calcium Phosphorus Magnesium Total Bilirubin AST ALT Alkaline Phosphatase Total Protein Albumin Globulin Albumin/Globulin Ratio 04/25/18 04/25/18 06:25 06:25 WBC RBC Hgb Hct MCV MCH MCHC RDW Plt Count MPV Neut % (Auto) Lymph % (Auto) Pettis % (Auto) Eos % (Auto) Baso % (Auto) Neut # (Auto) Lymph # (Auto) Pettis # (Auto) Eos # (Auto) Baso # (Auto) Neutrophils % (Manual) Band Neutrophils % Lymphocytes % (Manual) Monocytes % (Manual) Eosinophils % (Manual) Metamyelocytes % Platelet Estimate Large Platelets Polychromasia Hypochromasia (manual) Poikilocytosis (manual Anisocytosis (manual) Schistocytes PT 11.6 INR 1.1 APTT 57 H D Puncture Site pCO2 pO2 HCO3 ABG pH ABG Total CO2 ABG O2 Saturation ABG Base Excess ABG Hemoglobin ABG Carboxyhemoglobin POC ABG HHb (Measured) ABG Methemoglobin Caesar Test A-a O2 Difference Respiratory Index Hgb O2 Saturation Vent Mode Mechanical Rate FiO2 Tidal Volume PEEP Sodium 153 H Potassium 5.2 Chloride 127 H Carbon Dioxide 25 Anion Gap 6 L BUN 55 H Creatinine 1.1 Est GFR ( Amer) 60 Est GFR (Non-Af Amer) 49 POC Glucose (mg/dL) Random Glucose 189 H Calcium 9.0 Phosphorus 1.0 L* Magnesium 2.3 Total Bilirubin 0.8 AST 268 H D ALT 905 H D Alkaline Phosphatase 124 Total Protein 4.9 L Albumin 2.4 L Globulin 2.5 Albumin/Globulin Ratio 0.9 L Radiology Impressions: Radiology Impressions Chest X-Ray 04/24/18 06:00 IMPRESSION: Stable position of support tubes. No significant interval change. 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 Pt transferred to ICU for respiratory distress/ intubated 04/22, currently weaning. Pt on heparin drip 2/2 elevated troponins likely of cardiac origin. on contact due to VRDE in urine. Possible trach/peg? DEVIN resolved, acute liver failure resolving. Possible DNI pending family meeting scheduled for 04/27. Currently DNR. Plan: Neuro - HOB 30 degrees - Intubated - CPAP trials today Cardio - aspirin 81 mg, Plavix 75 daily - Heparin ggt - Cardiology on board Pulm - ABG 7.45/32/139/23.8 - Ventilator settings AC TV 350, PEEP 5 mm Hg, rate of 14, FIO2 of 50 - Now on CPAP trials Endo - Hx of hypothyroidism - C/w Levothyroxine 100 mg IVP Heme - Hgb 9.8 s/p 2 PRBC transfusion - continue to monitor - WBC elevated 2/2 to UTI -VDRE & yeast - Febrile to >101 - Linezolid 600 Q12 04/24 started - Fluconozole 100 mg daily GI - peg tube on hold until patient stable - Upper GI bleed - Protonix 40 mg q12h - AST/ ALT downtrending Nephrology - BUN/Cr 55/1.1, DEVIN resolving - replenish electrolytes ID - Fluconazole for yeast in urine - Urine culture positive E. faecalis - Per ID, Dr. Mangia Linezolid 600 Q12 PPx: - DVT: heparin drip, SCDS - GI: Protonix 40 mg IV Q12 Disposition: Guarded, goals of care being discussed <LazaroEddie Ramirez - Last Filed: 04/25/18 14:56> CCU Objective - Vital Signs / Intake & Output Vital Signs (Last 4 hours): Vital Signs Temp Pulse Resp BP Pulse Ox 04/25/18 14:00 85 18 100 04/25/18 13:32 83 18 128/85 100 04/25/18 13:00 75 15 100 04/25/18 12:32 77 15 92/60 L 100 04/25/18 12:00 97.5 F L 79 16 100 04/25/18 11:32 79 16 85/55 L 100 04/25/18 11:00 92 H 20 100 Intake and Output (Last 8hrs): Intake & Output 04/24/18 04/25/18 04/25/18 22:59 06:59 14:59 Intake Total 1061.2 1011.2 1353.2 Output Total 300 900 Balance 761.2 111.2 1353.2 Weight 76 lb 9.6 oz Intake: IV 250 Intake, IV Amount 491.2 691.2 883.2 Left Forearm 372 Left Hand 31.2 31.2 31.2 Left Wrist 60 360 480 Right Forearm 400 300 Tube Feeding 320 320 320 Other 150 Output: Urine 300 900 Urine, Voided 300 900 Other: # Bowel Movements 0 - Medications Active Medications: Active Medications Generic Name Dose Route Start Last Admin Trade Name Freq PRN Reason Stop Dose Admin Acetaminophen 650 mg 04/23/18 11:35 04/25/18 05:04 Tylenol 650mg/20.3ml Solution Ud PO 650 mg Q4H PRN Administration Temperature Fever >100.4 F Aspirin 81 mg 04/23/18 10:00 04/25/18 09:06 Aspirin Chewable PO 81 mg DAILY RODRIGO Administration Clopidogrel Bisulfate 75 mg 04/23/18 10:00 04/25/18 09:06 Plavix PO 75 mg DAILY RODRIGO Administration Ferrous Sulfate 300 mg 04/19/18 19:00 04/25/18 13:02 Feosol Liq PO 300 mg TID RODRIGO Administration Fluconazole 100 mls @ 100 mls/hr 04/14/18 18:30 04/24/18 19:00 Diflucan Iv 200 Mg/100 Ml Ns IVPB 100 mls/hr Q24H RODRIGO Administration Protocol Heparin Sodium/Sodium Chloride 25,000 units in 250 mls @ 3.919 mls/hr 04/22/18 16:17 04/24/18 20:52 Heparin 53811 Units/250ml 1/2 Normal Saline IV 12 units/kg/hr .Q24H PRN 3.919 mls/hr ADJUST RATE PER PROTOCOL Administration Protocol 12 UNITS/KG/HR Linezolid 600 mg in 300 mls @ 200 mls/hr 04/24/18 18:00 04/25/18 05:03 Zyvox 600mg/300ml D5w IVPB 200 mls/hr Q12H RODRIGO Administration Protocol Dextrose 1,000 mls @ 60 mls/hr 04/24/18 19:15 04/25/18 12:57 Dextrose 5% In Water 1000 Ml IV 60 mls/hr .[id number] RODRIGO Administration Sodium Phosphate 15 mmole/ 255 mls @ 50 mls/hr 04/25/18 13:00 04/25/18 13:47 Sodium Chloride IVPB 04/25/18 18:05 50 mls/hr .Q5H6M ONE Administration Insulin Aspart 0 unit 04/12/18 18:00 04/25/18 12:31 Novolog SC Not Given Q6H RODRIGO Protocol Levothyroxine Sodium 100 mcg 04/22/18 10:00 04/25/18 09:07 Synthroid IVP 100 mcg DAILY RODRIGO Administration Multivitamins 1 tab 04/18/18 10:00 04/25/18 09:06 Hexavitamin PO 1 tab DAILY RODRIGO Administration Pantoprazole Sodium 40 mg 04/23/18 14:45 04/25/18 13:48 Protonix Inj IVP 40 mg Q12H RODRIGO Administration Potassium Phos/Sodium Phos 1 pkt 04/25/18 10:00 04/25/18 13:02 Neutra-Phos PO 04/27/18 10:01 1 pkt TID RODRIGO Administration Rosuvastatin Calcium 5 mg 04/10/18 22:00 04/24/18 22:00 Crestor PO 5 mg HS RODRIGO Administration Sucralfate 1 gm 04/24/18 10:00 04/25/18 13:02 Carafate Oral Susp PO 1 gm TID RODRIGO Administration Vitamin A 0.5 ea 04/10/18 14:21 04/23/18 15:56 Vitamin A & D Oint Ud Foilpak TOP 0.5 ea Q4 PRN Administration Dry mouth - Patient Studies Lab Studies: Microbiology Studies 04/22/18 14:30 Blood Culture - Preliminary Blood NO GROWTH AFTER 48 HOURS 04/22/18 14:00 Blood Culture - Preliminary Blood NO GROWTH AFTER 48 HOURS Lab Studies 04/25/18 04/25/18 04/25/18 Range/Units 12:20 06:25 06:25 WBC (4.8-10.8) K/uL RBC (3.80-5.20) Mil/uL Hgb (11.0-16.0) g/dL Hct (34.0-47.0) % MCV (81.0-99.0) fL MCH (27.0-31.0) pg MCHC (33.0-37.0) g/dL RDW (11.5-14.5) % Plt Count (130-400) K/uL MPV (7.2-11.7) fL Neut % (Auto) (50.0-75.0) % Lymph % (Auto) (20.0-40.0) % Pettis % (Auto) (0.0-10.0) % Eos % (Auto) (0.0-4.0) % Baso % (Auto) (0.0-2.0) % Neut # (Auto) (1.8-7.0) K/uL Lymph # (Auto) (1.0-4.3) K/uL Pettis # (Auto) (0.0-0.8) K/uL Eos # (Auto) (0.0-0.7) K/uL Baso # (Auto) (0.0-0.2) K/uL Neutrophils % (Manual) (50-75) % Band Neutrophils % (0-2) % Lymphocytes % (Manual) (20-40) % Monocytes % (Manual) (0-10) % Eosinophils % (Manual) (0-4) % Metamyelocytes % (0-0) % Platelet Estimate (NORMAL) Large Platelets Polychromasia Hypochromasia (manual) Poikilocytosis (manual Anisocytosis (manual) Schistocytes PT 11.6 (9.7-12.2) SECONDS INR 1.1 APTT 57 H D (21-34) SECONDS Puncture Site pCO2 (35-45) mm/Hg pO2 (80-100) mm/Hg HCO3 (21-28) mmol/L ABG pH (7.35-7.45) ABG Total CO2 (22-28) mmol/L ABG O2 Saturation (95-98) % ABG Base Excess (-2.0-3.0) mmol/L ABG Hemoglobin (11.7-17.4) g/dL ABG Carboxyhemoglobin (0.5-1.5) % POC ABG HHb (Measured) (0.0-5.0) % ABG Methemoglobin (0.0-3.0) % Caesar Test A-a O2 Difference mm/Hg Respiratory Index Hgb O2 Saturation (95.0-98.0) % Vent Mode Mechanical Rate FiO2 % Tidal Volume PEEP Sodium 153 H (132-148) mmol/L Potassium 5.2 (3.6-5.2) mmol/L Chloride 127 H (98-107) mmol/L Carbon Dioxide 25 (22-30) mmol/L Anion Gap 6 L (10-20) BUN 55 H (7-17) mg/dL Creatinine 1.1 (0.7-1.2) mg/dL Est GFR ( Amer) 60 Est GFR (Non-Af Amer) 49 POC Glucose (mg/dL) 170 H (65-110) mg/dL Random Glucose 189 H (65-105) mg/dL Calcium 9.0 (8.6-10.4) mg/dl Phosphorus 1.0 L* (2.5-4.5) mg/dL Magnesium 2.3 (1.6-2.3) mg/dL Total Bilirubin 0.8 (0.2-1.3) mg/dL AST 268 H D (14-36) U/L ALT 905 H D (9-52) U/L Alkaline Phosphatase 124 (38-126) U/L Total Protein 4.9 L (6.3-8.3) g/dL Albumin 2.4 L (3.5-5.0) g/dL Globulin 2.5 (2.2-3.9) gm/dL Albumin/Globulin Ratio 0.9 L (1.0-2.1) 04/25/18 04/25/18 04/25/18 Range/Units 06:25 05:24 00:14 WBC 20.9 H (4.8-10.8) K/uL RBC 3.15 L (3.80-5.20) Mil/uL Hgb 9.8 L (11.0-16.0) g/dL Hct 30.4 L (34.0-47.0) % MCV 96.5 (81.0-99.0) fL MCH 31.2 H (27.0-31.0) pg MCHC 32.3 L (33.0-37.0) g/dL RDW 18.0 H (11.5-14.5) % Plt Count 120 L D (130-400) K/uL MPV 11.5 (7.2-11.7) fL Neut % (Auto) 89.3 H (50.0-75.0) % Lymph % (Auto) 4.5 L (20.0-40.0) % Pettis % (Auto) 3.3 (0.0-10.0) % Eos % (Auto) 2.3 (0.0-4.0) % Baso % (Auto) 0.6 (0.0-2.0) % Neut # (Auto) 18.6 H (1.8-7.0) K/uL Lymph # (Auto) 0.9 L (1.0-4.3) K/uL Pettis # (Auto) 0.7 (0.0-0.8) K/uL Eos # (Auto) 0.5 (0.0-0.7) K/uL Baso # (Auto) 0.1 (0.0-0.2) K/uL Neutrophils % (Manual) 83 H (50-75) % Band Neutrophils % 5 H (0-2) % Lymphocytes % (Manual) 4 L (20-40) % Monocytes % (Manual) 3 (0-10) % Eosinophils % (Manual) 4 (0-4) % Metamyelocytes % 1 H (0-0) % Platelet Estimate Slightly decreased L (NORMAL) Large Platelets Present Polychromasia Slight Hypochromasia (manual) Slight Poikilocytosis (manual Slight Anisocytosis (manual) Moderate Schistocytes Slight PT (9.7-12.2) SECONDS INR APTT (21-34) SECONDS Puncture Site R rad pCO2 32 L (35-45) mm/Hg pO2 139 H (80-100) mm/Hg HCO3 23.8 (21-28) mmol/L ABG pH 7.45 (7.35-7.45) ABG Total CO2 23.2 (22-28) mmol/L ABG O2 Saturation 99.3 H (95-98) % ABG Base Excess -1.4 (-2.0-3.0) mmol/L ABG Hemoglobin 9.0 L (11.7-17.4) g/dL ABG Carboxyhemoglobin 1.7 H (0.5-1.5) % POC ABG HHb (Measured) 0.7 (0.0-5.0) % ABG Methemoglobin 1.1 (0.0-3.0) % Caesar Test Pos A-a O2 Difference 106.0 mm/Hg Respiratory Index 0.8 Hgb O2 Saturation 96.4 (95.0-98.0) % Vent Mode Prvc Mechanical Rate 14 FiO2 40.0 % Tidal Volume 350 PEEP 5 Sodium (132-148) mmol/L Potassium (3.6-5.2) mmol/L Chloride (98-107) mmol/L Carbon Dioxide (22-30) mmol/L Anion Gap (10-20) BUN (7-17) mg/dL Creatinine (0.7-1.2) mg/dL Est GFR ( Amer) Est GFR (Non-Af Amer) POC Glucose (mg/dL) 172 H (65-110) mg/dL Random Glucose (65-105) mg/dL Calcium (8.6-10.4) mg/dl Phosphorus (2.5-4.5) mg/dL Magnesium (1.6-2.3) mg/dL Total Bilirubin (0.2-1.3) mg/dL AST (14-36) U/L ALT (9-52) U/L Alkaline Phosphatase (38-126) U/L Total Protein (6.3-8.3) g/dL Albumin (3.5-5.0) g/dL Globulin (2.2-3.9) gm/dL Albumin/Globulin Ratio (1.0-2.1) 04/24/18 Range/Units 18:00 WBC (4.8-10.8) K/uL RBC (3.80-5.20) Mil/uL Hgb (11.0-16.0) g/dL Hct (34.0-47.0) % MCV (81.0-99.0) fL MCH (27.0-31.0) pg MCHC (33.0-37.0) g/dL RDW (11.5-14.5) % Plt Count (130-400) K/uL MPV (7.2-11.7) fL Neut % (Auto) (50.0-75.0) % Lymph % (Auto) (20.0-40.0) % Pettis % (Auto) (0.0-10.0) % Eos % (Auto) (0.0-4.0) % Baso % (Auto) (0.0-2.0) % Neut # (Auto) (1.8-7.0) K/uL Lymph # (Auto) (1.0-4.3) K/uL Pettis # (Auto) (0.0-0.8) K/uL Eos # (Auto) (0.0-0.7) K/uL Baso # (Auto) (0.0-0.2) K/uL Neutrophils % (Manual) (50-75) % Band Neutrophils % (0-2) % Lymphocytes % (Manual) (20-40) % Monocytes % (Manual) (0-10) % Eosinophils % (Manual) (0-4) % Metamyelocytes % (0-0) % Platelet Estimate (NORMAL) Large Platelets Polychromasia Hypochromasia (manual) Poikilocytosis (manual Anisocytosis (manual) Schistocytes PT (9.7-12.2) SECONDS INR APTT (21-34) SECONDS Puncture Site pCO2 (35-45) mm/Hg pO2 (80-100) mm/Hg HCO3 (21-28) mmol/L ABG pH (7.35-7.45) ABG Total CO2 (22-28) mmol/L ABG O2 Saturation (95-98) % ABG Base Excess (-2.0-3.0) mmol/L ABG Hemoglobin (11.7-17.4) g/dL ABG Carboxyhemoglobin (0.5-1.5) % POC ABG HHb (Measured) (0.0-5.0) % ABG Methemoglobin (0.0-3.0) % Caesar Test A-a O2 Difference mm/Hg Respiratory Index Hgb O2 Saturation (95.0-98.0) % Vent Mode Mechanical Rate FiO2 % Tidal Volume PEEP Sodium (132-148) mmol/L Potassium (3.6-5.2) mmol/L Chloride (98-107) mmol/L Carbon Dioxide (22-30) mmol/L Anion Gap (10-20) BUN (7-17) mg/dL Creatinine (0.7-1.2) mg/dL Est GFR ( Amer) Est GFR (Non-Af Amer) POC Glucose (mg/dL) 156 H (65-110) mg/dL Random Glucose (65-105) mg/dL Calcium (8.6-10.4) mg/dl Phosphorus (2.5-4.5) mg/dL Magnesium (1.6-2.3) mg/dL Total Bilirubin (0.2-1.3) mg/dL AST (14-36) U/L ALT (9-52) U/L Alkaline Phosphatase (38-126) U/L Total Protein (6.3-8.3) g/dL Albumin (3.5-5.0) g/dL Globulin (2.2-3.9) gm/dL Albumin/Globulin Ratio (1.0-2.1) Laboratory Results - last 24 hr 04/24/18 04/25/18 04/25/18 18:00 00:14 05:24 WBC RBC Hgb Hct MCV MCH MCHC RDW Plt Count MPV Neut % (Auto) Lymph % (Auto) Pettis % (Auto) Eos % (Auto) Baso % (Auto) Neut # (Auto) Lymph # (Auto) [place]is # (Auto) Eos # (Auto) Baso # (Auto) Neutrophils % (Manual) Band Neutrophils % Lymphocytes % (Manual) Monocytes % (Manual) Eosinophils % (Manual) Metamyelocytes % Platelet Estimate Large Platelets Polychromasia Hypochromasia (manual) Poikilocytosis (manual Anisocytosis (manual) Schistocytes PT INR APTT Puncture Site R rad pCO2 32 L pO2 139 H HCO3 23.8 ABG pH 7.45 ABG Total CO2 23.2 ABG O2 Saturation 99.3 H ABG Base Excess -1.4 ABG Hemoglobin 9.0 L ABG Carboxyhemoglobin 1.7 H POC ABG HHb (Measured) 0.7 ABG Methemoglobin 1.1 Caesar Test Pos A-a O2 Difference 106.0 Respiratory Index 0.8 Hgb O2 Saturation 96.4 Vent Mode Prvc Mechanical Rate 14 FiO2 40.0 Tidal Volume 350 PEEP 5 Sodium Potassium Chloride Carbon Dioxide Anion Gap BUN Creatinine Est GFR ( Amer) Est GFR (Non-Af Amer) POC Glucose (mg/dL) 156 H 172 H Random Glucose Calcium Phosphorus Magnesium Total Bilirubin AST ALT Alkaline Phosphatase Total Protein Albumin Globulin Albumin/Globulin Ratio 04/25/18 04/25/18 04/25/18 06:25 06:25 06:25 WBC 20.9 H RBC 3.15 L Hgb 9.8 L Hct 30.4 L MCV 96.5 MCH 31.2 H MCHC 32.3 L RDW 18.0 H Plt Count 120 L D MPV 11.5 Neut % (Auto) 89.3 H Lymph % (Auto) 4.5 L Pettis % (Auto) 3.3 Eos % (Auto) 2.3 Baso % (Auto) 0.6 Neut # (Auto) 18.6 H Lymph # (Auto) 0.9 L [place]is # (Auto) 0.7 Eos # (Auto) 0.5 Baso # (Auto) 0.1 Neutrophils % (Manual) 83 H Band Neutrophils % 5 H Lymphocytes % (Manual) 4 L Monocytes % (Manual) 3 Eosinophils % (Manual) 4 Metamyelocytes % 1 H Platelet Estimate Slightly decreased L Large Platelets Present Polychromasia Slight Hypochromasia (manual) Slight Poikilocytosis (manual Slight Anisocytosis (manual) Moderate Schistocytes Slight PT 11.6 INR 1.1 APTT 57 H D Puncture Site pCO2 pO2 HCO3 ABG pH ABG Total CO2 ABG O2 Saturation ABG Base Excess ABG Hemoglobin ABG Carboxyhemoglobin POC ABG HHb (Measured) ABG Methemoglobin Caesar Test A-a O2 Difference Respiratory Index Hgb O2 Saturation Vent Mode Mechanical Rate FiO2 Tidal Volume PEEP Sodium 153 H Potassium 5.2 Chloride 127 H Carbon Dioxide 25 Anion Gap 6 L BUN 55 H Creatinine 1.1 Est GFR ( Amer) 60 Est GFR (Non-Af Amer) 49 POC Glucose (mg/dL) Random Glucose 189 H Calcium 9.0 Phosphorus 1.0 L* Magnesium 2.3 Total Bilirubin 0.8 AST 268 H D ALT 905 H D Alkaline Phosphatase 124 Total Protein 4.9 L Albumin 2.4 L Globulin 2.5 Albumin/Globulin Ratio 0.9 L 04/25/18 12:20 WBC RBC Hgb Hct MCV MCH MCHC RDW Plt Count MPV Neut % (Auto) Lymph % (Auto) Pettis % (Auto) Eos % (Auto) Baso % (Auto) Neut # (Auto) Lymph # (Auto) P[place]is # (Auto) Eos # (Auto) Baso # (Auto) Neutrophils % (Manual) Band Neutrophils % Lymphocytes % (Manual) Monocytes % (Manual) Eosinophils % (Manual) Metamyelocytes % Platelet Estimate Large Platelets Polychromasia Hypochromasia (manual) Poikilocytosis (manual Anisocytosis (manual) Schistocytes PT INR APTT Puncture Site pCO2 pO2 HCO3 ABG pH ABG Total CO2 ABG O2 Saturation ABG Base Excess ABG Hemoglobin ABG Carboxyhemoglobin POC ABG HHb (Measured) ABG Methemoglobin Caesar Test A-a O2 Difference Respiratory Index Hgb O2 Saturation Vent Mode Mechanical Rate FiO2 Tidal Volume PEEP Sodium Potassium Chloride Carbon Dioxide Anion Gap BUN Creatinine Est GFR ( Amer) Est GFR (Non-Af Amer) POC Glucose (mg/dL) 170 H Random Glucose Calcium Phosphorus Magnesium Total Bilirubin AST ALT Alkaline Phosphatase Total Protein Albumin Globulin Albumin/Globulin Ratio Radiology Impressions: Radiology Impressions Chest X-Ray 04/25/18 07:06 IMPRESSION: No active disease. Assessment/Plan - Assessment and Plan (Free Text) Plan: Patient seen and examined at bedside with above resident. -no change in neurological statu -not candidate for extubation 2nd mental status, tolerating CPAP -prognosis poor -family may agree to trach and peg. -hypernatremia: slowly improving -contineu abx as per ID continue ventilation and tube feeds d/w ICu team - Date & Time Date: 04/25/18 Time: 14:56
--- NOTE | 2018-04-25 10:14 | RAD ---
Date of service: 04/25/2018 HISTORY: intubated COMPARISON: 04/24/2018 FINDINGS: LUNGS: No active pulmonary disease. PLEURA: No significant pleural effusion identified, no pneumothorax apparent. CARDIOVASCULAR: No aortic atherosclerotic calcification present. Normal cardiac size. No congestive change. ET tube and NG tube unchanged. OSSEOUS STRUCTURES: No significant abnormalities. VISUALIZED UPPER ABDOMEN: Normal. OTHER FINDINGS: None. IMPRESSION: No active disease.
--- NOTE | 2018-04-25 14:06 | PN ---
DATE: 04/25/2018 ENDOCRINOLOGY FOLLOWUP NOTE LOCATION: ICU room 10. SUBJECTIVE: This is a 67-year-old female with recent acute respiratory failure and remains endotracheally intubated and sedated at this time. Still unresponsive and is now being followed closely for metabolic management. LABORATORY DATA: Her white count remains elevated at 18,000 today with a hemoglobin of 11, hematocrit of 34; and chemistry showed a BUN of 55, sodium 153, potassium 5.2, chloride 127, CO2 is 25, glucose is 189, and creatinine is 1.1. Her liver transaminases remain elevated as noted. Her thyroxine value showed a T4 of 4.32 with a TSH of 0.59 which has remarkably improved biochemically as noted. ASSESSMENT AND PLAN: She also has an underlying multinodular goiter with a dominant right thyroid nodule for which the fine needle aspiration biopsy was deferred because of the aforementioned medical condition. She also has possible pancreatic carcinoma which is markedly elevated. CA 19-9 cancer markers as noted. We will continue the present supportive and symptomatic management as per the family's wish. We will continue the levothyroxine given at 100 mcg once daily intravenous push as given. We will obtain serial chemistries and supplement accordingly as needed. We will follow. Akiko Erazo MD
--- NOTE | 2018-04-25 15:08 | CP.PCM.PN ---
Subjective - Date & Time of Evaluation Date of Evaluation: 04/25/18 Time of Evaluation: 02:15 - Subjective Subjective: chart review labs noted high WBC remained intubated in ICU patient seen respiratory =cpap trial ongoing remained intubated with no sponataneous movement arms becoming edematous and daughter by bedside, inquired on PEG and thyroid biopsy- discussed condition of patient and GI notes . they will have another family meeting with hospice Objective - Vital Signs/Intake and Output Vital Signs (last 24 hours): Temp Pulse Resp BP Pulse Ox 97.5 F L 85 18 128/85 100 04/25/18 12:00 04/25/18 14:00 04/25/18 14:00 04/25/18 13:32 04/25/18 14:00 Intake and Output: 04/25/18 04/25/18 06:59 18:59 Intake Total 1896.8 1353.2 Output Total 1000 Balance 896.8 1353.2 - Medications Medications: Current Medications Acetaminophen (Tylenol 650mg/20.3ml Solution Ud) 650 mg PO Q4H PRN PRN Reason: Temperature Fever >100.4 F Last Admin: 04/25/18 05:04 Dose: 650 mg Aspirin (Aspirin Chewable) 81 mg PO DAILY [facility] Last Admin: 04/25/18 09:06 Dose: 81 mg Clopidogrel Bisulfate (Plavix) 75 mg PO DAILY [facility] Last Admin: 04/25/18 09:06 Dose: 75 mg Ferrous Sulfate (Feosol Liq) 300 mg PO TID [facility] Last Admin: 04/25/18 13:02 Dose: 300 mg Fluconazole (Diflucan Iv 200 Mg/100 Ml Ns) 100 mls @ 100 mls/hr IVPB Q24H [facility]; Protocol Last Admin: 04/24/18 19:00 Dose: 100 mls/hr Heparin Sodium/Sodium Chloride (Heparin 13638 Units/250ml 1/2 Normal Saline) 25,000 units in 250 mls @ 3.919 mls/hr IV .Q24H PRN; Protocol PRN Reason: ADJUST RATE PER PROTOCOL Last Admin: 04/24/18 20:52 Dose: 12 units/kg/hr, 3.919 mls/hr Linezolid (Zyvox 600mg/300ml D5w) 600 mg in 300 mls @ 200 mls/hr IVPB Q12H [facility]; Protocol Last Admin: 04/25/18 05:03 Dose: 200 mls/hr Dextrose (Dextrose 5% In Water 1000 Ml) 1,000 mls @ 60 mls/hr IV .[id number] [facility] Last Admin: 04/25/18 12:57 Dose: 60 mls/hr Sodium Phosphate 15 mmole/ (Sodium Chloride) 255 mls @ 50 mls/hr IVPB .Q5H6M ONE Stop: 04/25/18 18:05 Last Admin: 04/25/18 13:47 Dose: 50 mls/hr Insulin Aspart (Novolog) 0 unit SC Q6H [facility]; Protocol Last Admin: 04/25/18 12:31 Dose: Not Given Levothyroxine Sodium (Synthroid) 100 mcg IVP DAILY [facility] Last Admin: 04/25/18 09:07 Dose: 100 mcg Multivitamins (Hexavitamin) 1 tab PO DAILY [facility] Last Admin: 04/25/18 09:06 Dose: 1 tab Pantoprazole Sodium (Protonix Inj) 40 mg IVP Q12H [facility] Last Admin: 04/25/18 13:48 Dose: 40 mg Potassium Phos/Sodium Phos (Neutra-Phos) 1 pkt PO TID [facility] Stop: 04/27/18 10:01 Last Admin: 04/25/18 13:02 Dose: 1 pkt Rosuvastatin Calcium (Crestor) 5 mg PO HS [facility] Last Admin: 04/24/18 22:00 Dose: 5 mg Sucralfate (Carafate Oral Susp) 1 gm PO TID [facility] Last Admin: 04/25/18 13:02 Dose: 1 gm Vitamin A (Vitamin A & D Oint Ud Foilpak) 0.5 ea TOP Q4 PRN PRN Reason: Dry mouth Last Admin: 04/23/18 15:56 Dose: 0.5 ea - Labs Labs: 04/25/18 06:25 04/25/18 06:25 PT 11.6 SECONDS (9.7-12.2) 04/25/18 06:25 INR 1.1 04/25/18 06:25 APTT 57 SECONDS (21-34) H D 04/25/18 06:25 - Constitutional Appears: Chronically Ill (ventilator dependent, no sponataneous movement , no facial swelling , looks cachectic, no abdominal distention) Assessment and Plan - Assessment and Plan (Free Text) Assessment: patient with respiratory failure ventilatr dependent CVA CHF cad a fib metastaic lesions with poor prognosis for hospice care family waiting for other members of the family
--- NOTE | 2018-04-25 16:18 | CP.PCM.PN ---
Subjective - Date & Time of Evaluation Date of Evaluation: 04/25/18 Time of Evaluation: 16:18 - Subjective Subjective: pt is seen and examined, follow up consult is dictated #[phone] Objective - Vital Signs/Intake and Output Vital Signs (last 24 hours): Temp Pulse Resp BP Pulse Ox 97.5 F L 74 14 99/68 L 100 04/25/18 12:00 04/25/18 15:00 04/25/18 15:00 04/25/18 14:32 04/25/18 15:00 Intake and Output: 04/25/18 04/25/18 06:59 18:59 Intake Total 1896.8 1619.1 Output Total 1000 Balance 896.8 1619.1 - Medications Medications: Current Medications Acetaminophen (Tylenol 650mg/20.3ml Solution Ud) 650 mg PO Q4H PRN PRN Reason: Temperature Fever >100.4 F Last Admin: 04/25/18 05:04 Dose: 650 mg Aspirin (Aspirin Chewable) 81 mg PO DAILY [facility] Last Admin: 04/25/18 09:06 Dose: 81 mg Clopidogrel Bisulfate (Plavix) 75 mg PO DAILY [facility] Last Admin: 04/25/18 09:06 Dose: 75 mg Ferrous Sulfate (Feosol Liq) 300 mg PO TID [facility] Last Admin: 04/25/18 13:02 Dose: 300 mg Fluconazole (Diflucan Iv 200 Mg/100 Ml Ns) 100 mls @ 100 mls/hr IVPB Q24H [facility]; Protocol Last Admin: 04/24/18 19:00 Dose: 100 mls/hr Heparin Sodium/Sodium Chloride (Heparin 06823 Units/250ml 1/2 Normal Saline) 25,000 units in 250 mls @ 3.919 mls/hr IV .Q24H PRN; Protocol PRN Reason: ADJUST RATE PER PROTOCOL Last Admin: 04/24/18 20:52 Dose: 12 units/kg/hr, 3.919 mls/hr Linezolid (Zyvox 600mg/300ml D5w) 600 mg in 300 mls @ 200 mls/hr IVPB Q12H [facility]; Protocol Last Admin: 04/25/18 05:03 Dose: 200 mls/hr Dextrose (Dextrose 5% In Water 1000 Ml) 1,000 mls @ 60 mls/hr IV .[id number] [facility] Last Admin: 04/25/18 12:57 Dose: 60 mls/hr Sodium Phosphate 15 mmole/ (Sodium Chloride) 255 mls @ 50 mls/hr IVPB .Q5H6M ONE Stop: 04/25/18 18:05 Last Admin: 04/25/18 13:47 Dose: 50 mls/hr Insulin Aspart (Novolog) 0 unit SC Q6H [facility]; Protocol Last Admin: 04/25/18 12:31 Dose: Not Given Levothyroxine Sodium (Synthroid) 100 mcg IVP DAILY [facility] Last Admin: 04/25/18 09:07 Dose: 100 mcg Multivitamins (Hexavitamin) 1 tab PO DAILY [facility] Last Admin: 04/25/18 09:06 Dose: 1 tab Pantoprazole Sodium (Protonix Inj) 40 mg IVP Q12H [facility] Last Admin: 04/25/18 13:48 Dose: 40 mg Potassium Phos/Sodium Phos (Neutra-Phos) 1 pkt PO TID [facility] Stop: 04/27/18 10:01 Last Admin: 04/25/18 13:02 Dose: 1 pkt Rosuvastatin Calcium (Crestor) 5 mg PO HS [facility] Last Admin: 04/24/18 22:00 Dose: 5 mg Sucralfate (Carafate Oral Susp) 1 gm PO TID [facility] Last Admin: 04/25/18 13:02 Dose: 1 gm Vitamin A (Vitamin A & D Oint Ud Foilpak) 0.5 ea TOP Q4 PRN PRN Reason: Dry mouth Last Admin: 04/23/18 15:56 Dose: 0.5 ea - Labs Labs: 04/25/18 06:25 04/25/18 06:25 PT 11.6 SECONDS (9.7-12.2) 04/25/18 06:25 INR 1.1 04/25/18 06:25 APTT 57 SECONDS (21-34) H D 04/25/18 06:25
[2018-04-25] MEDS: Fluconazole IV 200mg/100 ml NS 100 ML IVPB SCH (18:15)
--- NOTE | 2018-04-25 19:45 | CP.PCM.PN ---
Subjective - Date & Time of Evaluation Date of Evaluation: 04/25/18 Time of Evaluation: 17:00 - Subjective Subjective: Patient seen and examined On ventilatory support No response to tactile stimuli Objective - Vital Signs/Intake and Output Vital Signs (last 24 hours): Temp Pulse Resp BP Pulse Ox 99.1 F 96 H 20 140/92 H 100 04/25/18 16:00 04/25/18 18:59 04/25/18 18:59 04/25/18 19:00 04/25/18 18:59 Intake and Output: 04/25/18 04/26/18 18:59 06:59 Intake Total 2434.8 103.9 Output Total 100 Balance 2334.8 103.9 - Medications Medications: Current Medications Acetaminophen (Tylenol 650mg/20.3ml Solution Ud) 650 mg PO Q4H PRN PRN Reason: Temperature Fever >100.4 F Last Admin: 04/25/18 05:04 Dose: 650 mg Aspirin (Aspirin Chewable) 81 mg PO DAILY [facility] Last Admin: 04/25/18 09:06 Dose: 81 mg Clopidogrel Bisulfate (Plavix) 75 mg PO DAILY [facility] Last Admin: 04/25/18 09:06 Dose: 75 mg Ferrous Sulfate (Feosol Liq) 300 mg PO TID [facility] Last Admin: 04/25/18 17:14 Dose: 300 mg Fluconazole (Diflucan Iv 200 Mg/100 Ml Ns) 100 mls @ 100 mls/hr IVPB Q24H [facility]; Protocol Last Admin: 04/25/18 18:15 Dose: 100 mls/hr Heparin Sodium/Sodium Chloride (Heparin 70666 Units/250ml 1/2 Normal Saline) 25,000 units in 250 mls @ 3.919 mls/hr IV .Q24H PRN; Protocol PRN Reason: ADJUST RATE PER PROTOCOL Last Admin: 04/24/18 20:52 Dose: 12 units/kg/hr, 3.919 mls/hr Linezolid (Zyvox 600mg/300ml D5w) 600 mg in 300 mls @ 200 mls/hr IVPB Q12H [facility]; Protocol Last Admin: 04/25/18 17:08 Dose: 200 mls/hr Dextrose (Dextrose 5% In Water 1000 Ml) 1,000 mls @ 60 mls/hr IV .[id number] [facility] Last Admin: 04/25/18 12:57 Dose: 60 mls/hr Insulin Aspart (Novolog) 0 unit SC Q6H [facility]; Protocol Last Admin: 04/25/18 17:56 Dose: Not Given Levothyroxine Sodium (Synthroid) 100 mcg IVP DAILY [facility] Last Admin: 04/25/18 09:07 Dose: 100 mcg Multivitamins (Hexavitamin) 1 tab PO DAILY [facility] Last Admin: 04/25/18 09:06 Dose: 1 tab Pantoprazole Sodium (Protonix Inj) 40 mg IVP Q12H [facility] Last Admin: 04/25/18 13:48 Dose: 40 mg Potassium Phos/Sodium Phos (Neutra-Phos) 1 pkt PO TID [facility] Stop: 04/27/18 10:01 Last Admin: 04/25/18 17:14 Dose: 1 pkt Rosuvastatin Calcium (Crestor) 5 mg PO HS [facility] Last Admin: 04/24/18 22:00 Dose: 5 mg Sucralfate (Carafate Oral Susp) 1 gm PO TID [facility] Last Admin: 04/25/18 17:14 Dose: 1 gm Vitamin A (Vitamin A & D Oint Ud Foilpak) 0.5 ea TOP Q4 PRN PRN Reason: Dry mouth Last Admin: 04/23/18 15:56 Dose: 0.5 ea - Labs Labs: 04/25/18 06:25 04/25/18 06:25 PT 11.6 SECONDS (9.7-12.2) 04/25/18 06:25 INR 1.1 04/25/18 06:25 APTT 57 SECONDS (21-34) H D 04/25/18 06:25 - Head Exam Head Exam: ATRAUMATIC, NORMOCEPHALIC - ENT Exam ENT Exam: Mucous Membranes Moist - Respiratory Exam Respiratory Exam: Clear to Ausculation Bilateral - Cardiovascular Exam Cardiovascular Exam: REGULAR RHYTHM - GI/Abdominal Exam GI & Abdominal Exam: Soft Assessment and Plan (1) Acute respiratory failure Assessment & Plan: Continue ventilatory support Possible trach and PEG as per family Prognosis poor Status: Acute (2) NSTEMI (non-ST elevated myocardial infarction) Status: Acute (3) CVA (cerebral vascular accident) Status: Acute (4) Metastatic cancer Status: Acute (5) COPD exacerbation Status: Acute
--- NOTE | 2018-04-26 01:33 | PN ---
DATE: 04/25/2018 FOLLOWUP RENAL CONSULTATION LOCATION: The patient is located in ICU, bed 10. SUBJECTIVE: Mrs. Gonzalez is a 67-year-old elderly very thin-built, cachectic [place] female with a past medical history significant for hypertension, coronary artery disease, status post stent placement, CVA with right-sided weakness, COPD, multiple admissions who was initially admitted from the snf with altered mental status and respiratory failure, status post intubation and requiring admission to ICU. Subsequently, the patient was extubated and also found to have hypernatremia and acute renal failure, requiring initiation of the gentle IV hydration. Subsequently, the patient was transferred to medical floor where she sustained a syncopal episode and found to have acute FL. Subsequently, the patient was transferred back to ICU, intubated. The patient remains intubated, not responding to verbal stimuli, tried to move left upper extremity and lower extremity slightly with painful stimuli. Remains intubated on CPAP with a pressure support of 10, PEEP of 5, FiO2 of 50%. PHYSICAL EXAMINATION: VITAL SIGNS: As follows: Blood pressure 119/80, pulse 84, respiration 19, saturation 100%, and temperature is 99.1 and T-max is 101. GENERAL: Mrs. Gonzalez is a 67-year-old very thin-built, cachectic [place] female, on ventilator, not responding to verbal stimuli. HEENT: Pupils are normal. Conjunctivae pink. Sclerae anicteric, on ventilator. Trachea midline. No thyroid enlargement. LUNGS: Symmetric on both sides. Bilateral breath sounds present. No crackles. CARDIOVASCULAR SYSTEM: [place] at the fifth intercostal space, midclavicular line. S1 and S2. No murmur or gallop. ABDOMEN: Normal in appearance, soft, tympanitic. No guarding. No rigidity. No hepatosplenomegaly. CENTRAL NERVOUS SYSTEM: The patient is on ventilator, not responding to verbal stimuli, slightly moving left upper extremity and lower extremity with deep pain. EXTREMITIES: No cyanosis, no clubbing, no edema. CURRENT MEDICATIONS: Include as follows: Aspirin 81 mg p.o. daily, Carafate 1 g p.o. t.i.d., Crestor is on hold, IV fluids D5W at 60 mL per hour, fluconazole 200 mg IV every 24 hours, Feosol liquid 300 mg p.o. t.i.d., IV heparin 12 units/kg per hour, multivitamins, Neutra-Phos one packet p.o. t.i.d., Plavix 75 mg p.o. daily, Protonix 40 mg IV every 12 hours, Synthroid 100 mcg IV daily, Tylenol, vitamin A and D ointment, and Zyvox 600 mg IV piggyback every 12 hours. LABORATORY DATA: Include as follows: As of 04/25/2018, WBC 20.9, hemoglobin 9.8, hematocrit is 30.4, platelets 120. Neutrophils 83, bands 5, lymphs 4, monos 3, eosinophils 4, metamyelocytes 1. PT 11.6, PTT 57. ABG: The pH is 7.45, pCO2 is 32, pO2 is 139, bicarb is 23.8, and saturation 99.3. Sodium 153, potassium 5.2, chloride 127, CO2 of 25, BUN 55, creatinine 1.1, glucose 189, calcium is 9, phosphorus is 1, and magnesium 2.3. Total bili 0.8, AST 268, ALT 905, alkaline phosphatase 124, total protein 4.9, albumin is 2.4. Accu-Cheks, 172, 170. ASSESSMENT AND PLAN: In summary, Mrs. Gonzalez is a 67-year-old elderly very cachectic, thin-built [place] female with a history of hypertension, coronary artery disease, status post stent, cerebrovascular accident, with right-sided weakness, chronic obstructive pulmonary disease, status post intubation, status post acute myocardial infarction with increased blood urea nitrogen and creatinine and high serum sodium. 1. Hypernatremia secondary to intravascular depletion. 2. Acute renal failure secondary to prerenal azotemia. 3. Acute myocardial infarction. 4. Acute respiratory failure with altered mental status. 5. Urinary tract infection secondary to vancomycin-resistant enterococcus. Continue intravenous fluids of D5W at 60 mL per hour and avoid mixing antibiotics with half-normal saline or normal saline if possible. Continue gentle intravenous hydration. Continue Zyvox as per Infectious Disease recommendations. 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 Rule out pancreatic cancer. Rule out colon cancer. Overall prognosis is very poor. Discussed with the patient's family at bedside. Thank you for allowing me to participate in your patient's care. Jose Angel Adams MD [facility] # [phone]
[2018-04-26 05:56] LABS: BASO # 0.1 K/uL (0.0-0.2); BASO % 0.8 % (0.0-2.0); EOS # 0.5 K/uL (0.0-0.7); EOS % 3.2 % (0.0-4.0); HEMOGLOBIN 8.8 g/dL (11.0-16.0); LYMPH # 0.8 K/uL (1.0-4.3); LYMPH % 4.5 % (20.0-40.0); MEAN CELL VOLUME 96.5 fL (81.0-99.0); MEAN CORPUSCULAR HEMOGLOBIN 31.3 pg (27.0-31.0); MEAN CORPUSCULAR HGB CONC 32.4 g/dL (33.0-37.0); MEAN PLATELET VOLUME 11.6 fL (7.2-11.7); MONO # 0.6 K/uL (0.0-0.8); MONO % 3.5 % (0.0-10.0); NEUT # 14.9 K/uL (1.8-7.0); NRBC % 2.5 % (0.0-2.0); PLATELET COUNT 89 K/uL (130-400); RBC 2.82 Mil/uL (3.80-5.20); RED CELL DISTRIBUTION WIDTH 17.6 % (11.5-14.5); WHITE BLOOD COUNT 16.9 K/uL (4.8-10.8)
[2018-04-26] MEDS: Linezolid 600 mg in D5W 300 ml 600 MG/300 ML BAG IVPB SCH ×2 (06:00→17:16)
[2018-04-26] MEDS: (Novolog) Insulin Aspart, Recombinant 100 u/ml 10 ml vial SC SCH ×5 (06:00→23:33)
[2018-04-26 06:15] LABS: ALB/GLOB RATIO 0.9 (1.0-2.1); ALBUMIN 2.2 g/dL (3.5-5.0); ALT/SGPT 784 U/L (9-52); AST/SGOT 227 U/L (14-36); BLOOD UREA NITROGEN 41 mg/dL (7-17); CALCIUM 8.1 mg/dl (8.6-10.4); GFR NON-AFRICAN AMERICAN > 60
[2018-04-26 08:31] LABS: BANDS 3 % (0-2); EOSINOPHIL 4 % (0-4); LYMPHOCYTE 7 % (20-40); METAMYELOCYTE 1 % (0-0); MONOCYTE 4 % (0-10); NEUTROPHIL 81 % (50-75); NUCLEATED RED BLOOD CELL 1 % (0-0); PLATELET ESTIMATE DECREASED (NORMAL); TOTAL CELLS COUNTED 100
[2018-04-26 08:32] LABS: ANISOCYTOSIS MODERATE; HYPOCHROMIC SLIGHT; LARGE PLATELETS PRESENT; POIKILOCYTOSIS SLIGHT; POLYCHROMIC SLIGHT; SCHISTOCYTES SLIGHT
--- NOTE | 2018-04-26 09:24 | CP.PCM.PN ---
Subjective - Date & Time of Evaluation Date of Evaluation: 04/26/18 Time of Evaluation: 10:15 - Subjective Subjective: chart review ICU notes noted labs-WBC improving Vitals noted febrile had GIB patient seen and daughter by bedside aware of patients condition family had meeting with hospice family is waiting for more family members coming from other state currently patient on CPAP trial intubated with no sedation, lethargic , with minimal movement of LLE GIB noted by staff - family aware Objective - Vital Signs/Intake and Output Vital Signs (last 24 hours): Temp Pulse Resp BP Pulse Ox 99.8 F H 93 H 19 113/74 100 04/26/18 08:00 04/26/18 09:00 04/26/18 09:00 04/26/18 08:32 04/26/18 09:00 Intake and Output: 04/26/18 04/26/18 06:59 18:59 Intake Total 1546.8 497.8 Output Total 800 Balance 746.8 497.8 - Medications Medications: Current Medications Acetaminophen (Tylenol 650mg/20.3ml Solution Ud) 650 mg PO Q4H PRN PRN Reason: Temperature Fever >100.4 F Last Admin: 04/25/18 22:00 Dose: 650 mg Aspirin (Aspirin Chewable) 81 mg PO DAILY [facility] Last Admin: 04/25/18 09:06 Dose: 81 mg Clopidogrel Bisulfate (Plavix) 75 mg PO DAILY [facility] Last Admin: 04/25/18 09:06 Dose: 75 mg Ferrous Sulfate (Feosol Liq) 300 mg PO TID [facility] Last Admin: 04/25/18 17:14 Dose: 300 mg Fluconazole (Diflucan Iv 200 Mg/100 Ml Ns) 100 mls @ 100 mls/hr IVPB Q24H [facility]; Protocol Last Admin: 04/25/18 18:15 Dose: 100 mls/hr Linezolid (Zyvox 600mg/300ml D5w) 600 mg in 300 mls @ 200 mls/hr IVPB Q12H [facility]; Protocol Last Admin: 04/26/18 06:00 Dose: 200 mls/hr Dextrose (Dextrose 5% In Water 1000 Ml) 1,000 mls @ 60 mls/hr IV .[id number] [facility] Last Admin: 04/26/18 03:45 Dose: 60 mls/hr Insulin Aspart (Novolog) 0 unit SC Q6H [facility]; Protocol Last Admin: 04/26/18 06:00 Dose: Not Given Levothyroxine Sodium (Synthroid) 100 mcg IVP DAILY [facility] Last Admin: 04/25/18 09:07 Dose: 100 mcg Multivitamins (Hexavitamin) 1 tab PO DAILY [facility] Last Admin: 04/25/18 09:06 Dose: 1 tab Pantoprazole Sodium (Protonix Inj) 40 mg IVP Q12H [facility] Last Admin: 04/26/18 02:45 Dose: 40 mg Potassium Phos/Sodium Phos (Neutra-Phos) 1 pkt PO TID [facility] Stop: 04/27/18 10:01 Last Admin: 04/25/18 17:14 Dose: 1 pkt Rosuvastatin Calcium (Crestor) 5 mg PO HS [facility] Last Admin: 04/24/18 22:00 Dose: 5 mg Sucralfate (Carafate Oral Susp) 1 gm PO TID [facility] Last Admin: 04/25/18 17:14 Dose: 1 gm Vitamin A (Vitamin A & D Oint Ud Foilpak) 0.5 ea TOP Q4 PRN PRN Reason: Dry mouth Last Admin: 04/23/18 15:56 Dose: 0.5 ea - Labs Labs: 04/26/18 05:48 04/26/18 05:48 PT 11.6 SECONDS (9.7-12.2) 04/25/18 06:25 INR 1.1 04/25/18 06:25 APTT 48 SECONDS (21-34) H D 04/26/18 05:48 - Constitutional Appears: Chronically Ill (intubated lethargic with minimal reaction to pain stimuli despite no sedation), Other - Head Exam Head Exam: ATRAUMATIC, NORMOCEPHALIC - Respiratory Exam Respiratory Exam: NORMAL BREATHING PATTERN (as connected to vent) - GI/Abdominal Exam GI & Abdominal Exam: absent: Distended - Extremities Exam Extremities Exam: absent: Full ROM (with swelling of both upper arms noted ) - Neurological Exam Neurological Exam: Altered - Skin Skin Exam: Normal Color Assessment and Plan - Assessment and Plan (Free Text) Assessment: Patient with multiple acute problems with poor prognosis 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
[2018-04-26] MEDS: Ferrous Sulfate 300 mg/5 mL Liq UD PO SCH ×3 (10:06→17:17)
[2018-04-26] MEDS: Potassium & Sodium Phosphate PO SCH ×3 (10:06→17:17)
[2018-04-26] MEDS: Acetaminophen 650mg/20.3ml solution UD PO PRN (10:06)
--- NOTE | 2018-04-26 10:06 | CP.CCUPN ---
CCU Subjective - Physician Review Events Since Last Encounter (Free Text): Patient remained stable over the vent. (+)black stool , Hb dropped 04/26/18 11:08 Subjective (Free Text): (+)black stool, intubated, non-communicative 04/26/18 11:09 CCU Objective - Vital Signs / Intake & Output Vital Signs (Last 4 hours): Vital Signs Temp Pulse Resp BP Pulse Ox 04/26/18 09:00 93 H 19 100 04/26/18 08:32 79 15 113/74 100 04/26/18 08:31 80 17 100 04/26/18 08:00 99.8 F H 87 17 100 04/26/18 07:32 94 H 22 138/98 H 100 04/26/18 07:00 85 17 100 04/26/18 06:32 98 H 19 131/84 100 Intake and Output (Last 8hrs): Intake & Output 04/25/18 04/26/18 04/26/18 22:59 06:59 14:59 Intake Total 1557.2 1071.2 497.8 Output Total 200 700 Balance 1357.2 371.2 497.8 Weight 83 lb 9.6 oz Intake: IV 140 Intake, IV Amount 977.2 601.2 277.8 Left Forearm 186 Left Hand 31.2 31.2 7.8 Left Wrist 760 570 270 Tube Feeding 380 470 80 Other 200 Output: Urine 200 700 Urine, Voided 200 700 Other: # Bowel Movements 0 1 1 - Physical Exam Head: Positive for: Atraumatic, Normocephalic Pupils: Positive for: PERRL Extroacular Muscles: Positive for: EOMI Conjunctiva: Positive for: Normal Mouth: Positive for: Moist Mucous Membranes Neck: Positive for: Normal Range of Motion Respiratory/Chest: Positive for: Good Air Exchange, Decreased Breath Sounds Cardiovascular: Positive for: Normal S1, S2 Abdomen: Positive for: Normal Bowel Sounds Upper Extremity: Positive for: Other (limited movement left upper extremity) Lower Extremity: Positive for: Edema Skin: Positive for: Warm, Normal Color Psychiatric: Positive for: Alert, Oriented x 3 - Medications Active Medications: Active Medications Generic Name Dose Route Start Last Admin Trade Name Freq PRN Reason Stop Dose Admin Acetaminophen 650 mg 04/23/18 11:35 04/25/18 22:00 Tylenol 650mg/20.3ml Solution Ud PO 650 mg Q4H PRN Administration Temperature Fever >100.4 F Aspirin 81 mg 04/23/18 10:00 04/25/18 09:06 Aspirin Chewable PO 81 mg DAILY [facility] Administration Clopidogrel Bisulfate 75 mg 04/23/18 10:00 04/25/18 09:06 Plavix PO 75 mg DAILY [facility] Administration Ferrous Sulfate 300 mg 04/19/18 19:00 04/25/18 17:14 Feosol Liq PO 300 mg TID [facility] Administration Fluconazole 100 mls @ 100 mls/hr 04/14/18 18:30 04/25/18 18:15 Diflucan Iv 200 Mg/100 Ml Ns IVPB 100 mls/hr Q24H [facility] Administration Protocol Linezolid 600 mg in 300 mls @ 200 mls/hr 04/24/18 18:00 04/26/18 06:00 Zyvox 600mg/300ml D5w IVPB 200 mls/hr Q12H [facility] Administration Protocol Dextrose 1,000 mls @ 60 mls/hr 04/24/18 19:15 04/26/18 03:45 Dextrose 5% In Water 1000 Ml IV 60 mls/hr .[id number] [facility] Administration Insulin Aspart 0 unit 04/12/18 18:00 04/26/18 06:00 Novolog SC Not Given Q6H [facility] Protocol Levothyroxine Sodium 100 mcg 04/22/18 10:00 04/25/18 09:07 Synthroid IVP 100 mcg DAILY [facility] Administration Multivitamins 1 tab 04/18/18 10:00 04/25/18 09:06 Hexavitamin PO 1 tab DAILY [facility] Administration Pantoprazole Sodium 40 mg 04/23/18 14:45 04/26/18 02:45 Protonix Inj IVP 40 mg Q12H [facility] Administration Potassium Phos/Sodium Phos 1 pkt 04/25/18 10:00 04/25/18 17:14 Neutra-Phos PO 04/27/18 10:01 1 pkt TID [facility] Administration Rosuvastatin Calcium 5 mg 04/10/18 22:00 04/24/18 22:00 Crestor PO 5 mg HS [facility] Administration Sucralfate 1 gm 04/24/18 10:00 04/25/18 17:14 Carafate Oral Susp PO 1 gm TID [facility] Administration Vitamin A 0.5 ea 04/10/18 14:21 04/23/18 15:56 Vitamin A & D Oint Ud Foilpak TOP 0.5 ea Q4 PRN Administration Dry mouth - Patient Studies Lab Studies: Microbiology Studies 04/22/18 14:30 Blood Culture - Preliminary Blood NO GROWTH AFTER 3 DAYS 04/22/18 14:00 Blood Culture - Preliminary Blood NO GROWTH AFTER 3 DAYS Lab Studies 04/26/18 04/26/18 04/26/18 Range/Units 05:48 05:48 05:48 WBC 16.9 H (4.8-10.8) K/uL RBC 2.82 L (3.80-5.20) Mil/uL Hgb 8.8 L (11.0-16.0) g/dL Hct 27.2 L (34.0-47.0) % MCV 96.5 (81.0-99.0) fL MCH 31.3 H (27.0-31.0) pg MCHC 32.4 L (33.0-37.0) g/dL RDW 17.6 H (11.5-14.5) % Plt Count 89 L D (130-400) K/uL MPV 11.6 (7.2-11.7) fL Neut % (Auto) 88.0 H (50.0-75.0) % Lymph % (Auto) 4.5 L (20.0-40.0) % [place] % (Auto) 3.5 (0.0-10.0) % Eos % (Auto) 3.2 (0.0-4.0) % Baso % (Auto) 0.8 (0.0-2.0) % Neut # (Auto) 14.9 H (1.8-7.0) K/uL Lymph # (Auto) 0.8 L (1.0-4.3) K/uL [place] # (Auto) 0.6 (0.0-0.8) K/uL Eos # (Auto) 0.5 (0.0-0.7) K/uL Baso # (Auto) 0.1 (0.0-0.2) K/uL Neutrophils % (Manual) 81 H (50-75) % Band Neutrophils % 3 H (0-2) % Lymphocytes % (Manual) 7 L (20-40) % Monocytes % (Manual) 4 (0-10) % Eosinophils % (Manual) 4 (0-4) % Metamyelocytes % 1 H (0-0) % Nucleated RBC % 1 H (0-0) % Platelet Estimate Decreased L (NORMAL) Large Platelets Present Polychromasia Slight Hypochromasia (manual) Slight Poikilocytosis (manual Slight Anisocytosis (manual) Moderate Schistocytes Slight APTT 48 H D (21-34) SECONDS Sodium 146 (132-148) mmol/L Potassium 4.1 (3.6-5.2) mmol/L Chloride 119 H (98-107) mmol/L Carbon Dioxide 25 (22-30) mmol/L Anion Gap 7 L (10-20) BUN 41 H (7-17) mg/dL Creatinine 0.8 (0.7-1.2) mg/dL Est GFR ( Amer) > 60 Est GFR (Non-Af Amer) > 60 POC Glucose (mg/dL) (65-110) mg/dL Random Glucose 149 H D (65-105) mg/dL Calcium 8.1 L (8.6-10.4) mg/dl Phosphorus 2.5 (2.5-4.5) mg/dL Magnesium 1.9 (1.6-2.3) mg/dL Total Bilirubin 0.6 (0.2-1.3) mg/dL AST 227 H (14-36) U/L ALT 784 H (9-52) U/L Alkaline Phosphatase 128 H (38-126) U/L Total Protein 4.7 L (6.3-8.3) g/dL Albumin 2.2 L (3.5-5.0) g/dL Globulin 2.5 (2.2-3.9) gm/dL Albumin/Globulin Ratio 0.9 L (1.0-2.1) 04/25/18 04/25/18 04/25/18 Range/Units 23:43 17:50 12:20 WBC (4.8-10.8) K/uL RBC (3.80-5.20) Mil/uL Hgb (11.0-16.0) g/dL Hct (34.0-47.0) % MCV (81.0-99.0) fL MCH (27.0-31.0) pg MCHC (33.0-37.0) g/dL RDW (11.5-14.5) % Plt Count (130-400) K/uL MPV (7.2-11.7) fL Neut % (Auto) (50.0-75.0) % Lymph % (Auto) (20.0-40.0) % [place] % (Auto) (0.0-10.0) % Eos % (Auto) (0.0-4.0) % Baso % (Auto) (0.0-2.0) % Neut # (Auto) (1.8-7.0) K/uL Lymph # (Auto) (1.0-4.3) K/uL [place] # (Auto) (0.0-0.8) K/uL Eos # (Auto) (0.0-0.7) K/uL Baso # (Auto) (0.0-0.2) K/uL Neutrophils % (Manual) (50-75) % Band Neutrophils % (0-2) % Lymphocytes % (Manual) (20-40) % Monocytes % (Manual) (0-10) % Eosinophils % (Manual) (0-4) % Metamyelocytes % (0-0) % Nucleated RBC % (0-0) % Platelet Estimate (NORMAL) Large Platelets Polychromasia Hypochromasia (manual) Poikilocytosis (manual Anisocytosis (manual) Schistocytes APTT (21-34) SECONDS Sodium (132-148) mmol/L Potassium (3.6-5.2) mmol/L Chloride (98-107) mmol/L Carbon Dioxide (22-30) mmol/L Anion Gap (10-20) BUN (7-17) mg/dL Creatinine (0.7-1.2) mg/dL Est GFR ( Amer) Est GFR (Non-Af Amer) POC Glucose (mg/dL) 174 H 205 H 170 H (65-110) mg/dL Random Glucose (65-105) mg/dL Calcium (8.6-10.4) mg/dl Phosphorus (2.5-4.5) mg/dL Magnesium (1.6-2.3) mg/dL Total Bilirubin (0.2-1.3) mg/dL AST (14-36) U/L ALT (9-52) U/L Alkaline Phosphatase (38-126) U/L Total Protein (6.3-8.3) g/dL Albumin (3.5-5.0) g/dL Globulin (2.2-3.9) gm/dL Albumin/Globulin Ratio (1.0-2.1) Laboratory Results - last 24 hr 04/25/18 04/25/18 04/25/18 12:20 17:50 23:43 WBC RBC Hgb Hct MCV MCH MCHC RDW Plt Count MPV Neut % (Auto) Lymph % (Auto) [place] % (Auto) Eos % (Auto) Baso % (Auto) Neut # (Auto) Lymph # (Auto) [place] # (Auto) Eos # (Auto) Baso # (Auto) Neutrophils % (Manual) Band Neutrophils % Lymphocytes % (Manual) Monocytes % (Manual) Eosinophils % (Manual) Metamyelocytes % Nucleated RBC % Platelet Estimate Large Platelets Polychromasia Hypochromasia (manual) Poikilocytosis (manual Anisocytosis (manual) Schistocytes APTT Sodium Potassium Chloride Carbon Dioxide Anion Gap BUN Creatinine Est GFR ( Amer) Est GFR (Non-Af Amer) POC Glucose (mg/dL) 170 H 205 H 174 H Random Glucose Calcium Phosphorus Magnesium Total Bilirubin AST ALT Alkaline Phosphatase Total Protein Albumin Globulin Albumin/Globulin Ratio 04/26/18 04/26/18 04/26/18 05:48 05:48 05:48 WBC 16.9 H RBC 2.82 L Hgb 8.8 L Hct 27.2 L MCV 96.5 MCH 31.3 H MCHC 32.4 L RDW 17.6 H Plt Count 89 L D MPV 11.6 Neut % (Auto) 88.0 H Lymph % (Auto) 4.5 L [place] % (Auto) 3.5 Eos % (Auto) 3.2 Baso % (Auto) 0.8 Neut # (Auto) 14.9 H Lymph # (Auto) 0.8 L [place] # (Auto) 0.6 Eos # (Auto) 0.5 Baso # (Auto) 0.1 Neutrophils % (Manual) 81 H Band Neutrophils % 3 H Lymphocytes % (Manual) 7 L Monocytes % (Manual) 4 Eosinophils % (Manual) 4 Metamyelocytes % 1 H Nucleated RBC % 1 H Platelet Estimate Decreased L Large Platelets Present Polychromasia Slight Hypochromasia (manual) Slight Poikilocytosis (manual Slight Anisocytosis (manual) Moderate Schistocytes Slight APTT 48 H D Sodium 146 Potassium 4.1 Chloride 119 H Carbon Dioxide 25 Anion Gap 7 L BUN 41 H Creatinine 0.8 Est GFR ( Amer) > 60 Est GFR (Non-Af Amer) > 60 POC Glucose (mg/dL) Random Glucose 149 H D Calcium 8.1 L Phosphorus 2.5 Magnesium 1.9 Total Bilirubin 0.6 AST 227 H ALT 784 H Alkaline Phosphatase 128 H Total Protein 4.7 L Albumin 2.2 L Globulin 2.5 Albumin/Globulin Ratio 0.9 L Radiology Impressions: Radiology Impressions Chest X-Ray 04/25/18 07:06 IMPRESSION: No active disease. Fingerstick Blood Sugar Results: 167 Review of Systems - Review of Systems Systems not reviewed;Unavailable: Intubated Assessment/Plan - Assessment and Plan (Free Text) Assessment: 67 year old female with PMhx of HTN, anxiety, 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 Pt transferred to ICU for respiratory distress/ intubated 04/22, currently weaning. Pt on heparin drip 2/2 elevated troponins likely of cardiac origin. on contact due to VRDE in urine. Possible trach/peg? DEVIN resolved, acute liver failure resolving. Possible DNI pending family meeting scheduled for 04/27. Currently DNR. 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, continue ventilation and feeding -CAD: continue aspirin 81 mg, hold Plavix 75 daily (as per cardiology), hold Heparin ggt (as completed 48 hurs of IV heparin) due to 2nd black stool - Cardiology follow up -hypoxic respiratory failure:continue ventilation and CPAP trials daily, yesterday tolerated 8 hours of CPAP trials, changed to PRVC over night -h/o hypothyroidism, continue Levothyroxine 100 mg IVP - Heme:continue to monitor serial cbc, transfuse as needed - WBC elevated 2/2 to UTI -VDRE & yeast:continue abx as per ID -tube feeds on hold 2nd Gi bleed, (+)Black stool, -Nephrology - BUN/Cr 55/1.1, DEVIN resolving - replenish electrolytes PPx: - DVT: SCDS - GI: Protonix 40 mg IV Q12 + carafate Goals of care: I have discussed the goals of care with . Currently family favoring comfort care likely terminal extubation on Friday when patient's other brothers arrive from [place]. -PRimum non nocere -- will hold IV heparin, prognosis poor continue to monitor - Date & Time Date: 04/26/18 Time: 11:23
[2018-04-26] MEDS: Sucralfate 1 gm/10 ml Oral Susp UD PO SCH ×3 (10:07→17:17)
[2018-04-26] MEDS: Multiple Vitamins Tab PO SCH (10:07)
[2018-04-26] MEDS: Levothyroxine 100 mcg (0.1 mg) Inj IVP SCH (10:07)
--- NOTE | 2018-04-26 10:30 | CP.PCM.PN ---
Subjective - Date & Time of Evaluation Date of Evaluation: 04/26/18 Time of Evaluation: 10:26 - Subjective Subjective: Still intubated and sedated. Family bed side. Objective - Vital Signs/Intake and Output Vital Signs (last 24 hours): Temp Pulse Resp BP Pulse Ox 99.8 F H 93 H 19 113/74 100 04/26/18 10:06 04/26/18 09:00 04/26/18 09:00 04/26/18 08:32 04/26/18 09:00 Intake and Output: 04/26/18 04/26/18 06:59 18:59 Intake Total 1546.8 497.8 Output Total 800 Balance 746.8 497.8 - Medications Medications: Current Medications Acetaminophen (Tylenol 650mg/20.3ml Solution Ud) 650 mg PO Q4H PRN PRN Reason: Temperature Fever >100.4 F Last Admin: 04/26/18 10:06 Dose: 650 mg Aspirin (Aspirin Chewable) 81 mg PO DAILY [facility] Last Admin: 04/25/18 09:06 Dose: 81 mg Clopidogrel Bisulfate (Plavix) 75 mg PO DAILY [facility] Last Admin: 04/25/18 09:06 Dose: 75 mg Ferrous Sulfate (Feosol Liq) 300 mg PO TID [facility] Last Admin: 04/26/18 10:06 Dose: 300 mg Fluconazole (Diflucan Iv 200 Mg/100 Ml Ns) 100 mls @ 100 mls/hr IVPB Q24H [facility]; Protocol Last Admin: 04/25/18 18:15 Dose: 100 mls/hr Linezolid (Zyvox 600mg/300ml D5w) 600 mg in 300 mls @ 200 mls/hr IVPB Q12H [facility]; Protocol Last Admin: 04/26/18 06:00 Dose: 200 mls/hr Dextrose (Dextrose 5% In Water 1000 Ml) 1,000 mls @ 60 mls/hr IV .[id number] [facility] Last Admin: 04/26/18 03:45 Dose: 60 mls/hr Insulin Aspart (Novolog) 0 unit SC Q6H [facility]; Protocol Last Admin: 04/26/18 06:00 Dose: Not Given Levothyroxine Sodium (Synthroid) 100 mcg IVP DAILY [facility] Last Admin: 04/26/18 10:07 Dose: 100 mcg Multivitamins (Hexavitamin) 1 tab PO DAILY [facility] Last Admin: 04/26/18 10:07 Dose: 1 tab Pantoprazole Sodium (Protonix Inj) 40 mg IVP Q12H [facility] Last Admin: 04/26/18 02:45 Dose: 40 mg Potassium Phos/Sodium Phos (Neutra-Phos) 1 pkt PO TID [facility] Stop: 04/27/18 10:01 Last Admin: 04/26/18 10:06 Dose: 1 pkt Rosuvastatin Calcium (Crestor) 5 mg PO HS [facility] Last Admin: 04/24/18 22:00 Dose: 5 mg Sucralfate (Carafate Oral Susp) 1 gm PO TID [facility] Last Admin: 04/26/18 10:07 Dose: 1 gm Vitamin A (Vitamin A & D Oint Ud Foilpak) 0.5 ea TOP Q4 PRN PRN Reason: Dry mouth Last Admin: 04/23/18 15:56 Dose: 0.5 ea - Labs Labs: 04/26/18 05:48 04/26/18 05:48 PT 11.6 SECONDS (9.7-12.2) 04/25/18 06:25 INR 1.1 04/25/18 06:25 APTT 48 SECONDS (21-34) H D 04/26/18 05:48 - Respiratory Exam Additional comments: Intubated and sedated. - Cardiovascular Exam Cardiovascular Exam: REGULAR RHYTHM - Back Exam Back Exam: NORMAL INSPECTION Assessment and Plan (1) NSTEMI (non-ST elevated myocardial infarction) Assessment & Plan: Patient with multiple medical issues and NSTEMI. Discussed with family about prognosis. Given the current condition, medical management for now. Status: Acute
[2018-04-26 14:26] LABS: BASO # 0.2 K/uL (0.0-0.2); BASO % 1.3 % (0.0-2.0); EOS # 0.5 K/uL (0.0-0.7); EOS % 3.2 % (0.0-4.0); HEMOGLOBIN 8.2 g/dL (11.0-16.0); LYMPH # 0.8 K/uL (1.0-4.3); LYMPH % 4.7 % (20.0-40.0); MEAN CORPUSCULAR HEMOGLOBIN 31.3 pg (27.0-31.0); MEAN CORPUSCULAR HGB CONC 32.3 g/dL (33.0-37.0); MEAN PLATELET VOLUME 12.2 fL (7.2-11.7); MONO # 0.5 K/uL (0.0-0.8); MONO % 3.3 % (0.0-10.0); NEUT # 14.2 K/uL (1.8-7.0); NEUT % 87.5 % (50.0-75.0); NRBC % 2.3 % (0.0-2.0); PLATELET COUNT 77 K/uL (130-400); RBC 2.61 Mil/uL (3.80-5.20); RED CELL DISTRIBUTION WIDTH 17.1 % (11.5-14.5); WHITE BLOOD COUNT 16.3 K/uL (4.8-10.8)
[2018-04-26 14:55] LABS: BANDS 14 % (0-2); EOSINOPHIL 5 % (0-4); LYMPHOCYTE 8 % (20-40); MONOCYTE 4 % (0-10); NEUTROPHIL 69 % (50-75); NUCLEATED RED BLOOD CELL 1 % (0-0); PLATELET ESTIMATE DECREASED (NORMAL); TOTAL CELLS COUNTED 100
[2018-04-26 14:56] LABS: ANISOCYTOSIS MODERATE; LARGE PLATELETS PRESENT
[2018-04-26 14:57] LABS: POLYCHROMIC SLIGHT
--- NOTE | 2018-04-26 15:29 | CP.PCM.PN ---
Subjective - Date & Time of Evaluation Date of Evaluation: 04/26/18 Time of Evaluation: 15:28 - Subjective Subjective: pt is seen and examined, follow up consult is dictated #[id number] Objective - Vital Signs/Intake and Output Vital Signs (last 24 hours): Temp Pulse Resp BP Pulse Ox 98.2 F 72 19 90/59 L 100 04/26/18 12:00 04/26/18 15:00 04/26/18 15:00 04/26/18 14:32 04/26/18 15:00 Intake and Output: 04/26/18 04/26/18 06:59 18:59 Intake Total 1546.8 957.8 Output Total 800 200 Balance 746.8 757.8 - Medications Medications: Current Medications Acetaminophen (Tylenol 650mg/20.3ml Solution Ud) 650 mg PO Q4H PRN PRN Reason: Temperature Fever >100.4 F Last Admin: 04/26/18 10:06 Dose: 650 mg Aspirin (Aspirin Chewable) 81 mg PO DAILY [facility] Last Admin: 04/25/18 09:06 Dose: 81 mg Clopidogrel Bisulfate (Plavix) 75 mg PO DAILY [facility] Last Admin: 04/25/18 09:06 Dose: 75 mg Ferrous Sulfate (Feosol Liq) 300 mg PO TID [facility] Last Admin: 04/26/18 13:55 Dose: 300 mg Fluconazole (Diflucan Iv 200 Mg/100 Ml Ns) 100 mls @ 100 mls/hr IVPB Q24H [facility]; Protocol Last Admin: 04/25/18 18:15 Dose: 100 mls/hr Linezolid (Zyvox 600mg/300ml D5w) 600 mg in 300 mls @ 200 mls/hr IVPB Q12H [facility]; Protocol Last Admin: 04/26/18 06:00 Dose: 200 mls/hr Dextrose (Dextrose 5% In Water 1000 Ml) 1,000 mls @ 60 mls/hr IV .[id number] [facility] Last Admin: 04/26/18 03:45 Dose: 60 mls/hr Piperacillin Sod/Tazobactam (Sod 3.375 gm/ Sodium Chloride) 100 mls @ 200 mls/hr IVPB Q8H [facility]; Protocol Insulin Aspart (Novolog) 0 unit SC Q6H [facility]; Protocol Last Admin: 04/26/18 12:55 Dose: Not Given Levothyroxine Sodium (Synthroid) 100 mcg IVP DAILY [facility] Last Admin: 04/26/18 10:07 Dose: 100 mcg Multivitamins (Hexavitamin) 1 tab PO DAILY [facility] Last Admin: 04/26/18 10:07 Dose: 1 tab Pantoprazole Sodium (Protonix Inj) 40 mg IVP Q12H [facility] Last Admin: 04/26/18 13:56 Dose: 40 mg Potassium Phos/Sodium Phos (Neutra-Phos) 1 pkt PO TID [facility] Stop: 04/27/18 10:01 Last Admin: 04/26/18 13:56 Dose: 1 pkt Rosuvastatin Calcium (Crestor) 5 mg PO HS [facility] Last Admin: 04/24/18 22:00 Dose: 5 mg Sucralfate (Carafate Oral Susp) 1 gm PO TID [facility] Last Admin: 04/26/18 13:56 Dose: 1 gm Vitamin A (Vitamin A & D Oint Ud Foilpak) 0.5 ea TOP Q4 PRN PRN Reason: Dry mouth Last Admin: 04/23/18 15:56 Dose: 0.5 ea - Labs Labs: 04/26/18 14:12 04/26/18 05:48 PT 11.6 SECONDS (9.7-12.2) 04/25/18 06:25 INR 1.1 04/25/18 06:25 APTT 48 SECONDS (21-34) H D 04/26/18 05:48
[2018-04-26] MEDS: Piperacillin/Tazobact 3.375 GM in Sodium Chloride 100 ML IVPB SCH ×2 (16:01→23:32)
--- NOTE | 2018-04-26 17:52 | CP.PCM.PN ---
Subjective - Date & Time of Evaluation Date of Evaluation: 04/26/18 Time of Evaluation: 08:00 - Subjective Subjective: intubated events noted IV rx in progress Objective - Vital Signs/Intake and Output Vital Signs (last 24 hours): Temp Pulse Resp BP Pulse Ox 97.4 F L 78 19 124/79 98 04/26/18 16:00 04/26/18 17:00 04/26/18 17:00 04/26/18 16:32 04/26/18 17:00 Intake and Output: 04/26/18 04/26/18 06:59 18:59 Intake Total 1546.8 1117.8 Output Total 800 200 Balance 746.8 917.8 - Medications Medications: Current Medications Acetaminophen (Tylenol 650mg/20.3ml Solution Ud) 650 mg PO Q4H PRN PRN Reason: Temperature Fever >100.4 F Last Admin: 04/26/18 10:06 Dose: 650 mg Aspirin (Aspirin Chewable) 81 mg PO DAILY [facility] Last Admin: 04/25/18 09:06 Dose: 81 mg Clopidogrel Bisulfate (Plavix) 75 mg PO DAILY [facility] Last Admin: 04/25/18 09:06 Dose: 75 mg Ferrous Sulfate (Feosol Liq) 300 mg PO TID [facility] Last Admin: 04/26/18 17:17 Dose: 300 mg Fluconazole (Diflucan Iv 200 Mg/100 Ml Ns) 100 mls @ 100 mls/hr IVPB Q24H [facility]; Protocol Last Admin: 04/25/18 18:15 Dose: 100 mls/hr Linezolid (Zyvox 600mg/300ml D5w) 600 mg in 300 mls @ 200 mls/hr IVPB Q12H [facility]; Protocol Last Admin: 04/26/18 17:16 Dose: 200 mls/hr Dextrose (Dextrose 5% In Water 1000 Ml) 1,000 mls @ 60 mls/hr IV .[id number] [facility] Last Admin: 04/26/18 03:45 Dose: 60 mls/hr Piperacillin Sod/Tazobactam (Sod 3.375 gm/ Sodium Chloride) 100 mls @ 200 mls/hr IVPB Q8H RODRIGO; Protocol Last Admin: 04/26/18 16:01 Dose: 200 mls/hr Insulin Aspart (Novolog) 0 unit SC Q6H RODRIGO; Protocol Last Admin: 04/26/18 12:55 Dose: Not Given Levothyroxine Sodium (Synthroid) 100 mcg IVP DAILY RODRIGO Last Admin: 04/26/18 10:07 Dose: 100 mcg Multivitamins (Hexavitamin) 1 tab PO DAILY RODRIGO Last Admin: 04/26/18 10:07 Dose: 1 tab Pantoprazole Sodium (Protonix Inj) 40 mg IVP Q12H RODRIGO Last Admin: 04/26/18 13:56 Dose: 40 mg Potassium Phos/Sodium Phos (Neutra-Phos) 1 pkt PO TID RODRIGO Stop: 04/27/18 10:01 Last Admin: 04/26/18 17:17 Dose: 1 pkt Rosuvastatin Calcium (Crestor) 5 mg PO HS [facility] Last Admin: 04/24/18 22:00 Dose: 5 mg Sucralfate (Carafate Oral Susp) 1 gm PO TID RODRIGO Last Admin: 04/26/18 17:17 Dose: 1 gm Vitamin A (Vitamin A & D Oint Ud Foilpak) 0.5 ea TOP Q4 PRN PRN Reason: Dry mouth Last Admin: 04/23/18 15:56 Dose: 0.5 ea - Labs Labs: 04/26/18 14:12 04/26/18 05:48 PT 11.6 SECONDS (9.7-12.2) 04/25/18 06:25 INR 1.1 04/25/18 06:25 APTT 48 SECONDS (21-34) H D 04/26/18 05:48 - Constitutional Appears: Confused, Cachectic, Chronically Ill - Head Exam Head Exam: NORMOCEPHALIC - Eye Exam Eye Exam: absent: Scleral icterus - ENT Exam ENT Exam: Mucous Membranes Dry - Neck Exam Neck Exam: absent: Lymphadenopathy - Respiratory Exam Respiratory Exam: Decreased Breath Sounds - Cardiovascular Exam Cardiovascular Exam: REGULAR RHYTHM - GI/Abdominal Exam GI & Abdominal Exam: Distended - Rectal Exam Rectal Exam: Deferred - Exam Exam: NORMAL INSPECTION - Extremities Exam Extremities Exam: absent: Pedal Edema - Back Exam Back Exam: absent: CVA tenderness (L), CVA tenderness (R) - Neurological Exam Neurological Exam: Altered Assessment and Plan (1) Acute respiratory failure with hypoxia and hypercapnia Status: Acute (2) Metastatic cancer Status: Acute (3) COPD exacerbation Status: Acute (4) Cachexia Status: Acute (5) CVA (cerebral vascular accident) Status: Acute - Assessment and Plan (Free Text) Assessment: poor prognosis eunsyn added
[2018-04-26] MEDS ORDERED: Lactated Ringer's 1,000 ML IV ONE (18:18)
[2018-04-26] MEDS: Fluconazole IV 200mg/100 ml NS 100 ML IVPB SCH (18:22)
--- NOTE | 2018-04-27 02:50 | PN ---
DATE: 04/26/2018 FOLLOWUP RENAL CONSULTATION LOCATION: The patient is located in ICU, bed 10. REQUESTED BY: Libia Brady MD REASON FOR FOLLOWUP: Hypernatremia and acute renal failure. HISTORY OF PRESENT ILLNESS: Mrs. Gonzalez is a 67-year-old elderly very thin-built, cachectic, [place] female with a history of hypertension, coronary artery disease, status post stent placement, CVA with right-sided weakness, COPD who was admitted multiple times in the hospital in the last 1 month with suspected radiological evidence of metastatic bone disease with elevated CA19-9 and CEA who was recently admitted with altered mental status and respiratory failure, requiring intubation. Subsequently, the patient was extubated and transferred to medical floor with hypernatremia, acute renal failure, treated with IV fluids. The patient developed acute HI on the floor and had HEAD CHOPPER. Subsequently, the patient was intubated and transferred to ICU. The patient is on ventilator, not in distress. The patient is on AC 14, 450, PEEP of 5, not responding to verbal stimuli, tried to move slightly both left upper extremity and left lower extremity. PHYSICAL EXAMINATION: VITAL SIGNS: As follows: Blood pressure 158/96, pulse 83, respiration 18, temperature 97.7, saturation 100%. Height 5 feet 3 inches, weight is 83 pounds. GENERAL: Mrs. Gonzalez is a 67-year-old elderly thin-built, cachectic female. HEENT: Pupils normal and reactive to light and accommodation. Conjunctivae pink. Sclerae anicteric. The patient is on ventilator. No thyroid enlargement. LUNGS: Symmetric on both sides. Bilateral breath sounds present. No crackles. CVS: Ovid at the fifth intercostal space, midclavicular line. S1, S2 audible. No murmur or gallop. ABDOMEN: Normal in appearance. Soft, tympanitic. No guarding. No rigidity. No hepatosplenomegaly. CENTRAL NERVOUS SYSTEM: On ventilator, not responding to verbal stimuli. Try to move the left upper extremity and lower extremity with a painful stimuli. EXTREMITIES: No cyanosis, no clubbing, no edema. CURRENT MEDICATIONS: Include as follows: Aspirin 81 mg, Carafate 1 g p.o. t.i.d., IV fluids D5W at 60 mL/hour, fluconazole 200 mg daily, ferrous sulfate 300 mg p.o. t.i.d., multivitamin 1 tablet daily, Neutra-Phos 1 packet p.o. t.i.d., NovoLog for sliding scale, Zosyn 3.375 g every 8 hours, Plavix on hold, Protonix 40 mg IV every 12 hours, levothyroxine 100 mcg daily, vitamin E and D ointment, Zyvox 600 mg every 12 hours. LABORATORY DATA: Include as follows. WBC 16.3, hemoglobin 8.8, hematocrit 25.3, platelets is 77, neutrophils 69, bands 14, lymph 8, monos 4, eosinophils 5, nucleated RBC 1. Sodium 146, potassium 4.1, chloride 119, CO2 of 25, BUN 41, creatinine 0.8, glucose 149, calcium 8.1, phosphorus 2.5, magnesium 1.9. Total bili 0.6. AST 227, ALT 784, alkaline phosphatase 128, total protein 4.7, albumin is 2.2. Accu-Cheks 149, 175, and 156. Urine culture is positive for VRE as of 04/22/2018. IMPRESSION: In summary, Mrs. Sigala is a [id number], very cachectic, thin-built [place] female, status post syncopal episode, status post non-ST elevation myocardial infarction, respiratory failure, on ventilator with increased BUN and creatinine and hypernatremia. 1. Hypernatremia, secondary to vigorous diuresis. Serum sodium is improving with gentle IV hydration. 2. Prerenal azotemia. Serum creatinine is also improving, almost back to her baseline. Picture consistent with prerenal. 3. Urinary tract infection. Continue Zyvox and Zosyn. Consider stool for C. diff colitis. 4. Non-ST elevation myocardial infarction. The patient is off IV heparin as per ICU team. Overall prognosis is poor. 5. Radiological evidence of metastatic bone disease of unknown primary with elevated CA 19-9 and CEA. Cannot rule out pancreatic cancer or colon cancer. Overall prognosis is very poor. Jose Angel Adams MD
[2018-04-27] MEDS: Linezolid 600 mg in D5W 300 ml 600 MG/300 ML BAG IVPB SCH ×2 (05:39→17:00)
[2018-04-27] MEDS: (Novolog) Insulin Aspart, Recombinant 100 u/ml 10 ml vial SC SCH ×4 (05:40→23:58)
[2018-04-27 06:08] LABS: ALB/GLOB RATIO 0.8 (1.0-2.1); ALT/SGPT 649 U/L (9-52); AST/SGOT 221 U/L (14-36); BLOOD UREA NITROGEN 29 mg/dL (7-17); GFR NON-AFRICAN AMERICAN > 60
[2018-04-27 06:15] LABS: BASO # 0.1 K/uL (0.0-0.2); BASO % 0.5 % (0.0-2.0); EOS # 0.3 K/uL (0.0-0.7); EOS % 1.9 % (0.0-4.0); HEMOGLOBIN 8.4 g/dL (11.0-16.0); LYMPH # 0.6 K/uL (1.0-4.3); LYMPH % 3.6 % (20.0-40.0); MEAN CELL VOLUME 99.6 fL (81.0-99.0); MEAN CORPUSCULAR HEMOGLOBIN 31.3 pg (27.0-31.0); MEAN CORPUSCULAR HGB CONC 31.4 g/dL (33.0-37.0); MEAN PLATELET VOLUME 10.7 fL (7.2-11.7); MONO # 0.5 K/uL (0.0-0.8); MONO % 3.2 % (0.0-10.0); NEUT # 14.3 K/uL (1.8-7.0); NEUT % 90.8 % (50.0-75.0); NRBC % 1.3 % (0.0-2.0); PLATELET COUNT 42 K/uL (130-400); RBC 2.67 Mil/uL (3.80-5.20); RED CELL DISTRIBUTION WIDTH 17.5 % (11.5-14.5); WHITE BLOOD COUNT 15.8 K/uL (4.8-10.8)
--- NOTE | 2018-04-27 06:46 | PN ---
DATE: 04/26/2018 ENDOCRINOLOGY FOLLOWUP NOTE SUBJECTIVE: acute respiratory failure and unresponsive thyroid at this time, levothyroxine therapy is given. Continue with the present medical management with supportive and care. We will also continue with levothyroxine given at 100 mcg once daily given. We will obtain serial chemistries and supplement accordingly as needed. We will follow. Akiko Erazo MD
[2018-04-27 06:51] LABS: ARTERIAL BLOOD GAS HCO3 23.8 mmol/L (21-28); ARTERIAL BLOOD GAS HEMOGLOBIN 8.2 g/dL (11.7-17.4); ARTERIAL BLOOD GAS O2 SAT 98.9 % (95-98); ARTERIAL BLOOD GAS PCO2 29 mm/Hg (35-45); ARTERIAL BLOOD GAS PH 7.48 (7.35-7.45); ARTERIAL BLOOD GAS PO2 98 mm/Hg (80-100); ARTERIAL BLOOD GAS TCO2 22.5 mmol/L (22-28)
[2018-04-27] MEDS: Piperacillin/Tazobact 3.375 GM in Sodium Chloride 100 ML IVPB SCH ×3 (08:21→23:57)
--- NOTE | 2018-04-27 08:29 | CP.PCM.PN ---
Subjective - Date & Time of Evaluation Date of Evaluation: 04/27/18 Time of Evaluation: 07:00 - Subjective Subjective: Endocrine Service Progress Note for Dr. Castro Rogers DO, IM PGY-3 Patient seen and examined at bedside in the ICU. Remains intubated, unresponsive despite off sedation. Family at bedside. On contact precautions due to VRDE in urine. As per ICU staff, family considering terminal extubation tomorrow, focusing on comfort care at this time. Objective - Vital Signs/Intake and Output Vital Signs (last 24 hours): Temp Pulse Resp BP Pulse Ox 98.9 F 79 16 129/80 100 04/27/18 08:00 04/27/18 08:00 04/27/18 08:00 04/27/18 07:32 04/27/18 08:00 Intake and Output: 04/27/18 04/27/18 06:59 18:59 Intake Total 2180 80 Output Total 600 Balance 1580 80 - Medications Medications: Current Medications Acetaminophen (Tylenol 650mg/20.3ml Solution Ud) 650 mg PO Q4H PRN PRN Reason: Temperature Fever >100.4 F Last Admin: 04/26/18 10:06 Dose: 650 mg Aspirin (Aspirin Chewable) 81 mg PO DAILY [facility] Last Admin: 04/25/18 09:06 Dose: 81 mg Clopidogrel Bisulfate (Plavix) 75 mg PO DAILY [facility] Last Admin: 04/25/18 09:06 Dose: 75 mg Ferrous Sulfate (Feosol Liq) 300 mg PO TID [facility] Last Admin: 04/26/18 17:17 Dose: 300 mg Fluconazole (Diflucan Iv 200 Mg/100 Ml Ns) 100 mls @ 100 mls/hr IVPB Q24H [facility]; Protocol Last Admin: 04/26/18 18:22 Dose: 100 mls/hr Linezolid (Zyvox 600mg/300ml D5w) 600 mg in 300 mls @ 200 mls/hr IVPB Q12H [facility]; Protocol Last Admin: 04/27/18 05:39 Dose: 200 mls/hr Dextrose (Dextrose 5% In Water 1000 Ml) 1,000 mls @ 60 mls/hr IV .[id number] [facility] Last Admin: 04/26/18 23:33 Dose: 60 mls/hr Piperacillin Sod/Tazobactam (Sod 3.375 gm/ Sodium Chloride) 100 mls @ 200 mls/hr IVPB Q8H [facility]; Protocol Last Admin: 04/27/18 08:21 Dose: 200 mls/hr Insulin Aspart (Novolog) 0 unit SC Q6H [facility]; Protocol Last Admin: 04/27/18 05:40 Dose: Not Given Levothyroxine Sodium (Synthroid) 100 mcg IVP DAILY [facility] Last Admin: 04/26/18 10:07 Dose: 100 mcg Multivitamins (Hexavitamin) 1 tab PO DAILY [facility] Last Admin: 04/26/18 10:07 Dose: 1 tab Pantoprazole Sodium (Protonix Inj) 40 mg IVP Q12H [facility] Last Admin: 04/27/18 02:04 Dose: 40 mg Potassium Phos/Sodium Phos (Neutra-Phos) 1 pkt PO TID [facility] Stop: 04/27/18 10:01 Last Admin: 04/26/18 17:17 Dose: 1 pkt Rosuvastatin Calcium (Crestor) 5 mg PO HS [facility] Last Admin: 04/24/18 22:00 Dose: 5 mg Sucralfate (Carafate Oral Susp) 1 gm PO TID [facility] Last Admin: 04/26/18 17:17 Dose: 1 gm Vitamin A (Vitamin A & D Oint Ud Foilpak) 0.5 ea TOP Q4 PRN PRN Reason: Dry mouth Last Admin: 04/23/18 15:56 Dose: 0.5 ea - Labs Labs: 04/27/18 05:32 04/27/18 05:32 PT 11.6 SECONDS (9.7-12.2) 04/25/18 06:25 INR 1.1 04/25/18 06:25 APTT 48 SECONDS (21-34) H D 04/26/18 05:48 - Constitutional Appears: Non-toxic, Chronically Ill - Head Exam Head Exam: ATRAUMATIC, NORMOCEPHALIC - Eye Exam Eye Exam: absent: Conjunctival injection, Scleral icterus Additional comments: keeps eyes closed, not resisting external lid opening, no spontaneous eye movements observed - ENT Exam Additional comments: intubated - Neck Exam Neck Exam: Thyromegaly. absent: Lymphadenopathy - Respiratory Exam Additional comments: intubated and mechanically ventilated, lungs clear to auscultation, no appreciated rales/ronchi/wheezes - Cardiovascular Exam Cardiovascular Exam: REGULAR RHYTHM, RRR, +S1, +S2. absent: Bradycardia, Tachycardia, Irregular Rhythm, JVD, +S4 - GI/Abdominal Exam GI & Abdominal Exam: Soft, Normal Bowel Sounds. absent: Firm, Rigid - Extremities Exam Extremities Exam: absent: Pedal Edema Additional comments: wearing SCDs and weight offloading boots bilaterally - Neurological Exam Additional comments: off sedation but remains unresponsive, no spontaneous movements appreciated - Psychiatric Exam Additional comments: unable to assess as unresponsive off sedation - Skin Skin Exam: Dry, Intact, Normal Color, Warm Assessment and Plan - Assessment and Plan (Free Text) Assessment: This is a 67 yo [place] F with PMH of HTN, HLD, anxiety, CVA with residual L sided weakness, COPD, and CAD s/p stenting who presented in respiratory distress, now undergoing evaluation for possible thyroid and/or pancreatic CA. Endocrinology was consulted for the multinodular thyroid gland. Hospital course complicated by respiratory distress requiring re-intubation, now with NSTEMI and worsening renal function. Currently DNR, pending possible DNI and terminal extubation tomorrow, pending final family determination. 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 Patient seen and examined, to be discussed with attending, Dr. Erazo. Further recs as per attending.
[2018-04-27 08:43] LABS: ANISOCYTOSIS SLIGHT; BANDS 11 % (0-2); EOSINOPHIL 1 % (0-4); HYPOCHROMIC SLIGHT; LYMPHOCYTE 4 % (20-40); MONOCYTE 1 % (0-10); NEUTROPHIL 83 % (50-75); NUCLEATED RED BLOOD CELL 1 % (0-0); PLATELET ESTIMATE DECREASED (NORMAL); POIKILOCYTOSIS SLIGHT; TOTAL CELLS COUNTED 100
[2018-04-27 08:44] LABS: MICROCYTOSIS SLIGHT; TARGET CELLS SLIGHT
--- NOTE | 2018-04-27 08:57 | CP.CCUPN ---
CCU Subjective - Physician Review Subjective (Free Text): Critical care progress note for Dr. Millan. Patient seen and examined at bedside. No overnight events reported. Patient remains intubated, but started on CPAP trials. Patient continues to be off sedation; however patient is not arousable; minimally arousble to suction. Unable to obtain ROS due to intubation. Over weelkend heparin was held due to decreasing platelets and dark black stools. CCU Objective - Vital Signs / Intake & Output Vital Signs (Last 4 hours): Vital Signs Temp Pulse Resp BP Pulse Ox 04/27/18 08:00 98.9 F 79 16 100 04/27/18 07:32 79 18 129/80 100 04/27/18 07:00 91 H 22 100 04/27/18 06:32 82 17 115/77 100 04/27/18 05:32 97 H 17 124/88 100 Intake and Output (Last 8hrs): Intake & Output 04/26/18 04/27/18 04/27/18 22:59 06:59 14:59 Intake Total 1800 900 80 Output Total 600 Balance 1800 300 80 Weight 84 lb 3.2 oz Intake: Intake, IV Amount 1800 740 60 Left Hand 1000 Left Wrist 800 740 60 Tube Feeding 10 20 Other 150 Output: Urine 600 Urine, Voided 600 Other: # Bowel Movements 1 1 - Physical Exam Head: Positive for: Atraumatic, Normocephalic Conjunctiva: Positive for: Normal Mouth: Positive for: Moist Mucous Membranes Neck: Positive for: Other (mass R side) Respiratory/Chest: Positive for: Decreased Breath Sounds Cardiovascular: Positive for: Normal S1, S2 Abdomen: Positive for: Normal Bowel Sounds Upper Extremity: Positive for: Other (limited movement left upper extremity) Lower Extremity: Positive for: Edema Neurological: Positive for: Other (intubated) Skin: Positive for: Warm, Normal Color - Medications Active Medications: Active Medications Generic Name Dose Route Start Last Admin Trade Name Freq PRN Reason Stop Dose Admin Acetaminophen 650 mg 04/23/18 11:35 04/26/18 10:06 Tylenol 650mg/20.3ml Solution Ud PO 650 mg Q4H PRN Administration Temperature Fever >100.4 F Aspirin 81 mg 04/23/18 10:00 04/25/18 09:06 Aspirin Chewable PO 81 mg DAILY RODRIGO Administration Clopidogrel Bisulfate 75 mg 04/23/18 10:00 04/25/18 09:06 Plavix PO 75 mg DAILY RODRIGO Administration Ferrous Sulfate 300 mg 04/19/18 19:00 04/26/18 17:17 Feosol Liq PO 300 mg TID RODRIGO Administration Fluconazole 100 mls @ 100 mls/hr 04/14/18 18:30 04/26/18 18:22 Diflucan Iv 200 Mg/100 Ml Ns IVPB 100 mls/hr Q24H RODRIGO Administration Protocol Linezolid 600 mg in 300 mls @ 200 mls/hr 04/24/18 18:00 04/27/18 05:39 Zyvox 600mg/300ml D5w IVPB 200 mls/hr Q12H RODRIGO Administration Protocol Dextrose 1,000 mls @ 60 mls/hr 04/24/18 19:15 04/26/18 23:33 Dextrose 5% In Water 1000 Ml IV 60 mls/hr .[id number] RODRIGO Administration Piperacillin Sod/Tazobactam 100 mls @ 200 mls/hr 04/26/18 16:00 04/27/18 08:21 Sod 3.375 gm/ Sodium Chloride IVPB 200 mls/hr Q8H RODRIGO Administration Protocol Insulin Aspart 0 unit 04/12/18 18:00 04/27/18 05:40 Novolog SC Not Given Q6H [facility] Protocol Levothyroxine Sodium 100 mcg 04/22/18 10:00 04/26/18 10:07 Synthroid IVP 100 mcg DAILY RODRIGO Administration Multivitamins 1 tab 04/18/18 10:00 04/26/18 10:07 Hexavitamin PO 1 tab DAILY RODRIGO Administration Pantoprazole Sodium 40 mg 04/23/18 14:45 04/27/18 02:04 Protonix Inj IVP 40 mg Q12H RODRIGO Administration Potassium Phos/Sodium Phos 1 pkt 04/25/18 10:00 04/26/18 17:17 Neutra-Phos PO 04/27/18 10:01 1 pkt TID RODRIGO Administration Rosuvastatin Calcium 5 mg 04/10/18 22:00 04/24/18 22:00 Crestor PO 5 mg HS RODRIGO Administration Sucralfate 1 gm 04/24/18 10:00 04/26/18 17:17 Carafate Oral Susp PO 1 gm TID RODRIGO Administration Vitamin A 0.5 ea 04/10/18 14:21 04/23/18 15:56 Vitamin A & D Oint Ud Foilpak TOP 0.5 ea Q4 PRN Administration Dry mouth - Patient Studies Lab Studies: Microbiology Studies 04/22/18 14:30 Blood Culture - Preliminary Blood NO GROWTH AFTER 4 DAYS 04/22/18 14:00 Blood Culture - Preliminary Blood NO GROWTH AFTER 4 DAYS Lab Studies 04/27/18 04/27/18 04/27/18 Range/Units 06:45 06:31 05:37 WBC (4.8-10.8) K/uL RBC (3.80-5.20) Mil/uL Hgb (11.0-16.0) g/dL Hct (34.0-47.0) % MCV (81.0-99.0) fL MCH (27.0-31.0) pg MCHC (33.0-37.0) g/dL RDW (11.5-14.5) % Plt Count (130-400) K/uL MPV (7.2-11.7) fL Neut % (Auto) (50.0-75.0) % Lymph % (Auto) (20.0-40.0) % [place] % (Auto) (0.0-10.0) % Eos % (Auto) (0.0-4.0) % Baso % (Auto) (0.0-2.0) % Neut # (Auto) (1.8-7.0) K/uL Lymph # (Auto) (1.0-4.3) K/uL [place] # (Auto) (0.0-0.8) K/uL Eos # (Auto) (0.0-0.7) K/uL Baso # (Auto) (0.0-0.2) K/uL Neutrophils % (Manual) (50-75) % Band Neutrophils % (0-2) % Lymphocytes % (Manual) (20-40) % Monocytes % (Manual) (0-10) % Eosinophils % (Manual) (0-4) % Nucleated RBC % (0-0) % Platelet Estimate (NORMAL) Large Platelets Polychromasia Hypochromasia (manual) Poikilocytosis (manual Anisocytosis (manual) Microcytosis (manual) Target Cells Puncture Site Rb pCO2 29 L (35-45) mm/Hg pO2 98 (80-100) mm/Hg HCO3 23.8 (21-28) mmol/L ABG pH 7.48 H (7.35-7.45) ABG Total CO2 22.5 (22-28) mmol/L ABG O2 Saturation 98.9 H (95-98) % ABG Base Excess -1.5 (-2.0-3.0) mmol/L ABG Hemoglobin 8.2 L (11.7-17.4) g/dL ABG Carboxyhemoglobin 1.6 H (0.5-1.5) % POC ABG HHb (Measured) 1.1 (0.0-5.0) % ABG Methemoglobin 0.7 (0.0-3.0) % Caesar Test Na A-a O2 Difference 151.0 mm/Hg Respiratory Index 1.5 Hgb O2 Saturation 96.6 (95.0-98.0) % Vent Mode Prvc Mechanical Rate 14 FiO2 40.0 % Tidal Volume 400 PEEP 5 Sodium (132-148) mmol/L Potassium (3.6-5.2) mmol/L Chloride (98-107) mmol/L Carbon Dioxide (22-30) mmol/L Anion Gap (10-20) BUN (7-17) mg/dL Creatinine (0.7-1.2) mg/dL Est GFR ( Amer) Est GFR (Non-Af Amer) POC Glucose (mg/dL) 129 H (65-110) mg/dL Random Glucose (65-105) mg/dL Calcium (8.6-10.4) mg/dl Phosphorus (2.5-4.5) mg/dL Magnesium (1.6-2.3) mg/dL Total Bilirubin (0.2-1.3) mg/dL AST (14-36) U/L ALT (9-52) U/L Alkaline Phosphatase (38-126) U/L Total Protein (6.3-8.3) g/dL Albumin (3.5-5.0) g/dL Globulin (2.2-3.9) gm/dL Albumin/Globulin Ratio (1.0-2.1) Blood Type O POSITIVE Antibody Screen Negative 02/25/19 02/25/19 02/24/19 Range/Units 05:32 05:32 23:33 WBC 15.8 H (4.8-10.8) K/uL RBC 2.67 L (3.80-5.20) Mil/uL Hgb 8.4 L (11.0-16.0) g/dL Hct 26.6 L (34.0-47.0) % MCV 99.6 H D (81.0-99.0) fL MCH 31.3 H (27.0-31.0) pg MCHC 31.4 L (33.0-37.0) g/dL RDW 17.5 H (11.5-14.5) % Plt Count 42 L D (130-400) K/uL MPV 10.7 (7.2-11.7) fL Neut % (Auto) 90.8 H (50.0-75.0) % Lymph % (Auto) 3.6 L (20.0-40.0) % [place] % (Auto) 3.2 (0.0-10.0) % Eos % (Auto) 1.9 (0.0-4.0) % Baso % (Auto) 0.5 (0.0-2.0) % Neut # (Auto) 14.3 H (1.8-7.0) K/uL Lymph # (Auto) 0.6 L (1.0-4.3) K/uL [place] # (Auto) 0.5 (0.0-0.8) K/uL Eos # (Auto) 0.3 (0.0-0.7) K/uL Baso # (Auto) 0.1 (0.0-0.2) K/uL Neutrophils % (Manual) 83 H (50-75) % Band Neutrophils % 11 H* (0-2) % Lymphocytes % (Manual) 4 L (20-40) % Monocytes % (Manual) 1 (0-10) % Eosinophils % (Manual) 1 (0-4) % Nucleated RBC % 1 H (0-0) % Platelet Estimate Decreased L (NORMAL) Large Platelets Polychromasia Hypochromasia (manual) Slight Poikilocytosis (manual Slight Anisocytosis (manual) Slight Microcytosis (manual) Slight Target Cells Slight Puncture Site pCO2 (35-45) mm/Hg pO2 (80-100) mm/Hg HCO3 (21-28) mmol/L ABG pH (7.35-7.45) ABG Total CO2 (22-28) mmol/L ABG O2 Saturation (95-98) % ABG Base Excess (-2.0-3.0) mmol/L ABG Hemoglobin (11.7-17.4) g/dL ABG Carboxyhemoglobin (0.5-1.5) % POC ABG HHb (Measured) (0.0-5.0) % ABG Methemoglobin (0.0-3.0) % Caesar Test A-a O2 Difference mm/Hg Respiratory Index Hgb O2 Saturation (95.0-98.0) % Vent Mode Mechanical Rate FiO2 % Tidal Volume PEEP Sodium 139 (132-148) mmol/L Potassium 3.7 (3.6-5.2) mmol/L Chloride 114 H (98-107) mmol/L Carbon Dioxide 24 (22-30) mmol/L Anion Gap 5 L (10-20) BUN 29 H (7-17) mg/dL Creatinine 0.8 (0.7-1.2) mg/dL Est GFR ( Amer) > 60 Est GFR (Non-Af Amer) > 60 POC Glucose (mg/dL) 136 H (65-110) mg/dL Random Glucose 127 H (65-105) mg/dL Calcium 8.0 L (8.6-10.4) mg/dl Phosphorus 3.0 (2.5-4.5) mg/dL Magnesium 1.7 (1.6-2.3) mg/dL Total Bilirubin 0.9 (0.2-1.3) mg/dL AST 221 H (14-36) U/L ALT 649 H (9-52) U/L Alkaline Phosphatase 148 H (38-126) U/L Total Protein 4.5 L (6.3-8.3) g/dL Albumin 2.0 L (3.5-5.0) g/dL Globulin 2.4 (2.2-3.9) gm/dL Albumin/Globulin Ratio 0.8 L (1.0-2.1) Blood Type Antibody Screen 04/26/18 04/26/18 04/26/18 Range/Units 17:37 14:12 11:28 WBC 16.3 H (4.8-10.8) K/uL RBC 2.61 L (3.80-5.20) Mil/uL Hgb 8.2 L (11.0-16.0) g/dL Hct 25.3 L (34.0-47.0) % MCV 97.0 (81.0-99.0) fL MCH 31.3 H (27.0-31.0) pg MCHC 32.3 L (33.0-37.0) g/dL RDW 17.1 H (11.5-14.5) % Plt Count 77 L (130-400) K/uL MPV 12.2 H (7.2-11.7) fL Neut % (Auto) 87.5 H (50.0-75.0) % Lymph % (Auto) 4.7 L (20.0-40.0) % [place] % (Auto) 3.3 (0.0-10.0) % Eos % (Auto) 3.2 (0.0-4.0) % Baso % (Auto) 1.3 (0.0-2.0) % Neut # (Auto) 14.2 H (1.8-7.0) K/uL Lymph # (Auto) 0.8 L (1.0-4.3) K/uL [place] # (Auto) 0.5 (0.0-0.8) K/uL Eos # (Auto) 0.5 (0.0-0.7) K/uL Baso # (Auto) 0.2 (0.0-0.2) K/uL Neutrophils % (Manual) 69 (50-75) % Band Neutrophils % 14 H* (0-2) % Lymphocytes % (Manual) 8 L (20-40) % Monocytes % (Manual) 4 (0-10) % Eosinophils % (Manual) 5 H (0-4) % Nucleated RBC % 1 H (0-0) % Platelet Estimate Decreased L (NORMAL) Large Platelets Present Polychromasia Slight Hypochromasia (manual) Poikilocytosis (manual Anisocytosis (manual) Moderate Microcytosis (manual) Target Cells Puncture Site pCO2 (35-45) mm/Hg pO2 (80-100) mm/Hg HCO3 (21-28) mmol/L ABG pH (7.35-7.45) ABG Total CO2 (22-28) mmol/L ABG O2 Saturation (95-98) % ABG Base Excess (-2.0-3.0) mmol/L ABG Hemoglobin (11.7-17.4) g/dL ABG Carboxyhemoglobin (0.5-1.5) % POC ABG HHb (Measured) (0.0-5.0) % ABG Methemoglobin (0.0-3.0) % Caesar Test A-a O2 Difference mm/Hg Respiratory Index Hgb O2 Saturation (95.0-98.0) % Vent Mode Mechanical Rate FiO2 % Tidal Volume PEEP Sodium (132-148) mmol/L Potassium (3.6-5.2) mmol/L Chloride (98-107) mmol/L Carbon Dioxide (22-30) mmol/L Anion Gap (10-20) BUN (7-17) mg/dL Creatinine (0.7-1.2) mg/dL Est GFR ( Amer) Est GFR (Non-Af Amer) POC Glucose (mg/dL) 156 H 175 H (65-110) mg/dL Random Glucose (65-105) mg/dL Calcium (8.6-10.4) mg/dl Phosphorus (2.5-4.5) mg/dL Magnesium (1.6-2.3) mg/dL Total Bilirubin (0.2-1.3) mg/dL AST (14-36) U/L ALT (9-52) U/L Alkaline Phosphatase (38-126) U/L Total Protein (6.3-8.3) g/dL Albumin (3.5-5.0) g/dL Globulin (2.2-3.9) gm/dL Albumin/Globulin Ratio (1.0-2.1) Blood Type Antibody Screen Laboratory Results - last 24 hr 04/26/18 04/26/18 04/26/18 11:28 14:12 17:37 WBC 16.3 H RBC 2.61 L Hgb 8.2 L Hct 25.3 L MCV 97.0 MCH 31.3 H MCHC 32.3 L RDW 17.1 H Plt Count 77 L MPV 12.2 H Neut % (Auto) 87.5 H Lymph % (Auto) 4.7 L [place] % (Auto) 3.3 Eos % (Auto) 3.2 Baso % (Auto) 1.3 Neut # (Auto) 14.2 H Lymph # (Auto) 0.8 L [place] # (Auto) 0.5 Eos # (Auto) 0.5 Baso # (Auto) 0.2 Neutrophils % (Manual) 69 Band Neutrophils % 14 H* Lymphocytes % (Manual) 8 L Monocytes % (Manual) 4 Eosinophils % (Manual) 5 H Nucleated RBC % 1 H Platelet Estimate Decreased L Large Platelets Present Polychromasia Slight Hypochromasia (manual) Poikilocytosis (manual Anisocytosis (manual) Moderate Microcytosis (manual) Target Cells Puncture Site pCO2 pO2 HCO3 ABG pH ABG Total CO2 ABG O2 Saturation ABG Base Excess ABG Hemoglobin ABG Carboxyhemoglobin POC ABG HHb (Measured) ABG Methemoglobin Caesar Test A-a O2 Difference Respiratory Index Hgb O2 Saturation Vent Mode Mechanical Rate FiO2 Tidal Volume PEEP Sodium Potassium Chloride Carbon Dioxide Anion Gap BUN Creatinine Est GFR ( Amer) Est GFR (Non-Af Amer) POC Glucose (mg/dL) 175 H 156 H Random Glucose Calcium Phosphorus Magnesium Total Bilirubin AST ALT Alkaline Phosphatase Total Protein Albumin Globulin Albumin/Globulin Ratio Blood Type Antibody Screen 04/26/18 04/27/18 04/27/18 23:33 05:32 05:32 WBC 15.8 H RBC 2.67 L Hgb 8.4 L Hct 26.6 L MCV 99.6 H D MCH 31.3 H MCHC 31.4 L RDW 17.5 H Plt Count 42 L D MPV 10.7 Neut % (Auto) 90.8 H Lymph % (Auto) 3.6 L [place] % (Auto) 3.2 Eos % (Auto) 1.9 Baso % (Auto) 0.5 Neut # (Auto) 14.3 H Lymph # (Auto) 0.6 L [place] # (Auto) 0.5 Eos # (Auto) 0.3 Baso # (Auto) 0.1 Neutrophils % (Manual) 83 H Band Neutrophils % 11 H* Lymphocytes % (Manual) 4 L Monocytes % (Manual) 1 Eosinophils % (Manual) 1 Nucleated RBC % 1 H Platelet Estimate Decreased L Large Platelets Polychromasia Hypochromasia (manual) Slight Poikilocytosis (manual Slight Anisocytosis (manual) Slight Microcytosis (manual) Slight Target Cells Slight Puncture Site pCO2 pO2 HCO3 ABG pH ABG Total CO2 ABG O2 Saturation ABG Base Excess ABG Hemoglobin ABG Carboxyhemoglobin POC ABG HHb (Measured) ABG Methemoglobin Caesar Test A-a O2 Difference Respiratory Index Hgb O2 Saturation Vent Mode Mechanical Rate FiO2 Tidal Volume PEEP Sodium 139 Potassium 3.7 Chloride 114 H Carbon Dioxide 24 Anion Gap 5 L BUN 29 H Creatinine 0.8 Est GFR ( Amer) > 60 Est GFR (Non-Af Amer) > 60 POC Glucose (mg/dL) 136 H Random Glucose 127 H Calcium 8.0 L Phosphorus 3.0 Magnesium 1.7 Total Bilirubin 0.9 AST 221 H ALT 649 H Alkaline Phosphatase 148 H Total Protein 4.5 L Albumin 2.0 L Globulin 2.4 Albumin/Globulin Ratio 0.8 L Blood Type Antibody Screen 04/27/18 04/27/18 04/27/18 05:37 06:31 06:45 WBC RBC Hgb Hct MCV MCH MCHC RDW Plt Count MPV Neut % (Auto) Lymph % (Auto) [place] % (Auto) Eos % (Auto) Baso % (Auto) Neut # (Auto) Lymph # (Auto) [place] # (Auto) Eos # (Auto) Baso # (Auto) Neutrophils % (Manual) Band Neutrophils % Lymphocytes % (Manual) Monocytes % (Manual) Eosinophils % (Manual) Nucleated RBC % Platelet Estimate Large Platelets Polychromasia Hypochromasia (manual) Poikilocytosis (manual Anisocytosis (manual) Microcytosis (manual) Target Cells Puncture Site Rb pCO2 29 L pO2 98 HCO3 23.8 ABG pH 7.48 H ABG Total CO2 22.5 ABG O2 Saturation 98.9 H ABG Base Excess -1.5 ABG Hemoglobin 8.2 L ABG Carboxyhemoglobin 1.6 H POC ABG HHb (Measured) 1.1 ABG Methemoglobin 0.7 Caesar Test Na A-a O2 Difference 151.0 Respiratory Index 1.5 Hgb O2 Saturation 96.6 Vent Mode Prvc Mechanical Rate 14 FiO2 40.0 Tidal Volume 400 PEEP 5 Sodium Potassium Chloride Carbon Dioxide Anion Gap BUN Creatinine Est GFR ( Amer) Est GFR (Non-Af Amer) POC Glucose (mg/dL) 129 H Random Glucose Calcium Phosphorus Magnesium Total Bilirubin AST ALT Alkaline Phosphatase Total Protein Albumin Globulin Albumin/Globulin Ratio Blood Type O POSITIVE Antibody Screen Negative Fingerstick Blood Sugar Results: 159 Review of Systems - Review of Systems Systems not reviewed;Unavailable: Intubated Critical Care Progress Note - Ventilator Checklist Head of Bed 30 Degrees: Yes Daily Sedation Vacation: Yes Daily Assessment of Readiness to Wean: Yes Daily Spontaneous Breathing Trial: Yes PUD Prophalyxis: Yes - Vent Settings MODE:: PRVC TIDAL VOLUME:: 450 RESP RATE:: 14 FIO2:: 40 PEEP:: 5 - Extremities/Vascular Does the Patient have a Central Venous Catheter?: No Does the Patient need a Central Venous Catheter?: No Does the Patient have a Walsh Catheter?: No Does the Patient need a Walsh Catheter?: No - Prophylaxis GI Prophylaxis GI: PPI - Prophylaxis DVT Prophylaxis DVT: Not Indicated Assessment/Plan - Assessment and Plan (Free Text) Assessment: 67 year old female with PMhx of HTN, anxiety, 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 Pt transferred to ICU for respiratory distress/ elevated troponins, intubated 04/22, currently weaning. Currently on contact due to VRDE in urine. DEVIN resolved, acute liver failure resolving. CT 04/27 multiple subacute infarcts w/ midline shift. Possible trach/peg? Possible DNI pending family meeting scheduled for 04/27. Currently DNR. Plan: Neuro - HOB 30 degrees - Intubated - CPAP trials - CT head 04/27: multiple subacute infacts, midline shift - Will f/u neuro recs - Possible terminal extubation tomorrow Cardio - C/w plavix 75 mg daily 2/2 recent CAD w/ stent - hold aspirin & heparin in [place] of decreasing platelets - per cardio: medical management - BP stable Pulm - ABG 7.48/29/98/23.8 - Ventilator settings AC TV 350, PEEP 5 mm Hg, rate of 14, FIO2 of 50 - Now on CPAP trials Endo - Hx of hypothyroidism - C/w Levothyroxine 100 mg IVP Heme - Hgb steady in 8s - continue to monitor - WBC elevated 2/2 to UTI -VDRE & yeast - afebrile > 24H - Linezolid 600 Q12 04/24 started - Fluconozole 100 mg daily - currently downtrending GI - peg tube on hold until patient stable - NG tube feeds held due to possible GI bleed - Protonix 40 mg q12h - AST/ ALT downtrending Nephrology - BUN/Cr 29/0.8, DEVIN resolved - replenish electrolytes ID - Fluconazole for yeast in urine - Urine culture positive E. faecalis - Per ID, Dr. Land Linezolid 600 Q12 PPx: - DVT: SCDS - GI: Protonix 40 mg IV Q12
--- NOTE | 2018-04-27 10:03 | RAD ---
Date of service: 04/27/2018 HISTORY: intubated COMPARISON: No prior. FINDINGS: LUNGS: No active pulmonary disease. PLEURA: No significant pleural effusion identified, no pneumothorax apparent. CARDIOVASCULAR: No aortic atherosclerotic calcification present. Normal cardiac size. ET tube and NG tube grossly unchanged. OSSEOUS STRUCTURES: No significant abnormalities. VISUALIZED UPPER ABDOMEN: Normal. OTHER FINDINGS: None. IMPRESSION: No active disease.
[2018-04-27 10:11] LABS: CK-MB 1.73 ng/mL (0.0-3.38)
[2018-04-27] MEDS: Levothyroxine 100 mcg (0.1 mg) Inj IVP SCH (10:13)
[2018-04-27] MEDS: Sucralfate 1 gm/10 ml Oral Susp UD PO SCH ×3 (10:13→17:00)
[2018-04-27] MEDS: Potassium & Sodium Phosphate PO SCH (10:13)
[2018-04-27] MEDS: Ferrous Sulfate 300 mg/5 mL Liq UD PO SCH ×3 (10:13→17:00)
[2018-04-27] MEDS: Multiple Vitamins Tab PO SCH (10:14)
--- NOTE | 2018-04-27 12:00 | CT ---
Date of service: 04/27/2018 PROCEDURE: CT HEAD WITHOUT CONTRAST. HISTORY: ams COMPARISON: MRI brain without contrast from 04/14/2018 TECHNIQUE: Axial computed tomography images were obtained through the head/brain without intravenous contrast. Radiation dose: Total exam DLP = 943.76 mGy-cm. This CT exam was performed using one or more of the following dose reduction techniques: Automated exposure control, adjustment of the mA and/or kV according to patient size, and/or use of iterative reconstruction technique. FINDINGS: HEMORRHAGE: No intracranial hemorrhage. BRAIN: There is a large subacute infarction in the right cerebellar hemisphere with associated edema, mass effect on the midbrain and ade and 10 mm midline shift from right to left. There is also subacute infarction in the posterior occipital lobe, focal subacute infarction in the left cerebellar hemisphere, subacute infarction in the left parieto-occipital watershed territory and left frontoparietal watershed territory. There is redemonstration of subacute infarction in the left corpus callosum. There is an old lacunar infarction in the bilateral centrum semiovale, right anterior limb of internal capsule and left basal ganglia, left thalamus as well as right external capsule. There are mild chronic microangiopathic changes. VENTRICLES: There is mild age-related global parenchymal volume loss and proportionate enlargement of the ventricles and cortical sulci. 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 PARANASAL SINUSES: Predominantly clear. MASTOID AIR CELLS: Bilateral mastoid air cells are underdeveloped with OTHER FINDINGS: None. IMPRESSION: 1. Large right [employer] territory infarction involving the right cerebellar hemisphere with associated edema and mass effect on the right midbrain, ade with 10 mm posterior fossa midline shift from right to left. 2. Multifocal anterior and posterior circulation subacute infarctions in both cerebellar hemispheres, right posterior occipital lobe, left parieto-occipital watershed territory, left frontoparietal watershed territory and left paramedian corpus callosum, the largest in the right cerebellar hemisphere. 3. Mild chronic microangiopathic changes and mild age-related global parenchymal volume loss. Lacunar infarctions in centrum semiovale, right anterior limb of internal capsule, left basal ganglia, left thalamus and right external capsule. Critical findings were discussed with Dr. Armin Hunter in ICU on 04/27/2018 at 11:45 a.m.
--- NOTE | 2018-04-27 13:26 | CP.PCM.PN ---
Subjective - Date & Time of Evaluation Date of Evaluation: 04/27/18 Time of Evaluation: 13:24 - Subjective Subjective: Still intubated and sedated. Objective - Vital Signs/Intake and Output Vital Signs (last 24 hours): Temp Pulse Resp BP Pulse Ox 99.5 F 92 H 20 138/85 100 04/27/18 11:41 04/27/18 13:00 04/27/18 13:00 04/27/18 12:32 04/27/18 13:00 Intake and Output: 04/27/18 04/27/18 06:59 18:59 Intake Total 2180 600 Output Total 600 Balance 1580 600 - Medications Medications: Current Medications Acetaminophen (Tylenol 650mg/20.3ml Solution Ud) 650 mg PO Q4H PRN PRN Reason: Temperature Fever >100.4 F Last Admin: 04/26/18 10:06 Dose: 650 mg Aspirin (Aspirin Chewable) 81 mg PO DAILY [facility] Last Admin: 04/27/18 13:09 Dose: Not Given Clopidogrel Bisulfate (Plavix) 75 mg PO DAILY [facility] Last Admin: 04/25/18 09:06 Dose: 75 mg Clopidogrel Bisulfate (Plavix) 75 mg PO ONCE ONE Stop: 04/27/18 13:31 Last Admin: 04/27/18 13:20 Dose: 75 mg Ferrous Sulfate (Feosol Liq) 300 mg PO TID RODRIGO Last Admin: 04/27/18 13:10 Dose: 300 mg Fluconazole (Diflucan Iv 200 Mg/100 Ml Ns) 100 mls @ 100 mls/hr IVPB Q24H RODRIGO; Protocol Last Admin: 04/26/18 18:22 Dose: 100 mls/hr Linezolid (Zyvox 600mg/300ml D5w) 600 mg in 300 mls @ 200 mls/hr IVPB Q12H RODRIGO; Protocol Last Admin: 04/27/18 05:39 Dose: 200 mls/hr Dextrose (Dextrose 5% In Water 1000 Ml) 1,000 mls @ 60 mls/hr IV .[id number] RODRIGO Last Admin: 04/26/18 23:33 Dose: 60 mls/hr Piperacillin Sod/Tazobactam (Sod 3.375 gm/ Sodium Chloride) 100 mls @ 200 mls/hr IVPB Q8H RODRIGO; Protocol Last Admin: 04/27/18 08:21 Dose: 200 mls/hr Insulin Aspart (Novolog) 0 unit SC Q6H [facility]; Protocol Last Admin: 04/27/18 11:41 Dose: Not Given Levothyroxine Sodium (Synthroid) 100 mcg IVP DAILY [facility] Last Admin: 04/27/18 10:13 Dose: 100 mcg Multivitamins (Hexavitamin) 1 tab PO DAILY [facility] Last Admin: 04/27/18 10:14 Dose: 1 tab Pantoprazole Sodium (Protonix Inj) 40 mg IVP Q12H [facility] Last Admin: 04/27/18 02:04 Dose: 40 mg Rosuvastatin Calcium (Crestor) 5 mg PO HS RODRIGO Last Admin: 04/24/18 22:00 Dose: 5 mg Sucralfate (Carafate Oral Susp) 1 gm PO TID [facility] Last Admin: 04/27/18 13:11 Dose: 1 gm Vitamin A (Vitamin A & D Oint Ud Foilpak) 0.5 ea TOP Q4 PRN PRN Reason: Dry mouth Last Admin: 04/23/18 15:56 Dose: 0.5 ea - Labs Labs: 04/27/18 05:32 04/27/18 05:32 PT 11.6 SECONDS (9.7-12.2) 04/25/18 06:25 INR 1.1 04/25/18 06:25 APTT 48 SECONDS (21-34) H D 04/26/18 05:48 - Head Exam Head Exam: NORMOCEPHALIC - Neck Exam Neck Exam: Normal Inspection - Respiratory Exam Additional comments: Intubated. - Cardiovascular Exam Cardiovascular Exam: REGULAR RHYTHM Assessment and Plan (1) NSTEMI (non-ST elevated myocardial infarction) Assessment & Plan: Given the current condition, poor prognosis. Medical management. Status: Acute
[2018-04-27] MEDS: Vitamins A & D Oint UD Foilpak TOP PRN (17:00)
--- NOTE | 2018-04-27 17:38 | CP.PCM.PN ---
Subjective - Date & Time of Evaluation Date of Evaluation: 04/27/18 Time of Evaluation: 08:20 - Subjective Subjective: Patient seen and examined Intubated on ventilatory support No change in mental status Objective - Vital Signs/Intake and Output Vital Signs (last 24 hours): Temp Pulse Resp BP Pulse Ox 99 F 83 19 123/78 100 04/27/18 15:49 04/27/18 17:32 04/27/18 17:32 04/27/18 17:32 04/27/18 17:32 Intake and Output: 04/27/18 04/27/18 06:59 18:59 Intake Total 2180 980 Output Total 600 Balance 1580 980 - Medications Medications: Current Medications Acetaminophen (Tylenol 650mg/20.3ml Solution Ud) 650 mg PO Q4H PRN PRN Reason: Temperature Fever >100.4 F Last Admin: 04/26/18 10:06 Dose: 650 mg Aspirin (Aspirin Chewable) 81 mg PO DAILY [facility] Last Admin: 04/27/18 13:09 Dose: Not Given Clopidogrel Bisulfate (Plavix) 75 mg PO DAILY [facility] Last Admin: 04/25/18 09:06 Dose: 75 mg Ferrous Sulfate (Feosol Liq) 300 mg PO TID [facility] Last Admin: 04/27/18 17:00 Dose: 300 mg Fluconazole (Diflucan Iv 200 Mg/100 Ml Ns) 100 mls @ 100 mls/hr IVPB Q24H [facility]; Protocol Last Admin: 04/26/18 18:22 Dose: 100 mls/hr Linezolid (Zyvox 600mg/300ml D5w) 600 mg in 300 mls @ 200 mls/hr IVPB Q12H [facility]; Protocol Last Admin: 04/27/18 17:00 Dose: 200 mls/hr Dextrose (Dextrose 5% In Water 1000 Ml) 1,000 mls @ 60 mls/hr IV .[id number] [facility] Last Admin: 04/27/18 14:16 Dose: Not Given Piperacillin Sod/Tazobactam (Sod 3.375 gm/ Sodium Chloride) 100 mls @ 200 mls/hr IVPB Q8H [facility]; Protocol Last Admin: 04/27/18 15:36 Dose: 200 mls/hr Insulin Aspart (Novolog) 0 unit SC Q6H [facility]; Protocol Last Admin: 04/27/18 11:41 Dose: Not Given Levothyroxine Sodium (Synthroid) 100 mcg IVP DAILY [facility] Last Admin: 04/27/18 10:13 Dose: 100 mcg Multivitamins (Hexavitamin) 1 tab PO DAILY [facility] Last Admin: 04/27/18 10:14 Dose: 1 tab Pantoprazole Sodium (Protonix Inj) 40 mg IVP Q12H [facility] Last Admin: 04/27/18 14:22 Dose: 40 mg Rosuvastatin Calcium (Crestor) 5 mg PO HS [facility] Last Admin: 04/24/18 22:00 Dose: 5 mg Sucralfate (Carafate Oral Susp) 1 gm PO TID [facility] Last Admin: 04/27/18 17:00 Dose: 1 gm Vitamin A (Vitamin A & D Oint Ud Foilpak) 0.5 ea TOP Q4 PRN PRN Reason: Dry mouth Last Admin: 04/27/18 17:00 Dose: 0.5 ea - Labs Labs: 04/27/18 05:32 04/27/18 05:32 PT 11.6 SECONDS (9.7-12.2) 04/25/18 06:25 INR 1.1 04/25/18 06:25 APTT 48 SECONDS (21-34) H D 04/26/18 05:48 - Head Exam Head Exam: ATRAUMATIC, NORMOCEPHALIC - Neck Exam Neck Exam: Normal Inspection - Respiratory Exam Respiratory Exam: Decreased Breath Sounds - Cardiovascular Exam Cardiovascular Exam: REGULAR RHYTHM - GI/Abdominal Exam GI & Abdominal Exam: Soft, Normal Bowel Sounds Assessment and Plan (1) Acute respiratory failure Assessment & Plan: Continue ventilatory support Family meeting tomorrow Possible trach and PEG Prognosis poor Status: Acute (2) NSTEMI (non-ST elevated myocardial infarction) Status: Acute (3) CVA (cerebral vascular accident) Status: Acute (4) Metastatic cancer Status: Acute (5) COPD exacerbation Status: Acute
[2018-04-27] MEDS: Fluconazole IV 200mg/100 ml NS 100 ML IVPB SCH (18:10)
--- NOTE | 2018-04-27 20:08 | CP.PCM.PN ---
Subjective - Date & Time of Evaluation Date of Evaluation: 04/27/18 Time of Evaluation: 09:00 - Subjective Subjective: chart review still in ICU intubated notes on GIB labs-anemia CXR- no active disease CT head- CVA infart patient seen by bedside reports some sponataneous movement of left arm and eyes patient remained lethargic intubated without sedation discussion of patient;s status is aware Objective - Vital Signs/Intake and Output Vital Signs (last 24 hours): Temp Pulse Resp BP Pulse Ox 99 F 90 22 135/85 100 04/27/18 15:49 04/27/18 19:00 04/27/18 19:00 04/27/18 18:32 04/27/18 19:00 Intake and Output: 04/27/18 04/28/18 18:59 06:59 Intake Total 1290 110 Output Total 125 Balance 1290 -15 - Medications Medications: Current Medications Acetaminophen (Tylenol 650mg/20.3ml Solution Ud) 650 mg PO Q4H PRN PRN Reason: Temperature Fever >100.4 F Last Admin: 04/26/18 10:06 Dose: 650 mg Aspirin (Aspirin Chewable) 81 mg PO DAILY [facility] Last Admin: 04/27/18 13:09 Dose: Not Given Clopidogrel Bisulfate (Plavix) 75 mg PO DAILY [facility] Last Admin: 04/25/18 09:06 Dose: 75 mg Ferrous Sulfate (Feosol Liq) 300 mg PO TID [facility] Last Admin: 04/27/18 17:00 Dose: 300 mg Fluconazole (Diflucan Iv 200 Mg/100 Ml Ns) 100 mls @ 100 mls/hr IVPB Q24H [facility]; Protocol Last Admin: 04/27/18 18:10 Dose: 100 mls/hr Linezolid (Zyvox 600mg/300ml D5w) 600 mg in 300 mls @ 200 mls/hr IVPB Q12H [facility]; Protocol Last Admin: 04/27/18 17:00 Dose: 200 mls/hr Dextrose (Dextrose 5% In Water 1000 Ml) 1,000 mls @ 60 mls/hr IV .[id number] [facility] Last Admin: 04/27/18 14:16 Dose: Not Given Piperacillin Sod/Tazobactam (Sod 3.375 gm/ Sodium Chloride) 100 mls @ 200 mls/hr IVPB Q8H [facility]; Protocol Last Admin: 04/27/18 15:36 Dose: 200 mls/hr Insulin Aspart (Novolog) 0 unit SC Q6H [facility]; Protocol Last Admin: 04/27/18 17:54 Dose: Not Given Levothyroxine Sodium (Synthroid) 100 mcg IVP DAILY [facility] Last Admin: 04/27/18 10:13 Dose: 100 mcg Multivitamins (Hexavitamin) 1 tab PO DAILY [facility] Last Admin: 04/27/18 10:14 Dose: 1 tab Pantoprazole Sodium (Protonix Inj) 40 mg IVP Q12H [facility] Last Admin: 04/27/18 14:22 Dose: 40 mg Rosuvastatin Calcium (Crestor) 5 mg PO HS [facility] Last Admin: 04/24/18 22:00 Dose: 5 mg Sucralfate (Carafate Oral Susp) 1 gm PO TID [facility] Last Admin: 04/27/18 17:00 Dose: 1 gm Vitamin A (Vitamin A & D Oint Ud Foilpak) 0.5 ea TOP Q4 PRN PRN Reason: Dry mouth Last Admin: 04/27/18 17:00 Dose: 0.5 ea - Labs Labs: 04/27/18 05:32 04/27/18 05:32 PT 11.6 SECONDS (9.7-12.2) 04/25/18 06:25 INR 1.1 04/25/18 06:25 APTT 48 SECONDS (21-34) H D 04/26/18 05:48 - Constitutional Appears: Chronically Ill (cahectic, , intubated , lethargic despite no sedation , with some episodic movement of left UE, ) - Head Exam Head Exam: ATRAUMATIC, NORMOCEPHALIC - Respiratory Exam Respiratory Exam: absent: Rales, Wheezes (on vent) - GI/Abdominal Exam GI & Abdominal Exam: absent: Distended (cachectic) - Extremities Exam Extremities Exam: Pedal Edema (Upper extremeties swelling, edema,) - Neurological Exam Neurological Exam: Altered Assessment and Plan - Assessment and Plan (Free Text) Assessment: Patient with Respiratory failure sepsis multiple CVA Cad afib cachexia metastatic lesion with unkonw primary focus Anemia currently family wishes to continue current care but no "code blue" awaiting other family member for final discussion further discussion of patients status with poor prognosis
--- NOTE | 2018-04-28 01:14 | PN ---
DATE: 04/27/2018 ENDOCRINOLOGY FOLLOWUP NOTE LOCATION: ICU room 10. This is a 67-year-old female with recent acute respiratory failure who remains intubated and unresponsive at this time and will possibly undergo terminal extubation per the family's request and is now being followed closely for hemodynamic monitoring in the ICU as noted. Her glycemic levels are near optimal, and glucose values have ranged from 129 to 136 mg/dL. Her chemistry showed a BUN of 29, sodium 139, potassium 3.7, chloride 114, CO2 of 24, glucose 127, and creatinine is 0.8. Her thyroxine level is 4.32 with TSH of 0.59. So at this time, we will continue the levothyroxine given as 100 mcg IV push once daily as ordered. We will obtain serial thyroid studies and adjust her dose regimen accordingly. We will continue the present medical management as given otherwise. The family has opted for just supportive and symptomatic care with no further resuscitation measures otherwise. We will follow. Akiko Erazo MD
[2018-04-28] MEDS: (Novolog) Insulin Aspart, Recombinant 100 u/ml 10 ml vial SC SCH ×3 (05:14→18:47)
[2018-04-28] MEDS: Linezolid 600 mg in D5W 300 ml 600 MG/300 ML BAG IVPB SCH (05:15)
[2018-04-28 06:03] LABS: BASO # 0.1 K/uL (0.0-0.2); BASO % 0.6 % (0.0-2.0); EOS # 0.3 K/uL (0.0-0.7); EOS % 2.4 % (0.0-4.0); HEMOGLOBIN 7.4 g/dL (11.0-16.0); LYMPH # 0.6 K/uL (1.0-4.3); LYMPH % 4.9 % (20.0-40.0); MEAN CELL VOLUME 95.8 fL (81.0-99.0); MEAN CORPUSCULAR HEMOGLOBIN 31.7 pg (27.0-31.0); MEAN CORPUSCULAR HGB CONC 33.1 g/dL (33.0-37.0); MONO # 0.4 K/uL (0.0-0.8); MONO % 3.6 % (0.0-10.0); NEUT % 88.5 % (50.0-75.0); NRBC % 0.4 % (0.0-2.0); RBC 2.33 Mil/uL (3.80-5.20); RED CELL DISTRIBUTION WIDTH 15.8 % (11.5-14.5); WHITE BLOOD COUNT 12.4 K/uL (4.8-10.8)
[2018-04-28 06:21] LABS: PLATELET COUNT 13 K/uL (130-400)
[2018-04-28 06:24] LABS: ALB/GLOB RATIO 0.8 (1.0-2.1); ALBUMIN 1.9 g/dL (3.5-5.0); ALT/SGPT 512 U/L (9-52); AST/SGOT 204 U/L (14-36); BLOOD UREA NITROGEN 27 mg/dL (7-17); CALCIUM 8.2 mg/dl (8.6-10.4); GFR NON-AFRICAN AMERICAN > 60
--- NOTE | 2018-04-28 07:02 | CP.PCM.PN ---
Subjective - Date & Time of Evaluation Date of Evaluation: 04/28/18 Time of Evaluation: 07:00 - Subjective Subjective: Endocrine Service Progress Note for Dr. Castro Rogers DO, IM PGY-3 Patient seen and examined at bedside in the ICU. Remains intubated, unresponsive despite off sedation, only grimaced slight to sternal rub. On contact precautions due to VRDE in urine. Head CT obtained yesterday high concerning for cerebral edema with 10mm midline shift of posterior fossa, as well as multifocal anterior and posterior circulation subacute infarctions on both the left and right sides. Trop also elevated at 2.64. As per ICU staff, family was considering terminal extubation today, but is now deferring until Friday. Objective - Vital Signs/Intake and Output Vital Signs (last 24 hours): Temp Pulse Resp BP Pulse Ox 98.7 F 82 17 126/74 100 04/28/18 04:00 04/28/18 06:33 04/28/18 06:33 04/28/18 06:33 04/28/18 06:33 Intake and Output: 04/28/18 04/28/18 06:59 18:59 Intake Total 1360 Output Total 775 Balance 585 - Medications Medications: Current Medications Acetaminophen (Tylenol 650mg/20.3ml Solution Ud) 650 mg PO Q4H PRN PRN Reason: Temperature Fever >100.4 F Last Admin: 04/26/18 10:06 Dose: 650 mg Aspirin (Aspirin Chewable) 81 mg PO DAILY [facility] Last Admin: 04/27/18 13:09 Dose: Not Given Clopidogrel Bisulfate (Plavix) 75 mg PO DAILY [facility] Last Admin: 04/25/18 09:06 Dose: 75 mg Ferrous Sulfate (Feosol Liq) 300 mg PO TID [facility] Last Admin: 04/27/18 17:00 Dose: 300 mg Fluconazole (Diflucan Iv 200 Mg/100 Ml Ns) 100 mls @ 100 mls/hr IVPB Q24H [facility]; Protocol Last Admin: 04/27/18 18:10 Dose: 100 mls/hr Linezolid (Zyvox 600mg/300ml D5w) 600 mg in 300 mls @ 200 mls/hr IVPB Q12H [facility]; Protocol Last Admin: 04/28/18 05:15 Dose: 200 mls/hr Dextrose (Dextrose 5% In Water 1000 Ml) 1,000 mls @ 60 mls/hr IV .[id number] [facility] Last Admin: 04/28/18 05:39 Dose: Not Given Piperacillin Sod/Tazobactam (Sod 3.375 gm/ Sodium Chloride) 100 mls @ 200 mls/hr IVPB Q8H [facility]; Protocol Last Admin: 04/27/18 23:57 Dose: 200 mls/hr Insulin Aspart (Novolog) 0 unit SC Q6H [facility]; Protocol Last Admin: 04/28/18 05:14 Dose: Not Given Levothyroxine Sodium (Synthroid) 100 mcg IVP DAILY [facility] Last Admin: 04/27/18 10:13 Dose: 100 mcg Multivitamins (Hexavitamin) 1 tab PO DAILY [facility] Last Admin: 04/27/18 10:14 Dose: 1 tab Pantoprazole Sodium (Protonix Inj) 40 mg IVP Q12H [facility] Last Admin: 04/28/18 01:50 Dose: 40 mg Rosuvastatin Calcium (Crestor) 5 mg PO HS [facility] Last Admin: 04/24/18 22:00 Dose: 5 mg Sucralfate (Carafate Oral Susp) 1 gm PO TID [facility] Last Admin: 04/27/18 17:00 Dose: 1 gm Vitamin A (Vitamin A & D Oint Ud Foilpak) 0.5 ea TOP Q4 PRN PRN Reason: Dry mouth Last Admin: 04/27/18 17:00 Dose: 0.5 ea - Labs Labs: 04/28/18 05:56 04/28/18 05:56 PT 11.6 SECONDS (9.7-12.2) 04/25/18 06:25 INR 1.1 04/25/18 06:25 APTT 48 SECONDS (21-34) H D 04/26/18 05:48 - Additional Findings Additional findings: - Constitutional Appears: Non-toxic, Chronically Ill - Head Exam Head Exam: ATRAUMATIC, NORMOCEPHALIC - Eye Exam Eye Exam: absent: Conjunctival injection, Scleral icterus Additional comments: keeps eyes closed, not resisting external lid opening, no spontaneous eye movements or blinking observed - ENT Exam intubated - Neck Exam Neck Exam: Thyromegaly. absent: Lymphadenopathy - Respiratory Exam intubated and mechanically ventilated, mild ronchi heard in all bond but otherwise clear to auscultation - Cardiovascular Exam Cardiovascular Exam: REGULAR RHYTHM, RRR, +S1, +S2. absent: Bradycardia, Tachycardia, Irregular Rhythm, JVD, +S4 - GI/Abdominal Exam GI & Abdominal Exam: Soft, Normal Bowel Sounds. absent: Firm, Rigid - Extremities Exam Extremities Exam: absent: Pedal Edema Additional comments: wearing SCDs and weight-offloading boots bilaterally - Neurological Exam off sedation but remains mostly unresponsive, mild grimacing with sternal rub only, no spontaneous movements appreciated GCS 6 (E1 V1t M4) - Psychiatric Exam unable to assess as unresponsive off sedation - Skin Skin Exam: Dry, Intact, Normal Color, Warm Assessment and Plan - Assessment and Plan (Free Text) Assessment: This is a 67 yo [place] F with PMH of HTN, HLD, anxiety, CVA with residual L sided weakness, COPD, and CAD s/p stenting who presented in respiratory distress, now undergoing evaluation for possible thyroid and/or pancreatic CA. Endocrinology was consulted for the multinodular thyroid gland. Hospital course complicated by respiratory distress requiring re-intubation, now with NSTEMI, worsening renal function, and worsening/additional strokes. Prognosis is grim. Currently DNR, possible DNI and terminal extubation pending final family determination. Plan: 1) Multinodular thyroid disease/hypothyroidism 2) Metastatic disease, unknown primary, likely thyroid and/or pancreatic 3) Respiratory distress requiring intubation 4) NSTEMI 5) DEVIN 6) Evolution of prior stroke vs new acute stroke -TSH within normal limits, T4 low -continue with levothyroxine 100mcg IVP -24 hr BG range 129-169, 140 this AM, has not required coverage -Given worsening disease states overall. 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 Pending final determination for possible terminal extubation as per ICU staff Patient seen and examined, to be discussed with attending, Dr. Erazo. Further recs as per attending.
[2018-04-28] MEDS ORDERED: Potassium Chloride 20 mEq/15 ml LIQ UD PO ONE (08:00)
--- NOTE | 2018-04-28 08:03 | CP.CCUPN ---
<Armin Hunter M - Last Filed: 04/28/18 10:09> CCU Subjective - Physician Review Subjective (Free Text): Critical care progress note for Dr. Colon. Patient seen and examined at bedside. No overnight events reported. Patient remains intubated. Patient continues to minimally arousable to suction. Unable to obtain ROS due to intubation. Over weekend heparin was held due to decreasing platelets and dark black stools. Platlets continue to drop now to 20s. 04/28/18 09:58 CCU Objective - Vital Signs / Intake & Output Vital Signs (Last 4 hours): Vital Signs Pulse Resp BP Pulse Ox 04/28/18 07:00 83 18 100 04/28/18 06:33 82 17 126/74 100 04/28/18 05:32 87 19 124/75 100 04/28/18 04:32 86 19 130/80 100 Intake and Output (Last 8hrs): Intake & Output 04/27/18 04/28/18 04/28/18 22:59 06:59 14:59 Intake Total 930 1040 20 Output Total 525 250 Balance 405 790 20 Weight 87 lb 14.4 oz Intake: Intake, IV Amount 800 790 Left Forearm 180 790 Left Wrist 620 Tube Feeding 80 100 20 Other 50 150 Output: Urine 525 250 Straight 400 250 Urine, Voided 125 Other: # Bowel Movements 1 1 - Physical Exam Head: Positive for: Atraumatic, Normocephalic Conjunctiva: Positive for: Normal Mouth: Positive for: Moist Mucous Membranes Neck: Positive for: Other (mass R side) Respiratory/Chest: Positive for: Decreased Breath Sounds Cardiovascular: Positive for: Normal S1, S2 Abdomen: Positive for: Normal Bowel Sounds Upper Extremity: Positive for: Other (limited movement left upper extremity) Lower Extremity: Positive for: Edema Neurological: Positive for: Other (intubated) Skin: Positive for: Warm, Normal Color Psychiatric: Positive for: Alert, Oriented x 3 - Medications Active Medications: Active Medications Generic Name Dose Route Start Last Admin Trade Name Freq PRN Reason Stop Dose Admin Acetaminophen 650 mg 04/23/18 11:35 04/26/18 10:06 Tylenol 650mg/20.3ml Solution Ud PO 650 mg Q4H PRN Administration Temperature Fever >100.4 F Aspirin 81 mg 04/23/18 10:00 04/27/18 13:09 Aspirin Chewable PO Not Given DAILY [facility] Clopidogrel Bisulfate 75 mg 04/23/18 10:00 04/25/18 09:06 Plavix PO 75 mg DAILY [facility] Administration Ferrous Sulfate 300 mg 04/19/18 19:00 04/27/18 17:00 Feosol Liq PO 300 mg TID RODRIGO Administration Fluconazole 100 mls @ 100 mls/hr 04/14/18 18:30 04/27/18 18:10 Diflucan Iv 200 Mg/100 Ml Ns IVPB 100 mls/hr Q24H RODRIGO Administration Protocol Linezolid 600 mg in 300 mls @ 200 mls/hr 04/24/18 18:00 04/28/18 05:15 Zyvox 600mg/300ml D5w IVPB 200 mls/hr Q12H RODRIGO Administration Protocol Dextrose 1,000 mls @ 60 mls/hr 04/24/18 19:15 04/28/18 05:39 Dextrose 5% In Water 1000 Ml IV Not Given .[id number] [facility] Piperacillin Sod/Tazobactam 100 mls @ 200 mls/hr 04/26/18 16:00 04/27/18 23:57 Sod 3.375 gm/ Sodium Chloride IVPB 200 mls/hr Q8H [facility] Administration Protocol Potassium Chloride 20 meq in 100 mls @ 50 mls/hr 04/28/18 08:00 Potassium Chloride 20 Meq/100 Ml IVPB 04/30/18 09:59 Q2D [facility] Insulin Aspart 0 unit 04/12/18 18:00 04/28/18 05:14 Novolog SC Not Given Q6H [facility] Protocol Levothyroxine Sodium 100 mcg 04/22/18 10:00 04/27/18 10:13 Synthroid IVP 100 mcg DAILY [facility] Administration Multivitamins 1 tab 04/18/18 10:00 04/27/18 10:14 Hexavitamin PO 1 tab DAILY [facility] Administration Pantoprazole Sodium 40 mg 04/23/18 14:45 04/28/18 01:50 Protonix Inj IVP 40 mg Q12H [facility] Administration Potassium Chloride 40 meq 04/28/18 08:00 Potassium Chloride Oral Soln PO 04/28/18 08:01 ONCE ONE Rosuvastatin Calcium 5 mg 04/10/18 22:00 04/24/18 22:00 Crestor PO 5 mg HS RODRIGO Administration Sucralfate 1 gm 04/24/18 10:00 04/27/18 17:00 Carafate Oral Susp PO 1 gm TID RODRIGO Administration Vitamin A 0.5 ea 04/10/18 14:21 04/27/18 17:00 Vitamin A & D Oint Ud Foilpak TOP 0.5 ea Q4 PRN Administration Dry mouth - Patient Studies Lab Studies: Microbiology Studies 04/22/18 14:30 Blood Culture - Final Blood NO GROWTH AFTER 5 DAYS Gram Stain - Final TEST NOT PERFORMED 04/22/18 14:00 Blood Culture - Final Blood NO GROWTH AFTER 5 DAYS Gram Stain - Final TEST NOT PERFORMED Lab Studies 04/28/18 04/28/18 04/28/18 Range/Units 05:56 05:56 05:04 WBC 12.4 H (4.8-10.8) K/uL RBC 2.33 L (3.80-5.20) Mil/uL Hgb 7.4 L (11.0-16.0) g/dL Hct 22.3 L (34.0-47.0) % MCV 95.8 D (81.0-99.0) fL MCH 31.7 H (27.0-31.0) pg MCHC 33.1 (33.0-37.0) g/dL RDW 15.8 H (11.5-14.5) % Plt Count 13 L* D (130-400) K/uL MPV 10.0 (7.2-11.7) fL Neut % (Auto) 88.5 H (50.0-75.0) % Lymph % (Auto) 4.9 L (20.0-40.0) % [place] % (Auto) 3.6 (0.0-10.0) % Eos % (Auto) 2.4 (0.0-4.0) % Baso % (Auto) 0.6 (0.0-2.0) % Neut # (Auto) 11.0 H (1.8-7.0) K/uL Lymph # (Auto) 0.6 L (1.0-4.3) K/uL [place] # (Auto) 0.4 (0.0-0.8) K/uL Eos # (Auto) 0.3 (0.0-0.7) K/uL Baso # (Auto) 0.1 (0.0-0.2) K/uL Neutrophils % (Manual) (50-75) % Band Neutrophils % (0-2) % Lymphocytes % (Manual) (20-40) % Monocytes % (Manual) (0-10) % Eosinophils % (Manual) (0-4) % Nucleated RBC % (0-0) % Platelet Estimate (NORMAL) Hypochromasia (manual) Poikilocytosis (manual Anisocytosis (manual) Microcytosis (manual) Target Cells Puncture Site pCO2 (35-45) mm/Hg pO2 (80-100) mm/Hg HCO3 (21-28) mmol/L ABG pH (7.35-7.45) ABG Total CO2 (22-28) mmol/L ABG O2 Saturation (95-98) % ABG Base Excess (-2.0-3.0) mmol/L ABG Hemoglobin (11.7-17.4) g/dL ABG Carboxyhemoglobin (0.5-1.5) % POC ABG HHb (Measured) (0.0-5.0) % ABG Methemoglobin (0.0-3.0) % Caesar Test A-a O2 Difference mm/Hg Respiratory Index Hgb O2 Saturation (95.0-98.0) % Vent Mode Mechanical Rate FiO2 % Tidal Volume PEEP Sodium 133 (132-148) mmol/L Potassium 3.0 L (3.6-5.2) mmol/L Chloride 107 (98-107) mmol/L Carbon Dioxide 22 (22-30) mmol/L Anion Gap 8 L (10-20) BUN 27 H (7-17) mg/dL Creatinine 0.8 (0.7-1.2) mg/dL Est GFR ( Amer) > 60 Est GFR (Non-Af Amer) > 60 POC Glucose (mg/dL) 146 H (65-110) mg/dL Random Glucose 140 H (65-105) mg/dL Calcium 8.2 L (8.6-10.4) mg/dl Phosphorus 2.7 (2.5-4.5) mg/dL Magnesium 1.7 (1.6-2.3) mg/dL Total Bilirubin 0.7 (0.2-1.3) mg/dL AST 204 H (14-36) U/L ALT 512 H D (9-52) U/L Alkaline Phosphatase 197 H D (38-126) U/L Total Creatine Kinase (30-135) U/L CK-MB (Mass) (0.0-3.38) ng/mL Troponin I (0.00-0.120) ng/mL Total Protein 4.1 L (6.3-8.3) g/dL Albumin 1.9 L (3.5-5.0) g/dL Globulin 2.3 (2.2-3.9) gm/dL Albumin/Globulin Ratio 0.8 L (1.0-2.1) C. difficile Ag & Toxin (NEGATIVE) 04/27/18 04/27/18 04/27/18 Range/Units 23:34 17:30 11:23 WBC (4.8-10.8) K/uL RBC (3.80-5.20) Mil/uL Hgb (11.0-16.0) g/dL Hct (34.0-47.0) % MCV (81.0-99.0) fL MCH (27.0-31.0) pg MCHC (33.0-37.0) g/dL RDW (11.5-14.5) % Plt Count (130-400) K/uL MPV (7.2-11.7) fL Neut % (Auto) (50.0-75.0) % Lymph % (Auto) (20.0-40.0) % [place] % (Auto) (0.0-10.0) % Eos % (Auto) (0.0-4.0) % Baso % (Auto) (0.0-2.0) % Neut # (Auto) (1.8-7.0) K/uL Lymph # (Auto) (1.0-4.3) K/uL [place] # (Auto) (0.0-0.8) K/uL Eos # (Auto) (0.0-0.7) K/uL Baso # (Auto) (0.0-0.2) K/uL Neutrophils % (Manual) (50-75) % Band Neutrophils % (0-2) % Lymphocytes % (Manual) (20-40) % Monocytes % (Manual) (0-10) % Eosinophils % (Manual) (0-4) % Nucleated RBC % (0-0) % Platelet Estimate (NORMAL) Hypochromasia (manual) Poikilocytosis (manual Anisocytosis (manual) Microcytosis (manual) Target Cells Puncture Site pCO2 (35-45) mm/Hg pO2 (80-100) mm/Hg HCO3 (21-28) mmol/L ABG pH (7.35-7.45) ABG Total CO2 (22-28) mmol/L ABG O2 Saturation (95-98) % ABG Base Excess (-2.0-3.0) mmol/L ABG Hemoglobin (11.7-17.4) g/dL ABG Carboxyhemoglobin (0.5-1.5) % POC ABG HHb (Measured) (0.0-5.0) % ABG Methemoglobin (0.0-3.0) % Caesar Test A-a O2 Difference mm/Hg Respiratory Index Hgb O2 Saturation (95.0-98.0) % Vent Mode Mechanical Rate FiO2 % Tidal Volume PEEP Sodium (132-148) mmol/L Potassium (3.6-5.2) mmol/L Chloride (98-107) mmol/L Carbon Dioxide (22-30) mmol/L Anion Gap (10-20) BUN (7-17) mg/dL Creatinine (0.7-1.2) mg/dL Est GFR ( Amer) Est GFR (Non-Af Amer) POC Glucose (mg/dL) 160 H 169 H 136 H (65-110) mg/dL Random Glucose (65-105) mg/dL Calcium (8.6-10.4) mg/dl Phosphorus (2.5-4.5) mg/dL Magnesium (1.6-2.3) mg/dL Total Bilirubin (0.2-1.3) mg/dL AST (14-36) U/L ALT (9-52) U/L Alkaline Phosphatase (38-126) U/L Total Creatine Kinase (30-135) U/L CK-MB (Mass) (0.0-3.38) ng/mL Troponin I (0.00-0.120) ng/mL Total Protein (6.3-8.3) g/dL Albumin (3.5-5.0) g/dL Globulin (2.2-3.9) gm/dL Albumin/Globulin Ratio (1.0-2.1) C. difficile Ag & Toxin (NEGATIVE) 04/27/18 04/27/18 04/27/18 Range/Units 06:45 05:32 05:32 WBC (4.8-10.8) K/uL RBC (3.80-5.20) Mil/uL Hgb (11.0-16.0) g/dL Hct (34.0-47.0) % MCV (81.0-99.0) fL MCH (27.0-31.0) pg MCHC (33.0-37.0) g/dL RDW (11.5-14.5) % Plt Count (130-400) K/uL MPV (7.2-11.7) fL Neut % (Auto) (50.0-75.0) % Lymph % (Auto) (20.0-40.0) % [place] % (Auto) (0.0-10.0) % Eos % (Auto) (0.0-4.0) % Baso % (Auto) (0.0-2.0) % Neut # (Auto) (1.8-7.0) K/uL Lymph # (Auto) (1.0-4.3) K/uL [place] # (Auto) (0.0-0.8) K/uL Eos # (Auto) (0.0-0.7) K/uL Baso # (Auto) (0.0-0.2) K/uL Neutrophils % (Manual) 83 H (50-75) % Band Neutrophils % 11 H* (0-2) % Lymphocytes % (Manual) 4 L (20-40) % Monocytes % (Manual) 1 (0-10) % Eosinophils % (Manual) 1 (0-4) % Nucleated RBC % 1 H (0-0) % Platelet Estimate Decreased L (NORMAL) Hypochromasia (manual) Slight Poikilocytosis (manual Slight Anisocytosis (manual) Slight Microcytosis (manual) Slight Target Cells Slight Puncture Site Rb pCO2 29 L (35-45) mm/Hg pO2 98 (80-100) mm/Hg HCO3 23.8 (21-28) mmol/L ABG pH 7.48 H (7.35-7.45) ABG Total CO2 22.5 (22-28) mmol/L ABG O2 Saturation 98.9 H (95-98) % ABG Base Excess -1.5 (-2.0-3.0) mmol/L ABG Hemoglobin 8.2 L (11.7-17.4) g/dL ABG Carboxyhemoglobin 1.6 H (0.5-1.5) % POC ABG HHb (Measured) 1.1 (0.0-5.0) % ABG Methemoglobin 0.7 (0.0-3.0) % Caesar Test Na A-a O2 Difference 151.0 mm/Hg Respiratory Index 1.5 Hgb O2 Saturation 96.6 (95.0-98.0) % Vent Mode Prvc Mechanical Rate 14 FiO2 40.0 % Tidal Volume 400 PEEP 5 Sodium 139 (132-148) mmol/L Potassium 3.7 (3.6-5.2) mmol/L Chloride 114 H (98-107) mmol/L Carbon Dioxide 24 (22-30) mmol/L Anion Gap 5 L (10-20) BUN 29 H (7-17) mg/dL Creatinine 0.8 (0.7-1.2) mg/dL Est GFR ( Amer) > 60 Est GFR (Non-Af Amer) > 60 POC Glucose (mg/dL) (65-110) mg/dL Random Glucose 127 H (65-105) mg/dL Calcium 8.0 L (8.6-10.4) mg/dl Phosphorus 3.0 (2.5-4.5) mg/dL Magnesium 1.7 (1.6-2.3) mg/dL Total Bilirubin 0.9 (0.2-1.3) mg/dL AST 221 H (14-36) U/L ALT 649 H (9-52) U/L Alkaline Phosphatase 148 H (38-126) U/L Total Creatine Kinase 104 (30-135) U/L CK-MB (Mass) 1.73 (0.0-3.38) ng/mL Troponin I 2.6400 H* (0.00-0.120) ng/mL Total Protein 4.5 L (6.3-8.3) g/dL Albumin 2.0 L (3.5-5.0) g/dL Globulin 2.4 (2.2-3.9) gm/dL Albumin/Globulin Ratio 0.8 L (1.0-2.1) C. difficile Ag & Toxin (NEGATIVE) 04/26/18 Range/Units 19:47 WBC (4.8-10.8) K/uL RBC (3.80-5.20) Mil/uL Hgb (11.0-16.0) g/dL Hct (34.0-47.0) % MCV (81.0-99.0) fL MCH (27.0-31.0) pg MCHC (33.0-37.0) g/dL RDW (11.5-14.5) % Plt Count (130-400) K/uL MPV (7.2-11.7) fL Neut % (Auto) (50.0-75.0) % Lymph % (Auto) (20.0-40.0) % [place] % (Auto) (0.0-10.0) % Eos % (Auto) (0.0-4.0) % Baso % (Auto) (0.0-2.0) % Neut # (Auto) (1.8-7.0) K/uL Lymph # (Auto) (1.0-4.3) K/uL [place] # (Auto) (0.0-0.8) K/uL Eos # (Auto) (0.0-0.7) K/uL Baso # (Auto) (0.0-0.2) K/uL Neutrophils % (Manual) (50-75) % Band Neutrophils % (0-2) % Lymphocytes % (Manual) (20-40) % Monocytes % (Manual) (0-10) % Eosinophils % (Manual) (0-4) % Nucleated RBC % (0-0) % Platelet Estimate (NORMAL) Hypochromasia (manual) Poikilocytosis (manual Anisocytosis (manual) Microcytosis (manual) Target Cells Puncture Site pCO2 (35-45) mm/Hg pO2 (80-100) mm/Hg HCO3 (21-28) mmol/L ABG pH (7.35-7.45) ABG Total CO2 (22-28) mmol/L ABG O2 Saturation (95-98) % ABG Base Excess (-2.0-3.0) mmol/L ABG Hemoglobin (11.7-17.4) g/dL ABG Carboxyhemoglobin (0.5-1.5) % POC ABG HHb (Measured) (0.0-5.0) % ABG Methemoglobin (0.0-3.0) % Caesar Test A-a O2 Difference mm/Hg Respiratory Index Hgb O2 Saturation (95.0-98.0) % Vent Mode Mechanical Rate FiO2 % Tidal Volume PEEP Sodium (132-148) mmol/L Potassium (3.6-5.2) mmol/L Chloride (98-107) mmol/L Carbon Dioxide (22-30) mmol/L Anion Gap (10-20) BUN (7-17) mg/dL Creatinine (0.7-1.2) mg/dL Est GFR ( Amer) Est GFR (Non-Af Amer) POC Glucose (mg/dL) (65-110) mg/dL Random Glucose (65-105) mg/dL Calcium (8.6-10.4) mg/dl Phosphorus (2.5-4.5) mg/dL Magnesium (1.6-2.3) mg/dL Total Bilirubin (0.2-1.3) mg/dL AST (14-36) U/L ALT (9-52) U/L Alkaline Phosphatase (38-126) U/L Total Creatine Kinase (30-135) U/L CK-MB (Mass) (0.0-3.38) ng/mL Troponin I (0.00-0.120) ng/mL Total Protein (6.3-8.3) g/dL Albumin (3.5-5.0) g/dL Globulin (2.2-3.9) gm/dL Albumin/Globulin Ratio (1.0-2.1) C. difficile Ag & Toxin Negative (NEGATIVE) Laboratory Results - last 24 hr 04/26/18 04/27/18 04/27/18 19:47 05:32 05:32 WBC RBC Hgb Hct MCV MCH MCHC RDW Plt Count MPV Neut % (Auto) Lymph % (Auto) [place] % (Auto) Eos % (Auto) Baso % (Auto) Neut # (Auto) Lymph # (Auto) [place] # (Auto) Eos # (Auto) Baso # (Auto) Neutrophils % (Manual) 83 H Band Neutrophils % 11 H* Lymphocytes % (Manual) 4 L Monocytes % (Manual) 1 Eosinophils % (Manual) 1 Nucleated RBC % 1 H Platelet Estimate Decreased L Hypochromasia (manual) Slight Poikilocytosis (manual Slight Anisocytosis (manual) Slight Microcytosis (manual) Slight Target Cells Slight Puncture Site pCO2 pO2 HCO3 ABG pH ABG Total CO2 ABG O2 Saturation ABG Base Excess ABG Hemoglobin ABG Carboxyhemoglobin POC ABG HHb (Measured) ABG Methemoglobin Caesar Test A-a O2 Difference Respiratory Index Hgb O2 Saturation Vent Mode Mechanical Rate FiO2 Tidal Volume PEEP Sodium 139 Potassium 3.7 Chloride 114 H Carbon Dioxide 24 Anion Gap 5 L BUN 29 H Creatinine 0.8 Est GFR ( Amer) > 60 Est GFR (Non-Af Amer) > 60 POC Glucose (mg/dL) Random Glucose 127 H Calcium 8.0 L Phosphorus 3.0 Magnesium 1.7 Total Bilirubin 0.9 AST 221 H ALT 649 H Alkaline Phosphatase 148 H Total Creatine Kinase 104 CK-MB (Mass) 1.73 Troponin I 2.6400 H* Total Protein 4.5 L Albumin 2.0 L Globulin 2.4 Albumin/Globulin Ratio 0.8 L C. difficile Ag & Toxin Negative 04/27/18 04/27/18 04/27/18 06:45 11:23 17:30 WBC RBC Hgb Hct MCV MCH MCHC RDW Plt Count MPV Neut % (Auto) Lymph % (Auto) [place] % (Auto) Eos % (Auto) Baso % (Auto) Neut # (Auto) Lymph # (Auto) [place] # (Auto) Eos # (Auto) Baso # (Auto) Neutrophils % (Manual) Band Neutrophils % Lymphocytes % (Manual) Monocytes % (Manual) Eosinophils % (Manual) Nucleated RBC % Platelet Estimate Hypochromasia (manual) Poikilocytosis (manual Anisocytosis (manual) Microcytosis (manual) Target Cells Puncture Site Rb pCO2 29 L pO2 98 HCO3 23.8 ABG pH 7.48 H ABG Total CO2 22.5 ABG O2 Saturation 98.9 H ABG Base Excess -1.5 ABG Hemoglobin 8.2 L ABG Carboxyhemoglobin 1.6 H POC ABG HHb (Measured) 1.1 ABG Methemoglobin 0.7 Caesar Test Na A-a O2 Difference 151.0 Respiratory Index 1.5 Hgb O2 Saturation 96.6 Vent Mode Prvc Mechanical Rate 14 FiO2 40.0 Tidal Volume 400 PEEP 5 Sodium Potassium Chloride Carbon Dioxide Anion Gap BUN Creatinine Est GFR ( Amer) Est GFR (Non-Af Amer) POC Glucose (mg/dL) 136 H 169 H Random Glucose Calcium Phosphorus Magnesium Total Bilirubin AST ALT Alkaline Phosphatase Total Creatine Kinase CK-MB (Mass) Troponin I Total Protein Albumin Globulin Albumin/Globulin Ratio C. difficile Ag & Toxin 04/27/18 04/28/18 04/28/18 23:34 05:04 05:56 WBC 12.4 H RBC 2.33 L Hgb 7.4 L Hct 22.3 L MCV 95.8 D MCH 31.7 H MCHC 33.1 RDW 15.8 H Plt Count 13 L* D MPV 10.0 Neut % (Auto) 88.5 H Lymph % (Auto) 4.9 L [place] % (Auto) 3.6 Eos % (Auto) 2.4 Baso % (Auto) 0.6 Neut # (Auto) 11.0 H Lymph # (Auto) 0.6 L [place] # (Auto) 0.4 Eos # (Auto) 0.3 Baso # (Auto) 0.1 Neutrophils % (Manual) Band Neutrophils % Lymphocytes % (Manual) Monocytes % (Manual) Eosinophils % (Manual) Nucleated RBC % Platelet Estimate Hypochromasia (manual) Poikilocytosis (manual Anisocytosis (manual) Microcytosis (manual) Target Cells Puncture Site pCO2 pO2 HCO3 ABG pH ABG Total CO2 ABG O2 Saturation ABG Base Excess ABG Hemoglobin ABG Carboxyhemoglobin POC ABG HHb (Measured) ABG Methemoglobin Caesar Test A-a O2 Difference Respiratory Index Hgb O2 Saturation Vent Mode Mechanical Rate FiO2 Tidal Volume PEEP Sodium Potassium Chloride Carbon Dioxide Anion Gap BUN Creatinine Est GFR ( Amer) Est GFR (Non-Af Amer) POC Glucose (mg/dL) 160 H 146 H Random Glucose Calcium Phosphorus Magnesium Total Bilirubin AST ALT Alkaline Phosphatase Total Creatine Kinase CK-MB (Mass) Troponin I Total Protein Albumin Globulin Albumin/Globulin Ratio C. difficile Ag & Toxin 04/28/18 05:56 WBC RBC Hgb Hct MCV MCH MCHC RDW Plt Count MPV Neut % (Auto) Lymph % (Auto) [place] % (Auto) Eos % (Auto) Baso % (Auto) Neut # (Auto) Lymph # (Auto) [place] # (Auto) Eos # (Auto) Baso # (Auto) Neutrophils % (Manual) Band Neutrophils % Lymphocytes % (Manual) Monocytes % (Manual) Eosinophils % (Manual) Nucleated RBC % Platelet Estimate Hypochromasia (manual) Poikilocytosis (manual Anisocytosis (manual) Microcytosis (manual) Target Cells Puncture Site pCO2 pO2 HCO3 ABG pH ABG Total CO2 ABG O2 Saturation ABG Base Excess ABG Hemoglobin ABG Carboxyhemoglobin POC ABG HHb (Measured) ABG Methemoglobin Caesar Test A-a O2 Difference Respiratory Index Hgb O2 Saturation Vent Mode Mechanical Rate FiO2 Tidal Volume PEEP Sodium 133 Potassium 3.0 L Chloride 107 Carbon Dioxide 22 Anion Gap 8 L BUN 27 H Creatinine 0.8 Est GFR ( Amer) > 60 Est GFR (Non-Af Amer) > 60 POC Glucose (mg/dL) Random Glucose 140 H Calcium 8.2 L Phosphorus 2.7 Magnesium 1.7 Total Bilirubin 0.7 AST 204 H ALT 512 H D Alkaline Phosphatase 197 H D Total Creatine Kinase CK-MB (Mass) Troponin I Total Protein 4.1 L Albumin 1.9 L Globulin 2.3 Albumin/Globulin Ratio 0.8 L C. difficile Ag & Toxin Radiology Impressions: Radiology Impressions Chest X-Ray 04/27/18 07:00 IMPRESSION: No active disease. Head CT 04/27/18 10:04 IMPRESSION: 1. Large right [employer] territory infarction involving the right cerebellar hemisphere with associated edema and mass effect on the right midbrain, ade with 10 mm posterior fossa midline shift from right to left. 2. Multifocal anterior and posterior circulation subacute infarctions in both cerebellar hemispheres, right posterior occipital lobe, left parieto-occipital watershed territory, left frontoparietal watershed territory and left paramedian corpus callosum, the largest in the right cerebellar hemisphere. 3. Mild chronic microangiopathic changes and mild age-related global parenchymal volume loss. Lacunar infarctions in centrum semiovale, right anterior limb of internal capsule, left basal ganglia, left thalamus and right external capsule. Critical findings were discussed with Dr. Armin Hunter in ICU on 04/27/2018 at 11:45 a.m. Fingerstick Blood Sugar Results: 169 Review of Systems - Review of Systems Systems not reviewed;Unavailable: Intubated Critical Care Progress Note - Ventilator Checklist Head of Bed 30 Degrees: Yes Daily Sedation Vacation: Yes Daily Assessment of Readiness to Wean: Yes Daily Spontaneous Breathing Trial: Yes PUD Prophalyxis: Yes DVT Prophylaxis: Yes - Vent Settings MODE:: PCV TIDAL VOLUME:: 14 RESP RATE:: 450 FIO2:: 40 PEEP:: 5 - Extremities/Vascular Does the Patient have a Central Venous Catheter?: No Does the Patient need a Central Venous Catheter?: No Does the Patient have a Walsh Catheter?: No Does the Patient need a Walsh Catheter?: No - Prophylaxis GI Prophylaxis GI: PPI - Prophylaxis DVT Prophylaxis DVT: Not Indicated Assessment/Plan - Assessment and Plan (Free Text) Assessment: 67 year old female with PMhx of HTN, anxiety, 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 Pt transferred to ICU for respiratory distress/ elevated troponins, intubated 04/22, currently weaning. Currently on contact due to VRDE in urine. DEVIN resolved, acute liver failure resolving. CT 04/27 multiple subacute infarcts w/ midline shift. Possible trach/peg? Platlets downtrending now 20s. Zyvox D/C'ed due to possible side effect Possible DNI still pending family meeting. Currently DNR. Plan: Neuro - HOB 30 degrees - Intubated - CPAP trials - CT head 04/27: multiple subacute infacts, midline shift - Will f/u neuro recs - Possible terminal extubation tomorrow Cardio - Platlets 13, hold all anticoagulation - per cardio: medical management - BP stable Pulm - ABG 7.48/29/98/23.8 - Ventilator settings AC TV 350, PEEP 5 mm Hg, rate of 14, FIO2 of 50 - Now on CPAP trials Endo - Hx of hypothyroidism - C/w Levothyroxine 100 mg IVP Heme - Hgb dropped to 7.4 - drop from 8s, will continue to monitor - will consider transfusing - platlets @ 13 - holding all anticoagulation - likely 2/2 to Linezolid drug rxn - linezolid on hold - WBC elevated downtrending - continue to monitor GI - peg tube on hold until patient stable - no further rectal bleeding since weekend - NG tube @ 20 - Protonix 40 mg q12h - AST/ ALT downtrending Nephrology - BUN/Cr WNL, DEVIN resolved - replenish electrolytes as necessary ID - Fluconazole for yeast in urine - Urine culture positive E. faecalis - Per ID, Dr. Land Linezolid 600 Q12 PPx: - DVT: SCDS - GI: Protonix 40 mg IV Q12 <Jeffrey Colon - Last Filed: 04/28/18 18:16> CCU Subjective - Physician Review Critical Care Time Spent (in minutes): 40 CCU Objective - Vital Signs / Intake & Output Vital Signs (Last 4 hours): Vital Signs Pulse Resp BP Pulse Ox 04/28/18 18:00 100 H 20 100 04/28/18 17:32 105 H 22 139/87 100 04/28/18 17:00 103 H 21 100 04/28/18 16:32 101 H 19 128/73 100 04/28/18 16:22 113 H 27 H 150/91 H 100 04/28/18 16:00 107 H 21 100 04/28/18 15:32 104 H 22 143/89 04/28/18 15:00 111 H 26 H 100 04/28/18 14:32 95 H 19 134/79 100 Intake and Output (Last 8hrs): Intake & Output 04/28/18 04/28/18 04/28/18 06:59 14:59 22:59 Intake Total 1040 300 Output Total 250 85 Balance 790 215 Weight 87 lb 14.4 oz Intake: Intake, IV Amount 790 200 Left Forearm 790 200 Tube Feeding 100 100 Other 150 Output: Urine 250 85 Straight 250 85 Other: # Bowel Movements 1 1 - Medications Active Medications: Active Medications Generic Name Dose Route Start Last Admin Trade Name Freq PRN Reason Stop Dose Admin Acetaminophen 650 mg 04/23/18 11:35 04/26/18 10:06 Tylenol 650mg/20.3ml Solution Ud PO 650 mg Q4H PRN Administration Temperature Fever >100.4 F Aspirin 81 mg 04/23/18 10:00 04/27/18 13:09 Aspirin Chewable PO Not Given DAILY RODRIGO Clopidogrel Bisulfate 75 mg 04/23/18 10:00 04/25/18 09:06 Plavix PO 75 mg DAILY RODRIGO Administration Ferrous Sulfate 300 mg 04/19/18 19:00 04/28/18 10:35 Feosol Liq PO 300 mg TID RODRIGO Administration Fluconazole 100 mls @ 100 mls/hr 04/14/18 18:30 04/27/18 18:10 Diflucan Iv 200 Mg/100 Ml Ns IVPB 100 mls/hr Q24H RODRIGO Administration Protocol Linezolid 600 mg in 300 mls @ 200 mls/hr 04/24/18 18:00 04/28/18 05:15 Zyvox 600mg/300ml D5w IVPB 200 mls/hr Q12H RODRIGO Administration Protocol Dextrose 1,000 mls @ 60 mls/hr 04/24/18 19:15 04/28/18 05:39 Dextrose 5% In Water 1000 Ml IV Not Given .[id number] RODRIGO Piperacillin Sod/Tazobactam 100 mls @ 200 mls/hr 04/26/18 16:00 04/28/18 09:50 Sod 3.375 gm/ Sodium Chloride IVPB 200 mls/hr Q8H RODRIGO Administration Protocol Insulin Aspart 0 unit 04/12/18 18:00 04/28/18 15:41 Novolog SC Not Given Q6H [facility] Protocol Levothyroxine Sodium 100 mcg 04/22/18 10:00 04/28/18 09:59 Synthroid IVP 100 mcg DAILY RODRIGO Administration Multivitamins/Vitamin C 5 ml 04/28/18 10:15 04/28/18 10:36 Multi-Delyn Liquid PO 5 ml DAILY RODRIGO Administration Pantoprazole Sodium 40 mg 04/23/18 14:45 04/28/18 01:50 Protonix Inj IVP 40 mg Q12H RODRIGO Administration Rosuvastatin Calcium 5 mg 04/10/18 22:00 04/24/18 22:00 Crestor PO 5 mg HS RODRIGO Administration Sucralfate 1 gm 04/24/18 10:00 04/28/18 10:35 Carafate Oral Susp PO 1 gm TID RODRIGO Administration Vitamin A 0.5 ea 04/10/18 14:21 04/27/18 17:00 Vitamin A & D Oint Ud Foilpak TOP 0.5 ea Q4 PRN Administration Dry mouth - Patient Studies Lab Studies: Microbiology Studies 04/22/18 14:30 Blood Culture - Final Blood NO GROWTH AFTER 5 DAYS Gram Stain - Final TEST NOT PERFORMED 04/22/18 14:00 Blood Culture - Final Blood NO GROWTH AFTER 5 DAYS Gram Stain - Final TEST NOT PERFORMED Lab Studies 04/28/18 04/28/18 04/28/18 Range/Units 05:56 05:56 05:04 WBC 12.4 H (4.8-10.8) K/uL RBC 2.33 L (3.80-5.20) Mil/uL Hgb 7.4 L (11.0-16.0) g/dL Hct 22.3 L (34.0-47.0) % MCV 95.8 D (81.0-99.0) fL MCH 31.7 H (27.0-31.0) pg MCHC 33.1 (33.0-37.0) g/dL RDW 15.8 H (11.5-14.5) % Plt Count 13 L* D (130-400) K/uL MPV 10.0 (7.2-11.7) fL Neut % (Auto) 88.5 H (50.0-75.0) % Lymph % (Auto) 4.9 L (20.0-40.0) % [place] % (Auto) 3.6 (0.0-10.0) % Eos % (Auto) 2.4 (0.0-4.0) % Baso % (Auto) 0.6 (0.0-2.0) % Neut # (Auto) 11.0 H (1.8-7.0) K/uL Lymph # (Auto) 0.6 L (1.0-4.3) K/uL [place] # (Auto) 0.4 (0.0-0.8) K/uL Eos # (Auto) 0.3 (0.0-0.7) K/uL Baso # (Auto) 0.1 (0.0-0.2) K/uL Neutrophils % (Manual) 68 (50-75) % Band Neutrophils % 19 H* (0-2) % Lymphocytes % (Manual) 2 L (20-40) % Monocytes % (Manual) 5 (0-10) % Eosinophils % (Manual) 5 H (0-4) % Myelocytes % 1 H (0-0) % Platelet Estimate Markedly decreased L (NORMAL) Hypochromasia (manual) Slight Poikilocytosis (manual Slight Anisocytosis (manual) Slight Microcytosis (manual) Slight Macrocytosis (manual) Slight Target Cells Slight Sodium 133 (132-148) mmol/L Potassium 3.0 L (3.6-5.2) mmol/L Chloride 107 (98-107) mmol/L Carbon Dioxide 22 (22-30) mmol/L Anion Gap 8 L (10-20) BUN 27 H (7-17) mg/dL Creatinine 0.8 (0.7-1.2) mg/dL Est GFR ( Amer) > 60 Est GFR (Non-Af Amer) > 60 POC Glucose (mg/dL) 146 H (65-110) mg/dL Random Glucose 140 H (65-105) mg/dL Calcium 8.2 L (8.6-10.4) mg/dl Phosphorus 2.7 (2.5-4.5) mg/dL Magnesium 1.7 (1.6-2.3) mg/dL Total Bilirubin 0.7 (0.2-1.3) mg/dL AST 204 H (14-36) U/L ALT 512 H D (9-52) U/L Alkaline Phosphatase 197 H D (38-126) U/L Total Protein 4.1 L (6.3-8.3) g/dL Albumin 1.9 L (3.5-5.0) g/dL Globulin 2.3 (2.2-3.9) gm/dL Albumin/Globulin Ratio 0.8 L (1.0-2.1) 04/27/18 Range/Units 23:34 WBC (4.8-10.8) K/uL RBC (3.80-5.20) Mil/uL Hgb (11.0-16.0) g/dL Hct (34.0-47.0) % MCV (81.0-99.0) fL MCH (27.0-31.0) pg MCHC (33.0-37.0) g/dL RDW (11.5-14.5) % Plt Count (130-400) K/uL MPV (7.2-11.7) fL Neut % (Auto) (50.0-75.0) % Lymph % (Auto) (20.0-40.0) % [place] % (Auto) (0.0-10.0) % Eos % (Auto) (0.0-4.0) % Baso % (Auto) (0.0-2.0) % Neut # (Auto) (1.8-7.0) K/uL Lymph # (Auto) (1.0-4.3) K/uL [place] # (Auto) (0.0-0.8) K/uL Eos # (Auto) (0.0-0.7) K/uL Baso # (Auto) (0.0-0.2) K/uL Neutrophils % (Manual) (50-75) % Band Neutrophils % (0-2) % Lymphocytes % (Manual) (20-40) % Monocytes % (Manual) (0-10) % Eosinophils % (Manual) (0-4) % Myelocytes % (0-0) % Platelet Estimate (NORMAL) Hypochromasia (manual) Poikilocytosis (manual Anisocytosis (manual) Microcytosis (manual) Macrocytosis (manual) Target Cells Sodium (132-148) mmol/L Potassium (3.6-5.2) mmol/L Chloride (98-107) mmol/L Carbon Dioxide (22-30) mmol/L Anion Gap (10-20) BUN (7-17) mg/dL Creatinine (0.7-1.2) mg/dL Est GFR ( Amer) Est GFR (Non-Af Amer) POC Glucose (mg/dL) 160 H (65-110) mg/dL Random Glucose (65-105) mg/dL Calcium (8.6-10.4) mg/dl Phosphorus (2.5-4.5) mg/dL Magnesium (1.6-2.3) mg/dL Total Bilirubin (0.2-1.3) mg/dL AST (14-36) U/L ALT (9-52) U/L Alkaline Phosphatase (38-126) U/L Total Protein (6.3-8.3) g/dL Albumin (3.5-5.0) g/dL Globulin (2.2-3.9) gm/dL Albumin/Globulin Ratio (1.0-2.1) Laboratory Results - last 24 hr 04/27/18 04/28/18 04/28/18 23:34 05:04 05:56 WBC 12.4 H RBC 2.33 L Hgb 7.4 L Hct 22.3 L MCV 95.8 D MCH 31.7 H MCHC 33.1 RDW 15.8 H Plt Count 13 L* D MPV 10.0 Neut % (Auto) 88.5 H Lymph % (Auto) 4.9 L [place] % (Auto) 3.6 Eos % (Auto) 2.4 Baso % (Auto) 0.6 Neut # (Auto) 11.0 H Lymph # (Auto) 0.6 L [place] # (Auto) 0.4 Eos # (Auto) 0.3 Baso # (Auto) 0.1 Neutrophils % (Manual) 68 Band Neutrophils % 19 H* Lymphocytes % (Manual) 2 L Monocytes % (Manual) 5 Eosinophils % (Manual) 5 H Myelocytes % 1 H Platelet Estimate Markedly decreased L Hypochromasia (manual) Slight Poikilocytosis (manual Slight Anisocytosis (manual) Slight Microcytosis (manual) Slight Macrocytosis (manual) Slight Target Cells Slight Sodium Potassium Chloride Carbon Dioxide Anion Gap BUN Creatinine Est GFR ( Amer) Est GFR (Non-Af Amer) POC Glucose (mg/dL) 160 H 146 H Random Glucose Calcium Phosphorus Magnesium Total Bilirubin AST ALT Alkaline Phosphatase Total Protein Albumin Globulin Albumin/Globulin Ratio 04/28/18 05:56 WBC RBC Hgb Hct MCV MCH MCHC RDW Plt Count MPV Neut % (Auto) Lymph % (Auto) [place] % (Auto) Eos % (Auto) Baso % (Auto) Neut # (Auto) Lymph # (Auto) [place] # (Auto) Eos # (Auto) Baso # (Auto) Neutrophils % (Manual) Band Neutrophils % Lymphocytes % (Manual) Monocytes % (Manual) Eosinophils % (Manual) Myelocytes % Platelet Estimate Hypochromasia (manual) Poikilocytosis (manual Anisocytosis (manual) Microcytosis (manual) Macrocytosis (manual) Target Cells Sodium 133 Potassium 3.0 L Chloride 107 Carbon Dioxide 22 Anion Gap 8 L BUN 27 H Creatinine 0.8 Est GFR ( Amer) > 60 Est GFR (Non-Af Amer) > 60 POC Glucose (mg/dL) Random Glucose 140 H Calcium 8.2 L Phosphorus 2.7 Magnesium 1.7 Total Bilirubin 0.7 AST 204 H ALT 512 H D Alkaline Phosphatase 197 H D Total Protein 4.1 L Albumin 1.9 L Globulin 2.3 Albumin/Globulin Ratio 0.8 L Assessment/Plan (1) Acute respiratory failure Current Visit: Yes Status: Acute (2) NSTEMI (non-ST elevated myocardial infarction) Current Visit: Yes Status: Acute (3) CVA (cerebral vascular accident) Current Visit: Yes Status: Acute (4) Metastatic cancer Current Visit: Yes Status: Acute (5) COPD exacerbation Current Visit: No Status: Acute Attending/Attestation - Attestation I have personally seen and examined this patient.: Yes I have fully participated in the care of the patient.: Yes I have reviewed all pertinent clinical information: Yes Notes (Text): 04/28/18 18:16 Patient seen and examined in the intensive care unit. Case discussed with housestaff in the morning rounds. Case discussed with family Possible terminal extubation tomorrow No change in mental status On ventilatory support
[2018-04-28 08:58] LABS: BANDS 19 % (0-2); EOSINOPHIL 5 % (0-4); LYMPHOCYTE 2 % (20-40); MONOCYTE 5 % (0-10); MYELOCYTE 1 % (0-0); NEUTROPHIL 68 % (50-75); PLATELET ESTIMATE MARKEDLY DECREASED (NORMAL); TOTAL CELLS COUNTED 100
[2018-04-28 08:59] LABS: ANISOCYTOSIS SLIGHT; HYPOCHROMIC SLIGHT; MICROCYTOSIS SLIGHT; POIKILOCYTOSIS SLIGHT
[2018-04-28 09:00] LABS: TARGET CELLS SLIGHT
[2018-04-28] MEDS: Piperacillin/Tazobact 3.375 GM in Sodium Chloride 100 ML IVPB SCH ×2 (09:50→17:56)
[2018-04-28] MEDS: Levothyroxine 100 mcg (0.1 mg) Inj IVP SCH (09:59)
--- NOTE | 2018-04-28 10:33 | CP.PCM.PN ---
Subjective - Date & Time of Evaluation Date of Evaluation: 04/28/18 Time of Evaluation: 10:00 - Subjective Subjective: chart review still intubated , no sedation remained unresponsive labs worsening noted patient seen chronically ill intubated unresponsive not in the room discussion with nurse in charge for update labs worsening no clinical improvement Objective - Vital Signs/Intake and Output Vital Signs (last 24 hours): Temp Pulse Resp BP Pulse Ox 98.7 F 83 18 126/74 100 04/28/18 04:00 04/28/18 07:00 04/28/18 07:00 04/28/18 06:33 04/28/18 07:00 Intake and Output: 04/28/18 04/28/18 06:59 18:59 Intake Total 1360 20 Output Total 775 Balance 585 20 - Medications Medications: Current Medications Acetaminophen (Tylenol 650mg/20.3ml Solution Ud) 650 mg PO Q4H PRN PRN Reason: Temperature Fever >100.4 F Last Admin: 04/26/18 10:06 Dose: 650 mg Aspirin (Aspirin Chewable) 81 mg PO DAILY [facility] Last Admin: 04/27/18 13:09 Dose: Not Given Clopidogrel Bisulfate (Plavix) 75 mg PO DAILY [facility] Last Admin: 04/25/18 09:06 Dose: 75 mg Ferrous Sulfate (Feosol Liq) 300 mg PO TID [facility] Last Admin: 04/27/18 17:00 Dose: 300 mg Fluconazole (Diflucan Iv 200 Mg/100 Ml Ns) 100 mls @ 100 mls/hr IVPB Q24H [facility]; Protocol Last Admin: 04/27/18 18:10 Dose: 100 mls/hr Linezolid (Zyvox 600mg/300ml D5w) 600 mg in 300 mls @ 200 mls/hr IVPB Q12H [facility]; Protocol Last Admin: 04/28/18 05:15 Dose: 200 mls/hr Dextrose (Dextrose 5% In Water 1000 Ml) 1,000 mls @ 60 mls/hr IV .[id number] [facility] Last Admin: 04/28/18 05:39 Dose: Not Given Piperacillin Sod/Tazobactam (Sod 3.375 gm/ Sodium Chloride) 100 mls @ 200 mls/hr IVPB Q8H [facility]; Protocol Last Admin: 04/28/18 09:50 Dose: 200 mls/hr Potassium Chloride (Potassium Chloride 20 Meq/100 Ml) 20 meq in 100 mls @ 50 mls/hr IVPB Q2H [facility] Stop: 04/28/18 12:29 Last Admin: 04/28/18 09:51 Dose: 50 mls/hr Insulin Aspart (Novolog) 0 unit SC Q6H [facility]; Protocol Last Admin: 04/28/18 05:14 Dose: Not Given Levothyroxine Sodium (Synthroid) 100 mcg IVP DAILY [facility] Last Admin: 04/28/18 09:59 Dose: 100 mcg Multivitamins/Vitamin C (Multi-Delyn Liquid) 5 ml PO DAILY [facility] Pantoprazole Sodium (Protonix Inj) 40 mg IVP Q12H [facility] Last Admin: 04/28/18 01:50 Dose: 40 mg Rosuvastatin Calcium (Crestor) 5 mg PO HS [facility] Last Admin: 04/24/18 22:00 Dose: 5 mg Sucralfate (Carafate Oral Susp) 1 gm PO TID [facility] Last Admin: 04/27/18 17:00 Dose: 1 gm Vitamin A (Vitamin A & D Oint Ud Foilpak) 0.5 ea TOP Q4 PRN PRN Reason: Dry mouth Last Admin: 04/27/18 17:00 Dose: 0.5 ea - Labs Labs: 04/28/18 05:56 04/28/18 05:56 PT 11.6 SECONDS (9.7-12.2) 04/25/18 06:25 INR 1.1 04/25/18 06:25 APTT 48 SECONDS (21-34) H D 04/26/18 05:48 - Constitutional Appears: Chronically Ill, Other (patient remined intubated no sedation and yet unresponsive, face and arms becoming edematous, ) Assessment and Plan - Assessment and Plan (Free Text) Assessment: Patient with worsening condition poor prognosis from multiple acute medical problems CVA on CVA CAD CHF Metastatic lesion Respiratory failure worsening anemia clinically worsening Further discussion with regarding condition of patient is waiting for her daughters to make decisions today
[2018-04-28] MEDS: Sucralfate 1 gm/10 ml Oral Susp UD PO SCH ×3 (10:35→18:55)
[2018-04-28] MEDS: Ferrous Sulfate 300 mg/5 mL Liq UD PO SCH ×3 (10:35→18:55)
[2018-04-28] MEDS: Multiple Vitamins Oral Solution PO SCH (10:36)
--- NOTE | 2018-04-28 15:09 | CP.PCM.PN ---
Subjective - Date & Time of Evaluation Date of Evaluation: 04/28/18 Time of Evaluation: 15:06 - Subjective Subjective: Patient is intubated, unresponsive to verbal/ tactile stimuli, with NGT in for feeding. The latest CT head showed new cerebral infarcts, one large CHIEF PSYCHOLOGIST producing like mass effect and midline shift. At this point patient's condition was seen as terminal. I discussed it today with Doctor Isaiah and Doctor Dale and we agreed that removal of life support and promotion of natural was the best course of care at this stage of disease. Objective - Vital Signs/Intake and Output Vital Signs (last 24 hours): Temp Pulse Resp BP Pulse Ox 96.7 F L 95 H 19 134/79 100 04/28/18 12:00 04/28/18 14:32 04/28/18 14:32 04/28/18 14:32 04/28/18 14:32 Intake and Output: 04/28/18 04/28/18 06:59 18:59 Intake Total 1360 300 Output Total 775 85 Balance 585 215 - Medications Medications: Current Medications Acetaminophen (Tylenol 650mg/20.3ml Solution Ud) 650 mg PO Q4H PRN PRN Reason: Temperature Fever >100.4 F Last Admin: 04/26/18 10:06 Dose: 650 mg Aspirin (Aspirin Chewable) 81 mg PO DAILY [facility] Last Admin: 04/27/18 13:09 Dose: Not Given Clopidogrel Bisulfate (Plavix) 75 mg PO DAILY [facility] Last Admin: 04/25/18 09:06 Dose: 75 mg Ferrous Sulfate (Feosol Liq) 300 mg PO TID [facility] Last Admin: 04/28/18 10:35 Dose: 300 mg Fluconazole (Diflucan Iv 200 Mg/100 Ml Ns) 100 mls @ 100 mls/hr IVPB Q24H [facility]; Protocol Last Admin: 04/27/18 18:10 Dose: 100 mls/hr Linezolid (Zyvox 600mg/300ml D5w) 600 mg in 300 mls @ 200 mls/hr IVPB Q12H [facility]; Protocol Last Admin: 04/28/18 05:15 Dose: 200 mls/hr Dextrose (Dextrose 5% In Water 1000 Ml) 1,000 mls @ 60 mls/hr IV .[id number] [facility] Last Admin: 04/28/18 05:39 Dose: Not Given Piperacillin Sod/Tazobactam (Sod 3.375 gm/ Sodium Chloride) 100 mls @ 200 mls/hr IVPB Q8H [facility]; Protocol Last Admin: 04/28/18 09:50 Dose: 200 mls/hr Insulin Aspart (Novolog) 0 unit SC Q6H [facility]; Protocol Last Admin: 04/28/18 05:14 Dose: Not Given Levothyroxine Sodium (Synthroid) 100 mcg IVP DAILY [facility] Last Admin: 04/28/18 09:59 Dose: 100 mcg Multivitamins/Vitamin C (Multi-Delyn Liquid) 5 ml PO DAILY [facility] Last Admin: 04/28/18 10:36 Dose: 5 ml Pantoprazole Sodium (Protonix Inj) 40 mg IVP Q12H [facility] Last Admin: 04/28/18 01:50 Dose: 40 mg Rosuvastatin Calcium (Crestor) 5 mg PO HS [facility] Last Admin: 04/24/18 22:00 Dose: 5 mg Sucralfate (Carafate Oral Susp) 1 gm PO TID [facility] Last Admin: 04/28/18 10:35 Dose: 1 gm Vitamin A (Vitamin A & D Oint Ud Foilpak) 0.5 ea TOP Q4 PRN PRN Reason: Dry mouth Last Admin: 04/27/18 17:00 Dose: 0.5 ea - Labs Labs: 04/28/18 05:56 04/28/18 05:56 PT 11.6 SECONDS (9.7-12.2) 04/25/18 06:25 INR 1.1 04/25/18 06:25 APTT 48 SECONDS (21-34) H D 04/26/18 05:48 - Constitutional Appears: In Acute Distress - Head Exam Head Exam: ATRAUMATIC, NORMAL INSPECTION, NORMOCEPHALIC - Eye Exam Eye Exam: Normal appearance - ENT Exam Additional comments: NGT, EET - Neck Exam Neck Exam: Normal Inspection - Respiratory Exam Additional comments: On MV assistance - Cardiovascular Exam Cardiovascular Exam: Tachycardia - GI/Abdominal Exam GI & Abdominal Exam: Hypoactive Bowel Sounds - Rectal Exam Rectal Exam: Deferred - Exam Additional comments: Walsh cath - Extremities Exam Extremities Exam: Normal Inspection, Pedal Edema - Back Exam Back Exam: NORMAL INSPECTION - Neurological Exam Neurological Exam: Motor Sensory Deficit Neuro motor strength exam: Left Upper Extremity: 0, Right Upper Extremity: 0, Left Lower Extremity: 0, Right Lower Extremity: 0 - Psychiatric Exam Psychiatric exam: Flat Affect - Skin Skin Exam: Pallor Assessment and Plan - Assessment and Plan (Free Text) Assessment: Progress note Goals of care discussed with patient's at bed side. I updated him with new developments regarding patient's clinical condition. admitted the ICU Doctor talked to him about this last night and he understood that condition . The , Mr. Perales, admitted his sorrow and cried , but said he was ready. he stated not being able any longer to look at his suffering and had decided to let her go peacefully. he asked me about the process of life support removal. he admitted feeling " beetter', knowing that his will not suffer any more. We agreed to start process tomorrow at 10 am. I suggested and his family spend as much as possible , time with patient, this evening and tomorrow morning. I offered Pastoral support and he accepted. Consult to Pastoral care in. I shared this with Doctor Colon, Doctor Hunter and ICU team. Impression * Metastatic disease * AMS 2nd to cerebral infarcts * Condition is seen as terminal with not expected recovery * who is surrogate decision maker came to peace with himself and decided on removing life support tomorrow at 10 am Suggestion * Continue usual care until tomorrow * Provide support for and family * Pastoral care for spiritual support * Agree with terminal extubation for tomorrow morning Palliative care will remain on board to offer support for the family Advance care planing 30 min
--- NOTE | 2018-04-28 17:32 | PN ---
DATE: 04/28/2018 ENDO FOLLOWUP NOTE LOCATION: In ICU, room 10. SUBJECTIVE: This is a 67-year-old female with recent acute respiratory failure and also recent acute CVA with recent multiple infarctions as noted thereof. Her glycemic levels are fluctuating, but improved. LABORATORY DATA: The latest chemistries showed BUN of 27, sodium 133, potassium 3, chloride 107, CO2 of 22, glucose 114, and creatinine 0.8. Her glucose levels have ranged from 146 to 160 mg/dL. Her thyroid studies have improved and the latest T4 is 4.32 with the TSH of 0.59. ASSESSMENT AND PLAN: She remains clinically and biochemically euthyroid at this time. We will continue the levothyroxine given as 100 mcg intravenous push once daily as ordered. We will obtain serial chemistries and supplement accordingly as needed. We will follow this. Akiko Erazo MD
[2018-04-28] MEDS: Fluconazole IV 200mg/100 ml NS 100 ML IVPB SCH (18:55)
[2018-04-28] MEDS ORDERED: HYDROmorphone 1 mg/ml ISec IVP STA (20:30)
[2018-04-29] MEDS: Piperacillin/Tazobact 3.375 GM in Sodium Chloride 100 ML IVPB SCH ×2 (00:47→08:16)
[2018-04-29] MEDS: (Novolog) Insulin Aspart, Recombinant 100 u/ml 10 ml vial SC SCH ×3 (00:53→19:53)
--- NOTE | 2018-04-29 07:31 | CP.PCM.PN ---
Subjective - Date & Time of Evaluation Date of Evaluation: 04/29/18 Time of Evaluation: 07:00 - Subjective Subjective: Endocrine Service Progress Note for Dr. Erazo Service Herbert Rogers DO, IM PGY-3 As per charting from ICU and as per ICU staff, family has elected to terminally extubate patient today at 10am. Spouse observed at bedside comforting patient. Will hold off on examination of patient today. Will continue to follow if family changes their mind and wishes to continue active medical management, otherwise will sign off. Reviewed and discussed with attending, Dr. Erazo. Objective - Vital Signs/Intake and Output Vital Signs (last 24 hours): Temp Pulse Resp BP Pulse Ox 97.0 F L 100 H 20 139/87 100 04/28/18 16:00 04/28/18 18:00 04/28/18 18:00 04/28/18 17:32 04/28/18 18:00 - Medications Medications: Current Medications Acetaminophen (Tylenol 650mg/20.3ml Solution Ud) 650 mg PO Q4H PRN PRN Reason: Temperature Fever >100.4 F Last Admin: 04/26/18 10:06 Dose: 650 mg Aspirin (Aspirin Chewable) 81 mg PO DAILY [facility] Last Admin: 04/27/18 13:09 Dose: Not Given Clopidogrel Bisulfate (Plavix) 75 mg PO DAILY [facility] Last Admin: 04/25/18 09:06 Dose: 75 mg Ferrous Sulfate (Feosol Liq) 300 mg PO TID [facility] Last Admin: 04/28/18 18:55 Dose: 300 mg Fluconazole (Diflucan Iv 200 Mg/100 Ml Ns) 100 mls @ 100 mls/hr IVPB Q24H [facility]; Protocol Last Admin: 04/28/18 18:55 Dose: 100 mls/hr Linezolid (Zyvox 600mg/300ml D5w) 600 mg in 300 mls @ 200 mls/hr IVPB Q12H [facility]; Protocol Last Admin: 04/28/18 05:15 Dose: 200 mls/hr Dextrose (Dextrose 5% In Water 1000 Ml) 1,000 mls @ 60 mls/hr IV .[id number] [facility] Last Admin: 04/29/18 07:18 Dose: 60 mls/hr Piperacillin Sod/Tazobactam (Sod 3.375 gm/ Sodium Chloride) 100 mls @ 200 mls/hr IVPB Q8H [facility]; Protocol Last Admin: 04/29/18 00:47 Dose: 200 mls/hr Insulin Aspart (Novolog) 0 unit SC Q6H [facility]; Protocol Last Admin: 04/29/18 00:53 Dose: Not Given Levothyroxine Sodium (Synthroid) 100 mcg IVP DAILY [facility] Last Admin: 04/28/18 09:59 Dose: 100 mcg Multivitamins/Vitamin C (Multi-Delyn Liquid) 5 ml PO DAILY [facility] Last Admin: 04/28/18 10:36 Dose: 5 ml Pantoprazole Sodium (Protonix Inj) 40 mg IVP Q12H [facility] Last Admin: 04/29/18 03:30 Dose: 40 mg Rosuvastatin Calcium (Crestor) 5 mg PO HS [facility] Last Admin: 04/24/18 22:00 Dose: 5 mg Sucralfate (Carafate Oral Susp) 1 gm PO TID [facility] Last Admin: 04/28/18 18:55 Dose: 1 gm Vitamin A (Vitamin A & D Oint Ud Foilpak) 0.5 ea TOP Q4 PRN PRN Reason: Dry mouth Last Admin: 04/27/18 17:00 Dose: 0.5 ea - Labs Labs: 04/28/18 05:56 04/28/18 05:56 PT 11.6 SECONDS (9.7-12.2) 04/25/18 06:25 INR 1.1 04/25/18 06:25 APTT 48 SECONDS (21-34) H D 04/26/18 05:48
[2018-04-29] MEDS: Sucralfate 1 gm/10 ml Oral Susp UD PO SCH (10:00)
[2018-04-29] MEDS ORDERED: Multiple Vitamins Oral Solution PO SCH (10:00)
[2018-04-29] MEDS: Ferrous Sulfate 300 mg/5 mL Liq UD PO SCH (10:00)
[2018-04-29] MEDS: Multiple Vitamins Oral Solution PO SCH (10:00)
[2018-04-29] MEDS: Levothyroxine 100 mcg (0.1 mg) Inj IVP SCH (10:00)
--- NOTE | 2018-04-29 10:45 | CP.PCM.PN ---
Subjective - Date & Time of Evaluation Date of Evaluation: 04/29/18 Time of Evaluation: 11:00 - Subjective Subjective: chart review notes of staff and Sister Field regarding family's decision to extubate patient seen becoming edematous remained ventilator dependedn non sedated but remained unresponsive family members at bedside further discussion with for extubation today Hospice to be notified as needed Objective - Vital Signs/Intake and Output Vital Signs (last 24 hours): Temp Pulse Resp BP Pulse Ox 98.2 F 83 16 114/62 100 04/29/18 08:00 04/29/18 08:55 04/29/18 08:55 04/29/18 08:55 04/29/18 08:55 Intake and Output: 04/29/18 04/29/18 06:59 18:59 Intake Total 860 180 Output Total 750 0 Balance 110 180 - Medications Medications: Current Medications Acetaminophen (Tylenol 650mg/20.3ml Solution Ud) 650 mg PO Q4H PRN PRN Reason: Temperature Fever >100.4 F Last Admin: 04/26/18 10:06 Dose: 650 mg Aspirin (Aspirin Chewable) 81 mg PO DAILY [facility] Last Admin: 04/27/18 13:09 Dose: Not Given Clopidogrel Bisulfate (Plavix) 75 mg PO DAILY [facility] Last Admin: 04/25/18 09:06 Dose: 75 mg Ferrous Sulfate (Feosol Liq) 300 mg PO TID [facility] Last Admin: 04/28/18 18:55 Dose: 300 mg Fluconazole (Diflucan Iv 200 Mg/100 Ml Ns) 100 mls @ 100 mls/hr IVPB Q24H [facility]; Protocol Last Admin: 04/28/18 18:55 Dose: 100 mls/hr Linezolid (Zyvox 600mg/300ml D5w) 600 mg in 300 mls @ 200 mls/hr IVPB Q12H [facility]; Protocol Last Admin: 04/28/18 05:15 Dose: 200 mls/hr Dextrose (Dextrose 5% In Water 1000 Ml) 1,000 mls @ 60 mls/hr IV .[id number] [facility] Last Admin: 04/29/18 07:18 Dose: 60 mls/hr Piperacillin Sod/Tazobactam (Sod 3.375 gm/ Sodium Chloride) 100 mls @ 200 mls/hr IVPB Q8H [facility]; Protocol Last Admin: 04/29/18 08:16 Dose: 200 mls/hr Insulin Aspart (Novolog) 0 unit SC Q6H [facility]; Protocol Last Admin: 04/29/18 06:30 Dose: Not Given Levothyroxine Sodium (Synthroid) 100 mcg IVP DAILY [facility] Last Admin: 04/28/18 09:59 Dose: 100 mcg Multivitamins/Vitamin C (Multi-Delyn Liquid) 5 ml PO DAILY [facility] Last Admin: 04/28/18 10:36 Dose: 5 ml Pantoprazole Sodium (Protonix Inj) 40 mg IVP Q12H [facility] Last Admin: 04/29/18 03:30 Dose: 40 mg Rosuvastatin Calcium (Crestor) 5 mg PO HS [facility] Last Admin: 04/24/18 22:00 Dose: 5 mg Sucralfate (Carafate Oral Susp) 1 gm PO TID [facility] Last Admin: 04/28/18 18:55 Dose: 1 gm Vitamin A (Vitamin A & D Oint Ud Foilpak) 0.5 ea TOP Q4 PRN PRN Reason: Dry mouth Last Admin: 04/27/18 17:00 Dose: 0.5 ea - Labs Labs: 04/28/18 05:56 04/28/18 05:56 PT 11.6 SECONDS (9.7-12.2) 04/25/18 06:25 INR 1.1 04/25/18 06:25 APTT 48 SECONDS (21-34) H D 04/26/18 05:48 - Constitutional Appears: Chronically Ill (remained intubated no sedation but unresponsive to call and painful stimuli, with facial and upper arms edema, ) Assessment and Plan - Assessment and Plan (Free Text) Assessment: patient with multiple medical problems Patient with very poor prognosis, with failure to thrive worsening condition Family decided extubation hospice care as needed further support and discussion with family
--- NOTE | 2018-04-29 14:33 | CP.PCM.PCO ---
Physician Communication Note - Physician Communication Note Physician Communication Note: Patient was terminally extubated at approximately 2:10 PM on 04/29/2018
[2018-04-29] MEDS ORDERED: Morphine Sulfate 250 MG in Dextrose 5% In Water 240 ML IV PRN (15:00)
[2018-04-29 17:33] VITALS: TEMP 97.4
--- NOTE | 2018-04-29 18:56 | PN ---
DATE: 04/29/2018 ENDOCRINOLOGY FOLLOWUP NOTE LOCATION: In ICU, room 10. SUBJECTIVE: This is a 67-year-old female who is terminally ill at this time with recent acute respiratory failure and remained unresponsive and now the family has decided to do terminal extubation with supportive care at this time. Her glycemic levels have remained near optimal. LABORATORY DATA: Her chemistry showed a BUN of 29, sodium 139, potassium 3.7, chloride 114, CO2 of 24, glucose 127, creatinine 0.8. Her thyroid study showed a T4 of 4.32 with a TSH of 0.59. ASSESSMENT AND PLAN: So, at this time she has to receive levothyroxine given as a 100 mcg daily by IV push as ordered. We will concur with the present family decision and we will sign off from the Endocrine ____ at this time. Akiko Erazo MD
[2018-04-29] MEDS: Fluconazole IV 200mg/100 ml NS 100 ML IVPB SCH (19:52)
[2018-04-30] MEDS: (Novolog) Insulin Aspart, Recombinant 100 u/ml 10 ml vial SC SCH
--- NOTE | 2018-04-30 11:41 | CP.PCM.PN ---
Subjective - Date & Time of Evaluation Date of Evaluation: 04/30/18 Time of Evaluation: 11:00 - Subjective Subjective: chart review patient extubated yesterday notes- patient on morphine drip patient seen extubated unresponsive breathing on own Discussion with nurse, BP noted going down Hospice notified further discussion with and brother Objective - Vital Signs/Intake and Output Vital Signs (last 24 hours): Temp Pulse Resp BP Pulse Ox 97.4 F L 127 H 15 106/54 L 87 L 04/29/18 16:00 04/30/18 08:32 04/30/18 08:32 04/30/18 08:32 04/30/18 08:00 Intake and Output: 04/30/18 04/30/18 06:59 18:59 Intake Total 770 70 Output Total 325 Balance 445 70 - Medications Medications: Current Medications Acetaminophen (Tylenol 650mg/20.3ml Solution Ud) 650 mg PO Q4H PRN PRN Reason: Temperature Fever >100.4 F Last Admin: 04/26/18 10:06 Dose: 650 mg Aspirin (Aspirin Chewable) 81 mg PO DAILY [facility] Last Admin: 04/27/18 13:09 Dose: Not Given Clopidogrel Bisulfate (Plavix) 75 mg PO DAILY [facility] Last Admin: 04/25/18 09:06 Dose: 75 mg Ferrous Sulfate (Feosol Liq) 300 mg PO TID [facility] Last Admin: 04/29/18 10:00 Dose: Not Given Fluconazole (Diflucan Iv 200 Mg/100 Ml Ns) 100 mls @ 100 mls/hr IVPB Q24H [facility]; Protocol Last Admin: 04/29/18 19:52 Dose: Not Given Linezolid (Zyvox 600mg/300ml D5w) 600 mg in 300 mls @ 200 mls/hr IVPB Q12H [facility]; Protocol Last Admin: 04/28/18 05:15 Dose: 200 mls/hr Dextrose (Dextrose 5% In Water 1000 Ml) 1,000 mls @ 60 mls/hr IV .[id number] [facility] Last Admin: 04/29/18 23:16 Dose: 60 mls/hr Piperacillin Sod/Tazobactam (Sod 3.375 gm/ Sodium Chloride) 100 mls @ 200 mls/hr IVPB Q8H [facility]; Protocol Last Admin: 04/29/18 08:16 Dose: 200 mls/hr Morphine Sulfate 250 mg/ (Dextrose) 250 mls @ 1 mls/hr IV .Q24H PRN; Protocol PRN Reason: Pain, moderate (4-7) Last Titration: 04/29/18 17:00 Dose: 10 ml/hr, 10 mls/hr Insulin Aspart (Novolog) 0 unit SC Q6H [facility]; Protocol Last Admin: 04/30/18 00:00 Dose: Not Given Levothyroxine Sodium (Synthroid) 100 mcg IVP DAILY [facility] Last Admin: 04/29/18 10:00 Dose: Not Given Multivitamins/Vitamin C (Multi-Delyn Liquid) 5 ml PO DAILY [facility] Last Admin: 04/29/18 10:00 Dose: Not Given Pantoprazole Sodium (Protonix Inj) 40 mg IVP Q12H [facility] Last Admin: 04/29/18 03:30 Dose: 40 mg Rosuvastatin Calcium (Crestor) 5 mg PO HS [facility] Last Admin: 04/24/18 22:00 Dose: 5 mg Sucralfate (Carafate Oral Susp) 1 gm PO TID [facility] Last Admin: 04/29/18 10:00 Dose: Not Given Vitamin A (Vitamin A & D Oint Ud Foilpak) 0.5 ea TOP Q4 PRN PRN Reason: Dry mouth Last Admin: 04/27/18 17:00 Dose: 0.5 ea - Labs Labs: 04/28/18 05:56 04/28/18 05:56 PT 11.6 SECONDS (9.7-12.2) 04/25/18 06:25 INR 1.1 04/25/18 06:25 APTT 48 SECONDS (21-34) H D 04/26/18 05:48 - Constitutional Appears: Chronically Ill (unresponsive, extubated, breathing on own, facial swelling subsided, upper arms swelling less than yesterday ) - Head Exam Head Exam: ATRAUMATIC, NORMOCEPHALIC - Respiratory Exam Respiratory Exam: Decreased Breath Sounds - Cardiovascular Exam Cardiovascular Exam: REGULAR RHYTHM - GI/Abdominal Exam GI & Abdominal Exam: absent: Distended - Skin Skin Exam: Normal Color Assessment and Plan - Assessment and Plan (Free Text) Assessment: Patient who suffered acute medical problems, CVA CAD afib, CVA, resiratory distress, finding of metastatic lesion, with terminal condition with failure to thrive, extubated 2/27/19, on hospice care and brother aware of condition
[2018-04-30 11:50] VITALS: BP 70/44
[2018-04-30 12:08] VITALS: PULSE 118; RESP 17; O2SAT 97
--- NOTE | 2018-05-01 12:03 | CP.PCM.DIS ---
Provider - Provider Date of Admission: 04/09/18 20:41 Attending physician: Libia Brady MD Consults: 04/09/18 18:59 Stroke Team Consult Stat Comment: Consulting Provider: Neurohospitalist Consulting Physician: NEUROHOSP Neurohospitalist for Consult: Gato Loving Neurohospitalist for Consult: Amador Robles Reason for Consult: stroke 04/09/18 23:30 Physician Consult Routine Comment: Consulting Provider: Jeffrey Colon Consulting Physician: Jeffrey Colon Reason for Consult: your patient with abnormal lung findings 04/10/18 07:19 Neurology Consult Routine Comment: Consulting Provider: Andrew Castro Consulting Physician: Andrew Castro Reason for Consult: r/o stroke 04/10/18 14:19 Physician Consult Routine Comment: Consulting Provider: Ирина Ohara Consulting Physician: Ирина Ohara Reason for Consult: distal right clavicular fracture on xray 04/10/18 14:20 Cardiology Consult Routine Comment: Consulting Provider: Cristobal Eldridge Consulting Physician: Cristobal Eldridge Reason for Consult: hx of CAD, stent 04/10/18 18:23 Physician Consult Routine Comment: Consulting Provider: Eduardo Vogel Consulting Physician: Eduardo Vogel Reason for Consult: clavicular fracture right side 04/12/18 10:34 Endocrinology Consult Routine Comment: Enlarged multinodular thyroid gland Consulting Provider: Akiko Erazo Consulting Physician: Akiko Erazo Reason for Consult: Enlarged multinodular thyroid gland Hematology Oncology Consult Routine Comment: ? metastatic disease Consulting Provider: Tawana Reyez Consulting Physician: Tawana Reyez Reason for Consult: ? metastatic disease 04/13/18 15:13 Nephrology Consult Routine Comment: Consulting Provider: Jose Angel Adams Consulting Physician: Jose Angel Adams Reason for Consult: clovis 04/14/18 10:09 Physician Consult Routine Comment: Consulting Provider: Rangel Land Consulting Physician: Rangel Land Reason for Consult: fungal infection 04/14/18 10:46 Palliative Care Consult Routine Comment: Consulting Provider: Kathy Almaguer Physician Instructions: Reason For Exam: metastatic disease 04/14/18 12:51 Physician Consult Routine Comment: Consulting Provider: Diaz Kramer Consulting Physician: Diaz Kramer Reason for Consult: FNA for multinodular thyroid, R lobe predominent 04/16/18 10:53 Discharge Planning [Case Management Referral] Routine Comment: Physician Instructions: Reason For Exam: evaluate for paliative care Reason for Referral: Manager Roofing Eval 04/17/18 18:32 Physician Consult Routine Comment: Consulting Provider: Yaakov Alan Consulting Physician: Yaakov Alan Reason for Consult: anemia, metastaic lesion 04/19/18 11:17 Discharge Planning [Case Management Referral] Routine Comment: Physician Instructions: Reason For Exam: for subacute Rehab Reason for Referral: Manager Roofing Eval 04/22/18 06:42 Cardiology Consult Routine Comment: Please notify Dr. Thomas Consulting Provider: Palmira Thomas Consulting Physician: Palmira Thomas Reason for Consult: Cardiology coverage. I am out of town till May 01 04/22/18 12:15 Radiology Consult Routine Comment: Consulting Provider: Ayaan Cruz Consulting Physician: Ayaan Cruz Reason for Consult: Bone metastses unknown primary 04/22/18 18:27 Cardiology Consult Routine Comment: Consulting Provider: Janene Villarreal Consulting Physician: Janene Villarreal Reason for Consult: elevated trops 04/23/18 11:22 Discharge Planning [Case Management Referral] Routine Comment: Physician Instructions: Reason For Exam: Reason for Referral: Hospice Eval 04/24/18 09:50 Physician Consult Routine Comment: Consulting Provider: Rangel Land Consulting Physician: Rangel Land Reason for Consult: VRE UTI Additional Comments: 04/26/18 09:10 Wound Care [Nursing Referral for Wound Care] Routine Comment: right buttock 0.5X0.5, mepilex applied Physician Instructions: Reason For Exam: right buttock 04/28/18 15:36 Pastoral Care Referral Routine Comment: Physician Instructions: Reason For Exam: Spiritual support Time Spent in preparation of Discharge (in minutes): 30 Hospital Course - Lab Results Lab Results: Micro Results 04/28/18 12:16 Urine Random Urine Culture - Final No Growth (<1,000 CFU/ML) 04/22/18 14:30 Blood Blood Culture - Final NO GROWTH AFTER 5 DAYS 04/22/18 14:30 Blood Gram Stain - Final TEST NOT PERFORMED 04/22/18 14:00 Blood Blood Culture - Final NO GROWTH AFTER 5 DAYS 04/22/18 14:00 Blood Gram Stain - Final TEST NOT PERFORMED 04/22/18 15:36 Urine,Catheterized Urine Culture - Final Vancomycin Resistant E.faecium 04/22/18 15:36 Naris MRSA Culture (Admit) - Final MRSA NOT DETECTED 04/16/18 11:04 Naris MRSA Culture - Final MRSA NOT DETECTED 04/10/18 01:31 Blood-Venous Blood Culture - Final NO GROWTH AFTER 5 DAYS 04/10/18 01:31 Blood-Venous Gram Stain - Final TEST NOT PERFORMED 04/10/18 01:31 Blood-Venous Blood Culture - Final NO GROWTH AFTER 5 DAYS 04/10/18 01:31 Blood-Venous Gram Stain - Final TEST NOT PERFORMED 04/10/18 00:59 Trachasp Gram Stain - Final 04/10/18 00:59 Trachasp Sputum Culture - Final Yeast Species 04/10/18 00:59 Urine,Catheterized Urine Culture - Final Yeast Species 04/10/18 00:59 Nose MRSA Culture (Admit) - Final MRSA NOT DETECTED Most Recent Lab Values WBC 12.4 K/uL (4.8-10.8) H 04/28/18 05:56 RBC 2.33 Mil/uL (3.80-5.20) L 04/28/18 05:56 Hgb 7.4 g/dL (11.0-16.0) L 04/28/18 05:56 Hct 22.3 % (34.0-47.0) L 04/28/18 05:56 MCV 95.8 fL (81.0-99.0) D 04/28/18 05:56 MCH 31.7 pg (27.0-31.0) H 04/28/18 05:56 MCHC 33.1 g/dL (33.0-37.0) 04/28/18 05:56 RDW 15.8 % (11.5-14.5) H 04/28/18 05:56 Plt Count 13 K/uL (130-400) L* D 04/28/18 05:56 MPV 10.0 fL (7.2-11.7) 04/28/18 05:56 Neut % (Auto) 88.5 % (50.0-75.0) H 04/28/18 05:56 Lymph % (Auto) 4.9 % (20.0-40.0) L 04/28/18 05:56 [place] % (Auto) 3.6 % (0.0-10.0) 04/28/18 05:56 Eos % (Auto) 2.4 % (0.0-4.0) 04/28/18 05:56 Baso % (Auto) 0.6 % (0.0-2.0) 04/28/18 05:56 Neut # (Auto) 11.0 K/uL (1.8-7.0) H 04/28/18 05:56 Lymph # (Auto) 0.6 K/uL (1.0-4.3) L 04/28/18 05:56 [place] # (Auto) 0.4 K/uL (0.0-0.8) 04/28/18 05:56 Eos # (Auto) 0.3 K/uL (0.0-0.7) 04/28/18 05:56 Baso # (Auto) 0.1 K/uL (0.0-0.2) 04/28/18 05:56 Neutrophils % (Manual) 68 % (50-75) 04/28/18 05:56 Band Neutrophils % 19 % (0-2) H* 04/28/18 05:56 Lymphocytes % (Manual) 2 % (20-40) L 04/28/18 05:56 Reactive Lymphs % 1 % (0-0) H 04/13/18 06:11 Monocytes % (Manual) 5 % (0-10) 04/28/18 05:56 Eosinophils % (Manual) 5 % (0-4) H 04/28/18 05:56 Basophils % (Manual) 1 % (0-2) 04/09/18 19:06 Metamyelocytes % 1 % (0-0) H 04/26/18 05:48 Myelocytes % 1 % (0-0) H 04/28/18 05:56 Nucleated RBC % 1 % (0-0) H 04/27/18 05:32 Toxic Granulation Present 04/18/18 06:17 Platelet Estimate Markedly decreased (NORMAL) L 04/28/18 05:56 Large Platelets Present 04/26/18 14:12 Giant Platelets Present 04/20/18 07:27 RBC Morphology Normal 04/15/18 06:00 Polychromasia Slight 04/26/18 14:12 Hypochromasia (manual) Slight 04/28/18 05:56 Poikilocytosis (manual Slight 04/28/18 05:56 Anisocytosis (manual) Slight 04/28/18 05:56 Microcytosis (manual) Slight 04/28/18 05:56 Macrocytosis (manual) Slight 04/28/18 05:56 Target Cells Slight 04/28/18 05:56 [place] Cells Slight 04/20/18 07:27 Schistocytes Slight 04/26/18 05:48 PT 11.6 SECONDS (9.7-12.2) 04/25/18 06:25 INR 1.1 04/25/18 06:25 APTT 48 SECONDS (21-34) H D 04/26/18 05:48 Puncture Site Rb 04/27/18 06:45 pCO2 29 mm/Hg (35-45) L 04/27/18 06:45 pO2 98 mm/Hg (80-100) 04/27/18 06:45 HCO3 23.8 mmol/L (21-28) 04/27/18 06:45 ABG pH 7.48 (7.35-7.45) H 04/27/18 06:45 ABG Total CO2 22.5 mmol/L (22-28) 04/27/18 06:45 ABG O2 Saturation 98.9 % (95-98) H 04/27/18 06:45 ABG Base Excess -1.5 mmol/L (-2.0-3.0) 04/27/18 06:45 ABG Hemoglobin 8.2 g/dL (11.7-17.4) L 04/27/18 06:45 ABG Carboxyhemoglobin 1.6 % (0.5-1.5) H 04/27/18 06:45 POC ABG HHb (Measured) 1.1 % (0.0-5.0) 04/27/18 06:45 ABG Methemoglobin 0.7 % (0.0-3.0) 04/27/18 06:45 Caesar Test Na 04/27/18 06:45 ABG Potassium 3.5 mmol/L (3.6-5.2) L 04/23/18 14:00 A-a O2 Difference 151.0 mm/Hg 04/27/18 06:45 Respiratory Index 1.5 04/27/18 06:45 Hgb O2 Saturation 96.6 % (95.0-98.0) 04/27/18 06:45 Sodium 151.0 mmol/l (132-148) H 04/23/18 14:00 Chloride 126.0 mmol/L (98-107) H 04/23/18 14:00 Glucose 157 mg/dl (65-105) H 04/23/18 14:00 Lactate 1.7 mmol/L (0.7-2.1) 04/23/18 14:00 Vent Mode Prvc 04/27/18 06:45 Mechanical Rate 14 04/27/18 06:45 FiO2 40.0 % 04/27/18 06:45 Tidal Volume 400 04/27/18 06:45 PEEP 5 04/27/18 06:45 Pressure Support 15 04/23/18 14:00 CPAP 5 04/23/18 14:00 Sodium 133 mmol/L (132-148) 04/28/18 05:56 Potassium 3.0 mmol/L (3.6-5.2) L 04/28/18 05:56 Chloride 107 mmol/L (98-107) 04/28/18 05:56 Carbon Dioxide 22 mmol/L (22-30) 04/28/18 05:56 Anion Gap 8 (10-20) L 04/28/18 05:56 BUN 27 mg/dL (7-17) H 04/28/18 05:56 Creatinine 0.8 mg/dL (0.7-1.2) 04/28/18 05:56 Est GFR ( Amer) > 60 04/28/18 05:56 Est GFR (Non-Af Amer) > 60 04/28/18 05:56 POC Glucose (mg/dL) 146 mg/dL (65-110) H 04/28/18 05:04 Random Glucose 140 mg/dL (65-105) H 04/28/18 05:56 Hemoglobin A1c 5.4 % (4.2-6.5) 04/09/18 19:06 Lactic Acid 1.6 mmol/L (0.7-2.1) 04/10/18 01:27 Calcium 8.2 mg/dl (8.6-10.4) L 04/28/18 05:56 Phosphorus 2.7 mg/dL (2.5-4.5) 04/28/18 05:56 Magnesium 1.7 mg/dL (1.6-2.3) 04/28/18 05:56 Total Bilirubin 0.7 mg/dL (0.2-1.3) 04/28/18 05:56 GGT 64 U/L (8-78) 04/20/18 07:27 AST 204 U/L (14-36) H 04/28/18 05:56 ALT 512 U/L (9-52) H D 04/28/18 05:56 Alkaline Phosphatase 197 U/L (38-126) H D 04/28/18 05:56 Total Creatine Kinase 104 U/L (30-135) 04/27/18 05:32 CK-MB (Mass) 1.73 ng/mL (0.0-3.38) 04/27/18 05:32 Troponin I 2.6400 ng/mL (0.00-0.120) H* 04/27/18 05:32 NT-Pro-B Natriuret Pep 6150 pg/mL (0-900) H 04/10/18 06:11 Total Protein 4.1 g/dL (6.3-8.3) L 04/28/18 05:56 Albumin 1.9 g/dL (3.5-5.0) L 04/28/18 05:56 Globulin 2.3 gm/dL (2.2-3.9) 04/28/18 05:56 Albumin/Globulin Ratio 0.8 (1.0-2.1) L 04/28/18 05:56 Triglycerides 105 mg/dL (0-149) D 04/11/18 06:40 Cholesterol 219 mg/dL (0-199) H 04/11/18 06:40 LDL Cholesterol Direct 115 mg/dL (0-129) 04/11/18 06:40 HDL Cholesterol 80 mg/dL (30-70) H 04/11/18 06:40 Alpha Fetoprotein 2.8 ng/mL (0.0-7.5) 04/14/18 07:28 Carcinoembryonic Ag 2.0 ng/mL (0-3.0) 04/19/18 07:38 CA 19-9 Antigen > 5000 U/mL (0-37) H 04/19/18 07:38 CA 125 Antigen 2130 U/mL (0-35) H 04/14/18 07:28 Procalcitonin 0.35 NG/ML (0.19-0.49) 04/22/18 15:36 Free T4 0.49 ng/dL (0.78-2.19) L 04/17/18 06:19 Thyroxine (T4) 4.32 ug/dL (5.5-11.0) L 04/24/18 05:55 Thyroglobulin, Quant 0.1 ng/mL (2.8-40.9) L 04/13/18 06:09 TSH 3rd Generation 0.59 mIU/L (0.46-4.68) 04/24/18 05:55 Calcium (PTH Intact) 10.1 mg/dL (8.6-10.4) 04/14/18 07:28 PTH w/Ion &Tot Calcium 38 pg/mL (14-64) 04/14/18 07:28 PTH Related Protein 17 pg/mL (14-27) 04/14/18 07:28 Cortisol AM Sample 74.7 ug/dL (4.46-22.7) H 04/13/18 06:09 Arterial Blood Potassium 3.5 mmol/L (3.6-5.2) L 04/23/18 14:00 Urine Color Yellow (YELLOW) 04/22/18 15:56 Urine Clarity Hazy (Clear) 04/22/18 15:56 Urine pH 6.0 (5.0-8.0) 04/22/18 15:56 Ur Specific [place] 1.016 (1.003-1.030) 04/22/18 15:56 Urine Protein 1+ mg/dL (NEGATIVE) H 04/22/18 15:56 Urine Glucose (UA) Normal mg/dL (Normal) 04/22/18 15:56 Urine Ketones Negative mg/dL (NEGATIVE) 04/22/18 15:56 Urine Blood Small (NEGATIVE) 04/22/18 15:56 Urine Nitrate Negative (NEGATIVE) 04/22/18 15:56 Urine Bilirubin Negative (NEGATIVE) 04/22/18 15:56 Urine Urobilinogen 2.0 mg/dL (0.2-1.0) H 04/22/18 15:56 Ur Leukocyte Esterase Neg [place]/uL (Negative) 04/22/18 15:56 Urine WBC (Auto) 3 /hpf (0-5) 04/22/18 15:56 Urine RBC (Auto) 14 /hpf (0-3) H 04/22/18 15:56 Ur Squamous Epith Cells < 1 /hpf (0-5) 04/10/18 05:02 Urine Bacteria Few (<OCC) H 04/22/18 15:56 Hyaline Casts 0-2 /lpf (0-2) 04/22/18 15:56 Urine Yeast (Budding) Mod /hpf (NEGATIVE) H 04/10/18 05:02 Stool Occult Blood Positive (NEGATIVE) H 04/23/18 14:29 Random Vancomycin 20.7 ug/mL 04/23/18 08:50 Urine Opiates Screen Negative (NEGATIVE) 04/09/18 20:02 Urine Methadone Screen Negative (NEGATIVE) 04/09/18 20:02 Ur Barbiturates Screen Negative (NEGATIVE) 04/09/18 20:02 Ur Phencyclidine Scrn Negative (NEGATIVE) 04/09/18 20:02 Ur Amphetamines Screen Negative (NEGATIVE) 04/09/18 20:02 U Benzodiazepines Scrn Negative (NEGATIVE) 04/09/18 20:02 U Oth Cocaine Metabols Negative (NEGATIVE) 04/09/18 20:02 U Cannabinoids Screen Negative (NEGATIVE) 04/09/18 20:02 Thyroperoxidase Ab <1 IU/mL (<9) 04/13/18 06:09 Thyroglobulin Antibody >1000 IU/mL (< OR = 1) H 04/13/18 06:09 C. difficile Ag & Toxin Negative (NEGATIVE) 04/26/18 19:47 HIV 1&2 Antibody Screen Negative (NEGATIVE) 04/15/18 06:00 Blood Type O POSITIVE 04/27/18 06:31 Antibody Screen Negative 04/27/18 06:31 - Hospital Course Hospital Course: admitted for respiratory distress, had CVA on CVA, poor swallow, weakness right side, atrial Fib, anemia,found to have metastatic lesions to the bone, primary being investigated , thyroid mass, not biopsied due to poor condition, tumor markers elevated suspicion on pancreas, patiet continue to deteriorated, had another episode of respiratory distress and intubated, became lethargic, failed to thrive, placed on hospice, family decide on extubation and hospice care patient - Date & Time of H&P Date of H&P: 04/30/18 Discharge Exam - Head Exam Head Exam: ATRAUMATIC (patient is extubated unrespinsive, with spontaneous breathing, edematoiue UE , no bleeding ), NORMOCEPHALIC Discharge Plan - Follow Up Plan Condition: GOOD Disposition: HOSPICE - MEDICAL FACILITY
== END 2018-04-30 12:11 | disposition hospice, inpatient (51) | DRG 64 ==
LOC: C.ER 18:54 → C.9E 20:41 → C.9I 21:44 → C.6T 04-16 11:09 → C.9I 04-22 14:44
PROVIDERS: ADMIT Internal Medicine; ATTEND Internal Medicine
PROC: 0BH17EZ Insertion of Endotracheal Airway into Trachea, Via Natural or Artificial Opening (ICD-10-PCS; principal; 2018-04-09)
PROC: 5A1945Z Respiratory Ventilation, 24-96 Consecutive Hours (ICD-10-PCS; 2018-04-09)
PROC: 5A09557 Assistance with Respiratory Ventilation, Greater than 96 Consecutive Hours, Continuous Positive Airway Pressure (ICD-10-PCS; 2018-04-10)
PROC: 5A1955Z Respiratory Ventilation, Greater than 96 Consecutive Hours (ICD-10-PCS; 2018-04-22)
DX: I63.432 Cerebral infarction due to embolism of left posterior cerebral artery (principal); J96.01 Acute respiratory failure with hypoxia; I50.33 Acute on chronic diastolic (congestive) heart failure; A41.9 Sepsis, unspecified organism; I21.4 Non-ST elevation (NSTEMI) myocardial infarction; J18.9 Pneumonia, unspecified organism; J96.02 Acute respiratory failure with hypercapnia; J44.1 Chronic obstructive pulmonary disease with (acute) exacerbation; N39.0 Urinary tract infection, site not specified; E46 Unspecified protein-calorie malnutrition; E87.0 Hyperosmolality and hypernatremia; N17.9 Acute kidney failure, unspecified; R64 Cachexia; E87.3 Alkalosis; C79.51 Secondary malignant neoplasm of bone; C25.9 Malignant neoplasm of pancreas, unspecified; M84.411A Pathological fracture, right shoulder, initial encounter for fracture; G81.91 Hemiplegia, unspecified affecting right dominant side; I11.0 Hypertensive heart disease with heart failure; E87.6 Hypokalemia; I25.10 Atherosclerotic heart disease of native coronary artery without angina pectoris; I48.91 Unspecified atrial fibrillation; Z95.5 Presence of coronary angioplasty implant and graft; E04.2 Nontoxic multinodular goiter; E78.5 Hyperlipidemia, unspecified; E06.3 Autoimmune thyroiditis; E83.41 Hypermagnesemia; E83.52 Hypercalcemia; E86.0 Dehydration; F41.9 Anxiety disorder, unspecified; I25.2 Old myocardial infarction; I48.0 Paroxysmal atrial fibrillation; I69.320 Aphasia following cerebral infarction; D64.9 Anemia, unspecified; Z51.5 Encounter for palliative care; R62.7 Adult failure to thrive; Z74.01 Bed confinement status

== ENCOUNTER 2018-04-30 11:55 | Inpatient (IN) | payer OTHER ==
[2018-04-30] MEDS ORDERED: Morphine 100 MG in Dextrose 5% In Water 90 ML IV PRN (13:20)
[2018-04-30 14:53] VITALS: PULSE 110; O2SAT 95
--- NOTE | 2018-04-30 21:34 | CP.PCM.PRO ---
Pronouncement of Note - Clinical Findings Physical Exam: No Response Verbal/Painful Stimuli, Absent Peripheral Puls es{Carotid & Femoral}, Absent Heart & Breath Sounds, No Pupillary Light Reflex, No Corneal Reflex, Pupils Fixed & Dilated, Absence of Vital Signs - Notifications Pronouncement Notifications: Family Notified Patient Service Rep Notified: No - Autopsy Autopsy Requested: No
== END 2018-05-01 01:15 | DRG 298 ==
LOC: C.9I 11:55
PROVIDERS: ADMIT Internal Medicine; ATTEND Internal Medicine
DX: I46.9 Cardiac arrest, cause unspecified (principal)